=== PATIENT | female | born 1970 | race Caucasian/White ===

== ENCOUNTER 2024-10-27 14:57 | Emergency (ER) | payer OTHER, SELFPAY ==
[2024-10-27] VITALS (7 sets, daily range): BP systolic 114–153; BP diastolic 64–76; PULSE 56–71; TEMP 37.3; O2SAT 95–97; BMI 35.7
--- NOTE | 2024-10-27 15:24 | ED_ITS ---
HPI HPI - Extremity Injury (Lower) General Chief Complaint: Extremity Injury, Lower Stated Complaint: HIP PAIN Time Seen by Provider: 10/27/24 14:59 Source: patient Mode of arrival: walk-in Limitations: no limitations History of Present Illness HPI Narrative: Patient is a 54-year-old female presents to the ER with concerns of severe left hip pain patient states she had a fall around John time but did not have pain with the immediate fall she has had progressively worsening symptoms of pain into her left groin and left patient have progressed over the past month. She reports being to [facility] twice, her family doctor and a orthopedic clinic she is currently in physical therapy but states she keeps having worsening progressing pain. She denies any history of IV drug abuse she does smoke occasionally she has a medicine basket at the bedside which contains a prednisone taper, oxycodone, muscle relaxant, diclofenac and patient states that none of it is helping. Patient appears uncomfortable and tearful with movement she denies any abdominal pain, nausea or vomiting. Reports she had a CAT scans done at [facility] and we are awaiting those records for eval. Patient notes she has been getting hot and cold sweats as well. She can feel a clicking sensation in her hip but when the pain hits it is severe. She denies symptoms radiating down her legs she is using a walker to try to offload the leg, numbness or tingling in her bowel or bladder area. Injury: Left: hip Place: Reports home Severity: severe Relieving factors: Reports nothing Exacerbating factors: Reports weight bearing and movement Context: Reports fall Associated symptoms: Denies tingling Related Data Allergies Allergy/AdvReac Type Severity Reaction Status Date / Time No Known Drug Allergies Allergy Verified 10/27/24 15:08 Opioid HPI Opioid Management Most Recent Pain and Opioid Data: Last Pain Scale 9 10/27/24 15:59 10/27/24 Last MAR Pain Assessment 10/27/24 15:59 Review of Systems ROS Constitutional Reports: fever (subjective) and night sweats Eyes Denies: change in vision Ears, nose, mouth, and throat Denies: throat pain or neck pain Cardiovascular Denies: chest pain or palpitations Respiratory Denies: shortness of breath or cough Gastrointestinal Reports: abdominal pain (left groin pain); Denies: vomiting Genitourinary Denies: painful urination or urinary frequency Musculoskeletal Reports: extremity pain (left hip region); Denies: back pain Integumentary/Breast Denies: rash or itching Neurological Denies: headache Psychiatric Denies: anxiety PFSH PFSH Social History Little interest or pleasure in doing things: not at all Feeling down, depressed, or hopeless: not at all Exam Narrative Exam Narrative: Vital Signs reviewed and nurse's notes reviewed. The patient is not hypoxic. General: Alert, patient uncomfortable, tearful apprehensive and bracing with movement. Guarding left leg Skin: warm, intact, no pallor noted, no rash Head: Normocephalic, atraumatic Eye: Normal conjunctiva, EOMI Respiratory: No acute distress Abdomen: Normal bowel sounds, soft, tenderness in the left lower and left upper quadrant on initial palpation repeated palpation abdomen does not appear as tender or sore. nontender Hernia mid abdomen, no masses detected. No rebound, guarding, or rigidity noted. No midline pulsatile mass. Back: inspection of the back shows no obvious deformity, no swelling, no ecchymosis, contusion, abrasion, swelling, erythema, fluctuance or induration. No step offs or crepitus noted. No CVA tenderness noted bilaterally. Tenderness noted to . Straight leg raise on left is negative . Straight leg raise on right is negative Musculoskeletal: No deformity noted to bilateral lower extremities. no cyanosis or mottling noted. normal pulses at DP and PT 2+ bilaterally and symmetrically. Normal 5/5 strength at ankles with dorsiflexion and plantar flexion. Patient is able to ambulate with walker but painful. left hip with painless log roll. neg FADIR and neg FABERs.. Mild pain on end rom with External rotation, but not same pain pt feels in her groin. Normal sensation noted to the bilateral lower extremities. Pt notes occ burning into anterior thigh/ groin. Neurological: alert and oriented x4, normal sensory and motor observed. DTR 2+ at patellar and achilles bilaterally. 2 beat clonus on left Psychiatric: Cooperative Constitutional Vital Signs, click to edit/add: Last Vital Signs Temp 99.2 F 10/27/24 15:04 Pulse 71 10/27/24 15:04 Resp 18 10/27/24 15:04 BP 153/76 H 10/27/24 15:04 Pulse Ox 97 10/27/24 15:04 O2 Del Method Room Air 10/27/24 15:04 Course Vital Signs Vital signs: Vital Signs Temperature 99.2 F 10/27/24 15:04 Pulse Rate 71 10/27/24 15:04 Respiratory Rate 18 10/27/24 15:04 Blood Pressure 153/76 H 10/27/24 15:04 Pulse Oximetry 97 10/27/24 15:04 Oxygen Delivery Method Room Air 10/27/24 15:04 Temperature 99.2 F 10/27/24 15:04 Pulse Rate 71 10/27/24 15:04 Respiratory Rate 18 10/27/24 15:04 Blood Pressure 153/76 H 10/27/24 15:04 Pulse Oximetry 97 10/27/24 15:04 Oxygen Delivery Method Room Air 10/27/24 15:04 MDM - Extremity Injury (Lower) MDM Narrative Medical decision making narrative: Patient denies any illicit drug use or epidural injections she presents with severe left hip pain however on manipulation of the left hip the pain is not easily reproduced concern for lumbar radiculopathy or abdominal pathology patient with temp of 99.2 and she reports feeling hot and cold at times she has multiple prescriptions at the bedside appropriate for hip bursitis or lumbar radiculopathy symptoms but she reports no relief and has been in physical therapy and presents to our ER for further evaluation as symptoms have progressed and not improved with conservative measures. I had a lengthy discussion with the patient at bedside patient has continued pain but notes symptoms overall are improved. We discussed her laboratory studies. Patient reports being seen twice at [facility], ER and seeing a orthopedist at [facility] and has been to physical therapy once despite worsening symptoms patient states multiple times I am not taking these medications. We discussed the prescriptions of muscle relaxant prednisone likely being appropriate for her complaint and it would likely be beneficial.... patient later clarifies that she has not taken oxycodone because she cares for her grandchild . despite multiple request to [facility] for her previous studies and images, they report they are unable to fax at this time and are unable to send her medical record to us to help coordinate her care. Patient is able to ambulate with a walker here and occult fracture is less likely as she reports multiple xrays and CT's in [place]. I am more concerned with her abdominal tenderness and the potential for referred symptoms along the psoas. She reports her previous imaging was not with any contrast and I advised the risks and benefits of additional CT imaging. I drove all the way here from [place] so I want you to look into this. Patient verbally consenting to CT study. Patient verbally aware that her pain may not be coming from her hip as the laboratory technical specialist offered chair transport but patient elected to walk with her walker from room to the CT scanner and was able to carry on a conversation. Patient declined the need for any additional pain medications, I just need to find out what is going on. . Pt will have weight bearing hip xray and CT of Pelvis. Limited review left hip x-ray with pelvis shows a minimally displaced superior and inferior pelvic ramus fracture, Left hip joint appears unremarkable. Her pelvis fracture was discussed we recommend she continue with her walker limit weightbearing on the left leg as symptoms tolerate and take prescribed pain medication which she has at bedside for symptomatic relief. Stool softner also recommended. She is encouraged to follow-up with her ortho. She is aware that I do not have access to her records from [facility] to compare prior images where she reports having a CT scan. Aware of hematoma on the right kidney as she has had a fluid collection here in the past on previous scans. Patient has had a history of kidney stones in the past treated through [facility] The patient is to followup with primary care physician/ ortho in next 2-3 days or to return to the emergency department should any of the signs or symptoms worsen or new symptoms develop. Patient had questions answered. The patient agrees with the following Diagnosis and Treatment plan and the patient will be discharged home. Differential Diagnosis Differential diagnosis: Likely other (Left hip pain, AVN, hip snapping syndrome, lumbar radiculopathy, diverticulitis, aneurysm) Medical Records Medical records narrative: requested from [facility]- unable to send with FAXES down at 500[employer] ECG Data Attestation: I personally reviewed and interpreted this ECG as follows: Interpretation: EKG interpretation: Emergency Department physician interpretation, normal sinus rhythm 64 , no ectopy, no ST segment elevation, normal axis. Smoking Cessation Patient Acknowledges Need for Cessation: Yes Discharge Plan Discharge Chief Complaint: Extremity Injury, Lower Clinical Impression: Fracture of inferior pubic ramus Qualifiers: Encounter type: initial encounter Fracture type: closed Laterality: left Qualified Code(s): S32.592A - Other specified fracture of left pubis, initial encounter for closed fracture Fracture of superior pubic ramus Qualifiers: Encounter type: initial encounter Fracture type: closed Laterality: left Qualified Code(s): S32.512A - Fracture of superior rim of left pubis, initial encounter for closed fracture Patient Disposition: Home, Self-Care Time of Disposition Decision: 19:36 Condition: Good Mode of Transportation: Private Vehicle Print Language: Guatemalan Instructions: Pelvic Fracture (ED) Additional Instructions: Contact [facility] in [place] to discuss follow-up, recommend stopping physical therapy pending his evaluation. Continue with walker recommend no hard sitting and to take prescribed pain medication oxycodone or just Tylenol as needed. May stop prednisone. May stop muscle relaxants unless needed for sleep Referrals: Henri Herrera PA [Physician] - As soon as possible
--- NOTE | 2024-10-27 15:27 | ECG_ITS ---
The [facility] Test Date: 2024-10-27 Pat Name: SHARRI DIETZ Department: Room: - Gender: Female [employer]: : 1970 Requested By: [id number] Order Number: [id number] Reading MD: CHRISTEN REGAN Measurements Intervals [place] Rate: 64 P: 62 [place]: 142 QRS: 73 QRSD: 106 T: 44 QT: 410 QTc: 419 Interpretive Statements 1100 Sinus rhythm [address] depression 9150 abnormal ECG No previous ECG available for comparison Electronically Signed On 10-28-2024 7:39:23 EST by CHRISTEN REGAN
[2024-10-27 15:46] LABS: Basophils Percent Auto 0.7 % (0.2-2.0); Eosinophils Absolute Auto 0.3 10^3/uL (0.0-0.7); Eosinophils Percent Auto 4.8 % (0.9-7.0); Hemoglobin 10.4 g/dL (12.0-16.0); Immature Granulocytes Abs Auto 0.01 10^3/uL (0.00-0.03); Immature Granulocytes Pct Auto 0.2 % (0.0-0.5); Lymphocytes Absolute Auto 1.5 10^3/uL (1.2-3.8); Lymphocytes Percent Auto 27.5 % (20.5-60.0); Mean Corpuscular HGB Conc 31.5 g/dL (29.9-35.2); Mean Corpuscular Hemoglobin 27.4 pg (26.7-34.0); Mean Corpuscular Volume 86.8 fL (81.0-99.0); Mean Platelet Volume 10.2 fL (9.5-13.5); Monocytes Absolute Auto 0.4 10^3/uL (0.3-0.8); Monocytes Percent Auto 7.5 % (1.7-12.0); Neutrophils Absolute Auto 3.3 10^3/uL (1.4-6.5); Neutrophils Percent Auto 59.3 % (43.0-75.0); Platelet Count 237 10^3/uL (150-450); Red Cell Distribution Width 15.2 % (11.0-15.0); White Blood Count 5.6 10^3/uL (4.0-11.0)
[2024-10-27 15:53] LABS: Erythrocyte Sedimentation Rate 26 mm/hr (<=30)
[2024-10-27] MEDS: KETOROLAC TROMETHAMINE 30 MG/ML VIAL IVP (15:58)
[2024-10-27] MEDS: MORPHINE SULFATE 2 MG/ML SYRINGE IV (15:59)
[2024-10-27] MEDS: DIAZEPAM 10 MG/2 ML SYRINGE 2.5 MG IV (15:59)
[2024-10-27 16:03] LABS: Lactate/Lactic Acid 0.6 mmol/L (0.4-2.0)
[2024-10-27 16:04] LABS: C Reactive Protein <0.50 mg/dL (<=0.50); Troponin I High Sensitivity 5.9 pg/mL (4.0-51.3)
[2024-10-27 17:10] LABS: Bilirubin Urine NEGATIVE (NEGATIVE); Blood Urine NEGATIVE (NEGATIVE); Clarity Urine CLEAR (CLEAR); Color Urine YELLOW (YELLOW); Glucose Urine UA NEGATIVE (NEGATIVE); Ketones Urine NEGATIVE (NEGATIVE); Leukocyte Esterase Urine NEGATIVE (NEGATIVE); Nitrite Urine NEGATIVE (NEGATIVE); Protein Urine NEGATIVE (NEG/TRACE); Specific Gravity Urine >=1.030 (1.005-1.025); Urobilinogen Urine 0.2 EU/dL (0.2-1.0)
--- NOTE | 2024-10-27 17:11 | CT_ITS ---
[address] [address] Patient Name: SHARRI DIETZ MRN: [id number] date: 1970 Sex: F Assigned Patient Location: ER Current Patient Location: Accession/Order Number: [id number] Exam Date: 10/27/2024 17:45 Report Date: 10/27/2024 19:35 At the request of: DANETTE GALEAS Procedure: CT abdomen pelvis w con EXAMINATION: CT abdomen pelvis w con HISTORY: left lower quadrant abdominal pain/ left hip pain COMPARISON: No relevant comparison available. TECHNIQUE: Axial, Coronal, and Sagittal images were obtained without and/or with IV contrast as indicated by examination type. Dose reduction techniques were achieved by using automated exposure control and/or adjustment of mA and/or kV according to patient size and/or use of iterative reconstruction technique. FINDINGS: LUNG BASES: No visible pulmonary or pleural disease. LIVER: No enlargement, atrophy, suspicious density, or significant focal lesion. BILIARY: No dilatation or calcification. PANCREAS: No lesion, fluid collection, or abnormal duct dilatation. SPLEEN: No enlargement or focal lesion. ADRENALS: No mass or enlargement. KIDNEYS: Lateral right kidney subcapsular fluid collection favoring a hematoma. Multiple small calcifications within the sevilla suggesting this is chronic. Numerous nonobstructing calcifications within the superior pole calyces. Normal renal pelvis and ureter. BOWEL/MESENTERY: Diverticulosis of sigmoid colon without acute inflammatory changes. No visible mass, obstruction, or bowel wall thickening. AORTA/VASCULAR: Mild-moderate atherosclerotic disease. No aneurysm or dissection. RETROPERITONEUM: No mass or adenopathy. LYMPH NODES: No adenopathy. URINARY BLADDER: No visible focal wall thickening, lesion, or calculus. PELVIC ORGANS: Calcifications within uterus favoring leiomyomas.. Pelvic organs appropriate for patient age. ABDOMINAL WALL: Fat filled supraumbilical hernia 9.2 cm in diameter with wide neck; no strangulation. BONES: Nondisplaced fracture involving the lateral aspect of the left superior pubic ramus and the medial aspect of the left inferior pubic ramus. Subcutaneous fracture through posterior left iliac wing extending into the sacroiliac joint with fracture line still visible and sclerosis within the marrow cavity suggesting some component of healing. Heterogeneous sclerotic appearance of the right side of the sacrum suspected to represent prior fracture and some healing. OTHER: Negative. CT/CT abdomen pelvis w con IMPRESSION: 1. Nondisplaced fractures of the left superior and inferior pubic rami suspected to be acute. 2. Subacute fracture of the left iliac wing; nondisplaced. 3. Subacute to early chronic nondisplaced fracture suspected involving right side of sacrum. 4. right kidney subcapsular hematoma which is age indeterminant, but suspected to be more chronic since there are some small calcifications within the sevilla. 5. Large 9.62 cm fat filled supraumbilical ventral hernia; no strangulation.. Electronically authenticated by: REINALDO ALVAREZ Date: 10/27/2024 19:35
[2024-10-27 17:19] LABS: Bacteria Urine NONE SEEN #/HPF (NONE SEEN); Cast Seen? NONE SEEN #/LPF (NONE SEEN); Crystals Seen? None Seen #/HPF (None Seen); Mucus Urine NONE SEEN (NONE SEEN); RBC Urine 0-2 #/HPF (0-2); Squamous Epithelial Cell Urine FEW #/LPF (NONE/RARE); Urine Culture Indicated NO; WBC Urine NONE SEEN #/HPF (NONE SEEN)
--- NOTE | 2024-10-27 17:35 | XR_ITS ---
The [address] [address] Patient Name: SHARRI DIETZ MRN: [id number] date: 1970 Sex: F Assigned Patient Location: ER Current Patient Location: ER Accession/Order Number: [id number] Exam Date: 10/27/2024 17:45 Report Date: 10/27/2024 19:23 At the request of: DANETTE GALEAS Procedure: XR hip LT 2V w/ pelvis PROCEDURE: XR hip LT 2V w/ pelvis HISTORY: pain left hip COMPARISON: None. FINDINGS: BONES:Nonstress fractures of the left superior and inferior pubic rami. Mild narrowing of the hip joint spaces bilaterally without significant periarticular osteophytes. Degenerative disc disease and scoliosis of the visible lumbar spine. SOFT TISSUES:No visible soft tissue swelling. EFFUSION:None visible. OTHER: Negative. XR/XR hip LT 2V w/ pelvis IMPRESSION: 1. Acute nondisplaced left superior and inferior pubic rami fractures. Electronically authenticated by: REINALDO ALVAREZ Date: 10/27/2024 19:23
== END 2024-10-27 19:51 | disposition home or self-care (01) ==
PROVIDERS: Personal Emergency Response Attendant; Emergency Provider Emergency Medicine
DX: S32.592A Other specified fracture of left pubis, initial encounter for closed fracture (principal); S32.512A Fracture of superior rim of left pubis, initial encounter for closed fracture; W19.XXXA Unspecified fall, initial encounter; Z87.442 Personal history of urinary calculi
CPT/HCPCS: 36415; 73502; 74177; 81001; 83605; 83690; 84484; 85025; 85652; 86140; 87040; 93005; 96374; 96375; 99285; J1885; J2270; J3360; Q9967

== ENCOUNTER 2025-06-19 11:58 | Emergency (ER) | payer OTHER, SELFPAY ==
--- OUTSIDE RECORDS SUMMARY | 2024-08-01 10:00 | XMS_ITS ---
Author Organization [facility] Address [address] [place] [address] Care Team Providers Care Public Speaking Professor Name Role Phone Janie Sow Primary Care Provider [phone] Edwige Rick [phone] REASON FOR VISIT NEW PATIENT EXAM Encounters Encounter Location Date Provider Diagnosis [place] [address] [address] 08/01/2024 Edwige Rick Plan Of Treatment No Information Progress Notes * VERO DIETZADOB:1970 (54 yo F)Acc No.[id number]:08/01/2024 Patient: SHARRI HAND Provider: Vanessa Rick DDS :1970 A ge:53 Y S ex:Female Date:08/01/2024 Address:[address] [id number] Pcp:Janie Sow Subjective: * Chief Complaints: * 1 . NEW PATIENT EXAM. * Medical History: Objective: * Vitals: Assessment: Plan: * Treatment: * Images: * Electronic signature of Rasheeda Rick DDS on 06/19/2025 at 12:40 PM EDT Sign off status: Pending * Provider: Vanessa Rick DDS Date: 10/01/2023 Generated for Printi ng/Faxing/eTransmitting on: 0 06/19/2025 12:40 PM EDT
[2025-06-19 12:04] VITALS: BP 148/74; PULSE 68; TEMP 36.8; O2SAT 96; BMI 33.4
--- NOTE | 2025-06-19 12:16 | XR_ITS ---
The [address] [address] Patient Name: SHARRI DIETZ MRN: [id number] date: 1970 Sex: F Assigned Patient Location: ER Current Patient [facility]: [facility] Accession/Order Number: [id number] Exam Date: 06/19/2025 12:28 Report Date: 06/19/2025 12:51 At the request of: FILOMENA HERNANDEZ MD Procedure: XR pelvis 1-2V XR pelvis 1-2V 06/19/2025 12:34 PM SIGNS AND SYMPTOMS: ^Pain, pelvic fracture 8 months ago PROTOCOL: Frontal radiograph of the pelvis COMPARISON: 10/27/2024 FINDINGS: Healing displaced fractures of the left superior and inferior pubic rami are slightly more displacement the prior study. The superior ramus fracture is displaced caudally by 1.3 cm on the current study. There is periosteal new bone formation consistent with healing response. Sclerotic changes are noted in the sacroiliac joints, left greater than right with fractures along with a transversely oriented healing fracture of the left iliac wing. There is a levoconvex curvature of the lumbar spine with degenerative changes. XR/XR pelvis 1-2V IMPRESSION: Healing displaced fractures of the left superior and inferior pubic rami are slightly more displacement the prior study. The superior ramus fracture is displaced caudally by 1.3 cm on the current study. There is periosteal new bone formation consistent with healing response. Sclerotic changes are noted in the sacroiliac joints, left greater than right with fractures along with a transversely oriented healing fracture of the left iliac wing. Impression dictated by: Mika Urbina M.D. 06/19/2025 12:51 PM Dictation Location: [place] [address] Electronically authenticated by: [id number] Y Date: 06/19/2025 12:51
--- NOTE | 2025-06-19 12:20 | ED_ITS ---
HPI HPI - General Adult General Chief complaint: Headache Stated complaint: PELVIC AND HIP PAIN HEADACHE Time Seen by Provider: 06/19/25 12:13 Source: patient Mode of arrival: walk-in Limitations: no limitations History of Present Illness HPI narrative: 54-year-old female presented to the emergency department for pelvic pain. She broke her pelvis about 8 months ago when she fell and she continues to have pain. She is worried that it is not healing. She also complains of headache. No recent trauma or fever or localized weakness. She has been able to ambulate. Related Data Home Medications ?Medication ?Instructions ?Recorded ?Confirmed acetaminophen 325 mg tablet mg 06/19/25 calcium carbonate mg 06/19/25 escitalopram oxalate 10 mg tablet mg 06/19/25 meclizine 25 mg chewable tablet mg 06/19/25 pantoprazole 20 mg tablet,delayed mg PO 06/19/25 release Previous Rx's ?Medication ?Instructions ?Recorded acetaminophen 300 mg-codeine 30 mg 1 tab PO Q6H PRN pa in 5 days #20 06/19/25 tablet tabs Allergies Allergy/AdvReac Type Severity Reaction Status Date / Time No Known Drug Allergies Allergy Verified 06/19/25 12:06 Opioid HPI Opioid Management Most Recent Opioid Data: Last Pain Scale 9 10/27/24, 15:59 Last ED Pain Assessment Today, 12:05 Review of Systems ROS Narrative A ten point review of systems is negative except as noted above. PFSH PFSH Social History Little interest or pleasure in doing things: not at all Feeling down, depressed, or hopeless: not at all Exam Narrative Exam Narrative: Nurses note and vital signs reviewed and patient is not hypoxic. General:The patient appears in no apparent distress.Patient is sitting on the edge of the cart. Skin:Warm, dry, no pallor noted.There is no rash noted. Head:Normocephalic, atraumatic Eye: Normal conjunctiva, no drainage Ears, Nose, Mouth, and Throat: oral mucosa is moist. Nares patent. Cardiovascular:Regular Rate and Rhythm Respiratory:Patient is in no distress, no accessory muscle use, lungs are clear to auscultation, no wheezing, rales or rhonchi Back:non-tender GI: Soft and nontender Musculoskeletal: Hips have full range of motion. She is able to ambulate Neurological:A&O, normal speech Psychiatric:Cooperative Constitutional Vital Signs, click to edit/add: Last Vital Signs Temp 98.3 F 06/19/25 12:04 Pulse 68 06/19/25 12:04 Resp 14 06/19/25 12:04 BP 148/74 H 06/19/25 12:04 Pulse Ox 96 06/19/25 12:04 O2 Del Method Room Air 06/19/25 12:04 Course Vital Signs Vital signs: Vital Signs Temperature 98.3 F 06/19/25 12:04 Pulse Rate 68 06/19/25 12:04 Respiratory Rate 14 06/19/25 12:04 Blood Pressure 148/74 H 06/19/25 12:04 Pulse Oximetry 96 06/19/25 12:04 Oxygen Delivery Method Room Air 06/19/25 12:04 Temperature 98.3 F 06/19/25 12:04 Pulse Rate 68 06/19/25 12:04 Respiratory Rate 14 06/19/25 12:04 Blood Pressure 148/74 H 06/19/25 12:04 Pulse Oximetry 96 06/19/25 12:04 Oxygen Delivery Method Room Air 06/19/25 12:04 Medical Decision Making MDM Narrative Medical decision making narrative: X-ray and pelvis CT scans were performed and findings were discussed thoroughly with the patient. She has an orthopedist in [place] with whom she will be following and she was provided a disc with her images on it. She was provided prescription for Tylenol 3. Treatment diagnosis and follow-up were discussed with the patient. Differential Diagnosis Differential Diagnosis: Muscle strain, fracture Imaging Data Pelvis x-ray: Radiologist's impression: ITS Impressions Pelvis X-Ray 06/19/25 12:16 IMPRESSION: Healing displaced fractures of the left superior and inferior pubic rami are slightly more displacement the prior study. The superior ramus fracture is displaced caudally by 1.3 cm on the current study. There is periosteal new bone formation consistent with healing response. Sclerotic changes are noted in the sacroiliac joints, left greater than right with fractures along with a transversely oriented healing fracture of the left iliac wing. Impression dictated by: Mika Urbina M.D. 06/19/2025 12:51 PM Dictation Location: [place] [address] Electronically authenticated by: [id number] Y Date: 06/19/2025 12:[address] 06/19/25 12:57 IMPRESSION: Sclerotic changes are noted along both sides of the sacroiliac joints, greatest in the right sacral ala and within the left iliac bone consistent with healing fractures. There are nonunited fractures with healing response involving the left superior and inferior pubic rami with similar displacement when compared to the previous radiographs. Impression dictated by: Mika Urbina M.D. 06/19/2025 1:21 PM Dictation Location: [place] [address] Electronically authenticated by: [id number] Y Date: 06/19/2025 13:21 Discharge Plan Discharge Chief Complaint: Headache Clinical Impression: Fracture of inferior pubic ramus Qualifiers: Encounter type: initial encounter Fracture type: closed Laterality: left Qualified Code(s): S32.592A - Other specified fracture of left pubis, initial encounter for closed fracture Fracture of superior pubic ramus Qualifiers: Encounter type: initial encounter Fracture type: closed Laterality: left Qualified Code(s): S32.512A - Fracture of superior rim of left pubis, initial encounter for closed fracture Patient Disposition: Home, Self-Care Time of Disposition Decision: 13:41 Condition: Good Mode of Transportation: Private Vehicle Prescriptions / Home Meds: New acetaminophen-codeine 300-30 mg tablet 1 tab PO Q6H PRN (Reason: pain) 5 Days Qty: 20 0RF No Action acetaminophen 325 mg tablet pantoprazole 20 mg tablet,delayed release (DR/EC) PO calcium carbonate 600 mg calcium (1,500 mg) tablet meclizine 25 mg tablet,chewable escitalopram oxalate 10 mg tablet Print Language: British Instructions: Pelvic Fracture (ED) Additional Instructions: Follow-up with your new orthopedist in [place]. Referrals: Physician,Non-Staff, MD [Physician] - 1 week
--- OUTSIDE RECORDS SUMMARY | 2025-06-19 12:41 | XMS_ITS | Clinical Summary ---
Author Organization [facility] Address [address] [place] [address] Phone Care Team Providers Care Belt Maker Name Role Phone Unavailable Primary Care Provider Unavailabl e Social History Tobacco Use Types Packs/Day Years Used Date Smoking Tobacco: Never Assessed Comments Unknown Sex and Gender Information Value Date Recorded Sex Assigned at Not on file Legal Sex Female 4:46 PM EST Gender Identity Not on file Sexual Orientation Not on file Plan of Treatment Not on file
--- OUTSIDE RECORDS SUMMARY | 2025-06-19 12:41 | XMS_ITS | Clinical Summary ---
Author Organization [facility] Address [address] [place] [address] Care Team Providers Care Intermediate Frame Tender Name Role Phone Unavailable Primary Care Provider Unavailabl e Allergies No known active allergies Medications meloxicam (Mobic) 7.5 MG tablet Take 7.5 mg by mouth Daily Active ferrous sulfate 325 (65 Fe) MG EC tablet 08/30/2024 Active cyanocobalamin (Vitamin B-12) 1000 MCG tablet Take 1,000 mcg by mouth Daily 09/07/2024 Active cholecalciferol (Vitamin D-3) 1.25 MG (83636 UT) capsule Take 1,250 mcg by mouth 08/30/2024 Active Oyster Shell Calcium 500 MG tablet Take 2 tablets by mouth in the morning and 2 tablets before bedtime. 09/17/2024 Active predniSONE (Deltasone) 10 MG tabletIndication s:Low back pain, unspecified back pain laterality, unspecified chronicity, unspecified whether sciatica present Take 5 tabs p.o. daily x3 days Take 4 tabs p.o. daily x3 days Take 3 tabs p.o. daily x3 days Take 2 tabs p.o. daily x3 days Take 1 tab p.o. daily x3 days 45 tablet 10/10/2024 Active Active Problems No known active problems Encounters Date Type Department Care Team Description 04/04/2025 Telephone [facility] [address] [place] [address] Leodan Pittman DO pubic rami fx from Last 3 Months Social History Tobacco Use Types Packs/Day Years Used Date Smoking Tobacco: Unknown Smokeless Tobacco: Never Tobacco Cessation:Counseling Given: Not Answered Alcohol Use Standard Drinks/Week Comments Never 0 (1 standard drink = 0.6 oz pur e alcohol) Comments Unknown Sex and Gender Information Value Date Recorded Sex Assigned at Not on file Legal Sex Female 10:13 PM EDT Gender Identity Not on file Sexual Orientation Not on file Last Filed Vital Signs Vital Sign Reading Time Taken Comments Blood Pressure 134/79 06/18/2022 12:00 PM EDT Pulse - - Temperature - - Respiratory Rate - - Oxygen Saturation - - Inhaled Oxygen Concentration - - Weight 99.2 kg (218 lb 11.1 oz) 025 10:36 AM EST Height 170 cm (5' 6.93 ) 10/10/2024 10: 36 AM EST Body Mass Index 34.33 10/10/2024 10:36 AM EST Plan of Treatment Health Maintenance Due Date Last Done Comments CT Colonography 1970 Colonoscopy 1970 Colorectal Cancer Screening 1970 FIT-DNA 1970 FIT 1970 FOBT 1970 Sigmoidoscopy 1970 Mammogram 2010 Influenza Vaccine (#1) 2025 Pap Smear 11/03/2025 11/03/2022, 11/03/2022, 09/26 Cervical Cancer Screening 11/03/2027 HPV/Cotest 11/03/2027 11/03/2022 Insurance [employer]
--- OUTSIDE RECORDS SUMMARY | 2025-06-19 12:41 | XMS_ITS | Patient Health Record ---
Author Organization [facility] Address [address] [place] [address] Care Team Providers Care Mixer Machine Feeder Name Role Phone Janie Sow Primary Care Provider Edwige Rick Unavailable [phone] Reason For Referral No Information Plan Of Treatment No Information Insurance Providers Payer Name Payer Address Payer Phone Subscriber Number Group Number Insured Name Patient Relationship to Insured Coverage Start Date Coverage End Date [facility] [address] [place] [address] [id number] SHARRI DIETZ Self - patient is the insured 2 3
--- OUTSIDE RECORDS SUMMARY | 2025-06-19 12:41 | XMS_ITS | Clinical Summary ---
Author Organization [facility] Address [address] [place] [address] Care Team Providers Care Sane Rn Name Role Phone Asa Michael MD Unavailable [phone] Yari Barrientos MD Unavailable [phone] Elyse Siddiqi Research Nurse Unavailable U [facility] Davion Bearden MD Primary Care Provider [phone] Allergies No known active allergies Medications * This document contains information received from the source organization and may not represent a complete record from that organization. ranitidine (ZANTAC) 150 mg tablet Take 150 mg by mouth twice daily. Active multivitamin tablet Take 1 tablet by mouth once daily. Active oxybutynin ER (DITROPAN XL) 10 mg 24 hr tablet Take 10 mg by mouth once daily. Active ondansetron (ZOFRAN, HYDROCHLORIDE,) 8 mg tablet Take 1 tablet by mouth every 8 hours as needed for Nausea/Vomiting. 30 tablet 2 7 Active loperamide (IMODIUM) 2 mg cap(s) Take 1 capsule by mouth four times daily as needed. 30 capsule 1 7 Active Additional Information Patient not taking.Reason: Other, Reported on 12/02/2022 diphenoxylate-a tropine (LOMOTIL) 2.5-0.025 mg per tablet Take 2 tablets by mouth every 6 hours as needed for Diarrhea. 50 tablet 7 Active Additional Information Patient not taking.Reason: Other, Reported on 12/02/2022 potassium chloride (K-TAB) 10 mEq tablet Take 1 tablet by mouth once daily. 30 tablet [address] (PROTONIX) 40 mg tablet Take 1 tablet by mouth once daily. 30 tablet 7 Active ferrous sulfate 325 mg (65 mg iron) EC tablet Take 1 tablet by mouth once daily. 30 tablet 7 Active Loperamide HCl (ANTI-DIARRHEA) 2 mg tab Take 1 tablet by mouth as needed. 60 tablet 7 Active Additional Information Patient not taking.Reason: Other, Reported on 12/02/2022 phenazopyridine (PYRIDIUM, GERIDIUM) 100 mg tablet Take 1 tablet by mouth three times daily as needed. 30 tablet 7 Active oxyCODONE-aceta minophen (PERCOCET) 5-325 mg tablet Take 1 tablet by mouth every 6 hours as needed for Pain. 15 tablet 7 Active Additional Information Patient not taking.Reason: Other, Reported on 12/02/2022 amitriptyline (ELAVIL) 50 mg tablet Take 50 mg by mouth daily at bedtime. Active prochlorperazin e (COMPAZINE) 10 mg tablet TAKE 1 TABLET BY MOUTH EVERY 6 HOURS NEEDED 30 tablet 8 Active escitalopram oxalate (LEXAPRO) 10 mg tablet Take 1 tablet by mouth once daily. 1 8 Active meclizine (ANTIVERT) 25 mg tab take 1 tablet by mouth three times a day if needed for dizziness 3 Active Active Problems Problem Noted Date Diagnosed Date Diarrhea 01/10/2017 Overview (01/10/2017): secondary to chemotherapy Asthma with chronic obstructive pulmonary diseas e (COPD) 01/10/2017 Cancer of overlapping sites of cervix uteri 10/28 Gastroesophageal reflux disease without esophagi tis 11/02/2016 Acute posthemorrhagic anemia 11/02/2016 Family History Medical History Relation Comments Coronary Artery Disease Father Breast Cancer Maternal Aunt dx mid 50's, now (2016) 62 COPD Mother Breast Cancer Paternal Aunt dx 60's now () 70's Relation Status Comments Father Alive Maternal Aunt Alive Mother Paternal Aunt Alive Social History Tobacco Use Types Packs/Day Years Used Date Smoking Tobacco: Some Days Cigarettes 0.5 35 Smokeless Tobacco: Never Tobacco Cessation:Ready to Q uit: Not Asked; Counseling Given: Not Answered Comments:currently occasional 1-2 cigs, not daily Alcohol Use Standard Drinks/Week Comments Yes 0 (1 standard drink = 0.6 oz pur e alcohol) [facility] Area Deprivation Index Answer Date Jairon rded National Score (1-100), lower number is lower ri sk 82 01/18/2024 State Score (1-10), lower number is lower risk 7 01/18/2024 Data from: https://www.neighborhoodatlas.medicine.[facility]/. Last address used for calculation [address] 01/18/2024 Comments No Sex and Gender Information Value Date Recorded Sex Assigned at Not on file Legal Sex Female 9:47 AM EST Gender Identity Not on file Sexual Orientation Not on file Last Filed Vital Signs Vital Sign Reading Time Taken Comments Blood Pressure 131/55 12/02/2022 11:32 AM EST Pulse 62 12/02/2022 11:32 AM EST Temperature 37.3 C (99.1 F) 12/02/2022 11:32 AM EST Respiratory Rate 16 11/03/2022 10:01 AM EST Oxygen Saturation 96% 11/03/2022 10:01 AM EST Inhaled Oxygen Concentration - - Weight 89.4 kg (197 lb) 12/02/2022 11:32 AM EST Height 170 cm (5' 6.93 ) 01/10/2017 10:01 AM EDT Body Mass Index 30.92 01/10/2017 10:01 AM EDT Plan of Treatment Upcoming Encounters Date Type Department Care Team (Late st Contact Info) Description 06/19/2025 3:00 PM EDT Visit (SP) Office Gynecology Oncology [address] [place] [address] [place] [address] Sandra Kingsley APRN.DISPENSING LEAD [address] [place] [address] follow up Health Maintenance Due Date Last Done Comments Annual PCP Team Chronic Dise ase Visit 1988 Anxiety Screening 1988 Depression Screening 1988 HIV Screening 1988 Hepatitis C Screening 1988 Hepatitis B Vaccine (1 of 3 - 19+ 3-dose series) 1989 Pneumococcal Vaccine: 50+ (1 of 2 - PCV) [address] Colonography 2015 Cologuard (FIT-DNA) 2015 Colonoscopy 2015 Colorectal Cancer Screening 2015 Fecal Occult Blood 2015 Lipid Screening 2015 Sigmoidoscopy 2015 Shingrix Vaccine (1 of 2) 2020 Cervical Cancer Screening 11/03/20232022, 11/03/2022, 08/17/2019, Additional history exists DTaP,Tdap,Td Vaccine (2 - Td or Tdap) 04/23/2024 04/23/2014 Influenza Vaccine (#1) 2025 Diabetes Screening 11/01/2027 11/01/2024, 0 01/08/2018, 12/01/2016, Additional history exists Procedures Procedure Name Priority Date/Time Associated Diagnosis Comments PAP FLUID CERVICAL SCREENING Routine 11/03/2022 11:14 AM EST History of cervical cancer Encounter for follow-up surveillance of cervical cancer COMPREHENSIVE METABOLIC PANEL Routine 12/01/2016 3:15 PM EST Malignant neoplasm of overlapping sites of cervix (HCC) from Last 3 Months or Most Recently Relevant to Health Maintenance Results * PAP FLUID CERVICAL SCREENING (11/03/2022 11:14 AM EST) Case Report Gynecologic Cytology Report Case: [id number] Authorizing Provider: Janet Viera MD Collected: 11/03/2022 11:14 AM Ordering Location: Gynecology Oncology Received: 11/03/2022 11:54 AM First Screen: MANDA De, ASCP Rescreen: MANDA Saba ASCNakul Specimen: Pap, Stenotypist, Screening, CERVICAL SCREENING FLUID 11/09/2022 11:33 AM EST [facility] FINAL DIAGNOSIS A - CERVICAL SCREENING FLUID Satisfactory for interpretation, Limited cellularity Negative for Intraepithelial lesion or malignancy. Atrophic specimen 11/09/2022 11:33 AM EST [facility] at 1133 EST Clinical History HIST MALIGNANCY - DESCRIBE cervical cancer 11/09/2022 11:33 AM EST [facility] HPV Requested? Yes, automatic HPV patients over 30 11/09/2022 11:33 AM EST [facility] LMP Postmenopausal 11/09/2022 11:33 AM EST [facility] Pap Disclaimer The Pap Smear is a screening test for cervical cancer. False negative results occur with all screening tests, emphasizing the need for rescreening at recommended intervals, and clinical correlation. 11/09/2022 11:33 AM EST [facility] PAP Stenotypist Comment This specimen has been analyzed by the ThinPrep Imaging System, an automated imaging and review system, which assists the laboratory in evaluating cells on ThinPrep Pap tests. Following automated imaging, selected otero from every slide are reviewed by a continuity tester. 11/09/2022 11:33 AM EST [facility] Cytology Interpretation Negative for Intraepithelial lesion or malignancy. 11/09/2022 11:33 AM EST [facility] at 1133 EST Other Interpretation(s ) Atrophic specimen 11/09/2022 11:33 AM EST [facility] Performing Lab Technical component, continuity tester screening performed at [facility], [address] [place] [address] CLIA# [id number] Diagnostic interpretation performed at [facility], [address] [place] [address] CLIA# [id number] Audograph Operator: Roe Hughes M.D. 11/09/2022 11:33 AM EST [facility] Sterile Fluid/Body Fluid THINPREP CYTOLOGY TECHNIQUE / Unknown Non Blood / Unknown 11/03/2022 11:14 AM EST 11/03/2022 11:54 AM EST us Janet Viera MD CYTOLOGY Final R esult [facility] [address] [place] [address] [place] [address], [place] * (ABNORMAL) COMP METABOLIC PANEL (12/01/2016 3:15 PM EST) Pathologist [facility] Protein, Total 6.9 6.3 - 8.0 g/dL 12/02/2016 3:07 AM [facility] Albumin 4.1 3.9 - 4.9 g/dL 12/02/2016 3:07 AM [facility] Calcium 9.4 8.5 - 10.2 mg/dL 12/02/2016 3:07 AM [facility] Bilirubin, Total 0.2 0.2 - 1.3 mg/dL 12/02/2016 3:07 AM [facility] Alkaline Phosphatase 67 32 - 117 U/L 12/02/2016 3:07 AM [facility] AST 17 13 - 35 U/L 12/02/2016 3:07 AM [facility] Glucose 105(H) 74 - 99 mg/dL 12/02/2016 3:07 AM [facility] Comment: The [place] Diabetes Association (ADA) provides guidance for cutoff values for fasting glucose and random glucose. The ADA defines fasting as no caloric intake for at least 8 hours. Fasting plasma glucose results between 100 to 125 mg/dL indicate increased risk for diabetes (prediabetes). Fasting plasma glucose results greater than or equal to 126 mg/dL meet the criteria for diagnosis of diabetes. In the absence of unequivocal hyperglycemia, results should be confirmed by repeat testing. In a patient with classic symptoms of hyperglycemia or hyperglycemic crisis, random plasma glucose results greater than or equal to 200 mg/dL meet the criteria for diagnosis of diabetes. Reference: Standards of Medical Care in Diabetes 2016, [place] Diabetes Association. Diabetes Care. 2016.39(Suppl 1). BUN 12 7 - 21 mg/dL 12/02/2016 3:07 AM [facility] Creatinine 0.57(L) 0.58 - 0.96 mg/dL 12/02/2016 3:07 AM [facility] Sodium 141 136 - 144 mmol/L 12/02/2016 3:07 AM [facility] Potassium 4.4 3.7 - 5.1 mmol/L 12/02/2016 3:07 AM [facility] Chloride 102 97 - 105 mmol/L 12/02/2016 3:07 AM [facility] CO2 25 22 - 30 mmol/L 12/02/2016 3:07 AM EST [facility] Anion Gap 14 9 - 18 mmol/L 12/02/2016 3:07 AM [facility] ALT 14 7 - 38 U/L 12/02/2016 3:07 AM [facility] eGFR- >60 12/02/2016 3:07 AM [facility] eGFR-All Other Races >60 . 12/02/2016 3:07 AM [facility] Comment: eGFR (Estimated GFR) Units of measure: mL/min/1.73 meters squared eGFR is derived from the reexpressed MDRD Study equation using the following parameters: serum creatinine, age, gender and race. The creatinine assay has been calibrated to be traceable to IDMS. An eGFR <60 mL/min/1.73m2 for >3 months is consistent with chronic kidney disease. Refer to KDOQI guidelines for clinical interpretation. In patients with unstable renal function, e.g. those with acute kidney injury, the eGFR may not accurately reflect actual GFR. Blood specimen (specimen) BLOOD SPECIMEN / Unknown 12/01/2016 3:15 PM EST 12/01/2016 3:28 PM EST [facility] LABOR[facility] Final Result Performing Organization Address City/State/[facility] Co de Phone Number [facility] [address] [place] [address] from Last 3 Months or Most Recently Relevant to Health Maintenance Insurance [facility] MEDICAID Advance Directives Documents on File Type Date Recorded Patient Tracer Bullet Section Supervisor Expl anation Advance Directive(s) 01/10/2017 11:40 AM Care Teams Sane Rn Relationship Specialty Start Date End Date Davion Bearden MD [address] [place] [address] PCP - General Family Medicine 04/19/18 [place] [address] [place], [place] [id number] Physician Radiation Oncology 11/08/16 Yari Barrientos MD [address] [place], [place] [id number] Physician Radiation Oncology 11/24/16 Elyse Siddiqi, Research Nurse [address], [address] [place] [address] Specialty Pottery Striper Radiation Oncology 03/10/17
--- OUTSIDE RECORDS SUMMARY | 2025-06-19 12:41 | XMS_ITS | Clinical Summary ---
Author Organization [facility] Address [address] [place] [address] Care Team Providers Care Forest Patrolman Name Role Phone Unavailable Primary Care Provider Unavailabl e Encounters Date Type Department Care Team Description 06/13/2025 Transcribe Orders [facility] Neurology [address] [place] [address] System, Provider Not In DDD (degenerative disc disease), lumbosacral (Primary Dx); Left-sided low back pain with sciatica; Scoliosis, unspecified scoliosis type, unspecified spinal region; Recurrent headache; Pelvis fracture (HCC) from Last 3 Months Social History Tobacco Use Types Packs/Day Years Used Date Smoking Tobacco: Never Assessed Comments Unknown Sex and Gender Information Value Date Recorded Sex Assigned at Not on file Legal Sex Female 8:52 AM EDT Gender Identity Not on file Sexual Orientation Not on file Plan of Treatment Not on file Insurance [employer]
--- OUTSIDE RECORDS SUMMARY | 2025-06-19 12:41 | XMS_ITS ---
Author Organization [facility] Address [address] [place] [address] Care Team Providers Care Paper Cap Machine Operator Name Role Phone Asa Michael MD Unavailable [phone] Yari Barrientos MD Unavailable [phone] Elyse Siddiqi Research Nurse Unavailable [facility] Davion Bearden MD Primary Care Provider [phone] Active Problems * This document contains information received from the source organization and may not represent a complete record from that organization. Problem Noted Date Diagnosed Date Diarrhea 01/10/2017 Overview (01/10/2017): secondary to chemotherapy Asthma with chronic obstructive pulmonary diseas e (COPD) 01/10/2017 Cancer of overlapping sites of cervix uteri 10/28 Gastroesophageal reflux disease without esophagi tis 11/02/2016 Acute posthemorrhagic anemia 11/02/2016 Current Treatment and Therapy Plans No current plan information found. Past Treatment and Therapy Plans DINING ROOM MANAGER/ONC Plan Name Start Date Discontinue Date Treatment Medications Discontinue Reason Plan Provider Cycles CISPLATIN 40 D1,8,15,22, 29,36 - ONCE 12/07/19 17 02/27/2018 CISplatin iv piggyback or iv infusionfosaprepitant (EMEND)fosaprepitant iv piggyback in NaCl 0.9% (EMEND) Other Akbar, Michele P 1 of 1 cycle started CISPLATIN 40 D1,8,15,22, 29,36 - ONCE 12/08/19 17 12/06/2016 CISplatin iv piggyback or iv infusion Other Akbar, Michele P Treatment not started NON-CHEMO 1 Plan Name Start Date Discontinue Date Treatment Medications Discontinue Reason Plan Provider Cycles NS 1000ML IV DURING VISIT 12/08/2016 02/27/2018 No medications scheduled. Michele Virk 2 of 2 cycles started
--- OUTSIDE RECORDS SUMMARY | 2025-06-19 12:41 | XMS_ITS | Encounter Summary ---
Author Organization [facility] Address [facility] [place] [address] Care Team Providers Care Teacher Kindergarten Name Role Phone Asa Michael MD Unavailable [phone] Yari Barrientos MD Unavailable [phone] Elyse Siddiqi Research Nurse Unavailable U Davion Carter MD Primary Care Provider [phone] Source Comments In the event this information is protected by the Federal Confidentiality of Alcohol and Drug AbusePatient Records regulations: The Federal rules restrict any use of the information to criminally investigate or prosecute any alcohol or drug abuse patient.[facility] Encounter Details Date Type Department Care Team (Late st Contact Info) Description 11/09/2022 Patient Msg Gynecology Oncology [address] [place] [address] Janet Viera MD [address] [place] [address] Pap results Social History Tobacco Use Types Packs/Day Years Used Date Smoking Tobacco: Some Days Cigarettes 0.5 35 Smokeless Tobacco: Never Comments:currently occasiona l 1-2 cigs, not daily Alcohol Use Standard Drinks/Week Comments Yes 0 (1 standard drink = 0.6 oz pur e alcohol) [facility] Area Deprivation Index Answer Date Jairon rded National Score (1-100), lower number is lower ri sk 87 10/08/2022 State Score (1-10), lower number is lower risk N ot on file 10/08/2022 Data from: https://www.neighborhoodatlas.[facility]/. Last address used for calculation [address] 10/08/2022 Comments No Sex and Gender Information Value Date Recorded Sex Assigned at Not on file Legal Sex Female 9:47 AM EST Gender Identity Not on file Sexual Orientation Not on file documented as of this encounter Functional Status * Are you deaf or do you have serious difficulty hearing? Answer Date of Assessment Author No 11/04/2016 7:04 PM Akila Cunningham RN * Are you blind or do you have serious difficulty seeing, even when wearing glasses? Answer Date of Assessment Author No 11/04/2016 7:04 PM Akila Cunningham RN * Do you have serious difficulty walking or climbing stairs? Answer Date of Assessment Author No 11/04/2016 7:04 PM Akila Cunningham RN * Do you have difficulty dressing or bathing? Answer Date of Assessment Author No 11/04/2016 7:04 PM Akila Cunningham RN * Because of a physical, mental, or emotional condition, do you have difficulty doing errands alone such as visiting a doctor's office or shopping? Answer Date of Assessment Author No 11/04/2016 7:04 PM Akila Cunningham RN documented as of this encounter Mental Status * Because of a physical, mental, or emotional condition, do you have serious difficulty concentrating, remembering, or making decisions? Answer Entry Date Author No 11/04/2016 7:04 PM Akila Cunningham RN documented in this encounter Plan of Treatment Upcoming Encounters Date Type Department Care Team (Late st Contact Info) Description 06/19/2025 3:00 PM EDT Visit (SP) Office Gynecology Oncology [address] [place] [address] [place] [address] Sandra Kingsley APRN.PRIVATE CHEF [address] [place] [address] follow up documented as of this encounter Visit Diagnoses Not on filedocumented in this encounter Care Teams Teacher Kindergarten Relationship Specialty Start Date End Date Davion Bearden MD [address] [place] [address] PCP - General Family Medicine 04/19/18 [place] [address] [place], [place] [id number] Physician Radiation Oncology 11/08/16 Yari Barrientos MD [address] [place], [place] [id number] Physician Radiation Oncology 11/24/16 Elyse Siddiqi, Research Nurse [address] [place] [address] Specialty Solar Installation Helper Radiation Oncology 03/10/17 documented as of this encounter
--- OUTSIDE RECORDS SUMMARY | 2025-06-19 12:41 | XMS_ITS | Encounter Summary ---
Author Organization [facility] Address [address] [place] [address] Care Team Providers Care Rn Care Manager Name Role Phone Unavailable Primary Care Provider Unavailabl e Reason for Referral * Evaluate and Treat (Routine) - Authorized Specialty Diagnoses / Procedures Referred By Contac t Referred To Contact Neurosurgery Diagnoses DDD (degenerative disc disease), lumbosacral Left-sided low back pain with sciatica Scoliosis, unspecified scoliosis type, unspecified spinal region Recurrent headache Pelvis fracture (HCC) System, Provider Not In [facility] Scheduling [place] Referral ID Status Reason Start Date Expiration Date V isits Requested Visits Authorized [id number] Authorized 06/13/2025 06/13/2026 1 1 Encounter Details Date Type Department Care Team (Late st Contact Info) Description 06/13/2025 Transcribe Orders [facility] [address] [place] [address] System, Provider Not In DDD (degenerative disc disease), lumbosacral (Primary Dx); Left-sided low back pain with sciatica; Scoliosis, unspecified scoliosis type, unspecified spinal region; Recurrent headache; Pelvis fracture (HCC) Social History Tobacco Use Types Packs/Day Years Used Date Smoking Tobacco: Never Assessed Comments Unknown Sex and Gender Information Value Date Recorded Sex Assigned at Not on file Legal Sex Female 8:52 AM EDT Gender Identity Not on file Sexual Orientation Not on file documented as of this encounter Plan of Treatment Scheduled Referrals Name Type Priority Associated Diagnoses Orde r Schedule Ambulatory referral to Neurosurgery Outpatient Referral Routine DDD (degenerative disc disease), lumbosacral Left-sided low back pain with sciatica Scoliosis, unspecified scoliosis type, unspecified spinal region Recurrent headache Pelvis fracture (HCC) Ordered: 06/13/2025 documented as of this encounter Visit Diagnoses Diagnosis DDD (degenerative disc disease), lumbosacral- Primary Degeneration of lumbar or lumbosacral intervertebral disc Left-sided low back pain with sciatica Scoliosis, unspecified scoliosis type, unspecified spinal region Recurrent headache Pelvis fracture (HCC) Unspecified closed fracture of pelvis documented in this encounter
--- OUTSIDE RECORDS SUMMARY | 2025-06-19 12:49 | XMS_ITS | CCD ---
Author Organization [facility] Care Team Providers Care Upper [place] Name Role Phone CIPRIANO BARRAGAN Unavailable Unavailable MADELIN MONTALVO Unavailable Unavailable Brooke GLEASON Primary Care Physician Misty ROTHMAN Unavailable Heaven Hair Unavailable Unavailable Julee Castro Primary Care Physician Rangel Reyez Primary Care Physician Unavail able Asa Michael MD Unavailable [phone] Yari Barrientos MD Unavailable Elyse Siddiqi RN Unavailable Unavailable Osvaldo Bearden MD Primary Care Provider [phone] OSVALDO BEARDEN Primary Care Unavailable CATE VALDEZ Referring Unavailable DENIS VIERA Attending Unavailab Rangel Nam Primary Care Physician Unavail able Elyse Siddiqi RN Unavailable Unavailable Brigitte Garcia Primary Care Physician Todd Fleming Attending Unavailable Todd Fleming Attending Unavailable Todd Fleming Attending Unavailable DO Micah Greer Attending Unavailable Brigitte Garcia Attending Unavailable DO Micah Greer Attending Unavailable Ralph Platt Attending Unavailable Haim Astrrossana Gates Attending Unavailable Brigitte Garcia Attending Unavailable Iban Haji Attending Unavailable Stefano Marino Attending Unavailable Iban Haji Attending Unavailable Dann Whitmore Attending Unavailable Stefano Marino Attending Unavailable Stefano Marino Attending Unavailable Todd Fleming Attending Unavailable Jose, Brigitte L Attending Unavailable Jose, Brigitte L Admitting Unavailable Iban Haji Attending Unavailable Stefano Marino Attending Unavailable DO Ralph Platt Attending Unavailable Jose, Brigitte L Attending Unavailable Jose, Brigitte L Attending Unavailable Jose, Brigitte L Attending Unavailable Todd Fleming Attending Unavailable Bernadette, Todd Attending Unavailable Bernadette, Todd Attending Unavailable DO Micah Greer A Attending Unavailable DoDO Micah moya A Attending Unavailable Jose, Brigitte L Attending Unavailable Jose, Brigitte L Admitting Unavailable Jose, Brigitte L Admitting Unavailable Jose, Brigitte L Attending Unavailable Jose, Brigitte L Admitting Unavailable Jose, Brigitte L Attending Unavailable Unavailable [facility], Brigitte L Primary Care Physician [phone] Ralph Platt Attending Unavailable Hajdari, Astrit H Attending Unavailable Hajdari, Astrit H Attending Unavailable Jose, Brigitte L Attending Unavailable Jose, Brigitte L Attending Unavailable Jose, Brigitte L Attending Unavailable Jose, Brigitte L Referring Unavailable Elyse Siddiqi RN Unavailable Unavailable Osvaldo Bearden MD Primary Care Provider [phone] Hajdari, Astrit H Attending Unavailable Hajdari, Astrit H Attending Unavailable Jose, Brigitte L Referring Unavailable Jose, Brigitte L Attending Unavailable Jose, Brigitte L Admitting Unavailable Stefano Marino Attending Unavailable Leon Marti Primary Care Physician Elayne Adler Primary Care Physician CHAPO BAUMAN Attending Unavailable KIZZY HERRERA Referring Unavailable KIZZY HERRERA Attending Unavailable JOSE, BRIGITTE Referring Unavailable Elayne Adler Attending Unavailable Elayne Adler Attending Unavailable Elayne Adler Attending Unavailable Elayne Adler Attending Unavailable Iban Haji Attending Unavailable Stefano Marino Attending Unavailable Haim, Astrit H Attending Unavailable Haim, Astrit H Attending Unavailable Todd Fleming Attending Unavailable Elayne Adler Attending Unavailable DO Micah Greer Attending Unavailable Iban Haji Attending Unavailable Micah Greer Attending Unavailable Elayne Adler Attending Unavailable Haim, Astrit H Attending Unavailable Micah Greer Attending Unavailable Mahesh Polo Attending Unavailable Todd Fleming Attending Unavailable Mateusz Rodriguez Attending Unavailable Harenetta, Astrit H Attending Unavailable NONE, XXXX Primary Care Physician Unavailab le Unavailable Primary Care Provider UnavailLeon Doherty Attending Unavailable Leon Haro Attending Unavailable Leon Haro Admitting Unavailable Haim, Astrit H Attending Unavailable Elayne Adler Attending Unavailable Leon Haro Attending Unavailable Haim, Astrit H Attending Unavailable Elayne Adler Attending Unavailable Sg Kaminski Attending Unavailab le Sg Kaminski Admitting Unavailab le NO FAMILY, PHYSICIAN Primary Care Unavailable Leon Haro Attending Unavailable Leon Haro Admitting Unavailable Medications Current Medications Medication Drug Class(es) Dates Sig (Normalized) Sig (Original) acetaminophen 325 mg disintegrating oral tablet (7 sources) Start: 05-25-2025 take 1 tablet by mouth every four hours as needed for pain acetaminophen 325 mg oral tablet, disintegrating 325 mg = 1 tab(s), Oral, q4hr, PRN for pain, # 50 tab(s), Refills(s) 0, Pharmacy: [email or web address] #[id number], 167, cm, 05/25/25 15:56:00 EDT, Height/Length Dosing, 96, kg, 05/25/25 15:56:00 EDT, Weight Dosing Start Date: 05/25/25 Status: Ordered Quantity: 50.0 Unit: tab(s) Repeat number: 1 Start: 05-05-2024 take 2 tablets by mo uth every four hours as needed for pain acetaminophen 325 mg Tab 650 mg = 2 tab(s), Oral, q4hr, PRN Pain/Fever, # 30 tab(s), Refills(s) 0, Pharmacy: [facility] #[id number], 170.2, cm, 05/05/24 15:35:00 EDT, Height/Length Dosing, 96.1, kg, 05/05/24 15:35:00 EDT, Weight Dosing Start Date: 05/05/24 Status: Ordered acetaminophen 325 mg / butalbital 50 mg / caffeine 40 mg oral tablet (11 sources) Barbiturate, Central Nervous System Stimulant, Methylxanthine Start: 05-07-2025 take 1 tablet by mouth every four hours for headache APAP/butalbital/caffeine 325 mg-50 mg-40 mg Tab 1 tab(s), Oral, q4hr for headache, 15 tab(s), Refill(s) 0, [email or web address] #[id number], 167.6, cm, 05/07/25 12:10:00 EDT, Height/Length Dosing, 96.5, kg, 05/07/25 12:10:00 EDT, Weight Dosing Start Date: 05/07/25 Status: Ordered Quantity: 15.0 Unit: tab(s) Repeat number: 1 Start: 02-18-2025 take 2 tablets by mo uth every six hours for headache APAP/butalbital/caffeine 325 mg-50 mg-40 mg Tab 2 tab(s), Oral, q6hr for headache, 20 tab(s), Refill(s) 0 Start Date: 02/18/25 Status: Ordered Quantity: 20.0 Unit: tab(s) Repeat number: 1 acetaminophen 325 mg / oxyCODONE hydrochloride 5 mg oral tablet (20 sources) Opioid Agonist Start: 10-14-2024 Percocet 5 mg- 325 mg oral tablet 1 tab(s), Oral, q6hr as needed for pain, 12 tab(s), Refill(s) 0, [email or web address] #[id number], 170, cm, 10/14/24 12:06:00 EST, Height/Length Dosing, 99.2, kg, 10/14/24 12:06:00 EST, Weight Dosing Start Date: 10/14/24 Status: Ordered Quantity: 12.0 Unit: tab(s) Repeat number: 1 Indications: Strain of adductor muscle, fascia and tendon of left thigh, initial encounter; Start: 12-12-2023 End: 12-15-2023 acetaminophen-oxycodone 325 mg-5 mg Tab 1 tab(s), Oral, q4hr for pain for 3 day(s), 12 tab(s), Refill(s) 0, [facility] #[id number], 170, cm, 12/12/23 12:49:00 EDT, Height/Length Dosing, 92, kg, 12/12/23 12:49:00 EDT, Weight Dosing Start Date: 12/12/23 Stop Date: 12/15/23 Status: Ordered Start: 11-21-2021 Percocet 325 m g-5 mg Tab 1 tab(s), Oral, q4hr as needed for pain, 15 tab(s), Refill(s) 0, Take one tab by mouth every four hours as needed for pain Start Date: 11/21/21 Status: Ordered Start: 11-21-2021 Percocet 325 m g-5 mg Tab 1 tab(s), Oral, q4hr as needed for pain, 15 tab(s), Refill(s) 0, Take one tab by mouth every four hours as needed for pain Start Date: 11/21/21 Status: Ordered Start: 01-28-2017 End: 08-28-2024 Percocet 5 mg-325 mg oral ta blet 1 tab(s), Oral, q6hr for 3 day(s), 12 tab(s), Refill(s) 0, [email or web address] #[id number], 170, cm, 08/24/24 23:22:00 EST, Height/Length Dosing, 101, kg, 08/24/24 23:22:00 EST, Weight Dosing Start Date: 08/25/24 Stop Date: 08/28/24 Status: Ordered Comment on above: Take 1 tablet by queenie th every 6 hours as needed for Pain. albuterol CFC free 90 mcg/inh Inh Aer w/Adapt 8 gm (Ventolin) (4 sources) Start: 06-02-2022 take 1 puff(s) by inhalation every six hours for wheezing albuterol CFC free 90 mcg/inh Inh Aer w/Adapt 8 gm (Ventolin) 1 puff(s), Inhalation, q6hr for wheezing, 8.5 gm, Refill(s) 0, [facility] #[id number], 168, cm, 06/02/22 9:45:00 EDT, Height/Length Dosing, 93, kg, 09/07/22 9:45:00 EDT, Weight Dosing Start Date: 06/02/22 Status: Ordered albuterol HFA 90 mcg/inh MDI (20 sources) Start: 08-15-2024 take 2 puff(s) by inhalation every four hours for wheezing albuterol HFA 90 mcg/inh MDI 2 puff(s), Inhalation, q4hr for wheezing, 18 gm, Refill(s) 3, [email or web address] #[id number], 170, cm, 08/15/24 13:38:00 EST, Height/Length Dosing, 98.9, kg, 08/15/24 13:38:00 EST, Weight Dosing Start Date: 08/15/24 Status: Ordered Quantity: 18.0 Unit: g Repeat number: 4 Indications: Nicotine dependence, unspecified, uncomplicated; Start: 08-15-2024 take 2 puff(s) by in halation every four hours for wheezing albuterol HFA 90 mcg/inh MDI 2 puff(s), Inhalation, q4hr for wheezing, 18 gm, Refill(s) 3, [email or web address] #[id number], 170, cm, 08/15/24 13:38:00 EST, Height/Length Dosing, 98.9, kg, 08/15/24 13:38:00 EST, Weight Dosing Start Date: 08/15/24 Status: Ordered Quantity: 18.0 Unit: g Repeat number: 4 Indication: Nicotine dependence, unspecified, uncomplicated Start: 08-15-2024 take 2 puff(s) by in halation every four hours for wheezing albuterol HFA 90 mcg/inh MDI 2 puff(s), Inhalation, q4hr for wheezing, 18 gm, Refill(s) 3, [email or web address] #[id number], 170, cm, 08/15/24 13:38:00 EST, Height/Length Dosing, 98.9, kg, 08/15/24 13:38:00 EST, Weight Dosing Start Date: 08/15/24 Status: Ordered Start: 12-08-2023 take 2 puff(s) by in halation every four hours for wheezing albuterol HFA 90 mcg/inh MDI 2 puff(s), Inhalation, q4hr for wheezing, 18 gm, Refill(s) 0, [facility] #[id number], 170, cm, 12/08/23 13:13:00 EDT, Height/Length Dosing, 92.3, kg, 12/08/23 13:13:00 EDT, Weight Dosing Start Date: 12/08/23 Status: Ordered Start: 10-10-2021 End: 10-10-2021 take 2 puff(s) by inhalation every four hours for wheezing albuterol HFA 90 mcg/inh MDI 2 puff(s), Inhalation, q4hr for wheezing, 18 gm, Refill(s) 0, [facility] #[id number], 170, cm, 10/10/21 15:05:00 EST, Height/Length Dosing, 88.5, kg, 10/10/21 15:05:00 EST, Weight Dosing Start Date: 10/10/21 Stop Date: 10/10/21 Status: Ordered amitriptyline hydrochloride 50 mg oral tablet (7 sources) Tricyclic Antidepressant take 1 tablet by mouth once daily at bedtime amitriptyline (ELAVIL) 50 mg tablet Take 50 mg by mouth daily at bedtime. Active Comment on above: Take 50 mg by mouth daily at bedtime. amoxicillin 500 mg oral capsule (2 sources) Penicillin-class Antibacterial Start: take 1 capsule by mouth every twelve hours amoxicillin 500 mg Cap 500 mg = 1 cap(s), Oral, q12hr, # 20 cap(s), Refills(s) 0, Pharmacy: [facility] #[id number], 168, cm, 11/23/22 21:09:00 EST, Height/Length Dosing, 87.4, kg, 11/23/22 21:09:00 EST, Weight Dosing Start Date: 11/23/22 Status: Ordered amoxicillin 875 mg / clavulanate 125 mg oral tablet (1 source) Penicillin-class Antibacterial Start: End: Augmentin 875 mg-125 mg Tab 1 tab(s), Oral, BID for 10 day(s), 20 tab(s), Refill(s) 0, [facility] #[id number], 170, cm, 11/26/23 17:28:00 EST, Height/Length Dosing, 91.8, kg, 11/26/23 17:28:00 EST, Weight Dosing Start Date: 11/26/23 Stop Date: 12/06/23 Status: Ordered atropine sulfate 0.025 mg / diphenoxylate hydrochloride 2.5 mg oral tablet (7 sources) Anticholinergic, Cholinergic Muscarinic Antagonist, Antidiarrheal Start: 017 take 2 tablets by mouth every six hours as needed diphenoxylate-atropi ne (LOMOTIL) 2.5-0.025 mg per tablet Take 2 tablets by mouth every 6 hours as needed for Diarrhea. 50 tablet 12/24/2016 Active Comment on above: Take 2 tablets by [facility] every 6 hours as needed for Diarrhea. brompheniramine maleate 0.4 mg/ml / dextromethorphan hydrobromide 2 mg/ml / pseudoephedrine hydrochloride 6 mg/ml oral solution (7 sources) alpha-Adrenergic Agonist, Uncompetitive M-cevoij-R-aspartate Receptor Antagonist, Sigma-1 Agonist Start: 024 take 5 mL by mouth four times daily Bromfed DM oral syrup 5 mL, Oral, QID for cold symptoms, 200 mL, Refill(s) 0, [facility] #[id number], 170, cm, 11/26/23 17:28:00 EST, Height/Length Dosing, 91.8, kg, 11/26/23 17:28:00 EST, Weight Dosing Start Date: 11/26/23 Status: Ordered Start: 11-14-2023 End: 11-16-2023 Bromfed DM oral syrup 10 mL, Oral, q4hr for cold symptoms for 2 day(s), 80 mL, Refill(s) 0, MAX 40 mL/day, [facility] #[id number], 170, cm, 11/14/23 12:31:00 EST, Height/Length Dosing, 91.8, kg, 11/14/23 12:31:00 EST, Weight Dosing Start Date: 11/14/23 Stop Date: 11/16/23 Status: Ordered Start: 12-19-2020 take 5 mL by mouth f our times daily Bromfed DM oral syrup 5 mL, Oral, QID for cold symptoms, 200 mL, Refill(s) 0 Start Date: 12/19/20 Status: Ordered calcium carbonate 1500 mg oral tablet (20 sources) Start: 06-11-2025 take 1 tablet by mouth twice daily calcium (as carbonate) 600 mg oral tablet 600 mg = 1 tab(s), Oral, BID, # 60 tab(s), Refills(s) 0, Pharmacy: [facility] #[id number], 167, cm, 06/03/25 17:09:00 EDT, Height/Length Dosing, 97.3, kg, 06/03/25 17:09:00 EDT, Weight Dosing Start Date: 06/11/25 Status: Ordered Quantity: 60.0 Unit: tab(s) Repeat number: 1 Start: 06-03-2025 take 5 tablets by [facility] twice daily calcium 500 mg tablets 2,500 mg = 2 tab(s), Oral, BID, # 360 tab(s), Refills(s) 3, Pharmacy: [facility] #[id number], 167, cm, 06/03/25 17:09:00 EDT, Height/Length Dosing, 97.3, kg, 06/03/25 17:09:00 EDT, Weight Dosing Start Date: 06/03/25 Status: Ordered Quantity: 360.0 Unit: tab(s) Repeat number: 4 Start: 09-17-2024 take 2 tablets by ma ut in the morning Oyster Shell Calcium 500 MG tablet Take 2 tablets by mouth in the morning and 2 tablets before bedtime. 09/17/2024 Active Start: 09-07-2024 take 5 tablets by [facility] twice daily calcium 500 mg tablets 2,500 mg = 2 tab(s), Oral, BID, # 360 tab(s), Refills(s) 3, Pharmacy: [facility] #[id number], 170, cm, 09/07/24 11:19:00 EST, Height/Length Dosing, 99.2, kg, 09/07/24 11:19:00 EST, Weight Dosing Start Date: 09/07/24 Status: Ordered Quantity: 360.0 Unit: tab(s) Repeat number: 4 cefdinir 300 mg oral capsule (2 sources) Cephalosporin Antibacterial Start: 06-03-2025 take 1 capsule by mouth every twelve hours cefdinir 300 mg Cap = 1 cap(s), Oral, q12hr, Refills(s) 0 Start Date: 06/03/25 Status: Ordered Repeat number: 1 cephalexin 500 mg oral capsule (6 sources) Cephalosporin Antibacterial Start: 08-25-2024 End: 08-30-2024 take 1 capsule by mouth three times daily Keflex 500 mg Cap 500 mg = 1 cap(s), Oral, TID, X 5 day(s), # 15 cap(s), Refills(s) 0, Pharmacy: [facility] #[id number], 170, cm, 08/24/24 23:22:00 EST, Height/Length Dosing, 101, kg, 08/24/24 23:22:00 EST, Weight Dosing Start Date: 08/25/24 Stop Date: 08/30/24 Status: Ordered Start: 03-04-2024 End: 03-11-2024 take 1 capsule by mouth every twelve hours Keflex 500 mg Cap 500 mg = 1 cap(s), Oral, q12hr, X 7 day(s), # 14 cap(s), Refills(s) 0, Pharmacy: [facility] #[id number], 170, cm, 03/04/24 12:01:00 EDT, Height/Length Dosing, 92, kg, 03/04/24 12:01:00 EDT, Weight Dosing Start Date: 03/04/24 Stop Date: 03/11/24 Status: Ordered Start: 12-23-2023 End: 12-28-2023 take 1 capsule by mouth four times daily Keflex 500 mg Cap 500 mg = 1 cap(s), Oral, QID, X 5 day(s), # 20 cap(s), Refills(s) 0, Pharmacy: [facility] #[id number], 170, cm, 12/23/23 11:37:00 EDT, Height/Length Dosing, 92, kg, 12/23/23 11:37:00 EDT, Weight Dosing Start Date: 12/23/23 Stop Date: 12/28/23 Status: Ordered Start: 12-12-2023 End: 12-19-2023 take 1 capsule by mouth every six hours Keflex 500 mg Cap 500 mg = 1 cap(s), Oral, q6hr, X 7 day(s), # 28 cap(s), Refills(s) 0, Pharmacy: [facility] #[id number], 170, cm, 12/12/23 12:49:00 EDT, Height/Length Dosing, 92, kg, 12/12/23 12:49:00 EDT, Weight Dosing Start Date: 12/12/23 Stop Date: 12/19/23 Status: Ordered cholecalciferol 1.25 mg oral capsule (20 sources) Vitamin D Start: 08-30-2024 cholecalcifero l 50,000 intl units oral capsule 1,250 mcg = 1 cap(s), Oral, q7day, # 12 cap(s), Refills(s) 1, Pharmacy: [facility] #[id number], 170, cm, 08/24/24 23:22:00 EST, Height/Length Dosing, 101, kg, 08/24/24 23:22:00 EST, Weight Dosing Start Date: 08/30/24 Status: Ordered Quantity: 12.0 Unit: cap(s) Repeat number: 2 Indications: Vitamin D deficiency, unspecified; Start: 08-30-2024 cholecalcifero l (Vitamin D-3) 1.25 MG (14638 UT) capsule Take 1,250 mcg by mouth 08/30/2024 Active ciclopirox 80 mg/ml topical solution (20 sources) Start: 08-15-2024 Ciclodan 8% topical solution 1 anand, Topical, Daily, 6.6 mL, Refill(s) 3, Apply to great toe after shower , file nail, daily to affected area, [facility] #[id number], 170, cm, 08/15/24 13:38:00 EST, Height/Length Dosing, 98.9, kg, 08/15/24 13:38:00 EST, Weight Dosing Start Date: 08/15/24 Status: Ordered Quantity: 6.6 Unit: mL Repeat number: 4 Indications: Tinea unguium; cyclobenzaprine hydrochloride 10 mg oral tablet (14 sources) Muscle Relaxant Start: 10-14-2024 take 1 tablet by mouth three times daily as needed for muscle spasms cyclobenzaprine 10 mg Tab 10 mg = 1 tab(s), Oral, TID, PRN for spasm, # 20 tab(s), Refills(s) 0, Pharmacy: [facility] #[id number], 170, cm, 10/14/24 12:06:00 EST, Height/Length Dosing, 99.2, kg, 10/14/24 12:06:00 EST, Weight Dosing Start Date: 10/14/24 Status: Ordered Quantity: 20.0 Unit: tab(s) Repeat number: 1 dextromethorphan hydrobromide 3 mg/ml / promethazine hydrochloride 1.25 mg/ml oral solution (2 sources) Phenothiazine, Uncompetitive C-olahbm-K-aspartate Receptor Antagonist, Sigma-1 Agonist Start: 12-04-2024 End: 12-09-2024 take 5 mL by mouth every six hours for cough dextromethorphan-pr omethazine 15 mg-6.25 mg/5 mL Oral Syrup 5 mL 5 mL, Oral, q6hr for cough for 5 day(s), 200 mL, Refill(s) 0, [facility] #[id number], 170, cm, 12/04/24 17:58:00 EDT, Height/Length Dosing, 100.6, kg, 12/04/24 17:58:00 EDT, Weight Dosing Start Date: 12/04/24 Stop Date: 12/09/24 Status: Ordered diclofenac sodium 0.01 mg/mg topical gel (13 sources) Nonsteroidal Anti-inflammatory Drug Start: 10-24-2024 Voltaren Gel 1% Gel 1 anand, Topical, QID for pain, 100 gram, Refill(s) 0, [facility] #[id number], 170, cm, 10/24/24 13:29:00 EST, Height/Length Dosing, 100.6, kg, 10/24/24 13:29:00 EST, Weight Dosing Start Date: 10/24/24 Status: Ordered Quantity: 100.0 Unit: g Repeat number: 1 dicyclomine hydrochloride 10 mg oral capsule (5 sources) Anticholinergic Start: 05-01-2025 take 1 capsule by mouth four times daily Bentyl 10 mg Cap = 1 cap(s), Oral, QID, Refills(s) 0 Start Date: 05/01/25 Status: Ordered Repeat number: 1 Start: 04-01-2025 End: 04-08-2025 take 1 capsule by mouth four times daily Bentyl 10 mg Cap 10 mg = 1 cap(s), Oral, QID, X 7 day(s), # 28 cap(s), Refills(s) 0, Pharmacy: [facility] #[id number], 170.2, cm, 04/01/25 18:15:00 EDT, Height/Length Dosing, 96, kg, 04/01/25 18:15:00 EDT, Weight Dosing Start Date: 04/01/25 Stop Date: 04/08/25 Status: Ordered Quantity: 28.0 Unit: cap(s) Repeat number: 1 doxycycline hyclate 100 mg oral capsule (1 source) Tetracycline-class Drug Start: 12-06-2024 End: 12-11-2024 take 1 capsule by mouth twice daily doxycycline hyclate 100 mg Cap 100 mg = 1 cap(s), Oral, BID, X 5 day(s), # 10 cap(s), Refills(s) 0, Pharmacy: [facility] #[id number], 170, cm, 12/06/24 10:33:00 EDT, Height/Length Dosing, 100.6, kg, 12/06/24 10:33:00 EDT, Weight Dosing Start Date: 12/06/24 Stop Date: 12/11/24 Status: Ordered escitalopram 10 mg oral tablet (20 sources) Serotonin Reuptake Inhibitor Start: 06-03-2025 take 1 tablet by mouth once daily escitalopram 10 mg Tab 10 mg = 1 tab(s), Oral, Daily, # 30 tab(s), Refills(s) 1, Pharmacy: [facility] #[id number], 167, cm, 06/03/25 17:09:00 EDT, Height/Length Dosing, 97.3, kg, 06/03/25 17:09:00 EDT, Weight Dosing Start Date: 06/03/25 Status: Ordered Quantity: 30.0 Unit: tab(s) Repeat number: 2 Indications: Generalized anxiety disorder; Start: 08-03-2018 take 1 tablet by queenie th once daily escitalopram 10 mg Tab 10 mg = 1 tab(s), Oral, Daily, # 90 tab(s), Refills(s) 3, Pharmacy: [facility] #[id number], 170, cm, 08/15/24 13:38:00 EST, Height/Length Dosing, 98.9, kg, 08/15/24 13:38:00 EST, Weight Dosing Start Date: 08/15/24 Status: Ordered Quantity: 90.0 Unit: tab(s) Repeat number: 4 Indications: Generalized anxiety disorder; Comment on above: Take 1 tablet by queenie once daily. ferrous sulfate 325 mg delayed release oral tablet (20 sources) Start: 08-30-2024 ferrous sulfate 325 (65 Fe) MG EC tablet 08/30/2024 Active Start: 08-15-2024 take 1 tablet by queenie once daily ferrous sulfate 325 mg Tab 325 mg = 1 tab(s), Oral, Daily, # 90 tab(s), Refills(s) 3, Pharmacy: [facility] #[id number], 170, cm, 08/15/24 13:38:00 EST, Height/Length Dosing, 98.9, kg, 08/15/24 13:38:00 EST, Weight Dosing Start Date: 08/15/24 Status: Ordered Quantity: 90.0 Unit: tab(s) Repeat number: 4 Indications: Anemia, unspecified; Start: 12-08-2023 take 1 tablet by [facility] once daily ferrous sulfate 325 mg Tab 325 mg = 1 tab(s), Oral, Daily, # 90 tab(s), Refills(s) 1, Pharmacy: [facility] #[id number], 170, cm, 12/08/23 13:13:00 EDT, Height/Length Dosing, 92.3, kg, 12/08/23 13:13:00 EDT, Weight Dosing Start Date: 12/08/23 Status: Ordered Start: 01-06-2023 take 1 tablet by [facility] once daily ferrous sulfate 325 mg Tab 325 mg = 1 tab(s), Oral, Daily, Refills(s) 0 Start Date: 01/06/23 Status: Ordered Start: 10-12-2022 End: 11-11-2022 take 1 tablet by mouth once daily ferrous sulfate 325 mg oral enteric coated tablet 325 mg = 1 tab(s), Oral, Daily, X 30 day(s), # 30 tab(s), Refills(s) 0, Pharmacy: [facility] #[id number], 168, cm, 10/12/22 15:42:00 EST, Height/Length Dosing, 93, kg, 10/12/22 15:42:00 EST, Weight Dosing Start Date: 10/12/22 Stop Date: 11/11/22 Status: Ordered Start: 11-17-2020 take 1 tablet by queenie th once daily ferrous sulfate 325 mg Tab 325 mg = 1 tab(s), Oral, Daily, # 90 tab(s), Refills(s) 1, [facility]: [facility], 168, cm, 10/24/20 16:25:00 EST, Height/Length Dosing, 91.7, kg, 10/24/20 16:25:00 EST, Weight Dosing Start Date: 11/17/20 Status: Ordered Start: 01-04-2017 take 1 tablet by queenie th once daily ferrous sulfate 325 mg (65 mg iron) EC tablet Take 1 tablet by mouth once daily. 30 tablet 01/04/2017 Active Comment on above: Take 1 tablet by queenie th once daily. hyoscyamine sulfate 0.125 mg oral tablet (5 sources) Start: 1 take 1 tablet by mouth four times daily hyoscyamine 0.125 mg oral Tab 0.125 mg = 1 tab(s), Oral, QID, Refills(s) 0 Start Date: 10/21/20 Status: Ordered ibuprofen 600 mg oral tablet (20 sources) Nonsteroidal Anti-inflammatory Drug Start: 5 take 1 tablet by mouth every eight hours ibuprofen 600 mg Tab 600 mg = 1 tab(s), Oral, q8hr, # 30 tab(s), Refills(s) 0, Pharmacy: [facility] #[id number], 167, cm, 05/25/25 15:56:00 EDT, Height/Length Dosing, 96, kg, 05/25/25 15:56:00 EDT, Weight Dosing Start Date: 05/25/25 Status: Ordered Quantity: 30.0 Unit: tab(s) Repeat number: 1 Start: 05-05-2024 End: 10-31-2024 take 1 tablet by mouth every eight hours ibuprofen 600 mg Tab 600 mg = 1 tab(s), Oral, q8hr, # 30 tab(s), Refills(s) 0, Pharmacy: [facility] #[id number], 167, cm, 05/25/25 15:56:00 EDT, Height/Length Dosing, 96, kg, 05/25/25 15:56:00 EDT, Weight Dosing Start Date: 05/25/25 Status: Ordered Quantity: 30.0 Unit: tab(s) Repeat number: 1 ketorolac tromethamine 10 mg oral tablet (5 sources) Nonsteroidal Anti-inflammatory Drug, Cyclooxygenase Inhibitor Start: 03-20-2023 take 1 tablet by mouth every six hours as needed for pain ketorolac 10 mg Tab 10 mg = 1 tab(s), Oral, q6hr, PRN for pain, # 10 tab(s), Refills(s) 0, Pharmacy: [facility] #[id number], 168, cm, 03/20/23 10:44:00 EDT, Height/Length Dosing, 92, kg, 03/20/23 10:44:00 EDT, Weight Dosing Start Date: 03/20/23 Status: Ordered lidocaine 0.05 mg/mg medicated patch (20 sources) Antiarrhythmic, Amide Local Anesthetic Start: 06-08-2024 lidocaine Top 5% film Patch 1 patch(es), Topical, Daily, 7 patch(es), Refill(s) 0, apply 12 hours on and 12 hours off daily[id number], 167.6, cm, 06/08/24 19:40:00 EDT, Height/Length Dosing, 98, kg, 06/08/24 19:40:00 EDT, Weight Dosing Start Date: 06/08/24 Status: Ordered Quantity: 7.0 Unit: patch(es) Repeat number: 1 loperamide hydrochloride 2 mg oral tablet (14 sources) Opioid Agonist Start: 01-11-2017 Loperamide HCl (ANTI-DIARRHEA) 2 mg tab Take 1 tablet by mouth as needed. 60 tablet 01/11/2017 Active Start: 12-20-2016 take 1 capsule by mo [facility] every six hours as needed loperamide (IMODIUM) 2 mg cap(s) Take 1 capsule by mouth four times daily as needed. 30 capsule 1 12/20/2016 Active Comment on above: Take 1 capsule by mo [facility] four times daily as needed. [facility] loratadine 10 mg oral tablet (5 sources) Start: take 1 tablet by mouth once daily loratadine 10 mg Tab 10 mg = 1 tab(s), Oral, Daily, # 90 tab(s), Refills(s) 3, Pharmacy: [id number], 170, cm, 12/19/20 10:06:00 EDT, Height/Length Dosing, 92, kg, 12/19/20 10:06:00 EDT, Weight Dosing Start Date: 01/19/21 Status: Ordered meclizine hydrochloride 25 mg chewable tablet (20 sources) Antiemetic Start: take 1 tablet by mouth three times daily as needed for dizziness meclizine 25 mg oral tablet, chewable 25 mg = 1 tab(s), Chewed, TID, PRN for dizziness, # 30 tab(s), Refills(s) 1, Pharmacy: [facility] #[id number], 167, cm, 06/13/25 10:14:00 EDT, Height/Length Dosing, 94.2, kg, 06/13/25 10:17:00 EDT, Weight Dosing Start Date: 06/13/25 Status: Ordered Quantity: 30.0 Unit: tab(s) Repeat number: 2 Indications: Dizziness and giddiness; Start: 09-18-2022 End: 10-22-2022 take 1 tablet by mouth three times daily as needed for dizziness meclizine 25 mg Tab 25 mg = 1 tab(s), Oral, TID, PRN for dizziness, # 15 tab(s), Refills(s) 0, Pharmacy: [facility] #[id number], 170, cm, 12/08/23 13:13:00 EDT, Height/Length Dosing, 92.3, kg, 12/08/23 13:13:00 EDT, Weight Dosing Start Date: 12/08/23 Status: Ordered Comment on above: take 1 tablet by queenie three times a day if needed for dizziness meloxicam 7.5 mg oral tablet (10 sources) Nonsteroidal Anti-inflammatory Drug Start: 08-15-20 take 1 tablet by mouth once daily Mobic 7.5 mg Tab 7.5 mg = 1 tab(s), Oral, Daily, # 90 tab(s), Refills(s) 0, Pharmacy: [facility] #[id number], 170, cm, 08/15/24 13:38:00 EST, Height/Length Dosing, 98.9, kg, 08/15/24 13:38:00 EST, Weight Dosing Start Date: 08/15/24 Status: Ordered methocarbamol 500 mg oral tablet (1 source) Muscle Relaxant Start: 03-12-20 End: 03-15-20 take 1 tablet by mouth three times daily Robaxin 500 mg Tab 500 mg = 1 tab(s), Oral, TID, X 3 day(s), # 9 tab(s), Refills(s) 0, [id number], 167.6, cm, 03/11/24 23:41:00 EDT, Height/Length Dosing, 95.6, kg, 03/11/24 23:37:00 EDT, Weight Dosing Start Date: 03/12/24 Stop Date: 03/15/24 Status: Ordered multivitamin tablet (7 sources) take 1 tablet by mouth once daily multivitamin tablet Take 1 tablet by mouth once daily. Active take 1 tablet by mouth once monique y multivitamin tablet Take 1 tablet by mouth once daily. 0 Active Comment on above: Take 1 tablet by queenie once daily. mupirocin 20 mg/ml topical cream (4 sources) RNA Synthetase Inhibitor Antibacterial Start: 04-15-2025 mupirocin Top 2% Crm 1 anand, Topical, TID, 30 gram, Refill(s) 0, [facility] #[id number], 170.2, cm, 04/15/25 1:09:00 EDT, Height/Length Dosing, 96.5, kg, 04/15/25 1:09:00 EDT, Weight Dosing Start Date: 04/15/25 Status: Ordered Quantity: 30.0 Unit: g Repeat number: 1 naproxen 500 mg oral tablet (20 sources) Nonsteroidal Anti-inflammatory Drug Start: 10-14-2024 take 1 tablet by mouth twice daily Naprosyn 500 mg Tab 500 mg = 1 tab(s), Oral, BID, # 20 tab(s), Refills(s) 0, Pharmacy: [facility] #[id number], 170, cm, 10/14/24 12:06:00 EST, Height/Length Dosing, 99.2, kg, 10/14/24 12:06:00 EST, Weight Dosing Start Date: 10/14/24 Status: Ordered Quantity: 20.0 Unit: tab(s) Repeat number: 1 Start: 12-08-2023 take 1 tablet by queenie th twice daily naproxen 500 mg Tab 500 mg = 1 tab(s), Oral, BID, Take one tab by mouth two times a day, # 14 tab(s), Refills(s) 0, Pharmacy: [facility] #[id number], 170, cm, 03/04/24 12:01:00 EDT, Height/Length Dosing, 92, kg, 03/04/24 12:01:00 EDT, Weight Dosing Start Date: 03/04/24 Status: Ordered Start: 03-22-2023 End: 10-09-2023 take 1 tablet by mouth twice daily as needed for pain Naprosyn 500 mg Tab 500 mg = 1 tab(s), Oral, BID, PRN for pain, # 20 tab(s), Refills(s) 0, Pharmacy: [facility] #[id number], 168, cm, 03/22/23 21:56:00 EDT, Height/Length Dosing, 92.4, kg, 03/22/23 21:56:00 EDT, Weight Dosing Start Date: 03/22/23 Status: Ordered Nebulizer machine with apparatus (7 sources) Start: 12-19-2020 Nebulizer mach ine with apparatus Nebulizer machine with apparatus, Print Requisition, Supply Start Date: 12/19/20 Status: Ordered ondansetron 4 mg disintegrating oral tablet (20 sources) Serotonin-3 Receptor Antagonist Start: 04-01-2025 take 1 tablet by mouth every six hours as needed for nausea ondansetron 4 mg Dis Tab 4 mg = 1 tab(s), Oral, q6hr, PRN Nausea/Vomiting, # 12 tab(s), Refills(s) 0, Pharmacy: [facility] #[id number], 170.2, cm, 04/01/25 18:15:00 EDT, Height/Length Dosing, 96, kg, 04/01/25 18:15:00 EDT, Weight Dosing Start Date: 04/01/25 Status: Ordered Quantity: 12.0 Unit: tab(s) Repeat number: 1 Start: 03-04-2024 take 1 tablet by queenie th every six hours as needed for nausea Zofran 4 mg Tab 4 mg = 1 tab(s), Oral, q6hr, PRN Nausea, Take one tab by mouth every six hours as needed for nausea, # 10 tab(s), Refills(s) 0, Pharmacy: [facility] #[id number], 170, cm, 03/04/24 12:01:00 EDT, Height/Length Dosing, 92, kg, 03/04/24 12:01:00 EDT, Weight Dosing Start Date: 03/04/24 Status: Ordered Start: 12-13-2016 take 1 tablet by queenie th every eight hours as needed ondansetron (ZOFRAN, HYDROCHLORIDE,) 8 mg tablet Take 1 tablet by mouth every 8 hours as needed for Nausea/Vomiting. 30 tablet 2 12/13/2016 Active Comment on above: Take 1 tablet by queenie th every 8 hours as needed for Nausea/Vomiting. One A Day Women's Complete oral tablet (20 sources) Start: 12-08-2023 One A Day Women's Complete oral tablet 1 tab(s), Oral, Daily, 90 tab(s), Refill(s) 0, [facility] #[id number], 170, cm, 12/08/23 13:13:00 EDT, Height/Length Dosing, 92.3, kg, 12/08/23 13:13:00 EDT, Weight Dosing Start Date: 12/08/23 Status: Ordered Quantity: 90.0 Unit: tab(s) Repeat number: 1 Indications: Encounter for general adult medical examination without abnormal findings; Start: 12-08-2023 One A Day Wome n's Complete oral tablet 1 tab(s), Oral, Daily, 90 tab(s), Refill(s) 0, [facility] #[id number], 170, cm, 12/08/23 13:13:00 EDT, Height/Length Dosing, 92.3, kg, 12/08/23 13:13:00 EDT, Weight Dosing Start Date: 12/08/23 Status: Ordered Quantity: 90.0 Unit: tab(s) Repeat number: 1 Indication: Encounter for general adult medical examination without abnormal findings Start: 12-08-2023 One A Day Wome n's Complete oral tablet 1 tab(s), Oral, Daily, 90 tab(s), Refill(s) 0, [facility] #[id number], 170, cm, 12/08/23 13:13:00 EDT, Height/Length Dosing, 92.3, kg, 12/08/23 13:13:00 EDT, Weight Dosing Start Date: 12/08/23 Status: Ordered 24 hr oxybutynin chloride 5 mg extended release oral tablet (20 sources) Cholinergic Muscarinic Antagonist Start: 01-04-2024 take 1 tablet by mouth once daily oxybutynin 5 mg ER Tab 5 mg = 1 tab(s), Oral, Daily, # 30 tab(s), Refills(s) 0, Pharmacy: [facility] #[id number], 170, cm, 01/04/24 10:11:00 EDT, Height/Length Dosing, 90.6, kg, 01/04/24 10:11:00 EDT, Weight Dosing Start Date: 01/04/24 Status: Ordered Start: 12-25-2023 take 1 tablet by queenie th once daily oxybutynin 5 mg ER Tab 5 mg = 1 tab(s), Oral, Daily, # 30 tab(s), Refills(s) 0, Pharmacy: [facility] #[id number], 170, cm, 12/25/23 19:10:00 EDT, Height/Length Dosing, 92, kg, 12/25/23 19:10:00 EDT, Weight Dosing Start Date: 12/25/23 Status: Ordered take 1 tablet by queenie th once daily oxybutynin ER (DITROPAN XL) 10 mg 24 hr tablet Take 10 mg by mouth once daily. Active Comment on above: Take 10 mg by mouth once daily. pantoprazole 20 mg delayed release oral tablet (20 sources) Proton Pump Inhibitor Start: take 1 tablet by mouth once daily Pantoprazole [address] Tab 20 mg = 1 tab(s), Oral, Daily, # 90 tab(s), Refills(s) 4, Pharmacy: [facility] #[id number], 167, cm, 06/03/25 17:09:00 EDT, Height/Length Dosing, 97.3, kg, 06/03/25 17:09:00 EDT, Weight Dosing Start Date: 06/03/25 Status: Ordered Quantity: 90.0 Unit: tab(s) Repeat number: 5 Indications: Gastro-esophageal reflux disease without esophagitis; Start: 08-15-2024 take 1 tablet by queenie th once daily Pantoprazole [address] Tab 20 mg = 1 tab(s), Oral, Daily, # 90 tab(s), Refills(s) 4, Pharmacy: [facility] #[id number], 170, cm, 08/15/24 13:38:00 EST, Height/Length Dosing, 98.9, kg, 08/15/24 13:38:00 EST, Weight Dosing Start Date: 08/15/24 Status: Ordered Quantity: 90.0 Unit: tab(s) Repeat number: 5 Indications: Gastro-esophageal reflux disease without esophagitis; Start: 12-08-2023 take 1 tablet by queenie once daily Pantoprazole [address] Tab 20 mg = 1 tab(s), Oral, Daily, # 90 tab(s), Refills(s) 4, Pharmacy: [facility] #[id number], 170, cm, 12/08/23 13:13:00 EDT, Height/Length Dosing, 92.3, kg, 12/08/23 13:13:00 EDT, Weight Dosing Start Date: 12/08/23 Status: Ordered Start: 10-15-2022 take 1 tablet by queenie once daily Pantoprazole [address] Tab 20 mg = 1 tab(s), Oral, Daily, # 90 tab(s), Refills(s) 4, Pharmacy: [facility] #[id number], 168, cm, 10/15/22 11:22:00 EST, Height/Length Dosing, 87.4, kg, 10/15/22 11:22:00 EST, Weight Dosing Start Date: 10/15/22 Status: Ordered Start: 01-04-2017 take 1 tablet by queenie once daily pantoprazole DR (PROTONIX) 40 mg tablet Take 1 tablet by mouth once daily. 30 tablet 01/04/2017 Active Comment on above: Take 1 tablet by queenie once daily. phenazopyridine hydrochloride 100 mg oral tablet (7 sources) Start: take 1 tablet by mouth every eight hours as needed phenazopyridine (PYRIDIUM, GERIDIUM) 100 mg tablet Take 1 tablet by mouth three times daily as needed. 30 tablet 01/18/2017 Active Comment on above: Take 1 tablet by [facility] three times daily as needed. polyethylene glycol 3350 48327 mg powder for oral solution (6 sources) Osmotic Laxative Start: polyethylene glycol 3350 Oral Pwdr for Recon 17 gram, Oral, Daily, dissolve in water before taking, # 255 gram, Refills(s) 0 Start Date: 04/09/24 Status: Ordered polymyxin b 19160 unt/ml / trimethoprim 1 mg/ml ophthalmic solution (1 source) Dihydrofolate Reductase Inhibitor Antibacterial, Polymyxin-class Antibacterial Start: End: Polytrim 10 mL Soln-Opth 1 drop(s), OPTH, q3hr for 7 day(s), 10 mL, Refill(s) 0, [facility] #[id number], 170, cm, 11/26/23 17:28:00 EST, Height/Length Dosing, 91.8, kg, 11/26/23 17:28:00 EST, Weight Dosing Start Date: 11/26/23 Stop Date: 12/03/23 Status: Ordered predniSONE 50 mg oral tablet (20 sources) Start: take 1 tablet by mouth once daily predniSONE 50 mg Tab = 1 tab(s), Oral, Daily, Refills(s) 0 Start Date: 06/03/25 Status: Ordered Repeat number: 1 Start: 12-06-2024 End: 12-11-2024 take 1 tablet by mouth once daily predniSONE 50 mg Tab 50 mg = 1 tab(s), Oral, Daily, X 5 day(s), # 5 tab(s), Refills(s) 0, Pharmacy: [facility] #[id number], 170, cm, 12/06/24 10:33:00 EDT, Height/Length Dosing, 100.6, kg, 12/06/24 10:33:00 EDT, Weight Dosing Start Date: 12/06/24 Stop Date: 12/11/24 Status: Ordered Start: 10-10-2024 take 5 tablets by mo [facility] once daily, then take 4 tablets by mouth once daily, then take 3 tablets by mouth once daily, then take 2 tablets by mouth once daily, then take 1 tablet by mouth once daily predniSONE (Deltasone) 10 MG tablet Indications: Low back pain, unspecified back pain laterality, unspecified chronicity, unspecified whether sciatica present Take 5 tabs p.o. daily x3 days Take 4 tabs p.o. daily x3 days Take 3 tabs p.o. daily x3 days Take 2 tabs p.o. daily x3 days Take 1 tab p.o. daily x3 days 45 tablet 10/10/2024 Active Start: 08-15-2024 predniSONE 10 mg Tab = 1 -, Oral, As Directed, Take 3 tabs by mouth daily x5 days, then 2 tabs daily x5 days, then 1 tab daily x5 days., # 30 tab(s), Refills(s) 0, Pharmacy: [facility] #[id number], 170, cm, 08/15/24 13:38:00 EST, Height/Length Dosing, 98.9, kg, 08/15/24 13:38:00 EST, Weight Dosing Start Date: 08/15/24 Status: Ordered Quantity: 30.0 Unit: tab(s) Repeat number: 1 Start: 06-08-2024 take 1 tablet by queenie once daily predniSONE 10 mg Tab 10 mg = 1 tab(s), Oral, As Directed, Take 3 tabs by mouth daily x3 days, then 2 tabs daily x3 days, then 1 tab daily x3 days., # 18 tab(s), Refills(s) 0, Pharmacy: [facility] #[id number], 167.6, cm, 06/08/24 19:40:00 EDT, Height/Length Dosing, 98, kg, 06/08/24 19:40:00 EDT, Weight Dosing Start Date: 06/08/24 Status: Ordered Start: 06-15-2022 End: 06-24-2022 take 3 tablets by mouth once daily, then take 2 tablets by mouth once daily, then take 1 tablet by mouth once daily predniSONE 20 mg Tab See Instructions, Take 3 tabs by mouth daily x 3 days, then take 2 tabs by mouth daily x 3 days, then take 1 tab by mouth daily x 3 days., # 18 tab(s), Refills(s) 0, Pharmacy: [facility] #[id number], 170, cm, 06/15/22 12:13:00 EDT, Height/Length D... Start Date: 06/15/22 Stop Date: 06/24/22 Status: Ordered prochlorperazine 10 mg oral tablet (7 sources) Phenothiazine Start: 06-19-2018 take 1 tablet by mouth every six hours as needed prochlorperazine (COMPAZINE) 10 mg tablet TAKE 1 TABLET BY MOUTH EVERY 6 HOURS NEEDED 30 tablet 06/19/2018 Active Comment on above: TAKE 1 TABLET BY QUEENIE TH EVERY 6 HOURS NEEDED promethazine hydrochloride 25 mg oral tablet (13 sources) Phenothiazine Start: 04-01-2025 take 1 tablet by mouth every six hours as needed for nausea promethazine 25 mg Tab 25 mg = 1 tab(s), Oral, q6hr, PRN as needed for nausea/vomiting, # 10 tab(s), Refills(s) 0, Pharmacy: [facility] #[id number], 170.2, cm, 04/01/25 18:15:00 EDT, Height/Length Dosing, 96, kg, 04/01/25 18:15:00 EDT, Weight Dosing Start Date: 04/01/25 Status: Ordered Quantity: 10.0 Unit: tab(s) Repeat number: 1 Start: 06-03-2024 take 1 tablet by queenie th every six hours as needed for nausea promethazine 25 mg Tab 25 mg = 1 tab(s), Oral, q6hr, PRN as needed for nausea/vomiting, # 12 tab(s), Refills(s) 0, Pharmacy: [facility] #[id number], 170, cm, 06/03/24 12:11:00 EDT, Height/Length Dosing, 98.3, kg, 06/03/24 12:11:00 EDT, Weight Dosing Start Date: 06/03/24 Status: Ordered Start: 10-13-2021 take 5 mL by mouth e very six hours for cough Promethazine DM oral syrup 5 mL, Oral, q6hr for cough, 120 mL, Refill(s) 0, [facility] #[id number], 168, cm, 10/13/21 10:51:00 EST, Height/Length Dosing, 88, kg, 10/13/21 10:51:00 EST, Weight Dosing Start Date: 10/13/21 Status: Ordered psyllium 3400 mg powder for oral suspension (12 sources) Start: 01-04-2024 Metamucil Unflavored Smooth Texture Sugar Free 3.4 g/5.4 g oral powder 3.4 gram, Oral, Daily, daily- stop 2-3 days if diarrhea occurs, # 450 gram, Refills(s) 1, Pharmacy: [facility] #[id number], 170, cm, 01/04/24 10:11:00 EDT, Height/Length Dosing, 90.6, kg, 01/04/24 10:11:00 EDT, Weight Dosing Start Date: 01/04/24 Status: Ordered raNITIdine 150 mg oral tablet (7 sources) Histamine-2 Receptor Antagonist take 1 tablet by mouth twice daily ranitidine (ZANTAC) 150 mg tablet Take 150 mg by mouth twice daily. Active Comment on above: Take 150 mg by mouth twice daily. sulfamethoxazole 800 mg / trimethoprim 160 mg oral tablet (13 sources) Dihydrofolate Reductase Inhibitor Antibacterial, Sulfonamide Antimicrobial Start: 03-12-2024 Bactrim D.S. 800 mg-160 mg Tab 1 tab(s), Oral, BID, 20 tab(s), Refill(s) 0, [facility] #[id number], 167.6, cm, 03/11/24 23:41:00 EDT, Height/Length Dosing, 95.6, kg, 03/11/24 23:37:00 EDT, Weight Dosing Start Date: 03/12/24 Status: Ordered Start: 04-21-2021 Bactrim D.S. 8 00 mg-160 mg Tab 1 tab(s), Oral, BID, 20 tab(s), Refill(s) 0 Start Date: 04/21/21 Status: Ordered tamsulosin hydrochloride 0.4 mg oral capsule (20 sources) alpha-Adrenergic Sasha Start: 08-25-2024 take 1 capsule by mouth once daily Flomax 0.4 mg Cap 0.4 mg = 1 cap(s), Oral, Daily, # 10 cap(s), Refills(s) 0, Pharmacy: [facility] #[id number], 170, cm, 08/24/24 23:22:00 EST, Height/Length Dosing, 101, kg, 08/24/24 23:22:00 EST, Weight Dosing Start Date: 08/25/24 Status: Ordered Quantity: 10.0 Unit: cap(s) Repeat number: 1 Start: 01-04-2024 take 1 capsule by [facility] daily tamsulosin 0.4 mg Cap 0.4 mg = 1 cap(s), Oral, Daily, # 10 cap(s), Refills(s) 0, Pharmacy: [facility] #[id number], 170, cm, 03/09/24 13:27:00 EDT, Height/Length Dosing, 98.3, kg, 03/09/24 13:27:00 EDT, Weight Dosing Start Date: 03/09/24 Status: Ordered Start: 12-23-2023 take 1 capsule by [facility] once daily Flomax 0.4 mg Cap 0.4 mg = 1 cap(s), Oral, Daily, # 10 cap(s), Refills(s) 0, Pharmacy: [facility] #[id number], 170, cm, 12/23/23 11:37:00 EDT, Height/Length Dosing, 92, kg, 12/23/23 11:37:00 EDT, Weight Dosing Start Date: 12/23/23 Status: Ordered traMADol hydrochloride 50 mg oral tablet (1 source) Opioid Agonist Start: 12-25-2023 End: 12-28-2023 take 1 tablet by mouth every six hours as needed for pain traMADOL 50 mg Tab 50 mg = 1 tab(s), Oral, q6hr, PRN for pain, X 3 day(s), # 12 tab(s), Refills(s) 0, Pharmacy: [facility] #[id number], 170, cm, 12/25/23 19:10:00 EDT, Height/Length Dosing, 92, kg, 12/25/23 19:10:00 EDT, Weight Dosing Start Date: 12/25/23 Stop Date: 12/28/23 Status: Ordered vitamin b12 1 mg oral tablet (6 sources) Vitamin B12 Start: 09-07-2024 take 1 tablet by mouth once daily cyanocobalamin (Vitamin B-12) 1000 MCG tablet Take 1,000 mcg by mouth Daily 09/07/2024 Active Vitamin B12 1000 mcg Tab (19 sources) Start: 09-07-2024 take 1 tablet by mouth once daily Vitamin B12 1000 mcg Tab 1,000 mcg = 1 tab(s), Oral, Daily, # 90 tab(s), Refills(s) 0, [id number], 170, cm, 09/07/24 11:19:00 EST, Height/Length Dosing, 99.2, kg, 09/07/24 11:19:00 EST, Weight Dosing Start Date: 09/07/24 Status: Ordered Quantity: 90.0 Unit: tab(s) Repeat number: 1 Indications: Deficiency of other specified B group vitamins; Start: 09-07-2024 take 1 tablet by queenie th once daily Vitamin B12 1000 mcg Tab 1,000 mcg = 1 tab(s), Oral, Daily, # 90 tab(s), Refills(s) 0, [id number], 170, cm, 09/07/24 11:19:00 EST, Height/Length Dosing, 99.2, kg, 09/07/24 11:19:00 EST, Weight Dosing Start Date: 09/07/24 Status: Ordered Quantity: 90.0 Unit: tab(s) Repeat number: 1 Indication: Deficiency of other specified B group vitamins Start: 09-07-2024 take 1 tablet by qeuenie th once daily Vitamin B12 1000 mcg Tab 1,000 mcg = 1 tab(s), Oral, Daily, # 90 tab(s), Refills(s) 0, [facility][id number], 170, cm, 09/07/24 11:19:00 EST, Height/Length Dosing, 99.2, kg, 09/07/24 11:19:00 EST, Weight Dosing Start Date: 09/07/24 Status: Ordered Zofran ODT 4 mg Tab-Dis (20 sources) Start: 08-25-2024 take 1 tablet by mouth every six hours Zofran ODT 4 mg Tab-Dis 4 mg = 1 tab(s), Oral, q6hr, # 12 tab(s), Refills(s) 0, [id number], 170, cm, 08/24/24 23:22:00 EST, Height/Length Dosing, 101, kg, 08/24/24 23:22:00 EST, Weight Dosing Start Date: 08/25/24 Status: Ordered Quantity: 12.0 Unit: tab(s) Repeat number: 1 Start: 08-25-2024 take 1 tablet by queenie th every six hours Zofran ODT 4 mg Tab-Dis 4 mg = 1 tab(s), Oral, q6hr, # 12 tab(s), Refills(s) 0, Pharmacy: [facility] #[id number], 170, cm, 08/24/24 23:22:00 EST, Height/Length Dosing, 101, kg, 08/24/24 23:22:00 EST, Weight Dosing Start Date: 08/25/24 Status: Ordered Start: 01-04-2024 take 1 tablet by queenie th every eight hours as needed for nausea Zofran ODT 4 mg Tab-Dis 4 mg = 1 tab(s), Oral, q8hr, PRN Nausea/Vomiting, # 12 tab(s), Refills(s) 0, Pharmacy: [facility] #[id number], 170, cm, 01/04/24 10:11:00 EDT, Height/Length Dosing, 90.6, kg, 01/04/24 10:11:00 EDT, Weight Dosing Start Date: 01/04/24 Status: Ordered Start: 12-25-2023 take 1 tablet by queenie th every eight hours as needed for nausea Zofran ODT 4 mg Tab-Dis 4 mg = 1 tab(s), Oral, q8hr, PRN Nausea/Vomiting, # 12 tab(s), Refills(s) 0, Pharmacy: [facility] #[id number], 170, cm, 12/25/23 19:10:00 EDT, Height/Length Dosing, 92, kg, 12/25/23 19:10:00 EDT, Weight Dosing Start Date: 12/25/23 Status: Ordered Start: 12-12-2023 take 1 tablet by queenie th every eight hours as needed for nausea Zofran ODT 4 mg Tab-Dis 4 mg = 1 tab(s), Oral, q8hr, PRN Nausea/Vomiting, # 12 tab(s), Refills(s) 0, Pharmacy: [facility] #[id number], 170, cm, 12/12/23 12:49:00 EDT, Height/Length Dosing, 92, kg, 12/12/23 12:49:00 EDT, Weight Dosing Start Date: 12/12/23 Status: Ordered Start: 11-21-2021 take 1 tablet by queenie th every eight hours Zofran ODT 4 mg Tab-Dis 4 mg = 1 tab(s), Oral, q8hr, # 10 tab(s), Refills(s) 0, Pharmacy: [facility] #37, 168, cm, 11/20/21 16:13:00 EST, Height/Length Dosing, 88, kg, 11/20/21 16:13:00 EST, Weight Dosing Start Date: 11/21/21 Status: Ordered Completed/Discontinued Medications Medication Drug Class(es) Dates Sig (Normalized) Sig (Original) One A Day Women's Complete (9 sources) Start: 10-12-2022 One A Day Women's Complete Oral, Daily, Refill(s) 0 Start Date: 10/12/22 Status: Ordered potassium chloride 10 meq extended release oral capsule (14 sources) Start: 01-19-2021 take 1 capsule by mouth once daily potassium chloride 10 mEq Cap-ER 10 mEq = 1 cap(s), Oral, Daily, # 90 cap(s), Refills(s) 3, [facility], 170, cm, 12/19/20 10:06:00 EDT, Height/Length Dosing, 92, kg, 12/19/20 10:06:00 EDT, Weight Dosing Start Date: 01/19/21 Status: Ordered Start: 01-04-2017 take 1 tablet by queenie th once daily potassium chloride (K-TAB) 10 mEq tablet Take 1 tablet by mouth once daily. 30 tablet 01/04/2017 Active Comment on above: Take 1 tablet by queenie th once daily. Problems Active Problems Problem Classification Problem Date Documented Da te Episodic/Chronic Abdominal hernia (20 sources) Hernia of abdominal cavity; Translations: [Hiatal hernia] Onset: 5 04-18-2015 Episodic Abdominal pain (20 sources) Abdominal pain; Translations: [Flank pain] Onset: 4 10-21-2020 Episodic Administrative/social admission (3 sources) Patient encounter status; Translations: [Persons encountering health services in other specified circumstances] Onset: 4 Episodic Anxiety disorders (20 sources) Generalized anxiety disorder; Translations: [Generalized anxiety disorder] Onset: 5 01-04-2024 Chronic Asthma (20 sources) Asthma; Translations: [Asthma-chronic obstructive pulmonary disease overlap syndrome] Onset: 7 01-19-2021 Chronic Bacterial infection; unspecified site (2 sources) Infection due to Escherichia coli; Translations: [Unspecified Escherichia coli [E. coli] as the cause of diseases classified elsewhere] Onset: 4 Episodic Calculus of urinary tract (20 sources) History of calculus of kidney; Translations: [Kidney stone] Onset: 4 03-07-2020 Episodic Cancer of cervix (20 sources) Malignant tumor of cervix; Translations: [Overlapping malignant neoplasm of uterine cervix] Onset: 7 12-19-2020 Chronic Cancer of cervix (20 sources) History of malignant neoplasm of cervix; Translations: [Personal history of malignant neoplasm of cervix uteri] 10-21-2020 Episodic Chronic obstructive pulmonary disease and bronchiectasis (5 sources) Asthma-chronic obstructive pulmonary disease overlap syndrome; Translations: [Chronic obstructive pulmonary disease, unspecified] Onset: 7 01-10-2017 Chronic Chronic obstructive pulmonary disease and bronchiectasis (20 sources) Bronchitis 12-18-2019 Episodic Conditions associated with dizziness or vertigo (20 sources) Dizziness and giddiness; Translations: [Dizziness and giddiness] Onset: 3 Episodic Deficiency and other anemia (20 sources) Anemia; Translations: [Anemia, unspecified] Onset: 4 01-19-2021 Episodic Deficiency and other anemia (20 sources) Anemia due to unknown mechanism 12-07-2013 Episodic Deficiency and other anemia (20 sources) Iron deficiency anemia; Translations: [Iron deficiency anemia, unspecified] Onset: 5 08-30-2024 Episodic Diabetes mellitus without complication (20 sources) Prediabetes; Translations: [Prediabetes] Onset: 4 09-07-2024 Episodic Disorders of lipid metabolism (20 sources) Hyperlipidemia; Translations: [Hyperlipidemia, unspecified] Onset: 4 08-30-2024 Chronic E Codes: Natural/environment (1 source) Exposure to other specified factors, subsequent encounter; Translations: [Exposure to potentially harmful entity (event)] Episodic Esophageal disorders (20 sources) Gastroesophageal reflux disease; Translations: [Gastroesophageal reflux disease without esophagitis] Onset: 7 11-17-2015 Chronic Fever of unknown origin (1 source) Fever; Translations: [Fever, unspecified] Onset: 5 Episodic Genitourinary symptoms and ill-defined conditions (20 sources) Increased frequency of urination; Translations: [Nocturia] Onset: 4 03-07-2020 Episodic Headache; including migraine (20 sources) Migraine; Translations: [Migraine, unspecified, not intractable, without status migrainosus] Onset: 4 03-14-2014 Chronic Headache; including migraine (20 sources) Headache; Translations: [Headache, unspecified] Onset: 4 Episodic Heart valve disorders (20 sources) Irregular heart rate 03-28-2018 Episodic Immunizations and screening for infectious disease (18 sources) Infectious disease carrier; Translations: [Exposure to communicable disease] Onset: 8 01-16-2018 Episodic Comment on above: ESBL E coli in urine and cervical swab 01/12/18 Inflammation; infection of eye (except that caused by tuberculosis or sexually transmitteddisease) (1 source) Conjunctivitis; Translations: [Unspecified conjunctivitis] Onset: 4 Episodic Malaise and fatigue (20 sources) Fatigue; Translations: [Other fatigue] Onset: 4 Episodic Mood disorders (20 sources) Major depressive disorder; Translations: [Major depressive disorder, single episode, unspecified] Onset: 2 Chronic Mycoses (20 sources) Onychomycosis due to dermatophyte ; Translations: [Tinea unguium] Onset: 4 Episodic Nausea and vomiting (20 sources) Nausea; Translations: [Nausea] Onset: 4 10-15-2022 Episodic Noninfectious gastroenteritis (2 sources) Noninfectious enteritis; Translations: [Noninfective gastroenteritis and colitis, unspecified] Onset: 5 Episodic Nonspecific chest pain (1 source) Chest pain; Translations: [Chest pain, unspecified] Onset: 4 Episodic Nutritional deficiencies (20 sources) Vitamin D deficiency; Translations: [Vitamin D deficiency, unspecified] Onset: 4 08-30-2024 Chronic Nutritional deficiencies (20 sources) Cobalamin deficiency; Translations: [Vitamin B deficiency] Onset: 4 09-07-2024 Episodic Osteoarthritis (20 sources) Osteoarthritis of hip; Translations: [Unilateral primary osteoarthritis, left hip] Onset: 4 Chronic Other acquired deformities (20 sources) Scoliosis deformity of spine; Translations: [Scoliosis, unspecified] Onset: 4 09-07-2024 Chronic Other connective tissue disease (1 source) Pain in right lower limb; Translations: [Pain in right leg] Onset: 5 Episodic Other connective tissue disease (1 source) Pain in left lower limb; Translations: [Pain in left leg] Onset: 5 Episodic Other diseases of bladder and urethra (20 sources) Urethral stricture 03-07-2020 Episodic Other diseases of kidney and ureters (20 sources) Hydronephrosis due to ureteral obstruction 03-07-2020 Episodic Other fractures (3 sources) Multiple fractures of lumbar spine and/or pelvis; Translations: [Fracture of unspecified parts of lumbosacral spine and pelvis, initial encounter for closed fracture] Onset: 5 Episodic Other fractures (3 sources) Fracture of pelvis; Translations: [Fracture of unspecified parts of lumbosacral spine and pelvis, initial encounter for closed fracture] 06-13-2025 Episodic Other gastrointestinal disorders (8 sources) Diarrhea; Translations: [Diarrhea, unspecified] Onset: 7 01-10-2017 Episodic Other gastrointestinal disorders (2 sources) Constipation, unspecified; Translations: [Constipation, unspecified] Onset: 4 Episodic Other gastrointestinal disorders (20 sources) Constipation 01-04-2024 Episodic Other lower respiratory disease (1 source) Cough; Translations: [Cough, unspecified] Onset: 5 Episodic Other nervous system disorders (1 source) Chronic pain; Translations: [Other chronic pain] Chronic Other nervous system disorders (20 sources) Paresthesia; Translations: [Paresthesia of skin] Onset: 4 Episodic Other non-traumatic joint disorders (1 source) Pain in unspecified knee; Translations: [Pain of joint of knee] Onset: 3 Episodic Other nutritional; endocrine; and metabolic disorders (20 sources) Body mass index 30+ - obesity 12-18-2019 Chronic Other nutritional; endocrine; and metabolic disorders (20 sources) Obesity; Translations: [Other obesity] Onset: 4 12-18-2019 Chronic Other nutritional; endocrine; and metabolic disorders (8 sources) Obese class I; Translations: [Body mass index (BMI) 32.0-32.9, adult] Onset: 3 Chronic Other nutritional; endocrine; and metabolic disorders (19 sources) Hypocalcemia 09-07-2024 Chronic Other nutritional; endocrine; and metabolic disorders (1 source) Hypocalcemia; Translations: [Hypocalcemia] Onset: 4 Chronic Other screening for suspected conditions (not mental disorders or infectious disease) (3 sources) Abnormal cytology findings; Translations: [Other abnormal cytological findings on specimens from cervix uteri] Onset: 4 Episodic Other skin disorders (20 sources) Discoloration of skin 10-21-2020 Episodic Other upper respiratory disease (20 sources) Allergic rhinitis 10-13-2022 Chronic Other upper respiratory infections (1 source) Chronic sinusitis; Translations: [Chronic sinusitis, unspecified] Onset: 4 Chronic Other upper respiratory infections (3 sources) Acute upper respiratory infection; Translations: [Acute upper respiratory infection, unspecified] Onset: 2 Episodic Otitis media and related conditions (1 source) Otitis media; Translations: [Otitis media, unspecified, left ear] Onset: 4 Episodic Pancreatic disorders (not diabetes) (1 source) Acute pancreatitis; Translations: [Acute pancreatitis without necrosis or infection, unspecified] Onset: 4 Episodic Pneumonia (except that caused by tuberculosis or sexually transmitted disease) (1 source) Pneumonia; Translations: [Pneumonia, unspecified organism] Onset: 5 Episodic Residual codes; unclassified (20 sources) Menopause present 03-28-2018 Episodic Residual codes; unclassified (1 source) Localized edema; Translations: [Localized edema] Onset: 5 Episodic Screening and history of mental health and substance abuse codes (20 sources) Ex-smoker 03-07-2020 Episodic Sexually transmitted infections (not HIV or hepatitis) (1 source) Human papillomavirus deoxyribonucleic acid test positive, high risk on cervical specimen; Translations: [Cervical high risk human papillomavirus (HPV) DNA test positive] Episodic Skin and subcutaneous tissue infections (20 sources) Onychia of toe 12-08-2023 Episodic Spondylosis; intervertebral disc disorders; other back problems (20 sources) Degeneration of lumbar intervertebral disc; Translations: [Degeneration of lumbosacral intervertebral disc] Onset: 4 06-17-2024 Chronic Spondylosis; intervertebral disc disorders; other back problems (20 sources) Sciatica; Translations: [Sciatica, unspecified side] Onset: 4 Episodic Sprains and strains (3 sources) Injury of adductor muscle and tendon of thigh; Translations: [Strain of adductor muscle, fascia and tendon of left thigh, initial encounter] Onset: 5 Episodic Substance-related disorders (20 sources) Smoker; Translations: [Nicotine dependence, cigarettes, in remission] Onset: 4 03-07-2020 Chronic Comment on above: Added secondary to d ocumentation in Social History. Superficial injury; contusion (2 sources) Contusion of knee; Translations: [Contusion of unspecified knee, initial encounter] Onset: 3 Episodic Unclassified (20 sources) Exposure to 2019 novel coronavirus; Translations: [Contact with and (suspected) exposure to COVID19] Onset: 2 09-17-2020 Unclassified (20 sources) Finding of abdomen 10-21-2020 Unclassified (20 sources) Patient encounter status 10-21-2020 Unclassified (1 source) First encounter by subject 06-13-2025 Urinary tract infections (20 sources) Acute cystitis with hematuria; Translations: [Acute pyelonephritis] Onset: 8 Episodic Viral infection (1 source) Viral disease; Translations: [Other viral agents as the cause of diseases classified elsewhere] Onset: 4 Episodic Past or Other Problems Problem Classification Problem Date Documented Date Episodic/Chronic Acute posthemorrhagic anemia (7 sources) Acute posthemorrhagic anemia; Translations: [Acute posthemorrhagic anemia] Onset: 11-02-2016 11-02-2016 Episodic Unclassified (20 sources) Radiation (physical force) 12-19-2020 Unclassified (1 source) Transportation insecurity; Translations: [Transportation insecurity] Onset: 06-13-2025 Results Test Name Value Interpretation Reference Range Facility Ambulatory Visit Summaryon 0 06-13-2025 Ambulatory Visit Summary Ambulatory Visit Summary JANA CABALLERO :1970 Visit Date:06/13/2025 Ambulatory Visit Instructions Your Diagnosis Adult wellness visit Encounter to establish care with new provider LALO (generalized anxiety disorder) HLD (hyperlipidemia) Gastroesophageal reflux disease Iron deficiency anemia Malignant tumor of cervix Mild recurrent major depression Prediabetes Pelvis fracture Hiatal hernia DDD (degenerative disc disease), lumbosacral Left-sided low back pain with sciatica Scoliosis Recurrent headache Vertigo Smoker Transportation insecurity BMI 33.0-33.9,adult Obesity Your Care Team Attending Physician - Leon Marti Primary Care Physician - Leon Marti This Is Your Medications List APAP/butalbital/caffeine (APAP/butalbital/caffeine 325 mg-50 mg-40 mg Tab) APAP/butalbital/caffeine (APAP/butalbital/caffeine 325 mg-50 mg-40 mg Tab) acetaminophen (acetaminophen 325 mg oral tablet, disintegrating) albuterol (albuterol HFA 90 mcg/inh MDI) calcium carbonate (calcium 500 mg tablets) cholecalciferol (cholecalciferol 50,000 intl units oral capsule) ciclopirox topical (Ciclodan 8% topical solution) cyanocobalamin (Vitamin B12 1000 mcg Tab) diclofenac topical (Voltaren Gel 1% Gel) escitalopram (escitalopram 10 mg Tab) ferrous sulfate (ferrous sulfate 325 mg Tab) ibuprofen (ibuprofen 600 mg Tab) lidocaine topical (lidocaine Top 5% film Patch) meclizine (meclizine 25 mg oral tablet, chewable) multivitamin with minerals (One A Day Women's Complete oral tablet) mupirocin topical (mupirocin Top 2% Crm) naproxen (Naprosyn 500 mg Tab) pantoprazole (Pantoprazole [address] Tab) predniSONE (predniSONE 10 mg Tab) tamsulosin (Flomax 0.4 mg Cap) Procedures Performed Cystoscopy (03/07/2020), :LEEP, exam under anesthesia (10/06/2016), hernia repair (11/25/2015), incisional hernia repair (05/13/2015), (2003), Tubal ligation (2003), Cancer cervix screening - up-to-date, lymph nodes removed from abdomen, T&A, urethra dialation. Discharge Vitals Heart Rate (Peripheral) 66 Blood Pressure 142/88 Height 167 cm Height 66 in Weight 94.2 kg Weight 207.675 lb BMI 33.78 What to do next Scheduled Follow-Up Appointments 2025 9:40 AM EST With: Leon Marti Where: [facility] [address] [place] [address]- You Need to Schedule the Following Appointments Follow Up with Leon Marti, [facility], MED When: In 4 months Comments: follow up Where: [address], [address] [facility] [address] [place] [phone] You Need to Complete the Following CBC w/ Auto Diff, Blood, Routine collect, 06/13/25, Order for future visit, Lab Collect, Adult wellness visit Iron deficiency anemia, Print Label By Order Location Comprehensive Metabolic Panel, Blood, Routine collect, 06/13/25, Order for future visit, Lab Collect, Adult wellness visit, Print Label By Order Location HgbA1c, Blood, Routine collect, 06/13/25, Order for future visit, Lab Collect, Adult wellness visit Prediabetes, Print Label By Order Location Lipid Panel, Blood, Routine collect, 06/13/25, Order for future visit, Lab Collect, Adult wellness visit HLD (hyperlipidemia), Print Label By Order Location Someone Will Contact You Regarding These Appointments [facility], Orthopaedics, 06/13/25 10:37:00 EDT, Pelvis [place] [facility], Neurosurgery, 06/13/25 10:47:00 EDT, DDD (degenerative disc disease), lumbosacral Left-sided low back pain with sciatica Scoliosis Recurrent headache Pelvis fracture Medications What How Much When Why Instructions Changed meclizine (meclizine 25 mg oral tablet, chewable) 1 Tablets Chewed 3 times a day as needed for for dizziness Vertigo Pickup at [email or web address] #[id number] Unchanged acetaminophen (acetaminophen 325 mg oral tablet, disintegrating) 1 Tablets By Mouth Every 4 hours as needed for for pain Unchanged albuterol (albuterol HFA 90 mcg/ inh MDI) 2 Puffs Inhalation Every 4 hours as needed for for wheezing Smoking Unchanged APAP/ butalbital/ caffeine (APAP/ butalbital/ caffeine 325 mg-50 mg-40 mg Tab) 1 Tablets By Mouth Every 4 hours as needed for for headache Unchanged APAP/ butalbital/ caffeine (APAP/ butalbital/ caffeine 325 mg-50 mg-40 mg Tab) 2 Tablets By Mouth Every 6 hours as needed for for headache Unchanged calcium carbonate (calcium 500 mg tablets) 2 Tablets By Mouth 2 times a day Unchanged cholecalciferol (cholecalciferol 50,000 intl units oral capsule) 1 Capsules By Mouth Every 7 days Vitamin D deficiency Unchanged ciclopirox topical (Ciclodan 8% topical solution) 1 Application Topical Every day Onychomycosis Apply to great toe after shower , file nail, daily to affected area Unchanged cyanocobalamin (Vitamin B12 1000 mcg Tab) 1 Tablets By Queenie (more content not included)... Normal [facility] CBC w/ Auto Diffon 5 Basophil Absolute 0.1 E9/L Normal 0.0-0.2 [facility] Comment on above: Performed By: #### 2 [id number] #### [facility] [address] [place] [address] Basophils/100 WBC (Bld) 1.4 % Normal 0.0-2.0 [facility] Comment on above: Performed By: #### 2 [id number] #### [facility] [address] [place] [address] Eos Absolute 0.3 E9/L Normal 0.0-0.5 [facility] Comment on above: Performed By: #### 2 [id number] #### [facility] [address] [place] [address] Eosinophils/100 WBC (Bld) 8.2 % High 0.0-8.0 [facility] Comment on above: Performed By: #### 2 [id number] #### [facility] [address] [place] [address] Erythrocyte distribution width (RBC) [Ratio] 15.2 % High 10.9-14.2 [facility] Comment on above: Performed By: #### 2 [id number] #### [facility] [address] [place] [address] Hematocrit (Bld) [Volume fraction] 34.1 % Normal 34.0-46.0 [facility] Comment on above: Performed By: #### 2 [id number] #### [facility] [address] [place] [address] Hemoglobin (Bld) [Mass/Vol] 11.4 g/dL Low 12.0-16.0 [facility] Comment on above: Performed By: #### 2 [id number] #### [facility] [address] [place] [address] Lymph Absolute 1.4 E9/L Normal 1.0-4.0 [facility] Comment on above: Performed By: #### 2 [id number] #### [facility] [address] [place] [address] Lymphocytes/100 WBC (Bld) 35.1 % Normal 14.0-50.0 [facility] Comment on above: Performed By: #### 2 [id number] #### [facility] [address] [place] [address] MCH (RBC) [Entitic mass] 27.2 pg Normal 27.0-34.0 [facility] Comment on above: Performed By: #### 2 [id number] #### [facility] [address] [place] [address] MCHC (RBC) [Mass/Vol] 33.5 g/dL Normal 31.4-36.0 [facility] Comment on above: Performed By: #### 2 [id number] #### [facility] [address] [place] [address] MCV (RBC) [Entitic vol] 81.4 fL Normal 80.0-100.0 [facility] Comment on above: Performed By: #### 2 [id number] #### [facility] [address] [place] [address] [place] Absolute 0.3 E9/L Normal 0.2-1.0 [facility] Comment on above: Performed By: #### 2 [id number] #### [facility] [address] [place] [address] Monocytes/100 WBC (Bld) 6.4 % Normal 4.0-14.0 [facility] Comment on above: Performed By: #### 2 [id number] #### [facility] [address] [place] [address] Neutro Absolute 2.0 E9/L Normal 2.0-7.5 [facility] Comment on above: Performed By: #### 2 [id number] #### [facility] [address] [place] [address] Neutro Auto 48.9 % Normal 36.0-75.0 [facility] Comment on above: Performed By: #### 2 [id number] #### [facility] [address] [place] [address] Platelet 219.0 E9/L Normal 150.0-500.0 [facility] Comment on above: Performed By: #### 2 [id number] #### [facility] [address] [place] [address] Platelet mean volume (Bld) [Entitic vol] 9.1 fL Normal 6.4-10.8 [facility] Comment on above: Performed By: #### 2 [id number] #### [facility] [address] [place] [address] RBC 4.2 E12/L Low 4.3-5.9 [facility] Comment on above: Performed By: #### 2 [id number] #### [facility] [address] [place] [address] WBC 4.1 E9/L Normal 4.0-11.0 [facility] Comment on above: Performed By: #### 2 [id number] #### [facility] [address] [place] [address] CMPon 06-13-2025 Albumin [Mass/Vol] 4.1 g/dL Normal 3.3-5.0 [facility] Comment on above: Performed By: #### 2 [id number] #### [facility] [address] [place] [address] Albumin/Globulin [Mass ratio] 1.6 {ratio} Normal 1.1-2.2 [facility] Comment on above: Performed By: #### 2 [id number] #### [facility] [address] [place] [address] Alk Phos 82 Int._Unit/L Normal 21-98 [facility] Comment on above: Performed By: #### 2 [id number] #### [facility] [address] [place] [address] ALT 15 Int._Unit/L Normal 6-46 [facility] Comment on above: Performed By: #### 2 [id number] #### [facility] [address] [place] [address] Anion gap [Moles/Vol] 11 mmol/L Normal 6-16 [facility] Comment on above: Performed By: #### 2 [id number] #### [facility] [address] [place] [address] AST 15 Int._Unit/L Normal 5-43 [facility] Comment on above: Performed By: #### 2 [id number] #### [facility] [address] [place] [address] Bili Total 0.4 mg/dL Normal 0.0-1.1 [facility] Comment on above: Performed By: #### 2 [id number] #### [facility] [address] [place] [address] BUN/Creat Ratio 23 No Units High 10-20 [facility] Comment on above: Performed By: #### 2 [id number] #### [facility] [address] [place] [address] Calcium [Mass/Vol] 9.1 mg/dL Normal 8.9-11.1 [facility] Comment on above: Performed By: #### 2 [id number] #### [facility] [address] [place] [address] Chloride [Moles/Vol] 106 mmol/L Normal 101-111 [facility] Comment on above: Performed By: #### 2 [id number] #### [facility] [address] [place] [address] CO2 [Moles/Vol] 27 mmol/L Normal 21-31 [facility] Comment on above: Performed By: #### 2 [id number] #### [facility] [address] [place] [address] Creatinine [Mass/Vol] 0.7 mg/dL Normal 0.5-1.3 [facility] Comment on above: Performed By: #### 2 [id number] #### [facility] [address] [place] [address] Globulin (S) [Mass/Vol] 2.5 g/dL Normal 1.4-4.0 [facility] Comment on above: Performed By: #### 2 [id number] #### [facility] [address] [place] [address] Glucose [Mass/Vol] 96 mg/dL Normal 55-199 [facility] Comment on above: Performed By: #### 2 [id number] #### [facility] [address] [place] [address] Potassium [Moles/Vol] 3.7 mmol/L Normal 3.5-5.3 [facility] Comment on above: Performed By: #### 2 [id number] #### [facility] [address] [place] [address] Protein [Mass/Vol] 6.6 g/dL Normal 6.0-7.8 [facility] Comment on above: Performed By: #### 2 [id number] #### [facility] [address] [place] [address] Sodium [Moles/Vol] 140 mmol/L Normal 135-145 [facility] Comment on above: Performed By: #### 2 [id number] #### [facility] [address] [place] [address] Urea nitrogen [Mass/Vol] 16 mg/dL Normal 5-21 [facility] Comment on above: Performed By: #### 2 [id number] #### [facility] [address] [place] [address] Family Medicine Office/Clini c Noteon 06-13-2025 Family Medicine Office/Clinic Note Family Medicine Office/Clinic Note Chief Complaint Est. care HPI Staff Establish Care: History: Any previous diagnosis: History of seeing any specialist(s): When was your last doctor visit: Last provider: Any recent labs: 03/2025 Health Maintenance UTD: Colonoscopy: Mammogram: 09/2024 Pelvic/pap: LALO: 6 and follows with a counselor PHQ9: 0 Acute: Current issues/complaints: needs referral to bone Dr. Dr. Gilberto Powell History of Present Illness Jana is a 54 year old female presenting to establish care. She needs referral to bone doctor in [place]. She states has a broken pelvis and has not healed. She has multiple issues with her spine and hypocalcemia. She notes has history of hiatal hernia with previous surgeries. She would like to get back to General surgery for further evaluation. She has an upcoming appointment with [facility] oncology to follow-up from her cervical cancer. She denies any recent issues overall except for her chronic lower back pain. She states she has not seen any neurosurgeon for this in the past. She states she previously had issues with getting a ride to appointments and ended up no showing multiple appointments and that she was black listed from an organization but she cannot remember which organization it was. She denies any loss of bowel or bladder control. She states that she does have chronic headaches and would like to investigate this further. She is worried as her dad had a spinal cord lesion. She denies any chest pain, but occasionally has a skipped heartbeat. Social hx: diet: drinks a lot of coffee. 2 meals per day, with snacks. does not follow specific plan. she avoids sugar. occupation: does not work due to spinal issues. exercise: walks and stays active alcohol use: none illicit drug use: none smoking status: 1 cigarette very rarely x 44 years Health Maintenance: Routine labs: due will order Pap (21-64yo): Cervical cancer - 2015 -[facility] colonoscopy/cologuard (45-75yo): she had colonoscopy at [facility] 2014. Mammogram (qyr 40-54, q2yrs 55-85): -2023 normal repeat in 1 year. Wellness: due will complete today. Specialists: Dentist: does not go CLINICAL FIELD SPECIALIST: Has not followed up in a few years and has appointment with [facility] in [place]. Psych/counseling: [facility] services - for counseling. PCP prescribe lexapro 10 mg daily. Review of Systems PHQ Score Initial Depression Screen Score: 2 SCORE Physical Exam Vitals & Measurements HR: 66(Peripheral) BP: 142/88 SpO2: 97% HT: 167 cm HT: 66 in WT: 94.2 kg WT: 207.675 lb BMI: 33.78 General: Well developed, well nourished, in no acute distress Head: Normocephalic/atraumatic Eyes: Pupils equal, round, and reactive to light. Conjunctivae and sclerae normal, and extraocular movements intact Ears: No deformity or lesion of external ear. Canals and TM appear normal bilaterally. TM???s intact, not inflamed, with normal light reflex. Hearing grossly normal to conversational speech Nose: No deformity, discharge, inflammation, or lesions Mouth: Mucous membranes moist. Normal oropharynx, and posterior pharynx without lesions or exudates. Tongue normal Neck: Neck supple. No masses or palpable cervical nodes. Trachea midline. Thyroid without nodules, masses, tenderness, or enlargement Chest: No chest wall deformity, no chest wall tenderness Lungs: Normal respiratory effort and clear to auscultation Cardio: Regular rate and rhythm, normal S1 and S2, no murmur, no rub Abdomen: Soft, non-distended, non-tender, no M/M/T/G/S Musculoskeletal: No deformity or scoliosis noted. Normal range of motion. Joints normal. No erythema, edema, effusion, or ecchymosis Extremity: No clubbing, cyanosis, edema, or deformity, with normal ROM in both upper and lower bilateral extremities Neurologic: Grossly normal Skin: No rashes, ulcerations, or suspicious lesions Lymph Nodes: No cervical adenopathy, nodes normal Mental Status: Alert and oriented x3. Normal mood and affect Assessment/Plan 1. Adult wellness visit (Z00.00: Encounter for general adult medical examination without abnormal findings) - Discussed recommended screenings and testing for age and lifestyle risks: - Screening for hypertension with blood pressure checks - Screening for depression with PHQ tools - Vaccination recommendations reviewed - Screening for diabetes, vitamin deficiencies, thyroid disorders -Ordered labs today (CMP, CBC, A1c, lipids) - Discuss Resources and Guidelines including proper diet and exercise. - Those with DM and obesity recommendations regarding labs including hgA1c, microalbumin, foot exams, eye exams, nutrition, weight, reviewed - Avoid tobacco and nicotine products and if indicated education provided smoking cessation - Referrals made regarding health maintenance recommendations for Colon Cancer screenings with colonoscopy vs Cologuard, bone density screening with DEXA scans,Breast cancer screening with mammograms, (more content not included)... Normal [facility] Comment on above: Result Comment: Elec tronically Signed By: Tahir BUNN, Leon Jones\.br\Date and Time Signed: 06/13/25 11:23 EDT Grp A Strp PCRon 06-13-2025 Group A Strep Negative Normal Negative [facility] Comment on above: Order Comment: Order Added on by Discern Rule. Result Comment: Test ing performed using DNA amplification. Performed By: #### 1 [id number] #### [facility] [address] [place] [address] Grp A Strp Intrl Ctrl Pass Normal [facility] Comment on above: Order Comment: Order Added on by Discern Rule. Performed By: #### 1 [id number] #### [facility] [address] [place] [address] [id number] 06-13-2025 HbA1c (Bld) [Mass fraction] 5.8 % Normal <=5.9 [facility] Comment on above: Performed By: #### 7 [id number] #### [facility] [address] [place] [address] Lipid Panelon 06-13-2025 Cholesterol [Mass/Vol] 208 mg/dL High 120-200 [facility] Comment on above: Performed By: #### 2 [id number] #### [facility] [address] [place] [address] Cholesterol in HDL [Mass/Vol] 63 mg/dL Invalid Interpretation Code [facility] Comment on above: Result Comment: '>= 60 LOW RISK' '<= 40 HIGH RISK' Performed By: #### 2 [id number] #### [facility] [address] [place] [address] Cholesterol in LDL [Mass/Vol] 134 mg/dL High <=129 [facility] Comment on above: Performed By: #### 2 [id number] #### [facility] [address] [place] [address] Cholesterol in VLDL [Mass/Vol] 19 mg/dL Normal 7-40 [facility] Comment on above: Performed By: #### 2 [id number] #### [facility] [address] [place] [address] Triglyceride [Mass/Vol] 94 mg/dL Normal <=149 [facility] Comment on above: Performed By: #### 2 [id number] #### [facility] [address] [place] [address] eGFRon 06-13-2025 eGFR 102 mL/min/1.73 m2 Normal >=59 [facility] Comment on above: Performed By: #### 1 [id number] #### [facility] [address] [place] [address] ED Clinical Summaryon 2024 ED Clinical Summary ED Clinical Summary [address] [address] ED Clinical Summary Person Information Name: JANA CABALLERO [facility] Age: 54 Years : 1970 Sex: Female Language: Syrian PCP: NONE, XXXX Marital Status: Phone: [phone] Visit Id: Visit Reason: Headache; Medical problem - minor; Body aches; BODY ACHES AND CHILLS, HEADACHE Speciality: Acuity: 4 Enc Type: Emergency Med Service: Emergency Arrival: 06/12/2025 17:52:09 Discharge: 06/12/2025 19:25:26 LOS: 000 01:33 Checkin: 06/12/2025 17:52:09 Checkout: 06/12/2025 19:25:26 Dispo Type: Home (Routine DC) EVENTS: Event Name Event Status Request Date/Time Start Date/Time Complete Date/Time Arrive Complete 06/12/2025 17:52:09 06/12/2025 17:52:09 06/12/2025 17:52:09 Document Home Meds Request 06/12/2025 17:52:09 Triage Complete 06/12/2025 17:52:09 06/12/2025 17:57:19 06/12/2025 17:57:19 Bed Assign Complete 06/12/2025 17:53:46 06/12/2025 17:53:46 06/12/2025 17:53:46 Dr Exam Complete 06/12/2025 17:53:46 06/12/2025 17:55:17 06/12/2025 17:55:17 RN Exam Complete 06/12/2025 17:53:46 06/12/2025 18:15:16 06/12/2025 18:15:16 Registration Complete 06/12/2025 17:55:17 06/12/2025 17:58:05 06/12/2025 17:58:05 Reg Complete Request 06/12/2025 17:58:05 Reg Bed Request Complete 06/12/2025 17:58:05 06/12/2025 17:58:05 06/12/2025 17:58:05 Meds Admin Complete 06/12/2025 18:07:23 06/12/2025 18:24:56 Pending Labs Complete 06/12/2025 18:07:23 06/12/2025 18:57:28 Lab Complete 06/12/2025 18:07:23 06/12/2025 18:57:28 Swab Complete 06/12/2025 18:07:23 06/12/2025 18:57:28 Pending Labs Complete 06/12/2025 18:10:51 06/12/2025 18:57:37 Pending Labs Inlab 06/12/2025 18:57:37 06/12/2025 18:57:37 Discharge Complete 06/12/2025 19:19:22 06/12/2025 19:25:32 06/12/2025 19:25:32 Transfer Complete 06/12/2025 19:25:32 06/12/2025 19:25:32 06/12/2025 19:25:32 [address] [place] [id number] PHYS DOC NOTES: MEDICAL INFORMATION: Prescriptions Given: Medications to Continue with No Changes Other Medications acetaminophen (acetaminophen 325 mg oral tablet, disintegrating) 1 Tablets By Mouth every 4 hours as needed for pain. Refills: 0. acetaminophen-oxycodone (Percocet 5 mg-325 mg oral tablet) 1 Tablets By Mouth every 6 hours as needed as needed for pain. Refills: 0. albuterol (albuterol HFA 90 mcg/inh MDI) 2 Puffs Inhalation every 4 hours as needed for wheezing. Refills: 3. APAP/butalbital/caffeine (APAP/butalbital/caffeine 325 mg-50 mg-40 mg Tab) 1 Tablets By Mouth every 4 hours as needed for headache. Refills: 0. APAP/butalbital/caffeine (APAP/butalbital/caffeine 325 mg-50 mg-40 mg Tab) 2 Tablets By Mouth every 6 hours as needed for headache. Refills: 0. calcium carbonate (calcium (as carbonate) 600 mg oral tablet) 1 Tablets By Mouth 2 times a day. Refills: 0. calcium carbonate (calcium 500 mg tablets) 2 Tablets By Mouth 2 times a day. Refills: 3. cefdinir (cefdinir 300 mg Cap) 1 Capsules By Mouth every 12 hours. cholecalciferol (cholecalciferol 50,000 intl units oral capsule) 1 Capsules By Mouth every 7 days. Refills: 1. ciclopirox topical (Ciclodan 8% topical solution) 1 Application Topical every day. Apply to great toe after shower , file nail, daily to affected area. Refills: 3. cyanocobalamin (Vitamin B12 1000 mcg Tab) 1 Tablets By Mouth every day. Refills: 0. cyclobenzaprine (cyclobenzaprine 10 mg Tab) 1 Tablets By Mouth 3 times a day as needed for spasm. Refills: 0. diclofenac topical (Voltaren Gel 1% Gel) 1 Application Topical 4 times a day as needed for pain. Refills: 0. dicyclomine (Bentyl 10 mg Cap) 1 Capsules By Mouth 4 times a day. escitalopram (escitalopram 10 mg Tab) 1 Tablets By Mouth every day. Refills: 1. ferrous sulfate (ferrous sulfate 325 mg Tab) 1 Tablets By Mouth every day. Refills: 3. ibuprofen (ibuprofen 600 mg Tab) 1 Tablets By Mouth every 8 hours. Refills: 0. ibuprofen (ibuprofen 600 mg Tab) 1 Tablets By Mouth every 8 hours as needed Pain/Fever. Refills: 0. lidocaine topical (lidocaine Top 5% film Patch) 1 Patches Topical every day. apply 12 hours on and 12 hours off daily. Refills: 0. multivitamin with minerals (One A Day Women's Complete oral tablet) 1 Tablets By Mouth every day. Refills: 0. mupirocin topical (mupirocin Top 2% Crm) 1 Application Topical 3 times a day. Refills: 0. naproxen (Naprosyn 500 mg Tab) 1 Tablets By Mouth 2 times a day. Refills: 0. ondansetron (ondansetron 4 mg Dis Tab) 1 Tablets By Mouth every 6 hours as needed Nausea/Vomiting. Refills: 0. ondansetron (Zofran ODT 4 mg Tab-Dis) 1 Tablets By Mouth every 6 hours. Refills: 0. pantoprazole (Pantoprazole [address] Tab) 1 Tablets By Mouth every day. Refills: 4. predniSONE (predniSONE 10 mg Tab) 1 Dose Separtor By Mouth As Directed. Take 3 tabs by mouth daily x5 days, then 2 tabs daily x5 days, then 1 tab daily x5 days.. Refills: 0. predniSONE (predniSONE 50 mg Tab) 1 (more content not included)... Normal [facility] ED Note-Physicianon 06-12-20 ED Note-Physician ED Note-Physician Basic Information Time Seen: Dann Whitmore M.D. 06/12/2025 17:55 Chief Complaint pt states she thinks she has a virus, rpeorts ANDUJAR and body aches. states been around sick people. History of Present Illness The patient is a 54-year-old female who presented to the emergency room with flulike symptoms. The patient states since yesterday she has been having headache. She denies any vision change. The patient denies any fever. She reports chills and sweating. The patient denies any cough. She reports generalized body ache. The patient states she had diarrhea yesterday. She denies any black or bloody stool. The patient denies any nausea, denies any vomiting. She denies any sore throat. She states her throat is dry. The patient denies any chest pain, denies any shortness of breath. The patient denies any other associated symptoms. Review of Systems Additional ROS info: Except as noted in the above Review of Systems and in the History of Present Illness all other systems have been reviewed and are negative or noncontributory. Physical Exam Vitals & Measurements T: 36.2 ???C(Tympanic) HR: 65(Peripheral) RR: 20 BP: 124/66 SpO2: 95% HT: 167 cm WT: 97 kg BMI: 34.78 General: alert, no acute distress Skin: warm, dry Head: no trauma, normocephalic Neck: Trachea midline, mild tenderness anterior neck, supple Eye: normal conjunctiva, sclera clear, PERRL, EOMI, vision unchanged ENMT: Oral mucosa moist, no pharyngeal erythema or exudate Cardiovascular: regular rate and rhythm Respiratory: Lungs CTA, respirations non labored, breath sounds equal Extremities: no deformity, no trauma Neurological: Alert and oriented, speech normal, no focal neuro deficits Psychiatric: cooperative, affect appropriate for age Medical Decision Making MEDICAL DECISION MAKING Number and Complexity of Problems Differential Diagnosis: [] [facility] Data External documents reviewed: [] My EKG interpretation: [] My CT interpretation: [] My X-ray interpretation: [] My Ultrasound interpretation: [] Decision rules/scores evaluated: [] Discussed with: [] Treatment and Disposition ED Course: The patient presented with flulike symptoms. She does not appear to be toxic. The patient is afebrile. Vital signs are stable. COVID, influenza and strep are negative. The patient was given ibuprofen in the emergency room. Will discharge patient home with symptomatic treatment and follow-up with primary care. She is instructed to return to the emergency room if her symptoms get worse, fever, shortness of breath or any new symptoms. Shared decision making: [] Code status: [] Assessment/Plan 1. Flu-like symptoms (R68.89: Other general symptoms and signs) Orders: ibuprofen, 600 mg = 1 tab(s), Tab, Oral, Once, Stop date 06/12/25 18:06:00 EDT, STAT, Start date 06/12/25 18:06:00 EDT, 06/12/25 18:06:00 EDT Group A Strep by PCR Influenza A&B Ag Rapid COVID Antigen ([facility]) Rapid Strep w/rfx Medications Administered Given ibuprofen 600 mg Tab, 600 mg, Oral Disposition Plan Patient Discharge Condition Stable Discharge Disposition Discharge home Discharge Prescription List Prescriptions No active prescription medications Follow-up With When Contact Information Keith Troy In 3 days 06/15/[address] [place], [place] [id number] [facility] (1) Additional Instructions: Return to the emergency room if your symptoms get worse, fever, shortness of breath or any new symptoms. Patient Education Viral Illness, Adult Problem List/Past Medical History Ongoing Abdominal fullness Abdominal pain Acute constipation Allergic rhinitis Anemia B12 deficiency BMI 34.0-34.9,adult Bronchitis DDD (degenerative disc disease), lumbar DDD (degenerative disc disease), lumbosacral Discoloration of skin of toe Dizziness E-coli UTI Exposure to COVID-19 virus Fatigue Flank pain Former smoker Frequency of urination LALO (generalized anxiety disorder) Gastroesophageal reflux disease Hematuria Hiatal hernia History of cervical cancer History of kidney stones HLD (hyperlipidemia) Hydronephrosis with urinary obstruction due to ureteral calculus Hypocalcemia Iron deficiency anemia kidney stones Left-sided low back pain with sciatica Malignant tumor of cervix Mild recurrent major depression Nausea in adult Nicotine dependence, cigarettes, in remission Nocturia Obesity Onychia, toe Onychomycosis Osteoarthritis of left hip Other urethral stricture, female Paresthesia Prediabetes Recurrent headache Renal calculus, right Sciatic pain Scoliosis Screening for colon cancer Screening for lipid disorders Smoker Vertigo Vitamin D deficiency Wellness examination Historical Anemia due to unknown mechanism Cervical cancer Chemotherapy Hernia Low back pain migraines Radiation Procedure/ (more content not included)... Normal [facility] Comment on above: Result Comment: Elec tronically Signed By: Haim Alanis, Dann Gates\.br\Date and Time Signed: 06/12/25 19:21 EDT ED Patient Summaryon 025 ED Patient Summary ED Patient Summary [address] [address] Patient Discharge Instructions Person Information Name: JANA CABALLERO Age: 54 Years Arrival Date: 06/12/2025 17:52:09 Discharge Diagnosis: 1:Flu-like symptoms Primary Care Physician: NONE, XXXX Provider Information Primary Provider: Dann Whitmore M.D. Advanced Asset Management Analyst:None The exam and treatment you received in the Emergency Department were for an urgent problem and are not intended as complete care. It is important that you follow up with a doctor, nurse practitioner, or physician???s accounting administrative assistant for ongoing care. If your symptoms become worse or you do not improve as expected and you are unable to reach your usual health care provider, you should return to the Emergency Department. We are available 24 hours a day. JANA CABALLERO has been given the following list of patient education materials, prescriptions and follow-up instructions: Follow-up Instructions: With: Address: When: Keith Troy [address] [place] [address], [place] [address] Business (1) In 3 days 06/15/2025 Comments: Return to the emergency room if your symptoms get worse, fever, shortness of breath or any new symptoms. In the event that this physician does not participate in your insurance network, please consult with your insurance company to find a nearby participating provider. Patient Education Materials: Viral Illness, Adult A MESSAGE TO ALL PATIENTS REGARDING OPIOIDS PRESCRIPTION OPIOIDS: WHAT YOU NEED TO KNOW Prescription opioids can be used to help relieve qbtyqfov-qg-rvowdy pain and are often prescribed following a surgery or injury, or for certain health conditions. These medications can be an important part of the treatment but also come with serious risks. It is important to work with your healthcare provider to make sure you are getting the safest, most effective care. WHAT ARE THE RISKS AND SIDE EFFECTS OF OPIOID USE? Prescription opioids carry serious risks of addiction and overdose, especially with prolonged use. An opioid overdose, often marked by slowed breathing, can cause sudden . The use of prescription opioids can have a number of side effects as well, even when taken as directed: ??? Tolerance???meaning you might need to take more of the medication for the same pain relief ??? Physical dependence???meaning you have symptoms of withdrawal when a medication is stopped ??? Increased sensitivity to pain ??? Constipation ??? Nausea, vomiting, and dry mouth ??? Sleepiness and dizziness ??? Confusion ??? Depression ??? Low levels of testosterone that can result in lower sex drive, energy, and strength ??? Itching and sweating RISKS ARE GREATER WITH: ??? History of drug misuse, substance use disorder, or overdose ??? Mental health conditions (such as depression or anxiety) ??? Sleep apnea ??? Older age (65 years and older) ??? Avoid alcohol while taking prescription opioids. Also, unless specifically advised by your health care provider, medications to avoid include: ??? Benzodiazepines (such as Xanax or Valium) ??? Muscle relaxants (such as Soma or Flexeril) ??? Hypnotics (such as Ambien or Lunesta) ??? Other prescription opioids KNOW YOUR OPTIONS Talk to your health care provider about ways to manage your pain that don???t involve prescription opioids. Some of these options may actually work better and have fewer risks and side effects. Options may include: ??? Pain relievers such as acetaminophen, ibuprofen, and naproxen ??? Some medication that are also used for depression or seizures ??? Physical therapy and exercise ??? Cognitive behavioral therapy, a psychological, goal-directed approach, in which patients learn how to modify physical, behavioral, and emotional triggers of pain and stress. IF YOU ARE PRESCRIBED OPIOIDS FOR PAIN: ??? Never take opioids in greater amounts or more often than prescribed. ??? Follow up with your primary health care provider. o Work together to create a plan on how to manage your pain. o Talk about ways to help manage your pain that don???t involve prescription opioids. o Talk about any and all concerns and side effects. ??? Help prevent misuse and abuse o Never sell or share prescription opioids. o Never use another person???s prescription opioids. ??? Store prescription opioids in a secure place and out of reach of others (this may include visitors, children, friends, and family). ??? Safely dispose of unused prescription opioids: Find your community drug take-back program or your pharmacy mail-back program, or flush them down the toilet, following guidance from the Food and Drug Administration (www.fda.gov/Drugs/Resource sForYou). ??? Visit www.cdc.gov/drugoverdose to learn about the risks of opioids abuse and (more content not included)... Normal [facility] Influenza A&B Agon Influenzae A Ag Negative Normal Negative [facility] Comment on above: Performed By: #### 1 [id number] #### [facility] [address] [place] [address] Influenzae B Ag Negative Normal Negative [facility] Comment on above: Result Comment: Test sensitivity and specificity vary for age group, specimen type, antigen types, and prevalence of disease. Test results must be evaluated in conjunction with other clinical data available to the physician. Individuals who received nasally administered Influenza A vaccine may have positive test results up to 3 days after vaccination. Performed By: #### 1 [id number] #### [facility] [address] [place] [address] Rapid COVID Antigen ([facility])on 06-12-2025 Rapid COV Int NEG Ctl Pass Normal [facility] Comment on above: Performed By: #### 2 [id number] #### [facility] [address] [place] [address] Rapid COV Int POS Ctl Pass Normal [facility] Comment on above: Performed By: #### 2 [id number] #### [facility] [address] [place] [address] SARS-CoV-2 (COVID-19) RNA AJ+probe Ql (Unsp spec) Not detected Normal Not Detected [facility] Comment on above: Result Comment: The [employer]??? System for Rapid Detection of SARS-CoV-2 is a chromatographic digital immunoassay intended for the direct and qualitative detection of SARS-CoV-2 nucleocapsid antigens in nasal swabs from individuals who are suspected of COVID-19 by their healthcare provider within the first five days of the onset of symptoms. Negative results should be treated as presumptive, do not rule out SARS-CoV-2 infection and should not be used as the sole basis for treatment or patient management decisions, including infection control decisions. Negative results should be considered in the context of a patient???s recent exposures, history and the presence of clinical signs and symptoms consistent with COVID-19, and confirmed with a molecular assay, if necessary, for patient management. For in vitro diagnostic use. In the [place], only for use under an Emergency Use Authorization. In the [place], this test has not been FDA cleared or approved; this test has been authorized by FDA under an EUA for use by authorized laboratories; use by laboratories certified under the CLIA, 42 U.S.C. ???263a, that meet requirements to perform moderate, high, or waived complexity tests and at the Point of Care (POC), i.e., in patient care settings operating under a CLIA Certificate of Waiver, Certificate of Compliance, or Certificate of Accreditation. This test has been authorized only for the detection of proteins from SARS-CoV-2, not for any other viruses or pathogens; and, in the [facility], this test is only authorized for the duration of the declaration that circumstances exist justifying the authorization of emergency use of in vitro diagnostics for detection and/or diagnosis of the virus that causes COVID-19 under Section 564(b)(1) of the Act, 21 U.S.C. ??? 360bbb-3(b)(1), unless the authorization is terminated or revoked sooner. Performed By: #### 2 [id number] #### [facility] [address] [place] [address] Rapid Strep w/rfxon 06-12-20 25 S. pyogenes Ag IA Ql (Unsp spec) Negative Normal Negative [facility] Comment on above: Performed By: #### 2 [id number] #### [facility] [facility] [address] [place] [address] Ambulatory Visit Summaryon 0 06-03-2025 Ambulatory Visit Summary Ambulatory Visit Summary JANA CABALLERO :1970 Visit Date:06/03/2025 Ambulatory Visit Instructions Your Diagnosis BMI 34.0-34.9,adult Obesity LALO (generalized anxiety disorder), Generalized anxiety disorder Your Care Team Attending Physician - Elayne Sanchez Primary Care Physician - NONE, XXXX This Is Your Medications List calcium carbonate (calcium 500 mg tablets) escitalopram (escitalopram 10 mg Tab) pantoprazole (Pantoprazole [address] Tab) Contact prescribing physician if questions or concerns APAP/butalbital/caffeine (APAP/butalbital/caffeine 325 mg-50 mg-40 mg Tab) APAP/butalbital/caffeine (APAP/butalbital/caffeine 325 mg-50 mg-40 mg Tab) acetaminophen (acetaminophen 325 mg oral tablet, disintegrating) acetaminophen-oxycodone (Percocet 5 mg-325 mg oral tablet) albuterol (albuterol HFA 90 mcg/inh MDI) cefdinir (cefdinir 300 mg Cap) cholecalciferol (cholecalciferol 50,000 intl units oral capsule) ciclopirox topical (Ciclodan 8% topical solution) cyanocobalamin (Vitamin B12 1000 mcg Tab) cyclobenzaprine (cyclobenzaprine 10 mg Tab) diclofenac topical (Voltaren Gel 1% Gel) dicyclomine (Bentyl 10 mg Cap) ferrous sulfate (ferrous sulfate 325 mg Tab) ibuprofen (ibuprofen 600 mg Tab) ibuprofen (ibuprofen 600 mg Tab) lidocaine topical (lidocaine Top 5% film Patch) multivitamin with minerals (One A Day Women's Complete oral tablet) mupirocin topical (mupirocin Top 2% Crm) naproxen (Naprosyn 500 mg Tab) ondansetron (Zofran ODT 4 mg Tab-Dis) ondansetron (ondansetron 4 mg Dis Tab) predniSONE (predniSONE 10 mg Tab) predniSONE (predniSONE 50 mg Tab) promethazine (promethazine 25 mg Tab) tamsulosin (Flomax 0.4 mg Cap) Procedures Performed Cystoscopy (03/07/2020), :LEEP, exam under anesthesia (10/06/2016), hernia repair (11/25/2015), incisional hernia repair (05/13/2015), (2004), Tubal ligation (2003), Cancer cervix screening - up-to-date, lymph nodes removed from abdomen, T&A, urethra dialation. Discharge Vitals Heart Rate (Peripheral) 77 Respiratory Rate 18 Blood Pressure 128/84 Height 167.0 cm Height 66 in Weight 97.3 kg Weight 214.51 lb BMI 34.89 What to do next Scheduled Follow-Up Appointments Tuesday 10:20 AM EDT With: Elayne Sanchez Where: [facility] [address] [facility], [place] [address]- Medications What How Much When Why Instructions Unchanged calcium carbonate (calcium 500 mg tablets) 2 Tablets By Mouth 2 times a day Pickup at [facility] #[id number] Unchanged escitalopram (escitalopram 10 mg Tab) 1 Tablets By Mouth Every day Generalized anxiety disorder [id number] Unchanged pantoprazole (Pantoprazole [address] Tab) 1 Tablets By Mouth Every day Chronic GERD [id number] Unchanged acetaminophen (acetaminophen 325 mg oral tablet, disintegrating) 1 Tablets By Mouth Every 4 hours as needed for for pain Contact prescribing physician if questions or concerns Unchanged acetaminophen-oxycodone (Percocet 5 mg-325 mg oral tablet) 1 Tablets By Mouth Every 6 hours as needed for as needed for pain Strain of left groin Contact prescribing physician if questions or concerns Unchanged albuterol (albuterol HFA 90 mcg/ inh MDI) 2 Puffs Inhalation Every 4 hours as needed for for wheezing Smoking Contact prescribing physician if questions or concerns Unchanged APAP/ butalbital/ caffeine (APAP/ butalbital/ caffeine 325 mg-50 mg-40 mg Tab) 1 Tablets By Mouth Every 4 hours as needed for for headache Contact prescribing physician if questions or concerns Unchanged APAP/ butalbital/ caffeine (APAP/ butalbital/ caffeine 325 mg-50 mg-40 mg Tab) 2 Tablets By Mouth Every 6 hours as needed for for headache Contact prescribing physician if questions or concerns Unchanged cefdinir (cefdinir 300 mg Cap) 1 Capsules By Mouth Every 12 hours Contact prescribing physician if questions or concerns Unchanged cholecalciferol (cholecalciferol 50,000 intl units oral capsule) 1 Capsules By Mouth Every 7 days Vitamin D deficiency Contact prescribing physician if questions or concerns Unchanged ciclopirox topical (Ciclodan 8% topical solution) 1 Application Topical Every day Onychomycosis Apply to great toe after shower , file nail, daily to affected area Contact prescribing physician if questions or concerns Unchanged cyanocobalamin (Vitamin B12 1000 mcg Tab) 1 Tablets By Mouth Every day B12 deficiency Contact prescribing physician if questions or concerns Unchanged cyclobenzaprine (cyclobenzaprine 10 mg Tab) 1 Tablets By Mouth 3 times a day as needed for for spasm Contact prescribing physician if questions or concerns Unchanged diclofenac topical (Voltaren Gel 1% Gel) 1 Application Topical 4 times a day as needed for for pain Contact prescribing physician if questions or concerns Unchanged dicyclomine (more content not included)... Normal [facility] Ambulatory Visit Summary Ambulatory Visit Summary JANA CABALLERO :1970 Visit Date:06/03/2025 Ambulatory Visit Instructions Your Diagnosis BMI 34.0-34.9,adult Obesity LALO (generalized anxiety disorder), Generalized anxiety disorder Your Care Team Attending Physician - Elayne Sanchez Primary Care Physician - NONE, XXXX This Is Your Medications List calcium carbonate (calcium 500 mg tablets) escitalopram (escitalopram 10 mg Tab) pantoprazole (Pantoprazole [address] Tab) Contact prescribing physician if questions or concerns APAP/butalbital/caffeine (APAP/butalbital/caffeine 325 mg-50 mg-40 mg Tab) APAP/butalbital/caffeine (APAP/butalbital/caffeine 325 mg-50 mg-40 mg Tab) acetaminophen (acetaminophen 325 mg oral tablet, disintegrating) acetaminophen-oxycodone (Percocet 5 mg-325 mg oral tablet) albuterol (albuterol HFA 90 mcg/inh MDI) cefdinir (cefdinir 300 mg Cap) cholecalciferol (cholecalciferol 50,000 intl units oral capsule) ciclopirox topical (Ciclodan 8% topical solution) cyanocobalamin (Vitamin B12 1000 mcg Tab) cyclobenzaprine (cyclobenzaprine 10 mg Tab) diclofenac topical (Voltaren Gel 1% Gel) dicyclomine (Bentyl 10 mg Cap) ferrous sulfate (ferrous sulfate 325 mg Tab) ibuprofen (ibuprofen 600 mg Tab) ibuprofen (ibuprofen 600 mg Tab) lidocaine topical (lidocaine Top 5% film Patch) multivitamin with minerals (One A Day Women's Complete oral tablet) mupirocin topical (mupirocin Top 2% Crm) naproxen (Naprosyn 500 mg Tab) ondansetron (Zofran ODT 4 mg Tab-Dis) ondansetron (ondansetron 4 mg Dis Tab) predniSONE (predniSONE 10 mg Tab) predniSONE (predniSONE 50 mg Tab) promethazine (promethazine 25 mg Tab) tamsulosin (Flomax 0.4 mg Cap) Procedures Performed Cystoscopy (03/07/2020), :LEEP, exam under anesthesia (10/06/2016), hernia repair (11/25/2015), incisional hernia repair (05/13/2015), (2003), Tubal ligation (2003), Cancer cervix screening - up-to-date, lymph nodes removed from abdomen, T&A, urethra dialation. Discharge Vitals Heart Rate (Peripheral) 77 Respiratory Rate 18 Blood Pressure 128/84 Height 167.0 cm Height 66 in Weight 97.3 kg Weight 214.51 lb BMI 34.89 What to do next Scheduled Follow-Up Appointments Tuesday 10:20 AM EDT With: Elayne Sanchez Where: [facility] [address] [facility], [place] [address]- Medications What How Much When Why Instructions Unchanged calcium carbonate (calcium 500 mg tablets) 2 Tablets By Mouth 2 times a day Pickup at [facility] #[id number] Unchanged escitalopram (escitalopram 10 mg Tab) 1 Tablets By Mouth Every day Generalized anxiety disorder Pickup at [facility] #[id number] Unchanged pantoprazole (Pantoprazole [address] Tab) 1 Tablets By Mouth Every day Chronic GERD Pickup at [facility] #[id number] Unchanged acetaminophen (acetaminophen 325 mg oral tablet, disintegrating) 1 Tablets By Mouth Every 4 hours as needed for for pain Contact prescribing physician if questions or concerns Unchanged acetaminophen-oxycodone (Percocet 5 mg-325 mg oral tablet) 1 Tablets By Mouth Every 6 hours as needed for as needed for pain Strain of left groin Contact prescribing physician if questions or concerns Unchanged albuterol (albuterol HFA 90 mcg/ inh MDI) 2 Puffs Inhalation Every 4 hours as needed for for wheezing Smoking Contact prescribing physician if questions or concerns Unchanged APAP/ butalbital/ caffeine (APAP/ butalbital/ caffeine 325 mg-50 mg-40 mg Tab) 1 Tablets By Mouth Every 4 hours as needed for for headache Contact prescribing physician if questions or concerns Unchanged APAP/ butalbital/ caffeine (APAP/ butalbital/ caffeine 325 mg-50 mg-40 mg Tab) 2 Tablets By Mouth Every 6 hours as needed for for headache Contact prescribing physician if questions or concerns Unchanged cefdinir (cefdinir 300 mg Cap) 1 Capsules By Mouth Every 12 hours Contact prescribing physician if questions or concerns Unchanged cholecalciferol (cholecalciferol 50,000 intl units oral capsule) 1 Capsules By Mouth Every 7 days Vitamin D deficiency Contact prescribing physician if questions or concerns Unchanged ciclopirox topical (Ciclodan 8% topical solution) 1 Application Topical Every day Onychomycosis Apply to great toe after shower , file nail, daily to affected area Contact prescribing physician if questions or concerns Unchanged cyanocobalamin (Vitamin B12 1000 mcg Tab) 1 Tablets By Mouth Every day B12 deficiency Contact prescribing physician if questions or concerns Unchanged cyclobenzaprine (cyclobenzaprine 10 mg Tab) 1 Tablets By Mouth 3 times a day as needed for for spasm Contact prescribing physician if questions or concerns Unchanged diclofenac topical (Voltaren Gel 1% Gel) 1 Application Topical 4 times a day as needed for for pain Contact prescribing physician if questions or concerns Unchanged dicyclomine (more content not included)... Normal [facility] Family Medicine Office/Clini c Noteon 06-03-2025 Family Medicine Office/Clinic Note Family Medicine Office/Clinic Note Chief Complaint ER Follow Up./ Home medications. HPI Staff Patient here today for ER follow up. [place]en [place] [facility] Concerns since discharge: Home Medications. Medical Decision Making 54-year-old female reports to the emerged department with concerns of body aches, fatigue, and just feeling unwell. Reports nausea. Concern for possible COVID. Also reports Possible UTI. Exam patient here is completely benign. No acute findings on exam. She is afebrile. No acute distress. Due to concerns, we did do a COVID swab, chest x-ray as well as a urinalysis to the patient. COVID and chest x-ray were negative. She does have a what appears to be a UTI. Her symptoms been normal so we, I did treat with cefdinir as this will cover any possible respiratory infection as well as the urine. Patient was understanding. Discussed return precautions. Follow-up with your primary care provider in 3 to 5 days. If symptoms worsen, do not improve, or new symptoms arise please report back to emergency department for further evaluation. The patient was understanding and agreeable to plan moving forward. History of Present Illness I have reviewed and discussed the HPI (staff) with the patient today. Information was verified and is correct. Additional information provided if needed. Pt reports to the office today for ER follow up visit. She was seen in ER 05/25 with complaints of body aches, fatigue, and concern for possible COVID. COVID swab and chest xray negative. UA was positive. She was ultimately treated for UTI with cefdinir and discharged home. She reports that since then she has passed a kidney stone and all urinary symptoms have resolved--no further urinary concerns at this time. Today she reports that her respiratory symptoms and headaches have resolved and she is feeling much better. She does report that she feels her frequent ER visits are due to not having her necessary medications at home. She needs several medications refilled today. She does wish to restart her lexapro as she has been without it for many months and feels that her anxiety has been a bit worse. Denies SI/HI. Was on lexapro 10mg/day. Tolerated this well. Denies worsening depression. Review of Systems PHQ Score Initial Depression Screen Score: 0 SCORE ROS negative unless otherwise stated in HPI. Physical Exam Vitals & Measurements HR: 77(Peripheral) RR: 18 BP: 128/84 SpO2: 97% HT: 167.0 cm HT: 66 in WT: 214.51 lb WT: 97.3 kg BMI: 34.89 PHYSICAL EXAM General: Well developed, well nourished, no apparent distress Head:Normocephalic, atraumatic Eyes:EOMI, sclera clear Nose:No deformity, discharge, inflammation or lesions Mouth:Mucosa moist. Normal oropharynx and posterior pharynx without lesions or exudate. Tongue normal. Neck:No bruit, symmetric Lungs:Lungs clear to auscultation Cardio:Regular rate and rhythm with no murmur Pulses:Pulses present in all four extremities Abdomen:Normal bowel sounds, non tender, no masses : not evaluated Musculoskeletal:Normal ROM of extremities, self ambulating Neuro:grossly normal Skin:No abnormal skin lesions Lymph Nodes: No cervical lymphadenopathy Mental Status: Alert and cooperative with appropriate mood and affect Assessment/Plan 1. UTI (urinary tract infection) (N39.0: Urinary tract infection, site not specified) Acute, resolved. Pt completed course of antibiotics and declines any further urinary symptoms. States she thinks she passed a kidney stone last week. Pt is aware of red flags/when to report to ER for emergency medical evaluation. 2. History of kidney stones (Z87.442: Personal history of urinary calculi) Chronic, intermittent. States she think she passed a stone last week. No longer experiencing pain or urinary symptoms. Pt is aware of red flags/when to report to ER for emergency medical evaluation. Follow up as needed. 3. Acute URI (J06.9: Acute upper respiratory infection, unspecified) Acute, resolved. Pt is aware of red flags/when to report to ER for emergency medical evaluation. 4. LALO (generalized anxiety disorder) (F41.1: Generalized anxiety disorder) LALO score: 10 Restart lexapro 10mg/day Discussed red flags/when to seek emergency care and mental health support hotlines. Pt verbalized understanding of resources and when to seek emergency care and denies SI/HI at this time. Pt declines therapy at this time. F/U 1 months and PRN. Ordered: escitalopram, 10 mg = 1 tab(s), Oral, Daily, # 30 tab(s), Refills(s) 1, Pharmacy: [facility] #[id number], 167, cm, 06/03/25 17:09:00 EDT, Height/Length Dosing, 97.3, kg, 06/03/25 17:09:00 EDT, Weight Dosing 5. BMI 34.0-34.9,adult (Z68.34: Body mass index [BMI] 34.0-34.9, adult) The standard range for ages 18 and older is >=18.5 and < 25 kg/m2. Your BMI today was above this range, this falls in the overweight to obese category and there are medical benefits to weight loss. We can offer counselling, referral, and/or medical s (more content not included)... Normal [facility] Comment on above: Result Comment: Elec tronically Signed By: Vitor MEJIA, Elayne Durham.br\Date and Time Signed: 06/03/25 20:06 EDT C Urineon 05-27-2025 Bacteria identified Cx Nom (U) Microbiology PROCEDURE: Urine Culture [R1] SOURCE: U CleanCatch BODY SITE: COLLECTED DATE/TIME: 05/25/2025 17:00 EDT RECEIVED DATE/TIME: 05/25/2025 17:21 EDT START DATE/TIME: 05/25/2025 17:21 EDT FREE TEXT SOURCE: Gustavo BRIONES, Wes Jones. Gustavo BRIONES, Wes Jones. FINAL REPORTS Final Report [] Verified Date/Time: 05/27/2025 07:33 EDT >100,000 cfu/ml Escherichia coli SUSCEPTIBILITY RESULTS LEGEND: S=Susceptible, N/R=Not Reported, Blank=Data not available, or drug not advisable or tested, I=Intermediate, ESBL=Extended spectrum beta-lactamase, R=Resistant, TFG=Thymidine-dependent strain, LAZ=Beta-lactamase positive, MOSES=mcg/m;(mg/L), S*=Predicted susceptible interp, R*=Predicted resistant interp EC Antibiotic MOSES Dilutn MOSES Interp Ampicillin <=8 S Ampicillin/ <=8/4 S Sulbactam Cefazolin <=2 S Cefepime <=2 S Ceftazidime/ <=8 S Avibactam Ceftriaxone <=1 S Cefuroxime <=4 S Ciprofloxacin <=0.25 S Ertapenem <=0.5 S Gentamicin <=2 S Levofloxacin <=0.5 S Meropenem <=1 S Nitrofurantoin <=32 S Piperacillin/ <=8 S Tazobactam Tetracycline <=4 S Tobramycin <=2 S Trimethoprim/ <=2/38 S Sulfa Performing Locations R1: This test was performed at: [facility], [address] [place] [address], [id number] [phone] , Normal [facility] Comment on above: Performed By: #### [id number] #### [facility] [address] [place] [id number] XR Chest 2 Viewson XR Chest 2 Views Exam Date/Time: 05/25/2025 17:28 EDT Reason for Exam: Cough Report IMPRESSION: NO RADIOGRAPHIC EVIDENCE OF ACTIVE DISEASE IN THE CHEST. CLINICAL INFORMATION: Cough COMPARISON: 12/06/2024 FINDINGS: Two views of the chest were obtained. Heart and mediastinum appear normal. The lungs appear clear. Visualized bony thorax and remainder of the chest appears unremarkable. Ordering Provider: Wes Chen FINAL REPORT Dictated: 05/26/2025 8:10 am Nahum Monson MD Signed (Electronic Signature): 05/26/2025 8:10 am Signed by: Nahum Monson MD Transcribed by: JG Technologist: MINOR Normal [facility] ED Clinical Summaryon 2024 ED Clinical Summary ED Clinical Summary [address] [address] ED Clinical Summary Person Information Name: JANA CABALLERO [place] Age: 54 Years : 1970 Sex: Female Language: Syrian PCP: Elayne Sanchez Marital Status: Phone: [phone] Visit Id: Visit Reason: Medical problem - minor; Malaise; Body aches; HEADACHE, BACK PAIN, NAUSEA Speciality: Acuity: 4 Enc Type: Emergency Med Service: Emergency Arrival: 05/25/2025 15:51:41 Discharge: 05/25/2025 18:02:46 LOS: 000 02:11 Checkin: 05/25/2025 15:51:41 Checkout: 05/25/2025 18:02:46 Dispo Type: Home (Routine DC) EVENTS: Event Name Event Status Request Date/Time Start Date/Time Complete Date/Time Arrive Complete 05/25/2025 15:51:41 05/25/2025 15:51:41 05/25/2025 15:51:41 Document Home Meds Request 05/25/2025 15:51:41 Triage Complete 05/25/2025 15:51:41 05/25/2025 15:56:47 05/25/2025 15:56:47 Dr Exam Complete 05/25/2025 15:53:04 05/25/2025 15:53:04 05/25/2025 15:53:04 Registration Complete 05/25/2025 15:53:04 05/25/2025 15:53:24 05/25/2025 16:14:19 Bed Assign Complete 05/25/2025 15:53:24 05/25/2025 15:53:24 05/25/2025 15:53:24 RN Exam Complete 05/25/2025 15:53:24 05/25/2025 16:16:17 05/25/2025 16:16:17 Dr Exam Complete 05/25/2025 15:54:17 05/25/2025 15:54:17 05/25/2025 15:54:17 Reg Complete Request 05/25/2025 16:14:19 Reg Bed Request Complete 05/25/2025 16:14:19 05/25/2025 16:14:19 05/25/2025 16:14:19 Pending Labs Complete 05/25/2025 16:19:03 05/25/2025 16:50:30 Lab Complete 05/25/2025 16:19:03 05/25/2025 16:50:31 X-Ray Complete 05/25/2025 16:19:03 05/25/2025 16:29:42 05/25/2025 17:28:50 Pending Labs Complete 05/25/2025 16:44:17 05/25/2025 17:13:11 Pending Labs Inlab 05/25/2025 17:13:12 05/25/2025 17:13:12 Lab Inlab 05/25/2025 17:13:12 05/25/2025 17:13:12 Wet Read Request 05/25/2025 17:28:50 Meds Admin Complete 05/25/2025 17:37:47 05/25/2025 18:00:53 Discharge Complete 05/25/2025 17:39:25 05/25/2025 18:02:55 05/25/2025 18:02:55 Transfer Complete 05/25/2025 18:02:55 05/25/2025 18:02:55 05/25/2025 18:02:55 ADDRESS: [place] [facility] [phone] PHYS DOC NOTES: MEDICAL INFORMATION: Prescriptions Given: New Medications [id number], [address] [place] [phone], [phone] acetaminophen (acetaminophen 325 mg oral tablet, disintegrating) 1 Tablets By Mouth every 4 hours as needed for pain. Refills: 0. cefdinir (cefdinir 300 mg Cap) 1 Capsules By Mouth every 12 hours for 7 Days. Refills: 0. Medications to Continue Taking That Have Changed [facility] [employer] [facility] #[id number], [address] [place] [phone], [phone] START: ibuprofen (ibuprofen 600 mg Tab) 1 Tablets By Mouth every 8 hours. Refills: 0. START: predniSONE (predniSONE 50 mg Tab) 1 Tablets By Mouth every day for 5 Days. Refills: 0. Other Medications START: ibuprofen (ibuprofen 600 mg Tab) 1 Tablets By Mouth every 8 hours as needed Pain/Fever. Refills: 0. START: predniSONE (predniSONE 10 mg Tab) 1 Dose Separtor By Mouth As Directed. Take 3 tabs by mouth daily x5 days, then 2 tabs daily x5 days, then 1 tab daily x5 days.. Refills: 0. Medications to Continue with No Changes Other Medications acetaminophen-oxycodone (Percocet 5 mg-325 mg oral tablet) 1 Tablets By Mouth every 6 hours as needed as needed for pain. Refills: 0. albuterol (albuterol HFA 90 mcg/inh MDI) 2 Puffs Inhalation every 4 hours as needed for wheezing. Refills: 3. APAP/butalbital/caffeine (APAP/butalbital/caffeine 325 mg-50 mg-40 mg Tab) 1 Tablets By Mouth every 4 hours as needed for headache. Refills: 0. APAP/butalbital/caffeine (APAP/butalbital/caffeine 325 mg-50 mg-40 mg Tab) 2 Tablets By Mouth every 6 hours as needed for headache. Refills: 0. calcium carbonate (calcium 500 mg tablets) 2 Tablets By Mouth 2 times a day. Refills: 3. cholecalciferol (cholecalciferol 50,000 intl units oral capsule) 1 Capsules By Mouth every 7 days. Refills: 1. ciclopirox topical (Ciclodan 8% topical solution) 1 Application Topical every day. Apply to great toe after shower , file nail, daily to affected area. Refills: 3. cyanocobalamin (Vitamin B12 1000 mcg Tab) 1 Tablets By Mouth every day. Refills: 0. cyclobenzaprine (cyclobenzaprine 10 mg Tab) 1 Tablets By Mouth 3 times a day as needed for spasm. Refills: 0. diclofenac topical (Voltaren Gel 1% Gel) 1 Application Topical 4 times a day as needed for pain. Refills: 0. dicyclomine (Bentyl 10 mg Cap) 1 Capsules By Mouth 4 times a day. escitalopram (escitalopram 10 mg Tab) 1 Tablets By Mouth every day. Refills: 3. ferrous sulfate (ferrous sulfate 325 mg Tab) 1 Tablets By Mouth every day. Refills: 3. lidocaine topical (lidocaine Top 5% film Patch) 1 Patches Topical every day. apply 12 hours on and 12 hours off daily. Refills: 0. multivitamin with minerals (One A Day Women's Complete oral tablet) 1 Tablets By Mouth every day. Refills: 0. mupirocin (more content not included)... Normal [facility] ED Note-Physicianon 05-25-20 ED Note-Physician ED Note-Physician Basic Information Time Seen: Gustavo BRIONES, Wes James 05/25/2025 15:53 Chief Complaint pt reports body aches, faitgue, and nausea that started yesterday into today. states has concerns for covid. History of Present Illness A 54-year-old female reports emergency department with concerns of body aches, fatigue and nausea. Reports started yesterday into today. Reports that she has been sick for about a week though believes that she may have had COVID. She would like a COVID test. She denies any fevers, does report some chills. Concern for possible UTI as well. Mild cough. Just feels unwell. Has not take any medications yet for this. Denies any sick contacts. Denies any allergies. Review of Systems No other aggravating or relieving factors no other associated symptoms no other prior treatments or complaints. Family: Reviewed and noncontributory Social: lives at home Review of systems negative unless otherwise specified in the HPI. Physical Exam Vitals & Measurements T: 36.5 ???C(Tympanic) HR: 72(Peripheral) RR: 20 BP: 166/78 SpO2: 97% HT: 167 cm WT: 96 kg BMI: 34.42 General: The patient appears well and in no apparent distress. Patient is resting comfortably in chair. Afebrile Skin: Warm, dry, no pallor noted. Head: Normocephalic, atraumatic Neck: No JVD Eye: PERRLA, EOMI ENT: Moist mucus membranes Cardiovascular: Regular rate. normal peripheral perfusion. Radial pulses +2 bilaterally Respiratory: No respiratory distress. no accessory muscle use. no obvious audible wheezing. Lung sounds clear Chest Wall: no deformity Musculoskeletal: normal ROM, no deformity, no swelling. GI: No obvious distention. Abdomen soft. No rebound tenderness or guarding noted Neurological: A&O. moves all extremities equal strength and symmetry Psychiatric: Cooperative and appropriate Medical Decision Making 54-year-old female reports to the emerged department with concerns of body aches, fatigue, and just feeling unwell. Reports nausea. Concern for possible COVID. Also reports Possible UTI. Exam patient here is completely benign. No acute findings on exam. She is afebrile. No acute distress. Due to concerns, we did do a COVID swab, chest x-ray as well as a urinalysis to the patient. COVID and chest x-ray were negative. She does have a what appears to be a UTI. Her symptoms been normal so we, I did treat with cefdinir as this will cover any possible respiratory infection as well as the urine. Patient was understanding. Discussed return precautions. Follow-up with your primary care provider in 3 to 5 days. If symptoms worsen, do not improve, or new symptoms arise please report back to emergency department for further evaluation. The patient was understanding and agreeable to plan moving forward. Assessment/Plan Protracted URI (J06.9: Acute upper respiratory infection, unspecified) UTI (urinary tract infection) (N39.0: Urinary tract infection, site not specified) Orders: acetaminophen, 325 mg = 1 tab(s), Oral, q4hr, PRN for pain, # 50 tab(s), Refills(s) 0, Pharmacy: [facility] #[id number], 167, cm, 05/25/25 15:56:00 EDT, Height/Length Dosing, 96, kg, 05/25/25 15:56:00 EDT, Weight Dosing acetaminophen, 975 mg = 3 tab(s), Tab, Oral, Once, Stop date 05/25/25 17:37:00 EDT, STAT, Start date 05/25/25 17:37:00 EDT, 05/25/25 17:37:00 EDT cefdinir, 300 mg = 1 cap(s), Cap, Oral, Once, Stop date 05/25/25 17:37:00 EDT, STAT, Start date 05/25/25 17:37:00 EDT, 05/25/25 17:37:00 EDT cefdinir, 300 mg = 1 cap(s), Oral, q12hr, X 7 day(s), # 14 cap(s), Refills(s) 0, Pharmacy: [email or web address] #[id number], 167, cm, 05/25/25 15:56:00 EDT, Height/Length Dosing, 96, kg, 05/25/25 15:56:00 EDT, Weight Dosing ibuprofen, 600 mg = 1 tab(s), Oral, q8hr, # 30 tab(s), Refills(s) 0, Pharmacy: [email or web address] #[id number], 167, cm, 05/25/25 15:56:00 EDT, Height/Length Dosing, 96, kg, 08/30/25 15:56:00 EDT, Weight Dosing predniSONE, 60 mg = 3 tab(s), Tab, Oral, Once, Stop date 05/25/25 17:37:00 EDT, STAT, Start date 05/25/25 17:37:00 EDT, 05/25/25 17:37:00 EDT predniSONE, 50 mg = 1 tab(s), Oral, Daily, X 5 day(s), # 5 tab(s), Refills(s) 0, Pharmacy: [facility] #[id number], 167, cm, 05/25/25 15:56:00 EDT, Height/Length Dosing, 96, kg, 05/25/25 15:56:00 EDT, Weight Dosing Rapid COVID Ant[place]A with Cult Rflx Urine Culture XR Chest 2 Views Medications Administered Given acetaminophen 325 mg Tab, 975 mg, Oral cefdinir 300 mg Cap, 300 mg, Oral predniSONE 20 mg Tab, 60 mg, Oral Disposition Plan Patient Discharge Condition stable Discharge Disposition to home Discharge Prescription List Prescriptions acetaminophen 325 mg oral tablet, disintegrating, 325 mg= 1 tab(s), Oral, q4hr, PRN cefdinir 300 mg Cap, 300 mg= 1 cap(s), Oral, q12hr ibuprofen 600 mg Tab, 600 mg= 1 tab(s), Oral, q8hr predniSONE 50 mg Tab, 50 mg= 1 tab(s), Oral, Daily Follow-up With When Contact Information Elayne Adler In 3 days 05/28/2025 EDT 24 Hy (more content not included)... Normal [facility] Comment on above: Result Comment: Elec tronically Signed By: Wes Chen PA-C\.br\Date and Time Signed: 05/25/25 18:16 EDT\.br\Electronically Co-Signed By: Dann Whitmore M.D.\.br\Date and Time Co-Signed: 05/25/25 18:38 EDT ED Patient Summaryon 025 ED Patient Summary ED Patient Summary [place] [id number] Patient Discharge Instructions Person Information Name: JANA CABALLERO Age: 54 Years Arrival Date: 05/25/2025 15:51:41 Discharge Diagnosis: Protracted URI; UTI (urinary tract infection) Primary Care Physician: Elayne Sanchez Provider Information Primary Provider: Dann Whitmore M.D. Advanced Asset Management Analyst:Wes Chen PA-C The exam and treatment you received in the Emergency Department were for an urgent problem and are not intended as complete care. It is important that you follow up with a doctor, nurse practitioner, or physician???s accounting administrative assistant for ongoing care. If your symptoms become worse or you do not improve as expected and you are unable to reach your usual health care provider, you should return to the Emergency Department. We are available 24 hours a day. JANA CABALLERO has been given the following list of patient education materials, prescriptions and follow-up instructions: Follow-up Instructions: With: Address: When: Elayne Adler [address] [place] [address] [phone] Business (1) In 3 days 05/28/2025 Comments: Call Dr for diagnosis based follow up In the event that this physician does not participate in your insurance network, please consult with your insurance company to find a nearby participating provider. Patient Education Materials: Upper Respiratory Infection, Adult, Behl-vx-Hycv; Urinary Tract Infection, Adult, Zgii-rs-Rqjd A MESSAGE TO ALL PATIENTS REGARDING OPIOIDS PRESCRIPTION OPIOIDS: WHAT YOU NEED TO KNOW Prescription opioids can be used to help relieve uiarqcxs-fn-srsdxr pain and are often prescribed following a surgery or injury, or for certain health conditions. These medications can be an important part of the treatment but also come with serious risks. It is important to work with your healthcare provider to make sure you are getting the safest, most effective care. WHAT ARE THE RISKS AND SIDE EFFECTS OF OPIOID USE? Prescription opioids carry serious risks of addiction and overdose, especially with prolonged use. An opioid overdose, often marked by slowed breathing, can cause sudden . The use of prescription opioids can have a number of side effects as well, even when taken as directed: ??? Tolerance???meaning you might need to take more of the medication for the same pain relief ??? Physical dependence???meaning you have symptoms of withdrawal when a medication is stopped ??? Increased sensitivity to pain ??? Constipation ??? Nausea, vomiting, and dry mouth ??? Sleepiness and dizziness ??? Confusion ??? Depression ??? Low levels of testosterone that can result in lower sex drive, energy, and strength ??? Itching and sweating RISKS ARE GREATER WITH: ??? History of drug misuse, substance use disorder, or overdose ??? Mental health conditions (such as depression or anxiety) ??? Sleep apnea ??? Older age (65 years and older) ??? Avoid alcohol while taking prescription opioids. Also, unless specifically advised by your health care provider, medications to avoid include: ??? Benzodiazepines (such as Xanax or Valium) ??? Muscle relaxants (such as Soma or Flexeril) ??? Hypnotics (such as Ambien or Lunesta) ??? Other prescription opioids KNOW YOUR OPTIONS Talk to your health care provider about ways to manage your pain that don???t involve prescription opioids. Some of these options may actually work better and have fewer risks and side effects. Options may include: ??? Pain relievers such as acetaminophen, ibuprofen, and naproxen ??? Some medication that are also used for depression or seizures ??? Physical therapy and exercise ??? Cognitive behavioral therapy, a psychological, goal-directed approach, in which patients learn how to modify physical, behavioral, and emotional triggers of pain and stress. IF YOU ARE PRESCRIBED OPIOIDS FOR PAIN: ??? Never take opioids in greater amounts or more often than prescribed. ??? Follow up with your primary health care provider. o Work together to create a plan on how to manage your pain. o Talk about ways to help manage your pain that don???t involve prescription opioids. o Talk about any and all concerns and side effects. ??? Help prevent misuse and abuse o Never sell or share prescription opioids. o Never use another person???s prescription opioids. ??? Store prescription opioids in a secure place and out of reach of others (this may include visitors, children, friends, and family). ??? Safely dispose of unused prescription opioids: Find your community drug take-back program or your pharmacy mail-back program, or flush them down the toilet, following guidance from the Food and Drug Administration (www.fda.gov/Drugs/Resource sForYou). ??? Visit www.cdc.gov/drugoverdos (more content not included)... Normal [facility] Rapid COVID Antigen ([facility])on 05-25-2025 Rapid COV Int NEG Ctl Pass Normal [facility] Comment on above: Performed By: #### 2 [id number] #### [facility] [address] [place] [address] Rapid COV Int POS Ctl Pass Normal [facility] Comment on above: Performed By: #### 2 [id number] #### [facility] [address] [place] [address] SARS-CoV-2 (COVID-19) RNA AJ+probe Ql (Unsp spec) Not detected Normal Not Detected [facility] Comment on above: Result Comment: The InboxFever??? System for Rapid Detection of SARS-CoV-2 is a chromatographic digital immunoassay intended for the direct and qualitative detection of SARS-CoV-2 nucleocapsid antigens in nasal swabs from individuals who are suspected of COVID-19 by their healthcare provider within the first five days of the onset of symptoms. Negative results should be treated as presumptive, do not rule out SARS-CoV-2 infection and should not be used as the sole basis for treatment or patient management decisions, including infection control decisions. Negative results should be considered in the context of a patient???s recent exposures, history and the presence of clinical signs and symptoms consistent with COVID-19, and confirmed with a molecular assay, if necessary, for patient management. For in vitro diagnostic use. In the [place], only for use under an Emergency Use Authorization. In the [place], this test has not been FDA cleared or approved; this test has been authorized by FDA under an EUA for use by authorized laboratories; use by laboratories certified under the CLIA, 42 U.S.C. ???263a, that meet requirements to perform moderate, high, or waived complexity tests and at the Point of Care (POC), i.e., in patient care settings operating under a CLIA Certificate of Waiver, Certificate of Compliance, or Certificate of Accreditation. This test has been authorized only for the detection of proteins from SARS-CoV-2, not for any other viruses or pathogens; and, in the [place], this test is only authorized for the duration of the declaration that circumstances exist justifying the authorization of emergency use of in vitro diagnostics for detection and/or diagnosis of the virus that causes COVID-19 under Section 564(b)(1) of the Act, 21 U.S.C. ??? 360bbb-3(b)(1), unless the authorization is terminated or revoked sooner. Performed By: #### 2 [id number] #### [facility] [address] [place] [address] UA with Cult Rflxon 05-25-20 25 Color (U) Yellow Normal Yellow [facility] Comment on above: Result Comment: Micr oscopic readings are only performed on those samples that meet specific criteria set forth by [facility]. Performed By: #### 4 [id number] #### [facility] [address] [place] [address] Glucose (U) [Mass/Vol] Negative Normal Negative [facility] Comment on above: Performed By: #### 4 [id number] #### [facility] [address] [place] [address] Ketones Ql (U) Negative Normal Negative [facility] Comment on above: Performed By: #### 4 [id number] #### [facility] [address] [place] [address] UA Blood 3+ mg/dL Abnormal Negative [facility] Comment on above: Performed By: #### 4 [id number] #### [facility] [address] [place] [address] UA Bacteria Trace Normal Trace [facility] Comment on above: Performed By: #### 4 [id number] #### [facility] [address] [place] [address] UA Clarity Turbid Abnormal Clear [facility] Comment on above: Performed By: #### 4 [id number] #### [facility] [address] [place] [address] UA Leuk Est 250 Conrad/uL Abnormal Negative [facility] Comment on above: Performed By: #### 4 [id number] #### [facility] [address] [place] [address] UA Mucous Trace Normal Negative [facility] Comment on above: Performed By: #### 4 [id number] #### [facility] [address] [place] [address] UA Nitrite Negative Normal Negative [facility] Comment on above: Performed By: #### 4 [id number] #### [facility] [address] [place] [address] UA pH 6.0 Invalid Interpretation Code 5.0-9.0 [facility] Comment on above: Performed By: #### 4 [id number] #### [facility] [address] [place] [address] UA Protein Trace Abnormal Negative [facility] Comment on above: Performed By: #### 4 [id number] #### [facility] [address] [place] [address] UA RBC >75 Abnormal 0-3 [facility] Comment on above: Performed By: #### 4 [id number] #### [facility] [address] [place] [address] UA Spec Grav 1.019 Invalid Interpretation Code 1.005-1.030 [facility] Comment on above: Performed By: #### 4 [id number] #### [facility] [address] [place] [address] UA Urobilinogen Negative Normal Negative [facility] Comment on above: Performed By: #### 4 [id number] #### [facility] [address] [place] [address] UA WBC 31-75 Abnormal 0-5 [facility] Comment on above: Performed By: #### 4 [id number] #### [facility] [address] [place] [address] Urobilinogen (U) [Mass/Vol] Negative Normal Negative [facility] Comment on above: Performed By: #### 4 [id number] #### [facility] [address] [place] [address] UA Spec Desc Clean Catch Normal [facility] Comment on above: Performed By: #### 4 [id number] #### [facility] [address] [place] [address] ED Note-Physicianon 05-10-20 ED Note-Physician ED Note-Physician Basic Information Time Seen: Suyapa BRIONESBhupendra 05/07/2025 12:13 Chief Complaint Pt. presents to the ed with c/o ANDUJAR , Nause and vomiting that started two days ago. History of Present Illness 54-year-old female comes to the ED for evaluation of headache. She has a history of migraines. She states over the last 2 days she has had a headache similar to previous. Denies any new or unusual symptoms. No fevers. Headache not sudden onset. Does not describe the worst headache of her life. Complains of a left-sided headache with some nausea and vomiting. No treatments prior to arrival today. She has had no trauma. She is awake and alert. Review of Systems A 10 point review of systems is negative except as noted above. Medical and Surgical History: Reviewed and noted Social history: Lives at home Tobacco: Denies Physical Exam Vitals & Measurements T: 36.9 ???C(Oral) HR: 84(Peripheral) RR: 18 BP: 125/77 SpO2: 97% HT: 167.64 cm WT: 96.5 kg BMI: 34.34 Nurses notes and vital signs reviewed and patient is not hypoxic. General: The patient appears well and in no significant distress Patient is resting comfortably on the exam bed. Skin: Warm, dry, no pallor noted. Head: Atraumatic. No temporal tenderness. Neck: No JVD. Full range of motion with no evidence of meningismus. Eye: Normal conjunctiva. Pupils measure 4 mm bilaterally. Equal and briskly reactive. Extraocular motions are intact. No nystagmus. No evidence of papilledema. Ears, Nose, Mouth, and Throat: Moist mucous members. Cardiovascular: Strong distal pulses. Chest wall: Respiratory: Respirations are nonlabored. Back: Normal range of motion. Musculoskeletal: Normal ROM with no gross deformity. Gastrointestinal: Urological: Neurological: Awake and alert. No focal deficits. Follows commands. GCS 15. Psychiatric: Cooperative. Medical Decision Making Patient presents with acute on chronic migraine. Reports today symptoms similar to previous. She is awake and alert. No focal deficit. No evidence of meningismus. No history of trauma. She is medicated here with improvement. She is discharged home with PCP follow-up. Patient was encouraged to return to the ED if symptoms worsen or change. Assessment/Plan Headache (R51.9: Headache, unspecified) Orders: acetaminophen-oxycodone, 1 tab(s), Tab, Oral, Once, Stop date 05/07/25 12:47:00 EDT, STAT, Start date 05/07/25 12:47:00 EDT APAP/butalbital/caffeine, 1 tab(s), Oral, q4hr for headache, 15 tab(s), Refill(s) 0, [facility] #[id number], 167.6, cm, 05/07/25 12:10:00 EDT, Height/Length Dosing, 96.5, kg, 05/07/25 12:10:00 EDT, Weight Dosing diphenhydrAMINE, 25 mg = 0.5 mL, Injection, IntraMuscular, Once, Stop date 05/07/25 12:47:00 EDT, STAT, Start date 05/07/25 12:47:00 EDT, 05/07/25 12:47:00 EDT ketorolac, 60 mg = 2 mL, Injection, IntraMuscular, Once, Stop date 05/07/25 12:47:00 EDT, STAT, Start date 05/07/25 12:47:00 EDT, 05/07/25 12:47:00 EDT metoclopramide, 10 mg = 2 mL, Injection, IntraMuscular, Once, Stop date 05/07/25 12:47:00 EDT, STAT, Start date 05/07/25 12:47:00 EDT, 05/07/25 12:47:00 EDT Medications Administered Given diphenhydrAMINE 50 mg/mL Inj, 25 mg, IntraMuscular ketorolac 60 mg/2 mL Injection, 60 mg, IntraMuscular metoclopramide 5 mg/mL Inj, 10 mg, IntraMuscular Percocet 5 mg-325 mg oral tablet, 1 tab(s), Oral Disposition Plan Patient Discharge Condition Disposition: Discharged home Condition: Improved and stable Counseled: Patient and/or family were counseled to workup, results, treatment plan and follow-up recommendations Discharge Prescription List Prescriptions APAP/butalbital/caffeine 325 mg-50 mg-40 mg Tab, 1 tab(s), Oral, q4hr, PRN Follow-up With When Contact Information Elayne Adler In 3 days 05/10/2025 EDT [address] [place] [address] [phone] Business (1) Additional Instructions: Patient Education Chronic Migraine Headache Attestation I performed a substantive part of the MDM during the patient???s E/M visit. I personally made or approved the documented management plan and acknowledge its risk of complications. (Independent Interpretation) My (EKG/X-Ray/US/CT) interpretation as above. (Discussion) Management/test interpretation discussed with APC. This report was transcribed using voice recognition software. Every effort was made to ensure accuracy, however, inadvertently computerized director of retail analytics mistakes may be present. Appropriate healthcare PPE was used in evaluating this patient. Problem List/Past Medical History Ongoing Abdominal fullness Abdominal pain Acute constipation Allergic rhinitis Anemia B12 deficiency BMI 34.0-34.9,adult Bronchitis DDD (degenerative disc disease), lumbar DDD (degenerative disc disease), lumbosacral Discoloration of skin of toe Dizziness E-coli UTI Exposure to COVID-19 virus Fatigue Flank pain Former smoker Frequency of urination LALO (generalized (more content not included)... Normal [facility] Comment on above: Result Comment: Elec tronically Signed By: Bhupendra Dale PA-C\.br\Date and Time Signed: 05/07/25 14:11 EDT\.br\Electronically Co-Signed By: Todd Fleming DO\.br\Date and Time Co-Signed: 05/10/25 07:38 EDT ED Clinical Summaryon 2024 ED Clinical Summary ED Clinical Summary [address] [address] ED Clinical Summary Person Information Name: JANA CABALLERO [place] Age: 54 Years : 1970 Sex: Female Language: Syrian PCP: Elayne Sanchez Marital Status: Phone: [phone] MRN: Visit Id: Visit Reason: Vomiting; Nausea; Headache; ANDUJAR, n/v x's 2 days Speciality: Acuity: 3 Enc Type: Emergency Med Service: Emergency Arrival: 05/07/2025 11:57:54 Discharge: 05/07/2025 13:50:52 LOS: 000 01:53 Checkin: 05/07/2025 11:57:54 Checkout: 05/07/2025 13:50:52 Dispo Type: Home (Routine DC) EVENTS: Event Name Event Status Request Date/Time Start Date/Time Complete Date/Time Arrive Complete 05/07/2025 11:57:54 05/07/2025 11:57:54 05/07/2025 11:57:54 Document Home Meds Request 05/07/2025 11:57:54 Triage Complete 05/07/2025 11:57:54 05/07/2025 12:10:34 05/07/2025 12:10:34 Bed Assign Complete 05/07/2025 12:11:03 05/07/2025 12:11:03 05/07/2025 12:11:03 Dr Exam Complete 05/07/2025 12:11:03 05/07/2025 12:13:17 05/07/2025 12:13:17 RN Exam Complete 05/07/2025 12:11:03 05/07/2025 13:05:30 05/07/2025 13:05:30 Registration Complete 05/07/2025 12:13:17 05/07/2025 12:28:17 05/07/2025 12:28:17 Dr Exam Complete 05/07/2025 12:14:26 05/07/2025 12:14:26 05/07/2025 12:14:26 Reg Complete Request 05/07/2025 12:28:17 Reg Bed Request Complete 05/07/2025 12:28:17 05/07/2025 12:28:17 05/07/2025 12:28:17 Meds Admin Complete 05/07/2025 12:48:05 05/07/2025 12:58:52 Discharge Complete 05/07/2025 13:42:44 05/07/2025 13:50:57 05/07/2025 13:50:57 Transfer Complete 05/07/2025 13:50:57 05/07/2025 13:50:57 05/07/2025 13:50:57 ADDRESS: [address] [facility] [phone] PHYS DOC NOTES: MEDICAL INFORMATION: Prescriptions Given: Medications to Continue Taking That Have Changed [id number], [address] [place], [place] [id number], [phone] START: APAP/butalbital/caffeine (APAP/butalbital/caffeine 325 mg-50 mg-40 mg Tab) 1 Tablets By Mouth every 4 hours as needed for headache. Refills: 0. Other Medications START: APAP/butalbital/caffeine (APAP/butalbital/caffeine 325 mg-50 mg-40 mg Tab) 2 Tablets By Mouth every 6 hours as needed for headache. Refills: 0. Medications to Continue with No Changes Other Medications acetaminophen-oxycodone (Percocet 5 mg-325 mg oral tablet) 1 Tablets By Mouth every 6 hours as needed as needed for pain. Refills: 0. albuterol (albuterol HFA 90 mcg/inh MDI) 2 Puffs Inhalation every 4 hours as needed for wheezing. Refills: 3. calcium carbonate (calcium 500 mg tablets) 2 Tablets By Mouth 2 times a day. Refills: 3. cholecalciferol (cholecalciferol 50,000 intl units oral capsule) 1 Capsules By Mouth every 7 days. Refills: 1. ciclopirox topical (Ciclodan 8% topical solution) 1 Application Topical every day. Apply to great toe after shower , file nail, daily to affected area. Refills: 3. cyanocobalamin (Vitamin B12 1000 mcg Tab) 1 Tablets By Mouth every day. Refills: 0. cyclobenzaprine (cyclobenzaprine 10 mg Tab) 1 Tablets By Mouth 3 times a day as needed for spasm. Refills: 0. diclofenac topical (Voltaren Gel 1% Gel) 1 Application Topical 4 times a day as needed for pain. Refills: 0. dicyclomine (Bentyl 10 mg Cap) 1 Capsules By Mouth 4 times a day. escitalopram (escitalopram 10 mg Tab) 1 Tablets By Mouth every day. Refills: 3. ferrous sulfate (ferrous sulfate 325 mg Tab) 1 Tablets By Mouth every day. Refills: 3. ibuprofen (ibuprofen 600 mg Tab) 1 Tablets By Mouth every 8 hours as needed Pain/Fever. Refills: 0. lidocaine topical (lidocaine Top 5% film Patch) 1 Patches Topical every day. apply 12 hours on and 12 hours off daily. Refills: 0. multivitamin with minerals (One A Day Women's Complete oral tablet) 1 Tablets By Mouth every day. Refills: 0. mupirocin topical (mupirocin Top 2% Crm) 1 Application Topical 3 times a day. Refills: 0. naproxen (Naprosyn 500 mg Tab) 1 Tablets By Mouth 2 times a day. Refills: 0. ondansetron (ondansetron 4 mg Dis Tab) 1 Tablets By Mouth every 6 hours as needed Nausea/Vomiting. Refills: 0. ondansetron (Zofran ODT 4 mg Tab-Dis) 1 Tablets By Mouth every 6 hours. Refills: 0. pantoprazole (Pantoprazole [address] Tab) 1 Tablets By Mouth every day. Refills: 4. predniSONE (predniSONE 10 mg Tab) 1 Dose Separtor By Mouth As Directed. Take 3 tabs by mouth daily x5 days, then 2 tabs daily x5 days, then 1 tab daily x5 days.. Refills: 0. promethazine (promethazine 25 mg Tab) 1 Tablets By Mouth every 6 hours as needed as needed for nausea/vomiting. Refills: 0. tamsulosin (Flomax 0.4 mg Cap) 1 Capsules By Mouth every day. Refills: 0. PATIENT EDUCATION INFORMATION: Instructions: Chronic Migraine Headache Follow up: With: Address: When: Elayne Adler [address] [place] [address] [facility] [place], [place] [id number] [phone] Business (1) In 3 days 05/10/2025 DIAGNOSIS: Headache Normal [facility] ED Patient Summaryon 025 ED Patient Summary ED Patient Summary [address] [address] Patient Discharge Instructions Person Information Name: JANA CABALLERO Age: 54 Years Arrival Date: 05/07/2025 11:57:54 Discharge Diagnosis: Headache Primary Care Physician: Elayne Sanchez Provider Information Primary Provider: Todd Fleming DO Advanced Asset Management Analyst:Bhupendra Dale PA-C The exam and treatment you received in the Emergency Department were for an urgent problem and are not intended as complete care. It is important that you follow up with a doctor, nurse practitioner, or physician???s accounting administrative assistant for ongoing care. If your symptoms become worse or you do not improve as expected and you are unable to reach your usual health care provider, you should return to the Emergency Department. We are available 24 hours a day. JANA CABALLERO has been given the following list of patient education materials, prescriptions and follow-up instructions: Follow-up Instructions: With: Address: When: Siddhartha Marin [place], [place] [id number] [phone] Business (1) In 3 days 05/10/2025 In the event that this physician does not participate in your insurance network, please consult with your insurance company to find a nearby participating provider. Patient Education Materials: Chronic Migraine Headache A MESSAGE TO ALL PATIENTS REGARDING OPIOIDS PRESCRIPTION OPIOIDS: WHAT YOU NEED TO KNOW Prescription opioids can be used to help relieve bnxmucmc-jm-osnpof pain and are often prescribed following a surgery or injury, or for certain health conditions. These medications can be an important part of the treatment but also come with serious risks. It is important to work with your healthcare provider to make sure you are getting the safest, most effective care. WHAT ARE THE RISKS AND SIDE EFFECTS OF OPIOID USE? Prescription opioids carry serious risks of addiction and overdose, especially with prolonged use. An opioid overdose, often marked by slowed breathing, can cause sudden . The use of prescription opioids can have a number of side effects as well, even when taken as directed: ??? Tolerance???meaning you might need to take more of the medication for the same pain relief ??? Physical dependence???meaning you have symptoms of withdrawal when a medication is stopped ??? Increased sensitivity to pain ??? Constipation ??? Nausea, vomiting, and dry mouth ??? Sleepiness and dizziness ??? Confusion ??? Depression ??? Low levels of testosterone that can result in lower sex drive, energy, and strength ??? Itching and sweating RISKS ARE GREATER WITH: ??? History of drug misuse, substance use disorder, or overdose ??? Mental health conditions (such as depression or anxiety) ??? Sleep apnea ??? Older age (65 years and older) ??? Avoid alcohol while taking prescription opioids. Also, unless specifically advised by your health care provider, medications to avoid include: ??? Benzodiazepines (such as Xanax or Valium) ??? Muscle relaxants (such as Soma or Flexeril) ??? Hypnotics (such as Ambien or Lunesta) ??? Other prescription opioids KNOW YOUR OPTIONS Talk to your health care provider about ways to manage your pain that don???t involve prescription opioids. Some of these options may actually work better and have fewer risks and side effects. Options may include: ??? Pain relievers such as acetaminophen, ibuprofen, and naproxen ??? Some medication that are also used for depression or seizures ??? Physical therapy and exercise ??? Cognitive behavioral therapy, a psychological, goal-directed approach, in which patients learn how to modify physical, behavioral, and emotional triggers of pain and stress. IF YOU ARE PRESCRIBED OPIOIDS FOR PAIN: ??? Never take opioids in greater amounts or more often than prescribed. ??? Follow up with your primary health care provider. o Work together to create a plan on how to manage your pain. o Talk about ways to help manage your pain that don???t involve prescription opioids. o Talk about any and all concerns and side effects. ??? Help prevent misuse and abuse o Never sell or share prescription opioids. o Never use another person???s prescription opioids. ??? Store prescription opioids in a secure place and out of reach of others (this may include visitors, children, friends, and family). ??? Safely dispose of unused prescription opioids: Find your community drug take-back program or your pharmacy mail-back program, or flush them down the toilet, following guidance from the Food and Drug Administration (www.fda.gov/Drugs/Resource sForYou). ??? Visit www.cdc.gov/drugoverdose to learn about the risks of opioids abuse and overdose. ??? If you believe you may be struggling with addiction, tell your health neonatal critical care nurse and (more content not included)... Normal [facility] ED Clinical Summaryon 2024 ED Clinical Summary ED Clinical Summary [address] [address] ED Clinical Summary Person Information Name: JANA CABALLERO/[place]_Luis Alfredo Age: 54 Years : 1970 Sex: Female Language: Syrian PCP: Elayne Sanchez Marital Status: Phone: [phone] Visit Id: Visit Reason: Flank pain; Abscess - simple; Hip pain-swelling; PELVIC PAIN Speciality: Acuity: 3 Enc Type: Emergency Med Service: Emergency Arrival: 04/15/2025 01:03:02 Discharge: 04/15/2025 02:11:01 LOS: 000 01:08 Checkin: 04/15/2025 01:03:02 Checkout: 04/15/2025 02:11:01 Dispo Type: Home (Routine DC) EVENTS: Event Name Event Status Request Date/Time Start Date/Time Complete Date/Time Arrive Complete 04/15/2025 01:03:02 04/15/2025 01:03:02 04/15/2025 01:03:02 Document Home Meds Request 04/15/2025 01:03:02 Triage Complete 04/15/2025 01:03:02 04/15/2025 01:09:39 04/15/2025 01:09:39 Registration Complete 04/15/2025 01:06:25 04/15/2025 01:06:25 04/15/2025 01:06:25 Reg Complete Request 04/15/2025 01:06:25 Reg Bed Request Complete 04/15/2025 01:06:25 04/15/2025 01:06:25 04/15/2025 01:06:25 Bed Assign Complete 04/15/2025 01:12:35 04/15/2025 01:12:35 04/15/2025 01:12:35 Dr Exam Complete 04/15/2025 01:12:35 04/15/2025 01:27:39 04/15/2025 01:27:39 RN Exam Complete 04/15/2025 01:12:35 04/15/2025 01:20:34 04/15/2025 01:20:34 Registration Request 04/15/2025 01:27:39 Meds Admin Complete 04/15/2025 01:39:44 04/15/2025 01:56:22 Meds Admin Complete 04/15/2025 01:43:41 04/15/2025 01:56:22 Discharge Complete 04/15/2025 01:58:40 04/15/2025 02:11:08 04/15/2025 02:11:08 Transfer Complete 04/15/2025 02:11:08 04/15/2025 02:11:08 04/15/2025 02:11:08 ADDRESS: [address] [facility] [phone] PHYS DOC NOTES: MEDICAL INFORMATION: Prescriptions Given: New Medications [id number], [address] [place] [phone], [phone] mupirocin topical (mupirocin Top 2% Crm) 1 Application Topical 3 times a day. Refills: 0. oxycodone (oxyCODONE 5 mg Tab) 1 Tablets By Mouth every 6 hours for 3 Days. Refills: 0. Medications to Continue with No Changes Other Medications acetaminophen-oxycodone (Percocet 5 mg-325 mg oral tablet) 1 Tablets By Mouth every 6 hours as needed as needed for pain. Refills: 0. albuterol (albuterol HFA 90 mcg/inh MDI) 2 Puffs Inhalation every 4 hours as needed for wheezing. Refills: 3. APAP/butalbital/caffeine (APAP/butalbital/caffeine 325 mg-50 mg-40 mg Tab) 2 Tablets By Mouth every 6 hours as needed for headache. Refills: 0. calcium carbonate (calcium 500 mg tablets) 2 Tablets By Mouth 2 times a day. Refills: 3. cholecalciferol (cholecalciferol 50,000 intl units oral capsule) 1 Capsules By Mouth every 7 days. Refills: 1. ciclopirox topical (Ciclodan 8% topical solution) 1 Application Topical every day. Apply to great toe after shower , file nail, daily to affected area. Refills: 3. cyanocobalamin (Vitamin B12 1000 mcg Tab) 1 Tablets By Mouth every day. Refills: 0. cyclobenzaprine (cyclobenzaprine 10 mg Tab) 1 Tablets By Mouth 3 times a day as needed for spasm. Refills: 0. diclofenac topical (Voltaren Gel 1% Gel) 1 Application Topical 4 times a day as needed for pain. Refills: 0. escitalopram (escitalopram 10 mg Tab) 1 Tablets By Mouth every day. Refills: 3. ferrous sulfate (ferrous sulfate 325 mg Tab) 1 Tablets By Mouth every day. Refills: 3. ibuprofen (ibuprofen 600 mg Tab) 1 Tablets By Mouth every 8 hours as needed Pain/Fever. Refills: 0. lidocaine topical (lidocaine Top 5% film Patch) 1 Patches Topical every day. apply 12 hours on and 12 hours off daily. Refills: 0. multivitamin with minerals (One A Day Women's Complete oral tablet) 1 Tablets By Mouth every day. Refills: 0. naproxen (Naprosyn 500 mg Tab) 1 Tablets By Mouth 2 times a day. Refills: 0. ondansetron (ondansetron 4 mg Dis Tab) 1 Tablets By Mouth every 6 hours as needed Nausea/Vomiting. Refills: 0. ondansetron (Zofran ODT 4 mg Tab-Dis) 1 Tablets By Mouth every 6 hours. Refills: 0. pantoprazole (Pantoprazole [address] Tab) 1 Tablets By Mouth every day. Refills: 4. predniSONE (predniSONE 10 mg Tab) 1 Dose Separtor By Mouth As Directed. Take 3 tabs by mouth daily x5 days, then 2 tabs daily x5 days, then 1 tab daily x5 days.. Refills: 0. promethazine (promethazine 25 mg Tab) 1 Tablets By Mouth every 6 hours as needed as needed for nausea/vomiting. Refills: 0. tamsulosin (Flomax 0.4 mg Cap) 1 Capsules By Mouth every day. Refills: 0. PATIENT EDUCATION INFORMATION: Instructions: Chronic Pain, Adult Follow up: With: Address: When: Elayne Vitor In 3 days DIAGNOSIS: 1:Shingles; 2:Chronic hip pain; Other chronic pain Normal [facility] ED Note-Physicianon 04-15-20 ED Note-Physician ED Note-Physician Basic Information Time Seen: Mahesh Polo DO 04/15/2025 01:27 Chief Complaint complains of left hip/flank pain states taking otc meds without relief. also has sore to abd. History of Present Illness Patient is a 54-year-old female presenting for evaluation of left-sided hip pain groin pain and sciatica pain. Patient has had chronic left pelvic fracture, she fell back in the winter recently had CT imaging beginning of March that showed her chronic fractures there she has had pain here ever since. She is taking Motrin and Tylenol for this. She denies any recent trauma or falls. Denies any loss of bowel sensation urinary retention or fecal incontinence. Sometimes the pain does shoot down the back of her leg. She does admit to history of sciatica. Also concerned about lesion on her abdomen. She describes some vesicles there about a week ago and now she has a ulcerative lesion there which has scabbed over. He says she saw a doctor and was told that she had a viral infection. She did not take any medication for this. Review of Systems Constitutional: no fever, no chills, no sweats, no weakness HEENT: no sore throat, ear pain, sinus congestion Respiratory: no SOB, no cough, no orthopnea, no wheezing Cardiovascular: no chest pain, no palpitations, no edema Abdomen: no pain, distension, no n/v or diarrhea Extremities: no swelling. Additional ROS info: Except as noted above in the above review of systems and in the history of present illness all other systems have been reviewed and are negative or noncontributory Physical Exam Vitals & Measurements T: 36.8 ???C(Oral) HR: 71(Peripheral) RR: 16 BP: 124/63 SpO2: 96% HT: 170.2 cm WT: 96.5 kg BMI: 33.31 Constitutional: No acute distress, nontoxic, non ill appearing Heart: Regular rate and rhythm without murmurs, gallops or rubs Lungs: clear to auscultation bilaterally without wheezes, rales or rhonchi Abdomen: soft, nontender, nondistended abdomen Extremities: warm and dry bilaterally without pitting edema. Patient has reproducible pain with hip flexion and internal/external rotation. No bone deformities over the left lower extremity on palpation. No limb length discrepancy. Skin: There is a dime sized scabbed over ulcerative lesion left upper quadrant patient's abdomen. Minimal surrounding erythema. No fluctuance. No crepitance. Neurological: awake, alert answers questions appropriately Medical Decision Making Patient given IM shot of Toradol and oxycodone for pain. Patient had CAT scan abdomen pelvis done on the seventh which showed chronic left superior and inferior pubic rami fractures chronic sacral and iliac body fractures. This is a source of her pain. The patient is recovering from shingles. She can apply mupirocin ointment to the area, area has crusted at this point, no need for antivirals. Reviewed the PDMP, no recent narcotic prescriptions were filled. Scribed short course of oxycodone for for severe pain. She can take Motrin Tylenol as needed for mild to moderate pain. Assessment/Plan 1. Shingles (B02.9: Zoster without complications) 2. Chronic hip pain (M25.559: Pain in unspecified hip) Other chronic pain (G89.29: Other chronic pain) Orders: ketorolac, 15 mg = 1 mL, Injection, IntraMuscular, Once, Stop date 04/15/25 1:42:00 EDT, STAT, Start date 04/15/25 1:42:00 EDT, 04/15/25 1:42:00 EDT oxycodone, 5 mg = 1 tab(s), Tab, Oral, Once, Stop date 04/15/25 1:39:00 EDT, STAT, Start date 04/15/25 1:39:00 EDT, 04/15/25 1:39:00 EDT Disposition Plan Discharge Prescription List Prescriptions No active prescription medications Follow-up No qualifying data available Problem List/Past Medical History Ongoing Abdominal fullness Abdominal pain Acute constipation Allergic rhinitis Anemia B12 deficiency BMI 34.0-34.9,adult Bronchitis DDD (degenerative disc disease), lumbar DDD (degenerative disc disease), lumbosacral Discoloration of skin of toe Dizziness E-coli UTI Exposure to COVID-19 virus Fatigue Flank pain Former smoker Frequency of urination LALO (generalized anxiety disorder) Gastroesophageal reflux disease Hematuria Hiatal hernia History of cervical cancer History of kidney stones HLD (hyperlipidemia) Hydronephrosis with urinary obstruction due to ureteral calculus Hypocalcemia Iron deficiency anemia kidney stones Left-sided low back pain with sciatica Malignant tumor of cervix Mild recurrent major depression Nausea in adult Nicotine dependence, cigarettes, in remission Nocturia Obesity Onychia, toe Onychomycosis Osteoarthritis of left hip Other urethral stricture, female Paresthesia Prediabetes Recurrent headache Renal calculus, right Sciatic pain Scoliosis Screening for colon cancer Screening for lipid disorders Smoker Vertigo Vitamin D deficiency Wellness examination Historical Anemia due to unknown mechanism Cervical cancer Chemotherapy Herni (more content not included)... Normal [facility] Comment on above: Result Comment: Elec tronically Signed By: Mahesh Polo DO\.br\Date and Time Signed: 04/15/25 01:56 EDT ED Patient Summaryon 025 ED Patient Summary ED Patient Summary [place] [id number] Patient Discharge Instructions Person Information Name: JANA CABALLERO Age: 54 Years Arrival Date: 04/15/2025 01:03:02 Discharge Diagnosis: 1:Shingles; 2:Chronic hip pain; Other chronic pain Primary Care Physician: Elayne Sanchez Provider Information Primary Provider: Mahesh Polo DO Advanced Asset Management Analyst:None The exam and treatment you received in the Emergency Department were for an urgent problem and are not intended as complete care. It is important that you follow up with a doctor, nurse practitioner, or physician???s accounting administrative assistant for ongoing care. If your symptoms become worse or you do not improve as expected and you are unable to reach your usual health care provider, you should return to the Emergency Department. We are available 24 hours a day. JANA CABALLERO has been given the following list of patient education materials, prescriptions and follow-up instructions: Follow-up Instructions: With: Address: When: Elayne Adler In 3 days In the event that this physician does not participate in your insurance network, please consult with your insurance company to find a nearby participating provider. Patient Education Materials: Chronic Pain, Adult A MESSAGE TO ALL PATIENTS REGARDING OPIOIDS PRESCRIPTION OPIOIDS: WHAT YOU NEED TO KNOW Prescription opioids can be used to help relieve rjqlocwf-vk-wtjafh pain and are often prescribed following a surgery or injury, or for certain health conditions. These medications can be an important part of the treatment but also come with serious risks. It is important to work with your healthcare provider to make sure you are getting the safest, most effective care. WHAT ARE THE RISKS AND SIDE EFFECTS OF OPIOID USE? Prescription opioids carry serious risks of addiction and overdose, especially with prolonged use. An opioid overdose, often marked by slowed breathing, can cause sudden . The use of prescription opioids can have a number of side effects as well, even when taken as directed: ??? Tolerance???meaning you might need to take more of the medication for the same pain relief ??? Physical dependence???meaning you have symptoms of withdrawal when a medication is stopped ??? Increased sensitivity to pain ??? Constipation ??? Nausea, vomiting, and dry mouth ??? Sleepiness and dizziness ??? Confusion ??? Depression ??? Low levels of testosterone that can result in lower sex drive, energy, and strength ??? Itching and sweating RISKS ARE GREATER WITH: ??? History of drug misuse, substance use disorder, or overdose ??? Mental health conditions (such as depression or anxiety) ??? Sleep apnea ??? Older age (65 years and older) ??? Avoid alcohol while taking prescription opioids. Also, unless specifically advised by your health care provider, medications to avoid include: ??? Benzodiazepines (such as Xanax or Valium) ??? Muscle relaxants (such as Soma or Flexeril) ??? Hypnotics (such as Ambien or Lunesta) ??? Other prescription opioids KNOW YOUR OPTIONS Talk to your health care provider about ways to manage your pain that don???t involve prescription opioids. Some of these options may actually work better and have fewer risks and side effects. Options may include: ??? Pain relievers such as acetaminophen, ibuprofen, and naproxen ??? Some medication that are also used for depression or seizures ??? Physical therapy and exercise ??? Cognitive behavioral therapy, a psychological, goal-directed approach, in which patients learn how to modify physical, behavioral, and emotional triggers of pain and stress. IF YOU ARE PRESCRIBED OPIOIDS FOR PAIN: ??? Never take opioids in greater amounts or more often than prescribed. ??? Follow up with your primary health care provider. o Work together to create a plan on how to manage your pain. o Talk about ways to help manage your pain that don???t involve prescription opioids. o Talk about any and all concerns and side effects. ??? Help prevent misuse and abuse o Never sell or share prescription opioids. o Never use another person???s prescription opioids. ??? Store prescription opioids in a secure place and out of reach of others (this may include visitors, children, friends, and family). ??? Safely dispose of unused prescription opioids: Find your community drug take-back program or your pharmacy mail-back program, or flush them down the toilet, following guidance from the Food and Drug Administration (www.fda.gov/Drugs/Resource sForYou). ??? Visit www.cdc.gov/drugoverdose to learn about the risks of opioids abuse and overdose. ??? If you believe you may be struggling with addiction, tell your health neonatal critical care nurse and ask for guidance or call [facility] [employer] [facility] at (more content not included)... Normal [facility] Family Medicine Office/Clini c Noteon 04-03-2025 Family Medicine Office/Clinic Note Family Medicine Office/Clinic Note Chief Complaint ER Follow Up HPI Staff Patient here today for ER follow up. Seen on: 04/01 Referral to [facility] and Leodan Pittman given to patient. Medical Decision Making Patient is a 54-year-old female presents today for evaluation of her left upper quadrant abdominal pain with nausea and diarrhea. Started develop diarrhea yesterday and then the abdominal pain with nausea and vomiting started today. On exam patient is afebrile and nontoxic-appearing. SpO2 95% on room air. She is not tachycardic or hypotensive. Moderate left upper quadrant abdominal tenderness extending towards the left lower quadrant. CTA to bilateral lung tejada. RRR. Patient is given initial dose of Bentyl and Zofran and workup was obtained. Labs are WNL including WBC. UA negative for UTI. EKG demonstrates sinus bradycardia with sinus arrhythmia. Troponin WNL. CT of the abdomen and pelvis interpreted by stat radiology demonstrates mild wall thickening of the left colon which may represent underdistention versus colitis. No bowel obstruction. Chronic fractures of left superior and inferior pubic rami with some new mild diastases and comminution of fracture fragments. Chronic fracture of the right sacral poncho. Chronic fracture of left ilium extending to the sacroiliac joint. Ventral abdominal and umbilical hernias containing fat. Small left inguinal hernia containing fat. Similar appearing chronic right renal subcapsular hematoma measuring 4.8 cm. Collection results and some compression and deformity of right kidney. Nonobstructive right renal stones. Diverticulosis. Hepatomegaly. Patient signs symptoms are likely secondary to colitis seen on CT. She did improve with Bentyl and Zofran initially but then had some repeat crampy abdominal pain with nausea and vomiting and was therefore given a dose of metoclopramide and Toradol. She will be discharged home with close follow-up with GI and I provided her with Dr. Rodriguez for this given findings of colitis. Given the chronic pelvic fractures I will provide her with Dr. Pittman orthopedics to follow-up with. We discussed if she has new or worsening symptoms she should promptly return to the ED for evaluation. Return to ED precautions were reviewed with the patient at length. History of Present Illness I have reviewed and discussed the HPI (staff) with the patient today. Information was verified and is correct. Additional information provided if needed. Pt reports to office today for ER follow up visit. She was seen in [facility] [place]/01 for LUQ pain, nausea and diarrhea. See ER note above. She was referred to GI and Ortho for further evaluation. He CT abd pelvis did show mild wall thickening of the colon, diverticulosis, along with a chronic fx of the L ilium. Pt reports that she had a fall last year and has been dealing with L hip and back pain ever since then. Her GI symptoms were ultimately relieved by metoclopramide and toradol. She was discharged home with bentyl, zofran, and promethazine. Today she reports feeling somewhat better however she is still experiencing some L sided abd pain and L hip pain. She denies any further n/v/d. No fevers/chills, chest pain, shortness of breath, heart palpitations, headaches, dizziness, syncope, or black/tarry stools. Review of Systems PHQ Score Initial Depression Screen Score: 0 SCORE ROS negative unless otherwise stated in HPI. Physical Exam Vitals & Measurements HR: 67(Peripheral) RR: 18 BP: 136/86 SpO2: 96% HT: 170.2 cm HT: 67 in WT: 97.8 kg WT: 215.612 lb BMI: 33.76 PHYSICAL EXAM General: Well developed, well nourished, no apparent distress Head:Normocephalic, atraumatic Eyes:EOMI, sclera clear Nose:No deformity, discharge, inflammation or lesions Mouth:Mucosa moist. Normal oropharynx and posterior pharynx without lesions or exudate. Tongue normal. Neck:No bruit, symmetric Lungs:Lungs clear to auscultation Cardio:Regular rate and rhythm with no murmur Pulses:Pulses present in all four extremities Abdomen:Normal bowel sounds, non tender, no masses : not evaluated Musculoskeletal:Normal ROM of extremities, self ambulating Neuro:grossly normal Mental Status: Alert and cooperative with appropriate mood and affect Assessment/Plan 1. Abdominal pain (R10.9: Unspecified abdominal pain) Acute, improving. Follow up with GI for further evaluation- Dr Rodriguez. Pt is aware of red flags/when to report to ER for emergency medical evaluation. Stay well hydrated and eat small, frequent meals as tolerated. Follow up if symptoms persist or worsen. 2. Colitis (K52.9: Noninfective gastroenteritis and colitis, unspecified) Stable, pt to follow up with GI for further evaluation. Pt is aware of red flags/when to report to ER for emergency medical evaluation. Follow up as needed. 3. Pelvic fracture (S32.9XXA: Fracture of unspecified parts of lumbosacral spine and pelvis, initial encounter for closed fracture) Acute, referral to ortho for further evaluation- Dr Pittman. Pt is aw (more content not included)... Normal [facility] Comment on above: Result Comment: Elec tronically Signed By: Elayne Sanchez\.br\Date and Time Signed: 04/03/25 09:21 EDT Ambulatory Visit Summaryon 0 04-02-2025 Ambulatory Visit Summary Ambulatory Visit Summary JANA CABALLERO :1970 Visit Date:04/02/2025 Ambulatory Visit Instructions Your Care Team Attending Physician - Elayne Sanchez Primary Care Physician - Elayne Sanchez This Is Your Medications List Contact prescribing physician if questions or concerns APAP/butalbital/caffeine (APAP/butalbital/caffeine 325 mg-50 mg-40 mg Tab) acetaminophen-oxycodone (Percocet 5 mg-325 mg oral tablet) albuterol (albuterol HFA 90 mcg/inh MDI) calcium carbonate (calcium 500 mg tablets) cholecalciferol (cholecalciferol 50,000 intl units oral capsule) ciclopirox topical (Ciclodan 8% topical solution) cyanocobalamin (Vitamin B12 1000 mcg Tab) cyclobenzaprine (cyclobenzaprine 10 mg Tab) diclofenac topical (Voltaren Gel 1% Gel) dicyclomine (Bentyl 10 mg Cap) escitalopram (escitalopram 10 mg Tab) ferrous sulfate (ferrous sulfate 325 mg Tab) ibuprofen (ibuprofen 600 mg Tab) lidocaine topical (lidocaine Top 5% film Patch) multivitamin with minerals (One A Day Women's Complete oral tablet) naproxen (Naprosyn 500 mg Tab) ondansetron (Zofran ODT 4 mg Tab-Dis) ondansetron (ondansetron 4 mg Dis Tab) pantoprazole (Pantoprazole [address] Tab) predniSONE (predniSONE 10 mg Tab) promethazine (promethazine 25 mg Tab) tamsulosin (Flomax 0.4 mg Cap) Procedures Performed Cystoscopy (03/07/2020), :LEEP, exam under anesthesia (10/06/2016), hernia repair (11/25/2015), incisional hernia repair (05/13/2015), (2003), Tubal ligation (2003), Cancer cervix screening - up-to-date, lymph nodes removed from abdomen, T&A, urethra dialation. Discharge Vitals Heart Rate (Peripheral) 96 Respiratory Rate 18 Blood Pressure 136/86 Height 170.2 cm Height 67 in Weight 97.8 kg Weight 215.612 lb BMI 33.76 Medications What How Much When Why Instructions Unchanged acetaminophen-oxycodone (Percocet 5 mg-325 mg oral tablet) 1 Tablets By Mouth Every 6 hours as needed for as needed for pain Strain of left groin Contact prescribing physician if questions or concerns Unchanged albuterol (albuterol HFA 90 mcg/ inh MDI) 2 Puffs Inhalation Every 4 hours as needed for for wheezing Smoking Contact prescribing physician if questions or concerns Unchanged APAP/ butalbital/ caffeine (APAP/ butalbital/ caffeine 325 mg-50 mg-40 mg Tab) 2 Tablets By Mouth Every 6 hours as needed for for headache Contact prescribing physician if questions or concerns Unchanged calcium carbonate (calcium 500 mg tablets) 2 Tablets By Mouth 2 times a day Contact prescribing physician if questions or concerns Unchanged cholecalciferol (cholecalciferol 50,000 intl units oral capsule) 1 Capsules By Mouth Every 7 days Vitamin D deficiency Contact prescribing physician if questions or concerns Unchanged ciclopirox topical (Ciclodan 8% topical solution) 1 Application Topical Every day Onychomycosis Apply to great toe after shower , file nail, daily to affected area Contact prescribing physician if questions or concerns Unchanged cyanocobalamin (Vitamin B12 1000 mcg Tab) 1 Tablets By Mouth Every day B12 deficiency Contact prescribing physician if questions or concerns Unchanged cyclobenzaprine (cyclobenzaprine 10 mg Tab) 1 Tablets By Mouth 3 times a day as needed for for spasm Contact prescribing physician if questions or concerns Unchanged diclofenac topical (Voltaren Gel 1% Gel) 1 Application Topical 4 times a day as needed for for pain Contact prescribing physician if questions or concerns Unchanged dicyclomine (Bentyl 10 mg Cap) 1 Capsules By Mouth 4 times a day Duration: 7 Days Contact prescribing physician if questions or concerns Unchanged escitalopram (escitalopram 10 mg Tab) 1 Tablets By Mouth Every day Generalized anxiety disorder Contact prescribing physician if questions or concerns Unchanged ferrous sulfate (ferrous sulfate 325 mg Tab) 1 Tablets By Mouth Every day Anemia Contact prescribing physician if questions or concerns Unchanged ibuprofen (ibuprofen 600 mg Tab) 1 Tablets By Mouth Every 8 hours as needed for Pain/Fever Contact prescribing physician if questions or concerns Unchanged lidocaine topical (lidocaine Top 5% film Patch) 1 Patches Topical Every day apply 12 hours on and 12 hours off daily Contact prescribing physician if questions or concerns Unchanged multivitamin with minerals (One A Day Women's Complete oral tablet) 1 Tablets By Mouth Every day Wellness examination Contact prescribing physician if questions or concerns Unchanged naproxen (Naprosyn 500 mg Tab) 1 Tablets By Mouth 2 times a day Contact prescribing physician if questions or concerns Unchanged ondansetron (ondansetron 4 mg Dis Tab) 1 Tablets By Mouth Every 6 hours as needed for Nausea/Vomiting Contact prescribing physician if questions or concerns Unchanged ondansetron (Zofran ODT 4 mg Tab-Dis) 1 Tablets By Mouth Every 6 hours Contact prescribing physician if questions or concerns Unchanged p (more content not included)... Normal [facility] CT Abdomen/Pelvis w/ Contras ton 04-02-2025 CT Abdomen/Pelvis w/ Contrast Exam Date/Time: 04/01/2025 20:24 EDT Reason for Exam: Pain Report IMPRESSION: NO ACUTE INTRA-ABDOMINAL PROCESS IDENTIFIED. CHRONIC INCOMPLETELY UNITED LEFT PUBIC RAMUS FRACTURES. NO OTHER SIGNIFICANT CHANGES FROM 10/14/2024 IDENTIFIED. EXAM: CT Abdomen/Pelvis w/ Contrast DATE: 04/01/2025 8:07 PM CLINICAL HISTORY: Pain. Technologist Comments: left-sided abdomen pain that started in lower ribs and down to pelvis and nausea since this morning. Diarrhea yesterday. Hx of hiatal hernia, tubal COMPARISON: 10/14/2024. TECHNIQUE: Spiral imaging was obtained of the abdomen and pelvis after the uneventful infusion of intravenous contrast. All CT scans at this facility use dose modulation, iterative reconstruction, and/or weight based dosing when appropriate to reduce radiation dose to as low as reasonably achievable. Unless otherwise stated, incidental findings identified in this report do not require routine follow-up imaging. FINDINGS: Liver: Mildly enlarged with developmental elongation of the right lobe. No suspicious mass or lesion. Biliary: The gallbladder is unremarkable. No abnormal biliary ductal dilatation. Pancreas: No suspicious mass, organized fluid collection, surrounding inflammation, or abnormal pancreatic ductal dilatation. Spleen: Unremarkable. Adrenals: Unremarkable. Kidneys: Chronic small partially calcified right subcapsular hematoma moderately deforming the mid right kidney and several small obstructing predominantly upper pole right renal calculi. No hydronephrosis, significant urinary tract calculi, or suspicious mass. GI tract: Mild wall thickening versus under distention of the splenic flexure and descending colon. Mild to moderate predominantly sigmoid diverticulosis. No abnormal bowel dilatation, surrounding inflammatory changes, or other findings of concern identified.. The appendix is not confidently identified, without findings to suggest acute appendicitis. Lymph nodes: No pathologically enlarged lymph nodes. Vasculature: No aneurysm or dissection. Mild calcified plaquing. Report Mesentery/peritoneum/retrop eritoneum: No ascites, organized fluid collection, inflammatory changes, or suspicious mass. Pelvis: The urinary bladder is unremarkable. Previous hysterectomy. 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 Chronic sacral and left iliac body fractures with sclerosis, unchanged. Approximately 5 to 6 mm fat-containing ventral hernia superior to the umbilicus, unchanged. Lower thorax: Noncontributory. GFR (mL/min/1/73m2) age Contrast: Isovue 300 Contrast amount in ml's: 100.00 Ordering Provider: Johnny Cole FINAL REPORT Dictated: 04/02/2025 11:23 am Jean Claude Traylor MD Signed (Electronic Signature): 04/02/2025 11:23 am Signed by: Jean Claude Traylor MD Transcribed by: JG Technologist: MICHA Hood [facility] ED Note-Physicianon 04-02-20 ED Note-Physician ED Note-Physician Basic Information Time Seen: Johnny Cole PA-C 04/01/2025 19:35 Chief Complaint LUQ pain and nausea since this morning. Diarrhea yesterday. Hx of hiatal hernia. History of Present Illness Patient is a 54-year-old female presents today for evaluation of her left upper quadrant abdominal pain with nausea and diarrhea. Patient states that she started to develop diarrhea yesterday. She started to have nausea and vomiting today with moderate to severe left upper quadrant abdominal pain. Denies any inciting injury or event. She does note that she has a history of kidney stones but this feels slightly different. She has a history of hiatal hernia and she is unsure if this is the exact cause of her symptoms. Denies any chest pain or shortness of breath. Review of Systems No other aggravating or relieving factors no other associated symptoms no other prior treatments or complaints. Family: Reviewed and noncontributory Social: lives at home Review of systems negative unless otherwise specified in the HPI. Physical Exam Vitals & Measurements T: 37 ???C(Oral) HR: 74(Peripheral) RR: 20 BP: 152/78 SpO2: 95% HT: 170.2 cm WT: 96 kg BMI: 33.14 General: The patient appears well and in no apparent distress. Patient is resting comfortably on cart. Skin: Warm, dry, no pallor noted. Head: Normocephalic, atraumatic Neck: No JVD Eye: PERRLA, EOMI ENT: Moist mucus membranes Cardiovascular: Regular rate and rhythm. Normal peripheral perfusion Respiratory: CTA bilaterally. No respiratory distress no accessory muscle use no obvious audible wheezing Chest Wall: no deformity Musculoskeletal: normal ROM, no deformity, no swelling GI: Soft no obvious distention. No rebound or rigidity. No guarding. Moderate left upper quadrant abdominal tenderness extending towards the left lower quadrant. Neurological: A&O moves all extremities equal strength and symmetry Psychiatric: Cooperative and appropriate Medical Decision Making Patient is a 54-year-old female presents today for evaluation of her left upper quadrant abdominal pain with nausea and diarrhea. Started develop diarrhea yesterday and then the abdominal pain with nausea and vomiting started today. On exam patient is afebrile and nontoxic-appearing. SpO2 95% on room air. She is not tachycardic or hypotensive. Moderate left upper quadrant abdominal tenderness extending towards the left lower quadrant. CTA to bilateral lung tejada. RRR. Patient is given initial dose of Bentyl and Zofran and workup was obtained. Labs are WNL including WBC. UA negative for UTI. EKG demonstrates sinus bradycardia with sinus arrhythmia. Troponin WNL. CT of the abdomen and pelvis interpreted by stat radiology demonstrates mild wall thickening of the left colon which may represent underdistention versus colitis. No bowel obstruction. Chronic fractures of left superior and inferior pubic rami with some new mild diastases and comminution of fracture fragments. Chronic fracture of the right sacral poncho. Chronic fracture of left ilium extending to the sacroiliac joint. Ventral abdominal and umbilical hernias containing fat. Small left inguinal hernia containing fat. Similar appearing chronic right renal subcapsular hematoma measuring 4.8 cm. Collection results and some compression and deformity of right kidney. Nonobstructive right renal stones. Diverticulosis. Hepatomegaly. Patient signs symptoms are likely secondary to colitis seen on CT. She did improve with Bentyl and Zofran initially but then had some repeat crampy abdominal pain with nausea and vomiting and was therefore given a dose of metoclopramide and Toradol. She will be discharged home with close follow-up with GI and I provided her with Dr. Rodriguez for this given findings of colitis. Given the chronic pelvic fractures I will provide her with Dr. Pittman orthopedics to follow-up with. We discussed if she has new or worsening symptoms she should promptly return to the ED for evaluation. Return to ED precautions were reviewed with the patient at length. Assessment/Plan Colitis (K52.9: Noninfective gastroenteritis and colitis, unspecified) Diarrhea (R19.7: Diarrhea, unspecified) Nausea & vomiting (R11.2: Nausea with vomiting, unspecified) Pelvic fracture (S32.9XXA: Fracture of unspecified parts of lumbosacral spine and pelvis, initial encounter for closed fracture) Orders: dicyclomine, 20 mg = 2 mL, Injection, IntraMuscular, Once, Stop date 04/01/25 19:48:00 EDT, STAT, Start date 04/01/25 19:48:00 EDT, 04/01/25 19:48:00 EDT dicyclomine, 10 mg = 1 cap(s), Oral, QID, X 7 day(s), # 28 cap(s), Refills(s) 0, Pharmacy: [id number], 170.2, cm, 04/01/25 18:15:00 EDT, Height/Length Dosing, 96, kg, 04/01/25 18:15:00 EDT, Weight Dosing ketorolac, 30 mg = 1 mL, Injection, IV Push, Once, Stop date 04/01/25 22:55:00 EDT, STAT, Start date 04/01/25 22:55:00 EDT, 04/01/25 22:55:00 EDT metoclopramide, 10 mg = 2 mL, Injection, IV Push, Once, Stop date 04/01/25 (more content not included)... Normal [facility] Comment on above: Result Comment: Elec tronically Signed By: Johnny Cole PA-C\.br\Date and Time Signed: 04/01/25 23:03 EDT\.br\Electronically Co-Signed By: Micah Greer DO\.br\Date and Time Co-Signed: 04/02/25 01:56 EDT BMPon 04-01-2025 Anion gap [Moles/Vol] 12 mmol/L Normal 6-16 [facility] Comment on above: Performed By: #### 2 [id number] #### [facility] [address] [place] [address] BUN/Creat Ratio 14 No Units Normal 10-20 [facility] Comment on above: Performed By: #### 2 [id number] #### [facility] [address] [place] [address] Calcium [Mass/Vol] 9.4 mg/dL Normal 8.9-11.1 [facility] Comment on above: Performed By: #### 2 [id number] #### [facility] [address] [place] [address] Chloride [Moles/Vol] 106 mmol/L Normal 101-111 [facility] Comment on above: Performed By: #### 2 [id number] #### [facility] [address] [place] [address] CO2 [Moles/Vol] 26 mmol/L Normal 21-31 [facility] Comment on above: Performed By: #### 2 [id number] #### [facility] [address] [place] [address] Creatinine [Mass/Vol] 0.7 mg/dL Normal 0.5-1.3 [facility] Comment on above: Performed By: #### 2 [id number] #### [facility] [address] [place] [address] Glucose [Mass/Vol] 100 mg/dL Normal 55-199 [facility] Comment on above: Performed By: #### 2 [id number] #### [facility] [address] [place] [address] Potassium [Moles/Vol] 3.6 mmol/L Normal 3.5-5.3 [facility] Comment on above: Performed By: #### 2 [id number] #### [facility] [address] [place] [address] Sodium [Moles/Vol] 140 mmol/L Normal 135-145 [facility] Comment on above: Performed By: #### 2 [id number] #### [facility] [address] [place] [address] Urea nitrogen [Mass/Vol] 10 mg/dL Normal 5-21 [facility] Comment on above: Performed By: #### 2 [id number] #### [facility] [address] [place] [address] CBC w/ Auto Diffon 5 Basophil Absolute 0.1 E9/L Normal 0.0-0.2 [facility] Comment on above: Performed By: #### 2 [id number] #### [facility] [address] [place] [address] Basophils/100 WBC (Bld) 1.9 % Normal 0.0-2.0 [facility] Comment on above: Performed By: #### 2 [id number] #### [facility] [address] [place] [address] Eos Absolute 0.3 E9/L Normal 0.0-0.5 [facility] Comment on above: Performed By: #### 2 [id number] #### [facility] [address] [place] [address] Eosinophils/100 WBC (Bld) 6.7 % Normal 0.0-8.0 [facility] Comment on above: Performed By: #### 2 [id number] #### [facility] [address] [place] [address] Erythrocyte distribution width (RBC) [Ratio] 15.0 % High 10.9-14.2 [facility] Comment on above: Performed By: #### 2 [id number] #### [facility] [address] [place] [address] Hematocrit (Bld) [Volume fraction] 35.5 % Normal 34.0-46.0 [facility] Comment on above: Performed By: #### 2 [id number] #### [facility] [address] [place] [address] Hemoglobin (Bld) [Mass/Vol] 12.1 g/dL Normal 12.0-16.0 [facility] Comment on above: Performed By: #### 2 [id number] #### [facility] [address] [place] [address] Lymph Absolute 1.5 E9/L Normal 1.0-4.0 [facility] Comment on above: Performed By: #### 2 [id number] #### [facility] [address] [place] [address] Lymphocytes/100 WBC (Bld) 35.2 % Normal 14.0-50.0 [facility] Comment on above: Performed By: #### 2 [id number] #### [facility] [address] [place] [address] MCH (RBC) [Entitic mass] 28.3 pg Normal 27.0-34.0 [facility] Comment on above: Performed By: #### 2 [id number] #### [facility] [address] [place] [address] MCHC (RBC) [Mass/Vol] 34.0 g/dL Normal 31.4-36.0 [facility] Comment on above: Performed By: #### 2 [id number] #### [facility] [address] [place] [address] MCV (RBC) [Entitic vol] 83.2 fL Normal 80.0-100.0 [facility] Comment on above: Performed By: #### 2 [id number] #### [facility] [address] [place] [address] [place] Absolute 0.3 E9/L Normal 0.2-1.0 [facility] Comment on above: Performed By: #### 2 [id number] #### [facility] [address] [place] [address] Monocytes/100 WBC (Bld) 5.9 % Normal 4.0-14.0 [facility] Comment on above: Performed By: #### 2 [id number] #### [facility] [address] [place] [address] Neutro Absolute 2.2 E9/L Normal 2.0-7.5 [facility] Comment on above: Performed By: #### 2 [id number] #### [facility] [address] [place] [address] Neutro Auto 50.3 % Normal 36.0-75.0 [facility] Comment on above: Performed By: #### 2 [id number] #### [facility] [address] [place] [address] Platelet 210.0 E9/L Normal 150.0-500.0 [facility] Comment on above: Performed By: #### 2 [id number] #### [facility] [address] [place] [address] Platelet mean volume (Bld) [Entitic vol] 8.4 fL Normal 6.4-10.8 [facility] Comment on above: Performed By: #### 2 [id number] #### [facility] [address] [place] [address] RBC 4.3 E12/L Normal 4.3-5.9 [facility] Comment on above: Performed By: #### 2 [id number] #### [facility] [address] [place] [address] WBC 4.3 E9/L Normal 4.0-11.0 [facility] Comment on above: Performed By: #### 2 [id number] #### [facility] [address] [place] [address] CHEMISTRYOrdered By: SYSTEM SYSTEM on 04-01-2025 Albumin [Mass/Vol] 4.3 g/dL Normal 3.3 - 5.0 gm/dL Rem[facility] Chem Albumin/Globulin [Mass ratio] 1.7 {ratio} Normal 1.1 - 2.2 [facility] ALP [Catalytic activity/Vol] 76 [iU]/d Normal 21 - 98 Int._Unit/L [facility] ALT No additional P-5'-P [Catalytic activity/Vol] 19 [iU]/d Normal 6 - 46 Int._Unit/L [facility] Anion gap [Moles/Vol] 12 mmol/L Normal 6 - 16 mEq/L [facility] AST [Catalytic activity/Vol] 17 [iU]/d Normal 5 - 43 Int._Unit/L [facility] Bilirubin [Mass/Vol] 0.3 mg/dL Normal 0.0 - 1 .1 mg/dL [facility] Bilirubin.direct [Mass/Vol] 0.0 mg/dL Normal 0.0 - 0.4 mg/dL [facility] Bilirubin.indirect [Mass or moles/Vol] 0.3 mg/dL Normal 0.1 - 0.9 mg/dL [facility] Calcium [Mass/Vol] 9.4 mg/dL Normal 8.9 - 11. 1 mg/dL [facility] Chloride [Moles/Vol] 106 mmol/L Normal 101 - 1 11 mmol/L [facility] CO2 [Moles/Vol] 26 mmol/L Normal 21 - 31 mmol/L [facility] Creatinine [Mass/Vol] 0.7 mg/dL Normal 0.5 - 1.3 mg/dL [facility] GFR/1.73 sq M.predicted MDRD (S/P/Bld) [Vol rate/Area] 102 mL/min/1.73 m2 Normal >=59mL/min/ 1.73 m2 [facility] Globulin (S) [Mass/Vol] 2.5 g/dL Normal 1.4 - 4.0 gm/dL [facility] Glucose [Mass/Vol] 100 mg/dL Normal 55 - 199 mg/dL [facility] Lipase [Catalytic activity/Vol] 47 U/L Normal 13 - 58 unit/L [facility] Potassium [Moles/Vol] 3.6 mmol/L Normal 3.5 - 5.3 mmol/L [facility] Protein [Mass/Vol] 6.8 g/dL Normal 6.0 - 7.8 gm/dL [facility] Sodium [Moles/Vol] 140 mmol/L Normal 135 - 145 mmol/L [facility] Troponin HS 4.30 pg/mL Low 10.10 - 27.10 pg/mL [facility] Comment on above: Interpretive Data: T he 95% CI (Confidence Interval) PPV (Positive Predictive Value) for myocardial infarction in females is 38 pg/mL, in males 51 pg/mL. The results should be used in conjunction with clinical conditions of myocardial infarction. (Access High Sensitivity Troponin I Instructions For Use, Cely Parisa, April 2018) Urea nitrogen [Mass/Vol] 10 mg/dL Normal 5 - 21 mg/dL [facility] Urea nitrogen/Creatinine [Mass ratio] 14 mg/mg Normal 10 - 20 [facility] ED Clinical Summaryon 2024 ED Clinical Summary ED Clinical Summary [place] [id number] ED Clinical Summary Person Information Name: JANA CABALLERO/[facility] Age: 54 Years : 1970 Sex: Female Language: Syrian PCP: Elayne Sanchez Marital Status: Phone: [phone] MRN: Visit Id: Visit Reason: Abdominal pain; Diarrhea; ABD PAIN, RIB/ TRUNK PAIN, HERNIA Speciality: Acuity: 3 Enc Type: Emergency Med Service: Emergency Arrival: 04/01/2025 18:09:11 Discharge: 04/01/2025 23:21:45 LOS: 000 05:12 Checkin: 04/01/2025 18:09:11 Checkout: 04/01/2025 23:21:45 Dispo Type: Home (Routine DC) EVENTS: Event Name Event Status Request Date/Time Start Date/Time Complete Date/Time Arrive Complete 04/01/2025 18:09:11 04/01/2025 18:09:11 04/01/2025 18:09:11 Document Home Meds Request 04/01/2025 18:09:11 Triage Complete 04/01/2025 18:09:11 04/01/2025 18:15:47 04/01/2025 18:15:47 Registration Complete 04/01/2025 18:13:24 04/01/2025 18:13:24 04/01/2025 18:13:24 Reg Complete Request 04/01/2025 18:13:24 Reg Bed Request Complete 04/01/2025 18:13:24 04/01/2025 18:13:24 04/01/2025 18:13:24 Pending Labs Complete 04/01/2025 18:20:44 04/01/2025 19:53:21 04/01/2025 20:22:33 Lab Complete 04/01/2025 18:20:44 04/01/2025 20:22:33 Bed Assign Complete 04/01/2025 19:34:44 04/01/2025 19:34:44 04/01/2025 19:34:44 Dr Exam Complete 04/01/2025 19:34:44 04/01/2025 19:35:31 04/01/2025 19:35:31 RN Exam Complete 04/01/2025 19:34:44 04/01/2025 19:43:14 04/01/2025 19:43:14 Registration Complete 04/01/2025 19:35:31 04/01/2025 21:12:59 04/01/2025 21:12:59 Dr Exam Complete 04/01/2025 19:37:06 04/01/2025 19:37:06 04/01/2025 19:37:06 CT Complete 04/01/2025 19:48:01 04/01/2025 20:07:09 04/01/2025 20:24:12 Meds Admin Complete 04/01/2025 19:48:37 04/01/2025 19:59:42 Pending Labs Cancel 04/01/2025 19:49:56 04/01/2025 20:05:52 EKG Complete 04/01/2025 19:49:56 04/01/2025 20:38:06 Pending Labs Complete 04/01/2025 19:52:41 04/01/2025 19:52:41 04/01/2025 20:22:33 Lab Complete 04/01/2025 19:52:41 04/01/2025 19:52:41 04/01/2025 20:22:33 Pending Labs Complete 04/01/2025 20:06:32 04/01/2025 20:06:32 04/01/2025 20:28:43 Pending Labs Complete 04/01/2025 22:04:37 04/01/2025 22:04:37 04/01/2025 22:04:38 Meds Admin Complete 04/01/2025 22:56:30 04/01/2025 23:12:38 Discharge Complete 04/01/2025 22:59:43 04/01/2025 23:21:52 04/01/2025 23:21:52 Transfer Complete 04/01/2025 23:21:52 04/01/2025 23:21:52 04/01/2025 23:21:52 ADDRESS: [address] [facility] [id number] PHYS DOC NOTES: MEDICAL INFORMATION: Prescriptions Given: New Medications [id number], [address] [place], [place] [id number], [phone] dicyclomine (Bentyl 10 mg Cap) 1 Capsules By Mouth 4 times a day for 7 Days. Refills: 0. promethazine (promethazine 25 mg Tab) 1 Tablets By Mouth every 6 hours as needed as needed for nausea/vomiting. Refills: 0. Medications to Continue Taking That [id number], [address] [place], [place] [id number], [phone] START: ondansetron (ondansetron 4 mg Dis Tab) 1 Tablets By Mouth every 6 hours as needed Nausea/Vomiting. Refills: 0. Other Medications START: ondansetron (Zofran ODT 4 mg Tab-Dis) 1 Tablets By Mouth every 6 hours. Refills: 0. Medications to Continue with No Changes Other Medications acetaminophen-oxycodone (Percocet 5 mg-325 mg oral tablet) 1 Tablets By Mouth every 6 hours as needed as needed for pain. Refills: 0. albuterol (albuterol HFA 90 mcg/inh MDI) 2 Puffs Inhalation every 4 hours as needed for wheezing. Refills: 3. APAP/butalbital/caffeine (APAP/butalbital/caffeine 325 mg-50 mg-40 mg Tab) 2 Tablets By Mouth every 6 hours as needed for headache. Refills: 0. calcium carbonate (calcium 500 mg tablets) 2 Tablets By Mouth 2 times a day. Refills: 3. cholecalciferol (cholecalciferol 50,000 intl units oral capsule) 1 Capsules By Mouth every 7 days. Refills: 1. ciclopirox topical (Ciclodan 8% topical solution) 1 Application Topical every day. Apply to great toe after shower , file nail, daily to affected area. Refills: 3. cyanocobalamin (Vitamin B12 1000 mcg Tab) 1 Tablets By Mouth every day. Refills: 0. cyclobenzaprine (cyclobenzaprine 10 mg Tab) 1 Tablets By Mouth 3 times a day as needed for spasm. Refills: 0. diclofenac topical (Voltaren Gel 1% Gel) 1 Application Topical 4 times a day as needed for pain. Refills: 0. escitalopram (escitalopram 10 mg Tab) 1 Tablets By Mouth every day. Refills: 3. ferrous sulfate (ferrous sulfate 325 mg Tab) 1 Tablets By Mouth every day. Refills: 3. ibuprofen (ibuprofen 600 mg Tab) 1 Tablets By Mouth every 8 hours as needed Pain/Fever. Refills: 0. lidocaine topical (lidocaine Top 5% film Patch) 1 Patches Topical every day. apply 12 hours on and 12 hours off daily. Refills: 0. multivitamin with minerals (One A Day Women's Complete oral tablet) 1 Tablets By Mouth every day. Refills: 0. naproxen (Naprosyn 500 mg Tab) 1 Tablets By Mouth 2 times a day. Refills: 0. pantoprazole (Caballero (more content not included)... Normal [facility] ED Patient Summaryon 025 ED Patient Summary ED Patient Summary [address] [address] Patient Discharge Instructions Person Information Name: JANA CABALLERO Age: 54 Years Arrival Date: 04/01/2025 18:09:11 Discharge Diagnosis: Colitis; Diarrhea; Nausea & vomiting; Pelvic fracture Primary Care Physician: Elayne Sanchez Provider Information Primary Provider: Micah Greer DO Advanced Asset Management Analyst:Johnny Cole PA-C The exam and treatment you received in the Emergency Department were for an urgent problem and are not intended as complete care. It is important that you follow up with a doctor, nurse practitioner, or physician???s accounting administrative assistant for ongoing care. If your symptoms become worse or you do not improve as expected and you are unable to reach your usual health care provider, you should return to the Emergency Department. We are available 24 hours a day. JANA CABALLERO has been given the following list of patient education materials, prescriptions and follow-up instructions: Follow-up Instructions: With: Address: When: Mateusz Rodriguez [address] [facility], [address] [place] [phone] Independent IP (1) In 3 days 04/04/2025 Comments: Please call gastroenterology office for close outpatient follow-up. Take medication as prescribed. Continue to hydrate. Return to ED if symptoms worsen or new symptoms arise. With: Address: When: Leodan Pittman [address] [place] [address] Independent IP (1) In 3 days 04/04/2025 Comments: Please call orthopedic office for close outpatient follow-up regarding chronic pelvic fractures seen on CT scan. With: Address: When: Elayne Adler In 3 days In the event that this physician does not participate in your insurance network, please consult with your insurance company to find a nearby participating provider. Patient Education Materials: Simple Pelvic Fracture, Adult; Diarrhea, Adult; Colitis A MESSAGE TO ALL PATIENTS REGARDING OPIOIDS PRESCRIPTION OPIOIDS: WHAT YOU NEED TO KNOW Prescription opioids can be used to help relieve [id number]-pgufht pain and are often prescribed following a surgery or injury, or for certain health conditions. These medications can be an important part of the treatment but also come with serious risks. It is important to work with your healthcare provider to make sure you are getting the safest, most effective care. WHAT ARE THE RISKS AND SIDE EFFECTS OF OPIOID USE? Prescription opioids carry serious risks of addiction and overdose, especially with prolonged use. An opioid overdose, often marked by slowed breathing, can cause sudden . The use of prescription opioids can have a number of side effects as well, even when taken as directed: ??? Tolerance???meaning you might need to take more of the medication for the same pain relief ??? Physical dependence???meaning you have symptoms of withdrawal when a medication is stopped ??? Increased sensitivity to pain ??? Constipation ??? Nausea, vomiting, and dry mouth ??? Sleepiness and dizziness ??? Confusion ??? Depression ??? Low levels of testosterone that can result in lower sex drive, energy, and strength ??? Itching and sweating RISKS ARE GREATER WITH: ??? History of drug misuse, substance use disorder, or overdose ??? Mental health conditions (such as depression or anxiety) ??? Sleep apnea ??? Older age (65 years and older) ??? Avoid alcohol while taking prescription opioids. Also, unless specifically advised by your health care provider, medications to avoid include: ??? Benzodiazepines (such as Xanax or Valium) ??? Muscle relaxants (such as Soma or Flexeril) ??? Hypnotics (such as Ambien or Lunesta) ??? Other prescription opioids KNOW YOUR OPTIONS Talk to your health care provider about ways to manage your pain that don???t involve prescription opioids. Some of these options may actually work better and have fewer risks and side effects. Options may include: ??? Pain relievers such as acetaminophen, ibuprofen, and naproxen ??? Some medication that are also used for depression or seizures ??? Physical therapy and exercise ??? Cognitive behavioral therapy, a psychological, goal-directed approach, in which patients learn how to modify physical, behavioral, and emotional triggers of pain and stress. IF YOU ARE PRESCRIBED OPIOIDS FOR PAIN: ??? Never take opioids in greater amounts or more often than prescribed. ??? Follow up with your primary health care provider. o Work together to create a plan on how to manage your pain. o Talk about ways to help manage your pain that don???t involve prescription opioids. o Talk about any and all concerns and side effects. ??? Help prevent misuse and abuse o Never sell or share prescription opioids. o Never use another person???s prescription opioids. ??? Store prescri (more content not included)... Normal [facility] Extra Blueon 04-01-2025 Tube Collected Plasma Yes Invalid Interpretation Code [facility] Comment on above: Performed By: #### 1 [id number] #### [facility] [address] [place] [address] HEMATOLOGYOrdered By: SYSTEM SYSTEM on 04-01-2025 Basophils/100 WBC (Bld) 1.9 % Normal 0.0 - 2.0 % Remisol Heme Basophils/Leukocytes Auto (Bld) [Pure # fraction] 0.1 E9/L Normal 0.0 - 0.2 E9/L Remisol Heme Eosinophils (Bld) [#/Vol] 0.3 E9/L Normal 0.0 - 0.5 E9/L Remisol Heme Eosinophils/100 WBC (Bld) 6.7 % Normal 0.0 - 8.0 % Remisol Heme Erythrocyte distribution width (RBC) [Ratio] 15.0 % High 10.9 - 14.2 % Remisol Heme Hematocrit (Bld) [Volume fraction] 35.5 % Normal 34.0 - 46.0 % Remisol Heme Hemoglobin (Bld) [Mass/Vol] 12.1 g/dL Normal 12.0 - 16.0 gm/dL Remisol Heme Lymphocytes (Bld) [#/Vol] 1.5 E9/L Normal 1.0 - 4.0 E9/L Remisol Heme Lymphocytes/100 WBC (Bld) 35.2 % Normal 14.0 - 50.0 % Remisol Heme MCH (RBC) [Entitic mass] 28.3 pg Normal 27.0 - 34.0 pg Remisol Heme MCHC (RBC) [Mass/Vol] 34.0 g/dL Normal 31.4 - 36.0 gm/dL Remisol Heme MCV (RBC) [Entitic vol] 83.2 fL Normal 80.0 - 100.0 fL Remisol Heme Monocytes (Bld) [#/Vol] 0.3 E9/L Normal 0.2 - 1.0 E9/L Remisol Heme Monocytes/100 WBC (Bld) 5.9 % Normal 4.0 - 14.0 % Remisol Heme Neutrophils (Bld) [#/Vol] 2.2 E9/L Normal 2.0 - 7.5 E9/L Remisol Heme Neutrophils/100 WBC (Bld) 50.3 % Normal 36.0 - 75.0 % Remisol Heme Platelet mean volume (Bld) [Entitic vol] 8.4 fL Normal 6.4 - 10.8 fL Remisol Heme Platelets (Bld) [#/Vol] 210.0 E9/L Normal 150.0 - 500.0 E9/L Remisol Heme RBC (Bld) [#/Vol] 4.3 E12/L Normal 4.3 - 5.9 E12/L Remisol Heme WBC corrected for nucl RBC Auto (Bld) [#/Vol] 4.3 E9/L Normal 4.0 - 11.0 E9/L Remisol Heme Hep Func Panelon 04-01-2025 Albumin [Mass/Vol] 4.3 g/dL Normal 3.3-5.0 [facility] Comment on above: Performed By: #### 2 [id number] #### [facility] [address] [place] [address] Albumin/Globulin [Mass ratio] 1.7 {ratio} Normal 1.1-2.2 [facility] Comment on above: Performed By: #### 2 [id number] #### [facility] [address] [place] [address] Alk Phos 76 Int._Unit/L Normal 21-98 [facility] Comment on above: Performed By: #### 2 [id number] #### [facility] [address] [place] [address] ALT 19 Int._Unit/L Normal 6-46 [facility] Comment on above: Performed By: #### 2 [id number] #### [facility] [address] [place] [address] AST 17 Int._Unit/L Normal 5-43 [facility] Comment on above: Performed By: #### 2 [id number] #### [facility] [address] [place] [address] Bili Direct 0.0 mg/dL Normal 0.0-0.4 [facility] Comment on above: Performed By: #### 2 [id number] #### [facility] [address] [place] [address] Bili Indirect 0.3 mg/dL Normal 0.1-0.9 [facility] Comment on above: Performed By: #### 2 [id number] #### [facility] [address] [place] [address] Bili Total 0.3 mg/dL Normal 0.0-1.1 [facility] Comment on above: Performed By: #### 2 [id number] #### [facility] [address] [place] [address] Globulin (S) [Mass/Vol] 2.5 g/dL Normal 1.4-4.0 [facility] Comment on above: Performed By: #### 2 [id number] #### [facility] [address] [place] [address] Protein [Mass/Vol] 6.8 g/dL Normal 6.0-7.8 [facility] Comment on above: Performed By: #### 2 [id number] #### [facility] [address] [place] [address] Lipase Levelon 04-01-2025 Lipase Lvl 47 unit/L Normal 13-58 [facility] Comment on above: Performed By: #### 2 [id number] #### [facility] [address] [place] [address] Troponin 0 Hr.on 04-01-2025 Troponin HS 4.30 pg/mL Low 10.10-27.10 [facility] Comment on above: Result Comment: The 95% CI (Confidence Interval) PPV (Positive Predictive Value) for myocardial infarction in females is 38 pg/mL, in males 51 pg/mL. The results should be used in conjunction with clinical conditions of myocardial infarction. (Access High Sensitivity Troponin I Instructions For Use, [place]ely [place], April 2018) Performed By: #### 1 [id number] #### [facility] [address] [place] [address] UA with Cult Rflxon 04-01-20 25 Color (U) Light-Yellow Normal Yellow [facility] Comment on above: Result Comment: Micr oscopic readings are only performed on those samples that meet specific criteria set forth by [facility]. Performed By: #### 4 [id number] #### [facility] [address] [place] [address] Glucose (U) [Mass/Vol] Negative Normal Negative [facility] Comment on above: Performed By: #### 4 [id number] #### [facility] [address] [place] [address] Ketones Ql (U) Negative Normal Negative [facility] Comment on above: Performed By: #### 4 [id number] #### [facility] [address] [place] [address] UA Blood Negative Normal Negative [facility] Comment on above: Performed By: #### 4 [id number] #### [facility] [address] [place] [address] UA Clarity Clear Normal Clear [facility] Comment on above: Performed By: #### 4 [id number] #### [facility] [address] [place] [address] UA Leuk Est Negative Normal Negative [facility] Comment on above: Performed By: #### 4 [id number] #### [facility] [address] [place] [address] UA Nitrite Negative Normal Negative [facility] Comment on above: Performed By: #### 4 [id number] #### [facility] [address] [place] [address] UA pH 6.0 Invalid Interpretation Code 5.0-9.0 [facility] Comment on above: Performed By: #### 4 [id number] #### [facility] [address] [place] [address] UA Protein Negative Normal Negative [facility] Comment on above: Performed By: #### 4 [id number] #### [facility] [address] [place] [address] UA Spec Grav 1.014 Invalid Interpretation Code 1.005-1.030 [facility] Comment on above: Performed By: #### 4 [id number] #### [facility] [address] [place] [address] UA Urobilinogen Negative Normal Negative [facility] Comment on above: Performed By: #### 4 [id number] #### [facility] [address] [place] [address] Urobilinogen (U) [Mass/Vol] Negative Normal Negative [facility] Comment on above: Performed By: #### 4 [id number] #### [facility] [address] [place] [address] UA Spec Desc Clean Catch Normal [facility] Comment on above: Performed By: #### 4 [id number] #### [facility] [address] [place] [address] URINALYSISOrdered By: SYSTEM SYSTEM on 04-01-2025 Bilirubin Ql (U) Negative Normal Negativemg/ dL [facility] [place] Auto SS Clarity (U) Clear (04/01/25 7:51 PM) Normal Clear [facility] UA Auto SS Color (U) Light-Yellow 1 (04/01/25 7:51 PM) Normal Yellow [facility] UA Auto SS Comment on above: Interpretive Data: M icroscopic readings are only performed on those samples that meet specific criteria set forth by [facility]. Glucose Ql (U) Negative Normal Negativemg/ dL [facility] UA Auto SS Hemoglobin Auto test strip (U) [Mass/Vol] Negative Normal Negativemg/ dL [facility] UA Auto SS Ketones Auto test strip Ql (U) Negative Normal Negativemg/ dL [facility] UA Auto SS Leukocyte esterase Auto test strip Ql (U) Negative Normal NegativeLeu /uL [facility] UA Auto SS Nitrite Auto test strip Ql (U) Negative Normal Negativemg/ dL [facility] UA Auto SS pH (U) 6.0 *NA* (04/01/25 7:51 PM) Invalid Interpretation Code 5.0 - 9.0 [facility] UA Auto SS Protein Ql (U) Negative Normal Negativemg/ dL [facility] UA Auto SS Specific gravity (U) [Rel density] 1.014 *NA* (04/01/25 7:51 PM) Invalid Interpretation Code 1.005 - 1.030 [facility] UA Auto SS Urobilinogen (U) [Mass/Vol] Negative Normal Negativemg/ dL [facility] UA Auto SS URINALYSISOrdered By: Jeniffer Del Real on 04-01-2025 UA Spec Desc Clean Catch (04/01/25 7:51 PM) Normal [facility] UA Auto SS eGFRon 04-01-2025 eGFR 102 mL/min/1.73 m2 Normal >=59 [facility] Comment on above: Performed By: #### 1 [id number] #### [facility] [address] [place] [address] BMPon 02-18-2025 Anion gap [Moles/Vol] 10 mmol/L Normal 6-16 [facility] Comment on above: Performed By: #### 2 [id number] #### [facility] [address] [place] [address] Calcium [Mass/Vol] 8.7 mg/dL Low 8.9-11.1 [facility] Comment on above: Performed By: #### 2 [id number] #### [facility] [address] [place] [address] Chloride [Moles/Vol] 107 mmol/L Normal 101-111 [facility] Comment on above: Performed By: #### 2 [id number] #### [facility] [address] [place] [address] CO2 [Moles/Vol] 25 mmol/L Normal 21-31 [facility] Comment on above: Performed By: #### 2 [id number] #### [facility] [address] [place] [address] Creatinine [Mass/Vol] 0.5 mg/dL Normal 0.5-1.3 [facility] Comment on above: Performed By: #### 2 [id number] #### [facility] [address] [place] [address] Glucose [Mass/Vol] 104 mg/dL Normal 55-199 [facility] Comment on above: Performed By: #### 2 [id number] #### [facility] [address] [place] [address] Potassium [Moles/Vol] 3.9 mmol/L Normal 3.5-5.3 [facility] Comment on above: Performed By: #### 2 [id number] #### [facility] [address] [place] [address] Sodium [Moles/Vol] 138 mmol/L Normal 135-145 [facility] Comment on above: Performed By: #### 2 [id number] #### [facility] [address] [place] [address] Urea nitrogen [Mass/Vol] 17 mg/dL Normal 5-21 [facility] Comment on above: Performed By: #### 2 [id number] #### [facility] [address] [place] [address] Urea nitrogen/Creatinine [Mass ratio] 34 No Units High 10-20 [facility] Comment on above: Performed By: #### 2 [id number] #### [facility] [address] [place] [address] BNPon 02-18-2025 Natriuretic peptide B (Bld) [Mass/Vol] 29 pg/mL Normal 5-80 [facility] Comment on above: Performed By: #### 1 [id number] #### [facility] [address] [place] [address] CBC w/ Auto Diffon 5 Basophils/100 WBC (Bld) 3.7 % High 0.0-2.0 [facility] Comment on above: Performed By: #### 2 [id number] #### [facility] [address] [place] [address] Basophils/Leukocytes Auto (Bld) [Pure # fraction] 0.2 E9/L Normal 0.0-0.2 [facility] Comment on above: Performed By: #### 2 [id number] #### [facility] [address] [place] [address] Eosinophils (Bld) [#/Vol] 0.4 E9/L Normal 0.0-0.5 [facility] Comment on above: Performed By: #### 2 [id number] #### [facility] [address] [place] [address] Eosinophils/100 WBC (Bld) 8.2 % High 0.0-8.0 [facility] Comment on above: Performed By: #### 2 [id number] #### [facility] [address] [place] [address] Erythrocyte distribution width (RBC) [Ratio] 15.2 % High 10.9-14.2 [facility] Comment on above: Performed By: #### 2 [id number] #### [facility] [address] [place] [address] Hematocrit (Bld) [Volume fraction] 33.3 % Low 34.0-46.0 [facility] Comment on above: Performed By: #### 2 [id number] #### [facility] [address] [place] [address] Hemoglobin (Bld) [Mass/Vol] 11.3 g/dL Low 12.0-16.0 [facility] Comment on above: Performed By: #### 2 [id number] #### [facility] [address] [place] [address] Lymphocytes (Bld) [#/Vol] 1.8 E9/L Normal 1.0-4.0 [facility] Comment on above: Performed By: #### 2 [id number] #### [facility] [address] [place] [address] Lymphocytes/100 WBC (Bld) 34.5 % Normal 14.0-50.0 [facility] Comment on above: Performed By: #### 2 [id number] #### [facility] [address] [place] [address] MCH (RBC) [Entitic mass] 28.2 pg Normal 27.0-34.0 [facility] Comment on above: Performed By: #### 2 [id number] #### [facility] [address] [place] [address] MCHC (RBC) [Mass/Vol] 34.0 g/dL Normal 31.4-36.0 [facility] Comment on above: Performed By: #### 2 [id number] #### [facility] [address] [place] [address] MCV (RBC) [Entitic vol] 83.1 fL Normal 80.0-100.0 [facility] Comment on above: Performed By: #### 2 [id number] #### [facility] [address] [place] [address] Monocytes (Bld) [#/Vol] 0.4 E9/L Normal 0.2-1.0 [facility] Comment on above: Performed By: #### [id number] #### [facility] [address] [place] [address] Neutrophils (Bld) [#/Vol] 2.4 E9/L Normal 2.0-7.5 [facility] Comment on above: Performed By: #### [id number] #### [facility] [address] [place] [address] Neutrophils/100 WBC (Bld) 46.6 % Normal 36.0-75.0 [facility] Comment on above: Performed By: #### [id number] #### [facility] [address] [place] [address] Platelet 210.0 E9/L Normal 150.0-500.0 [facility] Comment on above: Performed By: #### [id number] #### [facility] [address] [place] [address] Platelet mean volume (Bld) [Entitic vol] 8.3 fL Normal 6.4-10.8 [facility] Comment on above: Performed By: #### [id number] #### [facility] [address] [place] [address] RBC (Bld) [#/Vol] 4.0 E12/L Low 4.3-5.9 [facility] Comment on above: Performed By: #### 2 [id number] #### [facility] [address] [place] [address] WBC corrected for nucl RBC Auto (Bld) [#/Vol] 5.1 E9/L Normal 4.0-11.0 [facility] Comment on above: Performed By: #### [id number] #### [facility] [address] [place] [address] CHEMISTRYOrdered By: SYSTEM SYSTEM on 02-18-2025 Anion gap [Moles/Vol] 10 mmol/L Normal 6 - 16 mEq/L Remisol Chem Calcium [Mass/Vol] 8.7 mg/dL Low 8.9 - 11. 1 mg/dL Remisol Chem Chloride [Moles/Vol] 107 mmol/L Normal 101 - 1 11 mmol/L Remisol Chem CO2 [Moles/Vol] 25 mmol/L Normal 21 - 31 mmol/L Remisol Chem Creatinine [Mass/Vol] 0.5 mg/dL Normal 0.5 - 1.3 mg/dL Remisol Chem eGFR 111 mL/min/1.73 m2 Normal >=59mL/mi n/ 1.73 m2 Remisol Chem Glucose [Mass/Vol] 104 mg/dL Normal 55 - 199 mg/dL Remisol Chem Potassium [Moles/Vol] 3.9 mmol/L Normal 3.5 - 5.3 mmol/L Remisol Chem Sodium [Moles/Vol] 138 mmol/L Normal 135 - 145 mmol/L Remisol Chem Troponin HS 6.40 pg/mL Low 10.10 - 27.10 pg/mL Remisol Chem Comment on above: Interpretive Data: T he 95% CI (Confidence Interval) PPV (Positive Predictive Value) for myocardial infarction in females is 38 pg/mL, in males 51 pg/mL. The results should be used in conjunction with clinical conditions of myocardial infarction. (Access High Sensitivity Troponin I Instructions For Use, Cely [place], April 2018) Urea nitrogen [Mass/Vol] 17 mg/dL Normal 5 - 21 mg/dL Remisol Chem Urea nitrogen/Creatinine [Mass ratio] 34 mg/mg High 10 - 20 Remisol Chem CHEMISTRYOrdered By: Padilla López on 02-18-2025 Natriuretic peptide B (Bld) [Mass/Vol] 29 pg/mL Normal 5 - 80 pg/mL [facility] HemeIrvingSS COAGULATIONOrdered By: Willi López on 02-18-2025 aPTT Coag (PPP) [Time] 30.2 s Normal 25.1 - 36.5 second(s) [facility] Comment on above: Interpretive Data: P arameter 15 days - 4 weeks 1 - 5 months 6 - 11 months 1 - 5 years 6 - 10 years 11 - 17 years PTT Mean: 35.4 (27.6-45.6) Mean: 33.5 (24.8-40.7) Mean: 32.4 (25.1-40.7) Mean: 31.6 (24.0-39.2) Mean: 31.6 (26.9-38.7) Mean: 31.0 (24.6-38.4) Pediatric Reference ranges were obtained from a study by Antoni Smart et al. prepared from 1437 samples obtained at 7 different centers using the same coagulation reagent and instrumentation as [facility]. Currently there are no coagulation studies available worldwide for children to 14 days, and no normal ranges. Heparin therapeutic range (represented by Anti-Factor Xa activity of 0.2 - 0.4 U/mL) corresponds to PTT of 56.6 - 109.0 sec. INR Coag (PPP) [Relative time] 1.04 {INR} Invalid Interpretation Code [facility] Comment on above: Interpretive Data: I NR results are specifically intended to assess patients stabilized on long-term Anticoagulation therapy suggested INR s Less Intensive Anticoagulation 2.0 3.0 Conventional Range 3.0 4.5 PT Coag (PPP) [Time] 11.7 s Normal 9.4 - 1 2.5 second(s) [facility] Comment on above: Interpretive Data: 1 5 days - 4 weeks 1 - 5 months 6 -11 months 1 5 years 6 10 years 11 -17 years Mean: 11.2 (9.5 12.6) Mean: 11.0 (9.7 12.8) Mean: 11.0 (9.8 13.0) Mean: 11.3 (9.9 13.4) Mean: 11.7 (10.0 14.6) Mean: 11.8 (10.0 - 14.1) Pediatric Reference ranges were obtained from a study by rivas Rosas al. prepared from 1437 samples obtained at 7 different centers using the same coagulation reagent and instrumentation as [facility]. Currently there are no coagulation studies available worldwide for children to 14 days, and no normal ranges. CT Head or Brain w/o Contras ton 02-18-2025 CT Head or Brain w/o Contrast Exam Date/Time: 02/18/2025 03:00 EDT Reason for Exam: Headache Report Impression: No acute intracranial process. CT Brain. Contrast medium: without contrast.. History: Headache beginning this morning. History of migraines and vertigo. Technical factors: CT imaging of the brain was obtained and formatted as 5 mm contiguous axial images. 2.5 mm contiguous axial images were obtained through the osseous structures. Sagittal and coronal reconstruction obtained during postprocessing. Comparison: 09/18/2022. Findings: Extra-axial spaces: Normal. Intracranial hemorrhage: None. Ventricular system: Without anomaly. Basal Cisterns: Normal. Cerebral Parenchyma: Without anomaly. Midline Shift: None. Cerebellum: Normal. Paranasal sinuses and mastoid air cells: Normal. Visualized Orbits: Normal. All CT scans at this facility use dose modulation, iterative reconstruction, and/or weight based dosing when appropriate to reduce radiation dose to as low as reasonably achievable. Technical Comments: Report Ordering Provider: Delia Nguyen FINAL REPORT Dictated: 02/18/2025 9:48 am Nahum Monson MD Signed (Electronic Signature): 02/18/2025 9:48 am Signed by: Nahum Monson MD Transcribed by: JG Technologist: ALEX Bertrand [facility] ED Clinical Summaryon 2024 ED Clinical Summary ED Clinical Summary [address] [address] ED Clinical Summary Person Information Name: JANA CABALLERO/NewJacey Age: 54 Years : 1970 Sex: Female Language: Syrian PCP: Elayne Sanchez Marital Status: Phone: [phone] Visit Id: Visit Reason: Nausea; Headache; HEADACHE Speciality: Acuity: 3 Enc Type: Emergency Med Service: Emergency Arrival: 02/17/2025 22:52:27 Discharge: 02/18/2025 06:26:57 LOS: 000 07:34 Checkin: 02/17/2025 22:52:27 Checkout: 02/18/2025 06:26:57 Dispo Type: Home (Routine DC) EVENTS: Event Name Event Status Request Date/Time Start Date/Time Complete Date/Time Arrive Complete 02/17/2025 22:52:27 02/17/2025 22:52:27 02/17/2025 22:52:27 Document Home Meds Request 02/17/2025 22:52:27 Triage Complete 02/17/2025 22:52:27 02/17/2025 22:56:34 02/17/2025 22:56:34 Bed Assign Complete 02/17/2025 22:53:03 02/17/2025 22:53:03 02/17/2025 22:53:03 Dr Exam Complete 02/17/2025 22:53:03 02/18/2025 01:06:13 02/18/2025 01:06:13 RN Exam Complete 02/17/2025 22:53:03 02/17/2025 23:02:49 02/17/2025 23:02:49 Registration Complete 02/18/2025 00:29:17 02/18/2025 00:29:17 02/18/2025 00:29:17 Reg Complete Request 02/18/2025 00:29:17 Reg Bed Request Complete 02/18/2025 00:29:17 02/18/2025 00:29:17 02/18/2025 00:29:17 Registration Request 02/18/2025 01:06:13 Meds Admin Request 02/18/2025 01:10:28 CT Complete 02/18/2025 01:29:04 02/18/2025 02:54:48 02/18/2025 03:00:08 Pending Labs Complete 02/18/2025 01:29:04 02/18/2025 03:59:24 Lab Complete 02/18/2025 01:29:04 02/18/2025 03:43:05 Patient Care Request 02/18/2025 01:29:04 RT Request 02/18/2025 01:29:04 Pending Labs Complete 02/18/2025 02:47:33 02/18/2025 02:47:33 02/18/2025 03:10:46 Lab Complete 02/18/2025 02:47:33 02/18/2025 02:47:33 02/18/2025 03:10:46 Pending Labs Complete 02/18/2025 04:11:17 02/18/2025 04:11:17 02/18/2025 04:11:17 Meds Admin Complete 02/18/2025 06:04:09 02/18/2025 06:17:19 Discharge Complete 02/18/2025 06:07:30 02/18/2025 06:27:07 02/18/2025 06:27:07 Transfer Complete 02/18/2025 06:27:07 02/18/2025 06:27:07 02/18/2025 06:27:07 [facility] [phone] [facility] DOC NOTES: MEDICAL INFORMATION: Prescriptions Given: New Medications Printed Prescriptions APAP/butalbital/caffeine (APAP/butalbital/caffeine 325 mg-50 mg-40 mg Tab) 2 Tablets By Mouth every 6 hours as needed for headache. Refills: 0. Medications to Continue with No Changes Other Medications acetaminophen-oxycodone (Percocet 5 mg-325 mg oral tablet) 1 Tablets By Mouth every 6 hours as needed as needed for pain. Refills: 0. albuterol (albuterol HFA 90 mcg/inh MDI) 2 Puffs Inhalation every 4 hours as needed for wheezing. Refills: 3. calcium carbonate (calcium 500 mg tablets) 2 Tablets By Mouth 2 times a day. Refills: 3. cholecalciferol (cholecalciferol 50,000 intl units oral capsule) 1 Capsules By Mouth every 7 days. Refills: 1. ciclopirox topical (Ciclodan 8% topical solution) 1 Application Topical every day. Apply to great toe after shower , file nail, daily to affected area. Refills: 3. cyanocobalamin (Vitamin B12 1000 mcg Tab) 1 Tablets By Mouth every day. Refills: 0. cyclobenzaprine (cyclobenzaprine 10 mg Tab) 1 Tablets By Mouth 3 times a day as needed for spasm. Refills: 0. diclofenac topical (Voltaren Gel 1% Gel) 1 Application Topical 4 times a day as needed for pain. Refills: 0. escitalopram (escitalopram 10 mg Tab) 1 Tablets By Mouth every day. Refills: 3. ferrous sulfate (ferrous sulfate 325 mg Tab) 1 Tablets By Mouth every day. Refills: 3. ibuprofen (ibuprofen 600 mg Tab) 1 Tablets By Mouth every 8 hours as needed Pain/Fever. Refills: 0. lidocaine topical (lidocaine Top 5% film Patch) 1 Patches Topical every day. apply 12 hours on and 12 hours off daily. Refills: 0. multivitamin with minerals (One A Day Women's Complete oral tablet) 1 Tablets By Mouth every day. Refills: 0. naproxen (Naprosyn 500 mg Tab) 1 Tablets By Mouth 2 times a day. Refills: 0. ondansetron (Zofran ODT 4 mg Tab-Dis) 1 Tablets By Mouth every 6 hours. Refills: 0. pantoprazole (Pantoprazole [address] Tab) 1 Tablets By Mouth every day. Refills: 4. predniSONE (predniSONE 10 mg Tab) 1 Dose Separtor By Mouth As Directed. Take 3 tabs by mouth daily x5 days, then 2 tabs daily x5 days, then 1 tab daily x5 days.. Refills: 0. tamsulosin (Flomax 0.4 mg Cap) 1 Capsules By Mouth every day. Refills: 0. PATIENT EDUCATION INFORMATION: Instructions: Tension Headache, Adult, Ficr-[id number] Follow up: With: Address: When: Elayne Adler Within 1 to 2 days, only if needed DIAGNOSIS: Headache Normal [facility] ED Note-Nursingon 02-18-2025 ED Note-Nursing ED Note-Nursing This RN in to medicate patient as ordered. Patient is unhappy with medications ordered. She is unhappy that we have not drawn any labs or imaging. She states she has to walk home and cannot take benadryl. Patient also mentions multiple times that she has been waiting for two hours and she came in by ambulance. PA returned to the bedside to speak with patient about what has been ordered and patient refused to answer if she wanted further workup. Patient is complaining of leg swelling which is not appreciated by this RN or treating PA. Patient is asking to see another doctor, she was advised that the other physician is very busy but we would try. Normal [facility] ED Note-Physicianon 02-19-20 ED Note-Physician ED Note-Physician Basic Information Time Seen: Wendy BRIONES, Delia Baires 02/18/2025 01:06 Chief Complaint Headache started this morning, home motrin not helping. +nausea History of Present Illness Patient is a 54-year-old female who presents to the ED via EMS with a headache that began this morning. Patient states she has a history of headaches and notes this feels similar to that. She describes it as being located in the left ocular region. Patient did take Motrin this morning with no relief in symptoms. Patient states she believes she had Tylenol earlier this evening around 1600. Patient states headaches in the past have been secondary to sinus infections, however she is not having congestion at this time. She does note nausea but denies any vomiting. Patient adds that she developed right lower extremity swelling today as well. Patient denies any new changes in vision. Review of Systems A 10 point review of systems is negative except as noted above. Medical and Surgical History: Reviewed and noted Social history: Lives at home Family History: Reviewed. Tobacco: Use Physical Exam Vitals & Measurements T: 36.5 ???C(Oral) HR: 78(Monitored) RR: 16 BP: 127/78 SpO2: 94% HT: 170.18 cm WT: 102 kg BMI: 35.22 General: The patient appears well and in no apparent distress. Patient is resting comfortably on cart. Skin: Warm, dry, no pallor noted. Head: Normocephalic, atraumatic Neck: No JVD Eye: PERRLA, EOMI ENT: Moist mucus membranes Cardiovascular: Regular rate normal peripheral perfusion Respiratory: No respiratory distress no accessory muscle use no obvious audible wheezing Musculoskeletal: normal ROM, no deformity, no unilateral lower extremity edema, erythema, or increased warmth GI: Soft no obvious distention. No rebound or rigidity. No guarding. No tenderness. 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 Patient is hemodynamically stable and afebrile. Patient notes she has a history of headaches and originally stated that today's headache feels consistent with prior. I discussed that I did not feel imaging was warranted today and patient was agreeable. Toradol, Benadryl, Reglan were ordered. Prior to administration, patient became upset stated that she felt imaging and lab work was warranted. I again went back into the room and discussed this with patient. Patient notes subjective right lower extremity swelling, however on exam there is no unilateral lower extremity edema, erythema, or increased warmth appreciated. There are no focal neurological deficits. Lab work and imaging is thus obtained. Patient care has been handed off to my supervising physician and disposition is awaiting complete workup. CT brain was within normal limits. Patient laboratory studies were unremarkable. I discussed the treatment of the headache with the patient. She refuses the IV medication. She would prefer oral medication. Previous chart suggest that Fioricet has been effective. Patient be sent home with 2 Fioricet from here and a prescription for Fioricet at home. Assessment/Plan Headache (R51.9: Headache, unspecified) Orders: APAP/butalbital/caffeine, 2 tab(s), Oral, q6hr for headache, 20 tab(s), Refill(s) 0 APAP/butalbital/caffeine, 2 tab(s), Tab, Oral, Once, Stop date 02/18/25 6:02:00 EDT, STAT, Start date 02/18/25 6:02:00 EDT Medications Administered Given ketorolac 30 mg/mL Inj 1 mL, 30 mg, IV Push Disposition Plan Patient Discharge Condition Stable Discharge Disposition Home Discharge Prescription List Prescriptions APAP/butalbital/caffeine 325 mg-50 mg-40 mg Tab, 2 tab(s), Oral, q6hr, PRN Follow-up With When Contact Information Elayne Adler Within 1 to 2 days, only if needed Additional Instructions: Patient Education Tension Headache, Adult, Bawq-ak-Ydqw Attestation Patient seen and evaluated by the physician accounting administrative assistant. Attending physician was present in the emergency department and supervised care. This visit was performed by both the physician and an APC. I performed all aspects of the MDM as documented. This report was transcribed using voice recognition software. Every effort was made to ensure accuracy, however, inadvertently computerized director of retail analytics mistakes may be present. I performed a substantive part of the MDM during the patient???s E/M visit. I personally made or approved the documented management plan and acknowledge its risk of complications. (Independent Interpretation) My (EKG/X-Ray/US/CT as applicable) interpretation as above. (Discussion) Management/test interpretation discussed with APC. Problem List/Past Medical History Ongoing Abdominal fullness Abdominal pain Acute constipation Allergic (more content not included)... Normal [facility] Comment on above: Result Comment: Elec tronically Signed By: Delia Nguyen PA-C\.br\Date and Time Signed: 02/18/25 01:33 EDT\.br\Electronically Co-Signed By: Iban Haji MD\.br\Date and Time Co-Signed: 02/18/25 06:09 EDT ED Patient Summaryon 025 ED Patient Summary ED Patient Summary [place] [address] Patient Discharge Instructions Person Information Name: JANA CABALLERO Age: 54 Years Arrival Date: 02/17/2025 22:52:27 Discharge Diagnosis: Headache Primary Care Physician: Elayne Sanchez Provider Information Primary Provider: Iban Haji MD Advanced Asset Management Analyst:Delia Nguyen PA-C The exam and treatment you received in the Emergency Department were for an urgent problem and are not intended as complete care. It is important that you follow up with a doctor, nurse practitioner, or physician???s accounting administrative assistant for ongoing care. If your symptoms become worse or you do not improve as expected and you are unable to reach your usual health care provider, you should return to the Emergency Department. We are available 24 hours a day. JANA CABALLERO has been given the following list of patient education materials, prescriptions and follow-up instructions: Follow-up Instructions: With: Address: When: Elayne Gomezcross Within 1 to 2 days, only if needed In the event that this physician does not participate in your insurance network, please consult with your insurance company to find a nearby participating provider. Patient Education Materials: Tension Headache, Adult, Cchx-uv-Ezlo A MESSAGE TO ALL PATIENTS REGARDING OPIOIDS PRESCRIPTION OPIOIDS: WHAT YOU NEED TO KNOW Prescription opioids can be used to help relieve kilshheg-kv-mpkmij pain and are often prescribed following a surgery or injury, or for certain health conditions. These medications can be an important part of the treatment but also come with serious risks. It is important to work with your healthcare provider to make sure you are getting the safest, most effective care. WHAT ARE THE RISKS AND SIDE EFFECTS OF OPIOID USE? Prescription opioids carry serious risks of addiction and overdose, especially with prolonged use. An opioid overdose, often marked by slowed breathing, can cause sudden . The use of prescription opioids can have a number of side effects as well, even when taken as directed: ??? Tolerance???meaning you might need to take more of the medication for the same pain relief ??? Physical dependence???meaning you have symptoms of withdrawal when a medication is stopped ??? Increased sensitivity to pain ??? Constipation ??? Nausea, vomiting, and dry mouth ??? Sleepiness and dizziness ??? Confusion ??? Depression ??? Low levels of testosterone that can result in lower sex drive, energy, and strength ??? Itching and sweating RISKS ARE GREATER WITH: ??? History of drug misuse, substance use disorder, or overdose ??? Mental health conditions (such as depression or anxiety) ??? Sleep apnea ??? Older age (65 years and older) ??? Avoid alcohol while taking prescription opioids. Also, unless specifically advised by your health care provider, medications to avoid include: ??? Benzodiazepines (such as Xanax or Valium) ??? Muscle relaxants (such as Soma or Flexeril) ??? Hypnotics (such as Ambien or Lunesta) ??? Other prescription opioids KNOW YOUR OPTIONS Talk to your health care provider about ways to manage your pain that don???t involve prescription opioids. Some of these options may actually work better and have fewer risks and side effects. Options may include: ??? Pain relievers such as acetaminophen, ibuprofen, and naproxen ??? Some medication that are also used for depression or seizures ??? Physical therapy and exercise ??? Cognitive behavioral therapy, a psychological, goal-directed approach, in which patients learn how to modify physical, behavioral, and emotional triggers of pain and stress. IF YOU ARE PRESCRIBED OPIOIDS FOR PAIN: ??? Never take opioids in greater amounts or more often than prescribed. ??? Follow up with your primary health care provider. o Work together to create a plan on how to manage your pain. o Talk about ways to help manage your pain that don???t involve prescription opioids. o Talk about any and all concerns and side effects. ??? Help prevent misuse and abuse o Never sell or share prescription opioids. o Never use another person???s prescription opioids. ??? Store prescription opioids in a secure place and out of reach of others (this may include visitors, children, friends, and family). ??? Safely dispose of unused prescription opioids: Find your community drug take-back program or your pharmacy mail-back program, or flush them down the toilet, following guidance from the Food and Drug Administration (www.fda.gov/Drugs/Resource sForYou). ??? Visit www.cdc.gov/drugoverdose to learn about the risks of opioids abuse and overdose. ??? If you believe you may be struggling with addiction, tell your health neonatal critical care nurse and ask for guidance or call [facility] National He (more content not included)... Normal [facility] HEMATOLOGYOrdered By: SYSTEM SYSTEM on 02-18-2025 Basophils/100 WBC (Bld) 3.7 % High 0.0 - 2.0 % Remisol Heme Basophils/Leukocytes Auto (Bld) [Pure # fraction] 0.2 E9/L Normal 0.0 - 0.2 E9/L Remisol Heme Eosinophils (Bld) [#/Vol] 0.4 E9/L Normal 0.0 - 0.5 E9/L Remisol Heme Eosinophils/100 WBC (Bld) 8.2 % High 0.0 - 8.0 % Remisol Heme Erythrocyte distribution width (RBC) [Ratio] 15.2 % High 10.9 - 14.2 % Remisol Heme Hematocrit (Bld) [Volume fraction] 33.3 % Low 34.0 - 46.0 % Remisol Heme Hemoglobin (Bld) [Mass/Vol] 11.3 g/dL Low 12.0 - 16.0 gm/dL Remisol Heme Lymphocytes (Bld) [#/Vol] 1.8 E9/L Normal 1.0 - 4.0 E9/L Remisol Heme Lymphocytes/100 WBC (Bld) 34.5 % Normal 14.0 - 50.0 % Remisol Heme MCH (RBC) [Entitic mass] 28.2 pg Normal 27.0 - 34.0 pg Remisol Heme MCHC (RBC) [Mass/Vol] 34.0 g/dL Normal 31.4 - 36.0 gm/dL Remisol Heme MCV (RBC) [Entitic vol] 83.1 fL Normal 80.0 - 100.0 fL Remisol Heme Monocytes (Bld) [#/Vol] 0.4 E9/L Normal 0.2 - 1.0 E9/L Remisol Heme Monocytes/100 WBC (Bld) 7.0 % Normal 4.0 - 14.0 % Remisol Heme Neutrophils (Bld) [#/Vol] 2.4 E9/L Normal 2.0 - 7.5 E9/L Remisol Heme Neutrophils/100 WBC (Bld) 46.6 % Normal 36.0 - 75.0 % Remisol Heme Platelet 210.0 E9/L Normal 150.0 - 500.0 E9/L Remisol Heme Platelet mean volume (Bld) [Entitic vol] 8.3 fL Normal 6.4 - 10.8 fL Remisol Heme RBC (Bld) [#/Vol] 4.0 E12/L Low 4.3 - 5.9 E12/L Remisol Heme WBC corrected for nucl RBC Auto (Bld) [#/Vol] 5.1 E9/L Normal 4.0 - 11.0 E9/L Remisol Heme PT & PTTon 02-18-2025 aPTT Coag (PPP) [Time] 30.2 second(s) Normal 25.1-36.5 [facility] Comment on above: Result Comment: Para meter 15 days - 4 weeks 1 - 5 months 6 - 11 months 1 - 5 years 6 - 10 years 11 - 17 years PTT Mean: 35.4 (27.6-45.6) Mean: 33.5 (24.8-40.7) Mean: 32.4 (25.1-40.7) Mean: 31.6 (24.0-39.2) Mean: 31.6 (26.9-38.7) Mean: 31.0 (24.6-38.4) Pediatric Reference ranges were obtained from a study by Antoni Smart et al. prepared from 1437 samples obtained at 7 different centers using the same coagulation reagent and instrumentation as [facility]. Currently there are no coagulation studies available worldwide for children to 14 days, and no normal ranges. Heparin therapeutic range (represented by Anti-Factor Xa activity of 0.2 - 0.4 U/mL) corresponds to PTT of 56.6 - 109.0 sec. Performed By: #### 1 [id number] #### [facility] [facility] [address] [place] [address] INR Coag (PPP) [Relative time] 1.04 {INR} Invalid Interpretation Code [facility] Comment on above: Result Comment: INR results are specifically intended to assess patients stabilized on long-term Anticoagulation therapy suggested INR???s ???Less Intensive Anticoagulation??? 2.0 ??? 3.0 Conventional Range 3.0 ??? 4.5 Performed By: #### 1 [id number] #### [facility] [address] [place] [address] PT Coag (PPP) [Time] 11.7 second(s) Normal 9.4-12.5 [facility] Comment on above: Result Comment: 15 d ays - 4 weeks 1 - 5 months 6 -11 months 1 ??? 5 years 6 ??? 10 years 11 -17 years Mean: 11.2 (9.5 ??? 12.6) Mean: 11.0 (9.7 ??? 12.8) Mean: 11.0 (9.8 ??? 13.0) Mean: 11.3 (9.9 ??? 13.4) Mean: 11.7 (10.0 ??? 14.6) Mean: 11.8 (10.0 - 14.1) Pediatric Reference ranges were obtained from a study by Antoni Smart et al. prepared from 1437 samples obtained at 7 different centers using the same coagulation reagent and instrumentation as [facility]. Currently there are no coagulation studies available worldwide for children to 14 days, and no normal ranges. Performed By: #### 1 [id number] #### [facility] [address] [place] [address] Troponin 0 Hr.on 02-18-2025 Troponin HS 6.40 pg/mL Low 10.10-27.10 [facility] Comment on above: Result Comment: The 95% CI (Confidence Interval) PPV (Positive Predictive Value) for myocardial infarction in females is 38 pg/mL, in males 51 pg/mL. The results should be used in conjunction with clinical conditions of myocardial infarction. (Access High Sensitivity Troponin I Instructions For Use, Cely Taggo, April 2018) Performed By: #### 1 [id number] #### [facility] [address] [place] [address] eGFRon 02-18-2025 eGFR 111 mL/min/1.73 m2 Normal >=59 [facility] Comment on above: Performed By: #### 1 [id number] #### [facility] [address] [place] [address] ED Clinical Summaryon 2024 ED Clinical Summary ED Clinical Summary [address] [address] ED Clinical Summary Person Information Name: JANA CABALLERO [facility] Age: 54 Years : 1970 Sex: Female Language: Syrian PCP: Brigitte Carpenter Marital Status: Phone: [phone] Visit Id: Visit Reason: Cough; Sinus Pain/Congestion; Headache; HEADACHES Speciality: Acuity: 4 Enc Type: Emergency Med Service: Emergency Arrival: 12/15/2024 19:50:26 Discharge: 12/15/2024 20:31:13 LOS: 000 00:41 Checkin: 12/15/2024 19:50:26 Checkout: 12/15/2024 20:31:13 Dispo Type: Home (Routine DC) EVENTS: Event Name Event Status Request Date/Time Start Date/Time Complete Date/Time Arrive Complete 12/15/2024 19:50:26 12/15/2024 19:50:26 12/15/2024 19:50:26 Document Home Meds Request 12/15/2024 19:50:26 Triage Complete 12/15/2024 19:50:26 12/15/2024 19:56:31 12/15/2024 19:56:31 Registration Complete 12/15/2024 19:54:03 12/15/2024 19:54:03 12/15/2024 19:54:03 Reg Complete Request 12/15/2024 19:54:03 Reg Bed Request Complete 12/15/2024 19:54:04 12/15/2024 19:54:04 12/15/2024 19:54:04 Dr Exam Complete 12/15/2024 19:56:46 12/15/2024 19:56:46 12/15/2024 19:56:46 Registration Start 12/15/2024 19:56:46 12/15/2024 19:56:59 Bed Assign Complete 12/15/2024 19:56:59 12/15/2024 19:56:59 12/15/2024 19:56:59 RN Exam Complete 12/15/2024 19:56:59 12/15/2024 20:30:41 12/15/2024 20:30:41 Dr Exam Complete 12/15/2024 19:59:05 12/15/2024 19:59:05 12/15/2024 19:59:05 Meds Admin Complete 12/15/2024 20:14:56 12/15/2024 20:28:40 Discharge Complete 12/15/2024 20:17:08 12/15/2024 20:31:17 12/15/2024 20:31:17 Transfer Complete 12/15/2024 20:31:17 12/15/2024 20:31:17 12/15/2024 20:31:17 ADDRESS: [address] [facility] [id number] PHYS DOC NOTES: MEDICAL INFORMATION: Prescriptions Given: New Medications [id number], [address] [place], [place] [id number], [phone] amoxicillin-clavulanate (Augmentin 875 mg-125 mg Tab) 1 Tablets By Mouth every 12 hours for 10 Days. Refills: 0. APAP/butalbital/caffeine (APAP/butalbital/caffeine 325 mg-50 mg-40 mg oral capsule) 1 Capsules By Mouth every 4 hours as needed for pain for 3 Days. Refills: 0. Medications to Continue with No Changes Other Medications acetaminophen-oxycodone (Percocet 5 mg-325 mg oral tablet) 1 Tablets By Mouth every 6 hours as needed as needed for pain. Refills: 0. albuterol (albuterol HFA 90 mcg/inh MDI) 2 Puffs Inhalation every 4 hours as needed for wheezing. Refills: 3. calcium carbonate (calcium 500 mg tablets) 2 Tablets By Mouth 2 times a day. Refills: 3. cholecalciferol (cholecalciferol 50,000 intl units oral capsule) 1 Capsules By Mouth every 7 days. Refills: 1. ciclopirox topical (Ciclodan 8% topical solution) 1 Application Topical every day. Apply to great toe after shower , file nail, daily to affected area. Refills: 3. cyanocobalamin (Vitamin B12 1000 mcg Tab) 1 Tablets By Mouth every day. Refills: 0. cyclobenzaprine (cyclobenzaprine 10 mg Tab) 1 Tablets By Mouth 3 times a day as needed for spasm. Refills: 0. diclofenac topical (Voltaren Gel 1% Gel) 1 Application Topical 4 times a day as needed for pain. Refills: 0. escitalopram (escitalopram 10 mg Tab) 1 Tablets By Mouth every day. Refills: 3. ferrous sulfate (ferrous sulfate 325 mg Tab) 1 Tablets By Mouth every day. Refills: 3. ibuprofen (ibuprofen 600 mg Tab) 1 Tablets By Mouth every 8 hours as needed Pain/Fever. Refills: 0. lidocaine topical (lidocaine Top 5% film Patch) 1 Patches Topical every day. apply 12 hours on and 12 hours off daily. Refills: 0. multivitamin with minerals (One A Day Women's Complete oral tablet) 1 Tablets By Mouth every day. Refills: 0. naproxen (Naprosyn 500 mg Tab) 1 Tablets By Mouth 2 times a day. Refills: 0. ondansetron (Zofran ODT 4 mg Tab-Dis) 1 Tablets By Mouth every 6 hours. Refills: 0. pantoprazole (Pantoprazole [address] Tab) 1 Tablets By Mouth every day. Refills: 4. predniSONE (predniSONE 10 mg Tab) 1 Dose Separtor By Mouth As Directed. Take 3 tabs by mouth daily x5 days, then 2 tabs daily x5 days, then 1 tab daily x5 days.. Refills: 0. tamsulosin (Flomax 0.4 mg Cap) 1 Capsules By Mouth every day. Refills: 0. PATIENT EDUCATION INFORMATION: Instructions: Otitis Media, Adult, [id number] Follow up: With: Address: When: Brigitte Garcia [facility] [address], [facility] A, [facility] [employer] [address] [place] [address] Independent IP ([employer] In 3 days 12/18/2024 Comments: Call Dr for diagnosis based follow up DIAGNOSIS: Headache; Left otitis media Normal [facility] ED Note-Physicianon 12-16-19 ED Note-Physician ED Note-Physician Basic Information Time Seen: Gustavo BRIONES, Wes Jones. 12/15/2024 19:56 Chief Complaint Pt. presents to ED for headache, cough and congestion. Pt. treated for pneumonia 2 weeks ago. History of Present Illness A 54-year-old female reports to the ED with concerns of headache, cough and congestion. Reports that she was treated 2 weeks ago for pneumonia. Reports taking her last dose of antibiotic today. States that she believes it was doxycycline. She reports that she is now having left-sided ear pain, as well as headache. Denies any vision changes. Reports feels unwell. Denies any known sick contacts. Denies any known allergies to any medications. Review of Systems no other aggravating or relieving factors no other associated symptoms no other prior treatments or complaints. Family: Reviewed and noncontributory Social: lives at home Review of systems negative unless otherwise specified in the HPI. Physical Exam Vitals & Measurements T: 36.4 ???C(Oral) HR: 76(Peripheral) RR: 20 BP: 142/75 SpO2: 98% HT: 170 cm WT: 100 kg BMI: 34.6 General: The patient appears well and in no apparent distress. Patient is resting comfortably on bed. afebrile Skin: Warm, dry, no pallor noted. Head: Normocephalic, atraumatic Neck: No JVD Eye: PERRLA, EOMI ENT: Moist mucus membranes. Pharynx pink moist no erythema or exudates. Left side TM is erythematous and bulging. Right side TM clear. Cardiovascular: Regular rate. normal peripheral perfusion. Radial pulses +2 bilaterally Respiratory: No respiratory distress. no accessory muscle use. no obvious audible wheezing. Lung sounds clear auscultation Chest Wall: no deformity Musculoskeletal: normal ROM, no deformity, no swelling GI: No obvious distention Neurological: A&Ox4. moves all extremities equal strength and symmetry. no focal deficits Psychiatric: Cooperative and appropriate Medical Decision Making MEDICAL DECISION MAKING Number and Complexity of Problems Differential Diagnosis: [] [facility] Data External documents reviewed: [] My EKG interpretation: [] My CT interpretation: [] My X-ray interpretation: [] My Ultrasound interpretation: [] Decision rules/scores evaluated: [] Discussed with: [] Treatment and Disposition ED Course: A 54-year-old female reports emergency department with concern of headache as well as left-sided ear pain. Reports has felt unwell for the last couple of days. She states that she did finish up her antibiotic for pneumonia. Examined patient does reveal that she is afebrile no acute distress. Positive for left-sided otitis media on exam. Discussed with patient. Patient was given APAP/butalbital/caffeine here in the emergency department, as well as Augmentin for antibiotic coverage. She was understanding. Discussed return precautions. Follow-up with your primary care provider in 3 to 5 days. If symptoms worsen, do not improve, or new symptoms arise please report back to emergency department for further evaluation. The patient was understanding and agreeable to plan moving forward. Shared decision making: [] Code status: [] Assessment/Plan Headache (R51.9: Headache, unspecified) Left otitis media (H66.92: Otitis media, unspecified, left ear) Orders: amoxicillin-clavulanate, 1 tab(s), Oral, q12hr for 10 day(s), 20 tab(s), Refill(s) 0, [id number], 170, cm, 12/15/24 19:56:00 EDT, Height/Length Dosing, 100, kg, 12/15/24 19:56:00 EDT, Weight Dosing amoxicillin-clavulanate, 1 tab(s), Tab, Oral, Once, Stop date 12/15/24 20:14:00 EDT, STAT, Start date 12/15/24 20:14:00 EDT APAP/butalbital/caffeine, 1 cap(s), Oral, q4hr for pain for 3 day(s), 12 cap(s), Refill(s) 0, [facility] #[id number], 170, cm, 12/15/24 19:56:00 EDT, Height/Length Dosing, 100, kg, 12/15/24 19:56:00 EDT, Weight Dosing APAP/butalbital/caffeine, 1 tab(s), Tab, Oral, Once, Stop date 12/15/24 20:14:00 EDT, STAT, Start date 12/15/24 20:14:00 EDT Medications Administered Given APAP/butalbital/caffeine 325 mg-50 mg-40 mg Tab, 1 tab(s), Oral Augmentin 875 mg-125 mg Tab, 1 tab(s), Oral Disposition Plan Patient Discharge Condition stable Discharge Disposition to home Discharge Prescription List Prescriptions APAP/butalbital/caffeine 325 mg-50 mg-40 mg oral capsule, 1 cap(s), Oral, q4hr, PRN Augmentin 875 mg-125 mg Tab, 1 tab(s), Oral, q12hr Follow-up With When Contact Information Brigitte Garcia In 3 days 12/18/2024 EDT [address], [facility] A [address] [address] Business (1) Additional Instructions: Call Dr for diagnosis based follow up Patient Education Otitis Media, Adult, Jgyv-zu-Kipy Attestation Patient seen and evaluated by the physician accounting administrative assistant. Attending physician was present in the emergency department and supervised care. This visit was performed by both the physician and an APC. I performed all aspects of the MDM as documented. This report was transcr (more content not included)... Normal [facility] Comment on above: Result Comment: Elec tronically Signed By: Wes Chen PA-C\.br\Date and Time Signed: 12/15/24 20:32 EDT\.br\Electronically Co-Signed By: Dann Whitmore M.D.\.br\Date and Time Co-Signed: 12/15/24 20:48 EDT ED Patient Summaryon 025 ED Patient Summary ED Patient Summary [address] [address] Patient Discharge Instructions Person Information Name: JANA CABALLERO Age: 54 Years Arrival Date: 12/15/2024 19:50:26 Discharge Diagnosis: Headache; Left otitis media Primary Care Physician: Brigitte Carpenter Provider Information Primary Provider: Dann Whitmore M.D. Advanced Asset Management Analyst:Wes Chen PA-C The exam and treatment you received in the Emergency Department were for an urgent problem and are not intended as complete care. It is important that you follow up with a doctor, nurse practitioner, or physician???s accounting administrative assistant for ongoing care. If your symptoms become worse or you do not improve as expected and you are unable to reach your usual health care provider, you should return to the Emergency Department. We are available 24 hours a day. JANA CABALLERO has been given the following list of patient education materials, prescriptions and follow-up instructions: Follow-up Instructions: With: Address: When: Brigitte Garcia [address] [place] [address] A, [place] [phone] Business (1) In 3 days 12/18/2024 Comments: Call Dr for diagnosis based follow up In the event that this physician does not participate in your insurance network, please consult with your insurance company to find a nearby participating provider. Patient Education Materials: Otitis Media, Adult, Bqcc-zs-Wbtp A MESSAGE TO ALL PATIENTS REGARDING OPIOIDS PRESCRIPTION OPIOIDS: WHAT YOU NEED TO KNOW Prescription opioids can be used to help relieve xdsicass-vw-kwrgue pain and are often prescribed following a surgery or injury, or for certain health conditions. These medications can be an important part of the treatment but also come with serious risks. It is important to work with your healthcare provider to make sure you are getting the safest, most effective care. WHAT ARE THE RISKS AND SIDE EFFECTS OF OPIOID USE? Prescription opioids carry serious risks of addiction and overdose, especially with prolonged use. An opioid overdose, often marked by slowed breathing, can cause sudden . The use of prescription opioids can have a number of side effects as well, even when taken as directed: ??? Tolerance???meaning you might need to take more of the medication for the same pain relief ??? Physical dependence???meaning you have symptoms of withdrawal when a medication is stopped ??? Increased sensitivity to pain ??? Constipation ??? Nausea, vomiting, and dry mouth ??? Sleepiness and dizziness ??? Confusion ??? Depression ??? Low levels of testosterone that can result in lower sex drive, energy, and strength ??? Itching and sweating RISKS ARE GREATER WITH: ??? History of drug misuse, substance use disorder, or overdose ??? Mental health conditions (such as depression or anxiety) ??? Sleep apnea ??? Older age (65 years and older) ??? Avoid alcohol while taking prescription opioids. Also, unless specifically advised by your health care provider, medications to avoid include: ??? Benzodiazepines (such as Xanax or Valium) ??? Muscle relaxants (such as Soma or Flexeril) ??? Hypnotics (such as Ambien or Lunesta) ??? Other prescription opioids KNOW YOUR OPTIONS Talk to your health care provider about ways to manage your pain that don???t involve prescription opioids. Some of these options may actually work better and have fewer risks and side effects. Options may include: ??? Pain relievers such as acetaminophen, ibuprofen, and naproxen ??? Some medication that are also used for depression or seizures ??? Physical therapy and exercise ??? Cognitive behavioral therapy, a psychological, goal-directed approach, in which patients learn how to modify physical, behavioral, and emotional triggers of pain and stress. IF YOU ARE PRESCRIBED OPIOIDS FOR PAIN: ??? Never take opioids in greater amounts or more often than prescribed. ??? Follow up with your primary health care provider. o Work together to create a plan on how to manage your pain. o Talk about ways to help manage your pain that don???t involve prescription opioids. o Talk about any and all concerns and side effects. ??? Help prevent misuse and abuse o Never sell or share prescription opioids. o Never use another person???s prescription opioids. ??? Store prescription opioids in a secure place and out of reach of others (this may include visitors, children, friends, and family). ??? Safely dispose of unused prescription opioids: Find your community drug take-back program or your pharmacy mail-back program, or flush them down the toilet, following guidance from the Food and Drug Administration (www.fda.gov/Drugs/Resource sForYou). ??? Visit www.cdc.gov/drugoverdose to learn about the risks of opioids abuse and overdose (more content not included)... Normal [facility] ED Note-Physicianon 12-08-19 ED Note-Physician ED Note-Physician Basic Information Time Seen: Bhupendra Dale PA-C 12/04/2024 17:57 Chief Complaint pt reports cough/fatigue/conesgtion with acid reflux that started yesterday into today. states has a burning in her throat. History of Present Illness 54-year-old female comes to the ED for evaluation of flulike symptoms. Symptoms started yesterday with cough congestion and nausea. She has had some low-grade fevers. No chest pain or shortness of breath. No prior treatments. Review of Systems A 10 point review of systems is negative except as noted above. Medical and Surgical History: Reviewed and noted Social history: Lives at home Tobacco: Denies Physical Exam Vitals & Measurements T: 38.1 ???C(Oral) HR: 98(Peripheral) RR: 18 BP: 161/83 SpO2: 98% HT: 170 cm WT: 100.6 kg BMI: 34.81 Nurses notes and vital signs reviewed and patient is not hypoxic. General: Well-appearing, does not appear ill Skin: Warm, dry. Head: Atraumatic. Neck: No JVD. Eye: Normal conjunctiva. Ears, Nose, Mouth, and Throat: Sinus congestion, no difficulty with speaking or swallowing Cardiovascular: Not tachycardic Chest wall: Respiratory: Respirations are nonlabored. Back: Normal range of motion. Musculoskeletal: Normal ROM with no gross deformity. Gastrointestinal: Soft and nontender Urological: Neurological: Awake and alert. No focal deficits. Follows commands. Psychiatric: Cooperative. Medical Decision Making Patient presents with cough congestion and nausea. She is overall well-appearing and nontoxic. No acute chest pain or shortness of breath. Chest x-ray of no acute infiltrates. She is treated symptomatically with Phenergan DM and discharged home PCP follow-up. Patient was encouraged to return to the ED if symptoms worsen or change. Assessment/Plan Cough (R05.9: Cough, unspecified) Fever (R50.9: Fever, unspecified) Nausea (R11.0: Nausea) Orders: acetaminophen, 975 mg = 3 tab(s), Tab, Oral, Once, Stop date 12/04/24 19:03:00 EDT, STAT, Start date 12/04/24 19:03:00 EDT, 12/04/24 19:03:00 EDT dextromethorphan-promethazi ne, 5 mL, Oral, q6hr for cough for 5 day(s), 200 mL, Refill(s) 0, [facility] #[id number], 170, cm, 12/04/24 17:58:00 EDT, Height/Length Dosing, 100.6, kg, 12/04/24 17:58:00 EDT, Weight Dosing promethazine, 25 mg = 1 tab(s), Tab, Oral, Once, Stop date 12/04/24 18:00:00 EDT, STAT, Start date 12/04/24 18:00:00 EDT, 12/04/24 18:00:00 EDT XR Chest Single View Medications Administered Given promethazine 25 mg Tab, 25 mg, Oral Disposition Plan Patient Discharge Condition Disposition: Discharged home Condition: Improved and stable Counseled: Patient and/or family were counseled to workup, results, treatment plan and follow-up recommendations Discharge Prescription List Prescriptions dextromethorphan-promethazi ne 15 mg-6.25 mg/5 mL Oral Syrup 5 mL, 5 mL, Oral, q6hr, PRN Follow-up With When Contact Information Leon Haro In 3 days 12/07/2024 EDT [address] [facility], [address] [phone] Business (1) Additional Instructions: Patient Education Viral Illness, Adult Attestation I performed a substantive part of the MDM during the patient???s E/M visit. I personally made or approved the documented management plan and acknowledge its risk of complications. (Independent Interpretation) My (EKG/X-Ray/US/CT) interpretation as above. (Discussion) Management/test interpretation discussed with APC. This report was transcribed using voice recognition software. Every effort was made to ensure accuracy, however, inadvertently computerized director of retail analytics mistakes may be present. Appropriate healthcare PPE was used in evaluating this patient. Problem List/Past Medical History Ongoing Abdominal fullness Abdominal pain Acute constipation Allergic rhinitis Anemia B12 deficiency BMI 34.0-34.9,adult Bronchitis DDD (degenerative disc disease), lumbar DDD (degenerative disc disease), lumbosacral Discoloration of skin of toe Dizziness E-coli UTI Exposure to COVID-19 virus Fatigue Flank pain Former smoker Frequency of urination LALO (generalized anxiety disorder) Gastroesophageal reflux disease Hematuria Hiatal hernia History of cervical cancer History of kidney stones HLD (hyperlipidemia) Hydronephrosis with urinary obstruction due to ureteral calculus Hypocalcemia Iron deficiency anemia kidney stones Left-sided low back pain with sciatica Malignant tumor of cervix Mild recurrent major depression Nausea in adult Nicotine dependence, cigarettes, in remission Nocturia Obesity Onychia, toe Onychomycosis Osteoarthritis of left hip Other urethral stricture, female Paresthesia Prediabetes Recurrent headache Renal calculus, right Sciatic pain Scoliosis Screening for colon cancer Screening for lipid disorders Smoker Vertigo Vitamin D deficiency Wellness examination Historical Anemia due to (more content not included)... Normal [facility] Comment on above: Result Comment: Elec tronically Signed By: Bhupendra Dale PA-C\.br\Date and Time Signed: 12/04/24 19:07 EDT\.br\Electronically Co-Signed By: Todd Fleming DO\.br\Date and Time Co-Signed: 12/07/24 07:18 EDT ED Clinical Summaryon 2024 ED Clinical Summary ED Clinical Summary [address] [address] ED Clinical Summary Person Information Name: JANA CABALLERO/[place] Alfredo Age: 54 Years : 1970 Sex: Female Language: Syrian PCP: Brigitte Carpenter Marital Status: Phone: [phone] Visit Id: Visit Reason: Sinus Pain/Congestion; Cough; COUGH-CONGESTION Speciality: Acuity: 4 Enc Type: Emergency Med Service: Emergency Arrival: 12/06/2024 10:28:42 Discharge: 12/06/2024 11:47:03 LOS: 000 01:19 Checkin: 12/06/2024 10:28:42 Checkout: 12/06/2024 11:47:03 Dispo Type: Home (Routine DC) EVENTS: Event Name Event Status Request Date/Time Start Date/Time Complete Date/Time Arrive Complete 12/06/2024 10:28:42 12/06/2024 10:28:42 12/06/2024 10:28:42 Document Home Meds Request 12/06/2024 10:28:42 Triage Complete 12/06/2024 10:28:42 12/06/2024 10:33:37 12/06/2024 10:33:37 Bed Assign Complete 12/06/2024 10:31:00 12/06/2024 10:31:00 12/06/2024 10:31:00 Dr Exam Complete 12/06/2024 10:31:00 12/06/2024 10:34:00 12/06/2024 10:34:00 RN Exam Complete 12/06/2024 10:31:00 12/06/2024 10:35:17 12/06/2024 10:35:17 Registration Complete 12/06/2024 10:32:36 12/06/2024 10:32:36 12/06/2024 10:32:36 Reg Complete Request 12/06/2024 10:32:36 Reg Bed Request Complete 12/06/2024 10:32:36 12/06/2024 10:32:36 12/06/2024 10:32:36 Registration Request 12/06/2024 10:34:00 X-Ray Complete 12/06/2024 10:47:13 12/06/2024 10:49:12 12/06/2024 11:00:13 Dr Exam Complete 12/06/2024 10:50:13 12/06/2024 10:50:13 12/06/2024 10:50:13 Wet Read Request 12/06/2024 11:00:13 Discharge Complete 12/06/2024 11:41:49 12/06/2024 11:47:24 12/06/2024 11:47:24 Transfer Complete 12/06/2024 11:47:24 12/06/2024 11:47:24 12/06/2024 11:47:24 ADDRESS: [address] [facility] [phone] PHYS DOC NOTES: MEDICAL INFORMATION: Prescriptions Given: New Medications [facility] #[id number], [address] [place] [phone], [phone] doxycycline (doxycycline hyclate 100 mg Cap) 1 Capsules By Mouth 2 times a day for 5 Days. Refills: 0. Medications to Continue Taking That Have Changed [facility] [employer] [id number], [address] [place], [place] [id number], [phone] START: predniSONE (predniSONE 50 mg Tab) 1 Tablets By Mouth every day for 5 Days. Refills: 0. Other Medications START: predniSONE (predniSONE 10 mg Tab) 1 Dose Separtor By Mouth As Directed. Take 3 tabs by mouth daily x5 days, then 2 tabs daily x5 days, then 1 tab daily x5 days.. Refills: 0. Medications to Continue with No Changes Other Medications acetaminophen-oxycodone (Percocet 5 mg-325 mg oral tablet) 1 Tablets By Mouth every 6 hours as needed as needed for pain. Refills: 0. albuterol (albuterol HFA 90 mcg/inh MDI) 2 Puffs Inhalation every 4 hours as needed for wheezing. Refills: 3. calcium carbonate (calcium 500 mg tablets) 2 Tablets By Mouth 2 times a day. Refills: 3. cholecalciferol (cholecalciferol 50,000 intl units oral capsule) 1 Capsules By Mouth every 7 days. Refills: 1. ciclopirox topical (Ciclodan 8% topical solution) 1 Application Topical every day. Apply to great toe after shower , file nail, daily to affected area. Refills: 3. cyanocobalamin (Vitamin B12 1000 mcg Tab) 1 Tablets By Mouth every day. Refills: 0. cyclobenzaprine (cyclobenzaprine 10 mg Tab) 1 Tablets By Mouth 3 times a day as needed for spasm. Refills: 0. dextromethorphan-promethazi ne (dextromethorphan-promethaz ine 15 mg-6.25 mg/5 mL Oral Syrup 5 mL) 5 Milliliter By Mouth every 6 hours as needed for cough for 5 Days. Refills: 0. diclofenac topical (Voltaren Gel 1% Gel) 1 Application Topical 4 times a day as needed for pain. Refills: 0. escitalopram (escitalopram 10 mg Tab) 1 Tablets By Mouth every day. Refills: 3. ferrous sulfate (ferrous sulfate 325 mg Tab) 1 Tablets By Mouth every day. Refills: 3. ibuprofen (ibuprofen 600 mg Tab) 1 Tablets By Mouth every 8 hours as needed Pain/Fever. Refills: 0. lidocaine topical (lidocaine Top 5% film Patch) 1 Patches Topical every day. apply 12 hours on and 12 hours off daily. Refills: 0. multivitamin with minerals (One A Day Women's Complete oral tablet) 1 Tablets By Mouth every day. Refills: 0. naproxen (Naprosyn 500 mg Tab) 1 Tablets By Mouth 2 times a day. Refills: 0. ondansetron (Zofran ODT 4 mg Tab-Dis) 1 Tablets By Mouth every 6 hours. Refills: 0. pantoprazole (Pantoprazole [address] Tab) 1 Tablets By Mouth every day. Refills: 4. tamsulosin (Flomax 0.4 mg Cap) 1 Capsules By Mouth every day. Refills: 0. PATIENT EDUCATION INFORMATION: Instructions: Community-Acquired Pneumonia, Adult, Sddk-hk-Peit Follow up: With: Address: When: Brigitte Polo, [address], [employer] [address] [place] [id number] Independent IP ([employer] In 3 days 12/09/2024 Comments: Call to schedule a follow-up appointment with your primary care provider. Take the antibiotic and prednisone as prescribed. Return to (more content not included)... Normal [facility] ED Note-Physicianon 12-07-19 ED Note-Physician ED Note-Physician Basic Information Time Seen: Delia Nguyen PA-C 12/06/2024 10:34 Chief Complaint pt states seen two days ago for this. cough and congestion, not better. states restrepo her lungs when coughing. History of Present Illness Patient is a 54-year-old female with a history of smoking who presents to the ED with worsening cough and congestion. Patient states she was seen in the ED 2 days ago and was diagnosed with an upper respiratory infection and prescribed cough medicine. Patient states she has been taking this, however she does feel she is experiencing a worsening cough. Patient states the cough feels tight and feels anterior chest burning when coughing. She denies any chest pain otherwise or shortness of breath. She denies any known fevers. Review of Systems A 10 point review of systems is negative except as noted above. Medical and Surgical History: Reviewed and noted Social history: Lives at home Family History: Reviewed. Tobacco: Former Physical Exam Vitals & Measurements T: 37 ???C(Oral) HR: 82(Peripheral) RR: 16 BP: 138/76 SpO2: 97% HT: 170 cm WT: 100.6 kg BMI: 34.81 General: The patient appears well and in no apparent distress. Patient is resting comfortably on cart. Skin: Warm, dry, no pallor noted. Head: Normocephalic, atraumatic Neck: No JVD Eye: PERRLA, EOMI ENT: Moist mucus membranes Cardiovascular: Regular rate normal peripheral perfusion Respiratory: Lungs clear to auscultation bilaterally, no respiratory distress no accessory muscle use no obvious audible wheezing Chest Wall: no deformity Musculoskeletal: normal ROM, no deformity, no lower extremity swelling Neurological: A&O moves all extremities equal strength and symmetry Psychiatric: Cooperative and appropriate Medical Decision Making Patient is a 54-year-old female with a history of smoking who presents to the ED with worsening cough and congestion. Patient is hemodynamically stable and afebrile. No ACS symptoms. Chest x-ray is concerning for pneumonia. Patient was updated on the results. She is prescribed prednisone and doxycycline. She will follow-up with her primary care provider. She was advised to return to the ED with any worsening symptoms. Patient is agreeable with the plan and all questions were answered. Assessment/Plan CAP (community acquired pneumonia) (J18.9: Pneumonia, unspecified organism) Orders: doxycycline, 100 mg = 1 cap(s), Oral, BID, X 5 day(s), # 10 cap(s), Refills(s) 0, Pharmacy: [email or web address] #[id number], 170, cm, 12/06/24 10:33:00 EDT, Height/Length Dosing, 100.6, kg, 12/06/24 10:33:00 EDT, Weight Dosing predniSONE, 50 mg = 1 tab(s), Oral, Daily, X 5 day(s), # 5 tab(s), Refills(s) 0, Pharmacy: [email or web address] #[id number], 170, cm, 12/06/24 10:33:00 EDT, Height/Length Dosing, 100.6, kg, 12/06/24 10:33:00 EDT, Weight Dosing XR Chest 2 Views Disposition Plan Patient Discharge Condition stable Discharge Disposition home Discharge Prescription List Prescriptions doxycycline hyclate 100 mg Cap, 100 mg= 1 cap(s), Oral, BID predniSONE 50 mg Tab, 50 mg= 1 tab(s), Oral, Daily Follow-up With When Contact Information Brigitte Garcia In 3 days 12/09/2024 EDT [address], [facility] [place] [phone] Business (1) Additional Instructions: Call to schedule a follow-up appointment with your primary care provider. Take the antibiotic and prednisone as prescribed. Return to the ED with any new or worsening symptoms. Patient Education Community-Acquired Pneumonia, Adult, Bbhr-qq-Zewl Attestation Patient seen and evaluated by the physician accounting administrative assistant. Attending physician was present in the emergency department and supervised care. This visit was performed by both the physician and an APC. I performed all aspects of the MDM as documented. This report was transcribed using voice recognition software. Every effort was made to ensure accuracy, however, inadvertently computerized director of retail analytics mistakes may be present. I performed a substantive part of the MDM during the patient???s E/M visit. I personally made or approved the documented management plan and acknowledge its risk of complications. (Independent Interpretation) My (EKG/X-Ray/US/CT as applicable) interpretation as above. (Discussion) Management/test interpretation discussed with APC. Problem List/Past Medical History Ongoing Abdominal fullness Abdominal pain Acute constipation Allergic rhinitis Anemia B12 deficiency BMI 34.0-34.9,adult Bronchitis DDD (degenerative disc disease), lumbar DDD (degenerative disc disease), lumbosacral Discoloration of skin of toe Dizziness E-coli UTI Exposure to COVID-19 virus Fatigue Flank pain Former smoker Frequency of urination LALO (generalized anxiety disorder) Gastroesophageal reflux disease Hematuria Hiatal hernia History of cervical cancer History of kidney stones HLD (hyperlipidemia) Hydronephrosis with urinary obstruc (more content not included)... Normal [facility] Comment on above: Result Comment: Elec tronically Signed By: Delia Nguyen PA-C\.br\Date and Time Signed: 12/06/24 11:44 EDT\.br\Electronically Co-Signed By: Dann Whitmore M.D.\.br\Date and Time Co-Signed: 12/06/24 13:22 EDT ED Patient Summaryon 025 ED Patient Summary ED Patient Summary [place] [id number] Patient Discharge Instructions Person Information Name: JANA CABALLERO Age: 54 Years Arrival Date: 12/06/2024 10:28:42 Discharge Diagnosis: CAP (community acquired pneumonia) Primary Care Physician: Brigitte Carpenter Provider Information Primary Provider: Dann Whitmore M.D. [employer] Analyst:Delia Nguyen PA-C The exam and treatment you received in the Emergency Department were for an urgent problem and are not intended as complete care. It is important that you follow up with a doctor, nurse practitioner, or physician???s accounting administrative assistant for ongoing care. If your symptoms become worse or you do not improve as expected and you are unable to reach your usual health care provider, you should return to the Emergency Department. We are available 24 hours a day. JANA CABALLERO has been given the following list of patient education materials, prescriptions and follow-up instructions: Follow-up Instructions: With: Address: When: Brigitte Jose [address], [address], [address] [phone] Business (1) In 3 days 12/09/2024 Comments: Call to schedule a follow-up appointment with your primary care provider. Take the antibiotic and prednisone as prescribed. Return to the ED with any new or worsening symptoms. In the event that this physician does not participate in your insurance network, please consult with your insurance company to find a nearby participating provider. Patient Education Materials: Community-Acquired Pneumonia, Adult, Cxeo-ji-Ccva A MESSAGE TO ALL PATIENTS REGARDING OPIOIDS PRESCRIPTION OPIOIDS: WHAT YOU NEED TO KNOW Prescription opioids can be used to help relieve uowxrhqs-ov-eiakkw pain and are often prescribed following a surgery or injury, or for certain health conditions. These medications can be an important part of the treatment but also come with serious risks. It is important to work with your healthcare provider to make sure you are getting the safest, most effective care. WHAT ARE THE RISKS AND SIDE EFFECTS OF OPIOID USE? Prescription opioids carry serious risks of addiction and overdose, especially with prolonged use. An opioid overdose, often marked by slowed breathing, can cause sudden . The use of prescription opioids can have a number of side effects as well, even when taken as directed: ??? Tolerance???meaning you might need to take more of the medication for the same pain relief ??? Physical dependence???meaning you have symptoms of withdrawal when a medication is stopped ??? Increased sensitivity to pain ??? Constipation ??? Nausea, vomiting, and dry mouth ??? Sleepiness and dizziness ??? Confusion ??? Depression ??? Low levels of testosterone that can result in lower sex drive, energy, and strength ??? Itching and sweating RISKS ARE GREATER WITH: ??? History of drug misuse, substance use disorder, or overdose ??? Mental health conditions (such as depression or anxiety) ??? Sleep apnea ??? Older age (65 years and older) ??? Avoid alcohol while taking prescription opioids. Also, unless specifically advised by your health care provider, medications to avoid include: ??? Benzodiazepines (such as Xanax or Valium) ??? Muscle relaxants (such as Soma or Flexeril) ??? Hypnotics (such as Ambien or Lunesta) ??? Other prescription opioids KNOW YOUR OPTIONS Talk to your health care provider about ways to manage your pain that don???t involve prescription opioids. Some of these options may actually work better and have fewer risks and side effects. Options may include: ??? Pain relievers such as acetaminophen, ibuprofen, and naproxen ??? Some medication that are also used for depression or seizures ??? Physical therapy and exercise ??? Cognitive behavioral therapy, a psychological, goal-directed approach, in which patients learn how to modify physical, behavioral, and emotional triggers of pain and stress. IF YOU ARE PRESCRIBED OPIOIDS FOR PAIN: ??? Never take opioids in greater amounts or more often than prescribed. ??? Follow up with your primary health care provider. o Work together to create a plan on how to manage your pain. o Talk about ways to help manage your pain that don???t involve prescription opioids. o Talk about any and all concerns and side effects. ??? Help prevent misuse and abuse o Never sell or share prescription opioids. o Never use another person???s prescription opioids. ??? Store prescription opioids in a secure place and out of reach of others (this may include visitors, children, friends, and family). ??? Safely dispose of unused prescription opioids: Find your community drug take-back program or your pharmacy mail-back program, or flush them down the toilet, following guidance from (more content not included)... Normal [facility] XR Chest 2 Viewson XR Chest 2 Views Exam Date/Time: 12/06/2024 11:00 EDT Reason for Exam: Cough Report IMPRESSION: MILD LINGULAR INFILTRATE, PROBABLY ATELECTASIS AND/OR BRONCHOPNEUMONIA. EXAM: XR Chest 2 Views DATE: 12/06/2024 10:49 AM CLINICAL HISTORY: Cough. COMPARISON: Portable chest 12/04/2024 and two-view chest 03/07/2020. TECHNIQUE: Upright PA and lateral radiographs of the chest were obtained. FINDINGS: A small bandlike opacity of the lingula the left upper lobe has apparently developed since 12/04/2024. The heart remains moderately enlarged. There is no other significant pulmonary infiltrate, pleural effusion, vascular congestion, pneumothorax, or displaced fractures identified. Ordering Provider: Delia Nguyen FINAL REPORT Dictated: 12/06/2024 11:15 am Jean Claude Traylor MD Signed (Electronic Signature): 12/06/2024 11:15 am Signed by: Jean Claude Traylor MD Transcribed by: JG Technologist: FABIANA Bertrand [facility] XR Chest Single Viewon 12-05 XR Chest Single View Exam Date/Time: 12/04/2024 18:42 EDT Reason for Exam: Cough Report IMPRESSION: NO EVIDENCE OF ACTIVE CHEST DISEASE. CLINICAL HISTORY: Cough. COMPARISON: 03/12/2024. COMMENT: AP portable. The heart is upper limits of normal in size. The mediastinum is unremarkable. The lungs appear clear. No infiltration nor pleural effusion is evident. No significant change is noted when compared to the prior exam. Ordering Provider: Bhupendra Dale FINAL REPORT Dictated: 12/05/2024 8:10 am Sam Michael M.D. Signed (Electronic Signature): 12/05/2024 8:10 am Signed by: Sam Michael M.D. Transcribed by: JG Technologist: ARIE Bertrand [facility] ED Clinical Summaryon 2024 ED Clinical Summary ED Clinical Summary [place] [id number] ED Clinical Summary Person Information Name: JANA CABALLERO [facility] Age: 54 Years : 1970 Sex: Female Language: Syrian PCP: Leon Marti Marital Status: Phone: [phone] Visit Id: Visit Reason: Respiratory problem; Sinus Pain/Congestion; Cough; Fatigue; CHEST PAIN, FEVER, ACHES AND CHILLS, WEAKNESS OR FATIGUE Speciality: Acuity: 3 Enc Type: Emergency Med Service: Emergency Arrival: 12/04/2024 17:50:17 Discharge: 12/04/2024 21:20:00 LOS: 000 03:30 Checkin: 12/04/2024 17:50:17 Checkout: 12/04/2024 21:20:00 Dispo Type: Home (Routine DC) EVENTS: Event Name Event Status Request Date/Time Start Date/Time Complete Date/Time Arrive Complete 12/04/2024 17:50:17 12/04/2024 17:50:17 12/04/2024 17:50:17 Document Home Meds Request 12/04/2024 17:50:17 Triage Complete 12/04/2024 17:50:17 12/04/2024 17:58:50 12/04/2024 17:58:50 Bed Assign Complete 12/04/2024 17:54:40 12/04/2024 17:54:40 12/04/2024 17:54:40 Dr Exam Complete 12/04/2024 17:54:40 12/04/2024 17:57:41 12/04/2024 17:57:41 RN Exam Complete 12/04/2024 17:54:40 12/04/2024 18:22:44 12/04/2024 18:22:44 Registration Complete 12/04/2024 17:55:19 12/04/2024 17:55:19 12/04/2024 17:55:19 Reg Complete Request 12/04/2024 17:55:19 Reg Bed Request Complete 12/04/2024 17:55:19 12/04/2024 17:55:19 12/04/2024 17:55:19 EKG Complete 12/04/2024 17:57:09 12/04/2024 18:01:28 Registration Request 12/04/2024 17:57:41 Dr Exam Complete 12/04/2024 18:00:07 12/04/2024 18:00:07 12/04/2024 18:00:07 X-Ray Complete 12/04/2024 18:01:20 12/04/2024 18:13:24 12/04/2024 18:42:01 Meds Admin Complete 12/04/2024 18:01:20 12/04/2024 18:13:27 Wet Read Request 12/04/2024 18:42:01 Meds Admin Complete 12/04/2024 19:03:45 12/04/2024 19:18:39 Discharge Complete 12/04/2024 19:04:08 12/04/2024 21:29:22 12/04/2024 21:29:22 Meds Admin Complete 12/04/2024 20:30:40 12/04/2024 20:58:26 Transfer Complete 12/04/2024 21:29:22 12/04/2024 21:29:22 12/04/2024 21:29:22 ADDRESS: [address] [facility] [id number] PHYS DOC NOTES: MEDICAL INFORMATION: Prescriptions Given: New Medications [facility] #[id number], [address] [place], [place] [id number], [phone] dextromethorphan-promethazi ne (dextromethorphan-promethaz ine 15 mg-6.25 mg/5 mL Oral Syrup 5 mL) 5 Milliliter By Mouth every 6 hours as needed for cough for 5 Days. Refills: 0. Medications to Continue with No Changes Other Medications acetaminophen-oxycodone (Percocet 5 mg-325 mg oral tablet) 1 Tablets By Mouth every 6 hours as needed as needed for pain. Refills: 0. albuterol (albuterol HFA 90 mcg/inh MDI) 2 Puffs Inhalation every 4 hours as needed for wheezing. Refills: 3. calcium carbonate (calcium 500 mg tablets) 2 Tablets By Mouth 2 times a day. Refills: 3. cholecalciferol (cholecalciferol 50,000 intl units oral capsule) 1 Capsules By Mouth every 7 days. Refills: 1. ciclopirox topical (Ciclodan 8% topical solution) 1 Application Topical every day. Apply to great toe after shower , file nail, daily to affected area. Refills: 3. cyanocobalamin (Vitamin B12 1000 mcg Tab) 1 Tablets By Mouth every day. Refills: 0. cyclobenzaprine (cyclobenzaprine 10 mg Tab) 1 Tablets By Mouth 3 times a day as needed for spasm. Refills: 0. diclofenac topical (Voltaren Gel 1% Gel) 1 Application Topical 4 times a day as needed for pain. Refills: 0. escitalopram (escitalopram 10 mg Tab) 1 Tablets By Mouth every day. Refills: 3. ferrous sulfate (ferrous sulfate 325 mg Tab) 1 Tablets By Mouth every day. Refills: 3. ibuprofen (ibuprofen 600 mg Tab) 1 Tablets By Mouth every 8 hours as needed Pain/Fever. Refills: 0. lidocaine topical (lidocaine Top 5% film Patch) 1 Patches Topical every day. apply 12 hours on and 12 hours off daily. Refills: 0. multivitamin with minerals (One A Day Women's Complete oral tablet) 1 Tablets By Mouth every day. Refills: 0. naproxen (Naprosyn 500 mg Tab) 1 Tablets By Mouth 2 times a day. Refills: 0. ondansetron (Zofran ODT 4 mg Tab-Dis) 1 Tablets By Mouth every 6 hours. Refills: 0. pantoprazole (Pantoprazole [address] Tab) 1 Tablets By Mouth every day. Refills: 4. predniSONE (predniSONE 10 mg Tab) 1 Dose Separtor By Mouth As Directed. Take 3 tabs by mouth daily x5 days, then 2 tabs daily x5 days, then 1 tab daily x5 days.. Refills: 0. tamsulosin (Flomax 0.4 mg Cap) 1 Capsules By Mouth every day. Refills: 0. PATIENT EDUCATION INFORMATION: Instructions: Viral Illness, Adult Follow up: With: Address: When: Leon Haro [address] [place] [address] [place] [phone] Business (1) In 3 days 12/07/2024 DIAGNOSIS: Cough; Fever; Nausea Normal [facility] ED Patient Summaryon 025 ED Patient Summary ED Patient Summary [place] [id number] Patient Discharge Instructions Person Information Name: JANA CABALLERO Age: 54 Years Arrival Date: 12/04/2024 17:50:17 Discharge Diagnosis: Cough; Fever; Nausea Primary Care Physician: Leon Marti Provider Information Primary Provider: Todd Fleming DO Advanced Asset Management Analyst:Bhupendra Dale PA-C The exam and treatment you received in the Emergency Department were for an urgent problem and are not intended as complete care. It is important that you follow up with a doctor, nurse practitioner, or physician???s accounting administrative assistant for ongoing care. If your symptoms become worse or you do not improve as expected and you are unable to reach your usual health care provider, you should return to the Emergency Department. We are available 24 hours a day. JANA CABALLERO has been given the following list of patient education materials, prescriptions and follow-up instructions: Follow-up Instructions: With: Address: When: Leon Haro [address], [address], [address] [phone] Business (1) In 3 days 12/07/2024 In the event that this physician does not participate in your insurance network, please consult with your insurance company to find a nearby participating provider. Patient Education Materials: Viral Illness, Adult A MESSAGE TO ALL PATIENTS REGARDING OPIOIDS PRESCRIPTION OPIOIDS: WHAT YOU NEED TO KNOW Prescription opioids can be used to help relieve jnwclmvw-im-fsclnm pain and are often prescribed following a surgery or injury, or for certain health conditions. These medications can be an important part of the treatment but also come with serious risks. It is important to work with your healthcare provider to make sure you are getting the safest, most effective care. WHAT ARE THE RISKS AND SIDE EFFECTS OF OPIOID USE? Prescription opioids carry serious risks of addiction and overdose, especially with prolonged use. An opioid overdose, often marked by slowed breathing, can cause sudden . The use of prescription opioids can have a number of side effects as well, even when taken as directed: ??? Tolerance???meaning you might need to take more of the medication for the same pain relief ??? Physical dependence???meaning you have symptoms of withdrawal when a medication is stopped ??? Increased sensitivity to pain ??? Constipation ??? Nausea, vomiting, and dry mouth ??? Sleepiness and dizziness ??? Confusion ??? Depression ??? Low levels of testosterone that can result in lower sex drive, energy, and strength ??? Itching and sweating RISKS ARE GREATER WITH: ??? History of drug misuse, substance use disorder, or overdose ??? Mental health conditions (such as depression or anxiety) ??? Sleep apnea ??? Older age (65 years and older) ??? Avoid alcohol while taking prescription opioids. Also, unless specifically advised by your health care provider, medications to avoid include: ??? Benzodiazepines (such as Xanax or Valium) ??? Muscle relaxants (such as Soma or Flexeril) ??? Hypnotics (such as Ambien or Lunesta) ??? Other prescription opioids KNOW YOUR OPTIONS Talk to your health care provider about ways to manage your pain that don???t involve prescription opioids. Some of these options may actually work better and have fewer risks and side effects. Options may include: ??? Pain relievers such as acetaminophen, ibuprofen, and naproxen ??? Some medication that are also used for depression or seizures ??? Physical therapy and exercise ??? Cognitive behavioral therapy, a psychological, goal-directed approach, in which patients learn how to modify physical, behavioral, and emotional triggers of pain and stress. IF YOU ARE PRESCRIBED OPIOIDS FOR PAIN: ??? Never take opioids in greater amounts or more often than prescribed. ??? Follow up with your primary health care provider. o Work together to create a plan on how to manage your pain. o Talk about ways to help manage your pain that don???t involve prescription opioids. o Talk about any and all concerns and side effects. ??? Help prevent misuse and abuse o Never sell or share prescription opioids. o Never use another person???s prescription opioids. ??? Store prescription opioids in a secure place and out of reach of others (this may include visitors, children, friends, and family). ??? Safely dispose of unused prescription opioids: Find your community drug take-back program or your pharmacy mail-back program, or flush them down the toilet, following guidance from the Food and Drug Administration (www.fda.gov/Drugs/Resource sForYou). ??? Visit www.cdc.gov/drugoverdose to learn about the risks of opioids abuse and overdose. ??? If you believe you may be struggling with addiction, tell your health care p (more content not included)... Normal [facility] BMPon 11-01-2024 Anion gap [Moles/Vol] 13 mmol/L Normal 6-16 [facility] Comment on above: Performed By: #### 2 [id number] #### [facility] [address] [place] [address] Calcium [Mass/Vol] 9.3 mg/dL Normal 8.9-11.1 [facility] Comment on above: Performed By: #### 2 [id number] #### [facility] [address] [place] [address] Chloride [Moles/Vol] 107 mmol/L Normal 101-111 [facility] Comment on above: Performed By: #### 2 [id number] #### [facility] [address] [place] [address] CO2 [Moles/Vol] 25 mmol/L Normal 21-31 [facility] Comment on above: Performed By: #### 2 [id number] #### [facility] [address] [place] [address] Creatinine [Mass/Vol] 0.5 mg/dL Normal 0.5-1.3 [facility] Comment on above: Performed By: #### 2 [id number] #### [facility] [address] [place] [address] Glucose [Mass/Vol] 120 mg/dL Normal 55-199 [facility] Comment on above: Performed By: #### 2 [id number] #### [facility] [address] [place] [address] Potassium [Moles/Vol] 3.8 mmol/L Normal 3.5-5.3 [facility] Comment on above: Performed By: #### 2 [id number] #### [facility] [address] [place] [address] Sodium [Moles/Vol] 141 mmol/L Normal 135-145 [facility] Comment on above: Performed By: #### 2 [id number] #### [facility] [address] [place] [address] Urea nitrogen [Mass/Vol] 17 mg/dL Normal 5-21 [facility] Comment on above: Performed By: #### 2 [id number] #### [facility] [address] [place] [address] Urea nitrogen/Creatinine [Mass ratio] 34 No Units High 10-20 [facility] Comment on above: Performed By: #### 2 [id number] #### [facility] [address] [place] [address] BNPon 11-01-2024 Int Ctr BNP Pass Normal [facility] Comment on above: Performed By: #### 1 [id number] #### [facility] [address] [place] [address] Natriuretic peptide B (Bld) [Mass/Vol] 83 pg/mL High 5-80 [facility] Comment on above: Performed By: #### 1 [id number] #### [facility] [address] [place] [address] CBC w/ Auto Diffon 5 Basophils/100 WBC (Bld) 0.9 % Normal 0.0-2.0 [facility] Comment on above: Performed By: #### 2 [id number] #### [facility] [address] [place] [address] Basophils/Leukocytes Auto (Bld) [Pure # fraction] 0.0 E9/L Normal 0.0-0.2 [facility] Comment on above: Performed By: #### 2 [id number] #### [facility] [address] [place] [address] Eosinophils (Bld) [#/Vol] 0.1 E9/L Normal 0.0-0.5 [facility] Comment on above: Performed By: #### 2 [id number] #### [facility] [address] [place] [address] Eosinophils/100 WBC (Bld) 2.8 % Normal 0.0-8.0 [facility] Comment on above: Performed By: #### 2 [id number] #### [facility] [address] [place] [address] Erythrocyte distribution width (RBC) [Ratio] 15.7 % High 10.9-14.2 [facility] Comment on above: Performed By: #### 2 [id number] #### [facility] [address] [place] [address] Hematocrit (Bld) [Volume fraction] 33.3 % Low 34.0-46.0 [facility] Comment on above: Performed By: #### 2 [id number] #### [facility] [address] [place] [address] Hemoglobin (Bld) [Mass/Vol] 11.2 g/dL Low 12.0-16.0 [facility] Comment on above: Performed By: #### 2 [id number] #### [facility] [address] [place] [address] Lymphocytes (Bld) [#/Vol] 1.1 E9/L Normal 1.0-4.0 [facility] Comment on above: Performed By: #### 2 [id number] #### [facility] [address] [place] [address] Lymphocytes/100 WBC (Bld) 25.8 % Normal 14.0-50.0 [facility] Comment on above: Performed By: #### 2 [id number] #### [facility] [address] [place] [address] MCH (RBC) [Entitic mass] 28.3 pg Normal 27.0-34.0 [facility] Comment on above: Performed By: #### 2 [id number] #### [facility] [address] [place] [address] MCHC (RBC) [Mass/Vol] 33.6 g/dL Normal 31.4-36.0 [facility] Comment on above: Performed By: #### 2 [id number] #### [facility] [address] [place] [address] MCV (RBC) [Entitic vol] 84.2 fL Normal 80.0-100.0 [facility] Comment on above: Performed By: #### 2 [id number] #### [facility] [address] [place] [address] Monocytes (Bld) [#/Vol] 0.2 E9/L Normal 0.2-1.0 [facility] Comment on above: Performed By: #### 2 [id number] #### [facility] [address] [place] [address] Neutrophils (Bld) [#/Vol] 2.7 E9/L Normal 2.0-7.5 [facility] Comment on above: Performed By: #### 2 [id number] #### [facility] [address] [place] [address] Neutrophils/100 WBC (Bld) 64.8 % Normal 36.0-75.0 [facility] Comment on above: Performed By: #### 2 [id number] #### [facility] [address] [place] [address] Platelet mean volume (Bld) [Entitic vol] 8.5 fL Normal 6.4-10.8 [facility] Comment on above: Performed By: #### 2 [id number] #### [facility] [address] [place] [address] Platelets (Bld) [#/Vol] 218.0 E9/L Normal 150.0-500.0 [facility] Comment on above: Performed By: #### 2 [id number] #### [facility] [address] [place] [address] RBC (Bld) [#/Vol] 4.0 E12/L Low 4.3-5.9 [facility] Comment on above: Performed By: #### 2 [id number] #### [facility] [address] [place] [address] WBC corrected for nucl RBC Auto (Bld) [#/Vol] 4.1 E9/L Normal 4.0-11.0 [facility] Comment on above: Performed By: #### 2 [id number] #### [facility] [address] [place] [address] CHEMISTRYOrdered By: SYSTEM SYSTEM on 11-01-2024 Troponin HS 4.90 pg/mL Low 10.10 - 27.10 pg/mL [facility] Comment on above: Interpretive Data: T he 95% CI (Confidence Interval) PPV (Positive Predictive Value) for myocardial infarction in females is 38 pg/mL, in males 51 pg/mL. The results should be used in conjunction with clinical conditions of myocardial infarction. (Access High Sensitivity Troponin I Instructions For Use, Cely [place], April 2018) Anion gap [Moles/Vol] 13 mmol/L Normal 6 - 16 mEq/L [facility] Calcium [Mass/Vol] 9.3 mg/dL Normal 8.9 - 11. 1 mg/dL [facility] Chloride [Moles/Vol] 107 mmol/L Normal 101 - 1 11 mmol/L [facility] CO2 [Moles/Vol] 25 mmol/L Normal 21 - 31 mmol/L [facility] Creatinine [Mass/Vol] 0.5 mg/dL Normal 0.5 - 1.3 mg/dL [facility] eGFR 111 mL/min/1.73 m2 Normal >=59mL/mi n/ 1.73 m2 [facility] Glucose [Mass/Vol] 120 mg/dL Normal 55 - 199 mg/dL [facility] Potassium [Moles/Vol] 3.8 mmol/L Normal 3.5 - 5.3 mmol/L [facility] Sodium [Moles/Vol] 141 mmol/L Normal 135 - 145 mmol/L [facility] Troponin HS 4.60 pg/mL Low 10.10 - 27.10 pg/mL [facility] Comment on above: Interpretive Data: T he 95% CI (Confidence Interval) PPV (Positive Predictive Value) for myocardial infarction in females is 38 pg/mL, in males 51 pg/mL. The results should be used in conjunction with clinical conditions of myocardial infarction. (Access High Sensitivity Troponin I Instructions For Use, Cely [place], April 2018) Urea nitrogen [Mass/Vol] 17 mg/dL Normal 5 - 21 mg/dL [facility] Urea nitrogen/Creatinine [Mass ratio] 34 mg/mg High 10 - 20 [facility] CHEMISTRYOrdered By: Taya chadwick on 11-01-2024 Natriuretic peptide B (Bld) [Mass/Vol] 83 pg/mL High 5 - 80 pg/mL [facility] COAGULATIONOrdered By: Taya Crowell on 11-01-2024 aPTT Coag (PPP) [Time] 34.1 s Normal 25.1 - 36.5 second(s) [facility] Comment on above: Interpretive Data: Nakul win 15 days - 4 weeks 1 - 5 months 6 - 11 months 1 - 5 years 6 - 10 years 11 - 17 years PTT Mean: 35.4 (27.6-45.6) Mean: 33.5 (24.8-40.7) Mean: 32.4 (25.1-40.7) Mean: 31.6 (24.0-39.2) Mean: 31.6 (26.9-38.7) Mean: 31.0 (24.6-38.4) Pediatric Reference ranges were obtained from a study by rivas Rosas al. prepared from 1437 samples obtained at 7 different centers using the same coagulation reagent and instrumentation as [facility]. Currently there are no coagulation studies available worldwide for children to 14 days, and no normal ranges. Heparin therapeutic range (represented by Anti-Factor Xa activity of 0.2 - 0.4 U/mL) corresponds to PTT of 56.6 - 109.0 sec. INR Coag (PPP) [Relative time] 1.02 {INR} Invalid Interpretation Code [facility] Comment on above: Interpretive Data: I NR results are specifically intended to assess patients stabilized on long-term Anticoagulation therapy suggested INR s Less Intensive Anticoagulation 2.0 3.0 Conventional Range 3.0 4.5 PT Coag (PPP) [Time] 11.4 s Normal 9.4 - 1 2.5 second(s) [facility] Comment on above: Interpretive Data: 1 5 days - 4 weeks 1 - 5 months 6 -11 months 1-5 years 6-10 years 11 -17 years Mean: 11.2 (9.5-12.6) Mean: 11.0 (9.7-12.8) Mean: 11.0 (9.8-13.0) Mean: 11.3 (9.9-13.4) Mean: 11.7 (10.0-14.6) Mean: 11.8 (10.0 - 14.1) Pediatric Reference ranges were obtained from a study by rivas Rosas al. prepared from 1437 samples obtained at 7 different centers using the same coagulation reagent and instrumentation as [facility]. Currently there are no coagulation studies available worldwide for children to 14 days, and no normal ranges. ED Clinical Summaryon 2024 ED Clinical Summary ED Clinical Summary [place] [id number] ED Clinical Summary Person Information Name: JANA CABALLERO [facility] Age: 54 Years : 1970 Sex: Female Language: Syrian PCP: Brigitte Carpenter Marital Status: Phone: [phone] Visit Id: Visit Reason: Leg pain-swelling; Headache; HEADACHE Speciality: Acuity: 3 Enc Type: Emergency Med Service: Emergency Arrival: 11/01/2024 09:59:10 Discharge: 11/01/2024 15:30:56 LOS: 000 05:31 Checkin: 11/01/2024 09:59:10 Checkout: 11/01/2024 15:30:56 Dispo Type: Home (Routine DC) EVENTS: Event Name Event Status Request Date/Time Start Date/Time Complete Date/Time Arrive Complete 11/01/2024 09:59:10 11/01/2024 09:59:10 11/01/2024 09:59:10 Document Home Meds Request 11/01/2024 09:59:10 Triage Complete 11/01/2024 09:59:10 11/01/2024 10:08:08 11/01/2024 10:08:08 Pending Labs Complete 11/01/2024 10:09:24 11/01/2024 12:44:11 Lab Complete 11/01/2024 10:09:24 11/01/2024 11:35:08 Pending Labs Complete 11/01/2024 11:01:24 11/01/2024 11:01:24 11/01/2024 11:01:24 Pending Labs Complete 11/01/2024 11:01:44 11/01/2024 11:01:44 11/01/2024 11:35:08 Lab Complete 11/01/2024 11:01:44 11/01/2024 11:01:44 11/01/2024 11:35:08 Registration Complete 11/01/2024 11:33:06 11/01/2024 11:33:06 11/01/2024 11:33:06 Reg Complete Request 11/01/2024 11:33:06 Reg Bed Request Complete 11/01/2024 11:33:06 11/01/2024 11:33:06 11/01/2024 11:33:06 Bed Assign Complete 11/01/2024 13:13:29 11/01/2024 13:13:29 11/01/2024 13:13:29 Dr Exam Complete 11/01/2024 13:13:29 11/01/2024 13:14:23 11/01/2024 13:14:23 RN Exam Request 11/01/2024 13:13:29 Registration Request 11/01/2024 13:14:23 Dr Exam Complete 11/01/2024 13:15:56 11/01/2024 13:15:56 11/01/2024 13:15:56 X-Ray Complete 11/01/2024 13:28:48 11/01/2024 13:36:10 11/01/2024 13:51:58 Meds Admin Complete 11/01/2024 13:28:48 11/01/2024 13:34:56 Pending Labs Cancel 11/01/2024 13:29:27 11/01/2024 13:41:09 Lab Cancel 11/01/2024 13:29:27 11/01/2024 13:41:09 Pending Labs Complete 11/01/2024 13:41:56 11/01/2024 13:41:56 11/01/2024 14:40:52 Lab Complete 11/01/2024 13:41:56 11/01/2024 13:41:56 11/01/2024 14:40:52 Wet Read Request 11/01/2024 13:51:58 Discharge Complete 11/01/2024 15:25:15 11/01/2024 15:31:08 11/01/2024 15:31:08 Transfer Complete 11/01/2024 15:31:08 11/01/2024 15:31:08 11/01/2024 15:31:08 ADDRESS: [address] [place] [address] [facility] [phone] PHYS DOC NOTES: MEDICAL INFORMATION: Prescriptions Given: Medications to Continue with No Changes Other Medications acetaminophen-oxycodone (Percocet 5 mg-325 mg oral tablet) 1 Tablets By Mouth every 6 hours as needed as needed for pain. Refills: 0. albuterol (albuterol HFA 90 mcg/inh MDI) 2 Puffs Inhalation every 4 hours as needed for wheezing. Refills: 3. calcium carbonate (calcium 500 mg tablets) 2 Tablets By Mouth 2 times a day. Refills: 3. cholecalciferol (cholecalciferol 50,000 intl units oral capsule) 1 Capsules By Mouth every 7 days. Refills: 1. ciclopirox topical (Ciclodan 8% topical solution) 1 Application Topical every day. Apply to great toe after shower , file nail, daily to affected area. Refills: 3. cyanocobalamin (Vitamin B12 1000 mcg Tab) 1 Tablets By Mouth every day. Refills: 0. cyclobenzaprine (cyclobenzaprine 10 mg Tab) 1 Tablets By Mouth 3 times a day as needed for spasm. Refills: 0. diclofenac topical (Voltaren Gel 1% Gel) 1 Application Topical 4 times a day as needed for pain. Refills: 0. escitalopram (escitalopram 10 mg Tab) 1 Tablets By Mouth every day. Refills: 3. ferrous sulfate (ferrous sulfate 325 mg Tab) 1 Tablets By Mouth every day. Refills: 3. ibuprofen (ibuprofen 600 mg Tab) 1 Tablets By Mouth every 8 hours as needed Pain/Fever. Refills: 0. lidocaine topical (lidocaine Top 5% film Patch) 1 Patches Topical every day. apply 12 hours on and 12 hours off daily. Refills: 0. multivitamin with minerals (One A Day Women's Complete oral tablet) 1 Tablets By Mouth every day. Refills: 0. naproxen (Naprosyn 500 mg Tab) 1 Tablets By Mouth 2 times a day. Refills: 0. ondansetron (Zofran ODT 4 mg Tab-Dis) 1 Tablets By Mouth every 6 hours. Refills: 0. pantoprazole (Pantoprazole [address] Tab) 1 Tablets By Mouth every day. Refills: 4. predniSONE (predniSONE 10 mg Tab) 1 Dose Separtor By Mouth As Directed. Take 3 tabs by mouth daily x5 days, then 2 tabs daily x5 days, then 1 tab daily x5 days.. Refills: 0. tamsulosin (Flomax 0.4 mg Cap) 1 Capsules By Mouth every day. Refills: 0. PATIENT EDUCATION INFORMATION: Instructions: Acute Pain, Adult Follow up: With: Address: When: [place] [id number] [facility] ([employer] In 3 days 11/04/2024 Comments: Call to schedule a follow-up appointment with her primary care provider at [facility]. Elevate your feet and use decompressions as discussed. Continue to monitor your blood pressure. Return to the ED with any new or worsening symptoms. With: Addre (more content not included)... Normal [facility] ED Note-Physicianon 11-01-19 25 ED Note-Physician ED Note-Physician Basic Information Time Seen: Wendy BRIONES, Delia Baires 11/01/2024 13:14 Chief Complaint pt reports she has b/l leg pain/swelling and ANDUJAR. states started over the past few days. History of Present Illness Patient is a 54-year-old female with a history of generalized anxiety disorder, depression, kidney stones, hyperlipidemia, migraines, and smoking who presents to the ED with bilateral lower extremity pain/swelling that has been ongoing for the past 2 to 3 weeks. Patient states she had a mechanical fall approximately 3 to 4 weeks ago and has had imaging that was negative. Patient states the ED here has previously missed a hip fracture in the past that was caught by [facility], therefore patient wants repeat imaging today. She also notes she has had a generalized headache and nausea that is consistent with prior migraines. Denies a sudden onset and states she has used meloxicam and ibuprofen with no relief in symptoms. Patient denies any head trauma, changes in vision, confusion, changes in speech, chest pain, or shortness of breath. Patient denies a history of CHF. Review of Systems A 10 point review of systems is negative except as noted above. Medical and Surgical History: Reviewed and noted Social history: Lives at home Family History: Reviewed. Tobacco: Former Physical Exam Vitals & Measurements T: 36.7 ???C(Oral) HR: 70(Peripheral) RR: 18 BP: 157/91 SpO2: 98% HT: 170 cm WT: 100.6 kg BMI: 34.81 General: The patient appears well and in no apparent distress. Patient is resting comfortably on cart. Skin: Warm, dry, no pallor noted. Head: Normocephalic, atraumatic Neck: No JVD Eye: PERRLA, EOMI, visual tejada intact bilaterally ENT: Moist mucus membranes Cardiovascular: Regular rate normal peripheral perfusion Respiratory: No respiratory distress no accessory muscle use no obvious audible wheezing Musculoskeletal: normal ROM, no deformity, 1+ nonpitting lower extremity edema bilaterally, no erythema or increased warmth, plantarflexion and dorsiflexion of the ankles are intact bilaterally, flexion and extension of the knees are intact bilaterally, no focal bony tenderness to the lower extremities, neurovascularly intact GI: Soft no obvious distention. No rebound or rigidity. No guarding. No tenderness. Neurological: A&O moves all extremities equal strength and symmetry, no focal neurological deficits Psychiatric: Cooperative and appropriate Medical Decision Making Patient is a 54-year-old female with a history of generalized anxiety disorder, depression, kidney stones, hyperlipidemia, migraines, and smoking who presents to the ED with bilateral lower extremity pain/swelling that has been ongoing for the past 2 to 3 weeks. Patient is hemodynamically stable and afebrile. There are no focal neurological deficits. Patient complains of a headache consistent with prior migraines, therefore I do not feel imaging is warranted at this time. There is no focal bony tenderness to the lower extremities bilaterally, however patient is requesting imaging. She is given morphine and Zofran. Lab work is reviewed and baseline. 2 negative troponins. BNP is only 89. Tibia/fibula x-rays are negative for any acute osseous abnormalities bilaterally. Patient was updated on results. On reevaluation patient noted significant prominent symptoms. Blood pressure is slightly elevated today, likely secondary to pain. Patient was educated on continuing to monitor her blood pressure at home. She was also educated on elevation of her legs and compression stockings. Patient states she is unable to afford compression stockings at this time, therefore she is being discharged with Nate wraps. She will follow-up with primary care provider and her orthopedic provider. She was advised to return the ED the any new worsening symptoms. Patient is agreeable with the plans and all questions were answered. Assessment/Plan Bilateral lower extremity edema (R60.0: Localized edema) Bilateral lower extremity pain (M79.604: Pain in right leg) Generalized headache (R51.9: Headache, unspecified) Pain in left leg (M79.605: Pain in left leg) Orders: morphine, 4 mg = 1 mL, Injection, IntraMuscular, Once, Stop date 11/01/24 13:28:00 EST, STAT, Start date 11/01/24 13:28:00 EST, 11/01/24 13:28:00 EST ondansetron, 4 mg = 1 tab(s), Tab-Dis, Oral, Once, Stop date 11/01/24 13:28:00 EST, STAT, Start date 11/01/24 13:28:00 EST, 11/01/24 13:28:00 EST XR Tib/Fib Left 2 View XR Tib/Fib Right 2 View Medications Administered Given morphine 4 mg/mL Inj, 4 mg, IntraMuscular Zofran ODT 4 mg Tab-Dis, 4 mg, Oral Disposition Plan Patient Discharge Condition stable/improved Discharge Disposition home Discharge Prescription List Prescriptions No active prescription medications Follow-up With When Contact Information [employer] In 3 days 11/04/[address] [place] [address]- Business (1) Additional Instructions: Call t (more content not included)... Normal [facility] Comment on above: Result Comment: Elec tronically Signed By: Delia Nguyne PA-C\.br\Date and Time Signed: 11/01/24 15:30 EST\.br\Electronically Co-Signed By: Stefano Marino DO\.br\Date and Time Co-Signed: 11/01/24 15:54 EST ED Patient Summaryon 025 ED Patient Summary ED Patient Summary [address] [address] Patient Discharge Instructions Person Information Name: JANA CABALLERO Age: 54 Years Arrival Date: 11/01/2024 09:59:10 Discharge Diagnosis: Bilateral lower extremity pain; Bilateral lower extremity edema; Generalized headache; Pain in left leg Primary Care Physician: Brigitte Carpenter Provider Information Primary Provider: Stefano Marino DO [employer] Analyst:Delia Nguyen PA-C The exam and treatment you received in the Emergency Department were for an urgent problem and are not intended as complete care. It is important that you follow up with a doctor, nurse practitioner, or physician???s accounting administrative assistant for ongoing care. If your symptoms become worse or you do not improve as expected and you are unable to reach your usual health care provider, you should return to the Emergency Department. We are available 24 hours a day. JANA CABALLERO has been given the following list of patient education materials, prescriptions and follow-up instructions: Follow-up Instructions: With: Address: When: [employer] [address] [place] [address] Business (1) In 3 days 11/04/2024 Comments: Call to schedule a follow-up appointment with her primary care provider at [facility]. Elevate your feet and use decompressions as discussed. Continue to monitor your blood pressure. Return to the ED with any new or worsening symptoms. With: Address: When: Brigitte Garcia [address], [address], [employer] [address] [place] [address] Business (1) In 3 days In the event that this physician does not participate in your insurance network, please consult with your insurance company to find a nearby participating provider. Patient Education Materials: Acute Pain, Adult A MESSAGE TO ALL PATIENTS REGARDING OPIOIDS PRESCRIPTION OPIOIDS: WHAT YOU NEED TO KNOW Prescription opioids can be used to help relieve [id number] pain and are often prescribed following a surgery or injury, or for certain health conditions. These medications can be an important part of the treatment but also come with serious risks. It is important to work with your healthcare provider to make sure you are getting the safest, most effective care. WHAT ARE THE RISKS AND SIDE EFFECTS OF OPIOID USE? Prescription opioids carry serious risks of addiction and overdose, especially with prolonged use. An opioid overdose, often marked by slowed breathing, can cause sudden . The use of prescription opioids can have a number of side effects as well, even when taken as directed: ??? Tolerance???meaning you might need to take more of the medication for the same pain relief ??? Physical dependence???meaning you have symptoms of withdrawal when a medication is stopped ??? Increased sensitivity to pain ??? Constipation ??? Nausea, vomiting, and dry mouth ??? Sleepiness and dizziness ??? Confusion ??? Depression ??? Low levels of testosterone that can result in lower sex drive, energy, and strength ??? Itching and sweating RISKS ARE GREATER WITH: ??? History of drug misuse, substance use disorder, or overdose ??? Mental health conditions (such as depression or anxiety) ??? Sleep apnea ??? Older age (65 years and older) ??? Avoid alcohol while taking prescription opioids. Also, unless specifically advised by your health care provider, medications to avoid include: ??? Benzodiazepines (such as Xanax or Valium) ??? Muscle relaxants (such as Soma or Flexeril) ??? Hypnotics (such as Ambien or Lunesta) ??? Other prescription opioids KNOW YOUR OPTIONS Talk to your health care provider about ways to manage your pain that don???t involve prescription opioids. Some of these options may actually work better and have fewer risks and side effects. Options may include: ??? Pain relievers such as acetaminophen, ibuprofen, and naproxen ??? Some medication that are also used for depression or seizures ??? Physical therapy and exercise ??? Cognitive behavioral therapy, a psychological, goal-directed approach, in which patients learn how to modify physical, behavioral, and emotional triggers of pain and stress. IF YOU ARE PRESCRIBED OPIOIDS FOR PAIN: ??? Never take opioids in greater amounts or more often than prescribed. ??? Follow up with your primary health care provider. o Work together to create a plan on how to manage your pain. o Talk about ways to help manage your pain that don???t involve prescription opioids. o Talk about any and all concerns and side effects. ??? Help prevent misuse and abuse o Never sell or share prescription opioids. o Never use another person???s prescription opioids. ??? Store prescription opioids in a secure place and out of reach of others (this may include (more content not included)... Normal [facility] HEMATOLOGYOrdered By: SYSTEM SYSTEM on 11-01-2024 Basophils/100 WBC (Bld) 0.9 % Normal 0.0 - 2.0 % Remisol Heme Basophils/Leukocytes Auto (Bld) [Pure # fraction] 0.0 E9/L Normal 0.0 - 0.2 E9/L Remisol Heme Eosinophils (Bld) [#/Vol] 0.1 E9/L Normal 0.0 - 0.5 E9/L Remisol Heme Eosinophils/100 WBC (Bld) 2.8 % Normal 0.0 - 8.0 % Remisol Heme Erythrocyte distribution width (RBC) [Ratio] 15.7 % High 10.9 - 14.2 % Remisol Heme Hematocrit (Bld) [Volume fraction] 33.3 % Low 34.0 - 46.0 % Remisol Heme Hemoglobin (Bld) [Mass/Vol] 11.2 g/dL Low 12.0 - 16.0 gm/dL Remisol Heme Lymphocytes (Bld) [#/Vol] 1.1 E9/L Normal 1.0 - 4.0 E9/L Remisol Heme Lymphocytes/100 WBC (Bld) 25.8 % Normal 14.0 - 50.0 % Remisol Heme MCH (RBC) [Entitic mass] 28.3 pg Normal 27.0 - 34.0 pg Remisol Heme MCHC (RBC) [Mass/Vol] 33.6 g/dL Normal 31.4 - 36.0 gm/dL Remisol Heme MCV (RBC) [Entitic vol] 84.2 fL Normal 80.0 - 100.0 fL Remisol Heme Monocytes (Bld) [#/Vol] 0.2 E9/L Normal 0.2 - 1.0 E9/L Remisol Heme Monocytes/100 WBC (Bld) 5.7 % Normal 4.0 - 14.0 % Remisol Heme Neutrophils (Bld) [#/Vol] 2.7 E9/L Normal 2.0 - 7.5 E9/L Remisol Heme Neutrophils/100 WBC (Bld) 64.8 % Normal 36.0 - 75.0 % Remisol Heme Platelet mean volume (Bld) [Entitic vol] 8.5 fL Normal 6.4 - 10.8 fL Remisol Heme Platelets (Bld) [#/Vol] 218.0 E9/L Normal 150.0 - 500.0 E9/L Remisol Heme RBC (Bld) [#/Vol] 4.0 E12/L Low 4.3 - 5.9 E12/L Remisol Heme WBC corrected for nucl RBC Auto (Bld) [#/Vol] 4.1 E9/L Normal 4.0 - 11.0 E9/L Remisol Heme PT & PTTon 11-01-2024 aPTT Coag (PPP) [Time] 34.1 second(s) Normal 25.1-36.5 [facility] Comment on above: Order Comment: pt wa lked down to cafeteria will check back.[id number] 11/01/2024 10:14:44 EST Result Comment: Para meter 15 days - 4 weeks 1 - 5 months 6 - 11 months 1 - 5 years 6 - 10 years 11 - 17 years PTT Mean: 35.4 (27.6-45.6) Mean: 33.5 (24.8-40.7) Mean: 32.4 (25.1-40.7) Mean: 31.6 (24.0-39.2) Mean: 31.6 (26.9-38.7) Mean: 31.0 (24.6-38.4) Pediatric Reference ranges were obtained from a study by Antoni Smart et al. prepared from 1437 samples obtained at 7 different centers using the same coagulation reagent and instrumentation as [facility]. Currently there are no coagulation studies available worldwide for children to 14 days, and no normal ranges. Heparin therapeutic range (represented by Anti-Factor Xa activity of 0.2 - 0.4 U/mL) corresponds to PTT of 56.6 - 109.0 sec. Performed By: #### 1 [id number] #### [facility] [address] [place] [address] INR Coag (PPP) [Relative time] 1.02 {INR} Invalid Interpretation Code [facility] Comment on above: Order Comment: pt wa lked down to cafeteria will check back.[id number] 11/01/2024 10:14:44 EST Result Comment: INR results are specifically intended to assess patients stabilized on long-term Anticoagulation therapy suggested INR???s ???Less Intensive Anticoagulation??? 2.0 ??? 3.0 Conventional Range 3.0 ??? 4.5 Performed By: #### 1 [id number] #### [facility] [address] [place] [address] PT Coag (PPP) [Time] 11.4 second(s) Normal 9.4-12.5 [facility] Comment on above: Order Comment: pt wa lked down to cafeteria will check back.[id number] 11/01/2024 10:14:44 EST Result Comment: 15 d ays - 4 weeks 1 - 5 months 6 -11 months 1-5 years 6-10 years 11 -17 years Mean: 11.2 (9.5-12.6) Mean: 11.0 (9.7-12.8) Mean: 11.0 (9.8-13.0) Mean: 11.3 (9.9-13.4) Mean: 11.7 (10.0-14.6) Mean: 11.8 (10.0 - 14.1) Pediatric Reference ranges were obtained from a study by Antoni Smart et al. prepared from 1437 samples obtained at 7 different centers using the same coagulation reagent and instrumentation as [facility]. Currently there are no coagulation studies available worldwide for children to 14 days, and no normal ranges. Performed By: #### 1 [id number] #### [facility] [address] [place] [address] Pre-Arrival Noteon Pre-Arrival Note Pre-Arrival Note Pre-Arrival Summary Name: , kristianems Current Date: 11/01/2024 10:00:15 EST Gender: Female Date of : Age: 54 Pre-Arrival Type: EMS ETA: 11/01/2024 10:23:00 EST Primary Care Physician: Presenting Problem: headache Pre-Arrival User: Jeniffer Del Real RN Referring Source: Location: [place] Completion Date/Time: 11/01/2024 09:53:00 [facility] Emergency Department Pre-Hospital Report Form Vital Signs: Pre-Hospital Report: Treatment in Route: Response to Treatment: Misc. Issues: Normal [facility] Troponin 0 Hr.on 11-01-2024 Troponin HS 4.60 pg/mL Low 10.10-27.10 [facility] Comment on above: Result Comment: The 95% CI (Confidence Interval) PPV (Positive Predictive Value) for myocardial infarction in females is 38 pg/mL, in males 51 pg/mL. The results should be used in conjunction with clinical conditions of myocardial infarction. (Access High Sensitivity Troponin I Instructions For Use, Cely Parisa, April 2018) Performed By: #### 1 [id number] #### [facility] [address] [place] [address] Troponin 1 Hr.on 11-01-2024 Troponin HS 4.90 pg/mL Low 10.10-27.10 [facility] Comment on above: Order Comment: 1150 Result Comment: The 95% CI (Confidence Interval) PPV (Positive Predictive Value) for myocardial infarction in females is 38 pg/mL, in males 51 pg/mL. The results should be used in conjunction with clinical conditions of myocardial infarction. (Access High Sensitivity Troponin I Instructions For Use, [employer], April 2018) Performed By: #### 1 [id number] #### [facility] [address] [place] [address] XR Tib/Fib Left 2 Viewon XR Tib/Fib Left 2 View Exam Date/Time: 11/01/2024 13:51 EST Reason for Exam: Pain, Traumatic Report IMPRESSION: NEGATIVE LEFT TIBIA AND FIBULA. CLINICAL INFORMATION: Pain, Traumatic COMPARISON: None. FINDINGS: The left tibia and fibula appear normal without evidence of fracture or dislocation. Soft tissue edema noted. Ordering Provider: Delia Nguyen FINAL REPORT Dictated: 11/01/2024 2:14 pm Rangel Rico DO Signed (Electronic Signature): 11/01/2024 2:14 pm Signed by: Rangel Rico DO Transcribed by: JG Technologist: FE Bertrand [facility] XR Tib/Fib Right 2 Viewon XR Tib/Fib Right 2 View Exam Date/Time: 11/01/2024 13:51 EST Reason for Exam: Pain, Traumatic Report IMPRESSION: NEGATIVE RIGHT TIBIA AND FIBULA. CLINICAL INFORMATION: Pain, Traumatic COMPARISON: None. FINDINGS: The right tibia and fibula appear normal without evidence of fracture or dislocation. Soft tissue edema is identified. Ordering Provider: Delia Nguyen FINAL REPORT Dictated: 11/01/2024 2:20 pm Rangel Rico DO Signed (Electronic Signature): 11/01/2024 2:20 pm Signed by: Rangel Rico DO Transcribed by: DP Technologist: FE Normal [facility] eGFRon 11-01-2024 eGFR 111 mL/min/1.73 m2 Normal >=59 [facility] Comment on above: Performed By: #### 1 [id number] #### [facility] [address] [place] [address] ED Clinical Summaryon 2024 ED Clinical Summary ED Clinical Summary [address] [address] ED Clinical Summary Person Information Name: JANA CABALLERO [place] Age: 53 Years : 1970 Sex: Female Language: Syrian PCP: Brigitte Carpenter Marital Status: Phone: [phone] Visit Id: Visit Reason: Leg pain-swelling; LEFT LEG PAIN Speciality: Acuity: 3 Enc Type: Emergency Med Service: Emergency Arrival: 10/24/2024 13:19:33 Discharge: 10/24/2024 16:23:16 LOS: 000 03:04 Checkin: 10/24/2024 13:19:33 Checkout: 10/24/2024 16:23:16 Dispo Type: Home (Routine DC) EVENTS: Event Name Event Status Request Date/Time Start Date/Time Complete Date/Time Arrive Complete 10/24/2024 13:19:33 10/24/2024 13:19:33 10/24/2024 13:19:33 Document Home Meds Request 10/24/2024 13:19:33 Triage Complete 10/24/2024 13:19:33 10/24/2024 13:29:24 10/24/2024 13:29:24 Registration Complete 10/24/2024 13:29:29 10/24/2024 13:29:29 10/24/2024 13:29:29 Reg Complete Request 10/24/2024 13:29:29 Reg Bed Request Complete 10/24/2024 13:29:29 10/24/2024 13:29:29 10/24/2024 13:29:29 Bed Assign Complete 10/24/2024 15:09:01 10/24/2024 15:09:01 10/24/2024 15:09:01 Dr Exam Complete 10/24/2024 15:09:01 10/24/2024 15:15:29 10/24/2024 15:15:29 RN Exam Complete 10/24/2024 15:09:01 10/24/2024 15:36:17 10/24/2024 15:36:17 Registration Request 10/24/2024 15:15:29 Dr Exam Complete 10/24/2024 15:28:56 10/24/2024 15:28:56 10/24/2024 15:28:56 Discharge Complete 10/24/2024 16:13:22 10/24/2024 16:23:27 10/24/2024 16:23:27 Transfer Complete 10/24/2024 16:23:27 10/24/2024 16:23:27 10/24/2024 16:23:27 ADDR[address]: [address] [facility] [phone] PHYS DOC NOTES: MEDICAL INFORMATION: Prescriptions Given: New Medications [facility] #[id number] [phone], [phone] diclofenac topical (Voltaren Gel 1% Gel) 1 Application Topical 4 times a day as needed for pain. Refills: 0. Medications to Continue Taking That Have Changed [facility] [employer] [facility] #[id number] [id number], [phone] START: ibuprofen (ibuprofen 600 mg Tab) 1 Tablets By Mouth every 8 hours for 7 Days. Refills: 0. Other Medications START: ibuprofen (ibuprofen 600 mg Tab) 1 Tablets By Mouth every 8 hours as needed Pain/Fever. Refills: 0. Medications to Continue with No Changes Other Medications acetaminophen-oxycodone (Percocet 5 mg-325 mg oral tablet) 1 Tablets By Mouth every 6 hours as needed as needed for pain. Refills: 0. albuterol (albuterol HFA 90 mcg/inh MDI) 2 Puffs Inhalation every 4 hours as needed for wheezing. Refills: 3. calcium carbonate (calcium 500 mg tablets) 2 Tablets By Mouth 2 times a day. Refills: 3. cholecalciferol (cholecalciferol 50,000 intl units oral capsule) 1 Capsules By Mouth every 7 days. Refills: 1. ciclopirox topical (Ciclodan 8% topical solution) 1 Application Topical every day. Apply to great toe after shower , file nail, daily to affected area. Refills: 3. cyanocobalamin (Vitamin B12 1000 mcg Tab) 1 Tablets By Mouth every day. Refills: 0. cyclobenzaprine (cyclobenzaprine 10 mg Tab) 1 Tablets By Mouth 3 times a day as needed for spasm. Refills: 0. escitalopram (escitalopram 10 mg Tab) 1 Tablets By Mouth every day. Refills: 3. ferrous sulfate (ferrous sulfate 325 mg Tab) 1 Tablets By Mouth every day. Refills: 3. lidocaine topical (lidocaine Top 5% film Patch) 1 Patches Topical every day. apply 12 hours on and 12 hours off daily. Refills: 0. multivitamin with minerals (One A Day Women's Complete oral tablet) 1 Tablets By Mouth every day. Refills: 0. naproxen (Naprosyn 500 mg Tab) 1 Tablets By Mouth 2 times a day. Refills: 0. ondansetron (Zofran ODT 4 mg Tab-Dis) 1 Tablets By Mouth every 6 hours. Refills: 0. pantoprazole (Pantoprazole [address] Tab) 1 Tablets By Mouth every day. Refills: 4. predniSONE (predniSONE 10 mg Tab) 1 Dose Separtor By Mouth As Directed. Take 3 tabs by mouth daily x5 days, then 2 tabs daily x5 days, then 1 tab daily x5 days.. Refills: 0. tamsulosin (Flomax 0.4 mg Cap) 1 Capsules By Mouth every day. Refills: 0. PATIENT EDUCATION INFORMATION: Instructions: Muscle Strain Follow up: With: Address: When: Kizzy Herrera [address], [facility] [employer] [address], [place] [phone] Business (1) In 3 days 10/27/2024 Comments: Call Dr for diagnosis based follow up With: Address: When: Brigitte Garcia [address], [address], [facility] [employer] [address] [place] [address] Business (1) In 3 days DIAGNOSIS: Strain of left groin Normal [facility] ED Note-Physicianon 10-24-19 25 ED Note-Physician ED Note-Physician Basic Information Time Seen: Gustavo BRIONES, Wes James 10/24/2024 15:15 Chief Complaint pt presents to he ER d/t L leg pain. pt concerned for something being torn. pt in therapy for back and hip. per pt she has been taking medications and leg is not better History of Present Illness 53-year-old female reports Emergency Department with complaints of left upper leg pain. Reports that something that she thinks that she tore in her groin/thigh region. Reports that she does see physical therapy but is not helping. Has been taking medications not getting any better. She reports has had multiple images on this previously. Denies any new injury. Reports worse with walking. Review of Systems no other aggravating or relieving factors no other associated symptoms no other prior treatments or complaints. Family: Reviewed and noncontributory Social: lives at home Review of systems negative unless otherwise specified in the HPI. Physical Exam Vitals & Measurements T: 36.7 ???C(Oral) HR: 75(Peripheral) RR: 20 BP: 125/72 SpO2: 97% HT: 170 cm WT: 100.6 kg BMI: 34.81 General: The patient appears well and in no apparent distress. Patient is resting in chair.. Skin: Warm, dry, no pallor noted. Head: Normocephalic, atraumatic Neck: No JVD Eye: PERRLA, EOMI ENT: Moist mucus membranes Cardiovascular: Regular rate. normal peripheral perfusion. Pedal pulses +2 bilaterally Respiratory: No respiratory distress. no accessory muscle use. no obvious audible wheezing Chest Wall: no deformity Musculoskeletal: normal ROM, no deformity, no swelling. Patient does have mild tenderness on palpation of the medial left anterior groin region, and extends into the thigh. No obvious swelling seen. No ecchymosis. GI: No obvious distention Neurological: A&O. moves all extremities equal strength and symmetry Psychiatric: Cooperative and appropriate Medical Decision Making MEDICAL DECISION MAKING Number and Complexity of Problems Differential Diagnosis: [] [facility] Data External documents reviewed: [] My EKG interpretation: [] My CT interpretation: [] My X-ray interpretation: [] My Ultrasound interpretation: [] Decision rules/scores evaluated: [] Discussed with: [] Treatment and Disposition ED Course: A 53-year-old female reports for recurrent left upper groin pain. She states that she has been seen multiple times for this before. I was able to review and did have a CT previously, that showed no acute fracture. She is concerned that she may have torn or pulled something. I discussed that if this is the case, she will need to follow-up with orthopedics. She was understanding of this. I did write a prescription for ibuprofen to use, as well as Voltaren gel. Discussed not use at the same time. She was understanding. She discussed that she will follow-up with orthopedics with Kizzy Herrera. Discussed return precautions. Follow-up with your primary care provider in 3 to 5 days. If symptoms worsen, do not improve, or new symptoms arise please report back to emergency department for further evaluation. The patient was understanding and agreeable to plan moving forward. Shared decision making: [] Code status: [] Assessment/Plan Strain of left groin (S76.212A: Strain of adductor muscle, fascia and tendon of left thigh, initial encounter) Orders: diclofenac topical, 1 anand, Topical, QID for pain, 100 gram, Refill(s) 0, [email or web address] #[id number], 170, cm, 10/24/24 13:29:00 EST, Height/Length Dosing, 100.6, kg, 10/24/24 13:29:00 EST, Weight Dosing ibuprofen, 600 mg = 1 tab(s), Oral, q8hr, X 7 day(s), # 30 tab(s), Refills(s) 0, Pharmacy: [email or web address] #[id number], 170, cm, 10/24/24 13:29:00 EST, Height/Length Dosing, 100.6, kg, 10/24/24 13:29:00 EST, Weight Dosing Disposition Plan Patient Discharge Condition stable Discharge Disposition to home Discharge Prescription List Prescriptions ibuprofen 600 mg Tab, 600 mg= 1 tab(s), Oral, q8hr Voltaren Gel 1% Gel, 1 anand, Topical, QID, PRN Follow-up With When Contact Information Kizzy Herrera In 3 days 10/27/2024 EST [address] [place] [address]- [phone] Business (1) Additional Instructions: Call Dr for diagnosis based follow up Brigitte Garcia In [address] [facility] [address] [place] [address]- Business (1) Additional Instructions: Patient Education Muscle Strain Attestation Patient seen and evaluated by the physician accounting administrative assistant. Attending physician was present in the emergency department and supervised care. This visit was performed by both the physician and an APC. I performed all aspects of the MDM as documented. This report was transcribed using voice recognition software. Every effort was made to ensure accuracy, however, inadvertently computerized director of retail analytics mistakes may be present. Appropriate healthcare PPE was used in evaluating this patient. The patient was (more content not included)... Normal [facility] Comment on above: Result Comment: Elec tronically Signed By: Wes Chen PA-C\.br\Date and Time Signed: 10/24/24 19:12 EST\.br\Electronically Co-Signed By: Dann Whitmore M.D.\.br\Date and Time Co-Signed: 10/24/24 19:29 EST ED Patient Summaryon 025 ED Patient Summary ED Patient Summary [address] [address] Patient Discharge Instructions Person Information Name: JANA CABALLERO Age: 53 Years Arrival Date: 10/24/2024 13:19:33 Discharge Diagnosis: Strain of left groin Primary Care Physician: Brigitte Carpenter Provider Information Primary Provider: Dann Whitmore M.D. [employer] Analyst:Wes Chen PA-C The exam and treatment you received in the Emergency Department were for an urgent problem and are not intended as complete care. It is important that you follow up with a doctor, nurse practitioner, or physician???s accounting administrative assistant for ongoing care. If your symptoms become worse or you do not improve as expected and you are unable to reach your usual health care provider, you should return to the Emergency Department. We are available 24 hours a day. JANA CABALLERO has been given the following list of patient education materials, prescriptions and follow-up instructions: Follow-up Instructions: With: Address: When: Kizzy Herrera [address], [facility] [employer] [address], [place] [phone] Business (1) In 3 days 10/27/2024 Comments: Call Dr for diagnosis based follow up With: Address: When: Brigitte Garcia [address], [facility] [address] [place] [address] Business (1) In 3 days In the event that this physician does not participate in your insurance network, please consult with your insurance company to find a nearby participating provider. Patient Education Materials: Muscle Strain A MESSAGE TO ALL PATIENTS REGARDING OPIOIDS PRESCRIPTION OPIOIDS: WHAT YOU NEED TO KNOW Prescription opioids can be used to help relieve nrsepbit-qf-wbfcal pain and are often prescribed following a surgery or injury, or for certain health conditions. These medications can be an important part of the treatment but also come with serious risks. It is important to work with your healthcare provider to make sure you are getting the safest, most effective care. WHAT ARE THE RISKS AND SIDE EFFECTS OF OPIOID USE? Prescription opioids carry serious risks of addiction and overdose, especially with prolonged use. An opioid overdose, often marked by slowed breathing, can cause sudden . The use of prescription opioids can have a number of side effects as well, even when taken as directed: ??? Tolerance???meaning you might need to take more of the medication for the same pain relief ??? Physical dependence???meaning you have symptoms of withdrawal when a medication is stopped ??? Increased sensitivity to pain ??? Constipation ??? Nausea, vomiting, and dry mouth ??? Sleepiness and dizziness ??? Confusion ??? Depression ??? Low levels of testosterone that can result in lower sex drive, energy, and strength ??? Itching and sweating RISKS ARE GREATER WITH: ??? History of drug misuse, substance use disorder, or overdose ??? Mental health conditions (such as depression or anxiety) ??? Sleep apnea ??? Older age (65 years and older) ??? Avoid alcohol while taking prescription opioids. Also, unless specifically advised by your health care provider, medications to avoid include: ??? Benzodiazepines (such as Xanax or Valium) ??? Muscle relaxants (such as Soma or Flexeril) ??? Hypnotics (such as Ambien or Lunesta) ??? Other prescription opioids KNOW YOUR OPTIONS Talk to your health care provider about ways to manage your pain that don???t involve prescription opioids. Some of these options may actually work better and have fewer risks and side effects. Options may include: ??? Pain relievers such as acetaminophen, ibuprofen, and naproxen ??? Some medication that are also used for depression or seizures ??? Physical therapy and exercise ??? Cognitive behavioral therapy, a psychological, goal-directed approach, in which patients learn how to modify physical, behavioral, and emotional triggers of pain and stress. IF YOU ARE PRESCRIBED OPIOIDS FOR PAIN: ??? Never take opioids in greater amounts or more often than prescribed. ??? Follow up with your primary health care provider. o Work together to create a plan on how to manage your pain. o Talk about ways to help manage your pain that don???t involve prescription opioids. o Talk about any and all concerns and side effects. ??? Help prevent misuse and abuse o Never sell or share prescription opioids. o Never use another person???s prescription opioids. ??? Store prescription opioids in a secure place and out of reach of others (this may include visitors, children, friends, and family). ??? Safely dispose of unused prescription opioids: Find your community drug take-back program or your pharmacy mail-back program, or flush them down the toilet, following guidance from the Food and Drug Administration (www.fda.gov/Drugs (more content not included)... [facility] Jony 10-23-2024 DEBBIE Telephone (GYNML) JANA CABALLERO ([id number]) 1970 F Date Time Provider Department 10/23/24 RUBIA DRIVER GYNML During your visit today, we recorded the following information about you: Ruiba Driver, CARLO 10/23/2024 2:08 PM Signed Patient left vm that she needed to talk to Dr. Viera or a nurse and that it was very important. Called patient back but only received vm but vm box was not set up so unable to leave message Will try calling again Allergies As of Date: 10/23/2024 (No Known Allergies) Date Reviewed: 12/02/2022 Reviewed by: Mellissa Allison MA - Fully Assessed Reason for Visit: Patient Question [1477] Prescriptions as of 10/23/2024 - meclizine (ANTIVERT) 25 mg tab take 1 tablet by mouth three times a day if needed for dizziness - escitalopram oxalate (LEXAPRO) 10 mg tablet Take 1 tablet by mouth once daily. - prochlorperazine (COMPAZINE) 10 mg tablet TAKE 1 TABLET BY MOUTH EVERY 6 HOURS NEEDED - amitriptyline (ELAVIL) 50 mg tablet Take 50 mg by mouth daily at bedtime. - oxyCODONE-acetaminophen (PERCOCET) 5-325 mg tablet Take 1 tablet by mouth every 6 hours as needed for Pain. - phenazopyridine (PYRIDIUM, GERIDIUM) 100 mg tablet Take 1 tablet by mouth three times daily as needed. - Loperamide HCl (ANTI-DIARRHEA) 2 mg tab Take 1 tablet by mouth as needed. - potassium chloride (K-TAB) 10 mEq tablet Take 1 tablet by mouth once daily. - pantoprazole DR (PROTONIX) 40 mg tablet Take 1 tablet by mouth once daily. - ferrous sulfate 325 mg (65 mg iron) EC tablet Take 1 tablet by mouth once daily. - diphenoxylate-atropine (LOMOTIL) 2.5-0.025 mg per tablet Take 2 tablets by mouth every 6 hours as needed for Diarrhea. - loperamide (IMODIUM) 2 mg cap(s) Take 1 capsule by mouth four times daily as needed. - ondansetron (ZOFRAN, HYDROCHLORIDE,) 8 mg tablet Take 1 tablet by mouth every 8 hours as needed for Nausea/Vomiting. - multivitamin tablet Take 1 tablet by mouth once daily. - oxybutynin ER (DITROPAN XL) 10 mg 24 hr tablet Take 10 mg by mouth once daily. - ranitidine (ZANTAC) 150 mg tablet Take 150 mg by mouth twice daily. Problem List As Of Date 10/23/2024 Noted Resolved Gastroesophageal reflux disease without esophag*11/02/2016 Acute posthemorrhagic anemia [D62] 11/02/2016 Cancer of overlapping sites of cervix uteri (HC*11/16/2016 Diarrhea [R19.7] 01/10/2017 Asthma with chronic obstructive pulmonary disea*01/10/2017 Encounter Status:Closed by RUBIA DRIVER on 10/23/[address] [facility] [address] Abdomen/Pelvis w/o Contra storachel 10-14-2024 CT Abdomen/Pelvis w/o Contrast Exam Date/Time: 10/14/2024 12:48 EST Reason for Exam: Trauma Report IMPRESSION: NO ACUTE FRACTURE IDENTIFIED. HEPATOMEGALY, UNCHANGED. RIGHT RENAL SUBCAPSULAR FLUID COLLECTION, WITH PARTIALLY CALCIFIED WALL, UNCHANGED. MULTIPLE NONOBSTRUCTING RIGHT RENAL CALCULI. SIGMOID DIVERTICULOSIS. UTERINE LEIOMYOMA. OTHER FINDINGS DISCUSSED. CT ABDOMEN PELVIS WITHOUT INTRAVENOUS CONTRAST MEDIUM. HISTORY: TRAUMA. . FELL WEEKS AGO. LEFT GROIN AND THIGH PAIN. HISTORY CERVICAL CARCINOMA. TECHNICAL FACTORS: CT imaging of the abdomen and pelvis were obtained and formatted as 5 mm contiguous axial images from the domes of the diaphragm to the symphysis pubis. Sagittal and coronal reconstructions were also obtained. Oral contrast medium: None. Intravenous contrast medium: None. Comparison: CT abdomen pelvis, 2023. Findings: Lower chest: Cardiac size normal. No pericardial effusion. No coronary artery calcification. Lung bases clear. Liver: Enlarged and unchanged with craniocaudal dimension 22.5 cm. Normal in, shape, and attenuation. Bile Ducts: Normal in caliber. Gallbladder: No stones or wall thickening. Pancreas: Normal without masses, cysts, ductal dilatation or calcification. Spleen: Normal in size without masses or calcifications. No splenules. Kidneys: Normal in size. Right kidney again shows partially calcified, subcapsular fluid collection lateral mid to lower pole, unchanged in size. Multiple punctate calcifications upper pole right kidney again identified, largest measuring approximately 6 mm. No left pelvocaliectasis. Left kidney shows no calculi, Report pelvocaliectasis, cystic/solid lesions. Adrenals: Normal. Small bowel: Normal in caliber. Appendix: Normal. Colon: Normal in caliber. Diverticular change, sigmoid colon. Peritoneum: No ascites, free air, or fluid collections. Vessels: Aorta normal in course and caliber. Lymph nodes: Retroperitoneal: No enlarged retroperitoneal lymph nodes. Mesenteric: No enlarged mesenteric lymph nodes. Pelvic: No enlarged pelvic lymph nodes. Ureters: Normal in course and caliber. No calcifications. Bladder: No wall thickening. Reproductive organs: 8 x 2 mm calcification uterine fundus. Abdominal Wall: 9 mm fat-containing periumbilical anterior abdominal wall defect. 2.9 cm fat-containing supraumbilical midline anterior abdominal wall defect. Both findings unchanged. Mild postsurgical versus inflammatory change, left paramedian anterior pelvic wall, stable. No diastasis of rectus musculature. No edema or masses. Bones: No bone lesions. Axial dose, L4-L5 and L5-S1. Disc space narrowing L4-L5. Remote mild anterior compression, L3, stable. No post operative changes. All CT scans at this facility use dose modulation, iterative reconstruction, and/or weight based dosing when appropriate to reduce radiation dose to as low as reasonably achievable. Ordering Provider: Dann Whitmore FINAL REPORT Dictated: 10/14/2024 1:13 pm Nahum Monson MD Signed (Electronic Signature): 10/14/2024 1:13 pm Signed by: Nahum Monson MD Transcribed by: JG Technologist: PAM Technical Comments Rectal Contrast Given? No Oral contrast amount in ml's: 0 Normal [facility] ED Clinical Summaryon 2024 ED Clinical Summary ED Clinical Summary [place] [id number] ED Clinical Summary Person Information Name: JANA CABALLERO [facility] Age: 53 Years : 1970 Sex: Female Language: Syrian PCP: Brigitte Carpenter Marital Status: Phone: [phone] Visit Id: Visit Reason: Fall; Leg injury - Minor; PAIN IN INNER THIGH Speciality: Acuity: 4 Enc Type: Emergency Med Service: Emergency Arrival: 10/14/2024 12:01:35 Discharge: 10/14/2024 14:06:38 LOS: 000 02:05 Checkin: 10/14/2024 12:01:35 Checkout: 10/14/2024 14:06:38 Dispo Type: Home (Routine DC) EVENTS: Event Name Event Status Request Date/Time Start Date/Time Complete Date/Time Arrive Complete 10/14/2024 12:01:35 10/14/2024 12:01:35 10/14/2024 12:01:35 Document Home Meds Request 10/14/2024 12:01:35 Triage Complete 10/14/2024 12:01:35 10/14/2024 12:06:12 10/14/2024 12:06:12 Bed Assign Complete 10/14/2024 12:03:38 10/14/2024 12:03:38 10/14/2024 12:03:38 Dr Exam Complete 10/14/2024 12:03:38 10/14/2024 12:13:39 10/14/2024 12:13:39 RN Exam Complete 10/14/2024 12:03:38 10/14/2024 12:07:00 10/14/2024 12:07:00 Registration Complete 10/14/2024 12:13:39 10/14/2024 12:24:38 10/14/2024 12:24:38 CT Complete 10/14/2024 12:22:13 10/14/2024 12:34:56 10/14/2024 12:48:03 Reg Complete Request 10/14/2024 12:24:38 Reg Bed Request Complete 10/14/2024 12:24:38 10/14/2024 12:24:38 10/14/2024 12:24:38 Meds Admin Complete 10/14/2024 13:56:04 10/14/2024 14:04:07 Discharge Complete 10/14/2024 13:59:03 10/14/2024 14:06:54 10/14/2024 14:06:54 Transfer Complete 10/14/2024 14:06:54 10/14/2024 14:06:54 10/14/2024 14:06:54 ADDRESS: [address] [facility] [id number] [facility] DOC NOTES: MEDICAL INFORMATION: Prescriptions Given: New Medications [facility] #[id number], [address] [place], [place] [id number], [phone] acetaminophen-oxycodone (Percocet 5 mg-325 mg oral tablet) 1 Tablets By Mouth every 6 hours as needed as needed for pain. Refills: 0. cyclobenzaprine (cyclobenzaprine 10 mg Tab) 1 Tablets By Mouth 3 times a day as needed for spasm. Refills: 0. naproxen (Naprosyn 500 mg Tab) 1 Tablets By Mouth 2 times a day. Refills: 0. Medications to Continue with No Changes Other Medications albuterol (albuterol HFA 90 mcg/inh MDI) 2 Puffs Inhalation every 4 hours as needed for wheezing. Refills: 3. calcium carbonate (calcium 500 mg tablets) 2 Tablets By Mouth 2 times a day. Refills: 3. cholecalciferol (cholecalciferol 50,000 intl units oral capsule) 1 Capsules By Mouth every 7 days. Refills: 1. ciclopirox topical (Ciclodan 8% topical solution) 1 Application Topical every day. Apply to great toe after shower , file nail, daily to affected area. Refills: 3. cyanocobalamin (Vitamin B12 1000 mcg Tab) 1 Tablets By Mouth every day. Refills: 0. escitalopram (escitalopram 10 mg Tab) 1 Tablets By Mouth every day. Refills: 3. ferrous sulfate (ferrous sulfate 325 mg Tab) 1 Tablets By Mouth every day. Refills: 3. ibuprofen (ibuprofen 600 mg Tab) 1 Tablets By Mouth every 8 hours as needed Pain/Fever. Refills: 0. lidocaine topical (lidocaine Top 5% film Patch) 1 Patches Topical every day. apply 12 hours on and 12 hours off daily. Refills: 0. multivitamin with minerals (One A Day Women's Complete oral tablet) 1 Tablets By Mouth every day. Refills: 0. ondansetron (Zofran ODT 4 mg Tab-Dis) 1 Tablets By Mouth every 6 hours. Refills: 0. pantoprazole (Pantoprazole [address] Tab) 1 Tablets By Mouth every day. Refills: 4. predniSONE (predniSONE 10 mg Tab) 1 Dose Separtor By Mouth As Directed. Take 3 tabs by mouth daily x5 days, then 2 tabs daily x5 days, then 1 tab daily x5 days.. Refills: 0. tamsulosin (Flomax 0.4 mg Cap) 1 Capsules By Mouth every day. Refills: 0. PATIENT EDUCATION INFORMATION: Instructions: Muscle Strain Follow up: With: Address: When: Brigitte Garcia [address], [address], [address] [address] Business (1) In 3 days 10/17/2024 Comments: Return to the emergency room if your pain gets worse or any new symptoms. DIAGNOSIS: 1:Strain of left groin Normal [facility] ED Note-Physicianon 10-14-19 ED Note-Physician ED Note-Physician Basic Information Time Seen: Dann Whitmore M.D. 10/14/2024 12:13 Chief Complaint pt reports she fell a weeks ago, states L thinner thigh pain. thinks she injured her pelvis. pt using walker. History of Present Illness The patient is a 53-year-old female who presented to the emergency room with left groin pain. The patient stated the pain has been present for past 2 weeks. The patient states 2 weeks ago she slipped on ice and she fell landed on her butt. The patient states if she rests the pain is more comfortable. The patient states the pain is worse when she is trying to ambulate or get up from a sitting position. The patient denies any abdominal pain. She denies any bowel or bladder incontinence. Denies any saddle paresthesia. The patient denies any other associated symptoms or any other injuries. Review of Systems Additional ROS info: Except as noted in the above Review of Systems and in the History of Present Illness all other systems have been reviewed and are negative or noncontributory. Physical Exam Vitals & Measurements T: 36.5 ???C(Oral) HR: 80(Peripheral) RR: 17 BP: 173/77 SpO2: 98% HT: 170 cm WT: 99.2 kg BMI: 34.33 General: alert, no acute distress Skin: warm, dry Head: no trauma, normocephalic Neck: Trachea midline Eye: normal conjunctiva, sclera clear Cardiovascular: regular rate and rhythm Respiratory: Lungs CTA, respirations non labored, breath sounds equal Gastrointestinal: soft, non distended, mild tenderness over the suprapubic bone, no guarding Back: No tenderness, Normal ROM Extremities: no deformity, no trauma Neurological: Alert and oriented, motor strength equal & normal bilaterally, sensation equal & normal bilaterally, speech normal, no focal neuro deficits Psychiatric: cooperative, affect appropriate for age Medical Decision Making MEDICAL DECISION MAKING Number and Complexity of Problems Differential Diagnosis: [] [facility] Data External documents reviewed: [] My EKG interpretation: [] My CT interpretation: [] My X-ray interpretation: [] My Ultrasound interpretation: [] Decision rules/scores evaluated: [] Discussed with: [] Treatment and Disposition ED Course: The patient presented with left groin pain after fall [address] of the pelvis without contrast shows no fracture no dislocation. More likely she strained the muscles in the groin. The patient was given Percocet. Will discharge patient home with prescription for Percocet, Naprosyn and Flexeril. She will follow-up with primary care. She is instructed to return to the emergency room if her pain gets worse or any new symptoms. Shared decision making: [] Code status: [] Assessment/Plan 1. Strain of left groin (S76.212A: Strain of adductor muscle, fascia and tendon of left thigh, initial encounter) Ordered: acetaminophen-oxycodone, 1 tab(s), Oral, q6hr as needed for pain, 12 tab(s), Refill(s) 0, [email or web address] #[id number], 170, cm, 10/14/24 12:06:00 EST, Height/Length Dosing, 99.2, kg, 10/14/24 12:06:00 EST, Weight Dosing Orders: acetaminophen-oxycodone, 1 tab(s), Tab, Oral, Once, Stop date 10/14/24 13:55:00 EST, STAT, Start date 10/14/24 13:55:00 EST cyclobenzaprine, 10 mg = 1 tab(s), Oral, TID, PRN for spasm, # 20 tab(s), Refills(s) 0, Pharmacy: [email or web address] #[id number], 170, cm, 10/14/24 12:06:00 EST, Height/Length Dosing, 99.2, kg, 10/14/24 12:06:00 EST, Weight Dosing naproxen, 500 mg = 1 tab(s), Oral, BID, # 20 tab(s), Refills(s) 0, Pharmacy: [facility] #[id number], 170, cm, 10/14/24 12:06:00 EST, Height/Length Dosing, 99.2, kg, 10/14/24 12:06:00 EST, Weight Dosing CT Abdomen/Pelvis w/o Contrast Disposition Plan Patient Discharge Condition Stable Discharge Disposition Discharge home Discharge Prescription List Prescriptions cyclobenzaprine 10 mg Tab, 10 mg= 1 tab(s), Oral, TID, PRN Naprosyn 500 mg Tab, 500 mg= 1 tab(s), Oral, BID Percocet 5 mg-325 mg oral tablet, 1 tab(s), Oral, q6hr, PRN Follow-up With When Contact Information Brigitte Garcia In 3 days 10/17/[address] [place] [address] A [place] [phone] Business (1) Additional Instructions: Return to the emergency room if your pain gets worse or any new symptoms. Patient Education Muscle Strain Problem List/Past Medical History Ongoing Abdominal fullness Abdominal pain Acute constipation Allergic rhinitis Anemia B12 deficiency BMI 34.0-34.9,adult Bronchitis DDD (degenerative disc disease), lumbar DDD (degenerative disc disease), lumbosacral Discoloration of skin of toe Dizziness E-coli UTI Exposure to COVID-19 virus Fatigue Flank pain Former smoker Frequency of urination LALO (generalized anxiety disorder) Gastroesophageal reflux disease Hematuria Hiatal hernia History of cervical cancer History of kidney stones HLD (hyperlipidemia) Hydronephrosis with urinary obstruction due (more content not included)... Normal [facility] Comment on above: Result Comment: Elec tronically Signed By: Dann Whitmore M.D.\.br\Date and Time Signed: 10/14/24 18:41 EST ED Patient Summaryon 025 ED Patient Summary ED Patient Summary [address] [address] Patient Discharge Instructions Person Information Name: JANA CABALLERO Age: 53 Years Arrival Date: 10/14/2024 12:01:35 Discharge Diagnosis: 1:Strain of left groin Primary Care Physician: Brigitte Carpenter Provider Information Primary Provider: Dann Whitmore M.D. Advanced Asset Management Analyst:None The exam and treatment you received in the Emergency Department were for an urgent problem and are not intended as complete care. It is important that you follow up with a doctor, nurse practitioner, or physician???s accounting administrative assistant for ongoing care. If your symptoms become worse or you do not improve as expected and you are unable to reach your usual health care provider, you should return to the Emergency Department. We are available 24 hours a day. JANA CABALLERO has been given the following list of patient education materials, prescriptions and follow-up instructions: Follow-up Instructions: With: Address: When: Brigitte Garcia [address] [place] [address], [address], [place] [phone] [facility] () In 3 days 10/17/2024 Comments: Return to the emergency room if your pain gets worse or any new symptoms. In the event that this physician does not participate in your insurance network, please consult with your insurance company to find a nearby participating provider. Patient Education Materials: Muscle Strain A MESSAGE TO ALL PATIENTS REGARDING OPIOIDS PRESCRIPTION OPIOIDS: WHAT YOU NEED TO KNOW Prescription opioids can be used to help relieve [id number] pain and are often prescribed following a surgery or injury, or for certain health conditions. These medications can be an important part of the treatment but also come with serious risks. It is important to work with your healthcare provider to make sure you are getting the safest, most effective care. WHAT ARE THE RISKS AND SIDE EFFECTS OF OPIOID USE? Prescription opioids carry serious risks of addiction and overdose, especially with prolonged use. An opioid overdose, often marked by slowed breathing, can cause sudden . The use of prescription opioids can have a number of side effects as well, even when taken as directed: ??? Tolerance???meaning you might need to take more of the medication for the same pain relief ??? Physical dependence???meaning you have symptoms of withdrawal when a medication is stopped ??? Increased sensitivity to pain ??? Constipation ??? Nausea, vomiting, and dry mouth ??? Sleepiness and dizziness ??? Confusion ??? Depression ??? Low levels of testosterone that can result in lower sex drive, energy, and strength ??? Itching and sweating RISKS ARE GREATER WITH: ??? History of drug misuse, substance use disorder, or overdose ??? Mental health conditions (such as depression or anxiety) ??? Sleep apnea ??? Older age (65 years and older) ??? Avoid alcohol while taking prescription opioids. Also, unless specifically advised by your health care provider, medications to avoid include: ??? Benzodiazepines (such as Xanax or Valium) ??? Muscle relaxants (such as Soma or Flexeril) ??? Hypnotics (such as Ambien or Lunesta) ??? Other prescription opioids KNOW YOUR OPTIONS Talk to your health care provider about ways to manage your pain that don???t involve prescription opioids. Some of these options may actually work better and have fewer risks and side effects. Options may include: ??? Pain relievers such as acetaminophen, ibuprofen, and naproxen ??? Some medication that are also used for depression or seizures ??? Physical therapy and exercise ??? Cognitive behavioral therapy, a psychological, goal-directed approach, in which patients learn how to modify physical, behavioral, and emotional triggers of pain and stress. IF YOU ARE PRESCRIBED OPIOIDS FOR PAIN: ??? Never take opioids in greater amounts or more often than prescribed. ??? Follow up with your primary health care provider. o Work together to create a plan on how to manage your pain. o Talk about ways to help manage your pain that don???t involve prescription opioids. o Talk about any and all concerns and side effects. ??? Help prevent misuse and abuse o Never sell or share prescription opioids. o Never use another person???s prescription opioids. ??? Store prescription opioids in a secure place and out of reach of others (this may include visitors, children, friends, and family). ??? Safely dispose of unused prescription opioids: Find your community drug take-back program or your pharmacy mail-back program, or flush them down the toilet, following guidance from the Food and Drug Administration (www.fda.gov/Drugs/Resource sForYou). ??? Visit www.cdc.gov/drugoverdose to learn about the risks of opioids abuse and overdose. ??? (more content not included)... Normal [facility] Mamm Screen w/CAD if perf and 3D Bilon 09-27-2024 MA Mamm Screen w/CAD if perf and 3D Tye Exam Date/Time: 09/25/2024 08:56 EST Reason for Exam: Z12.31;Screening Report IMPRESSION: BIRADS 1 NEGATIVE, NORMAL INTERVAL FOLLOW-UP.12 MONTH RECALL. CLINICAL HISTORY: Screening, Z12.31. COMPARISON: 09/01/2017. COMMENT: Routine views and tomosynthesis views of both breasts were obtained. There are scattered areas of fibroglandular density. No dominant breast mass nor neoplastic calcifications are identified in either breast. There has been decrease in density of the breasts compared to the previous exam, consistent with involutional change. The examination was reviewed with Computer Aided Detection. Breast Density: No Mammography is very important to your health. The current [employer] and National Comprehensive Cancer Network guidelines recommends annual mammography beginning at age 40. This facility utilizes a reminder system to ensure all patients receive reminder notifications at the appropriate time based on the recommendations of this exam. Board Certified Radiologists. Accredited by the ACR and FDA. Ordering Provider: Brigitte Garcia FINAL REPORT Dictated: 09/27/2024 12:56 pm Sam Michael M.D. Signed (Electronic Signature): 09/27/2024 12:56 pm Signed by: Sam Michael M.D. Transcribed by: JG Technologist: LIZZY Assessment: BI-RADS Category 1-Negative Recommendation: Normal interval follow-up Normal [facility] Ambulatory Visit Summaryon 1 11-08-2023 Ambulatory Visit Summary Ambulatory Visit Summary JANA CABALLERO :1970 Visit Date:09/07/2024 Ambulatory Visit Instructions Your Diagnosis Hypocalcemia Vitamin D deficiency B12 deficiency Prediabetes HLD (hyperlipidemia) Osteoarthritis of left hip Scoliosis DDD (degenerative disc disease), lumbosacral BMI 34.0-34.9,adult Your Care Team Attending Physician - Brigitte Carpenter Primary Care Physician - Brigitte Carpenter This Is Your Medications List calcium carbonate (calcium 500 mg tablets) Contact prescribing physician if questions or concerns albuterol (albuterol HFA 90 mcg/inh MDI) cholecalciferol (cholecalciferol 50,000 intl units oral capsule) ciclopirox topical (Ciclodan 8% topical solution) escitalopram (escitalopram 10 mg Tab) ferrous sulfate (ferrous sulfate 325 mg Tab) ibuprofen (ibuprofen 600 mg Tab) lidocaine topical (lidocaine Top 5% film Patch) multivitamin with minerals (One A Day Women's Complete oral tablet) ondansetron (Zofran ODT 4 mg Tab-Dis) pantoprazole (Pantoprazole [address] Tab) predniSONE (predniSONE 10 mg Tab) tamsulosin (Flomax 0.4 mg Cap) [Image Removed: STOP]Stop taking these medications ferrous sulfate (ferrous sulfate 325 mg oral enteric coated tablet) meloxicam (Mobic 7.5 mg Tab) Procedures Performed Cystoscopy (03/07/2020), :LEEP, exam under anesthesia (10/06/2016), hernia repair (11/25/2015), incisional hernia repair (05/13/2015), (2003), Tubal ligation (2003), Cancer cervix screening - up-to-date, lymph nodes removed from abdomen, T&A, urethra dialation. Discharge Vitals Temperature (Temporal Artery) 36.2 ???C Heart Rate (Peripheral) 68 Respiratory Rate 18 Blood Pressure 134/74 Height 170 cm Height 67 in Weight 99.2 kg Weight 218.698 lb BMI 34.33 What to do next Scheduled Follow-Up Appointments Tuesday 8:30 AM EST Where: [facility] Someone Will Contact You Regarding These Appointments [facility] Referral, Orthopaedics, 09/07/24 12:20:00 EST, Osteoarthritis of left hip Scoliosis DDD (degenerative disc disease), lumbosacral Medications What How Much When Why Instructions New calcium carbonate (calcium 500 mg tablets) 2 Tablets By Mouth 2 times a day Refills: 3 Pickup at [email or web address] #[id number] Unchanged albuterol (albuterol HFA 90 mcg/ inh MDI) 2 Puffs Inhalation Every 4 hours as needed for for wheezing Smoking Contact prescribing physician if questions or concerns Unchanged cholecalciferol (cholecalciferol 50,000 intl units oral capsule) 1 Capsules By Mouth Every 7 days Vitamin D deficiency Contact prescribing physician if questions or concerns Unchanged ciclopirox topical (Ciclodan 8% topical solution) 1 Application Topical Every day Onychomycosis Apply to great toe after shower , file nail, daily to affected area Contact prescribing physician if questions or concerns Unchanged escitalopram (escitalopram 10 mg Tab) 1 Tablets By Mouth Every day Generalized anxiety disorder Contact prescribing physician if questions or concerns Unchanged ferrous sulfate (ferrous sulfate 325 mg Tab) 1 Tablets By Mouth Every day Anemia Contact prescribing physician if questions or concerns Unchanged ibuprofen (ibuprofen 600 mg Tab) 1 Tablets By Mouth Every 8 hours as needed for Pain/Fever Contact prescribing physician if questions or concerns Unchanged lidocaine topical (lidocaine Top 5% film Patch) 1 Patches Topical Every day apply 12 hours on and 12 hours off daily Contact prescribing physician if questions or concerns Unchanged multivitamin with minerals (One A Day Women's Complete oral tablet) 1 Tablets By Mouth Every day Wellness examination Contact prescribing physician if questions or concerns Unchanged ondansetron (Zofran ODT 4 mg Tab-Dis) 1 Tablets By Mouth Every 6 hours Contact prescribing physician if questions or concerns Unchanged pantoprazole (Pantoprazole [address] Tab) 1 Tablets By Mouth Every day Chronic GERD Contact prescribing physician if questions or concerns Unchanged predniSONE (predniSONE 10 mg Tab) 1 Dose Separtor By Mouth As Directed Take 3 tabs by mouth daily x5 days, then 2 tabs daily x5 days, then 1 tab daily x5 days. Contact prescribing physician if questions or concerns Unchanged tamsulosin (Flomax 0.4 mg Cap) 1 Capsules By Mouth Every day Contact prescribing physician if questions or concerns Pharmacy Information [facility] #[id number]: [address] [place], [place] [id number] [phone] What How Much When Why Comments Stop Taking ferrous sulfate (ferrous sulfate 325 mg oral enteric coated tablet) 1 Tablets By Mouth Every day Iron deficiency anemia may take with food to minimize abdominal discomfort - best with vitamin C - avoid milk, may take everyother day if constipation develops Stop Taking meloxicam (Mobic 7.5 mg Tab) 1 Tablets By Mouth Every day Osteoarthritis of left hip Left-sided low back pain with sciat (more content not included)... Normal [facility] Family Medicine Office/Clini c Noteon 09-07-2024 Family Medicine Office/Clinic Note Family Medicine Office/Clinic Note Chief Complaint patient in for recheck medication and labs HPI Staff Patient is here for 4 month medication review and to discuss recent test results Questions/concerns: Refills: History of Present Illness Patient here to follow-up on her new diagnosis of prediabetes. Her A1c was 6.0. Patient has never had this diagnosis before. Obesity: patient does struggle with her weight her BMI is currently 34 and she weighs about 218 pounds. A weight loss goal for her would be to get below 190 which would put her out of the obesity range and into the overweight range. She states she felt good at younger age at about 140 to 150 pounds. Arthritis and hip pain X-rays confirm some mild scoliosis degenerative disc disease in the lumbar region and she has been complaining of left hip pain. X-rays do show mild degenerative hip arthritis. Patient has not seen an orthopedics specialist in the past She recently started meloxicam 7.5 mg and prednisone. She does not report much improvement she still struggles with some chronic low back pain and hip pain and reports occasional clicking and grinding of the joint Patient denies any incontinence of bowel or bladder no saddle paresthesia and no weakness of the lower extremities Lab work shows mild hypocalcemia. Patient does not report any muscle twitching or facial cramping Patient has not taken any supplements in the past for this Vitamin D deficiency noted Patient was previously started on vitamin D 50,000 units once weekly B12 level slightly low and iron level slightly low She reports mild chronic fatigue- Patient recently started taking daily iron 325 mg.-She still needs to schedule colonoscopy Patient will get a new prescription for B12 supplement 1000 mcg daily Patient asks if she should file for disability due to the above complaints. I told her know she should keep working as long as she can Review of Systems PHQ Score Initial Depression Screen Score: 0 SCORE Physical Exam Vitals & Measurements T: 36.2 ???C(Temporal Artery) HR: 68(Peripheral) RR: 18 BP: 134/74 HT: 67 in HT: 170 cm WT: 99.2 kg WT: 218.698 lb BMI: 34.33 General: alert, no acute distress, _well appearing, _pleasant, older female here with her grandson Jeffery in room 6 today ambulating without difficulty ENMT: oral mucosa moist, no pharyngeal erythema or exudate, patient is edentulous, moist mucous membranes noted Cardiovascular: regular rate and rhythm, normal peripheral perfusion, noedema Respiratory: no distress, Lungs CTA, respirations non labored Extremities: no deformity, no trauma Spine, no cervical or thoracic spine tenderness, mild lumbar spine tenderness with slight curvature noted with the left hip slightly higher riding, positive straight leg test is less than previous exam, negative straight leg test on the right Neurological: oriented x 4, LOC appropriate for age, CN II-XII intact, motor strength equal & normal bilaterally, sensation equal & normal bilaterally, speech normal, slightly anxious Integumentary: intact, warm & dry, no rashes, no open sores X-rays from August 30 Reason For Exam let hip pain;Hip pain POWERSCRIBE REPORT IMPRESSION: MILD TO MODERATE DEGENERATIVE CHANGE LEFT HIP. CLINICAL HISTORY: Hip pain, let hip pain COMPARISON: NONE. FINDINGS: Mild to moderate joint space narrowing left hip. No fracture, dislocation, or bone lesion. Ordering Provider: Brigitte Garcia Reason For Exam left sided sciatica;Arthritis POWERSCRIBE REPORT IMPRESSION: Moderate degenerative change, scoliosis, lumbar spine. CLINICAL INFORMATION: Arthritis, left sided sciatica COMPARISON: NONE. COMMENT: 9 views. Mild scoliosis, convexity to left apex L4. Diffuse disc space thinning L4-L5 and L5-S1 with posterior disc space narrowing L3-L4. No fracture, dislocation, bone lesion. Assessment/Plan 1. Hypocalcemia (E83.51: Hypocalcemia) Will treat with 1000 twice daily calcium supplement new prescription sent to the pharmacy. Encouraged continued dietary adequate calcium consumption Educated patient that they this may lead to early osteoporosis Will recheck a complete metabolic panel in 3 to 6 months Ordered: [facility] Referral 2. Vitamin D deficiency (E55.9: Vitamin D deficiency, unspecified) Patient was placed on vitamin D supplement after the last visit Counseled pt that Vit D levels are checked routinely if diagnosed with osteoporosis, fatigue, depression, unexplained wt loss or anemia. If lab is < 30 will treat with 50,000 units/wk x 3mo of cholecalciferol (Vitamin D3) and repeat D25H labs after treatment. If WNL, will continue cholecalciferol 1,000 units/day thereafter. Also counseled pt that Vit D can be increased by safe exposure to sunlight for at least 15 min/day. Follow-up with recheck in 3 to 6 months Ordered: Vitamin D 25 Hydroxy 3. B12 deficiency (E53.8: Deficiency of other speci (more content not included)... Normal [facility] Comment on above: Result Comment: Elec tronically Signed By: Brigitte Carpenter\.br\Date and Time Signed: 09/07/24 12:45 EST XR Hip 2-3 Views Left + Pelv heath 09-03-2024 XR Hip 2-3 Views Left + Pelvis Exam Date/Time: 08/30/2024 12:56 EST Reason for Exam: let hip pain;Hip pain Report IMPRESSION: MILD TO MODERATE DEGENERATIVE CHANGE LEFT HIP. CLINICAL HISTORY: Hip pain, let hip pain COMPARISON: NONE. FINDINGS: Mild to moderate joint space narrowing left hip. No fracture, dislocation, or bone lesion. Ordering Provider: Brigitte Garcia FINAL REPORT Dictated: 09/03/2024 11:28 am Nahum Monson MD Signed (Electronic Signature): 09/03/2024 11:28 am Signed by: Nahum Monson MD Transcribed by: JG Technologist: MINOR Technical Comments Radiation Dose: Ka,r in mGy = na DAP = na Normal [facility] XR Spine Lumbar Complete Inc luding Bendion 09-03-2024 XR Spine Lumbar Complete Including Bendi Exam Date/Time: 08/30/2024 12:58 EST Reason for Exam: left sided sciatica;Arthritis Report IMPRESSION: Moderate degenerative change, scoliosis, lumbar spine. CLINICAL INFORMATION: Arthritis, left sided sciatica COMPARISON: NONE. COMMENT: 9 views. Mild scoliosis, convexity to left apex L4. Diffuse disc space thinning L4-L5 and L5-S1 with posterior disc space narrowing L3-L4. No fracture, dislocation, bone lesion. Ordering Provider: Brigitte Garcia FINAL REPORT Dictated: 09/03/2024 11:31 am Nahum Monson MD Signed (Electronic Signature): 09/03/2024 11:31 am Signed by: Nahmu Monson MD Transcribed by: JG Technologist: MINOR Technical Comments Radiation Dose: Ka,r in mGy = na DAP = na Normal [facility] Lab Miscellaneous-LCon 08-31 Lab Miscellaneous COMMENT Invalid Interpretation Code [facility] Comment on above: Result Comment: Test Ordered: [id number] Hemoglobin A1c Hemoglobin A1c 6.0 [H ] % Reference Range: 4.8-5.6 Prediabetes: 5.7 - 6.4 Diabetes: >6.4 Glycemic control for adults with diabetes: <7.0 Performed at: [facility] [address] [place], [place] [id number] PhD Martin Rivas Performed By: #### 1 [id number] #### [facility] [address] [place] [address] CHEMISTRYOrdered By: SYSTEM SYSTEM on 08-29-2024 25-hydroxyvitamin D3 [Mass/Vol] 10.2 ng/mL Low 30.0 - 100.0 ng/mL Remisol Chem Albumin [Mass/Vol] 3.9 g/dL Normal 3.3 - 5.0 gm/dL Rem[facility] Chem Albumin/Globulin [Mass ratio] 1.5 {ratio} Normal 1.1 - 2.2 [facility] ALP [Catalytic activity/Vol] 76 [iU]/d Normal 21 - 98 Int._Unit/L [facility] Chem ALT No additional P-5'-P [Catalytic activity/Vol] 9 [iU]/d Normal 6 - 46 Int._Unit/L [facility] Anion gap [Moles/Vol] 11 mmol/L Normal 6 - 16 mEq/L [facility] AST [Catalytic activity/Vol] 9 [iU]/d Normal 5 - 43 Int._Unit/L [facility] Bilirubin [Mass/Vol] 0.3 mg/dL Normal 0.0 - 1 .1 mg/dL [facility] Calcium [Mass/Vol] 8.8 mg/dL Low 8.9 - 11. 1 mg/dL [facility] Chloride [Moles/Vol] 106 mmol/L Normal 101 - 1 11 mmol/L [facility] Cholesterol [Mass/Vol] 212 mg/dL High 120 - 200 mg/dL [facility] Cholesterol in HDL [Mass/Vol] 58 mg/dL Invalid Interpretation Code [facility] Comment on above: Result Comment: '>= 60 LOW RISK' '<= 40 HIGH RISK' Cholesterol in LDL [Mass/Vol] 133 mg/dL High <=129mg/dL [facility] Cholesterol in VLDL [Mass/Vol] 37 mg/dL Normal 7 - 40 mg/dL [facility] CO2 [Moles/Vol] 30 mmol/L Normal 21 - 31 mmol/L [facility] Cobalamin (Vitamin B12) [Mass/Vol] 160 pg/mL Normal 50 - 1500 pg/mL [facility] Creatinine [Mass/Vol] 0.7 mg/dL Normal 0.5 - 1.3 mg/dL [facility] eGFR 103 mL/min/1.73 m2 Normal >=59mL/mi n/ 1.73 m2 [facility] Ferritin [Mass/Vol] 16 ng/mL Normal 11 - 307 ng/mL [facility] Globulin (S) [Mass/Vol] 2.6 g/dL Normal 1.4 - 4.0 gm/dL [facility] Glucose [Mass/Vol] 99 mg/dL Normal 55 - 199 mg/dL [facility] Iron [Mass/Vol] 43 ug/dL Normal 35 - 153 mcg/dL [facility] Iron binding capacity [Mass/Vol] 354 ug/dL Normal 250 - 400 mcg/dL [facility] Lipase [Catalytic activity/Vol] 45 U/L Normal 13 - 58 unit/L [facility] Potassium [Moles/Vol] 4.0 mmol/L Normal 3.5 - 5.3 mmol/L [facility] Protein [Mass/Vol] 6.5 g/dL Normal 6.0 - 7.8 gm/dL [facility] Sodium [Moles/Vol] 143 mmol/L Normal 135 - 145 mmol/L [facility] Transferrin [Mass/Vol] 253 mg/dL Normal 200 - 370 mg/dL [facility] Triglyceride [Mass/Vol] 187 mg/dL High <=149mg/dL [facility] TSH Qn 1.07 m[IU]/L Normal 0.34 - 5.60 mcIU/mL [facility] Urea nitrogen [Mass/Vol] 13 mg/dL Normal 5 - 21 mg/dL [facility] Urea nitrogen/Creatinine [Mass ratio] 19 mg/mg Normal 10 - 20 Rem[facility] Chem Albumin DL <= 20 mg/L (U) [Mass/Vol] 9.1 mg/dL High 0.0 - 1.9 mg/dL [facility] Chem Protein/Creatinine (U) [Ratio] 18.70 mg/gm Cr Normal 0.00 - 200.00 mg/gm Cr Remisol Chem U Creatinine 166.0 mg/dL Invalid Interpretation Code Rem[facility] Chem Ur Total Protein 31.1 mg/dL Invalid Interpretation Code Rem[facility] Chem HEMATOLOGYOrdered By: SYSTEM SYSTEM on 08-29-2024 Reticulocytes/100 RBC (Bld) 1.0 % Normal 0.5 - 2.2 % Rem[facility] Heme Lab Miscellaneous-LCon 08-29 Test Code 887175 Invalid Interpretation Code [facility] Comment on above: Performed By: #### 1 [id number] #### [facility] [address] [place] [address] Test Name Hgb A1c Invalid Interpretation Code [facility] Comment on above: Performed By: #### 1 [id number] #### [facility] [address] [place] [address] Reference Laboratory Testing Ordered By: Radha Menjivar on 08-29-2024 Test Code [id number] 1 Invalid Interpretation Code [facility] Test Name Hgb A1c Invalid Interpretation Code [facility] URINALYSISOrdered By: SYSTEM SYSTEM on 08-29-2024 Bilirubin Ql (U) Negative Normal Negativemg/ dL [facility] UA Auto SS Clarity (U) Clear (08/29/24 1:15 PM) Normal Clear [facility] UA Auto SS Color (U) Yellow 1 (08/29/24 1:15 PM) Normal Yellow [facility] UA Auto SS Comment on above: Interpretive Data: M icroscopic readings are only performed on those samples that meet specific criteria set forth by [facility]. Epithelial cells.squamous Auto (Urine sed) [#/Area] 0-2 graded/HPF Invalid Interpretation Code [facility] UA Auto SS Glucose Ql (U) Negative Normal Negativemg/ dL [facility] UA Auto SS Hemoglobin Auto test strip (U) [Mass/Vol] Trace mg/dL Invalid Interpretation Code Negativemg/ dL [facility] UA Auto SS Ketones Auto test strip Ql (U) Negative Normal Negativemg/ dL [facility] UA Auto SS Leukocyte esterase Auto test strip Ql (U) Negative Normal NegativeLeu /uL FT UA Auto SS Mucus Auto Ql (U) Trace graded/LPF Normal Negati vegra ded/LPF [facility] UA Auto SS Nitrite Auto test strip Ql (U) Negative Normal Negativemg/ dL [facility] UA Auto SS pH (U) 5.5 *NA* (08/29/24 1:15 PM) Invalid Interpretation Code 5.0 - 9.0 [facility] UA Auto SS Protein Ql (U) Trace mg/dL Invalid Interpretation Code Negativemg/ dL [facility] UA Auto SS RBC Ql (U) 0-3 graded/HPF Normal 0-3graded/H PF [facility] UA Auto SS Specific gravity (U) [Rel density] 1.025 *NA* (08/29/24 1:15 PM) Invalid Interpretation Code 1.005 - 1.030 [facility] UA Auto SS Urobilinogen (U) [Mass/Vol] Negative Normal Negativemg/ dL [facility] UA Auto SS WBC Auto (Urine sed) [#/Area] 0-5 graded/HPF Normal 0-5graded/H PF [facility] UA Auto SS URINALYSISOrdered By: Capric e Reza on 08-29-2024 UA Spec Desc Clean Catch (08/29/24 1:15 PM) Normal [facility] UA Auto SS Urinalysison 08-29-2024 Bilirubin Ql (U) Negative Normal Negative [facility] Comment on above: Performed By: #### 1 [id number] #### [facility] [address] [place] [address] Clarity (U) Clear Normal Clear [facility] Comment on above: Performed By: #### 1 [id number] #### [facility] [address] [place] [address] Color (U) Yellow Normal Yellow [facility] Comment on above: Result Comment: Micr oscopic readings are only performed on those samples that meet specific criteria set forth by [facility]. Performed By: #### 1 [id number] #### [facility] [address] [place] [address] Epithelial cells.squamous Auto (Urine sed) [#/Area] 0-2 Invalid Interpretation Code [facility] Comment on above: Performed By: #### 1 [id number] #### [facility] [address] [place] [address] Glucose Ql (U) Negative Normal Negative [facility] Comment on above: Performed By: #### 1 [id number] #### [facility] [address] [place] [address] Hemoglobin Auto test strip (U) [Mass/Vol] Trace Abnormal Negative [facility] Comment on above: Performed By: #### 1 [id number] #### [facility] [address] [place] [address] Ketones Auto test strip Ql (U) Negative Normal Negative [facility] Comment on above: Performed By: #### 1 [id number] #### [facility] [address] [place] [address] Leukocyte esterase Auto test strip Ql (U) Negative Normal Negative [facility] Comment on above: Performed By: #### 1 [id number] #### [facility] [address] [place] [address] Mucus Auto Ql (U) Trace Normal Negative [facility] Comment on above: Performed By: #### 1 [id number] #### [facility] [address] [place] [address] Nitrite Auto test strip Ql (U) Negative Normal Negative [facility] Comment on above: Performed By: #### 1 [id number] #### [facility] [address] [place] [address] pH (U) 5.5 [pH] Invalid Interpretation Code 5.0-9.0 [facility] Comment on above: Performed By: #### 1 [id number] #### [facility] [address] [place] [address] Protein Ql (U) Trace Abnormal Negative [facility] Comment on above: Performed By: #### 1 [id number] #### [facility] [address] [place] [address] RBC Ql (U) 0-3 Normal 0-3 [facility] Comment on above: Performed By: #### 1 [id number] #### [facility] [address] [place] [address] Specific gravity (U) [Rel density] 1.025 Invalid Interpretation Code 1.005-1.030 [facility] Comment on above: Performed By: #### 1 [id number] #### [facility] [address] [place] [address] Urobilinogen (U) [Mass/Vol] Negative Normal Negative [facility] Comment on above: Performed By: #### 1 [id number] #### [facility] [address] [place] [address] WBC Auto (Urine sed) [#/Area] 0-5 Normal 0-5 [facility] Comment on above: Performed By: #### 1 [id number] #### [facility] [address] [place] [address] Type of Urine collection method Clean Catch Normal [facility] Comment on above: Performed By: #### 1 [id number] #### [facility] [address] [place] [address] C Urineon 08-27-2024 Bacteria identified Cx Nom (U) Microbiology PROCEDURE: Urine Culture [R1] SOURCE: U CleanCatch BODY SITE: COLLECTED DATE/TIME: 08/24/2024 23:37 EST RECEIVED DATE/TIME: 08/25/2024 01:23 EST START DATE/TIME: 08/25/2024 01:23 EST FREE TEXT SOURCE: Micah Greer DO, DO, Kaylinn A FINAL REPORTS Final Report [] Verified Date/Time: 08/27/2024 07:13 EST <10,000 cfu/ml Mixed skin contaminants Performing Locations R1: This test was performed at: [facility], [address] [place] [address], [address] , , Normal [facility] Comment on above: Performed By: #### 2 [id number] #### [facility] [address] [place] [address] BMPon 08-25-2024 Anion gap [Moles/Vol] 11 mmol/L Normal 6-16 [facility] Comment on above: Performed By: #### 2 [id number] #### [facility] [address] [address] Calcium [Mass/Vol] 8.8 mg/dL Low 8.9-11.1 [facility] Comment on above: Performed By: #### 2 [id number] #### [facility] [address] [place] [address] Chloride [Moles/Vol] 107 mmol/L Normal 101-111 [facility] Comment on above: Performed By: #### 2 [id number] #### [facility] [address] [place] [address] CO2 [Moles/Vol] 24 mmol/L Normal 21-31 [facility] Comment on above: Performed By: #### 2 [id number] #### [facility] [address] [place] [address] Creatinine [Mass/Vol] 0.9 mg/dL Normal 0.5-1.3 [facility] Comment on above: Performed By: #### 2 [id number] #### [facility] [address] [place] [address] Glucose [Mass/Vol] 107 mg/dL Normal 55-199 [facility] Comment on above: Performed By: #### 2 [id number] #### [facility] [address] [place] [address] Potassium [Moles/Vol] 3.4 mmol/L Low 3.5-5.3 [facility] Comment on above: Performed By: #### 2 [id number] #### [facility] [address] [place] [address] Sodium [Moles/Vol] 139 mmol/L Normal 135-145 [facility] Comment on above: Performed By: #### 2 [id number] #### [facility] [address] [place] [address] Urea nitrogen [Mass/Vol] 19 mg/dL Normal 5-21 [facility] Comment on above: Performed By: #### 2 [id number] #### [facility] [address] [place] [address] Urea nitrogen/Creatinine [Mass ratio] 21 No Units High 10-20 [facility] Comment on above: Performed By: #### 2 [id number] #### [facility] [address] [place] [address] CBC w/ Auto Diffon 4 Basophils/100 WBC (Bld) 1.1 % Normal 0.0-2.0 [facility] Comment on above: Performed By: #### 2 [id number] #### [facility] [address] [place] [address] Basophils/Leukocytes Auto (Bld) [Pure # fraction] 0.1 E9/L Normal 0.0-0.2 [facility] Comment on above: Performed By: #### 2 [id number] #### [facility] [address] [place] [address] Eosinophils (Bld) [#/Vol] 0.2 E9/L Normal 0.0-0.5 [facility] Comment on above: Performed By: #### 2 [id number] #### [facility] [address] [place] [address] Eosinophils/100 WBC (Bld) 2.8 % Normal 0.0-8.0 [facility] Comment on above: Performed By: #### 2 [id number] #### [facility] [address] [place] [address] Erythrocyte distribution width (RBC) [Ratio] 17.4 % High 10.9-14.2 [facility] Comment on above: Performed By: #### 2 [id number] #### [facility] [address] [place] [address] Hematocrit (Bld) [Volume fraction] 33.6 % Low 34.0-46.0 [facility] Comment on above: Performed By: #### 2 [id number] #### [facility] [address] [place] [address] Hemoglobin (Bld) [Mass/Vol] 11.3 g/dL Low 12.0-16.0 [facility] Comment on above: Performed By: #### 2 [id number] #### [facility] [address] [place] [address] Lymphocytes (Bld) [#/Vol] 1.6 E9/L Normal 1.0-4.0 [facility] Comment on above: Performed By: #### 2 [id number] #### [facility] [address] [place] [address] Lymphocytes/100 WBC (Bld) 23.5 % Normal 14.0-50.0 [facility] Comment on above: Performed By: #### 2 [id number] #### [facility] [address] [place] [address] MCH (RBC) [Entitic mass] 27.6 pg Normal 27.0-34.0 [facility] Comment on above: Performed By: #### 2 [id number] #### [facility] [address] [place] [address] MCHC (RBC) [Mass/Vol] 33.7 g/dL Normal 31.4-36.0 [facility] [facility] Comment on above: Performed By: #### 2 [id number] #### [facility] [address] [place] [address] MCV (RBC) [Entitic vol] 81.8 fL Normal 80.0-100.0 [facility] Comment on above: Performed By: #### 2 [id number] #### [facility] [address] [place] [address] Monocytes (Bld) [#/Vol] 0.5 E9/L Normal 0.2-1.0 [facility] Comment on above: Performed By: #### 2 [id number] #### [facility] [address] [place] [address] Neutrophils (Bld) [#/Vol] 4.5 E9/L Normal 2.0-7.5 [facility] Comment on above: Performed By: #### 2 [id number] #### [facility] [address] [place] [address] Neutrophils/100 WBC (Bld) 65.3 % Normal 36.0-75.0 [facility] Comment on above: Performed By: #### 2 [id number] #### [facility] [address] [place] [address] Platelet 267.0 E9/L Normal 150.0-500.0 [facility] Comment on above: Performed By: #### 2 [id number] #### [facility] [address] [place] [address] Platelet mean volume (Bld) [Entitic vol] 8.3 fL Normal 6.4-10.8 [facility] Comment on above: Performed By: #### 2 [id number] #### [facility] [address] [place] [address] RBC (Bld) [#/Vol] 4.1 E12/L Low 4.3-5.9 [facility] Comment on above: Performed By: #### 2 [id number] #### [facility] [address] [place] [address] WBC corrected for nucl RBC Auto (Bld) [#/Vol] 6.9 E9/L Normal 4.0-11.0 [facility] Comment on above: Performed By: #### 2 [id number] #### [facility] [address] [place] [address] [address] Abdomen/Pelvis w/o Contra storachel 08-25-2024 CT Abdomen/Pelvis w/o Contrast Exam Date/Time: 08/24/2024 23:58 EST Reason for Exam: Flank pain hx kidney stone;Pain Report IMPRESSION: MODERATE RIGHT HYDRONEPHROSIS AND HYDROURETER, SMALL RIGHT UPJ CALCULUS PROBABLE ADJACENT MILD DEBRIS AND/OR BLOOD PRODUCTS. MILD INFLAMMATION AROUND AN ESSENTIALLY DECOMPRESSED URINARY BLADDER. INFECTION SHOULD BE EXCLUDED CLINICALLY. NUMEROUS SMALL RENAL CALCULI OR OTHER CHRONIC FINDINGS, NECESSARILY CHANGED. CLINICAL HISTORY: Pain, Flank pain hx kidney stone. COMPARISON: 06/03/2024. TECHNIQUE: Spiral unenhanced images were obtained of the abdomen and pelvis without contrast. All CT scans at this facility use dose modulation, iterative reconstruction, and/or weight based dosing when appropriate to reduce radiation dose to as low as reasonably achievable. Unless otherwise stated, incidental findings identified in this report do not require routine follow-up imaging. FINDINGS: Liver: No enlargement, significant fatty infiltration, or suspicious lesion identified without contrast. Biliary: The gallbladder is unremarkable. No abnormal biliary ductal dilatation. Pancreas: No mass, organized fluid collection, or abnormal pancreatic ductal dilatation. Spleen: Unremarkable. Adrenals: Unremarkable. Kidneys: Moderate right hydronephrosis and hydroureter, with an approximately 2 to 3 mm calculus and mild soft tissue density near the dependent right UPJ. Mild ill-defined right perinephric edema. No other ureteral calculi. Numerous predominantly right upper pole renal calculi and a chronic low density marginally calcified subcapsular collection appear otherwise unchanged. No significant left renal calculi or suspicious mass. GI tract: No abnormal dilation or wall thickening. Lymph nodes: No pathologically enlarged lymph nodes. Vasculature: No aneurysm. Mesentery/peritoneum/retrop eritoneum: No ascites, organized fluid collection, inflammatory changes, or suspicious mass. Pelvis: Mild inflammation around an essentially decompressed urinary bladder. No bladder calculi or other significant changes from 06/03/2024 identified. Bones/soft tissue: No acute osseous findings identified. Chronic mild L3 compression fracture, degenerative and postradiation changes. Report Lower thorax: Noncontributory. Ordering Provider: Micah Greer FINAL REPORT Dictated: 08/25/2024 1:20 pm Jean Claude Traylor MD Signed (Electronic Signature): 08/25/2024 1:20 pm Signed by: Jean Claude Traylor MD Transcribed by: JG Technologist: CHAYA Technical Comments Rectal Contrast Given? No Oral contrast amount in ml's: 0 Normal [facility] ED Clinical Summaryon 2023 ED Clinical Summary ED Clinical Summary [address] [address] ED Clinical Summary Person Information Name: JANA CABALLERO [facility] Age: 53 Years : 1970 Sex: Female Language: Syrian PCP: Brigitte Carpenter Marital Status: Phone: [phone] MRN: Visit Id: Visit Reason: Hematuria; Flank pain; Nausea; KIDNEY STONES Speciality: Acuity: 3 Enc Type: Emergency Med Service: Emergency Arrival: 08/24/2024 23:18:15 Discharge: 08/25/2024 01:59:28 LOS: 000 02:41 Checkin: 08/24/2024 23:18:15 Checkout: 08/25/2024 01:59:28 Dispo Type: Home (Routine DC) EVENTS: Event Name Event Status Request Date/Time Start Date/Time Complete Date/Time Arrive Complete 08/24/2024 23:18:15 08/24/2024 23:18:15 08/24/2024 23:18:15 Document Home Meds Request 08/24/2024 23:18:15 Triage Complete 08/24/2024 23:18:15 08/24/2024 23:22:55 08/24/2024 23:22:55 Dr Exam Complete 08/24/2024 23:19:25 08/24/2024 23:19:25 08/24/2024 23:19:25 Registration Complete 08/24/2024 23:19:25 08/24/2024 23:20:56 08/24/2024 23:20:56 Reg Complete Request 08/24/2024 23:20:56 Reg Bed Request Complete 08/24/2024 23:20:56 08/24/2024 23:20:56 08/24/2024 23:20:56 Bed Assign Complete 08/24/2024 23:22:12 08/24/2024 23:22:12 08/24/2024 23:22:12 RN Exam Complete 08/24/2024 23:22:12 08/24/2024 23:35:04 08/24/2024 23:35:04 Pending Labs Complete 08/24/2024 23:26:55 08/24/2024 23:45:10 08/25/2024 00:21:17 Lab Complete 08/24/2024 23:26:55 08/25/2024 00:21:17 CT Complete 08/24/2024 23:26:55 08/24/2024 23:27:32 08/24/2024 23:58:12 Pending Labs Complete 08/24/2024 23:49:45 08/24/2024 23:49:45 08/24/2024 23:49:45 Pending Labs Complete 08/24/2024 23:59:03 08/24/2024 23:59:03 08/25/2024 00:21:17 Lab Complete 08/24/2024 23:59:03 08/24/2024 23:59:03 08/25/2024 00:21:17 Pending Labs Inlab 08/25/2024 00:03:01 08/25/2024 00:03:01 Lab Inlab 08/25/2024 00:03:01 08/25/2024 00:03:01 Meds Admin Complete 08/25/2024 01:15:11 08/25/2024 01:58:06 Discharge Complete 08/25/2024 01:17:11 08/25/2024 01:59:33 08/25/2024 01:59:33 Meds Admin Complete 08/25/2024 01:25:04 08/25/2024 01:58:06 Transfer Complete 08/25/2024 01:59:33 08/25/2024 01:59:33 08/25/2024 01:59:33 ADDRESS: [facility] [phone] PHYS DOC NOTES: MEDICAL INFORMATION: Prescriptions Given: New Medications [id number], [address] [place] [phone], [phone] acetaminophen-oxycodone (Percocet 5 mg-325 mg oral tablet) 1 Tablets By Mouth every 6 hours for 3 Days. Refills: 0. cephalexin (Keflex 500 mg Cap) 1 Capsules By Mouth 3 times a day for 5 Days. Refills: 0. ondansetron (Zofran ODT 4 mg Tab-Dis) 1 Tablets By Mouth every 6 hours. Refills: 0. tamsulosin (Flomax 0.4 mg Cap) 1 Capsules By Mouth every day. Refills: 0. Medications to Continue with No Changes Other Medications albuterol (albuterol HFA 90 mcg/inh MDI) 2 Puffs Inhalation every 4 hours as needed for wheezing. Refills: 3. ciclopirox topical (Ciclodan 8% topical solution) 1 Application Topical every day. Apply to great toe after shower , file nail, daily to affected area. Refills: 3. escitalopram (escitalopram 10 mg Tab) 1 Tablets By Mouth every day. Refills: 3. ferrous sulfate (ferrous sulfate 325 mg Tab) 1 Tablets By Mouth every day. Refills: 3. ibuprofen (ibuprofen 600 mg Tab) 1 Tablets By Mouth every 8 hours as needed Pain/Fever. Refills: 0. lidocaine topical (lidocaine Top 5% film Patch) 1 Patches Topical every day. apply 12 hours on and 12 hours off daily. Refills: 0. meloxicam (Mobic 7.5 mg Tab) 1 Tablets By Mouth every day. Refills: 0. multivitamin with minerals (One A Day Women's Complete oral tablet) 1 Tablets By Mouth every day. Refills: 0. pantoprazole (Pantoprazole [address] Tab) 1 Tablets By Mouth every day. Refills: 4. predniSONE (predniSONE 10 mg Tab) 1 Dose Separtor By Mouth As Directed. Take 3 tabs by mouth daily x5 days, then 2 tabs daily x5 days, then 1 tab daily x5 days.. Refills: 0. PATIENT EDUCATION INFORMATION: Instructions: Kidney Stones, Xuav-[id number]-[id number] Follow up: With: Address: When: Beatriz Davies In 3 days 08/28/2024 Comments: Take the Flomax once daily until you have completed the course. You can use the pain medication, nausea medication as prescribed as needed for pain and nausea. Please follow-up with your primary care doctor for further evaluation and management. Please return to the ED for any new or worsening symptoms. With: Address: When: Brigitte Garcia [address] [place] [address] A, [place] [phone] [facility] ([employer] In 3 days 08/28/2024 DIAGNOSIS: Colic, ureteral Normal [facility] ED Note-Physicianon 08-25-20 ED Note-Physician ED Note-Physician Basic Information Time Seen: Micah Greer DO 08/24/2024 23:19 Chief Complaint Pt to ED via [facility] for c/o R flank pain and hematuria. Pt hx of kidney stones; states she has passed a couple over the last day.15 mg Toradol and 4mg of Zofran in route. Pain reduced from an 8/10 to a 4/10. Follows with Jose. History of Present Illness Patient is a 53-year-old female with past medical history of recurrent kidney stones, hypertension presenting to the ED for evaluation of right-sided flank pain. Patient states the pain started 2 days ago has progressively worsened. Patient states she has been having associated nausea. Patient states she has passed several kidney stones. Denies any fevers, chills, chest pain or shortness of breath. Received Toradol and Zofran by EMS with improvement of her symptoms. Review of Systems A 10 point review of systems is negative except as noted above. Medical and Surgical History: Reviewed and noted Social history: Lives at home Tobacco: Denies Physical Exam Vitals & Measurements T: 36.9 ???C(Oral) HR: 76(Peripheral) RR: 18 BP: 124/78 SpO2: 99% HT: 170 cm WT: 101.0 kg BMI: 34.95 General: Well developed, non toxic appearing, no acute distress HEENT: Head atraumatic, Mucosa moist, hearing grossly normal Neck: No JVD, tracheal deviation Cardiac: Regular rate, rhythm, no murmurs, or gallops, 2+ radial pulses Respiratory: Lungs clear to auscultation B/L, normal respiratory effort Abdomen: Soft non tender, no rebound or guarding, no peritoneal signs, right CVA tenderness Extremities: No edema noted in the LE B/L, no tenderness to palpation Neurologic: Alert and oriented, speech clear Skin: No rashes or lesions Psych: Appropriate mood and behavior Medical Decision Making MEDICAL DECISION MAKING Number and Complexity of Problems Differential Diagnosis: [] [facility] Data External documents reviewed: [] My EKG interpretation: [] My CT interpretation: [] My X-ray interpretation: [] My Ultrasound interpretation: [] Decision rules/scores evaluated: [] Discussed with: [] Treatment and Disposition ED Course: Patient is a 53-year-old female presenting to the ED for evaluation of right flank pain. Patient is nontoxic and on arrival, no acute distress. Does have right CVA tenderness on examination. Received Toradol by EMS with improvement of her symptoms. Due to her complaints laboratory evaluation is obtained, CT on pelvis is ordered. Patient's laboratory evaluation is unremarkable there is trace bacteria within her urine, CT ab pelvis shows a 2 to 3 mm stone on the right near the right UPJ with the possible adjacent stones. There is a unchanged subcapsular fluid collection with peripheral calcification. Discussed findings with patient her pain remains controlled. She is discharged home with pain medication, Flomax, Zofran. She is started on antibiotics due to the urine results. She is given referral to urology for further evaluation management. She is to return to the ED for any new or worsening symptoms. Shared decision making: [] Code status: [] Assessment/Plan Colic, ureteral (N23: Unspecified renal colic) Ordered: acetaminophen-oxycodone, 1 tab(s), Oral, q6hr for 3 day(s), 12 tab(s), Refill(s) 0, [email or web address] #[id number], 170, cm, 08/24/24 23:22:00 EST, Height/Length Dosing, 101, kg, 08/24/24 23:22:00 EST, Weight Dosing Orders: ondansetron, 4 mg = 1 tab(s), Oral, q6hr, # 12 tab(s), Refills(s) 0, Pharmacy: [email or web address] #[id number], 170, cm, 08/24/24 23:22:00 EST, Height/Length Dosing, 101, kg, 08/24/24 23:22:00 EST, Weight Dosing ondansetron, 4 mg = 1 tab(s), Tab-Dis, Oral, Once, Stop date 08/25/24 1:14:00 EST, STAT, Start date 08/25/24 1:14:00 EST, 08/25/24 1:14:00 EST oxycodone, 1 EA, Tab, Oral, Once, Stop date 08/25/24 1:14:00 EST, STAT, Start date 08/25/24 1:14:00 EST tamsulosin, 0.4 mg = 1 cap(s), Oral, Daily, # 10 cap(s), Refills(s) 0, Pharmacy: [email or web address] #[id number], 170, cm, 08/24/24 23:22:00 EST, Height/Length Dosing, 101, kg, 08/24/24 23:22:00 EST, Weight Dosing Basic Metabolic Panel CBC w/ Auto Diff CT Abdomen/Pelvis w/o Contrast eGFR Extra Blue Tube Extra SST Tube UA with Cult Rflx Urine Culture Disposition Plan Discharge Prescription List Prescriptions Flomax 0.4 mg Cap, 0.4 mg= 1 cap(s), Oral, Daily Keflex 500 mg Cap, 500 mg= 1 cap(s), Oral, TID Percocet 5 mg-325 mg oral tablet, 1 tab(s), Oral, q6hr Zofran ODT 4 mg Tab-Dis, 4 mg= 1 tab(s), Oral, q6hr Follow-up With When Contact Information Beatriz Davies In 3 days 08/28/2024 EST Additional Instructions: Take the Flomax once daily until you have completed the course. You can use the pain medication, nausea medication as prescribed as needed for pain and nausea. Please follow-up with your primary care doctor for further evaluation and management. Please return to the ED for any new or worsening symptoms. Brigitte Garcia In 3 days (more content not included)... Normal [facility] Comment on above: Result Comment: Elec tronically Signed By: Micah Greer DO\.br\Date and Time Signed: 08/25/24 01:26 EST ED Patient Summaryon 024 ED Patient Summary ED Patient Summary [place] [address] Patient Discharge Instructions Person Information Name: JANA CABALLERO Age: 53 Years Arrival Date: 08/24/2024 23:18:15 Discharge Diagnosis: Colic, ureteral Primary Care Physician: Brigitte Carpenter Provider Information Primary Provider: Micah Greer DO Advanced Asset Management Analyst:None The exam and treatment you received in the Emergency Department were for an urgent problem and are not intended as complete care. It is important that you follow up with a doctor, nurse practitioner, or physician???s accounting administrative assistant for ongoing care. If your symptoms become worse or you do not improve as expected and you are unable to reach your usual health care provider, you should return to the Emergency Department. We are available 24 hours a day. JANA CABALLERO has been given the following list of patient education materials, prescriptions and follow-up instructions: Follow-up Instructions: With: Address: When: Beatriz Davies In 3 days 08/28/2024 Comments: Take the Flomax once daily until you have completed the course. You can use the pain medication, nausea medication as prescribed as needed for pain and nausea. Please follow-up with your primary care doctor for further evaluation and management. Please return to the ED for any new or worsening symptoms. With: Address: When: Brigitte Garcia [address], [address], [place] [phone] Business (1) In 3 days 08/28/2024 In the event that this physician does not participate in your insurance network, please consult with your insurance company to find a nearby participating provider. Patient Education Materials: Kidney Stones, Zbqv-sa-Qgbq A MESSAGE TO ALL PATIENTS REGARDING OPIOIDS PRESCRIPTION OPIOIDS: WHAT YOU NEED TO KNOW Prescription opioids can be used to help relieve vsxasefw-pc-xouyef pain and are often prescribed following a surgery or injury, or for certain health conditions. These medications can be an important part of the treatment but also come with serious risks. It is important to work with your healthcare provider to make sure you are getting the safest, most effective care. WHAT ARE THE RISKS AND SIDE EFFECTS OF OPIOID USE? Prescription opioids carry serious risks of addiction and overdose, especially with prolonged use. An opioid overdose, often marked by slowed breathing, can cause sudden . The use of prescription opioids can have a number of side effects as well, even when taken as directed: ??? Tolerance???meaning you might need to take more of the medication for the same pain relief ??? Physical dependence???meaning you have symptoms of withdrawal when a medication is stopped ??? Increased sensitivity to pain ??? Constipation ??? Nausea, vomiting, and dry mouth ??? Sleepiness and dizziness ??? Confusion ??? Depression ??? Low levels of testosterone that can result in lower sex drive, energy, and strength ??? Itching and sweating RISKS ARE GREATER WITH: ??? History of drug misuse, substance use disorder, or overdose ??? Mental health conditions (such as depression or anxiety) ??? Sleep apnea ??? Older age (65 years and older) ??? Avoid alcohol while taking prescription opioids. Also, unless specifically advised by your health care provider, medications to avoid include: ??? Benzodiazepines (such as Xanax or Valium) ??? Muscle relaxants (such as Soma or Flexeril) ??? Hypnotics (such as Ambien or Lunesta) ??? Other prescription opioids KNOW YOUR OPTIONS Talk to your health care provider about ways to manage your pain that don???t involve prescription opioids. Some of these options may actually work better and have fewer risks and side effects. Options may include: ??? Pain relievers such as acetaminophen, ibuprofen, and naproxen ??? Some medication that are also used for depression or seizures ??? Physical therapy and exercise ??? Cognitive behavioral therapy, a psychological, goal-directed approach, in which patients learn how to modify physical, behavioral, and emotional triggers of pain and stress. IF YOU ARE PRESCRIBED OPIOIDS FOR PAIN: ??? Never take opioids in greater amounts or more often than prescribed. ??? Follow up with your primary health care provider. o Work together to create a plan on how to manage your pain. o Talk about ways to help manage your pain that don???t involve prescription opioids. o Talk about any and all concerns and side effects. ??? Help prevent misuse and abuse o Never sell or share prescription opioids. o Never use another person???s prescription opioids. ??? Store prescription opioids in a secure place and out of reach of others (this may include visitors, children, friends, and family). ??? Safely dispose of unused prescription opioids: Find your (more content not included)... Normal [facility] UA with Cult Rflxon 08-25-20 24 Bacteria Auto Ql (U) 1+ /HPF Abnormal Trace Fish er [facility] Comment on above: Performed By: #### 4 [id number] #### [facility] [address] [place] [address] Bilirubin Ql (U) Negative Normal Negative [facility] Comment on above: Performed By: #### 4 [id number] #### [facility] [address] [place] [address] Clarity (U) Ex.Turbid Abnormal Clear [facility] Comment on above: Performed By: #### 4 [id number] #### [facility] [address] [place] [address] Color (U) [facility] Abnormal Yellow [facility] Comment on above: Result Comment: Micr oscopic readings are only performed on those samples that meet specific criteria set forth by [facility]. Performed By: #### 4 [id number] #### [facility] [address] [place] [address] Epithelial cells.squamous Auto (Urine sed) [#/Area] 0-2 Invalid Interpretation Code [facility] Comment on above: Performed By: #### 4 [id number] #### [facility] [address] [place] [address] Glucose Ql (U) Negative Normal Negative [facility] Comment on above: Performed By: #### 4 [id number] #### [facility] [address] [place] [address] Hemoglobin Auto test strip (U) [Mass/Vol] 3+ mg/dL Abnormal Negative [facility] Comment on above: Performed By: #### 4 [id number] #### [facility] [address] [place] [address] Ketones Auto test strip Ql (U) Negative Normal Negative [facility] Comment on above: Performed By: #### 4 [id number] #### [facility] [address] [place] [address] Leukocyte esterase Auto test strip Ql (U) 25 Conrad/uL Normal Negative [facility] Comment on above: Performed By: #### 4 [id number] #### [facility] [address] [place] [address] Mucus Auto Ql (U) Trace Normal Negative [facility] Comment on above: Performed By: #### 4 [id number] #### [facility] [address] [place] [address] Nitrite Auto test strip Ql (U) Negative Normal Negative [facility] Comment on above: Performed By: #### 4 [id number] #### [facility] [address] [place] [address] pH (U) 5.5 [pH] Invalid Interpretation Code 5.0-9.0 [facility] Comment on above: Performed By: #### 4 [id number] #### [facility] [address] [place] [address] Protein Ql (U) 1+ mg/dL Abnormal Negative [facility] Comment on above: Performed By: #### 4 [id number] #### [facility] [address] [place] [address] RBC Ql (U) >75 Abnormal 0-3 [facility] Comment on above: Performed By: #### 4 [id number] #### [facility] [address] [place] [address] Specific gravity (U) [Rel density] 1.036 Invalid Interpretation Code 1.005-1.030 [facility] Comment on above: Performed By: #### 4 [id number] #### [facility] [address] [place] [address] Urobilinogen (U) [Mass/Vol] Negative Normal Negative [facility] Comment on above: Performed By: #### 4 [id number] #### [facility] [address] [place] [address] WBC Auto (Urine sed) [#/Area] 26-30 Abnormal 0-5 [facility] Comment on above: Performed By: #### 4 [id number] #### [facility] [address] [place] [address] eGFRon 08-25-2024 eGFR 76 mL/min/1.73 m2 Normal >=59 [facility] Comment on above: Performed By: #### 1 [id number] #### [facility] [address] [place] [address] CHEMISTRYOrdered By: SYSTEM SYSTEM on 08-24-2024 Anion gap [Moles/Vol] 11 mmol/L Normal 6 - 16 mEq/L Remisol Chem Calcium [Mass/Vol] 8.8 mg/dL Low 8.9 - 11. 1 mg/dL Remisol Chem Chloride [Moles/Vol] 107 mmol/L Normal 101 - 1 11 mmol/L Remisol Chem CO2 [Moles/Vol] 24 mmol/L Normal 21 - 31 mmol/L Remisol Chem Creatinine [Mass/Vol] 0.9 mg/dL Normal 0.5 - 1.3 mg/dL Remisol Chem eGFR 76 mL/min/1.73 m2 Normal >=59mL/min / 1.73 m2 Remisol Chem Glucose [Mass/Vol] 107 mg/dL Normal 55 - 199 mg/dL Remisol Chem Potassium [Moles/Vol] 3.4 mmol/L Low 3.5 - 5.3 mmol/L Remisol Chem Sodium [Moles/Vol] 139 mmol/L Normal 135 - 145 mmol/L Remisol Chem Urea nitrogen [Mass/Vol] 19 mg/dL Normal 5 - 21 mg/dL Remisol Chem Urea nitrogen/Creatinine [Mass ratio] 21 mg/mg High 10 - 20 Remisol Chem Extra Blueon 08-24-2024 Tube Collected Plasma Yes Invalid Interpretation Code [facility] Comment on above: Performed By: #### [id number] #### [facility] [address] [place] [address] HEMATOLOGYOrdered By: SYSTEM SYSTEM on 08-24-2024 Basophils/100 WBC (Bld) 1.1 % Normal 0.0 - 2.0 % Remisol Heme Basophils/Leukocytes Auto (Bld) [Pure # fraction] 0.1 E9/L Normal 0.0 - 0.2 E9/L Remisol Heme Eosinophils (Bld) [#/Vol] 0.2 E9/L Normal 0.0 - 0.5 E9/L Remisol Heme Eosinophils/100 WBC (Bld) 2.8 % Normal 0.0 - 8.0 % Remisol Heme Erythrocyte distribution width (RBC) [Ratio] 17.4 % High 10.9 - 14.2 % Remisol Heme Hematocrit (Bld) [Volume fraction] 33.6 % Low 34.0 - 46.0 % Remisol Heme Hemoglobin (Bld) [Mass/Vol] 11.3 g/dL Low 12.0 - 16.0 gm/dL Remisol Heme Lymphocytes (Bld) [#/Vol] 1.6 E9/L Normal 1.0 - 4.0 E9/L Remisol Heme Lymphocytes/100 WBC (Bld) 23.5 % Normal 14.0 - 50.0 % Remisol Heme MCH (RBC) [Entitic mass] 27.6 pg Normal 27.0 - 34.0 pg Remisol Heme MCHC (RBC) [Mass/Vol] 33.7 g/dL Normal 31.4 - 36.0 gm/dL Remisol Heme MCV (RBC) [Entitic vol] 81.8 fL Normal 80.0 - 100.0 fL Remisol Heme Monocytes (Bld) [#/Vol] 0.5 E9/L Normal 0.2 - 1.0 E9/L Remisol Heme Monocytes/100 WBC (Bld) 7.3 % Normal 4.0 - 14.0 % Remisol Heme Neutrophils (Bld) [#/Vol] 4.5 E9/L Normal 2.0 - 7.5 E9/L Remisol Heme Neutrophils/100 WBC (Bld) 65.3 % Normal 36.0 - 75.0 % Remisol Heme Platelet 267.0 E9/L Normal 150.0 - 500.0 E9/L Remisol Heme Platelet mean volume (Bld) [Entitic vol] 8.3 fL Normal 6.4 - 10.8 fL Remisol Heme RBC (Bld) [#/Vol] 4.1 E12/L Low 4.3 - 5.9 E12/L Remisol Heme WBC corrected for nucl RBC Auto (Bld) [#/Vol] 6.9 E9/L Normal 4.0 - 11.0 E9/L Remisol Heme Pre-Arrival Noteon Pre-Arrival Note Pre-Arrival Note Pre-Arrival Summary Name: , ncems Current Date: 08/24/2024 23:22:19 EST Gender: Female Date of : Age: 53 Pre-Arrival Type: EMS ETA: 08/24/2024 23:37:00 EST Primary Care Physician: Presenting Problem: flank pain Pre-Arrival User: Brodie Luciano RN Referring Source: Location: [place] Completion Date/Time: 08/24/2024 23:07:00 [facility] Emergency Department Pre-Hospital Report Form Vital Signs: 177/99, 86 nsr, 20, 99% RA Pre-Hospital Report: flank pain radiating around per EMS. Treatment in Route: 20G L AC Response to Treatment: Misc. Issues: Normal [facility] UA with Cult Rflxon 08-24-20 Type of Urine collection method Clean Catch Normal [facility] Comment on above: Performed By: #### [id number] #### [facility] [address] [place] [address] URINALYSISOrdered By: SYSTEM SYSTEM on 08-24-2024 Bacteria Auto Ql (U) 1+ /HPF Invalid Interpretation Code Trace/HPF [facility] UA Auto SS Bilirubin Ql (U) Negative Normal Negativemg/ dL [facility] UA Auto SS Clarity (U) Ex.Turbid *ABN* (08/24/24 11:37 PM) Invalid Interpretation Code Clear [facility] UA Auto SS Color (U) [facility] 1 *ABN* (08/24/24 11:37 PM) Invalid Interpretation Code Yellow [facility] UA Auto SS Comment on above: Interpretive Data: M icroscopic readings are only performed on those samples that meet specific criteria set forth by [facility]. Epithelial cells.squamous Auto (Urine sed) [#/Area] 0-2 graded/HPF Invalid Interpretation Code [facility] UA Auto SS Glucose Ql (U) Negative Normal Negativemg/ dL [facility] UA Auto SS Hemoglobin Auto test strip (U) [Mass/Vol] 3+ mg/dL Invalid Interpretation Code Negativemg/ dL [facility] UA Auto SS Ketones Auto test strip Ql (U) Negative Normal Negativemg/ dL [facility] UA Auto SS Leukocyte esterase Auto test strip Ql (U) 25 Conrad/uL Conrad/uL Normal NegativeLeu /uL [facility] UA Auto SS Mucus Auto Ql (U) Trace graded/LPF Normal Negati vegra ded/LPF [facility] UA Auto SS Nitrite Auto test strip Ql (U) Negative Normal Negativemg/ dL [facility] UA Auto SS pH (U) 5.5 *NA* (08/24/24 11:37 PM) Invalid Interpretation Code 5.0 - 9.0 [facility] UA Auto SS Protein Ql (U) 1+ mg/dL Invalid Interpretation Code Negativemg/ dL [facility] UA Auto SS RBC Ql (U) >75 graded/HPF Invalid Interpretation Code 0-3graded/H PF [facility] UA Auto SS Specific gravity (U) [Rel density] 1.036 *NA* (08/24/24 11:37 PM) Invalid Interpretation Code 1.005 - 1.030 [facility] UA Auto SS Urobilinogen (U) [Mass/Vol] Negative Normal Negativemg/ dL [facility] UA Auto SS WBC Auto (Urine sed) [#/Area] 26-30 graded/HPF Invalid Interpretation Code 0-5graded/H PF [facility] UA Auto SS URINALYSISOrdered By: Madelaine Greer on 08-24-2024 UA Spec Desc Clean Catch (08/24/24 11:37 PM) Normal [facility] UA Auto SS Work Phone: Ambulatory Visit Summaryon 1 10-15-2023 Ambulatory Visit Summary Ambulatory Visit Summary JANA CABALLERO :1970 Visit Date:08/15/2024 Ambulatory Visit Instructions Your Diagnosis BMI 34.0-34.9,adult Other obesity due to excess calories Anemia Osteoarthritis of left hip Left-sided low back pain with sciatica Chronic GERD Generalized anxiety disorder Onychomycosis Smoking Your Care Team Attending Physician - Brigitte Carpenter Primary Care Physician - Brigitte Carpenter This Is Your Medications List albuterol (albuterol HFA 90 mcg/inh MDI) ciclopirox topical (Ciclodan 8% topical solution) escitalopram (escitalopram 10 mg Tab) ferrous sulfate (ferrous sulfate 325 mg Tab) meloxicam (Mobic 7.5 mg Tab) pantoprazole (Pantoprazole [address] Tab) predniSONE (predniSONE 10 mg Tab) Contact prescribing physician if questions or concerns ibuprofen (ibuprofen 600 mg Tab) lidocaine topical (lidocaine Top 5% film Patch) multivitamin with minerals (One A Day Women's Complete oral tablet) Procedures Performed Cystoscopy (03/07/2020), :LEEP, exam under anesthesia (10/06/2016), hernia repair (11/25/2015), incisional hernia repair (05/13/2015), (2003), Tubal ligation (2003), Cancer cervix screening - up-to-date, lymph nodes removed from abdomen, T&A, urethra dialation. Discharge Vitals Temperature (Oral) 36.7 ???C Heart Rate (Peripheral) 73 Respiratory Rate 16 Blood Pressure 130/76 Height 170 cm Height 67 in Weight 98.9 kg Weight 218.037 lb BMI 34.22 What to do next You Need to Complete the Following Comprehensive Metabolic Panel, Blood, Routine collect, 08/15/24, Order for future visit, Lab Collect, Pancreatitis, Print Label By Order Location Lipase Level, Blood, Routine collect, 08/15/24, Order for future visit, Lab Collect, Pancreatitis, Print Label By Order Location XR Hip 2-3 Views Left + Pelvis, 08/15/24, Routine, Order for future visit, Transport Mode: Wheelchair, Reason: Hip pain, No, Osteoarthritis of left hip Left-sided low back pain with sciatica, pp_set_radiology_subspecial ty, [place] - [place] XR Spine Lumbar Complete Including Bending, 08/15/24, Routine, Order for future visit, Transport Mode: Wheelchair, Reason: Arthritis, No, Osteoarthritis of left hip Left-sided low back pain with sciatica, pp_set_radiology_subspecial ty, [place] Medications What How Much When Why Instructions New ciclopirox topical (Ciclodan 8% topical solution) 1 Application Topical Every day Onychomycosis Refills: 3 Apply to great toe after shower , file nail, daily to affected area Pickup at [email or web address] #[id number] New meloxicam (Mobic 7.5 mg Tab) 1 Tablets By Mouth Every day Osteoarthritis of left hip Left-sided low back pain with sciatica Pickup at [email or web address] #[id number] New predniSONE (predniSONE 10 mg Tab) 1 Dose Separtor By Mouth As Directed Take 3 tabs by mouth daily x5 days, then 2 tabs daily x5 days, then 1 tab daily x5 days. Pickup at [email or web address] #[id number] Unchanged albuterol (albuterol HFA 90 mcg/ inh MDI) 2 Puffs Inhalation Every 4 hours as needed for for wheezing Smoking Pickup at [facility] #[id number] Unchanged escitalopram (escitalopram 10 mg Tab) 1 Tablets By Mouth Every day Generalized anxiety disorder Pickup at [facility] #[id number] Unchanged ferrous sulfate (ferrous sulfate 325 mg Tab) 1 Tablets By Mouth Every day Anemia Pickup at [facility] #[id number] Unchanged pantoprazole (Pantoprazole [address] Tab) 1 Tablets By Mouth Every day Chronic GERD Pickup at [facility][id number] Unchanged ibuprofen (ibuprofen 600 mg Tab) 1 Tablets By Mouth Every 8 hours as needed for Pain/Fever Contact prescribing physician if questions or concerns Unchanged lidocaine topical (lidocaine Top 5% film Patch) 1 Patches Topical Every day apply 12 hours on and 12 hours off daily Contact prescribing physician if questions or concerns Unchanged multivitamin with minerals (One A Day Women's Complete oral tablet) 1 Tablets By Mouth Every day Wellness examination Contact prescribing physician if questions or concerns Pharmacy Information [facility] #[id number]: [address] [place], [place] [id number] [phone] Allergies No Known Allergies Problems Ongoing - Any problem that you are currently receiving treatment for. Abdominal fullness Abdominal pain Acute constipation Allergic rhinitis Anemia Bronchitis DDD (degenerative disc disease), lumbar Discoloration of skin of toe Dizziness E-coli UTI Exposure to COVID-19 virus Fatigue Flank pain Former smoker Frequency of urination LALO (generalized anxiety disorder) Gastroesophageal reflux disease Hematuria Hiatal hernia History of cervical cancer History of kidney stones Hydronephrosis with urinary obstruction due to ureteral calculus kidney stones Left-sided low back pain with sciatica Low back pain Malignant tumor of cervix Mild recurrent major depression (more content not included)... Normal [facility] Family Medicine Office/Clini c Noteon 08-15-2024 Family Medicine Office/Clinic Note Family Medicine Office/Clinic Note Chief Complaint Patient here for left hip pain. Also wants to be tested for DM. Left hip pain and concerns regarding anemia and potential diabetes. HPI Staff Patient here to discuss left hip pain, states her feet constantly hurt and they burn, states this has gone on for years. Also wants to get blood work done, she has concerns about diabetes. History of Present Illness No qualifying data available. The patient is a 53-year-old female presenting with concerns regarding osteoarthritis of the left hip and anemia. She reports that the hip pain began around September, with progressive worsening. She describes the pain as being particularly severe upon waking and transitioning from sitting to standing, with occasional radiation to the front of the groin. Past investigations include imaging revealing arthritis in the right hip around September, although current symptoms predominantly involve the left hip. The patient has seen physical therapy as beneficial but hasn't continued beyond two sessions. The patient reported a history of elevated pancreas numbers and frequent visits to the emergency room for conditions including sciatica and kidney stones. Reports of generalized anxiety disorder and onychomycosis were also discussed. Family history reveals a strong tendency for diabetes, and patient records indicate mild to moderate iron deficiency anemia. She is unaware of any diabetic condition but notes elevated lipase levels previously. The patient correlates potential weight changes to lifestyle choices, such as coffee intake and late-night snacking. Review of Systems PHQ Score Initial Depression Screen Score: 0 SCORE - Musculoskeletal: Reports left hip pain particularly with movement and sitting for prolonged periods. - Neurological: Denies headaches unless under stress or inadequate sleep. - Integumentary: Reports thickened and yellow discoloration of toenails, particularly large ones. - Gastrointestinal: Denies current abdominal pain, but reports past heartburn. - General: Notes recent weight gain. Physical Exam Vitals & Measurements T: 36.7 ???C(Oral) HR: 73(Peripheral) RR: 16 BP: 130/76 SpO2: 98% HT: 67 in HT: 170 cm WT: 98.9 kg WT: 218.037 lb BMI: 34.22 General: alert, no acute distress, well appearing, pleasant, obese older female Ear, nose, mouth, throat: oral mucosa moist, no pharyngeal erythema or exudate, edentulous Cardiovascular: regular rate and rhythm, normal peripheral perfusion, no edema Respiratory: no distress, Lungs CTA, respirations non labored Extremities: no deformity, no trauma Abdomen: Normal bowel sounds. Non-tender. Non-distended. No rebound or guarding. Neurological: oriented x 4, LOC appropriate for age, CN II-XII intact, speech normal Integumentary: intact, warm & dry, no rashes, no open sores great toes with thickened discoloration-and yellowing of the first and second toenails bilaterally Psychiatric: cooperative, affect appropriate for age, normal judgement, normal psychiatric thoughts Spine: No cervical thoracic or lumbar spine tenderness was noted, tenderness over the left SI joint and gluteal musculature, tenderness to the left anterior groin with elevation, decreased range of motion of hip left extension and external rotation, negative straight leg test today Assessment/Plan 1. BMI 34.0-34.9,adult (Z68.34: Body mass index [BMI] 34.0-34.9, adult) The standard range for ages 18 and older is >=18.5 and < 25 kg/m2. Your BMI today was above this range, this falls in the overweight to obese category and there are medical benefits to weight loss. We can offer counselling, referral, and/or medical support in addressing this problem. Your BMI and weight management will be followed at subsequent visits. 2. Other obesity due to excess calories (E66.09: Other obesity due to excess calories) - Encourage dietary adjustments, particularly reducing sugar-rich coffee, and engage in the proposed physical therapy to aid weight management. 3. Anemia (D64.9: Anemia, unspecified) - Current anemia is mild to moderate, with iron deficiency being a possible cause. Blood panels including iron, B12, and ferritin are ordered to investigate further. Chronic, continue ferrous sulfate 325 daily, refill provided for patient today Ordered: ferrous sulfate, 325 mg = 1 tab(s), Oral, Daily, # 90 tab(s), Refills(s) 3, Pharmacy: [facility] #[id number], 170, cm, 08/15/24 13:38:00 EST, Height/Length Dosing, 98.9, kg, 08/15/24 13:38:00 EST, Weight Dosing 4. Osteoarthritis of left hip (M16.12: Unilateral primary osteoarthritis, left hip) - Suspected osteoarthritis of the left hip. Recommend meloxicam 7.5 mg daily to control inflammation. X-ray of the left hip ordered to ascertain changes or progression in joint space. Referral to physical therapy emphasizing aquatic therapy is recommended. Follow-up in a month, may need orthopedic evaluation Ordered: meloxicam, 7.5 mg = 1 (more content not included)... Normal [facility] Comment on above: Result Comment: Elec tronically Signed By: Brigitte Carpenter\.br\Date and Time Signed: 08/15/24 14:39 EST Nonvisit Note - PTon 024 Nonvisit Note - PT Nonvisit Note - PT Pt did not arrive for her appointment on 07/30/24 at 10:15am, called pt but she did not answer and her voicemail box was not set up, therefore unable to leave a message to remind her of the next scheduled appointment. Estrella Galvin, INFORMATION TECHNOLOGY INTERN 07/30/24 Normal [facility] Nonvisit Note - PTon Nonvisit Note - PT Nonvisit Note - PT Called to inform pt of no show, however, pt does not have mailbox set up. Will turn in red d/c slip due to attendance if she no shows for her next appointment. Normal [facility] Nonvisit Note - PTon Nonvisit Note - PT Nonvisit Note - PT She didn't show for her appointment today. KK Called and spoke with patient: She stated she tried to call earlier to reschedule. Confirmed her next appointment for 07-26-24 at 1100. Normal [facility] ED Clinical Summaryon 2023 ED Clinical Summary ED Clinical Summary [place] [id number] ED Clinical Summary Person Information Name: JANA CABALLERO [facility] Age: 53 Years : 1970 Sex: Female Language: Syrian PCP: Brigitte Carpenter Marital Status: Phone: [phone] Visit Id: Visit Reason: Headache; Nausea; Flank pain; FLANK PAIN-HEADACHE Speciality: Acuity: 3 Enc Type: Emergency Med Service: Emergency Arrival: 07/12/2024 10:45:23 Discharge: 07/12/2024 11:04:00 LOS: 000 00:19 Checkin: 07/12/2024 10:45:23 Checkout: 07/12/2024 11:04:00 Dispo Type: Left Without Being Seen EVENTS: Event Name Event Status Request Date/Time Start Date/Time Complete Date/Time Arrive Complete 07/12/2024 10:45:23 07/12/2024 10:45:23 07/12/2024 10:45:23 Document Home Meds Request 07/12/2024 10:45:23 Triage Complete 07/12/2024 10:45:23 07/12/2024 10:58:05 07/12/2024 10:58:05 Registration Complete 07/12/2024 10:50:36 07/12/2024 10:50:36 07/12/2024 10:50:36 Reg Complete Request 07/12/2024 10:50:36 Reg Bed Request Complete 07/12/2024 10:50:36 07/12/2024 10:50:36 07/12/2024 10:50:36 Pending Labs Request 07/12/2024 10:59:14 Lab Request 07/12/2024 10:59:14 Discharge Complete 07/12/2024 11:10:13 07/12/2024 11:10:13 07/12/2024 11:10:13 Transfer Complete 07/12/2024 11:10:13 07/12/2024 11:10:13 07/12/2024 11:10:13 AD[address]: [address] [facility] [id number] PHYS DOC NOTES: MEDICAL INFORMATION: Prescriptions Given: Medications to Continue with No Changes Other Medications acetaminophen (acetaminophen 325 mg Tab) 2 Tablets By Mouth every 4 hours as needed Pain/Fever. Refills: 0. albuterol (albuterol HFA 90 mcg/inh MDI) 2 Puffs Inhalation every 4 hours as needed for wheezing. Refills: 0. escitalopram (escitalopram 10 mg Tab) 1 Tablets By Mouth every day. Refills: 0. ferrous sulfate (ferrous sulfate 325 mg Tab) 1 Tablets By Mouth every day. Refills: 1. ibuprofen (ibuprofen 600 mg Tab) 1 Tablets By Mouth every 8 hours as needed Pain/Fever. Refills: 0. lidocaine topical (lidocaine Top 5% film Patch) 1 Patches Topical every day. apply 12 hours on and 12 hours off daily. Refills: 0. meclizine (meclizine 25 mg Tab) 1 Tablets By Mouth 3 times a day as needed for dizziness. Refills: 0. multivitamin with minerals (One A Day Women's Complete oral tablet) 1 Tablets By Mouth every day. Refills: 0. naproxen (Naprosyn 500 mg Tab) 1 Tablets By Mouth 2 times a day as needed for pain. Refills: 0. naproxen (Naprosyn 500 mg Tab) 1 Tablets By Mouth 2 times a day as needed for pain. Refills: 0. naproxen (naproxen 500 mg Tab) 1 Tablets By Mouth 2 times a day. Take one tab by mouth two times a day. Refills: 0. ondansetron (Zofran 4 mg Tab) 1 Tablets By Mouth every 6 hours as needed Nausea. Take one tab by mouth every six hours as needed for nausea. Refills: 0. ondansetron (Zofran ODT 4 mg Tab-Dis) 1 Tablets By Mouth every 8 hours as needed Nausea/Vomiting. Refills: 0. oxybutynin (oxybutynin 5 mg ER Tab) 1 Tablets By Mouth every day. Refills: 0. pantoprazole (Pantoprazole [address] Tab) 1 Tablets By Mouth every day. Refills: 4. polyethylene glycol 3350 (polyethylene glycol 3350 Oral Pwdr for Recon) 17 Gram By Mouth every day. dissolve in water before taking. Refills: 0. predniSONE (predniSONE 10 mg Tab) 1 Tablets By Mouth As Directed. Take 3 tabs by mouth daily x3 days, then 2 tabs daily x3 days, then 1 tab daily x3 days.. Refills: 0. promethazine (promethazine 25 mg Tab) 1 Tablets By Mouth every 6 hours as needed as needed for nausea/vomiting. Refills: 0. psyllium (Metamucil Unflavored Smooth Texture Sugar Free 3.4 g/5.4 g oral powder) 3.4 Gram By Mouth every day. daily- stop 2-3 days if diarrhea occurs. Refills: 1. sulfamethoxazole-trimethopr im (Bactrim D.S. 800 mg-160 mg Tab) 1 Tablets By Mouth 2 times a day. Refills: 0. tamsulosin (Flomax 0.4 mg Cap) 1 Capsules By Mouth every day. Refills: 0. tamsulosin (tamsulosin 0.4 mg Cap) 1 Capsules By Mouth every day. Refills: 0. PATIENT EDUCATION INFORMATION: Instructions: Follow up: DIAGNOSIS: Normal [facility] ED Patient Education Noteon 07-12-2024 ED Patient Education Note ED Patient Education Note Normal [facility] ED Patient Summaryon 024 ED Patient Summary ED Patient Summary [place] [id number] Patient Discharge Instructions Person Information Name: JANA CABALLERO Age: 53 Years Arrival Date: 07/12/2024 10:45:23 Discharge Diagnosis: Primary Care Physician: Brigitte Carpenter Provider Information Primary Provider: Advanced Asset Management Analyst:None The exam and treatment you received in the Emergency Department were for an urgent problem and are not intended as complete care. It is important that you follow up with a doctor, nurse practitioner, or physician?s accounting administrative assistant for ongoing care. If your symptoms become worse or you do not improve as expected and you are unable to reach your usual health care provider, you should return to the Emergency Department. We are available 24 hours a day. JANA CABALLERO has been given the following list of patient education materials, prescriptions and follow-up instructions: Follow-up Instructions: In the event that this physician does not participate in your insurance network, please consult with your insurance company to find a nearby participating provider. Patient Education Materials: A MESSAGE TO ALL PATIENTS REGARDING OPIOIDS PRESCRIPTION OPIOIDS: WHAT YOU NEED TO KNOW Prescription opioids can be used to help relieve [id number] pain and are often prescribed following a surgery or injury, or for certain health conditions. These medications can be an important part of the treatment but also come with serious risks. It is important to work with your healthcare provider to make sure you are getting the safest, most effective care. WHAT ARE THE RISKS AND SIDE EFFECTS OF OPIOID USE? Prescription opioids carry serious risks of addiction and overdose, especially with prolonged use. An opioid overdose, often marked by slowed breathing, can cause sudden . The use of prescription opioids can have a number of side effects as well, even when taken as directed: ? Tolerance?meaning you might need to take more of the medication for the same pain relief ? Physical dependence?meaning you have symptoms of withdrawal when a medication is stopped ? Increased sensitivity to pain ? Constipation ? Nausea, vomiting, and dry mouth ? Sleepiness and dizziness ? Confusion ? Depression ? Low levels of testosterone that can result in lower sex drive, energy, and strength ? Itching and sweating RISKS ARE GREATER WITH: ? History of drug misuse, substance use disorder, or overdose ? Mental health conditions (such as depression or anxiety) ? Sleep apnea ? Older age (65 years and older) ? Avoid alcohol while taking prescription opioids. Also, unless specifically advised by your health care provider, medications to avoid include: ? Benzodiazepines (such as Xanax or Valium) ? Muscle relaxants (such as Soma or Flexeril) ? Hypnotics (such as Ambien or Lunesta) ? Other prescription opioids KNOW YOUR OPTIONS Talk to your health care provider about ways to manage your pain that don?t involve prescription opioids. Some of these options may actually work better and have fewer risks and side effects. Options may include: ? Pain relievers such as acetaminophen, ibuprofen, and naproxen ? Some medication that are also used for depression or seizures ? Physical therapy and exercise ? Cognitive behavioral therapy, a psychological, goal-directed approach, in which patients learn how to modify physical, behavioral, and emotional triggers of pain and stress. IF YOU ARE PRESCRIBED OPIOIDS FOR PAIN: ? Never take opioids in greater amounts or more often than prescribed. ? Follow up with your primary health care provider. o Work together to create a plan on how to manage your pain. o Talk about ways to help manage your pain that don?t involve prescription opioids. o Talk about any and all concerns and side effects. ? Help prevent misuse and abuse o Never sell or share prescription opioids. o Never use another person?s prescription opioids. ? Store prescription opioids in a secure place and out of reach of others (this may include visitors, children, friends, and family). ? Safely dispose of unused prescription opioids: Find your community drug take-back program or your pharmacy mail-back program, or flush them down the toilet, following guidance from the Food and Drug Administration (www.fda.gov/Drugs/Resource sForYou). ? Visit www.cdc.gov/drugoverdose to learn about the risks of opioids abuse and overdose. ? If you believe you may be struggling with addiction, tell your health neonatal critical care nurse and ask for guidance or call SAMHSA?S National Helpline at 1-411-569-HELP. v Source: US Department of Health and Human Services/Center for Disease Control & Prevention [facility] Medications Given: Medication Dose Route No medications found. Me (more content not included)... Normal [facility] Provider Letteron 06-19-2024 Provider Letter Provider Letter June 19, [address] [place] [address] [place] [address] : 1970 Dear Jana, We have been trying to reach you with no success. It is important that you return our call upon receiving this letter. Also, at the time of your call, please provide us with your current information. Thank you for your prompt attention to this matter. Sincerely, [facility] [address] [place] [address], [place] [address] [facility] ED Note-Physicianon 06-09-20 ED Note-Physician ED Note-Physician Basic Information Time Seen: Wendy BRIONES, Delia Baires 06/08/2024 19:41 Chief Complaint Sciatica (L) sided buttock with radiation to hip for past 3 days. Described as pulling. History of Present Illness Patient is a 53-year-old female with a history of smoking, GERD, cervical cancer, paresthesia who presents to the ED with left lower back pain radiating into her left lower extremity that began 3 days ago. Patient describes the pain as radiating down the posterior aspect of her left leg. Patient notes that she has a history of lower extremity paresthesia following radiation from cervical cancer. She denies any new numbness or tingling, saddle anesthesia, changes in urination, or loss of bowel control. Review of Systems A 10 point review of systems is negative except as noted above. Medical and Surgical History: Reviewed and noted Social history: Lives at home Family History: Reviewed. Tobacco: Current use Physical Exam Vitals & Measurements T: 36.6 ?C(Oral) HR: 67(Peripheral) RR: 16 BP: 116/73 SpO2: 99% HT: 167.6 cm WT: 98.0 kg BMI: 34.89 General: The patient appears well and in no apparent distress. Patient is resting comfortably on cart. Skin: Warm, dry, no pallor noted. Head: Normocephalic, atraumatic Neck: No JVD Eye: PERRLA, EOMI ENT: Moist mucus membranes Cardiovascular: Regular rate normal peripheral perfusion Respiratory: No respiratory distress no accessory muscle use no obvious audible wheezing Chest Wall: no deformity Musculoskeletal: normal ROM, no deformity, no swelling, no focal or paraspinal tenderness to palpation, 5/5 strength of the upper and lower extremities bilaterally, neurovascularly intact Neurological: A&O moves all extremities equal strength and symmetry Psychiatric: Cooperative and appropriate Medical Decision Making Patient is a 53-year-old female with a history of smoking, GERD, cervical cancer, paresthesia who presents to the ED with left lower back pain radiating into her left lower extremity that began 3 days ago. Patient is hemodynamically stable and afebrile. Physical exam is unremarkable without tenderness to palpation of the back. Patient is being given Toradol and Kenalog while in the ED. Patient was able to ambulate. She is being given a prescription for prednisone taper along with lidocaine patch. Patient was educated on the potential adverse effect of hyperglycemia with the prednisone. She will follow-up with Dr. Mendez if symptoms do not improve in the next 2 to 3 days. She was advised to return to ED with any new or worsening symptoms. Patient is agreeable with the plan and all questions were answered. Assessment/Plan Acute low back pain with left-sided sciatica (M54.42: Lumbago with sciatica, left side) Orders: ketorolac, 30 mg = 1 mL, Injection, IntraMuscular, Once, Stop date 06/08/24 19:59:00 EDT, STAT, Start date 06/08/24 19:59:00 EDT, 06/08/24 19:59:00 EDT lidocaine topical, 1 patch(es), Topical, Daily, 7 patch(es), Refill(s) 0, apply 12 hours on and 12 hours off daily, [email or web address] #[id number], 167.6, cm, 06/08/24 19:40:00 EDT, Height/Length Dosing, 98, kg, 06/08/24 19:40:00 EDT, Weight Dosing predniSONE, 10 mg = 1 tab(s), Oral, As Directed, Take 3 tabs by mouth daily x3 days, then 2 tabs daily x3 days, then 1 tab daily x3 days., # 18 tab(s), Refills(s) 0, Pharmacy: [email or web address] #[id number], 167.6, cm, 06/08/24 19:40:00 EDT, Height/Length Dosing, 98... triamcinolone, 40 mg = 1 mL, Susp-Inj, IntraMuscular, Once, Stop date 06/08/24 19:59:00 EDT, STAT, Start date 06/08/24 19:59:00 EDT, 06/08/24 19:59:00 EDT Medications Administered Given Kenalog 40 mg Injection, 40 mg, IntraMuscular ketorolac 30 mg/mL Inj 1 mL, 30 mg, IntraMuscular Disposition Plan Patient Discharge Condition stable Discharge Disposition home Discharge Prescription List Prescriptions lidocaine Top 5% film Patch, 1 patch(es), Topical, Daily predniSONE 10 mg Tab, 10 mg= 1 tab(s), Oral, As Directed Follow-up With When Contact Information Mahendra Vanessa In 3 days 06/11/2024 EDT [address] [facility], [address] [place] [address]- [phone] Business (1) Additional Instructions: Call to schedule a follow-up appointment with Dr. Rendon if symptoms do not improve in the next 2 to 3 days. Take the prednisone as prescribed. Monitor your blood sugar, if you notice an increase in your sugar from the prednisone stop taking the prednisone. Use lidocaine patches as needed. Return to the ED with any worsening symptoms Brigitte Garcia In 3 days [address] [facility] [address] [place] [phone] Business (1) Additional Instructions: Patient Education Back Exercises, Pobb-im-Zgsz Attestation Patient seen and evaluated by the physician accounting administrative assistant. Attending physician was present in the emergency department and supervised care. This visit was performed by both the physician and an APC. I performed all aspects of the MDM as documented. This report wa (more content not included)... Normal [facility] Comment on above: Result Comment: Elec tronically Signed By: Delia Nguyen PA-C\.br\Date and Time Signed: 06/09/24 00:44 EDT\.br\Electronically Co-Signed By: Ralph Platt DO\.br\Date and Time Co-Signed: 06/09/24 02:15 EDT ED Clinical Summaryon 2023 ED Clinical Summary ED Clinical Summary [address] [address] ED Clinical Summary Person Information Name: JANA CABALLERO [place] Age: 53 Years : 1970 Sex: Female Language: Syrian PCP: Brigitte Carpenter Marital Status: Phone: [phone] Visit Id: Visit Reason: Hip pain-swelling; Buttock [id number]; LT HIP ,LEG PAIN Speciality: Acuity: 4 Enc Type: Emergency Med Service: Emergency Arrival: 06/08/2024 19:31:38 Discharge: 06/08/2024 20:17:09 LOS: 000 00:46 Checkin: 06/08/2024 19:31:38 Checkout: 06/08/2024 20:17:09 Dispo Type: Home (Routine DC) EVENTS: Event Name Event Status Request Date/Time Start Date/Time Complete Date/Time Arrive Complete 06/08/2024 19:31:38 06/08/2024 19:31:38 06/08/2024 19:31:38 Document Home Meds Request 06/08/2024 19:31:38 Triage Complete 06/08/2024 19:31:38 06/08/2024 19:39:59 06/08/2024 19:39:59 Registration Complete 06/08/2024 19:35:26 06/08/2024 19:35:26 06/08/2024 19:35:26 Reg Complete Request 06/08/2024 19:35:26 Reg Bed Request Complete 06/08/2024 19:35:26 06/08/2024 19:35:26 06/08/2024 19:35:26 Bed Assign Complete 06/08/2024 19:40:44 06/08/2024 19:40:44 06/08/2024 19:40:44 Dr Exam Complete 06/08/2024 19:40:44 06/08/2024 19:41:40 06/08/2024 19:41:40 RN Exam Request 06/08/2024 19:40:44 Registration Request 06/08/2024 19:41:40 Dr Exam Complete 06/08/2024 19:42:00 06/08/2024 19:42:00 06/08/2024 19:42:00 Meds Admin Complete 06/08/2024 19:59:25 06/08/2024 20:11:06 Discharge Complete 06/08/2024 20:01:22 06/08/2024 20:17:15 06/08/2024 20:17:15 Transfer Complete 06/08/2024 20:17:15 06/08/2024 20:17:15 06/08/2024 20:17:15 ADDRESS: [address] [facility] [phone] PHYS DOC NOTES: MEDICAL INFORMATION: Prescriptions Given: New Medications [facility] #[id number], [address] [place], [place] [id number], [phone] lidocaine topical (lidocaine Top 5% film Patch) 1 Patches Topical every day. apply 12 hours on and 12 hours off daily. Refills: 0. predniSONE (predniSONE 10 mg Tab) 1 Tablets By Mouth As Directed. Take 3 tabs by mouth daily x3 days, then 2 tabs daily x3 days, then 1 tab daily x3 days.. Refills: 0. Medications to Continue with No Changes Other Medications acetaminophen (acetaminophen 325 mg Tab) 2 Tablets By Mouth every 4 hours as needed Pain/Fever. Refills: 0. albuterol (albuterol HFA 90 mcg/inh MDI) 2 Puffs Inhalation every 4 hours as needed for wheezing. Refills: 0. escitalopram (escitalopram 10 mg Tab) 1 Tablets By Mouth every day. Refills: 0. ferrous sulfate (ferrous sulfate 325 mg Tab) 1 Tablets By Mouth every day. Refills: 1. ibuprofen (ibuprofen 600 mg Tab) 1 Tablets By Mouth every 8 hours as needed Pain/Fever. Refills: 0. meclizine (meclizine 25 mg Tab) 1 Tablets By Mouth 3 times a day as needed for dizziness. Refills: 0. multivitamin with minerals (One A Day Women's Complete oral tablet) 1 Tablets By Mouth every day. Refills: 0. naproxen (Naprosyn 500 mg Tab) 1 Tablets By Mouth 2 times a day as needed for pain. Refills: 0. naproxen (Naprosyn 500 mg Tab) 1 Tablets By Mouth 2 times a day as needed for pain. Refills: 0. naproxen (naproxen 500 mg Tab) 1 Tablets By Mouth 2 times a day. Take one tab by mouth two times a day. Refills: 0. ondansetron (Zofran 4 mg Tab) 1 Tablets By Mouth every 6 hours as needed Nausea. Take one tab by mouth every six hours as needed for nausea. Refills: 0. ondansetron (Zofran ODT 4 mg Tab-Dis) 1 Tablets By Mouth every 8 hours as needed Nausea/Vomiting. Refills: 0. oxybutynin (oxybutynin 5 mg ER Tab) 1 Tablets By Mouth every day. Refills: 0. pantoprazole (Pantoprazole [address] Tab) 1 Tablets By Mouth every day. Refills: 4. polyethylene glycol 3350 (polyethylene glycol 3350 Oral Pwdr for Recon) 17 Gram By Mouth every day. dissolve in water before taking. Refills: 0. promethazine (promethazine 25 mg Tab) 1 Tablets By Mouth every 6 hours as needed as needed for nausea/vomiting. Refills: 0. psyllium (Metamucil Unflavored Smooth Texture Sugar Free 3.4 g/5.4 g oral powder) 3.4 Gram By Mouth every day. daily- stop 2-3 days if diarrhea occurs. Refills: 1. sulfamethoxazole-trimethopr im (Bactrim D.S. 800 mg-160 mg Tab) 1 Tablets By Mouth 2 times a day. Refills: 0. tamsulosin (Flomax 0.4 mg Cap) 1 Capsules By Mouth every day. Refills: 0. tamsulosin (tamsulosin 0.4 mg Cap) 1 Capsules By Mouth every day. Refills: 0. PATIENT EDUCATION INFORMATION: Instructions: Back Exercises, [id number] Follow up: With: Address: When: Mahendra Mendez [address] [facility], [address] [place] [phone] Independent IP (1[employer] In 3 days 06/11/2024 Comments: Call to schedule a follow-up appointment with Review if symptoms do not improve in the next 2 to 3 days. Take the prednisone as prescribed. Monitor your blood sugar, if you notice an increase in your sugar from the prednisone stop taking the prednisone. Use (more content not included)... Normal [facility] ED Patient Summaryon 024 ED Patient Summary ED Patient Summary [address] [address] Patient Discharge Instructions Person Information Name: JANA CABALLERO Age: 53 Years Arrival Date: 06/08/2024 19:31:38 Discharge Diagnosis: Acute low back pain with left-sided sciatica Primary Care Physician: Brigitte Carpenter Provider Information Primary Provider: Ralph Platt DO Advanced Asset Management Analyst:Delia Nguyen PA-C The exam and treatment you received in the Emergency Department were for an urgent problem and are not intended as complete care. It is important that you follow up with a doctor, nurse practitioner, or physician?s accounting administrative assistant for ongoing care. If your symptoms become worse or you do not improve as expected and you are unable to reach your usual health care provider, you should return to the Emergency Department. We are available 24 hours a day. JANA CABALLERO has been given the following list of patient education materials, prescriptions and follow-up instructions: Follow-up Instructions: With: Address: When: Mahendra Mendez [address] [facility], [address] [place] [phone] Independent IP (1) In 3 days 06/11/2024 Comments: Call to schedule a follow-up appointment with Dr. Rendon if symptoms do not improve in the next 2 to 3 days. Take the prednisone as prescribed. Monitor your blood sugar, if you notice an increase in your sugar from the prednisone stop taking the prednisone. Use lidocaine patches as needed. Return to the ED with any worsening symptoms With: Address: When: Brigitte Garcia [address] [facility], [address], [address] [address] Business (1) In 3 days In the event that this physician does not participate in your insurance network, please consult with your insurance company to find a nearby participating provider. Patient Education Materials: Back Exercises, Tixe-ek-Ikwg A MESSAGE TO ALL PATIENTS REGARDING OPIOIDS PRESCRIPTION OPIOIDS: WHAT YOU NEED TO KNOW Prescription opioids can be used to help relieve jygkdrwm-uj-zemnhc pain and are often prescribed following a surgery or injury, or for certain health conditions. These medications can be an important part of the treatment but also come with serious risks. It is important to work with your healthcare provider to make sure you are getting the safest, most effective care. WHAT ARE THE RISKS AND SIDE EFFECTS OF OPIOID USE? Prescription opioids carry serious risks of addiction and overdose, especially with prolonged use. An opioid overdose, often marked by slowed breathing, can cause sudden . The use of prescription opioids can have a number of side effects as well, even when taken as directed: ? Tolerance?meaning you might need to take more of the medication for the same pain relief ? Physical dependence?meaning you have symptoms of withdrawal when a medication is stopped ? Increased sensitivity to pain ? Constipation ? Nausea, vomiting, and dry mouth ? Sleepiness and dizziness ? Confusion ? Depression ? Low levels of testosterone that can result in lower sex drive, energy, and strength ? Itching and sweating RISKS ARE GREATER WITH: ? History of drug misuse, substance use disorder, or overdose ? Mental health conditions (such as depression or anxiety) ? Sleep apnea ? Older age (65 years and older) ? Avoid alcohol while taking prescription opioids. Also, unless specifically advised by your health care provider, medications to avoid include: ? Benzodiazepines (such as Xanax or Valium) ? Muscle relaxants (such as Soma or Flexeril) ? Hypnotics (such as Ambien or Lunesta) ? Other prescription opioids KNOW YOUR OPTIONS Talk to your health care provider about ways to manage your pain that don?t involve prescription opioids. Some of these options may actually work better and have fewer risks and side effects. Options may include: ? Pain relievers such as acetaminophen, ibuprofen, and naproxen ? Some medication that are also used for depression or seizures ? Physical therapy and exercise ? Cognitive behavioral therapy, a psychological, goal-directed approach, in which patients learn how to modify physical, behavioral, and emotional triggers of pain and stress. IF YOU ARE PRESCRIBED OPIOIDS FOR PAIN: ? Never take opioids in greater amounts or more often than prescribed. ? Follow up with your primary health care provider. o Work together to create a plan on how to manage your pain. o Talk about ways to help manage your pain that don?t involve prescription opioids. o Talk about any and all concerns and side effects. ? Help prevent misuse and abuse o Never sell or share prescription opioids. o Never use another person?s prescription opioids. ? Store prescription opioids in a secure place and out of reach of others (this may include visitors, children, (more content not included)... Normal [facility] CT Abdomen/Pelvis w/ Contras ton 06-04-2024 CT Abdomen/Pelvis w/ Contrast Exam Date/Time: 06/03/2024 15:10 EDT Reason for Exam: Nausea with vomiting Report IMPRESSION: NO ACUTE ABDOMINOPELVIC PROCESS. RIGHT RENAL SUBCAPSULAR HEMATOMA DOES NOT APPEAR SIGNIFICANTLY CHANGED. NONOBSTRUCTING RIGHT RENAL CALCULI. EXAM: CT Abdomen/Pelvis w/ Contrast History: Nausea. Vomiting. Technique: Multiple contiguous axial images were obtained of the abdomen and pelvis from the level of the lung bases through the ischial tuberosities with contrast. Multiplanar reformats were obtained. Delayed images were obtained. Unless otherwise stated, incidental findings identified in this report do not require routine follow-up imaging. Comparison: CT abdomen pelvis 03/09/2024 Findings: Bilateral lung base atelectasis. The liver, gallbladder, spleen, stomach, pancreas, and adrenal glands are within normal limits. The kidneys enhance uniformly. Chronic right-sided subcapsular hematoma does not appear significantly changed. Multiple tiny nonobstructing right renal calculi again identified. No left-sided renal calculi. No hydronephrosis. Urinary bladder is well distended. Abdominal aorta is nonaneurysmal. No retroperitoneal or abdominal/pelvic lymphadenopathy. No small bowel obstruction. Atherosclerotic calcifications abdominal aorta. No overt colonic mass or pericolonic inflammation. Appendix is within normal limits. No free fluid or free air. Fat-containing ventral abdominal wall hernia superior to the umbilicus measures approximately 4 cm in AP dimension by 8 cm in transverse dimension by 7 cm in craniocaudal dimension with a neck measuring approximately 4.2 cm in diameter. Tiny fat-containing periumbilical hernia. No acute osseous abnormality. Degenerative changes of the spine. Report All CT scans at this facility use dose modulation, iterative reconstruction, and/or weight based dosing when appropriate to reduce radiation dose to as low as reasonably achievable. Ordering Provider: Kaitlynn Davis FINAL REPORT Dictated: 06/04/2024 8:48 am Rangel Rico DO Signed (Electronic Signature): 06/04/2024 8:48 am Signed by: Rangel Rico DO Transcribed by: JG Technologist: CHAS Technical Comments GFR (mL/min/1/73m2) 103 Contrast: Isovue 300 Contrast amount in ml's: 100 Rectal Contrast Given? No Oral contrast amount in ml's: 0 Normal [facility] BMPon 06-03-2024 Anion gap [Moles/Vol] 9 mmol/L Normal 6-16 [facility] Comment on above: Performed By: #### 2 [id number] #### [facility] [address] [place] [address] Calcium [Mass/Vol] 9.2 mg/dL Normal 8.9-11.1 [facility] Comment on above: Performed By: #### 2 [id number] #### [facility] [address] [place] [address] Chloride [Moles/Vol] 106 mmol/L Normal 101-111 [facility] Comment on above: Performed By: #### 2 [id number] #### [facility] [address] [place] [address] CO2 [Moles/Vol] 29 mmol/L Normal 21-31 [facility] Comment on above: Performed By: #### 2 [id number] #### [facility] [address] [place] [address] Creatinine [Mass/Vol] 0.7 mg/dL Normal 0.5-1.3 [facility] Comment on above: Performed By: #### 2 [id number] #### [facility] [address] [place] [address] Glucose [Mass/Vol] 92 mg/dL Normal 55-199 [facility] Comment on above: Performed By: #### 2 [id number] #### [facility] [address] [place] [address] Potassium [Moles/Vol] 4.3 mmol/L Normal 3.5-5.3 [facility] Comment on above: Performed By: #### 2 [id number] #### [facility] [address] [place] [address] Sodium [Moles/Vol] 140 mmol/L Normal 135-145 [facility] Comment on above: Performed By: #### 2 [id number] #### [facility] [address] [place] [address] Urea nitrogen [Mass/Vol] 15 mg/dL Normal 5-21 [facility] Comment on above: Performed By: #### 2 [id number] #### [facility] [address] [place] [address] Urea nitrogen/Creatinine [Mass ratio] 21 No Units High 10-20 [facility] Comment on above: Performed By: #### 2 [id number] #### [facility] [address] [place] [address] BNPon 06-03-2024 Natriuretic peptide B (Bld) [Mass/Vol] 49 pg/mL Normal 5-80 [facility] Comment on above: Performed By: #### 1 [id number] #### [facility] [address] [place] [address] CBC w/ Auto Diffon 4 Basophils/100 WBC (Bld) 1.6 % Normal 0.0-2.0 [facility] Comment on above: Performed By: #### 2 [id number] #### [facility] [address] [place] [address] Basophils/Leukocytes Auto (Bld) [Pure # fraction] 0.1 E9/L Normal 0.0-0.2 [facility] Comment on above: Performed By: #### 2 [id number] #### [facility] [address] [place] [address] Eosinophils (Bld) [#/Vol] 0.4 E9/L Normal 0.0-0.5 [facility] Comment on above: Performed By: #### 2 [id number] #### [facility] [address] [place] [address] Eosinophils/100 WBC (Bld) 7.9 % Normal 0.0-8.0 [facility] Comment on above: Performed By: #### 2 [id number] #### [facility] [address] [place] [address] Erythrocyte distribution width (RBC) [Ratio] 15.9 % High 10.9-14.2 [facility] Comment on above: Performed By: #### 2 [id number] #### [facility] [address] [place] [address] Hematocrit (Bld) [Volume fraction] 33.0 % Low 34.0-46.0 [facility] Comment on above: Performed By: #### 2 [id number] #### [facility] [address] [place] [address] Hemoglobin (Bld) [Mass/Vol] 11.3 g/dL Low 12.0-16.0 [facility] Comment on above: Performed By: #### 2 [id number] #### [facility] [address] [place] [address] Lymphocytes (Bld) [#/Vol] 1.3 E9/L Normal 1.0-4.0 [facility] Comment on above: Performed By: #### 2 [id number] #### [facility] [address] [place] [address] Lymphocytes/100 WBC (Bld) 28.7 % Normal 14.0-50.0 [facility] Comment on above: Performed By: #### 2 [id number] #### [facility] [address] [place] [address] MCH (RBC) [Entitic mass] 27.4 pg Normal 27.0-34.0 [facility] Comment on above: Performed By: #### 2 [id number] #### [facility] [address] [place] [address] MCHC (RBC) [Mass/Vol] 34.2 g/dL Normal 31.4-36.0 [facility] Comment on above: Performed By: #### 2 [id number] #### [facility] [address] [place] [address] MCV (RBC) [Entitic vol] 80.0 fL Normal 80.0-100.0 [facility] Comment on above: Performed By: #### 2 [id number] #### [facility] [address] [place] [address] Monocytes (Bld) [#/Vol] 0.4 E9/L Normal 0.2-1.0 [facility] Comment on above: Performed By: #### 2 [id number] #### [facility] [address] [place] [address] Neutrophils (Bld) [#/Vol] 2.5 E9/L Normal 2.0-7.5 [facility] Comment on above: Performed By: #### 2 [id number] #### [facility] [address] [place] [address] Neutrophils/100 WBC (Bld) 53.8 % Normal 36.0-75.0 [facility] Comment on above: Performed By: #### 2 [id number] #### [facility] [address] [place] [address] Platelet 217.0 E9/L Normal 150.0-500.0 [facility] Comment on above: Performed By: #### 2 [id number] #### [facility] [address] [place] [address] Platelet mean volume (Bld) [Entitic vol] 8.3 fL Normal 6.4-10.8 [facility] Comment on above: Performed By: #### 2 [id number] #### [facility] [address] [place] [address] RBC (Bld) [#/Vol] 4.1 E12/L Low 4.3-5.9 [facility] Comment on above: Performed By: #### 2 [id number] #### [facility] [address] [place] [address] WBC corrected for nucl RBC Auto (Bld) [#/Vol] 4.7 E9/L Normal 4.0-11.0 [facility] Comment on above: Performed By: #### 2 [id number] #### [facility] [address] [place] [address] CHEMISTRYOrdered By: SYSTEM SYSTEM on 06-03-2024 Albumin [Mass/Vol] 3.9 g/dL Normal 3.3 - 5.0 gm/dL Remisol Chem Albumin/Globulin [Mass ratio] 1.4 {ratio} Normal 1.1 - 2.2 Remisol Chem ALP [Catalytic activity/Vol] 77 [iU]/d Normal 21 - 98 Int._Unit/L Remisol Chem ALT No additional P-5'-P [Catalytic activity/Vol] 13 [iU]/d Normal 6 - 46 Int._Unit/L Remisol Chem Anion gap [Moles/Vol] 9 mmol/L Normal 6 - 16 mEq/L Remisol Chem AST [Catalytic activity/Vol] 15 [iU]/d Normal 5 - 43 Int._Unit/L Remisol Chem Bilirubin [Mass/Vol] 0.3 mg/dL Normal 0.0 - 1 .1 mg/dL Remisol Chem Bilirubin.direct [Mass/Vol] 0.0 mg/dL Normal 0.0 - 0.4 mg/dL Remisol Chem Bilirubin.indirect [Mass or moles/Vol] 0.3 mg/dL Normal 0.1 - 0.9 mg/dL Remisol Chem Calcium [Mass/Vol] 9.2 mg/dL Normal 8.9 - 11. 1 mg/dL Remisol Chem Chloride [Moles/Vol] 106 mmol/L Normal 101 - 1 11 mmol/L Remisol Chem CO2 [Moles/Vol] 29 mmol/L Normal 21 - 31 mmol/L Remisol Chem Creatinine [Mass/Vol] 0.7 mg/dL Normal 0.5 - 1.3 mg/dL Remisol Chem eGFR 103 mL/min/1.73 m2 Normal >=59mL/mi n/ 1.73 m2 Remisol Chem Globulin (S) [Mass/Vol] 2.8 g/dL Normal 1.4 - 4.0 gm/dL Remisol Chem Glucose [Mass/Vol] 92 mg/dL Normal 55 - 199 mg/dL Remisol Chem Lactic Acid Lvl 0.5 mmol/L Normal 0.5 - 2.2 mmol/L Remisol Chem Lipase [Catalytic activity/Vol] 119 U/L High 13 - 58 unit/L Remisol Chem Magnesium [Mass/Vol] 2.0 mg/dL Normal 1.3 - 2 .4 mg/dL Remisol Chem Potassium [Moles/Vol] 4.3 mmol/L Normal 3.5 - 5.3 mmol/L Remisol Chem Protein [Mass/Vol] 6.7 g/dL Normal 6.0 - 7.8 gm/dL Remisol Chem Sodium [Moles/Vol] 140 mmol/L Normal 135 - 145 mmol/L Remisol Chem Troponin HS 4.10 pg/mL Low 10.10 - 27.10 pg/mL Remisol Chem Comment on above: Interpretive Data: T he 95% CI (Confidence Interval) PPV (Positive Predictive Value) for myocardial infarction in females is 38 pg/mL, in males 51 pg/mL. The results should be used in conjunction with clinical conditions of myocardial infarction. (Access High Sensitivity Troponin I Instructions For Use, Cely Parisa, April 2018) Urea nitrogen [Mass/Vol] 15 mg/dL Normal 5 - 21 mg/dL Remisol Chem Urea nitrogen/Creatinine [Mass ratio] 21 mg/mg High 10 - 20 Remisol Chem CHEMISTRYOrdered By: Radha Menjivar on 06-03-2024 Natriuretic peptide B (Bld) [Mass/Vol] 49 pg/mL Normal 5 - 80 pg/mL [facility] COAGULATIONOrdered By: Cade Menjivar on 06-03-2024 aPTT Coag (PPP) [Time] 35.4 s Normal 25.1 - 36.5 second(s) [facility] Comment on above: Interpretive Data: P arameter 15 days - 4 weeks 1 - 5 months 6 - 11 months 1 - 5 years 6 - 10 years 11 - 17 years PTT Mean: 35.4 (27.6-45.6) Mean: 33.5 (24.8-40.7) Mean: 32.4 (25.1-40.7) Mean: 31.6 (24.0-39.2) Mean: 31.6 (26.9-38.7) Mean: 31.0 (24.6-38.4) Pediatric Reference ranges were obtained from a study by Antoni Smart et al. prepared from 1437 samples obtained at 7 different centers using the same coagulation reagent and instrumentation as [facility]. Currently there are no coagulation studies available worldwide for children to 14 days, and no normal ranges. Heparin therapeutic range (represented by Anti-Factor Xa activity of 0.2 - 0.4 U/mL) corresponds to PTT of 56.6 - 109.0 sec. INR Coag (PPP) [Relative time] 1.04 {INR} Invalid Interpretation Code [facility] Comment on above: Interpretive Data: I NR results are specifically intended to assess patients stabilized on long-term Anticoagulation therapy suggested INR s Less Intensive Anticoagulation 2.0 3.0 Conventional Range 3.0 4.5 PT Coag (PPP) [Time] 11.7 s Normal 9.4 - 1 2.5 second(s) [facility] Comment on above: Interpretive Data: 1 5 days - 4 weeks 1 - 5 months 6 -11 months 1-5 years 6-10 years 11 -17 years Mean: 11.2 (9.5-12.6) Mean: 11.0 (9.7-12.8) Mean: 11.0 (9.8-13.0) Mean: 11.3 (9.9-13.4) Mean: 11.7 (10.0-14.6) Mean: 11.8 (10.0 - 14.1) Pediatric Reference ranges were obtained from a study by rivas Rosas al. prepared from 1437 samples obtained at 7 different centers using the same coagulation reagent and instrumentation as [facility]. Currently there are no coagulation studies available worldwide for children to 14 days, and no normal ranges. ED Clinical Summaryon 2023 ED Clinical Summary ED Clinical Summary [place] [address] ED Clinical Summary Person Information Name: JNAA CABALLERO [facility] Age: 53 Years : 1970 Sex: Female Language: Syrian PCP: Brigitte Carpenter Marital Status: Phone: [phone] Visit Id: Visit Reason: Headache; Diarrhea; Nausea; FEET SWELLING, KNEE SWELLING, NAUSEA, HEADACHE Speciality: Acuity: 3 Enc Type: Emergency Med Service: Emergency Arrival: 06/03/2024 12:04:12 Discharge: 06/03/2024 19:21:31 LOS: 000 07:17 Checkin: 06/03/2024 12:04:12 Checkout: 06/03/2024 19:21:31 Dispo Type: Home (Routine DC) EVENTS: Event Name Event Status Request Date/Time Start Date/Time Complete Date/Time Arrive Complete 06/03/2024 12:04:12 06/03/2024 12:04:12 06/03/2024 12:04:12 Document Home Meds Request 06/03/2024 12:04:12 Triage Complete 06/03/2024 12:04:12 06/03/2024 12:11:52 06/03/2024 12:11:52 Registration Complete 06/03/2024 12:07:09 06/03/2024 12:07:09 06/03/2024 12:07:09 Reg Complete Request 06/03/2024 12:07:09 Reg Bed Request Complete 06/03/2024 12:07:09 06/03/2024 12:07:09 06/03/2024 12:07:09 Bed Assign Complete 06/03/2024 12:11:59 06/03/2024 12:11:59 06/03/2024 12:11:59 Dr Exam Complete 06/03/2024 12:11:59 06/03/2024 12:19:20 06/03/2024 12:19:20 RN Exam Complete 06/03/2024 12:11:59 06/03/2024 12:39:48 06/03/2024 12:39:48 Registration Request 06/03/2024 12:19:20 Dr Exam Complete 06/03/2024 12:20:08 06/03/2024 12:20:08 06/03/2024 12:20:08 NPO Request 06/03/2024 12:39:50 Pending Labs Complete 06/03/2024 12:39:50 06/03/2024 12:58:44 06/03/2024 13:48:01 Lab Complete 06/03/2024 12:39:50 06/03/2024 13:48:01 Meds Admin Complete 06/03/2024 12:39:50 06/03/2024 12:54:09 Patient Care Complete 06/03/2024 12:39:50 06/03/2024 13:00:11 Pending Labs Complete 06/03/2024 12:58:14 06/03/2024 12:58:14 06/03/2024 13:33:00 Lab Complete 06/03/2024 12:58:14 06/03/2024 12:58:14 06/03/2024 13:33:00 Meds Admin Request 06/03/2024 13:04:31 Pending Labs Request 06/03/2024 13:05:01 Pending Labs Complete 06/03/2024 13:24:05 06/03/2024 13:24:05 06/03/2024 13:24:05 Pending Labs Complete 06/03/2024 13:30:53 06/03/2024 14:11:14 Lab Complete 06/03/2024 13:30:53 06/03/2024 14:11:14 CT Complete 06/03/2024 14:38:47 06/03/2024 14:40:38 06/03/2024 15:10:15 Meds Admin Complete 06/03/2024 16:28:32 06/03/2024 16:40:17 Dr Exam Complete 06/03/2024 19:05:47 06/03/2024 19:05:47 06/03/2024 19:05:47 Meds Admin Complete 06/03/2024 19:13:21 06/03/2024 19:17:36 Discharge Complete 06/03/2024 19:18:12 06/03/2024 19:21:40 06/03/2024 19:21:40 Transfer Complete 06/03/2024 19:21:40 06/03/2024 19:21:40 06/03/2024 19:21:40 AD[address]: [address] [facility] [id number] PHYS DOC NOTES: MEDICAL INFORMATION: Prescriptions Given: New Medications [id number], [address] [place], [place] [id number], [phone] promethazine (promethazine 25 mg Tab) 1 Tablets By Mouth every 6 hours as needed as needed for nausea/vomiting. Refills: 0. Medications to Continue with No Changes Other Medications acetaminophen (acetaminophen 325 mg Tab) 2 Tablets By Mouth every 4 hours as needed Pain/Fever. Refills: 0. albuterol (albuterol HFA 90 mcg/inh MDI) 2 Puffs Inhalation every 4 hours as needed for wheezing. Refills: 0. escitalopram (escitalopram 10 mg Tab) 1 Tablets By Mouth every day. Refills: 0. ferrous sulfate (ferrous sulfate 325 mg Tab) 1 Tablets By Mouth every day. Refills: 1. ibuprofen (ibuprofen 600 mg Tab) 1 Tablets By Mouth every 8 hours as needed Pain/Fever. Refills: 0. meclizine (meclizine 25 mg Tab) 1 Tablets By Mouth 3 times a day as needed for dizziness. Refills: 0. multivitamin with minerals (One A Day Women's Complete oral tablet) 1 Tablets By Mouth every day. Refills: 0. naproxen (Naprosyn 500 mg Tab) 1 Tablets By Mouth 2 times a day as needed for pain. Refills: 0. naproxen (Naprosyn 500 mg Tab) 1 Tablets By Mouth 2 times a day as needed for pain. Refills: 0. naproxen (naproxen 500 mg Tab) 1 Tablets By Mouth 2 times a day. Take one tab by mouth two times a day. Refills: 0. ondansetron (Zofran 4 mg Tab) 1 Tablets By Mouth every 6 hours as needed Nausea. Take one tab by mouth every six hours as needed for nausea. Refills: 0. ondansetron (Zofran ODT 4 mg Tab-Dis) 1 Tablets By Mouth every 8 hours as needed Nausea/Vomiting. Refills: 0. oxybutynin (oxybutynin 5 mg ER Tab) 1 Tablets By Mouth every day. Refills: 0. pantoprazole (Pantoprazole [address] Tab) 1 Tablets By Mouth every day. Refills: 4. polyethylene glycol 3350 (polyethylene glycol 3350 Oral Pwdr for Recon) 17 Gram By Mouth every day. dissolve in water before taking. Refills: 0. psyllium (Metamucil Unflavored Smooth Texture Sugar Free 3.4 g/5.4 g oral powder) 3.4 Gram By Mouth every day. daily- stop 2-3 days if diarrhea occurs. Refills: 1. sulfamethoxazole-trimethopr im (Bactrim D.S. 800 mg-160 mg Tab) 1 Tablets By Mouth 2 times a day. Refills: 0. tamsulosin (Flomax 0.4 mg Cap) 1 Capsules By Mouth every day. (more content not included)... Normal [facility] ED Note-Physicianon 06-03-20 ED Note-Physician ED Note-Physician Basic Information Time Seen: Haim Alanis Dann Gates 06/03/2024 12:19 Chief Complaint c/o nausea, diarrhea, headache bilateral feet pain and swelling and left knee pain swelling that started last night. took ibuprofen and tylenol around 1115 with no relief. denies any known injury. History of Present Illness This patient presents emergency department chief complaint of nausea, diarrhea, bilateral feet pain. The patient also feels like her feet are swollen. She also feels like her left knee is swollen. The patient denies any fevers chills or sweats. She denies any chest pain or shortness of breath. She denies any constipation, melena, hematochezia. She denies any urinary burning frequency or urgency. Review of Systems Constitutional: Denies weight loss, fevers, chills, sweats, malaise Eyes: Denies visual changes, eye pain, double vision, scotomas, floaters ENT: Denies runny nose, epistaxis, sinus pain, ear pain, ringing in ears, tooth ache, sore throat, pain with swallowing Cardiovascular: Denies chest pain, shortness of breath, orthopnea, edema, palpitations, loss of consciousness, claudication. + Bilateral foot pain and swelling, left knee pain and swelling Respiratory: Denies cough, sputum production, wheezing, hemoptysis, shortness of breath, dyspnea on exertion Gastrointestinal: Denies abdominal pain, unintentional weight loss, difficulty swallowing, indigestion, bloating, cramping, loss of appetite, vomiting, constipation, hematochezia, melena. + Nausea, diarrhea Genitourinary: Denies any incontinence of urine, dysuria, hematuria, nocturia, polyuria, hesitancy, frequency, urgency, burning Musculoskeletal: Denies joint pain, morning stiffness, joint swelling, decreased range of motion, crepitus Integumentary: Denies any pruritus, rashes, lesions, wounds, petechiae Neurologic: Denies any changes in sight, smell, hearing, taste, seizures, paresthesia, numbness, weakness, balance disturbance. + Headache Psychiatric denies any depression, change in sleep patterns, anxiety, difficulty concentrating, paranoia, anhedonia, lack of energy, madelin Hematologic/lymphatic: Denies any purpura, petechiae, excessive bleeding, bruising Physical Exam Vitals & Measurements T: 36.8 ?C(Oral) HR: 71(Monitored) RR: 22 BP: 132/81 SpO2: 98% HT: 170 cm WT: 98.3 kg BMI: 34.01 Vital signs and nursing notes reviewed. General: Awake, alert, NAD. HEENT: Head is normocephalic, atraumatic. PERRL. EOMI. Sclerae are anicteric. External ears are normal. TMs are intact bilaterally. Canals are clear bilaterally. Nares are patent bilaterally. Oral mucosa is pink and moist. No lesions noted. Tongue protrudes in midline. Uvula rises with phonation. Neck is supple, no no palpable adenopathy. No JVD. Trachea is midline. Thorax: Symmetrical rise and fall Lungs: Clear to auscultation throughout all [place], no wheezes, no crackles Heart: Regular rate and rhythm. No murmur, gallop, or rub Abdomen: No tenderness on palpation. Bowel sounds are present active and normal. No organomegaly. No palpable masses. No CVA tenderness. Extremities: Motor sensory pulses intact x4 extremities. Trace lower extremity edema. Skin: No lesions, rashes, ulcerations. No bruising or petechiae. Color appropriate, warm and dry Neuro: No oriented x3, no focal neuro deficits Psych: Mood and affect are normal Medical Decision Making MEDICAL DECISION MAKING Number and Complexity of Problems Differential Diagnosis: Acute lower urinary tract infection, viral illness, gastroenteritis, viral enteritis, dehydration, electrolyte abnormality MDM Data External documents reviewed: Not applicable My EKG interpretation: Noted in chart if applicable My CT interpretation: Noted in chart if applicable My X-ray interpretation: Noted in chart if applicable My Ultrasound interpretation: Not applicable Decision rules/scores evaluated: Noted in chart if applicable Discussed with: Treatment and Disposition ED Course: Patient was interviewed and examined. The appropriate ER workup was initiated. Saline lock was established. Patient is given 1 L normal saline wide open IV fluid hydration. Patient is given promethazine 25 mg IV piggyback for nausea. With blood count 4.7, hemoglobin 11.3, hematocrit 33.0, platelet 217. Pro time 11.7, PTT 35.4, INR 1.04. Sodium 140, potassium 4.3, chloride 106, CO2 29, BUN of 15, creatinine 0.7, glucose 92, calcium 9.2. Remainder CMP unremarkable. Lipase elevated at 119. Lactic acid normal at 0.5. Magnesium normal at 2.0. 0-hour troponin normal at 4.10. BN peptide normal at 49. UA remarkable for trace protein, trace blood, 2 mg/dL urobilinogen. Rapid COVID negative. Results of CT scan of the abdomen pelvis are still pending. The patient continued to complain about headache and is given dose of cyclobenzaprine. I will endorse this case out to the attending ED physician, Dr Whitmore for final diagnosis and disposition. Shared decision making: Code status: No (more content not included)... Normal [facility] Comment on above: Result Comment: Elec tronically Signed By: Kaitlynn Davis PA-C\.br\Date and Time Signed: 06/03/24 16:50 EDT\.br\Electronically Co-Signed By: Haim Alanis, Dann Gates\.br\Date and Time Co-Signed: 06/03/24 19:23 EDT ED Patient Summaryon 024 ED Patient Summary ED Patient Summary [place] [address] Patient Discharge Instructions Person Information Name: JANA CABALLERO Age: 53 Years Arrival Date: 06/03/2024 12:04:12 Discharge Diagnosis: 1:Cephalgia; 2:Nausea Primary Care Physician: Brigitte Carpenter Provider Information Primary Provider: Dann Whitmore M.D. Advanced Asset Management Analyst:None The exam and treatment you received in the Emergency Department were for an urgent problem and are not intended as complete care. It is important that you follow up with a doctor, nurse practitioner, or physician?s accounting administrative assistant for ongoing care. If your symptoms become worse or you do not improve as expected and you are unable to reach your usual health care provider, you should return to the Emergency Department. We are available 24 hours a day. JANA CABALLERO has been given the following list of patient education materials, prescriptions and follow-up instructions: Follow-up Instructions: With: Address: When: Brigitte Jose [address], [address], [place] [id number] Business (1) In 3 days 06/06/2024 Comments: Return to the emergency room if your symptoms get worse or any new symptoms. In the event that this physician does not participate in your insurance network, please consult with your insurance company to find a nearby participating provider. Patient Education Materials: Nausea, Adult; General Headache Without Cause A MESSAGE TO ALL PATIENTS REGARDING OPIOIDS PRESCRIPTION OPIOIDS: WHAT YOU NEED TO KNOW Prescription opioids can be used to help relieve xbtpsdys-hn-iuznou pain and are often prescribed following a surgery or injury, or for certain health conditions. These medications can be an important part of the treatment but also come with serious risks. It is important to work with your healthcare provider to make sure you are getting the safest, most effective care. WHAT ARE THE RISKS AND SIDE EFFECTS OF OPIOID USE? Prescription opioids carry serious risks of addiction and overdose, especially with prolonged use. An opioid overdose, often marked by slowed breathing, can cause sudden . The use of prescription opioids can have a number of side effects as well, even when taken as directed: ? Tolerance?meaning you might need to take more of the medication for the same pain relief ? Physical dependence?meaning you have symptoms of withdrawal when a medication is stopped ? Increased sensitivity to pain ? Constipation ? Nausea, vomiting, and dry mouth ? Sleepiness and dizziness ? Confusion ? Depression ? Low levels of testosterone that can result in lower sex drive, energy, and strength ? Itching and sweating RISKS ARE GREATER WITH: ? History of drug misuse, substance use disorder, or overdose ? Mental health conditions (such as depression or anxiety) ? Sleep apnea ? Older age (65 years and older) ? Avoid alcohol while taking prescription opioids. Also, unless specifically advised by your health care provider, medications to avoid include: ? Benzodiazepines (such as Xanax or Valium) ? Muscle relaxants (such as Soma or Flexeril) ? Hypnotics (such as Ambien or Lunesta) ? Other prescription opioids KNOW YOUR OPTIONS Talk to your health care provider about ways to manage your pain that don?t involve prescription opioids. Some of these options may actually work better and have fewer risks and side effects. Options may include: ? Pain relievers such as acetaminophen, ibuprofen, and naproxen ? Some medication that are also used for depression or seizures ? Physical therapy and exercise ? Cognitive behavioral therapy, a psychological, goal-directed approach, in which patients learn how to modify physical, behavioral, and emotional triggers of pain and stress. IF YOU ARE PRESCRIBED OPIOIDS FOR PAIN: ? Never take opioids in greater amounts or more often than prescribed. ? Follow up with your primary health care provider. o Work together to create a plan on how to manage your pain. o Talk about ways to help manage your pain that don?t involve prescription opioids. o Talk about any and all concerns and side effects. ? Help prevent misuse and abuse o Never sell or share prescription opioids. o Never use another person?s prescription opioids. ? Store prescription opioids in a secure place and out of reach of others (this may include visitors, children, friends, and family). ? Safely dispose of unused prescription opioids: Find your community drug take-back program or your pharmacy mail-back program, or flush them down the toilet, following guidance from the Food and Drug Administration (www.fda.gov/Drugs/Resource sForYou). ? Visit www.cdc.gov/drugoverdose to learn about the risks of opioids abuse and overdose. ? If you believe you may be struggling w (more content not included)... Normal [facility] HEMATOLOGYOrdered By: SYSTEM SYSTEM on 06-03-2024 Basophils/100 WBC (Bld) 1.6 % Normal 0.0 - 2.0 % Remisol Heme Basophils/Leukocytes Auto (Bld) [Pure # fraction] 0.1 E9/L Normal 0.0 - 0.2 E9/L Remisol Heme Eosinophils (Bld) [#/Vol] 0.4 E9/L Normal 0.0 - 0.5 E9/L Remisol Heme Eosinophils/100 WBC (Bld) 7.9 % Normal 0.0 - 8.0 % Remisol Heme Erythrocyte distribution width (RBC) [Ratio] 15.9 % High 10.9 - 14.2 % Remisol Heme Hematocrit (Bld) [Volume fraction] 33.0 % Low 34.0 - 46.0 % Remisol Heme Hemoglobin (Bld) [Mass/Vol] 11.3 g/dL Low 12.0 - 16.0 gm/dL Remisol Heme Lymphocytes (Bld) [#/Vol] 1.3 E9/L Normal 1.0 - 4.0 E9/L Remisol Heme Lymphocytes/100 WBC (Bld) 28.7 % Normal 14.0 - 50.0 % Remisol Heme MCH (RBC) [Entitic mass] 27.4 pg Normal 27.0 - 34.0 pg Remisol Heme MCHC (RBC) [Mass/Vol] 34.2 g/dL Normal 31.4 - 36.0 gm/dL Remisol Heme MCV (RBC) [Entitic vol] 80.0 fL Normal 80.0 - 100.0 fL Remisol Heme Monocytes (Bld) [#/Vol] 0.4 E9/L Normal 0.2 - 1.0 E9/L Remisol Heme Monocytes/100 WBC (Bld) 8.0 % Normal 4.0 - 14.0 % Remisol Heme Neutrophils (Bld) [#/Vol] 2.5 E9/L Normal 2.0 - 7.5 E9/L Remisol Heme Neutrophils/100 WBC (Bld) 53.8 % Normal 36.0 - 75.0 % Remisol Heme Platelet 217.0 E9/L Normal 150.0 - 500.0 E9/L Remisol Heme Platelet mean volume (Bld) [Entitic vol] 8.3 fL Normal 6.4 - 10.8 fL Remisol Heme RBC (Bld) [#/Vol] 4.1 E12/L Low 4.3 - 5.9 E12/L Remisol Heme WBC corrected for nucl RBC Auto (Bld) [#/Vol] 4.7 E9/L Normal 4.0 - 11.0 E9/L Remisol Heme Hep Func Panelon 06-03-2024 Albumin [Mass/Vol] 3.9 g/dL Normal 3.3-5.0 [facility] Comment on above: Performed By: #### 2 [id number] #### [facility] [address] [place] [address] Albumin/Globulin (S) [Mass conc ratio] 1.4 Normal 1.1-2.2 [facility] Comment on above: Performed By: #### 2 [id number] #### [facility] [address] [place] [address] ALP [Catalytic activity/Vol] 77 Int._Unit/L Normal 21-98 [facility] Comment on above: Performed By: #### 2 [id number] #### [facility] [address] [place] [address] ALT No additional P-5'-P [Catalytic activity/Vol] 13 Int._Unit/L Normal 6-46 [facility] Comment on above: Performed By: #### 2 [id number] #### [facility] [address] [place] [address] AST [Catalytic activity/Vol] 15 Int._Unit/L Normal 5-43 [facility] Comment on above: Performed By: #### 2 [id number] #### [facility] [address] [place] [address] Bilirubin [Mass/Vol] 0.3 mg/dL Normal 0.0-1.1 [facility] Comment on above: Performed By: #### 2 [id number] #### [facility] [address] [place] [address] Bilirubin.direct [Mass/Vol] 0.0 mg/dL Normal 0.0-0.4 [facility] Comment on above: Performed By: #### 2 [id number] #### [facility] [address] [place] [address] Bilirubin.indirect [Mass or moles/Vol] 0.3 mg/dL Normal 0.1-0.9 [facility] Comment on above: Performed By: #### 2 [id number] #### [facility] [address] [place] [address] Globulin (S) [Mass/Vol] 2.8 g/dL Normal 1.4-4.0 [facility] Comment on above: Performed By: #### 2 [id number] #### [facility] [address] [place] [address] Protein [Mass/Vol] 6.7 g/dL Normal 6.0-7.8 [facility] Comment on above: Performed By: #### 2 [id number] #### [facility] [address] [place] [address] Lactic Acidon 06-03-2024 Lactic Acid Lvl 0.5 mmol/L Normal 0.5-2.2 [facility] Comment on above: Performed By: #### 2 [id number] #### [facility] [address] [place] [address] Lipase Levelon 06-03-2024 Lipase [Catalytic activity/Vol] 119 U/L High 13-58 [facility] Comment on above: Performed By: #### 2 [id number] #### [facility] [address] [place] [address] MICRO OTHER TESTSOrdered By: Radha Menjivar on 06-03-2024 Rapid COV Int NEG Ctl Pass (06/03/24 1:33 PM) Normal [facility] Man Sero Rapid COV Int POS Ctl Pass (06/03/24 1:33 PM) Normal [facility] Sero SARS-CoV+SARS-CoV-2 (COVID-19) Ag IA.rapid Ql (Resp) Not Detected 6 (06/03/24 1:33 PM) Normal Not Detected [facility]ero Comment on above: Interpretive Data: Oniel christy [employer] Veritor System for Rapid Detection of SARS-CoV-2 is a chromatographic digital immunoassay intended for the direct and qualitative detection of SARS-CoV-2 nucleocapsid antigens in nasal swabs from individuals who are suspected of COVID-19 by their healthcare provider within the first five days of the onset of symptoms. Negative results should be treated as presumptive, do not rule out SARS-CoV-2 infection and should not be used as the sole basis for treatment or patient management decisions, including infection control decisions. Negative results should be considered in the context of a patient s recent exposures, history and the presence of clinical signs and symptoms consistent with COVID-19, and confirmed with a molecular assay, if necessary, for patient management. For in vitro diagnostic use. In the [place], only for use under an Emergency Use Authorization. In the [place], this test has not been FDA cleared or approved; this test has been authorized by FDA under an EUA for use by authorized laboratories; use by laboratories certified under the CLIA, 42 U.S.C. 263a, that meet requirements to perform moderate, high, or waived complexity tests and at the Point of Care (POC), i.e., in patient care settings operating under a CLIA Certificate of Waiver, Certificate of Compliance, or Certificate of Accreditation. This test has been authorized only for the detection of proteins from SARS-CoV-2, not for any other viruses or pathogens; and, in the [place], this test is only authorized for the duration of the declaration that circumstances exist justifying the authorization of emergency use of in vitro diagnostics for detection and/or diagnosis of the virus that causes COVID-19 under Section 564(b)(1) of the Act, 21 U.S.C. 360bbb-3(b)(1), unless the authorization is terminated or revoked sooner. Magnesiumon 06-03-2024 Magnesium [Mass/Vol] 2.0 mg/dL Normal 1.3-2.4 [facility] Comment on above: Performed By: #### 2 [id number] #### [facility] [address] [place] [address] PT & PTTon 06-03-2024 aPTT Coag (PPP) [Time] 35.4 second(s) Normal 25.1-36.5 [facility] Comment on above: Result Comment: Para meter 15 days - 4 weeks 1 - 5 months 6 - 11 months 1 - 5 years 6 - 10 years 11 - 17 years PTT Mean: 35.4 (27.6-45.6) Mean: 33.5 (24.8-40.7) Mean: 32.4 (25.1-40.7) Mean: 31.6 (24.0-39.2) Mean: 31.6 (26.9-38.7) Mean: 31.0 (24.6-38.4) Pediatric Reference ranges were obtained from a study by Antoni Smart et al. prepared from 1437 samples obtained at 7 different centers using the same coagulation reagent and instrumentation as [facility]. Currently there are no coagulation studies available worldwide for children to 14 days, and no normal ranges. Heparin therapeutic range (represented by Anti-Factor Xa activity of 0.2 - 0.4 U/mL) corresponds to PTT of 56.6 - 109.0 sec. Performed By: #### 1 [id number] #### [facility] [address] [place] [address] INR Coag (PPP) [Relative time] 1.04 {INR} Invalid Interpretation Code [facility] Comment on above: Result Comment: INR results are specifically intended to assess patients stabilized on long-term Anticoagulation therapy suggested INR?s ?Less Intensive Anticoagulation? 2.0 ? 3.0 Conventional Range 3.0 ? 4.5 Performed By: #### 1 [id number] #### [facility] [address] [place] [address] PT Coag (PPP) [Time] 11.7 second(s) Normal 9.4-12.5 [facility] Comment on above: Result Comment: 15 d ays - 4 weeks 1 - 5 months 6 -11 months 1- 5 years 6-10 years 11 -17 years Mean: 11.2 (9.5-12.6) Mean: 11.0 (9.7-12.8) Mean: 11.0 (9.8-13.0) Mean: 11.3 (9.9-13.4) Mean: 11.7 (10.0-14.6) Mean: 11.8 (10.0 - 14.1) Pediatric Reference ranges were obtained from a study by Antoni Smart et al. prepared from 1437 samples obtained at 7 different centers using the same coagulation reagent and instrumentation as [facility]. Currently there are no coagulation studies available worldwide for children to 14 days, and no normal ranges. Performed By: #### 1 [id number] #### [facility] [address] [place] [address] Rapid COVID Antigen ([facility])on 06-03-2024 Rapid COV Int NEG Ctl Pass Normal [facility] Comment on above: Performed By: #### 2 [id number] ####[facility] [address] [place] [address] Rapid COV Int POS Ctl Pass Normal [facility] Comment on above: Performed By: #### 2 [id number] ####[facility] [address] [place] [address] SARS-CoV+SARS-CoV-2 (COVID-19) Ag IA.rapid Ql (Resp) Not detected Normal Not Detected [facility] Comment on above: Result Comment: The [employer]? System for Rapid Detection of SARS-CoV-2 is a chromatographic digital immunoassay intended for the direct and qualitative detection of SARS-CoV-2 nucleocapsid antigens in nasal swabs from individuals who are suspected of COVID-19 by their healthcare provider within the first five days of the onset of symptoms. Negative results should be treated as presumptive, do not rule out SARS-CoV-2 infection and should not be used as the sole basis for treatment or patient management decisions, including infection control decisions. Negative results should be considered in the context of a patient?s recent exposures, history and the presence of clinical signs and symptoms consistent with COVID-19, and confirmed with a molecular assay, if necessary, for patient management. For in vitro diagnostic use. In the [place], only for use under an Emergency Use Authorization. In the [place], this test has not been FDA cleared or approved; this test has been authorized by FDA under an EUA for use by authorized laboratories; use by laboratories certified under the CLIA, 42 U.S.C. ?263a, that meet requirements to perform moderate, high, or waived complexity tests and at the Point of Care (POC), i.e., in patient care settings operating under a CLIA Certificate of Waiver, Certificate of Compliance, or Certificate of Accreditation. This test has been authorized only for the detection of proteins from SARS-CoV-2, not for any other viruses or pathogens; and, in the [facility], this test is only authorized for the duration of the declaration that circumstances exist justifying the authorization of emergency use of in vitro diagnostics for detection and/or diagnosis of the virus that causes COVID-19 under Section 564(b)(1) of the Act, 21 U.S.C. ? 360bbb-3(b)(1), unless the authorization is terminated or revoked sooner. Performed By: #### 2 [id number] ####[facility] [address] [place] [address] Troponin 0 Hr.on 06-03-2024 Troponin HS 4.10 pg/mL Low 10.10-27.10 [facility] Comment on above: Result Comment: The 95% CI (Confidence Interval) PPV (Positive Predictive Value) for myocardial infarction in females is 38 pg/mL, in males 51 pg/mL. The results should be used in conjunction with clinical conditions of myocardial infarction. (Access High Sensitivity Troponin I Instructions For Use, Cely Parisa, April 2018) Performed By: #### 1 [id number] #### [facility] [address] [place] [address] UA with Cult Rflxon 06-03-20 24 Bilirubin Ql (U) Negative Normal Negative [facility] Comment on above: Performed By: #### 4 [id number] #### [facility] [address] [place] [address] Clarity (U) Clear Normal Clear [facility] Comment on above: Performed By: #### 4 [id number] #### [facility] [address] [place] [address] Color (U) Yellow Normal Yellow [facility] Comment on above: Result Comment: Micr oscopic readings are only performed on those samples that meet specific criteria set forth by [facility]. Performed By: #### 4 [id number] #### [facility] [address] [place] [address] Glucose Ql (U) Negative Normal Negative [facility] Comment on above: Performed By: #### 4 [id number] #### [facility] [address] [place] [address] Hemoglobin Auto test strip (U) [Mass/Vol] Trace Abnormal Negative [facility] Comment on above: Performed By: #### 4 [id number] #### [facility] [address] [place] [address] Ketones Auto test strip Ql (U) Negative Normal Negative [facility] Comment on above: Performed By: #### 4 [id number] #### [facility] [address] [place] [address] Leukocyte esterase Auto test strip Ql (U) Negative Normal Negative [facility] Comment on above: Performed By: #### 4 [id number] #### [facility] [address] [place] [address] Nitrite Auto test strip Ql (U) Negative Normal Negative [facility] Comment on above: Performed By: #### 4 [id number] #### [facility] [address] [place] [address] pH (U) 5.5 [pH] Invalid Interpretation Code 5.0-9.0 [facility] Comment on above: Performed By: #### 4 [id number] #### [facility] [address] [place] [address] Protein Ql (U) Trace Abnormal Negative [facility] Comment on above: Performed By: #### 4 [id number] #### [facility] [address] [place] [address] Specific gravity (U) [Rel density] 1.031 Invalid Interpretation Code 1.005-1.030 [facility] Comment on above: Performed By: #### 4 [id number] #### [facility] [address] [place] [address] Urobilinogen (U) [Mass/Vol] 2 mg/dL Abnormal Negative [facility] Comment on above: Performed By: #### 4 [id number] #### [facility] [address] [place] [address] Type of Urine collection method Clean Catch Normal [facility] Comment on above: Performed By: #### 4 [id number] #### [facility] [address] [place] [address] URINALYSISOrdered By: SYSTEM SYSTEM on 06-03-2024 Bilirubin Ql (U) Negative Normal Negativemg/ dL [facility] UA Auto SS Clarity (U) Clear (06/03/24 12:52 PM) Normal Clear [facility] UA Auto SS Color (U) Yellow 1 (06/03/24 12:52 PM) Normal Yellow [facility] UA Auto SS Comment on above: Interpretive Data: M icroscopic readings are only performed on those samples that meet specific criteria set forth by [facility]. Glucose Ql (U) Negative Normal Negativemg/ dL [facility] UA Auto SS Hemoglobin Auto test strip (U) [Mass/Vol] Trace mg/dL Invalid Interpretation Code Negativemg/ dL [facility] UA Auto SS Ketones Auto test strip Ql (U) Negative Normal Negativemg/ dL [facility] UA Auto SS Leukocyte esterase Auto test strip Ql (U) Negative Normal NegativeLeu /uL [facility] UA Auto SS Nitrite Auto test strip Ql (U) Negative Normal Negativemg/ dL [facility] UA Auto SS pH (U) 5.5 *NA* (06/03/24 12:52 PM) Invalid Interpretation Code 5.0 - 9.0 [facility] UA Auto SS Protein Ql (U) Trace mg/dL Invalid Interpretation Code Negativemg/ dL [facility] UA Auto SS Specific gravity (U) [Rel density] 1.031 *NA* (06/03/24 12:52 PM) Invalid Interpretation Code 1.005 - 1.030 [facility] UA Auto SS Urobilinogen (U) [Mass/Vol] 2 mg/dL Invalid Interpretation Code Negativemg/ dL [facility] UA Auto SS URINALYSISOrdered By: Hans Davis on 06-03-2024 UA Spec Desc Clean Catch (06/03/24 12:52 PM) Normal [facility] UA Auto SS Work Phone: eGFRon 06-03-2024 eGFR 103 mL/min/1.73 m2 Normal >=59 [facility] Comment on above: Order Comment: Order added by Discern Expert. Performed By: #### 1 [id number] #### [facility] [address] [place] [id number] ED Clinical Summaryon 2023 ED Clinical Summary ED Clinical Summary [address] [address] ED Clinical Summary Person Information Name: JANA CABALLERO [place] Age: 53 Years : 1970 Sex: Female Language: Syrian PCP: Brigitte Carpenter Marital Status: Phone: [phone] Visit Id: Visit Reason: Body aches; Headache; HEADACHE / WANTS CHECKED FOR COVID Speciality: Acuity: 4 Enc Type: Emergency Med Service: Emergency Arrival: 05/05/2024 15:29:35 Discharge: 05/05/2024 17:06:55 LOS: 000 01:37 Checkin: 05/05/2024 15:29:35 Checkout: 05/05/2024 17:06:55 Dispo Type: Home (Routine DC) EVENTS: Event Name Event Status Request Date/Time Start Date/Time Complete Date/Time Arrive Complete 05/05/2024 15:29:35 05/05/2024 15:29:35 05/05/2024 15:29:35 Document Home Meds Request 05/05/2024 15:29:35 Triage Complete 05/05/2024 15:29:35 05/05/2024 15:35:53 05/05/2024 15:35:53 Bed Assign Complete 05/05/2024 15:32:08 05/05/2024 15:32:08 05/05/2024 15:32:08 Dr Exam Complete 05/05/2024 15:32:08 05/05/2024 15:37:21 05/05/2024 15:37:21 RN Exam Complete 05/05/2024 15:32:08 05/05/2024 15:54:38 05/05/2024 15:54:38 Registration Complete 05/05/2024 15:32:10 05/05/2024 15:32:10 05/05/2024 15:32:10 Reg Complete Request 05/05/2024 15:32:10 Reg Bed Request Complete 05/05/2024 15:32:10 05/05/2024 15:32:10 05/05/2024 15:32:10 Registration Request 05/05/2024 15:37:21 Pending Labs Complete 05/05/2024 15:40:57 05/05/2024 16:36:30 Lab Complete 05/05/2024 15:40:57 05/05/2024 16:36:30 Dr Exam Complete 05/05/2024 15:41:06 05/05/2024 15:41:06 05/05/2024 15:41:06 Discharge Complete 05/05/2024 16:56:08 05/05/2024 17:06:59 05/05/2024 17:06:59 Meds Admin Complete 05/05/2024 17:00:37 05/05/2024 17:04:44 Transfer Complete 05/05/2024 17:06:59 05/05/2024 17:06:59 05/05/2024 17:06:59 ADDRESS: [address] [facility] [id number] PHYS DOC NOTES: Addendum by Stefano Marino DO on May 05, 2024 16:56:42 EDT MEDICAL INFORMATION: Prescriptions Given: New Medications [id number], [address] [place], [place] [id number], [phone] acetaminophen (acetaminophen 325 mg Tab) 2 Tablets By Mouth every 4 hours as needed Pain/Fever. Refills: 0. ibuprofen (ibuprofen 600 mg Tab) 1 Tablets By Mouth every 8 hours as needed Pain/Fever. Refills: 0. Medications to Continue with No Changes Other Medications albuterol (albuterol HFA 90 mcg/inh MDI) 2 Puffs Inhalation every 4 hours as needed for wheezing. Refills: 0. escitalopram (escitalopram 10 mg Tab) 1 Tablets By Mouth every day. Refills: 0. ferrous sulfate (ferrous sulfate 325 mg Tab) 1 Tablets By Mouth every day. Refills: 1. meclizine (meclizine 25 mg Tab) 1 Tablets By Mouth 3 times a day as needed for dizziness. Refills: 0. multivitamin with minerals (One A Day Women's Complete oral tablet) 1 Tablets By Mouth every day. Refills: 0. naproxen (Naprosyn 500 mg Tab) 1 Tablets By Mouth 2 times a day as needed for pain. Refills: 0. naproxen (Naprosyn 500 mg Tab) 1 Tablets By Mouth 2 times a day as needed for pain. Refills: 0. naproxen (naproxen 500 mg Tab) 1 Tablets By Mouth 2 times a day. Take one tab by mouth two times a day. Refills: 0. ondansetron (Zofran 4 mg Tab) 1 Tablets By Mouth every 6 hours as needed Nausea. Take one tab by mouth every six hours as needed for nausea. Refills: 0. ondansetron (Zofran ODT 4 mg Tab-Dis) 1 Tablets By Mouth every 8 hours as needed Nausea/Vomiting. Refills: 0. oxybutynin (oxybutynin 5 mg ER Tab) 1 Tablets By Mouth every day. Refills: 0. pantoprazole (Pantoprazole [address] Tab) 1 Tablets By Mouth every day. Refills: 4. polyethylene glycol 3350 (polyethylene glycol 3350 Oral Pwdr for Recon) 17 Gram By Mouth every day. dissolve in water before taking. Refills: 0. psyllium (Metamucil Unflavored Smooth Texture Sugar Free 3.4 g/5.4 g oral powder) 3.4 Gram By Mouth every day. daily- stop 2-3 days if diarrhea occurs. Refills: 1. sulfamethoxazole-trimethopr im (Bactrim D.S. 800 mg-160 mg Tab) 1 Tablets By Mouth 2 times a day. Refills: 0. tamsulosin (Flomax 0.4 mg Cap) 1 Capsules By Mouth every day. Refills: 0. tamsulosin (tamsulosin 0.4 mg Cap) 1 Capsules By Mouth every day. Refills: 0. PATIENT EDUCATION INFORMATION: Instructions: Upper Respiratory Infection, Adult Follow up: With: Address: When: Brigitte Garcia [address] [facility], [address], [place] [address] Business (1) In 3 days 05/08/2024 Comments: COVID test negative Call the office of your primary care doctor to arrange for follow-up within the above-stated timeframe. Follow-up with your primary care doctor about this ED visit. You should review your labs, imaging, and diagnoses from this ED visit with your primary care physician. There are occasionally non-emergent findings that require additional follow-up after your ED visit. If you were prescribed medications you should discuss possible side-effec (more content not included)... Normal [facility] ED Note-Physicianon 05-05-20 ED Note-Physician ED Note-Physician Basic Information Time Seen: Bhupendra Dale PA-C 05/05/2024 15:37 Chief Complaint headache and bodyaches. covid concern History of Present Illness 53-year-old female comes to the ED with concerns of COVID-19 infection. The patient had recent exposure. She presents with generalized malaise and myalgias. She had occasional cough. She has had some chills but no fevers. No chest pain or shortness of breath. No difficulty with speaking or swallowing. Review of Systems A 10 point review of systems is negative except as noted above. Medical and Surgical History: Reviewed and noted Social history: Lives at home Tobacco: Denies Physical Exam Vitals & Measurements T: 37.1 ?C(Oral) HR: 81(Peripheral) RR: 18 BP: 150/80 SpO2: 95% HT: 170.18 cm WT: 96.1 kg BMI: 33.18 Nurses notes and vital signs reviewed and patient is not hypoxic. General: Well-appearing, does not appear ill Skin: Warm, dry. Head: Atraumatic. Neck: No JVD. Eye: Normal conjunctiva. Ears, Nose, Mouth, and Throat: Sinus congestion, no difficulty with speaking or swallowing Cardiovascular: Not tachycardic Chest wall: Respiratory: Respirations are nonlabored. Back: Normal range of motion. Musculoskeletal: Normal ROM with no gross deformity. Gastrointestinal: Urological: Neurological: Awake and alert. No focal deficits. Follows commands. Psychiatric: Cooperative. Medical Decision Making Patient presents with concerns for COVID infection. Overall well-appearing, nontoxic, no chest pain or shortness of breath. Stable vital signs. Test is pending and the patient is signed out to the oncoming physician for follow-up and disposition. Assessment/Plan 1. Exposure to COVID-19 virus (Z20.828: Contact with and (suspected) exposure to other viral communicable diseases) Orders: Rapid COVID Antigen ([facility]) Disposition Plan Patient Discharge Condition Disposition: Discharged home Condition: Improved and stable Counseled: Patient and/or family were counseled to workup, results, treatment plan and follow-up recommendations Discharge Prescription List Prescriptions No active prescription medications Follow-up No qualifying data available Attestation I performed a substantive part of the MDM during the patient?s E/M visit. I personally made or approved the documented management plan and acknowledge its risk of complications. (Independent Interpretation) My (EKG/X-Ray/US/CT) interpretation as above. (Discussion) Management/test interpretation discussed with APC. This report was transcribed using voice recognition software. Every effort was made to ensure accuracy, however, inadvertently computerized director of retail analytics mistakes may be present. Appropriate healthcare PPE was used in evaluating this patient. Problem List/Past Medical History Ongoing Abdominal fullness Abdominal pain Acute constipation Allergic rhinitis Anemia Bronchitis Discoloration of skin of toe Dizziness E-coli UTI Exposure to COVID-19 virus Fatigue Flank pain Former smoker Frequency of urination LALO (generalized anxiety disorder) Gastroesophageal reflux disease Hematuria Hiatal hernia History of cervical cancer History of kidney stones Hydronephrosis with urinary obstruction due to ureteral calculus kidney stones Malignant tumor of cervix Mild recurrent major depression Nausea in adult Nicotine dependence, cigarettes, in remission Nocturia Onychia, toe Onychomycosis Other urethral stricture, female Paresthesia Recurrent headache Renal calculus, right Screening for colon cancer Screening for diabetes mellitus Screening for lipid disorders Smoker Vertigo Wellness examination Historical Anemia due to unknown mechanism Cervical cancer Chemotherapy Hernia migraines Radiation Procedure/Surgical History Cystoscopy (03/07/2020), :LEEP, exam under anesthesia (10/06/2016), hernia repair (11/25/2015), incisional hernia repair (05/13/2015), (2003), Tubal ligation (2003), Cancer cervix screening - up-to-date, lymph nodes removed from abdomen, T&A, urethra dialation. Medications Inpatient No active inpatient medications Home albuterol HFA 90 mcg/inh MDI, 2 puff(s), Inhalation, q4hr, PRN Bactrim D.S. 800 mg-160 mg Tab, 1 tab(s), Oral, BID escitalopram 10 mg Tab, 10 mg= 1 tab(s), Oral, Daily ferrous sulfate 325 mg Tab, 325 mg= 1 tab(s), Oral, Daily, 1 refills Flomax 0.4 mg Cap, 0.4 mg= 1 cap(s), Oral, Daily meclizine 25 mg Tab, 25 mg= 1 tab(s), Oral, TID, PRN Metamucil Unflavored Smooth Texture Sugar Free 3.4 g/5.4 g oral powder, 3.4 gm, Oral, Daily, 1 refills Naprosyn 500 mg Tab, 500 mg= 1 tab(s), Oral, BID, PRN Naprosyn 500 mg Tab, 500 mg= 1 tab(s), Oral, BID, PRN naproxen 500 mg Tab, 500 mg= 1 tab(s), Oral, BID One A Day Women's Complete oral tablet, 1 tab(s), Oral, Daily oxybutynin 5 mg ER Tab, 5 mg= 1 tab(s), Oral, Daily Pantoprazole [address] Tab, 20 mg= 1 (more content not included)... Normal [facility] Comment on above: Result Comment: Elec tronically Signed By: Stefano Marino DO\.br\Date and Time Signed: 05/05/24 16:57 EDT ED Patient Summaryon 024 ED Patient Summary ED Patient Summary [address] [address] Patient Discharge Instructions Person Information Name: JANA CABALLERO Age: 53 Years Arrival Date: 05/05/2024 15:29:35 Discharge Diagnosis: 1:Exposure to COVID-19 virus Primary Care Physician: Brigitte Carpenter Provider Information Primary Provider: Stefano Marino DO Advanced Asset Management Analyst:Bhupendra Dale PA-C The exam and treatment you received in the Emergency Department were for an urgent problem and are not intended as complete care. It is important that you follow up with a doctor, nurse practitioner, or physician?s accounting administrative assistant for ongoing care. If your symptoms become worse or you do not improve as expected and you are unable to reach your usual health care provider, you should return to the Emergency Department. We are available 24 hours a day. JANA CABALLERO has been given the following list of patient education materials, prescriptions and follow-up instructions: Follow-up Instructions: With: Address: When: Brigitte Garcia [address] [place] [address] [place] [phone] Business (1) In 3 days 05/08/2024 Comments: COVID test negative Call the office of your primary care doctor to arrange for follow-up within the above-stated timeframe. Follow-up with your primary care doctor about this ED visit. You should review your labs, imaging, and diagnoses from this ED visit with your primary care physician. There are occasionally non-emergent findings that require additional follow-up after your ED visit. If you were prescribed medications you should discuss possible side-effects and drug interactions with your pharmacist. Call 911 or go to the nearest Emergency Department if you develop any new or worsening symptoms. Seek immediate medical attention if you develop: worsening shortness of breath, difficulty breathing, chest pain, nausea, vomiting, weakness, numbness, tingling, excessive sweating, loss of motion in your arms or legs, or any new or worsening symptoms. In the event that this physician does not participate in your insurance network, please consult with your insurance company to find a nearby participating provider. Patient Education Materials: Upper Respiratory Infection, Adult A MESSAGE TO ALL PATIENTS REGARDING OPIOIDS PRESCRIPTION OPIOIDS: WHAT YOU NEED TO KNOW Prescription opioids can be used to help relieve yawefcnu-yr-ykewbl pain and are often prescribed following a surgery or injury, or for certain health conditions. These medications can be an important part of the treatment but also come with serious risks. It is important to work with your healthcare provider to make sure you are getting the safest, most effective care. WHAT ARE THE RISKS AND SIDE EFFECTS OF OPIOID USE? Prescription opioids carry serious risks of addiction and overdose, especially with prolonged use. An opioid overdose, often marked by slowed breathing, can cause sudden . The use of prescription opioids can have a number of side effects as well, even when taken as directed: ? Tolerance?meaning you might need to take more of the medication for the same pain relief ? Physical dependence?meaning you have symptoms of withdrawal when a medication is stopped ? Increased sensitivity to pain ? Constipation ? Nausea, vomiting, and dry mouth ? Sleepiness and dizziness ? Confusion ? Depression ? Low levels of testosterone that can result in lower sex drive, energy, and strength ? Itching and sweating RISKS ARE GREATER WITH: ? History of drug misuse, substance use disorder, or overdose ? Mental health conditions (such as depression or anxiety) ? Sleep apnea ? Older age (65 years and older) ? Avoid alcohol while taking prescription opioids. Also, unless specifically advised by your health care provider, medications to avoid include: ? Benzodiazepines (such as Xanax or Valium) ? Muscle relaxants (such as Soma or Flexeril) ? Hypnotics (such as Ambien or Lunesta) ? Other prescription opioids KNOW YOUR OPTIONS Talk to your health care provider about ways to manage your pain that don?t involve prescription opioids. Some of these options may actually work better and have fewer risks and side effects. Options may include: ? Pain relievers such as acetaminophen, ibuprofen, and naproxen ? Some medication that are also used for depression or seizures ? Physical therapy and exercise ? Cognitive behavioral therapy, a psychological, goal-directed approach, in which patients learn how to modify physical, behavioral, and emotional triggers of pain and stress. IF YOU ARE PRESCRIBED OPIOIDS FOR PAIN: ? Never take opioids in greater amounts or more often than prescribed. ? Follow up with your primary health care provider. o Work together to create a plan on how to manage your moreno (more content not included)... Normal [facility] MICRO OTHER TESTSOrdered By: Delia Schmitt on 05-05-2024 Rapid COV Int NEG Ctl Pass (05/05/24 3:55 PM) Normal [facility] Sero Rapid COV Int POS Ctl Pass (05/05/24 3:55 PM) Normal [facility] Sero SARS-CoV+SARS-CoV-2 (COVID-19) Ag IA.rapid Ql (Resp) Not Detected 1 (05/05/24 3:55 PM) Normal Not Detected [facility] Sero Comment on above: Interpretive Data: Oniel christy [employer]itor System for Rapid Detection of SARS-CoV-2 is a chromatographic digital immunoassay intended for the direct and qualitative detection of SARS-CoV-2 nucleocapsid antigens in nasal swabs from individuals who are suspected of COVID-19 by their healthcare provider within the first five days of the onset of symptoms. Negative results should be treated as presumptive, do not rule out SARS-CoV-2 infection and should not be used as the sole basis for treatment or patient management decisions, including infection control decisions. Negative results should be considered in the context of a patient s recent exposures, history and the presence of clinical signs and symptoms consistent with COVID-19, and confirmed with a molecular assay, if necessary, for patient management. For in vitro diagnostic use. In the [place], only for use under an Emergency Use Authorization. In the [place], this test has not been FDA cleared or approved; this test has been authorized by FDA under an EUA for use by authorized laboratories; use by laboratories certified under the CLIA, 42 U.S.C. 263a, that meet requirements to perform moderate, high, or waived complexity tests and at the Point of Care (POC), i.e., in patient care settings operating under a CLIA Certificate of Waiver, Certificate of Compliance, or Certificate of Accreditation. This test has been authorized only for the detection of proteins from SARS-CoV-2, not for any other viruses or pathogens; and, in the [place], this test is only authorized for the duration of the declaration that circumstances exist justifying the authorization of emergency use of in vitro diagnostics for detection and/or diagnosis of the virus that causes COVID-19 under Section 564(b)(1) of the Act, 21 U.S.C. 360bbb-3(b)(1), unless the authorization is terminated or revoked sooner. Rapid COVID Antigen ([facility])on 05-05-2024 Rapid COV Int NEG Ctl Pass Normal [facility] Comment on above: Performed By: #### 2 [id number] #### [facility] [address] [place] [address] Rapid COV Int POS Ctl Pass Normal [facility] Comment on above: Performed By: #### 2 [id number] #### [facility] [address] [place] [address] SARS-CoV+SARS-CoV-2 (COVID-19) Ag IA.rapid Ql (Resp) Not detected Normal Not Detected [facility] Comment on above: Result Comment: The [employer]itor? System for Rapid Detection of SARS-CoV-2 is a chromatographic digital immunoassay intended for the direct and qualitative detection of SARS-CoV-2 nucleocapsid antigens in nasal swabs from individuals who are suspected of COVID-19 by their healthcare provider within the first five days of the onset of symptoms. Negative results should be treated as presumptive, do not rule out SARS-CoV-2 infection and should not be used as the sole basis for treatment or patient management decisions, including infection control decisions. Negative results should be considered in the context of a patient?s recent exposures, history and the presence of clinical signs and symptoms consistent with COVID-19, and confirmed with a molecular assay, if necessary, for patient management. For in vitro diagnostic use. In the [place], only for use under an Emergency Use Authorization. In the [place], this test has not been FDA cleared or approved; this test has been authorized by FDA under an EUA for use by authorized laboratories; use by laboratories certified under the CLIA, 42 U.S.C. ?263a, that meet requirements to perform moderate, high, or waived complexity tests and at the Point of Care (POC), i.e., in patient care settings operating under a [place] Certificate of Waiver, Certificate of Compliance, or Certificate of Accreditation. This test has been authorized only for the detection of proteins from SARS-CoV-2, not for any other viruses or pathogens; and, in the [place], this test is only authorized for the duration of the declaration that circumstances exist justifying the authorization of emergency use of in vitro diagnostics for detection and/or diagnosis of the virus that causes COVID-19 under Section 564(b)(1) of the Act, 21 U.S.C. ? 360bbb-3(b)(1), unless the authorization is terminated or revoked sooner. Performed By: #### 2 [id number] #### [facility] [address] [place] [address] ED Note-Physicianon 04-10-20 ED Note-Physician ED Note-Physician Basic Information Time Seen: Bhupendra Dale PA-C 04/09/2024 15:33 Chief Complaint Pt states that she has swelling in her stomach thats been going on a while. Pt states that shes been having nause/vomiting. Pt states that last normal bowel movement was yesterday. Pt thinks she might be diabetic and feels like shes bottoming out. History of Present Illness 53-year-old female comes to the ED for evaluation of abdominal pain. She feels like her abdomen is bloated and she is been having some problems with bowel movements. She feels constipated. Did have a bowel movement yesterday. No nausea or vomiting. No chest pain or shortness of breath. No urinary difficulty or discomfort. She has had multiple previous abdominal surgeries. She describes waxing waning abdominal cramping for quite some time. No fever or chills. No prior treatments. She is worried about diabetes due to family history of this, however she has no personal history of diabetes. Review of Systems A 10 point review of systems is negative except as noted above. Medical and Surgical History: Reviewed and noted Social history: Lives at home Tobacco: Denies Physical Exam Vitals & Measurements T: 36.7 ?C(Oral) HR: 53(Monitored) RR: 16 BP: 131/78 SpO2: 94% HT: 170.18 cm WT: 96.1 kg BMI: 33.18 Nurses notes and vital signs reviewed and patient is not hypoxic. General: The patient appears well, resting comfortably. Skin: Warm, dry. Head: Atraumatic. Neck: No JVD. Eye: Normal conjunctiva. Ears, Nose, Mouth, and Throat: Moist mucous membranes. Cardiovascular: Strong distal pulses. Chest wall: Respiratory: Respirations are nonlabored. Back: Normal range of motion. Musculoskeletal: Normal ROM with no gross deformity. Gastrointestinal: Abdomen soft throughout. No guarding rebound or rigidity. No distention. Urological: Neurological: Awake and alert. No focal deficits. Follows commands. Psychiatric: Cooperative. Medical Decision Making Laboratory studies reviewed and noted. Her abdominal examination benign. Soft without reproducible tenderness. She has stable vital signs. She had multiple CTs of the abdomen recently. Obtain a KUB today with no acute findings. Results are discussed with the patient. While she does not appear constipated imaging, clinically she feels constipated and is started on MiraLAX. She is discharged home with PCP follow-up. Patient was encouraged to return to the ED if symptoms worsen or change. Assessment/Plan Abdominal pain (R10.9: Unspecified abdominal pain) Constipation (K59.00: Constipation, unspecified) Orders: ketorolac, 60 mg = 2 mL, Injection, IntraMuscular, Once, Stop date 04/09/24 16:35:00 EDT, STAT, Start date 04/09/24 16:35:00 EDT, 04/09/24 16:35:00 EDT polyethylene glycol 3350, 17 gram, Oral, Daily, dissolve in water before taking, # 255 gram, Refills(s) 0 Basic Metabolic Panel CBC w/ Auto Diff eGFR Extra Blue Tube Extra SST Tube Hepatic Function Panel Lipase Level UA with Cult Rflx XR Abdomen 1 View Medications Administered Given ketorolac 60 mg/2 mL Injection, 60 mg, IntraMuscular Disposition Plan Patient Discharge Condition Disposition: Discharged home Condition: Improved and stable Counseled: Patient and/or family were counseled to workup, results, treatment plan and follow-up recommendations Discharge Prescription List Prescriptions polyethylene glycol 3350 Oral Pwdr for Recon, 17 gm, Oral, Daily Follow-up With When Contact Information Brigitte Garcia In 3 days 04/12/2024 EDT [address], [facility] A [address] [address]- Business (1) Additional Instructions: Patient Education Constipation, Adult Abdominal Bloating Attestation I performed a substantive part of the MDM during the patient?s E/M visit. I personally made or approved the documented management plan and acknowledge its risk of complications. (Independent Interpretation) My (EKG/X-Ray/US/CT) interpretation as above. (Discussion) Management/test interpretation discussed with APC. This report was transcribed using voice recognition software. Every effort was made to ensure accuracy, however, inadvertently computerized director of retail analytics mistakes may be present. Appropriate healthcare PPE was used in evaluating this patient. Problem List/Past Medical History Ongoing Abdominal fullness Abdominal pain Acute constipation Allergic rhinitis Anemia Bronchitis Discoloration of skin of toe Dizziness E-coli UTI Exposure to COVID-19 virus Fatigue Flank pain Former smoker Frequency of urination LALO (generalized anxiety disorder) Gastroesophageal reflux disease Hematuria Hiatal hernia History of cervical cancer History of kidney stones Hydronephrosis with urinary obstruction due to ureteral calculus kidney stones Malignant tumor of cervix Mild recurrent major depression Nausea in adult Nicotine dependence, cigarettes, in remission Nocturia (more content not included)... Normal [facility] Comment on above: Result Comment: Elec tronically Signed By: Bhupendra Dale PA-C\.br\Date and Time Signed: 04/09/24 17:26 EDT\.br\Electronically Co-Signed By: Iban Haji MD\.br\Date and Time Co-Signed: 04/10/24 10:05 EDT BMPon 04-09-2024 Anion gap [Moles/Vol] 9 mmol/L Normal 6-16 [facility] Comment on above: Performed By: #### 2 [id number] #### [facility] [address] [place] [address] Calcium [Mass/Vol] 8.7 mg/dL Low 8.9-11.1 [facility] Comment on above: Performed By: #### 2 [id number] #### [facility] [address] [place] [address] Chloride [Moles/Vol] 107 mmol/L Normal 101-111 [facility] Comment on above: Performed By: #### 2 [id number] #### [facility] [address] [place] [address] CO2 [Moles/Vol] 27 mmol/L Normal 21-31 [facility] Comment on above: Performed By: #### 2 [id number] #### [facility] [address] [place] [address] Creatinine [Mass/Vol] 0.7 mg/dL Normal 0.5-1.3 [facility] Comment on above: Performed By: #### 2 [id number] #### [facility] [address] [place] [address] Glucose [Mass/Vol] 97 mg/dL Normal 55-199 [facility] Comment on above: Performed By: #### 2 [id number] #### [facility] [address] [place] [address] Potassium [Moles/Vol] 4.1 mmol/L Normal 3.5-5.3 [facility] Comment on above: Performed By: #### 2 [id number] #### [facility] [address] [place] [address] Sodium [Moles/Vol] 139 mmol/L Normal 135-145 [facility] Comment on above: Performed By: #### 2 [id number] #### [facility] [address] [place] [address] Urea nitrogen [Mass/Vol] 14 mg/dL Normal 5-21 [facility] Comment on above: Performed By: #### 2 [id number] #### [facility] [address] [place] [address] Urea nitrogen/Creatinine [Mass ratio] 20 No Units Normal 10-20 [facility] Comment on above: Performed By: #### 2 [id number] #### [facility] [address] [place] [address] CBC w/ Auto Diffon 4 Basophils/100 WBC (Bld) 2.1 % High 0.0-2.0 [facility] Comment on above: Performed By: #### 2 [id number] #### [facility] [address] [place] [address] Basophils/Leukocytes Auto (Bld) [Pure # fraction] 0.1 E9/L Normal 0.0-0.2 [facility] Comment on above: Performed By: #### 2 [id number] #### [facility] [address] [place] [address] Eosinophils (Bld) [#/Vol] 0.4 E9/L Normal 0.0-0.5 [facility] Comment on above: Performed By: #### 2 [id number] #### [facility] [address] [place] [address] Eosinophils/100 WBC (Bld) 10.6 % High 0.0-8.0 [facility] Comment on above: Result Comment: Rgeina pheral smear review performed. Performed By: #### 2 [id number] #### [facility] [address] [place] [address] Erythrocyte distribution width (RBC) [Ratio] 15.5 % High 10.9-14.2 [facility] Comment on above: Performed By: #### 2 [id number] #### [facility] [address] [place] [address] Hematocrit (Bld) [Volume fraction] 29.6 % Low 34.0-46.0 [facility] Comment on above: Performed By: #### 2 [id number] #### [facility] [address] [place] [address] Hemoglobin (Bld) [Mass/Vol] 10.0 g/dL Low 12.0-16.0 [facility] Comment on above: Performed By: #### 2 [id number] #### [facility] [address] [place] [address] Lymphocytes (Bld) [#/Vol] 1.4 E9/L Normal 1.0-4.0 [facility] Comment on above: Performed By: #### 2 [id number] #### [facility] [address] [place] [address] Lymphocytes/100 WBC (Bld) 33.6 % Normal 14.0-50.0 [facility] Comment on above: Performed By: #### 2 [id number] #### [facility] [address] [place] [address] MCH (RBC) [Entitic mass] 27.7 pg Normal 27.0-34.0 [facility] Comment on above: Performed By: #### 2 [id number] #### [facility] [address] [place] [address] MCHC (RBC) [Mass/Vol] 33.9 g/dL Normal 31.4-36.0 [facility] Comment on above: Performed By: #### 2 [id number] #### [facility] [address] [place] [address] MCV (RBC) [Entitic vol] 81.7 fL Normal 80.0-100.0 [facility] Comment on above: Performed By: #### 2 [id number] #### [facility] [address] [place] [address] Monocytes (Bld) [#/Vol] 0.4 E9/L Normal 0.2-1.0 [facility] Comment on above: Performed By: #### 2 [id number] #### [facility] [address] [place] [address] Neutrophils (Bld) [#/Vol] 1.8 E9/L Low 2.0-7.5 [facility] Comment on above: Performed By: #### 2 [id number] #### [facility] [address] [place] [address] Neutrophils/100 WBC (Bld) 44.4 % Normal 36.0-75.0 [facility] Comment on above: Performed By: #### 2 [id number] #### [facility] [address] [place] [address] Platelet 207.0 E9/L Normal 150.0-500.0 [facility] Comment on above: Performed By: #### 2 [id number] #### [facility] [address] [place] [address] Platelet mean volume (Bld) [Entitic vol] 7.9 fL Normal 6.4-10.8 [facility] Comment on above: Performed By: #### 2 [id number] #### [facility] [address] [place] [address] RBC (Bld) [#/Vol] 3.6 E12/L Low 4.3-5.9 [facility] Comment on above: Performed By: #### 2 [id number] #### [facility] [address] [place] [address] WBC corrected for nucl RBC Auto (Bld) [#/Vol] 4.1 E9/L Normal 4.0-11.0 [facility] Comment on above: Performed By: #### 2 [id number] #### [facility] [address] [place] [address] CHEMISTRYOrdered By: SYSTEM SYSTEM on 04-09-2024 Albumin [Mass/Vol] 3.6 g/dL Normal 3.3 - 5.0 gm/dL Remisol Chem Albumin/Globulin [Mass ratio] 1.5 {ratio} Normal 1.1 - 2.2 Remisol Chem ALP [Catalytic activity/Vol] 75 [iU]/d Normal 21 - 98 Int._Unit/L Remisol Chem ALT No additional P-5'-P [Catalytic activity/Vol] 17 [iU]/d Normal 6 - 46 Int._Unit/L Remisol Chem Anion gap [Moles/Vol] 9 mmol/L Normal 6 - 16 mEq/L Rem[facility] Chem AST [Catalytic activity/Vol] 15 [iU]/d Normal 5 - 43 Int._Unit/L [facility] Bilirubin [Mass/Vol] 0.3 mg/dL Normal 0.0 - 1 .1 mg/dL Rem[facility] Chem Bilirubin.direct [Mass/Vol] 0.1 mg/dL Normal 0.0 - 0.4 mg/dL Remisol Chem Bilirubin.indirect [Mass or moles/Vol] 0.2 mg/dL Normal 0.1 - 0.9 mg/dL [facility] Calcium [Mass/Vol] 8.7 mg/dL Low 8.9 - 11. 1 mg/dL [facility] Chloride [Moles/Vol] 107 mmol/L Normal 101 - 1 11 mmol/L [facility] CO2 [Moles/Vol] 27 mmol/L Normal 21 - 31 mmol/L [facility] Creatinine [Mass/Vol] 0.7 mg/dL Normal 0.5 - 1.3 mg/dL [facility] eGFR 103 mL/min/1.73 m2 Normal >=59mL/mi n/ 1.73 m2 [facility] Globulin (S) [Mass/Vol] 2.4 g/dL Normal 1.4 - 4.0 gm/dL [facility] Glucose [Mass/Vol] 97 mg/dL Normal 55 - 199 mg/dL [facility] Lipase [Catalytic activity/Vol] 48 U/L Normal 13 - 58 unit/L [facility] Potassium [Moles/Vol] 4.1 mmol/L Normal 3.5 - 5.3 mmol/L Rem[facility] Protein [Mass/Vol] 6.0 g/dL Normal 6.0 - 7.8 gm/dL [facility] Sodium [Moles/Vol] 139 mmol/L Normal 135 - 145 mmol/L [facility] Urea nitrogen [Mass/Vol] 14 mg/dL Normal 5 - 21 mg/dL [facility] Urea nitrogen/Creatinine [Mass ratio] 20 mg/mg Normal 10 - 20 [facility] CHEMISTRYOrdered By: Jack Richter on 04-09-2024 POC Device SN [id number] 1 Invalid Interpretation Code [facility] Subsection POC User ID [id number] 1 Invalid Interpretation Code [facility] Subsection POC Username SEE [email or web address] Invalid Interpretation Code [facility] Subsection Capillary Glucose POCOrdered By: Jack Finney on 04-09-2024 Glucose [Mass/Vol] 96 mg/dL Normal 55-99 [facility] OC Subsection Comment on above: Result Comment: Adela bailey RN/ Performed By: #### 2 [id number] #### [facility] [address] [place] [id number] ED Clinical Summaryon 2023 ED Clinical Summary ED Clinical Summary [address] [address] ED Clinical Summary Person Information Name: JANA CABALLERO [place] Age: 53 Years : 1970 Sex: Female Language: Syrian PCP: Brigitte Carpenter Marital Status: Phone: [phone] Visit Id: Visit Reason: Vomiting; Nausea; Abdominal pain; Headache; SEVERE HEADACHE AND STOMACH SWELLING Speciality: Acuity: 3 Enc Type: Emergency Med Service: Emergency Arrival: 04/09/2024 15:04:44 Discharge: 04/09/2024 17:32:37 LOS: 000 02:28 Checkin: 04/09/2024 15:04:44 Checkout: 04/09/2024 17:32:37 Dispo Type: Home (Routine DC) EVENTS: Event Name Event Status Request Date/Time Start Date/Time Complete Date/Time Arrive Complete 04/09/2024 15:04:44 04/09/2024 15:04:44 04/09/2024 15:04:44 Document Home Meds Request 04/09/2024 15:04:44 Triage Complete 04/09/2024 15:04:44 04/09/2024 15:17:37 04/09/2024 15:17:37 Bed Assign Complete 04/09/2024 15:11:32 04/09/2024 15:11:32 04/09/2024 15:11:32 Dr Exam Complete 04/09/2024 15:11:32 04/09/2024 15:33:58 04/09/2024 15:33:58 RN Exam Complete 04/09/2024 15:11:32 04/09/2024 15:31:42 04/09/2024 15:31:42 Pending Labs Complete 04/09/2024 15:25:11 04/09/2024 15:25:11 04/09/2024 15:25:11 Registration Complete 04/09/2024 15:33:58 04/09/2024 15:50:20 04/09/2024 15:50:20 X-Ray Complete 04/09/2024 15:42:17 04/09/2024 15:54:07 04/09/2024 16:07:54 Pending Labs Complete 04/09/2024 15:42:17 04/09/2024 16:51:58 Lab Complete 04/09/2024 15:42:17 04/09/2024 16:39:30 Reg Complete Request 04/09/2024 15:50:20 Reg Bed Request Complete 04/09/2024 15:50:20 04/09/2024 15:50:20 04/09/2024 15:50:20 Pending Labs Complete 04/09/2024 16:01:47 04/09/2024 16:01:47 04/09/2024 16:31:45 Lab Complete 04/09/2024 16:01:47 04/09/2024 16:01:47 04/09/2024 16:31:45 Pending Labs Complete 04/09/2024 16:02:22 04/09/2024 16:02:22 04/09/2024 16:02:23 Wet Read Request 04/09/2024 16:07:54 Meds Admin Complete 04/09/2024 16:36:06 04/09/2024 16:43:56 Dr Exam Complete 04/09/2024 17:22:45 04/09/2024 17:22:45 04/09/2024 17:22:45 Registration Request 04/09/2024 17:22:45 Discharge Complete 04/09/2024 17:23:15 04/09/2024 17:32:42 04/09/2024 17:32:42 Transfer Complete 04/09/2024 17:32:42 04/09/2024 17:32:42 04/09/2024 17:32:42 ADDRESS: [address] [place] [address] [id number] [facility] DOC NOTES: MEDICAL INFORMATION: Prescriptions Given: New Medications Printed Prescriptions polyethylene glycol 3350 (polyethylene glycol 3350 Oral Pwdr for Recon) 17 Gram By Mouth every day. dissolve in water before taking. Refills: 0. Medications to Continue with No Changes Other Medications albuterol (albuterol HFA 90 mcg/inh MDI) 2 Puffs Inhalation every 4 hours as needed for wheezing. Refills: 0. escitalopram (escitalopram 10 mg Tab) 1 Tablets By Mouth every day. Refills: 0. ferrous sulfate (ferrous sulfate 325 mg Tab) 1 Tablets By Mouth every day. Refills: 1. meclizine (meclizine 25 mg Tab) 1 Tablets By Mouth 3 times a day as needed for dizziness. Refills: 0. multivitamin with minerals (One A Day Women's Complete oral tablet) 1 Tablets By Mouth every day. Refills: 0. naproxen (Naprosyn 500 mg Tab) 1 Tablets By Mouth 2 times a day as needed for pain. Refills: 0. naproxen (Naprosyn 500 mg Tab) 1 Tablets By Mouth 2 times a day as needed for pain. Refills: 0. naproxen (naproxen 500 mg Tab) 1 Tablets By Mouth 2 times a day. Take one tab by mouth two times a day. Refills: 0. ondansetron (Zofran 4 mg Tab) 1 Tablets By Mouth every 6 hours as needed Nausea. Take one tab by mouth every six hours as needed for nausea. Refills: 0. ondansetron (Zofran ODT 4 mg Tab-Dis) 1 Tablets By Mouth every 8 hours as needed Nausea/Vomiting. Refills: 0. oxybutynin (oxybutynin 5 mg ER Tab) 1 Tablets By Mouth every day. Refills: 0. pantoprazole (Pantoprazole [address] Tab) 1 Tablets By Mouth every day. Refills: 4. psyllium (Metamucil Unflavored Smooth Texture Sugar Free 3.4 g/5.4 g oral powder) 3.4 Gram By Mouth every day. daily- stop 2-3 days if diarrhea occurs. Refills: 1. sulfamethoxazole-trimethopr im (Bactrim D.S. 800 mg-160 mg Tab) 1 Tablets By Mouth 2 times a day. Refills: 0. tamsulosin (Flomax 0.4 mg Cap) 1 Capsules By Mouth every day. Refills: 0. tamsulosin (tamsulosin 0.4 mg Cap) 1 Capsules By Mouth every day. Refills: 0. PATIENT EDUCATION INFORMATION: Instructions: Constipation, Adult; Abdominal Bloating Follow up: With: Address: When: Brigitte Polo, [address], [facility] [employer] [address] [place], [place] [id number] Independent IP ([employer] In 3 days 04/12/2024 DIAGNOSIS: Abdominal pain; Constipation Normal [facility] ED Clinical Summary ED Clinical Summary [address] [address] ED Clinical Summary Person Information Name: JANA CABALLERO/[place] Alfredo Age: 53 Years : 1970 Sex: Female Language: Syrian PCP: Brigitte Carpenter Marital Status: Phone: [phone] Visit Id: Visit Reason: Abdominal problem; Headache; HEADACHE, ABD SWELLING Speciality: Acuity: 3 Enc Type: Emergency Med Service: Emergency Arrival: 04/09/2024 12:42:46 Discharge: 04/09/2024 14:38:16 LOS: 000 01:56 Checkin: 04/09/2024 12:42:46 Checkout: 04/09/2024 14:38:16 Dispo Type: Left Without Being Seen EVENTS: Event Name Event Status Request Date/Time Start Date/Time Complete Date/Time Arrive Complete 04/09/2024 12:42:46 04/09/2024 12:42:46 04/09/2024 12:42:46 Document Home Meds Request 04/09/2024 12:42:46 Triage Complete 04/09/2024 12:42:46 04/09/2024 12:53:40 04/09/2024 12:53:40 Registration Complete 04/09/2024 12:45:46 04/09/2024 12:45:46 04/09/2024 12:45:46 Reg Complete Request 04/09/2024 12:45:46 Reg Bed Request Complete 04/09/2024 12:45:46 04/09/2024 12:45:46 04/09/2024 12:45:46 Discharge Complete 04/09/2024 14:38:27 04/09/2024 14:38:27 04/09/2024 14:38:27 Transfer Complete 04/09/2024 14:38:27 04/09/2024 14:38:27 04/09/2024 14:38:27 ADDRESS: [address] [place] [address] [id number] PHYS DOC NOTES: MEDICAL INFORMATION: Prescriptions Given: Medications to Continue with No Changes Other Medications albuterol (albuterol HFA 90 mcg/inh MDI) 2 Puffs Inhalation every 4 hours as needed for wheezing. Refills: 0. escitalopram (escitalopram 10 mg Tab) 1 Tablets By Mouth every day. Refills: 0. ferrous sulfate (ferrous sulfate 325 mg Tab) 1 Tablets By Mouth every day. Refills: 1. meclizine (meclizine 25 mg Tab) 1 Tablets By Mouth 3 times a day as needed for dizziness. Refills: 0. multivitamin with minerals (One A Day Women's Complete oral tablet) 1 Tablets By Mouth every day. Refills: 0. naproxen (Naprosyn 500 mg Tab) 1 Tablets By Mouth 2 times a day as needed for pain. Refills: 0. naproxen (Naprosyn 500 mg Tab) 1 Tablets By Mouth 2 times a day as needed for pain. Refills: 0. naproxen (naproxen 500 mg Tab) 1 Tablets By Mouth 2 times a day. Take one tab by mouth two times a day. Refills: 0. ondansetron (Zofran 4 mg Tab) 1 Tablets By Mouth every 6 hours as needed Nausea. Take one tab by mouth every six hours as needed for nausea. Refills: 0. ondansetron (Zofran ODT 4 mg Tab-Dis) 1 Tablets By Mouth every 8 hours as needed Nausea/Vomiting. Refills: 0. oxybutynin (oxybutynin 5 mg ER Tab) 1 Tablets By Mouth every day. Refills: 0. pantoprazole (Pantoprazole [address] Tab) 1 Tablets By Mouth every day. Refills: 4. psyllium (Metamucil Unflavored Smooth Texture Sugar Free 3.4 g/5.4 g oral powder) 3.4 Gram By Mouth every day. daily- stop 2-3 days if diarrhea occurs. Refills: 1. sulfamethoxazole-trimethopr im (Bactrim D.S. 800 mg-160 mg Tab) 1 Tablets By Mouth 2 times a day. Refills: 0. tamsulosin (Flomax 0.4 mg Cap) 1 Capsules By Mouth every day. Refills: 0. tamsulosin (tamsulosin 0.4 mg Cap) 1 Capsules By Mouth every day. Refills: 0. PATIENT EDUCATION INFORMATION: Instructions: Follow up: DIAGNOSIS: Normal [facility] ED Patient Education Noteon 07-15-2024 ED Patient Education Note ED Patient Education Note Normal [facility] ED Patient Summaryon 024 ED Patient Summary ED Patient Summary [address] [address] Patient Discharge Instructions Person Information Name: JANA CABALLERO Age: 53 Years Arrival Date: 04/09/2024 15:04:44 Discharge Diagnosis: Abdominal pain; Constipation Primary Care Physician: Brigitte Carpenter Provider Information Primary Provider: Iban Haji MD Advanced Asset Management Analyst:Bhupendra Dale PA-C The exam and treatment you received in the Emergency Department were for an urgent problem and are not intended as complete care. It is important that you follow up with a doctor, nurse practitioner, or physician?s accounting administrative assistant for ongoing care. If your symptoms become worse or you do not improve as expected and you are unable to reach your usual health care provider, you should return to the Emergency Department. We are available 24 hours a day. JANA CABALLERO has been given the following list of patient education materials, prescriptions and follow-up instructions: Follow-up Instructions: With: Address: When: Brigitte Garcia [address] [place] [address] A, [address] [address] Business (1) In 3 days 04/12/2024 In the event that this physician does not participate in your insurance network, please consult with your insurance company to find a nearby participating provider. Patient Education Materials: Constipation, Adult; Abdominal Bloating A MESSAGE TO ALL PATIENTS REGARDING OPIOIDS PRESCRIPTION OPIOIDS: WHAT YOU NEED TO KNOW Prescription opioids can be used to help relieve tlisfomr-ly-mzdtpn pain and are often prescribed following a surgery or injury, or for certain health conditions. These medications can be an important part of the treatment but also come with serious risks. It is important to work with your healthcare provider to make sure you are getting the safest, most effective care. WHAT ARE THE RISKS AND SIDE EFFECTS OF OPIOID USE? Prescription opioids carry serious risks of addiction and overdose, especially with prolonged use. An opioid overdose, often marked by slowed breathing, can cause sudden . The use of prescription opioids can have a number of side effects as well, even when taken as directed: ? Tolerance?meaning you might need to take more of the medication for the same pain relief ? Physical dependence?meaning you have symptoms of withdrawal when a medication is stopped ? Increased sensitivity to pain ? Constipation ? Nausea, vomiting, and dry mouth ? Sleepiness and dizziness ? Confusion ? Depression ? Low levels of testosterone that can result in lower sex drive, energy, and strength ? Itching and sweating RISKS ARE GREATER WITH: ? History of drug misuse, substance use disorder, or overdose ? Mental health conditions (such as depression or anxiety) ? Sleep apnea ? Older age (65 years and older) ? Avoid alcohol while taking prescription opioids. Also, unless specifically advised by your health care provider, medications to avoid include: ? Benzodiazepines (such as Xanax or Valium) ? Muscle relaxants (such as Soma or Flexeril) ? Hypnotics (such as Ambien or Lunesta) ? Other prescription opioids KNOW YOUR OPTIONS Talk to your health care provider about ways to manage your pain that don?t involve prescription opioids. Some of these options may actually work better and have fewer risks and side effects. Options may include: ? Pain relievers such as acetaminophen, ibuprofen, and naproxen ? Some medication that are also used for depression or seizures ? Physical therapy and exercise ? Cognitive behavioral therapy, a psychological, goal-directed approach, in which patients learn how to modify physical, behavioral, and emotional triggers of pain and stress. IF YOU ARE PRESCRIBED OPIOIDS FOR PAIN: ? Never take opioids in greater amounts or more often than prescribed. ? Follow up with your primary health care provider. o Work together to create a plan on how to manage your pain. o Talk about ways to help manage your pain that don?t involve prescription opioids. o Talk about any and all concerns and side effects. ? Help prevent misuse and abuse o Never sell or share prescription opioids. o Never use another person?s prescription opioids. ? Store prescription opioids in a secure place and out of reach of others (this may include visitors, children, friends, and family). ? Safely dispose of unused prescription opioids: Find your community drug take-back program or your pharmacy mail-back program, or flush them down the toilet, following guidance from the Food and Drug Administration (www.fda.gov/Drugs/Resource sForYou). ? Visit www.cdc.gov/drugoverdose to learn about the risks of opioids abuse and overdose. ? If you believe you may be struggling with addiction, tell your health neonatal critical care nurse and ask for guidance or call (more content not included)... Normal [facility] ED Patient Summary ED Patient Summary [place] [id number] Patient Discharge Instructions Person Information Name: JANA CABALLERO Age: 53 Years Arrival Date: 04/09/2024 12:42:46 Discharge Diagnosis: Primary Care Physician: Brigitte Carpenter Provider Information Primary Provider: Advanced Asset Management Analyst:None The exam and treatment you received in the Emergency Department were for an urgent problem and are not intended as complete care. It is important that you follow up with a doctor, nurse practitioner, or physician?s accounting administrative assistant for ongoing care. If your symptoms become worse or you do not improve as expected and you are unable to reach your usual health care provider, you should return to the Emergency Department. We are available 24 hours a day. JANA CABALLERO has been given the following list of patient education materials, prescriptions and follow-up instructions: Follow-up Instructions: In the event that this physician does not participate in your insurance network, please consult with your insurance company to find a nearby participating provider. Patient Education Materials: A MESSAGE TO ALL PATIENTS REGARDING OPIOIDS PRESCRIPTION OPIOIDS: WHAT YOU NEED TO KNOW Prescription opioids can be used to help relieve axdjyktz-nn-sswrjl pain and are often prescribed following a surgery or injury, or for certain health conditions. These medications can be an important part of the treatment but also come with serious risks. It is important to work with your healthcare provider to make sure you are getting the safest, most effective care. WHAT ARE THE RISKS AND SIDE EFFECTS OF OPIOID USE? Prescription opioids carry serious risks of addiction and overdose, especially with prolonged use. An opioid overdose, often marked by slowed breathing, can cause sudden . The use of prescription opioids can have a number of side effects as well, even when taken as directed: ? Tolerance?meaning you might need to take more of the medication for the same pain relief ? Physical dependence?meaning you have symptoms of withdrawal when a medication is stopped ? Increased sensitivity to pain ? Constipation ? Nausea, vomiting, and dry mouth ? Sleepiness and dizziness ? Confusion ? Depression ? Low levels of testosterone that can result in lower sex drive, energy, and strength ? Itching and sweating RISKS ARE GREATER WITH: ? History of drug misuse, substance use disorder, or overdose ? Mental health conditions (such as depression or anxiety) ? Sleep apnea ? Older age (65 years and older) ? Avoid alcohol while taking prescription opioids. Also, unless specifically advised by your health care provider, medications to avoid include: ? Benzodiazepines (such as Xanax or Valium) ? Muscle relaxants (such as Soma or Flexeril) ? Hypnotics (such as Ambien or Lunesta) ? Other prescription opioids KNOW YOUR OPTIONS Talk to your health care provider about ways to manage your pain that don?t involve prescription opioids. Some of these options may actually work better and have fewer risks and side effects. Options may include: ? Pain relievers such as acetaminophen, ibuprofen, and naproxen ? Some medication that are also used for depression or seizures ? Physical therapy and exercise ? Cognitive behavioral therapy, a psychological, goal-directed approach, in which patients learn how to modify physical, behavioral, and emotional triggers of pain and stress. IF YOU ARE PRESCRIBED OPIOIDS FOR PAIN: ? Never take opioids in greater amounts or more often than prescribed. ? Follow up with your primary health care provider. o Work together to create a plan on how to manage your pain. o Talk about ways to help manage your pain that don?t involve prescription opioids. o Talk about any and all concerns and side effects. ? Help prevent misuse and abuse o Never sell or share prescription opioids. o Never use another person?s prescription opioids. ? Store prescription opioids in a secure place and out of reach of others (this may include visitors, children, friends, and family). ? Safely dispose of unused prescription opioids: Find your community drug take-back program or your pharmacy mail-back program, or flush them down the toilet, following guidance from the Food and Drug Administration (www.fda.gov/Drugs/Resource sForYou). ? Visit www.cdc.gov/drugoverdose to learn about the risks of opioids abuse and overdose. ? If you believe you may be struggling with addiction, tell your health neonatal critical care nurse and ask for guidance or call SAMHSA?S National Helpline at 8-163-387-HELP. v Source: US Department of Health and Human Services/Center for Disease Control & Prevention [facility] Medications Given: Medication Dose Route No medications found. Med (more content not included)... Normal [facility] HEMATOLOGYOrdered By: SYSTEM SYSTEM on 04-09-2024 Basophils/100 WBC (Bld) 2.1 % High 0.0 - 2.0 % [facility] Heme Basophils/Leukocytes Auto (Bld) [Pure # fraction] 0.1 E9/L Normal 0.0 - 0.2 E9/L [facility] Eosinophils (Bld) [#/Vol] 0.4 E9/L Normal 0.0 - 0.5 E9/L [facility] Eosinophils/100 WBC (Bld) 10.6 % High 0.0 - 8.0 % [facility] Comment on above: Result Comment: Regina pheral smear review performed. Erythrocyte distribution width (RBC) [Ratio] 15.5 % High 10.9 - 14.2 % [facility] Hematocrit (Bld) [Volume fraction] 29.6 % Low 34.0 - 46.0 % [facility] Hemoglobin (Bld) [Mass/Vol] 10.0 g/dL Low 12.0 - 16.0 gm/dL [facility] Lymphocytes (Bld) [#/Vol] 1.4 E9/L Normal 1.0 - 4.0 E9/L [facility] Lymphocytes/100 WBC (Bld) 33.6 % Normal 14.0 - 50.0 % [facility]e MCH (RBC) [Entitic mass] 27.7 pg Normal 27.0 - 34.0 pg [facility] Heme MCHC (RBC) [Mass/Vol] 33.9 g/dL Normal 31.4 - 36.0 gm/dL [facility]e MCV (RBC) [Entitic vol] 81.7 fL Normal 80.0 - 100.0 fL [facility] Monocytes (Bld) [#/Vol] 0.4 E9/L Normal 0.2 - 1.0 E9/L [facility]e Monocytes/100 WBC (Bld) 9.3 % Normal 4.0 - 14.0 % [facility] Neutrophils (Bld) [#/Vol] 1.8 E9/L Low 2.0 - 7.5 E9/L [facility] Neutrophils/100 WBC (Bld) 44.4 % Normal 36.0 - 75.0 % [facility] Platelet 207.0 E9/L Normal 150.0 - 500.0 E9/L [facility] Platelet mean volume (Bld) [Entitic vol] 7.9 fL Normal 6.4 - 10.8 fL [facility] RBC (Bld) [#/Vol] 3.6 E12/L Low 4.3 - 5.9 E12/L [facility] WBC corrected for nucl RBC Auto (Bld) [#/Vol] 4.1 E9/L Normal 4.0 - 11.0 E9/L [facility] Hep Func Panelon 04-09-2024 Albumin [Mass/Vol] 3.6 g/dL Normal 3.3-5.0 [facility] Comment on above: Performed By: #### 2 [id number] #### [facility] [address] [place] [address] Albumin/Globulin (S) [Mass conc ratio] 1.5 Normal 1.1-2.2 [facility] Comment on above: Performed By: #### 2 [id number] #### [facility] [address] [place] [address] ALP [Catalytic activity/Vol] 75 Int._Unit/L Normal 21-98 [facility] Comment on above: Performed By: #### 2 [id number] #### [facility] [address] [place] [address] ALT No additional P-5'-P [Catalytic activity/Vol] 17 Int._Unit/L Normal 6-46 [facility] Comment on above: Performed By: #### 2 [id number] #### [facility] [address] [place] [address] AST [Catalytic activity/Vol] 15 Int._Unit/L Normal 5-43 [facility] Comment on above: Performed By: #### 2 [id number] #### [facility] [address] [place] [address] Bilirubin [Mass/Vol] 0.3 mg/dL Normal 0.0-1.1 [facility] Comment on above: Performed By: #### 2 [id number] #### [facility] [address] [place] [address] Bilirubin.direct [Mass/Vol] 0.1 mg/dL Normal 0.0-0.4 [facility] Comment on above: Performed By: #### 2 [id number] #### [facility] [address] [place] [address] Bilirubin.indirect [Mass or moles/Vol] 0.2 mg/dL Normal 0.1-0.9 [facility] Comment on above: Performed By: #### 2 [id number] #### [facility] [address] [place] [address] Globulin (S) [Mass/Vol] 2.4 g/dL Normal 1.4-4.0 [facility] Comment on above: Performed By: #### 2 [id number] #### [facility] [address] [place] [address] Protein [Mass/Vol] 6.0 g/dL Normal 6.0-7.8 [facility] Comment on above: Performed By: #### 2 [id number] #### [facility] [address] [place] [address] Lipase Levelon 04-09-2024 Lipase [Catalytic activity/Vol] 48 U/L Normal 13-58 [facility] Comment on above: Performed By: #### 2 [id number] #### [facility] [address] [place] [address] UA with Cult Rflxon 04-09-20 24 Bilirubin Ql (U) Negative Normal Negative [facility] Comment on above: Performed By: #### 4 [id number] #### [facility] [address] [place] [address] Clarity (U) Clear Normal Clear [facility] Comment on above: Performed By: #### 4 [id number] #### [facility] [address] [place] [address] Color (U) Light-Yellow Normal Yellow [facility] Comment on above: Result Comment: Micr oscopic readings are only performed on those samples that meet specific criteria set forth by [facility]. Performed By: #### 4 [id number] #### [facility] [address] [place] [address] Glucose Ql (U) Negative Normal Negative [facility] Comment on above: Performed By: #### 4 [id number] #### [facility] [address] [place] [address] Hemoglobin Auto test strip (U) [Mass/Vol] Negative Normal Negative [facility] Comment on above: Performed By: #### 4 [id number] #### [facility] [address] [place] [address] Ketones Auto test strip Ql (U) Negative Normal Negative [facility] Comment on above: Performed By: #### 4 [id number] #### [facility] [address] [place] [address] Leukocyte esterase Auto test strip Ql (U) Negative Normal Negative [facility] Comment on above: Performed By: #### 4 [id number] #### [facility] [address] [place] [address] Nitrite Auto test strip Ql (U) Negative Normal Negative [facility] Comment on above: Performed By: #### 4 [id number] #### [facility] [address] [place] [address] pH (U) 5.5 [pH] Invalid Interpretation Code 5.0-9.0 [facility] Comment on above: Performed By: #### 4 [id number] #### [facility] [address] [place] [address] Protein Ql (U) Negative Normal Negative [facility] Comment on above: Performed By: #### 4 [id number] #### [facility] [address] [place] [address] Specific gravity (U) [Rel density] 1.031 Invalid Interpretation Code 1.005-1.030 [facility] Comment on above: Performed By: #### 4 [id number] #### [facility] [address] [place] [address] Urobilinogen (U) [Mass/Vol] Negative Normal Negative [facility] Comment on above: Performed By: #### [id number] #### [facility] [address] [place] [address] Type of Urine collection method Clean Catch Normal [facility] Comment on above: Performed By: #### [id number] #### [facility] [address] [place] [address] URINALYSISOrdered By: [employer] on 04-09-2024 Bilirubin Ql (U) Negative Normal Negativemg/ dL [facility] Auto SS Clarity (U) Clear (04/09/24 4:40 PM) Normal Clear [facility] Auto SS Color (U) Light-Yellow 1 (04/09/24 4:40 PM) Normal Yellow [facility] Auto SS Comment on above: Interpretive Data: M icroscopic readings are only performed on those samples that meet specific criteria set forth by [facility]. Glucose Ql (U) Negative Normal Negativemg/ dL [facility] UA Auto SS Hemoglobin Auto test strip (U) [Mass/Vol] Negative Normal Negativemg/ dL [facility] UA Auto SS Ketones Auto test strip Ql (U) Negative Normal Negativemg/ dL [facility] UA Auto SS Leukocyte esterase Auto test strip Ql (U) Negative Normal NegativeLeu /uL [facility] UA Auto SS Nitrite Auto test strip Ql (U) Negative Normal Negativemg/ dL [facility] UA Auto SS pH (U) 5.5 *NA* (04/09/24 4:40 PM) Invalid Interpretation Code 5.0 - 9.0 [facility] UA Auto SS Protein Ql (U) Negative Normal Negativemg/ dL [facility] UA Auto SS Specific gravity (U) [Rel density] 1.031 *NA* (04/09/24 4:40 PM) Invalid Interpretation Code 1.005 - 1.030 [facility] UA Auto SS Urobilinogen (U) [Mass/Vol] Negative Normal Negativemg/ dL [facility] UA Auto SS URINALYSISOrdered By: Bhupendra Dale on 04-09-2024 UA Spec Desc Clean Catch (04/09/24 4:40 PM) Normal [facility] UA Auto SS Work Phone: XR Abdomen 1 Viewon 04-09-20 24 XR Abdomen 1 View Exam Date/Time: 04/09/2024 16:07 EDT Reason for Exam: Abdominal pain Report IMPRESSION: NO ACUTE INTRA-ABDOMINAL PROCESS IDENTIFIED, BY PLAIN RADIOGRAPHY. EXAM: XR Abdomen 1 View DATE: 04/09/2024 3:54 PM CLINICAL HISTORY: Abdominal pain. COMPARISON: CT abdomen and pelvis 03/09/2024. TECHNIQUE: Two supine radiographs of the abdomen and pelvis were obtained. FINDINGS: There is a nonobstructive bowel gas pattern. Mild gas and stool are noted in the colon and rectum. There is no evidence of significant constipation, pneumoperitoneum, or other significant changes identified. Small right upper pole renal calculi, right renal capsular calcifications, developmental elongation of the right hepatic lobe, mild S-shaped scoliosis and moderate and degenerative changes of the lumbar spine are again noted. The visualized lung bases are clear. Ordering Provider: Bhupendra Dale FINAL REPORT Dictated: 04/09/2024 4:29 pm Jean Claude Traylor MD Signed (Electronic Signature): 04/09/2024 4:29 pm Signed by: Jean Claude Traylor MD Transcribed by: JG Technologist: MICHA Technical Comments Radiation Dose: Ka,r in mGy = na DAP = na Normal [facility] eGFRon 04-09-2024 eGFR 103 mL/min/1.73 m2 Normal >=59 [facility] Comment on above: Order Comment: Order added by Discern Expert. Performed By: #### [id number] #### [facility] [address] [place] [id number] Discharge Instructionson Discharge Instructions [id number] Normal [facility] ED Clinical Summaryon 2023 ED Clinical Summary (Inserted Image. Tammy ble to display) [address] [address] ED Clinical Summary Person Information Name: JANA CABALLERO [facility] Age: 53 Years : 1970 Sex: Female Language: Syrian PCP: Brigitte Carpenter Marital Status: Phone: [phone] Visit Id: Visit Reason: Headache; Vomiting; Nausea; MIGRAINE,VOMTING Speciality: Acuity: 4 Enc Type: Emergency Med Service: Emergency Arrival: 03/19/2024 23:34:53 Discharge: 03/20/2024 01:28:53 LOS: 000 01:54 Checkin: 03/19/2024 23:34:53 Checkout: 03/20/2024 01:28:53 Dispo Type: Home (Routine DC) EVENTS: Event Name Event Status Request Date/Time Start Date/Time Complete Date/Time Arrive Complete 03/19/2024 23:34:53 03/19/2024 23:34:53 03/19/2024 23:34:53 Document Home Meds Request 03/19/2024 23:34:53 Triage Complete 03/19/2024 23:34:53 03/19/2024 23:41:38 03/19/2024 23:41:38 Registration Complete 03/19/2024 23:37:41 03/19/2024 23:37:41 03/19/2024 23:37:41 Reg Complete Request 03/19/2024 23:37:41 Reg Bed Request Complete 03/19/2024 23:37:42 03/19/2024 23:37:42 03/19/2024 23:37:42 Bed Assign Complete 03/19/2024 23:39:51 03/19/2024 23:39:51 03/19/2024 23:39:51 Dr Exam Complete 03/19/2024 23:39:51 03/19/2024 23:40:07 03/19/2024 23:40:07 RN Exam Complete 03/19/2024 23:39:51 03/20/2024 00:18:15 03/20/2024 00:18:15 Registration Request 03/19/2024 23:40:07 Meds Admin Complete 03/19/2024 23:46:21 03/20/2024 00:12:30 Discharge Complete 03/20/2024 01:01:51 03/20/2024 01:29:01 03/20/2024 01:29:01 Transfer Complete 03/20/2024 01:29:01 03/20/2024 01:29:01 03/20/2024 01:29:01 ADDRESS: [address] [place] [id number] PHYS DOC NOTES: MEDICAL INFORMATION: Prescriptions Given: Medications to Continue with No Changes Other Medications albuterol (albuterol HFA 90 mcg/inh MDI) 2 Puffs Inhalation every 4 hours as needed for wheezing. Refills: 0. escitalopram (escitalopram 10 mg Tab) 1 Tablets By Mouth every day. Refills: 0. ferrous sulfate (ferrous sulfate 325 mg Tab) 1 Tablets By Mouth every day. Refills: 1. meclizine (meclizine 25 mg Tab) 1 Tablets By Mouth 3 times a day as needed for dizziness. Refills: 0. multivitamin with minerals (One A Day Women's Complete oral tablet) 1 Tablets By Mouth every day. Refills: 0. naproxen (Naprosyn 500 mg Tab) 1 Tablets By Mouth 2 times a day as needed for pain. Refills: 0. naproxen (Naprosyn 500 mg Tab) 1 Tablets By Mouth 2 times a day as needed for pain. Refills: 0. naproxen (naproxen 500 mg Tab) 1 Tablets By Mouth 2 times a day. Take one tab by mouth two times a day. Refills: 0. ondansetron (Zofran 4 mg Tab) 1 Tablets By Mouth every 6 hours as needed Nausea. Take one tab by mouth every six hours as needed for nausea. Refills: 0. ondansetron (Zofran ODT 4 mg Tab-Dis) 1 Tablets By Mouth every 8 hours as needed Nausea/Vomiting. Refills: 0. oxybutynin (oxybutynin 5 mg ER Tab) 1 Tablets By Mouth every day. Refills: 0. pantoprazole (Pantoprazole [address] Tab) 1 Tablets By Mouth every day. Refills: 4. psyllium (Metamucil Unflavored Smooth Texture Sugar Free 3.4 g/5.4 g oral powder) 3.4 Gram By Mouth every day. daily- stop 2-3 days if diarrhea occurs. Refills: 1. sulfamethoxazole-trimethopr im (Bactrim D.S. 800 mg-160 mg Tab) 1 Tablets By Mouth 2 times a day. Refills: 0. tamsulosin (Flomax 0.4 mg Cap) 1 Capsules By Mouth every day. Refills: 0. tamsulosin (tamsulosin 0.4 mg Cap) 1 Capsules By Mouth every day. Refills: 0. PATIENT EDUCATION INFORMATION: Instructions: Migraine Headache Follow up: With: Address: When: Brigitte Davis [facility], [address], [place] [phone] Independent IP (1) In 3 days DIAGNOSIS: Migraine headache Normal [facility] ED Note-Physicianon 03-20-20 ED Note-Physician ED Note-Physician Basic Information Time Seen: Lc Ralph Sharon 03/19/2024 23:40 Chief Complaint frontal headache today. nausea and vomiting. light sensitivity History of Present Illness HPI: Patient is a 53-year-old female with past medical history of anxiety, kidney stones, vertigo, migraines who presents the ED for migraine headache. Patient states that since this afternoon she has slowly developed a frontal headache that she describes as similar to her previous migraines. She states that she has some slight light sensitivity with this as well as nausea and vomiting. She denies any fever or chills. She denies any vision changes, numbness, weakness. She has tried oral Tylenol at home with minimal relief. ROS: Pertinent review of systems conducted and is negative except as noted above. Physical exam: General: nontoxic appearing and in no distress HEENT: Mucous membranes moist Neuro: awake and alert. Cranial nerves II through XII are intact. Gross motor sensation to all 4 extremities intact. Neck: supple, trachea midline Card: Heart regular rate and rhythm no murmur Resp: Lungs clear to auscultation no wheeze or rhonchi Abd: Soft and nondistended. No tenderness to palpation with no rebound or guarding. Ext: No gross deformity or edema Physical Exam Vitals & Measurements T: 36.8 ?C(Oral) HR: 83(Peripheral) RR: 16 BP: 134/78 SpO2: 95% HT: 170 cm WT: 94.2 kg BMI: 32.6 Medical Decision Making MEDICAL DECISION MAKING Number and Complexity of Problems Differential Diagnosis: [] [facility] Data External documents reviewed: N/A My EKG interpretation: Noted in chart if applicable My CT interpretation: N/A My X-ray interpretation: Noted in chart if applicable My Ultrasound interpretation: N/A Decision rules/scores evaluated: N/A Discussed with: N/A Treatment and Disposition ED Course: Patient is well-appearing no distress. She is neurologically intact to my exam. Her symptoms are consistent with her previous migraines. Will give her IV fluids as well as Toradol Reglan and Benadryl for this. On reassessment after medications patient states her headache is significant proved and she is now just tired and ready to go home and get some sleep. We discussed the plan of following with her primary care physician. Discussed return precautions. Patient states understanding agreement this plan is discharged stable condition. Shared decision making: As above Code status: N/A Assessment/Plan Migraine headache (G43.909: Migraine, unspecified, not intractable, without status migrainosus) Orders: diphenhydrAMINE, 25 mg = 0.5 mL, Injection, IV Push, Once, Stop date 03/19/24 23:46:00 EDT, STAT, Start date 03/19/24 23:46:00 EDT, 03/19/24 23:46:00 EDT ketorolac, 15 mg = 1 mL, Injection, IV Push, Once, Stop date 03/19/24 23:45:00 EDT, STAT, Start date 03/19/24 23:45:00 EDT, 03/19/24 23:45:00 EDT metoclopramide, 10 mg = 2 mL, Injection, IV Push, Once, Stop date 03/19/24 23:46:00 EDT, STAT, Start date 03/19/24 23:46:00 EDT, 03/19/24 23:46:00 EDT Sodium Chloride 0.9% intravenous solution, 1,000 mL, Soln-IV, IV, Once, Stop date 03/19/24 23:46:00 EDT, STAT, Start date 03/19/24 23:46:00 EDT, Infuse over 61, minute(s) Medications Administered Given diphenhydrAMINE 50 mg/mL Inj, 25 mg, IV Push ketorolac 15 mg/mL Inj, 15 mg, IV Push metoclopramide 5 mg/mL Inj, 10 mg, IV Push NS 1000 ml Bolus, 1000 mL, IV Disposition Plan Discharge Prescription List Prescriptions No active prescription medications Follow-up With When Contact Information Brigitte Garcia In 3 days [address], [address] [facility] [place] [id number] [facility] (1) Additional Instructions: Patient Education Migraine Headache Problem List/Past Medical History Ongoing Abdominal fullness Abdominal pain Acute constipation Allergic rhinitis Anemia Bronchitis Discoloration of skin of toe Dizziness E-coli UTI Exposure to COVID-19 virus Fatigue Flank pain Former smoker Frequency of urination LALO (generalized anxiety disorder) Gastroesophageal reflux disease Hematuria Hiatal hernia History of cervical cancer History of kidney stones Hydronephrosis with urinary obstruction due to ureteral calculus kidney stones Malignant tumor of cervix Mild recurrent major depression Nausea in adult Nicotine dependence, cigarettes, in remission Nocturia Onychia, toe Onychomycosis Other urethral stricture, female Paresthesia Recurrent headache Renal calculus, right Screening for colon cancer Screening for diabetes mellitus Screening for lipid disorders Smoker Vertigo Wellness examination Historical Anemia due to unknown mechanism Cervical cancer Chemotherapy Hernia migraines Radiation Procedure/Surgical History Cystoscopy (03/07/2020), :LEEP, exam under anesthesia (10/06/2016), hernia repair (11/25/2015), incisional hernia repair (05/13/2015), (2003), Tubal ligati (more content not included)... Normal [facility] Comment on above: Result Comment: Elec tronically Signed By: Ralph Platt DO\.br\Date and Time Signed: 03/20/24 01:02 EDT ED Patient Education Noteon 03-20-2024 ED Patient Education Note Neurology Migraine Headache A migraine headache is an intense, throbbing pain on one side or both sides of the head. Migraine headaches may also cause other symptoms, such as nausea, vomiting, and sensitivity to light and noise. A migraine headache can last from 4 hours to 3 days. Talk with your doctor about what things may bring on (trigger) your migraine headaches. What are the causes? The exact cause of this condition is not known. However, a migraine may be caused when nerves in the brain become irritated and release chemicals that cause inflammation of blood vessels. This inflammation causes pain. This condition may be triggered or caused by: ? Drinking alcohol. ? Smoking. ? Taking medicines, such as: ? Medicine used to treat chest pain (nitroglycerin). ? control pills. ? Estrogen. ? Certain blood pressure medicines. ? Eating or drinking products that contain nitrates, glutamate, aspartame, or tyramine. Aged cheeses, chocolate, or caffeine may also be triggers. ? Doing physical activity. Other things that may trigger a migraine headache include: ? Menstruation. ? . ? Hunger. ? Stress. ? Lack of sleep or too much sleep. ? Weather changes. ? Fatigue. What increases the risk? The following factors may make you more likely to experience migraine headaches: ? Being a certain age. This condition is more common in people who are 25?55 years old. ? Being female. ? Having a family history of migraine headaches. ? Being . ? Having a mental health condition, such as depression or anxiety. ? Being obese. What are the signs or symptoms? The main symptom of this condition is pulsating or throbbing pain. This pain may: ? Happen in any area of the head, such as on one side or both sides. ? Interfere with daily activities. ? Get worse with physical activity. ? Get worse with exposure to bright lights or loud noises. Other symptoms may include: ? Nausea. ? Vomiting. ? Dizziness. ? General sensitivity to bright lights, loud noises, or smells. Before you get a migraine headache, you may get warning signs (an aura). An aura may include: ? Seeing flashing lights or having blind spots. ? Seeing bright spots, halos, or zigzag lines. ? Having tunnel vision or blurred vision. ? Having numbness or a tingling feeling. ? Having trouble talking. ? Having muscle weakness. Some people have symptoms after a migraine headache (postdromal phase), such as: ? Feeling tired. ? Difficulty concentrating. How is this diagnosed? A migraine headache can be diagnosed based on: ? Your symptoms. ? A physical exam. ? Tests, such as: ? CT scan or an MRI of the head. These imaging tests can help rule out other causes of headaches. ? Taking fluid from the spine (lumbar puncture) and analyzing it (cerebrospinal fluid analysis, or CSF analysis). How is this treated? This condition may be treated with medicines that: ? Relieve pain. ? Relieve nausea. ? Prevent migraine headaches. Treatment for this condition may also include: ? Acupuncture. ? Lifestyle changes like avoiding foods that trigger migraine headaches. ? Biofeedback. ? Cognitive behavioral therapy. Follow these instructions at home: Medicines ? Take eepu-fte-xpkwnif and prescription medicines only as told by your health care provider. ? Ask your health care provider if the medicine prescribed to you: ? Requires you to avoid driving or using heavy machinery. ? Can cause constipation. You may need to take these actions to prevent or treat constipation: ? Drink enough fluid to keep your urine pale yellow. ? Take auvm-kfy-oeyehzf or prescription medicines. ? Eat foods that are high in fiber, such as beans, whole grains, and fresh fruits and vegetables. ? Limit foods that are high in fat and processed sugars, such as fried or sweet foods. Lifestyle ? Do not drink alcohol. ? Do not use any products that contain nicotine or tobacco, such as cigarettes, e-cigarettes, and chewing tobacco. If you need help quitting, ask your health care provider. ? Get at least 8 hours of sleep every night. ? Find ways to manage stress, such as meditation, deep breathing, or yoga. General instructions ? Keep a journal to find out what may trigger your migraine headaches. For example, write down: ? What you eat and drink. ? How much sleep you get. ? Any change to your diet or medicines. ? If you have a migraine headache: ? Avoid things that make your symptoms worse, such as bright lights. ? It may help to lie down in a dark, quiet room. ? Do not drive or use heavy machinery. ? Ask your health care provider what activities are safe for you while you are experiencing symptoms. ? Keep all follow-up visits as told by your health care provider. This is important. Contact a health care provider if: ? You develop symptoms that are different or (more content not included)... Normal [facility] ED Patient Summaryon 024 ED Patient Summary (Inserted Image. Tammy ble to display) [address] [address] Patient Discharge Instructions Person Information Name: JANA CABALLERO Age: 53 Years Arrival Date: 03/19/2024 23:34:53 Discharge Diagnosis: Migraine headache Primary Care Physician: Brigitte Carpenter Provider Information Primary Provider: Ralph Platt DO Advanced Asset Management Analyst:None The exam and treatment you received in the Emergency Department were for an urgent problem and are not intended as complete care. It is important that you follow up with a doctor, nurse practitioner, or physician?s accounting administrative assistant for ongoing care. If your symptoms become worse or you do not improve as expected and you are unable to reach your usual health care provider, you should return to the Emergency Department. We are available 24 hours a day. JANA CABALLERO has been given the following list of patient education materials, prescriptions and follow-up instructions: Follow-up Instructions: With: Address: When: Brigitte Garcia [address], [address], [place] [phone] Business (1) In 3 days In the event that this physician does not participate in your insurance network, please consult with your insurance company to find a nearby participating provider. Patient Education Materials: Migraine Headache A MESSAGE TO ALL PATIENTS REGARDING OPIOIDS PRESCRIPTION OPIOIDS: WHAT YOU NEED TO KNOW Prescription opioids can be used to help relieve fznrevws-pm-fbwlyl pain and are often prescribed following a surgery or injury, or for certain health conditions. These medications can be an important part of the treatment but also come with serious risks. It is important to work with your healthcare provider to make sure you are getting the safest, most effective care. WHAT ARE THE RISKS AND SIDE EFFECTS OF OPIOID USE? Prescription opioids carry serious risks of addiction and overdose, especially with prolonged use. An opioid overdose, often marked by slowed breathing, can cause sudden . The use of prescription opioids can have a number of side effects as well, even when taken as directed: ? Tolerance?meaning you might need to take more of the medication for the same pain relief ? Physical dependence?meaning you have symptoms of withdrawal when a medication is stopped ? Increased sensitivity to pain ? Constipation ? Nausea, vomiting, and dry mouth ? Sleepiness and dizziness ? Confusion ? Depression ? Low levels of testosterone that can result in lower sex drive, energy, and strength ? Itching and sweating RISKS ARE GREATER WITH: ? History of drug misuse, substance use disorder, or overdose ? Mental health conditions (such as depression or anxiety) ? Sleep apnea ? Older age (65 years and older) ? Avoid alcohol while taking prescription opioids. Also, unless specifically advised by your health care provider, medications to avoid include: ? Benzodiazepines (such as Xanax or Valium) ? Muscle relaxants (such as Soma or Flexeril) ? Hypnotics (such as Ambien or Lunesta) ? Other prescription opioids KNOW YOUR OPTIONS Talk to your health care provider about ways to manage your pain that don?t involve prescription opioids. Some of these options may actually work better and have fewer risks and side effects. Options may include: ? Pain relievers such as acetaminophen, ibuprofen, and naproxen ? Some medication that are also used for depression or seizures ? Physical therapy and exercise ? Cognitive behavioral therapy, a psychological, goal-directed approach, in which patients learn how to modify physical, behavioral, and emotional triggers of pain and stress. IF YOU ARE PRESCRIBED OPIOIDS FOR PAIN: ? Never take opioids in greater amounts or more often than prescribed. ? Follow up with your primary health care provider. o Work together to create a plan on how to manage your pain. o Talk about ways to help manage your pain that don?t involve prescription opioids. o Talk about any and all concerns and side effects. ? Help prevent misuse and abuse o Never sell or share prescription opioids. o Never use another person?s prescription opioids. ? Store prescription opioids in a secure place and out of reach of others (this may include visitors, children, friends, and family). ? Safely dispose of unused prescription opioids: Find your community drug take-back program or your pharmacy mail-back program, or flush them down the toilet, following guidance from the Food and Drug Administration (www.fda.gov/Drugs/Resource sForYou). ? Visit www.cdc.gov/drugoverdose to learn about the risks of opioids abuse and overdose. ? If you believe you may be struggling with addiction, tell your health neonatal critical care nurse and ask for guidance or call SAMHSA?S National Helpline at 6-578-335-HELP. v Source: [place] Department (more content not included)... [facility] Consent for Treatmenton 02-25 Consent for Treatment [id number] [facility] Coding Summary.on 03-15-2024 Coding Summary. NAYMXhwb12GGc1fOp+PG hlYWQ+P I9YXZDsX37mdLEnqB6pD4SPITpU RnfdFVSQOLsRDwOyyaIoDI2whRL jZXJu IC8+QA1nAJBiGlkzlWTyt9Z9vHM 4A10kpk6bBDrczNC9EEDqHsWikl kxi7gyhDh7MGugRxpfRnSn YPWgoA73OBR2qU94Ek21kQJiqJO wx7jppHp5TaTaAMYqIUN5qPncQO ffc6JaDCBxX09ecSVcl4B0 SRKxjJiuoWImDxUaeSD6oG3gVLn srghev9eajdohFaw4wj85vXVtg1 O4eVC3V8FksvG7ANHphMLb VnlzdHNDoP2ankfyw7gcoflsXvB uDKMpGYn7LQp0LOWwfBcyXhRzGA 81GHG7OYDoggRvY3OeQJSp rCuyQeX0o4H4Io1DO9LMZskyQ0O NTUFSWTwvdGQ+RN58nn10E2VhNj hbZnr5ZLSlHIE1cUC6mP2e RZXiUEyyn1P7rTO8H2QetpQaxy9 jn3idMSWcSWwrG20jzZHfd0E0SW JrvKC4GEEvuHytCmXjyJ40 Oyc+QEBkmCvac6VfFfmzg7drx2g fuTy0OpjjGRXwmoCzbMdiJXU2k1 PsEy9oPZRajIV6vOG1vI7h ZkWxXnQ8TKgdQ159IbGsyWTjNqj vH87nY7KusWV+IELwUfk6EIGmjA eaBL3rZ6UbXTVlydfsaCZw jHztET7rJWKogfdwDBXtsD8zIQT aM3n3PzKkMkX1ANmzF4AvGZJqga kkOe62eZ0xKwSlTzU7XUoq M9IbpwK5XLPibNTdZWfxIYC4Z96 nr6Z1HIGiNFGcVUA9wWK8rC4ldM lnbjogbGVmdDsgdmVydGlj KZrxWVfhV691LYHbuEdhWkLwVTn uZyBEYXRlOiAgMDYvMjAvMjAyND wvdGQ+NEYmSDI6sYclZSMi uFJuXFxfUn0tjSckbNpcWO6vAZF zrijuAWJolK7kSSEqzYOicJhnTU 3vGQFvbjvwy137QkFzKMM1 KUQkbXBnY2ZyyW8hCyEtHAIeJTH nY0QxzQHkVAfnW259IPhcHlO0RX HpwbXlE9ElZGZpwStuYbU5 f4J7Wg4Kb9AutbkzU1QolXNtCkS wTkroWUy4O5OdXoihvCU+PC90YW FrOW98CGr0SPC0hHgpSInb WETbF5RzkR6lTbMhUVTnZMQwQvq +PHRhYmxlIHdpZHRoPScxMDAlJy ZfsSgxMC6dAq5wZGOeYNIs pWzgjSQuNoFom3qzYSWdVFllEX2 yhWlmC4LfvWV2ORIbl4s0Lu81Z9 0vE9WscSC+BRXolTH9cNC4 uQ1jGvNoVuC9DSlhM185TlRsmQN eJzyyz9gzv8xaoCx4OkH0PIMzyf EdkDzrFYC8q5XeLd09K16j IHdpZHRoPSIxNSUiIHZhbGlnbj0 vbS8oVf3+CSFwdIO6aES0nF5lBf UhPuP0WBwzI767NqXeyLDf Uqbys3jjj0bkkJc1JvMkVUKhtdC rgOtaIHW9n8WdEg87E8AeqCydx6 ZyOpz2qv33hKJeu1Q2xBI2 F0PfATRdaghcyXDxuQapRY8dROH yxuigNHIisA4hACIuN4l7YyIsCs B9HNbjE8VbteF9JEIhlOEg MBHluUQIeT7nfjwqj6icizawExV eLHOqZNy1DMd8PQUhvYjtFcCfZH H4YaO3KMO7cIKkvO1syGqf zwxcsF5oMia+BYQ9lWHjdYAQLH4 lOjwvdGQ+JHKlDCH2uVjtVLioJL WteV8kECFnG8n8BwNlPbP4 IByhA9RvwmH6CTPpyNVjJSHkeXZ HiG0giysle9ifjhkxZiXhJZLoAA t1IJs0OOVpjCfeIdPyHUH9 PfN6KMX5uSArbM9grMwnvnohsZ4 wOyc+MvvzzBvsJPG7QZd6E1QaWd h5LKVuaXrrAI8bnYUgXMri Nh8rcTbnsBcwWU0gEWWnbyypx65 9NtSku2ysVZXsyGVtFWvoKVR8N5 9pd1C0IIOwCVZyHJV7rGW4 fG9jxMhanvmpyYExyDmtmrJcqZw kTFjtRLrnR507UYKuqZztDpYaOH e2Y3RqJkg4RSZrzKmdXX0p pKEcVQulFm6plYdyeHzdTR4tVOG cxpthc935HfHxj5vmQQUxkODaXH aeHCD1D07ss1C7EIErEEMr ZDL8vBY1fI4awKvexmqmeSPlhYw obvHncZwgZIexFTgpA827THHuoG rgTbWhcPs6L3WiYkn9CYYv xIzjTQ6msHAnANyfPp7ccJmxhMo jLA0yYYMtryssg251BhPku3kxFK VgjGAdXJdaDMH8W76xm2C6 CSAcNGNvDPH6iQG9tI5hfNujmcm gbGVmdDsgdmVydGljYWwtYWxpZ2 46IHRvcDsnPlBhdGllbnQg VJfyIYc0J8BvRlehfEI+WV82WLS iGK43eLBzsRWty1omxPz4HoClWS IeTZG6uQsvKVset0FvZZMi B88jdMNjp5W1JTTjaNgqwQLwCnV iaZQ9bZ1bVXwwgkqwu9ahsxlcPy nzx2htnv89eX36R60gBXnv DVEdCLBeUNYuLYMdlRtfvl7fjR6 wIi8+JWIdbGW1eSI0oH2mORPgOj U6AIqwX258MiXqsUQtRjbm y8tlm9rfgFl0OfR9WCCojiDmdSy kUQR1n8RyNh31P65iCBjwHKAnXT ExLORtMVSegHjoma9niS9v Ii8+KNLnoCF7uZC7cF3rRbFtBiC 6MYdrK915XlKzpHAoVxmoM39tR0 JvdXA+CLXiEbi8JLJjeIft OD9yfZSgBQzaNp4yJJA6ByEbDvJ cKQnhB8RxDLUkopjofpuecKB3RF HjTZPftG56Mz4nhEdfTDLx wRERcM0ocvuja5ttfqcoGiLoVRB gDTg1LMy1ZBOxqCdlIdKsAJP9Gm P4SEQ1rYAfnG4exMxckixy xJ8cX2JhGHQlcvpdOg70kD0xVeN eBrP9DVfwWob+GT7QRPOODHmuLT RWJYNRCB18NH35cKTak4K7 pZT2M6GjKQXqhnjfuflbxXM9GBW dJHHkeW48mWQmLNzlBp3kq1A7j7 43WHRjAKUugL29Nz9voOdf EVJvcYZLeG1xswtql8octwtdGtO fBEOeDJw8OWl4WMVhdJrxXiEbOY W0QyP3LVE2dKBzyT1lcAjz xcgskZ5lElg+MPHhYjOwDMu3ZMy vdGQ+WNJrDRF7aOhkYYbkRLHitT 3dMZUxL9t6JhTvBkI7TLzy S5XxPBBamoqpCh01cZ1oWsIsNdC 1UFhiB7QwvgD9EMAllJZqMLdsKJ U3T63aw2J4WJEiBFWgUOG2 bTO1qA0vdPsvvrgqpMTklXnkykR ljWyiOFuxGZjdB733NXSjsUmtTe RsZIyaNWLdOR98HN23aGCb e4C6hCZ7O0UxXXVgxgqmgsbofUU 2ZCGjXECmeW54zDKhAPpfNm9cx6 W6r053MDFyDUGowY95Ky7n uCpeWJQyoFOOcV2sudnco6xdqqg aJyNlLOJdVVb9RGk8DJPbxFneZl QhAAA1JlD3YXB0uXXftI0l dUzfvvjiqZ0oRcu+RmVtYWxlPC9 7RK16pKLrc6X9mEM0M0NnSKXgrc yhrcsfgOT9YXSoBWBzcF41 bUAhEXvyIi1kl2G3t630KUPuHVW nnX84Rt4viDdfFQTjkXFNuK6six vzc2vaiwdgRlQhTLQgXQi6 ZGe7EUThcSnmHpOdWFC4XqF5CCU 9fWMaiI0gyHywxsqqqM3zHmz+RW 5hjksdiwZ0UD03CZ41I1Ik PjwvdGFibGU+PHRhYmxlIHdpZHR kDFiiACTzGnEpqXrrZL0jVu2pSL JgICXhtPtxkYArWbIuy6vo IRIkLFzdPW5dmGzzB5OmxJZ6PME sd7s4Wt14T31yR1HsqBQ+PGNvbC U6jSO8hD8vPbRdWsN2TOce I599TdIqnZIjSykzo7lty5pxtHg 4AvCfXORjpsKepSvnEFE3a1YnLr 10J73lPXguHWRnPYXqAQGx KQKatRpojr8yhW8oTw5+PGNvbCB 3uCF1pN5dPhXbFsE3OCtvE121Qr EnmNByTghjA60fX7SxhUD+ YQEuRju1GSJbrVacBC2ncVVuWOz hPr0lODB1CyBhSzPuNFziR5RzAT VwkmlbqiknvRF2NPWcWUBp eC04So6fxTfjGj8fPQQdUMF6ZXO vkDZrI4PetD9qVrPuBMAnEBNiN9 HttEKoQXmeC497ATnqRyE2 AGMhicXbV4BsRXRdnXtdXtI6v7G 8Ku3CuSgddEQkDP4wLnKlWEz8M7 QvYcq4CEVqdZyrGL3etKGj UYznIi5buXejkNqoGR5iYUUpece gr829QkUtv5cmEWUcjXIcTSdqKL P1V40pq8W2TXIwEXMxLFP9 cZY3zU6tpNgfzrankQMqoUztooL luVjmEDduIEfrR417WSTkzCzmAp MFXrk6J7EfQrc8WJLaqWrv EF9ttKKiSOlmSv8evZezxCrpBH8 fEHUsztaeh045ZnOmv9hkIZRdrJ DwLIfcVCN1Y90ri1Z1ICRn UHLmGDW1qIC4iL7etFrshzizzSL nwXjvauTcySphPEozQYhiD072NO RdcLzeDe7SEnk4A3BpAuv4 OENmxUcrZN4teRMhLKhgSd4xnIn kpWfbOE4zJDOxqymlx492GrRqt5 bgBMSiwURpGXprPFR1M15b c6H9SWGoGTPfMEG7pZE3bF6sjAb nbjogbGVmdDsgdmVydGljYWwtYW waM886EIOaoIwfXvFlzBJs OjwvdGQ+VJ52pc35I5YuRmnvLkd 8PAScZEZ1qPY5rI3vTJJnGMzvo6 P2rYB9I3SncmMous2yc1tv VHLoPDjwY27pl (more content not included)... Normal [facility] EMS Documentationon 03-15-20 EMS Documentation Please click on link to see report [id number] RKNuZsZRYwZtpUKXjaH97ncHNjd HNbMTczNyAwIFIgMTYyNSAwIFIg MiAwIFIgMTYyNiAwIFIgMTczOCA wKWOnI4Ivu8CFk5aqJP2iKOItEV L1RDFcHAA4WCTsTC0lM5DosFNmD CX3OlJbSLUmZMVlZSS7WbWaNYPp JUBxbBXPb2xoBU1jUKYtVDC5BNT lVAE1IUEbVE5kMUiiGR0jUYS1CE 9QYXJlbnQgMTUzNiAwIFIvUmVzb 4SmC4MrTBczV61dm7MRzZJqXYr3 E1TTPQCzBGJwSEHhIm3+A5AzcvI 1KG2JIGAtQWL6EPEaYERhBXAtIA S5RNJeVTUMRu1xVDTlZ2GenLoyD EUWI1LniLMyH8G4lOlXpSF8TEKs JwTjKZPtTy4PA5SfUPR6EFO2DaV hWGRLVe7jIe45ATByERDmU9IllU T4NFPsBE41eeL0P9Y2yFDkANBlT Q7IZCJmJ7K+PgplbmRvYmoKMiAw ZM3bgjd0JK4PFW7gdCbbPZs2CZY +LjS6kyMbuEokO8MzDOThLGNpTH EyhnfvVPE0LtA5CZZiOeQrQwxzG rD2ZLVlLPknQgNbAILilciwQHG9 UdIcPnH8DVM1Ep73SxIrKFMnJkT 7JVFcXwQMCRp3WcTgQOT2YtIrYd F3JVC8LP49BKOcSJCdLxC1NLZhI xKDIcS1Osy1ZaV1TnFeDiF1HHJ2 HM58KPPwGTHqZkC2XIHkZdJCUUV lGiYyAaU8TGBsOhF3CTThLhT3YO 4xJW27WkQnBLmyWyLuDFj6KB83J rhgKB63WLQaSXAuIfw1RTSzSeGN RDy9SyLoVXK5CIWwXnN0YFLkImP 5KX6kEE26FkPxXMqzEiN2Pg6qEH NeEuH3SvH5IETlKyX0GUCxBtYdN YuxpeNHBixhLFDyYOX8MMi2UC77 ZaofLE55LLInDFNvViz4DBCxGfJ GBxN3Apm0BeV8YPHmKfB9VFMjCf E9TH7vKH89SgMqKUooVnLxJPzuH k69QsLtLDGpLrA6WqJhQM11YBNq bwIOJjkoRFW1BVqvNzMlABSaJn7 fMRVnANGrJyZ5MJCjCiCUKHBcQd SsVrtpRaYmFfS6JVYfAZS4DbX8B VAaVNexAaTzSp17RlkqRiRkWrkd YyQrIjB1CVRvLBY1NpW8XDCpOGp kTkVsTXA6UAJrS20CDLHuXaK5BJ goZo3uAzkpPTVbPqr9IeKkQZSuU Bq3WJHrPjBOFIQfi6ZoMwZmAjD8 NSM1JjWyRtW3OJAvSM16ExVyEDX nDpY6AFPvZyYTDPPrAtK9FgR7Nx P9BYNtTchbPX2uDwP9ARZdVZqwK zFrRKA8AB83LROxJCLnNeY2SuDd OS54EWYxqiDBCireJCS4ZZuxXGA 7FQJnOeK7BQ3nIM5lKFvlmvNJLu v1WDZhCcS0TYWxMo87AlniEL20L AVxBSL1KyVcYIGoNRkfEfRzBJB5 SBNaS61MNVRtGeA7OIHnDu42XAF kJyEmQuz7SyJeRPZzDEc5DHMfVb CPKJUhs5DgVeAcLxD1QQC2UXhqF OqdQKL3GU12EGFfMAXyAcP1SNUj DiDKFH99TGodKOByfpleSzBnGbI bZBZdPl32VIHcYuQkUmr3GqVaRY QuQYf3MDSfKiZPFOCfa4OtWnE9S C37AXAhGXh0CbO5GkErTMWuDRz4 DD9lHeQ4WXCrYZcoZfNuOAZ1TA1 cXBlqLDVnBaD4JnSrQD88NUJctm YNTallQKU9DBhuTDPnGAWwWpV5S uLeUI91CSWlyeTMOscfCOI1Jalf UnH0BLBsSqK9TO47SZ53CzSiuzL KEzx8FSVhYaX1PUY4ZJ4iJJpeXG 52CRErTGR5ToV6HoFtQBdxEjNaA LG6WSSsE36WVCVtVcH5GEJ5Hy09 GUEuKAQlLoj1GcRdPVFxYMm2KBI jMwPSMVNtf1UeKnHpRuX7DQV7OE coNxEuNYYxXX71AgSgRELeWjC2X GGcLjJGBJG5Tpu7GtW7VJUsOig3 KJVgIY77QuFnWWMmSsC9WUZnJrC MPEK1Wvu1IrL1HQvjPXO7SQRqOO 89McSuYHJyTlM3ORHxSrODUQW7V fm8IuB9RRDwXta0FFPuNuK5GS39 IB25CHOqjgNEHru9LTEcYqCuXWY 4UY94BKlzVP80WATkWBP5CcF1Tx WlMAcmPhQiXGU3YMHwL06JXDYnB iZ3XBL5PQXbYTJrVZOcVD9cOfUo UHOgHqG4EJUcAWuuCdBfRWGswum 1NFYlNze0EQI0OR0fGDPkZGRaWq O5DlMhJS51EYYyedDNXvgtNJT3P OggWej1OPMzKu1vZEUaVOKkXnD7 UHXbXfISEXKzSNGhDlQwNGQ6AAD tWkpdEV8pFwL9TDFhWSdfSwEdFC K3QK17XMCaFU50NBMnFXG0NkDlP WIkLZoiAgAfUt25DyboVVz7Nya3 MKKgPuH2FCSkRzhwErF3XPZnWxB ZXT30OXrmWTLgxiynFY26SVPpJB b3KoGxSFQlDG67DaUcQSRcOwY4M JTmMVlhCyEqQNOisywlUN79DCZp WTn8TaJuWWBgCfz9YkVnSZ56ZMB lfmZKEzqwCVK8EGNqKvHyIKAaKz 7gMTDmKRVtFoF6QMCqFwXQXKIdK IBlMfR4BzI6PQMgGsunEJ6fJzT8 WPAzLApiHqEkWUP9DF07REUmLM7 4UPEaABFeTv1lLLKdCsTELWRtJo YnYuX1NEQqDlRySAQwHkE2EB7aK VWbZTJuNOnfNaFaMDG0NNWhG91V HDXvYcE6IFQ0NS26PRweEWFdUhk 8ZdSaTFYjCKi2ZHVxMoIOQBOqq5 PdJeMwDvE7NKR7BPZaPVM6DIOpY G91MqLrFZSwHzD3NNJdJkUBZEFi AZVlPvYjDDU3NWJbGucsAT3cYeV 7AENzPDsyXgNsYMkyRuI4NXX1JI EtAnjcBT2sYsU0MAAeHGcvUcCxI ETkIh5fLXycLK55USCeJSPlKqDp IHJlCmYKNTEyLjYyNyAxMzMuMTE 9KNGvMfL3AG12SZ68PfFkSUedQi XpIXM1YMXqS60JBMWjRwT8GHVqO h80BkXdKUZbIdt0DaOyBQSsTRa2 EGZaHfCEZDQlv7IzUdFpMlB5UHE tBdOsIyM1VDKbIJ95PwGjMAXcTh U7SLDfJiKONK70CXfrVHXoakplM L8gICIvXKRvYIiiQXcnOyU5LfGh PJ1gWgFrmtPMPdnbYOClD10GJOO eEsQtMBOgFUPvIhDpWPGaYik9AK AfMIvkFvArGGH5YHMrW81SJTOoD jVpTUVdSRNfOcYcUZMxAub8YNAw GSfxRlPvGBRvzci7Lg1jCAGjNbY pDaa8MIRoNbj4IT19LkV7RAPoME olPtCuKYH7XCMbY46WXNvgZnMzP Az1Fpo2WqA2WS38FcZzVG4iMhJw ceUOJxydVXQzD75VUTpuYVOlLNz 5Cjl4MvGgPd00AQQcHOlyXNo9OR OnTjHZUP70MWueISDqmkc7CF8gO sHgBuZxDoq6KXQ2VuK9GHObTO9h RpIofgDJZsirVCZbR06NGHE4Iqq dEuG1BU22CKBcZMBfPcMwZD08Fy P7BNHzFNrdCzMzIQA6MZSbR46QZ HW0AxhmJrO5EO39NJOuNQMqXrRb VN78WlW5AQPwDZqsDyMuFQSgyzr gTnEfLIG4ILx7Alk8XnZmLR12XR QfJIgpCAb3JBNaHjXNPU89OFaiT BRosptkIuMgCAQ4DYg8Teo6ShAn QR30UBJkAYtwEYm9FUAuQgEXMYR rl6KdIfT9EK67LqzmAoBhCsn4AZ D7CpW5IQBjVF4nOwDawmICVrokR qctBNXof0NaCbF7AA60GsgsHeSi Ult9ERY1WgV9KNWrAS6qHwLcyjI HXlmbQCYlQ24ACzHbMbD2MmN2XY 62EEGeJxNuHvbdRJ96DpG8LOLzE VyyMsCkQUW3KEZxT00INkOeKxF9 KrE8RL13BUBuNhYeOdjmTH99QcG 3NCByZQpmCjEgIHNjbgoyNDMuOT J8MIw1Gtt0TnGaSPWaMAo7UT78Z bX9AZZzVIkoVmYeICU8QPApY08V PfAwOkt4CQL4IJ38AGQeHRBbAbA 0PNLbHZ3bUeBptqCLBkuoCEDnE9 5ASyR4TxMgNnV8JL76IHAnDqDyX PAbCB82XvL0SLJfSZbfTqIlKBF3 WUAiE53ZByD2GrVhCuC9XL12DHO qTdEfLQUpOZ30KlY9QAPfOFlqJv LyTKFhxacbHkWkTKQ7LHr7Qof3D gM0RG5yIOWhWRdgAMe9ONLcKvGC QD42HSrxTJOtemvaWfYcHVZ1EFk 6Vfk6GkK2LU9jTYPvAJmsGZv9MB GvXeNNEXYfw1KuCvPcNP71BvoiL zLgSzl4SMTsWcJlJTNjPP2iIaDe atLAMcccSmweGZLez0UfGpEpWI0 7CqztVeGgWib7NGNmCtSvZBYmVW 2hYnGfwjQWEinvLKOeM79RJGS2P qx3PSF9JJ81KHTpEyRaYbabQV74 LmL7BJIxTBqcDsRbMUG5YOVyV14 CUUK8Xqj2BEV0SG99QQOmNtHmPs oqTV03BjM8ZBTwNDazOqTwYQIag oa2VwvqJmKiGkPsFxq5CTZoRcF6 OVOuQH8pWkFdwnTVRmfaKxolIWT su7SrCyO6Bo7vXRR3KL05MINdYn PeNzjoES71EvR3HTIfAVfpHxJmW BKavio7FOkiTXZhODh0Hep2ImV5 Tob0TZGhCD0tEyOkbmPDFhdgKbr bPZLwi0TuNuL4DD95NyVqJkStUn k8QAaqFAK3LH66MxT5DTUaLEqgO wOgJVXtyss6Sv5uJDInGeKeQTFv FzwaUQElFsPcWBRhJcKQWH19VQm lUMBbbtl0Xy5wPRDwLzZnSVKvLb izYETrVrHzVWHkHzHSTLXcd9SsB ha8XjKdChR7NqLcBu93VRHsKc88 MjEgcmUKZgowLjkxOCAgc2 (more content not included)... Normal [facility] C Urineon 03-14-2024 Bacteria identified Cx Nom (U) Microbiology PROCEDURE: Urine Culture [R1] SOURCE: U CleanCatch BODY SITE: COLLECTED DATE/TIME: 03/11/2024 23:47 EDT RECEIVED DATE/TIME: 03/12/2024 00:38 EDT START DATE/TIME: 03/12/2024 00:38 EDT FREE TEXT SOURCE: Micah Greer DO, DO, Kaylinn A FINAL REPORTS Final Report [] Verified Date/Time: 03/14/2024 10:09 EDT <10,000 cfu/ml Mixed skin contaminants Performing Locations R1: This test was performed at: [facility], [address] [place] [address], [facility] , , [facility] Comment on above: Performed By: #### [id number] ####[place] [address] Coding Summary.on 03-14-2024 Coding Summary. [id number]+PG hlYWQ+P Y5QBBDyP08uuQMfvO9cP1GGRSjB KtwgNXQHAXbDLwUoexTyOJ0ubNV jZXJu IC8+JT2fXVBnQnjlpCNsq9F0tGJ 9L43hpf4uCBhcxPH3FNSnInOmyx cao2sspSv8GSkoFhukWaUq EIJscT98PWH9tM82Yk88aEMrmJV te7hkvFe7QkReSWJiWMF7gVewSL ddl7HfPURsR36nsSUnh7X2 XWAspPsezDZoQvAwcUN3qE9eIBh hbjgrz4eyedurSqh6wm10pIJox5 C9gTY5P3ZcrwC7FCTjgTQs KsiksWSAfU5kcrnlr8lvdygdCdC fADPrCMb1YIv8JHVyiOcuVhAkOT 37FTO8DTEhpuQyE0YpIVTu jAorJmM4f0C5Cq2SZ2VJQqdwY7V NTUFSWTwvdGQ+TF65ei89Q9CgGa ifLge1EZPeNVH8hVI2tN2j QDQxSObyp8T4kFL5Y1JouoLlbg9 ot3qwHNNcLCwgT21liERct7P3UL UouXM8DHBiqSnhNjGfnZ20 Oyc+KYQzgPcll4EeQyasb8nql9r qwBs5LiypJUHgujFjlFfcTIC4j4 IyNz8fVEJzsKV8pDT0nM4n FtFoXuT4MQmdL252OtMeeHJoYch tO21qN3EvdYX+CXUhHhv9MHIbaG smJB4bT6OaFNDrjgigxMJl lYnoTY6nEGUngizsQGSeaX0yFAM zL4v6ToEzMpA4SDtoH2NcUPGzmj jtHh65uG4sGaHeKxU5RPdq T5PcwnC3JOFcsSBtSQgrMBW3C88 kh9H8FHEqAZMhQVU2eDW2yR1ynG lnbjogbGVmdDsgdmVydGlj PCktVPvgM418YNLoqXjrAmWrFNb uZyBEYXRlOiAgMDYvMTkvMjAyND wvdGQ+OSHcBXL3xWgnKJZn nSDuSJlcSk8lyQpucSwkZW3oOLZ ztchqUVDstL1oNMHtkZVbpCcqEG 0eNVKwsvwug197LnHhPOJ6 XQWlbTVmA5RpzT1gPlZeKMCvNCO aI8PmfLGtTDuxE184LRceWxC7OX EoxkRbD7ElRRTmyFmyWdF3 t7J6Vv6Vg4LjnnwrY0VqbTRwJoJ iEmrmRUq4A3FaXwkspMY+PC90YW VpTB70QTe5ESE3gInjWUhn NKUvB9MtvR2oCkIdGLLuMGJvTyu +PHRhYmxlIHdpZHRoPScxMDAlJy XmiCmjEO4fLt8xEWJpQRXe oJlznELcIpDtw7abWGWvDSwtRG7 wwLzwA5NgbSB7DQRue6y5Ij19L4 0wX7XgjQP+TXWslWB6fOV9 wT7cEmMiKuA4HIltV017HjAgvUX gXwxya5pcu2srjFk0BeU8YHPghn XdtLfvUIK5h2LjJh40J46o IHdpZHRoPSIxNSUiIHZhbGlnbj0 wlQ3fWo9+WPElvRK3jOP1rK4fYf NvItY2YQhnH391YaLvyBIm Sezwm1atr6oxjYz1XiKeVVCguiS udHyfUKK1o8GqDp67R5EteYvtm8 HpAbd9wo94kUEhv2I8bSA5 R7CsMWAdvmcmbIGrzYoqTS7zGGA vflebCBMzgM8iEOIgB8f6JbPpZa Y1XGsoI8EaotB4BLGyaNRa BQSqaUNXzO4gumoxx9mkyjruImJ nJOHgCBp4KXz3MXNipVscYqBnLA R7YjQ5ONW1zSFbpG8eeIxo wedxhK4kLpa+POS5mWDabWLJRN0 lOjwvdGQ+GMClJOQ8pZcaCJzlBR McuU6vMPOdW8x4SlGwGvX1 LRyhG4TyhkE7OHFaePRqQIOnfCR IdA7zyacjw2snyibeIjTvIKYgGG g9CRn2KBKngNxiEpUdWAA0 SdC0EUE3tSFimB8llIfipgokqO5 wOyc+VwdjiQvdHSB4AXs8L1JgWn b0OSDloHhzRU8gzCEbMZhk Bh6geVvfhAqrQU0mJYAlybnef60 3TfHiy9okNUCwxJCnSVlwMNQ0G3 9ma9D1DHCwVFLkIWX0jUD3 lQ8koEtcafrjgGEmeNgzkcKqiOs rPScnNXjmB859DDLmmRioJvQoUH l5E3PwHjq1EXBopZldHI9v wATnNRukAp0hqYaldYiyDG8eRRD raeigs704XmZdx9vxIVXbyHNwUN jsFIY0X29pa7F3BKYmXHPj AFM4vXB3eP3vcFjmitqhlXQzgCy ijlLbwTncKUkxSWrlE016SUXljX wvZbFkvJv7B1NbNlp2DUPy xPmwJN8zfZNcRQxcAs1kmSomkJv zJW9pMRCpyqbay185HaVry3ryKH LjsAAdUZezMCD4T82kb1F0 RSAxFAUxFLS2aQK7kI6ikQvjvhn gbGVmdDsgdmVydGljYWwtYWxpZ2 46IHRvcDsnPlBhdGllbnQg NIvzNNt8D0NwYztswEE+UD72BLP oNQ75cPJxxNPrh9jjoHv4FiQiIN LgZZN8gWtcVHdtb4ThLGPz F60drKIvw2U8HRUwxFxasHXuHdQ eyON3fL3pABwwteavh9jmuimuGn tkp6wkbk03aF79Z47rLVjt BKIvBOGmOGUpANMmdPcrnv8vvU3 wIi8+WQNrhIH8gZA5tI5yLIOwOy J8KVmpF299UtUzxGYkBlxm n6pjc6iftFl8WbT4QNVbuyZioWj cKGG2o1EgQc57S30kATrzLPQsMB AiKTBzGUMilJfyej1wiG0x Ii8+BUFgdJF0pAQ9xU8lUrJdPzD 8CHlmN628EhVzcLKsFvkgE51sE6 JvdXA+DQOmOtl2WPTowCqz BL9oxVVnTFnlUk8pHUJ2OdLbKsH rVSorG2OjSYLwpldyvysnkQA5ND AqVYVvbH20Yj3jkHfcKXIj aIEFiF6hyzmqz5qszhyvKpSkHPP bMUc3UAp9ANIlsLaiJeXyRYV3Aa G2KKN0cOOtyF9gkMxuvbwd yB5zO8XzKQFndwawTs94mO8cVnT qOcL7FOigQtr+WW0SINWWMIpgZG PFBPQWNO14DE32oLYwe2F1 wZA0A4LvWWKwnlytrprtwYQ8XUM xBWAjfV44cDHkVWmzRu5qs6R8x3 41DOJpTDSefA10Gs1swYup MWDauCYQlT5jahgns3livjmoNfF dNVHiQPs3PYj6SQVjmBviTiDjGX N3AcP4JVQ6mCOdgA8zlIqh ejbccW7fTvu+NSXoRfSsOSi0NMf vdGQ+CJRtQOD2fSpjUGdlIEGerA 8oATAqM3s9YdAcGiZ6YMzu R5VyOVNxsmukHc12lD5oEaDrVzF 4SUlgU9RbueI2JSTebCUbYAbgGB P8Y05hx6K2KHBiBBPoOQV1 mCS5aO6ptKtllqisfNMpuWdegkE yuPyeQWmyOIwsS463RBYzaNiyRv TyDIpyCSCoMX42YW42qHNm f9Z8tWA9O7UeTBWokdzpswxcoVT 7ZBAmQVKzuI46lFDaBXdjQy4dt9 D6x884ZEXkTOQrfM05Ay5f tAbhILWztRWNpM4perbkc3eiaob kDzZaWLBlIDl6CQk9OEAutWgrVc UiFAK0OmJ3MFK7bXTcbX2k cNwcpmwwtN8gSfp+RmVtYWxlPC9 0ZA04sWEnv3P7hSS1E2DhOUQziu qjlxtwjGW3FGBaTACyqV30 bLVgTTlvKo3jk5U2j873MMSpJID nfJ24Zr1lsGzwFYBxpSWCpA3lca blp7omfjyoXeVpWJFeRUg9 JLw9RNJxeDkhSmUwLJG9XkX6NSL 3dOEvuM6ugCwtyxxrfO7aFyx+RW 3vtcyrpnJ7QM04BB00X8Un PjwvdGFibGU+PHRhYmxlIHdpZHR jSDeyRYLiFxDddZccRA6yWn1sSZ ZfHIAjiKsyuZZgRzEce1am HSGeDNafBN2zzQtgT0OorPZ4KRW po0h9Iw19K61vN0TlzTL+PGNvbC M4gCP2bT8fRdNcUtW2NYwd N009GkBwiXFyXztsx7ohy9ufgFl 7XpYrQMCbybJcdIdiIWT6i6PcXl 16X76fSBoqUCOgJJIlWJYq HRZzqZlncs0ydO4aTd0+PGNvbCB 7xAU0iD2dJnNwGyD1JTlkE701Nz SnjPGjGsmxH69oN6UgmGT+ FHQwXhv2GLXibRqjEG7xiSTfBZq eWg2zEIF1ZcAsWxWwBUzcJ2HjQD EovqfdzgkzoZM6UNXvOHRs jF15Tb5xxFhkSc9vQREtARV2ZKD tsEKeD9BgjN0uDcFoDRQhPTAxM5 JevAQaHWipW514GFwlKdC6 SYYreqDtS3JmGKFxrWecMmQ5y6I 3Jt9HhGgnuCGxVK0lLxKlISb1J6 LkJdw4EOHacMzgNM4hkGBq MIgkHc1clVgxyXrgGG9oOAMreaz et434NbNqf6woUFAklEXtDWpvFK T0Y75ja5U6ELFrPZNiAPL2 lRI3qR2amWkcksjvxOOmvDflusK bwLnkLHgkYRaxI646TXCuoXagUv VJTij8O6DrUpp5ZLIgdKfr JL7frWZuSJheEf8crTgfpGalNS4 iSNDqwlvtc428TbIsx8xdORWpkC HyEWkcLVG4G55wk5C4ECZx VYAaVDG0tNV7bJ4mjIrlqmrxcLW qvYdxnyJycXwjRDcuASukV394MM HcfZzzEw9XZpi1S6DaIjs2 OLNhpUazOP3ycXNgDTblGj3clGd htHdcZF3mEHCxrmzuj511UmJur2 ejCUBxvCYcUAdwCEH4B64s m6E6NJMcHNXjPGV4cZI2eJ6kyPx nbjogbGVmdDsgdmVydGljYWwtYW lzD673APCwnXyhYkSixFAt OjwvdGQ+WT18oz93I7ZjYbyqYla 4NCKyUYB0aLD1iN4mMWUkUOiwj6 Y3yDY7Q0VxbkXvob6wx6fc KJAcHPndV74br (more content not included)... [facility] Discharge Instructionson Discharge Instructions [id number] [facility] BMPon 03-12-2024 Anion gap [Moles/Vol] 10 mmol/L Normal 6-16 [facility] Comment on above: Performed By: #### 2 [id number] #### [facility] [address] [place] [address] Calcium [Mass/Vol] 9.0 mg/dL Normal 8.9-11.1 [facility] Comment on above: Performed By: #### 2 [id number] #### [facility] [address] [place] [address] Chloride [Moles/Vol] 108 mmol/L Normal 101-111 [facility] Comment on above: Performed By: #### 2 [id number] #### [facility] [address] [place] [address] CO2 [Moles/Vol] 26 mmol/L Normal 21-31 [facility] Comment on above: Performed By: #### 2 [id number] #### [facility] [address] [place] [address] Creatinine [Mass/Vol] 0.7 mg/dL Normal 0.5-1.3 [facility] Comment on above: Performed By: #### 2 [id number] #### [facility] [address] [place] [address] Glucose [Mass/Vol] 112 mg/dL Normal 55-199 [facility] Comment on above: Performed By: #### 2 [id number] #### [facility] [address] [place] [address] Potassium [Moles/Vol] 3.6 mmol/L Normal 3.5-5.3 [facility] Comment on above: Performed By: #### 2 [id number] #### [facility] [address] [place] [address] Sodium [Moles/Vol] 140 mmol/L Normal 135-145 [facility] Comment on above: Performed By: #### 2 [id number] #### [facility] [address] [place] [address] Urea nitrogen [Mass/Vol] 20 mg/dL Normal 5-21 [facility] Comment on above: Performed By: #### 2 [id number] #### [facility] [address] [place] [address] Urea nitrogen/Creatinine [Mass ratio] 29 No Units High 10-20 [facility] Comment on above: Performed By: #### 2 [id number] #### [facility] [address] [place] [address] CBC w/ Auto Diffon 4 Basophils/100 WBC (Bld) 0.9 % Normal 0.0-2.0 [facility] Comment on above: Performed By: #### 2 [id number] #### [facility] [address] [place] [address] Basophils/Leukocytes Auto (Bld) [Pure # fraction] 0.0 E9/L Normal 0.0-0.2 [facility] Comment on above: Performed By: #### 2 [id number] #### [facility] [address] [place] [address] Eosinophils (Bld) [#/Vol] 0.2 E9/L Normal 0.0-0.5 [facility] Comment on above: Performed By: #### 2 [id number] #### [facility] [address] [place] [address] Eosinophils/100 WBC (Bld) 3.9 % Normal 0.0-8.0 [facility] Comment on above: Performed By: #### 2 [id number] #### [facility] [address] [place] [address] Erythrocyte distribution width (RBC) [Ratio] 15.5 % High 10.9-14.2 [facility] Comment on above: Performed By: #### 2 [id number] #### [facility] [address] [place] [address] Hematocrit (Bld) [Volume fraction] 26.9 % Low 34.0-46.0 [facility] Comment on above: Performed By: #### 2 [id number] #### [facility] [address] [place] [address] [place] [address] Hemoglobin (Bld) [Mass/Vol] 9.0 g/dL Low 12.0-16.0 [facility] Comment on above: Performed By: #### 2 [id number] #### [facility] [address] [place] [address] Lymphocytes (Bld) [#/Vol] 1.1 E9/L Normal 1.0-4.0 [facility] Comment on above: Performed By: #### 2 [id number] #### [facility] [address] [place] [address] Lymphocytes/100 WBC (Bld) 20.4 % Normal 14.0-50.0 [facility] Comment on above: Performed By: #### 2 [id number] #### [facility] [address] [place] [address] MCH (RBC) [Entitic mass] 27.7 pg Normal 27.0-34.0 [facility] Comment on above: Performed By: #### 2 [id number] #### [facility] [address] [place] [address] MCHC (RBC) [Mass/Vol] 33.4 g/dL Normal 31.4-36.0 [facility] Comment on above: Performed By: #### 2 [id number] #### [facility] [address] [place] [address] MCV (RBC) [Entitic vol] 82.9 fL Normal 80.0-100.0 [facility] Comment on above: Performed By: #### 2 [id number] #### [facility] [address] [place] [address] Monocytes (Bld) [#/Vol] 0.4 E9/L Normal 0.2-1.0 [facility] Comment on above: Performed By: #### 2 [id number] #### [facility] [address] [place] [address] Neutrophils (Bld) [#/Vol] 3.7 E9/L Normal 2.0-7.5 [facility] Comment on above: Performed By: #### 2 [id number] #### [facility] [address] [place] [address] Neutrophils/100 WBC (Bld) 67.0 % Normal 36.0-75.0 [facility] Comment on above: Performed By: #### 2 [id number] #### [facility] [address] [place] [address] Platelet mean volume (Bld) [Entitic vol] 8.4 fL Normal 6.4-10.8 [facility] Comment on above: Performed By: #### 2 [id number] #### [facility] [address] [place] [address] Platelets (Bld) [#/Vol] 192.0 E9/L Normal 150.0-500.0 [facility] Comment on above: Performed By: #### 2 [id number] #### [facility] [address] [place] [address] RBC (Bld) [#/Vol] 3.2 E12/L Low 4.3-5.9 [facility] Comment on above: Performed By: #### 2 [id number] #### [facility] [address] [place] [address] WBC corrected for nucl RBC Auto (Bld) [#/Vol] 5.6 E9/L Normal 4.0-11.0 [facility] Comment on above: Performed By: #### 2 [id number] #### [facility] [address] [place] [address] CHEMISTRYOrdered By: SYSTEM SYSTEM on 03-12-2024 Troponin HS 4.80 pg/mL Low 10.10 - 27.10 pg/mL [facility] Comment on above: Interpretive Data: T he 95% CI (Confidence Interval) PPV (Positive Predictive Value) for myocardial infarction in females is 38 pg/mL, in males 51 pg/mL. The results should be used in conjunction with clinical conditions of myocardial infarction. (Access High Sensitivity Troponin I Instructions For Use, Cely Parisa, April 2018) Anion gap [Moles/Vol] 10 mmol/L Normal 6 - 16 mEq/L [facility] Calcium [Mass/Vol] 9.0 mg/dL Normal 8.9 - 11. 1 mg/dL [facility] Chloride [Moles/Vol] 108 mmol/L Normal 101 - 1 11 mmol/L [facility] CO2 [Moles/Vol] 26 mmol/L Normal 21 - 31 mmol/L [facility] Creatinine [Mass/Vol] 0.7 mg/dL Normal 0.5 - 1.3 mg/dL [facility] eGFR 103 mL/min/1.73 m2 Normal >=59mL/mi n/ 1.73 m2 [facility] Glucose [Mass/Vol] 112 mg/dL Normal 55 - 199 mg/dL [facility] Potassium [Moles/Vol] 3.6 mmol/L Normal 3.5 - 5.3 mmol/L [facility] Sodium [Moles/Vol] 140 mmol/L Normal 135 - 145 mmol/L [facility] Troponin HS 4.10 pg/mL Low 10.10 - 27.10 pg/mL [facility] Comment on above: Interpretive Data: T he 95% CI (Confidence Interval) PPV (Positive Predictive Value) for myocardial infarction in females is 38 pg/mL, in males 51 pg/mL. The results should be used in conjunction with clinical conditions of myocardial infarction. (Access High Sensitivity Troponin I Instructions For Use, Cely Parisa, April 2018) Urea nitrogen [Mass/Vol] 20 mg/dL Normal 5 - 21 mg/dL [facility] Urea nitrogen/Creatinine [Mass ratio] 29 mg/mg High 10 - 20 [facility] COAGULATIONOrdered By: Darren Abernathy on 03-12-2024 aPTT Coag (PPP) [Time] 32.3 s Normal 25.1 - 36.5 second(s) [facility] Comment on above: Interpretive Data: Nakul win 15 days - 4 weeks 1 - 5 months 6 - 11 months 1 - 5 years 6 - 10 years 11 - 17 years PTT Mean: 35.4 (27.6-45.6) Mean: 33.5 (24.8-40.7) Mean: 32.4 (25.1-40.7) Mean: 31.6 (24.0-39.2) Mean: 31.6 (26.9-38.7) Mean: 31.0 (24.6-38.4) Pediatric Reference ranges were obtained from a study by rivas Rosas al. prepared from 1437 samples obtained at 7 different centers using the same coagulation reagent and instrumentation as [facility] Currently there are no coagulation studies available worldwide for children to 14 days, and no normal ranges. Heparin therapeutic range (represented by Anti-Factor Xa activity of 0.2 - 0.4 U/mL) corresponds to PTT of 56.6 - 109.0 sec. INR Coag (PPP) [Relative time] 1.07 {INR} Invalid Interpretation Code [facility] Comment on above: Interpretive Data: I NR results are specifically intended to assess patients stabilized on long-term Anticoagulation therapy suggested INR s Less Intensive Anticoagulation 2.0 3.0 Conventional Range 3.0 4.5 PT Coag (PPP) [Time] 12.0 s Normal 9.4 - 1 2.5 second(s) [facility] Comment on above: Interpretive Data: 1 5 days - 4 weeks 1 - 5 months 6 -11 months 1-5 years 6-10 years 11 -17 years Mean: 11.2 (9.5-12.6) Mean: 11.0 (9.7-12.8) Mean: 11.0 (9.8-13.0) Mean: 11.3 (9.9-13.4) Mean: 11.7 (10.0-14.6) Mean: 11.8 (10.0 - 14.1) Pediatric Reference ranges were obtained from a study by rivas Rosas al. prepared from 1437 samples obtained at 7 different centers using the same coagulation reagent and instrumentation as [facility] Currently there are no coagulation studies available worldwide for children to 14 days, and no normal ranges. Consent for Treatmenton 02-24 Consent for Treatment [id number] Normal [facility] Discharge Instructionson Discharge Instructions [id number] Normal [facility] ED Clinical Summaryon 2023 ED Clinical Summary (Inserted Image. Tammy ble to display) [place] [id number] ED Clinical Summary Person Information Name: JANA CABALLERO/New_Luis Alfredo Age: 53 Years : 1970 Sex: Female Language: Syrian PCP: Brigitte Carpenter Marital Status: Phone: [phone] Visit Id: Visit Reason: Dysuria; Shortness of breath; Chest pain; sob Speciality: Acuity: 3 Enc Type: Emergency Med Service: Emergency Arrival: 03/11/2024 23:33:45 Discharge: 03/12/2024 02:29:03 LOS: 000 02:56 Checkin: 03/11/2024 23:33:45 Checkout: 03/12/2024 02:29:03 Dispo Type: Home (Routine DC) EVENTS: Event Name Event Status Request Date/Time Start Date/Time Complete Date/Time Arrive Complete 03/11/2024 23:33:45 03/11/2024 23:33:45 03/11/2024 23:33:45 Document Home Meds Request 03/11/2024 23:33:45 Triage Complete 03/11/2024 23:33:45 03/11/2024 23:37:14 03/11/2024 23:37:14 Bed Assign Complete 03/11/2024 23:34:57 03/11/2024 23:34:57 03/11/2024 23:34:57 Dr Exam Complete 03/11/2024 23:34:57 03/11/2024 23:35:22 03/11/2024 23:35:22 RN Exam Complete 03/11/2024 23:34:57 03/11/2024 23:49:02 03/11/2024 23:49:02 Registration Complete 03/11/2024 23:35:22 03/12/2024 00:08:14 03/12/2024 00:08:14 EKG Complete 03/11/2024 23:37:33 03/11/2024 23:42:43 Pending Labs Complete 03/11/2024 23:40:49 03/12/2024 00:37:54 Reg Complete Request 03/12/2024 00:08:14 Reg Bed Request Complete 03/12/2024 00:08:14 03/12/2024 00:08:14 03/12/2024 00:08:14 Pending Labs Complete 03/12/2024 00:09:58 03/12/2024 02:08:34 Lab Complete 03/12/2024 00:09:58 03/12/2024 00:52:28 Patient Care Request 03/12/2024 00:09:58 RT Request 03/12/2024 00:09:58 X-Ray Complete 03/12/2024 00:09:58 03/12/2024 00:42:56 03/12/2024 01:19:04 Meds Admin Complete 03/12/2024 00:21:25 03/12/2024 00:31:51 Pending Labs Complete 03/12/2024 00:23:16 03/12/2024 00:23:16 03/12/2024 00:52:28 Lab Complete 03/12/2024 00:23:16 03/12/2024 00:23:16 03/12/2024 00:52:28 Meds Admin Complete 03/12/2024 00:26:49 03/12/2024 00:31:51 Pending Labs Inlab 03/12/2024 00:37:55 03/12/2024 00:37:55 Lab Inlab 03/12/2024 00:37:55 03/12/2024 00:37:55 Meds Admin Complete 03/12/2024 00:47:35 03/12/2024 01:01:27 Wet Read Request 03/12/2024 01:19:04 Discharge Complete 03/12/2024 02:18:48 03/12/2024 02:29:08 03/12/2024 02:29:08 Transfer Complete 03/12/2024 02:29:08 03/12/2024 02:29:08 03/12/2024 02:29:08 [address] [facility] [id number] PHYS DOC NOTES: MEDICAL INFORMATION: Prescriptions Given: New Medications [id number], [address] [place], [place] [id number], [phone] methocarbamol (Robaxin 500 mg Tab) 1 Tablets By Mouth 3 times a day for 3 Days. Refills: 0. sulfamethoxazole-trimethopr im (Bactrim D.S. 800 mg-160 mg Tab) 1 Tablets By Mouth 2 times a day. Refills: 0. Medications to Continue Taking That Have Changed [id number], [address] [place], [place] [id number], [phone] START: naproxen (Naprosyn 500 mg Tab) 1 Tablets By Mouth 2 times a day as needed for pain. Refills: 0. Other Medications START: naproxen (Naprosyn 500 mg Tab) 1 Tablets By Mouth 2 times a day as needed for pain. Refills: 0. START: naproxen (naproxen 500 mg Tab) 1 Tablets By Mouth 2 times a day. Take one tab by mouth two times a day. Refills: 0. Medications to Continue with No Changes Other Medications albuterol (albuterol HFA 90 mcg/inh MDI) 2 Puffs Inhalation every 4 hours as needed for wheezing. Refills: 0. escitalopram (escitalopram 10 mg Tab) 1 Tablets By Mouth every day. Refills: 0. ferrous sulfate (ferrous sulfate 325 mg Tab) 1 Tablets By Mouth every day. Refills: 1. meclizine (meclizine 25 mg Tab) 1 Tablets By Mouth 3 times a day as needed for dizziness. Refills: 0. multivitamin with minerals (One A Day Women's Complete oral tablet) 1 Tablets By Mouth every day. Refills: 0. ondansetron (Zofran 4 mg Tab) 1 Tablets By Mouth every 6 hours as needed Nausea. Take one tab by mouth every six hours as needed for nausea. Refills: 0. ondansetron (Zofran ODT 4 mg Tab-Dis) 1 Tablets By Mouth every 8 hours as needed Nausea/Vomiting. Refills: 0. oxybutynin (oxybutynin 5 mg ER Tab) 1 Tablets By Mouth every day. Refills: 0. pantoprazole (Pantoprazole [address] Tab) 1 Tablets By Mouth every day. Refills: 4. psyllium (Metamucil Unflavored Smooth Texture Sugar Free 3.4 g/5.4 g oral powder) 3.4 Gram By Mouth every day. daily- stop 2-3 days if diarrhea occurs. Refills: 1. tamsulosin (Flomax 0.4 mg Cap) 1 Capsules By Mouth every day. Refills: 0. tamsulosin (tamsulosin 0.4 mg Cap) 1 Capsules By Mouth every day. Refills: 0. PATIENT EDUCATION INFORMATION: Instructions: Urinary Tract Infection, Adult, Aoan-mk-Vnow; Nonspecific Chest Pain, Adult, Bael-ja-Vslc Follow up: With: Address: When: Brigitte Garcia [address], [address], [facility] [employer] [address] [place] [id number] Independent IP (1) In 3 days 03/15/2024 Comments: Use the Naprosyn, Robaxin as prescrib (more content not included)... Normal [facility] ED Note-Physicianon 03-12-20 ED Note-Physician Basic Information Time Seen: Wendy BRIONES, Delia Baires 03/09/2024 13:25 Chief Complaint Pt came here d/t R flank pain, nausea/vomiting and hematuria that had been ongoing for 4 days. Pt was Dx with UTI and Kidney stones 4 days ago and is on antibiotic, thinks she might be passing stones. Got 50mcg Fentanyl and 4mg Zofran from squad. History of Present Illness Patient is a 53-year-old female with a history of kidney stones and cervical cancer who presents via EMS with 1 week of worsening right flank pain and hematuria. Patient states she was in the ED on 03/04 with similar symptoms where she was diagnosed with a UTI and prescribed Keflex, naproxen, and Zofran. Patient notes during this time she received an abdominal x-ray and was told she did not have a kidney stone or she had one that was not large enough to be seen. Patient states since being in the ED she has continued to experience hematuria, dysuria, and constant right flank pain. Patient states yesterday she also experienced nausea and vomiting but denies hematemesis. Patient states she has not had any episodes of vomiting today. She states she has a history of kidney stones with her last episode being a couple of months ago's and notes this pain feels similar to it. Patient notes she had her last dose of naproxen at noon today with minimal relief in pain. Patient also complains of a mild headache. She denies any chest pain, shortness of breath, fever, vision changes, or changes in bowel movements. Patient notes she was supposed to have an appointment with her PCP today at 1400 for the symptoms. Patient denies having seen a beam warper for previous kidney stones. Review of Systems A 10 point review of systems is negative except as noted above. Medical and Surgical History: Reviewed and noted Social history: Lives at home Family History: Reviewed. Tobacco: Endorses Physical Exam Vitals & Measurements T: 36.8 ?C(Oral) HR: 75(Monitored) RR: 17 BP: 131/64 SpO2: 97% HT: 170 cm WT: 98.3 kg BMI: 34.01 General: The patient appears well and in no apparent distress. Patient is resting comfortably on cart. Skin: Warm, dry, no pallor noted. Head: Normocephalic, atraumatic Eye: PERRLA, EOMI ENT: Moist mucus membranes Cardiovascular: Regular rate normal peripheral perfusion Respiratory: No respiratory distress no accessory muscle use no obvious audible wheezing Musculoskeletal: normal ROM, no deformity, no swelling GI: Right upper quadrant and right flank tenderness to palpation, right CVA tenderness, soft no obvious distention. No rebound or rigidity. No guarding. Neurological: A&O moves all extremities equal strength and symmetry Psychiatric: Cooperative and appropriate Medical Decision Making Patient is a 53-year-old female with a history of kidney stones who presents with 1 week of worsening right flank pain and hematuria. Patient received fentanyl and Zofran and route via EMS. While in the ED she was given promethazine and Norflex for a headache. A chart review was done. Patient's abdominal x-ray on 03/04 showed no urolithiasis. Her urinalysis was positive for leukocyte esterase, WBC, RBC, and squamous epithelial. Lab work from today shows a BUN/creatinine ratio of 26, calcium of 8.8, and lipase of 118. Patient did not receive lab work while in the ED on 03/04 for comparison. however the BUN/creatinine ratio and calcium are comparable to lab work received on 12/11. This is likely due to dehydration from vomiting. Urinalysis from today was positive for blood, nitrates, urobilinogen, leukocyte esterase, RBC, squamous epithelial, WBC, and bacteria. Patient was advised to continue taking her Keflex. CT abdomen and pelvis shows a mildly increasing right hydronephrosis and increase in density within the dilated right ureter with compared to imaging from 12/11. These are possibly due to an infection, hemorrhage, and or renal calculi. Patient does not have an elevated WBC ruling out concerns for an infection. Based on the patient's history and physical exam I am prescribing her tamsulosin to take due to the possibility of having a renal calculi. She was advised to take Tylenol and ibuprofen as needed for pain management. She will follow-up with a urologist for the frequent kidney stones and with a beam warper for the pancreatitis if symptoms do not improve. She was advised to return to the ED with any worsening symptoms. Patient was agreeable to plan and all questions were answered. Assessment/Plan Acute cystitis with hematuria (N30.01: Acute cystitis with hematuria) Acute pancreatitis (K85.90: Acute pancreatitis without necrosis or infection, unspecified) Orders: acetaminophen, 975 mg = 3 tab(s), Tab, Oral, Once, Stop date 03/09/24 16:44:00 EDT, STAT, Start date 03/09/24 16:44:00 EDT, 03/09/24 16:44:00 EDT orphenadrine, 60 mg = 2 mL, Injection, IntraMuscular, Once, Stop date 03/09/24 14:20:00 EDT, STAT, Start date 03/09/24 14:20:00 EDT, 03/09/24 14:20:00 EDT promethazine 12.5 mg + Sodium Ch (more content not included)... Normal [facility] Comment on above: Result Comment: Elec tronically Signed By: Delia Nguyen PA-C\.br\Date and Time Signed: 03/09/24 23:56 EDT\.br\Electronically Co-Signed By: Todd Fleming DO\.rj\Date and Time Co-Signed: 03/12/24 07:10 EDT ED Note-Physician Basic Information Time Seen: Micah Greer DO 03/11/2024 23:35 Chief Complaint (L) sided rib and chest pain with SOB for past 30 minutes. States recent kidney stone. Onantibiotics. Denies respiratory history. Took Tums without relief. Walking improves symptoms. History of Present Illness Patient is a 53-year-old female with past medical history of generalized anxiety disorder, recurrent kidney stones presenting to the ED for evaluation of left-sided rib pain and chest pain. Patient states that symptoms started approximately 30 minutes prior to arrival, initially thought it was acid reflux but took Tums without any improvement in her symptoms. Patient notes improvement of the pain with walking. Patient has associated shortness of breath. Denies any fevers or chills. Review of Systems A 10 point review of systems is negative except as noted above. Medical and Surgical History: Reviewed and noted Social history: Lives at home Tobacco: Denies Physical Exam Vitals & Measurements T: 36.8 ?C(Oral) HR: 70(Monitored) RR: 18 BP: 125/68 SpO2: 97% HT: 167.6 cm WT: 95.6 kg BMI: 34.03 General: Well developed, non toxic appearing, no acute distress HEENT: Head atraumatic, Mucosa moist, hearing grossly normal Neck: No JVD, tracheal deviation Cardiac: Regular rate, rhythm, no murmurs, or gallops, 2+ radial pulses Respiratory: Lungs clear to auscultation B/L, normal respiratory effort tenderness to palpation of the left lateral ribs Abdomen: Soft non tender, no rebound or guarding, no peritoneal signs Extremities: No edema noted in the LE B/L, no tenderness to palpation Neurologic: Alert and oriented, speech clear Skin: No rashes or lesions Psych: Appropriate mood and behavior Medical Decision Making MEDICAL DECISION MAKING Number and Complexity of Problems Differential Diagnosis: [] [facility] Data External documents reviewed: [] My EKG interpretation: [] My CT interpretation: [] My X-ray interpretation: [] My Ultrasound interpretation: [] Decision rules/scores evaluated: Heart Score for Major Cardiac Event History: Example factors for history - pattern of chest pain, onset, duration, relation with exercise, stress or cold, localization, concominant symptoms. reaction to sublingual nitrates, [] Highly suspicious +2 [] Moderately suspicious +1 [x] Slightly suspicious 0 EKG: [] Significant ST-Depression +2 [] Non specific repolarization disturbance +1 [X] Normal 0 Age: [] >= 65 +2 [X] 45-65 + 1 [] <45 0 Risk Factors: (HLD, HTN, DM, Cigarette Smoking, Pos Family Hx, Obesity) [] >3 risk factors or hx of atheroslerotic disease + 2 [x] 1-2 risk factors + 1 [] No risk factors known 0 Troponin: [] >= 3X normal + 2 [] 1-3X normal + 1 [x] <= Normal 0 ---- [X] 0-3 Points 0.9 - 1.7% risk of major adverse cardiac event in 6 weeks [] 4-6 Points 12-16.6% risk of major adverse cardiac event in 6 weeks [] 7-10 Points 50-65% risk of major adverse cardiac event in 6 weeks ---- [] 0-3 Points with 2 sets of negative cardiac markers <1% risk of major adverse cardiac event in 30 days. ---- Discussed with: [] Treatment and Disposition ED Course: Patient is a 53-year-old female presenting to the ED for evaluation of left rib pain, left chest pain. Patient is nontoxic and on arrival, no acute distress. Does have tenderness palpation of the left ribs. EKG without any acute abnormalities. Cardiac workup is obtained, patient is given Toradol, Lidoderm in the ED for treatment of her symptoms. Patient's hemoglobin mildly low at 9 this does appear to be around patient's baseline, urinalysis consistent with urinary tract infection. Patient is currently on Keflex is given a dose of Rocephin in the ED. patient's repeat troponin is negative. I have low concern for ACS with this patient she has a heart score less than 3, pain is reproducible. Discussed findings with patient she is comfortable with discharge home. She is sleeping on reevaluation. Will change the patient to Bactrim as she has been on Keflex for approximately 1 week with continued urinary tract infection. Patient is discharged home with Kunal Miranda in addition to a prescription for Bactrim. She is follow-up with her primary care doctor next 2 to 3 days. She is to return to the ED for any new or worsening symptoms. Shared decision making: [] Code status: [] Assessment/Plan Acute UTI (urinary tract infection) (N39.0: Urinary tract infection, site not specified) Chest pain (R07.9: Chest pain, unspecified) Orders: ceftriaxone + Sodium Chloride 0.9% intravenous solution 50 mL, 1,000 mg = 1 EA, IV Piggyback, Once, Stop date 03/12/24 0:47:00 EDT, STAT, Start date 03/12/24 0:47:00 EDT, 100 mL/hr, Infuse over 30 minute(s), 03/12/24 0:47:00 EDT ketorolac, 30 (more content not included)... Normal [facility] Comment on above: Result Comment: Elec tronically Signed By: Micah Greer DO\.br\Date and Time Signed: 03/12/24 02:29 EDT ED Patient Education Noteon 03-12-2024 ED Patient Education Note Gastroenterology Nonspecific Chest Pain Chest pain can be caused by many different conditions. Some causes of chest pain can be life-threatening. These will require treatment right away. Serious causes of chest pain include: ? Heart attack. ? A tear in the body's main blood vessel. ? Redness and swelling (inflammation) around your heart. ? Blood clot in your lungs. Other causes of chest pain may not be so serious. These include: ? Heartburn. ? Anxiety or stress. ? Damage to bones or muscles in your chest. ? Lung infections. Chest pain can feel like: ? Pain or discomfort in your chest. ? Crushing, pressure, aching, or squeezing pain. ? Burning or tingling. ? Dull or sharp pain that is worse when you move, cough, or take a deep breath. ? Pain or discomfort that is also felt in your back, neck, jaw, shoulder, or arm, or pain that spreads to any of these areas. It is hard to know whether your pain is caused by something that is serious or something that is not so serious. So it is important to see your doctor right away if you have chest pain. Follow these instructions at home: Medicines ? Take iakh-qth-dkdgthr and prescription medicines only as told by your doctor. ? If you were prescribed an antibiotic medicine, take it as told by your doctor. Do not stop taking the antibiotic even if you start to feel better. Lifestyle ? Rest as told by your doctor. ? Do not use any products that contain nicotine or tobacco, such as cigarettes, e-cigarettes, and chewing tobacco. If you need help quitting, ask your doctor. ? Do not drink alcohol. ? Make lifestyle changes as told by your doctor. These may include: ? Getting regular exercise. Ask your doctor what activities are safe for you. ? Eating a heart-healthy diet. A diet and customer sales specialist (dietitian) can help you to learn healthy eating options. ? Staying at a healthy weight. ? Treating diabetes or high blood pressure, if needed. ? Lowering your stress. Activities such as yoga and relaxation techniques can help. General instructions ? Pay attention to any changes in your symptoms. Tell your doctor about them or any new symptoms. ? Avoid any activities that cause chest pain. ? Keep all follow-up visits as told by your doctor. This is important. You may need more testing if your chest pain does not go away. Contact a doctor if: ? Your chest pain does not go away. ? You feel depressed. ? You have a fever. Get help right away if: ? Your chest pain is worse. ? You have a cough that gets worse, or you cough up blood. ? You have very bad (severe) pain in your belly (abdomen). ? You pass out (faint). ? You have either of these for no clear reason: ? Sudden chest discomfort. ? Sudden discomfort in your arms, back, neck, or jaw. ? You have shortness of breath at any time. ? You suddenly start to sweat, or your skin gets clammy. ? You feel sick to your stomach (nauseous). ? You throw up (vomit). ? You suddenly feel lightheaded or dizzy. ? You feel very weak or tired. ? Your heart starts to beat fast, or it feels like it is skipping beats. These symptoms may be an emergency. Do not wait to see if the symptoms will go away. Get medical help right away. Call your local emergency services (911 in the [place] Do not drive yourself to the hospital. Summary ? Chest pain can be caused by many different conditions. The cause may be serious and need treatment right away. If you have chest pain, see your doctor right away. ? Follow your doctor's instructions for taking medicines and making lifestyle changes. ? Keep all follow-up visits as told by your doctor. This includes visits for any further testing if your chest pain does not go away. ? Be sure to know the signs that show that your condition has become worse. Get help right away if you have these symptoms. This information is not intended to replace advice given to you by your health care provider. Make sure you discuss any questions you have with your health care provider. Document Revised: 11/26/2021 Document Reviewed: 11/26/2021 [employer] Patient Education ? 2022 [employer] Obstetrics and Gynecology Urinary Tract Infection, Adult A urinary tract infection (UTI) is an infection of any part of the urinary tract. The urinary tract includes: ? The kidneys. ? The ureters. ? The bladder. ? The urethra. These organs make, store, and get rid of pee (urine) in the body. What are the causes? This infection is caused by germs (bacteria) in your genital area. These germs grow and cause swelling (inflammation) of your urinary tract. What increases the risk? The following factors may make you more likely to develop this condition: ? Using a small, thin tube (catheter) to drain pee. ? Not being able to control when you pee or poop (incontinence). ? Being female. If you are female, these things can increase the ri (more content not included)... Normal [facility] ED Patient Summaryon 024 ED Patient Summary (Inserted Image. Tammy ble to display) [place] [id number] Patient Discharge Instructions Person Information Name: JANA CABALLERO Age: 53 Years Arrival Date: 03/11/2024 23:33:45 Discharge Diagnosis: Acute UTI (urinary tract infection); Chest pain Primary Care Physician: Brigitte Carpenter Provider Information Primary Provider: Micah Greer DO Advanced Asset Management Analyst:None The exam and treatment you received in the Emergency Department were for an urgent problem and are not intended as complete care. It is important that you follow up with a doctor, nurse practitioner, or physician?s accounting administrative assistant for ongoing care. If your symptoms become worse or you do not improve as expected and you are unable to reach your usual health care provider, you should return to the Emergency Department. We are available 24 hours a day. JANA CABALLERO has been given the following list of patient education materials, prescriptions and follow-up instructions: Follow-up Instructions: With: Address: When: Brigitte Garcia [address] [facility] [facility], [address], [place] [id number] Business (1) In 3 days 03/15/2024 Comments: Use the Naprosyn, Robaxin as prescribed as needed for pain. Stop the Keflex and start taking the Bactrim and to you have completed the course. Please follow-up with your primary care doctor next 2 to 3 days. Please return to the ED for any new or worsening symptoms. In the event that this physician does not participate in your insurance network, please consult with your insurance company to find a nearby participating provider. Patient Education Materials: Urinary Tract Infection, Adult, Tgcr-wi-Mlad; Nonspecific Chest Pain, Adult, Riqw-ob-Itbc A MESSAGE TO ALL PATIENTS REGARDING OPIOIDS PRESCRIPTION OPIOIDS: WHAT YOU NEED TO KNOW Prescription opioids can be used to help relieve ireyzejh-iq-exytcr pain and are often prescribed following a surgery or injury, or for certain health conditions. These medications can be an important part of the treatment but also come with serious risks. It is important to work with your healthcare provider to make sure you are getting the safest, most effective care. WHAT ARE THE RISKS AND SIDE EFFECTS OF OPIOID USE? Prescription opioids carry serious risks of addiction and overdose, especially with prolonged use. An opioid overdose, often marked by slowed breathing, can cause sudden . The use of prescription opioids can have a number of side effects as well, even when taken as directed: ? Tolerance?meaning you might need to take more of the medication for the same pain relief ? Physical dependence?meaning you have symptoms of withdrawal when a medication is stopped ? Increased sensitivity to pain ? Constipation ? Nausea, vomiting, and dry mouth ? Sleepiness and dizziness ? Confusion ? Depression ? Low levels of testosterone that can result in lower sex drive, energy, and strength ? Itching and sweating RISKS ARE GREATER WITH: ? History of drug misuse, substance use disorder, or overdose ? Mental health conditions (such as depression or anxiety) ? Sleep apnea ? Older age (65 years and older) ? Avoid alcohol while taking prescription opioids. Also, unless specifically advised by your health care provider, medications to avoid include: ? Benzodiazepines (such as Xanax or Valium) ? Muscle relaxants (such as Soma or Flexeril) ? Hypnotics (such as Ambien or Lunesta) ? Other prescription opioids KNOW YOUR OPTIONS Talk to your health care provider about ways to manage your pain that don?t involve prescription opioids. Some of these options may actually work better and have fewer risks and side effects. Options may include: ? Pain relievers such as acetaminophen, ibuprofen, and naproxen ? Some medication that are also used for depression or seizures ? Physical therapy and exercise ? Cognitive behavioral therapy, a psychological, goal-directed approach, in which patients learn how to modify physical, behavioral, and emotional triggers of pain and stress. IF YOU ARE PRESCRIBED OPIOIDS FOR PAIN: ? Never take opioids in greater amounts or more often than prescribed. ? Follow up with your primary health care provider. o Work together to create a plan on how to manage your pain. o Talk about ways to help manage your pain that don?t involve prescription opioids. o Talk about any and all concerns and side effects. ? Help prevent misuse and abuse o Never sell or share prescription opioids. o Never use another person?s prescription opioids. ? Store prescription opioids in a secure place and out of reach of others (this may include visitors, children, friends, and family). ? Safely dispose of unused prescription opioids: Find your community drug take-back program or your pharmacy mail-back program, or flush them down t (more content not included)... Elza [facility] EMS Documentationon 03-12-20 EMS Documentation Please click on link to see report [facility] Comment on above: Result Comment: Miss ing Attachment - total size limit for all attachments exceeded [email or web address] Can be viewed in source system HEMATOLOGYOrdered By: SYSTEM SYSTEM on 03-12-2024 Basophils/100 WBC (Bld) 0.9 % Normal 0.0 - 2.0 % Remisol Heme Basophils/Leukocytes Auto (Bld) [Pure # fraction] 0.0 E9/L Normal 0.0 - 0.2 E9/L Remisol Heme Eosinophils (Bld) [#/Vol] 0.2 E9/L Normal 0.0 - 0.5 E9/L Remisol Heme Eosinophils/100 WBC (Bld) 3.9 % Normal 0.0 - 8.0 % Remisol Heme Erythrocyte distribution width (RBC) [Ratio] 15.5 % High 10.9 - 14.2 % Remisol Heme Hematocrit (Bld) [Volume fraction] 26.9 % Low 34.0 - 46.0 % Remisol Heme Hemoglobin (Bld) [Mass/Vol] 9.0 g/dL Low 12.0 - 16.0 gm/dL Rem[facility] Heme Lymphocytes (Bld) [#/Vol] 1.1 E9/L Normal 1.0 - 4.0 E9/L Rem[facility] Heme Lymphocytes/100 WBC (Bld) 20.4 % Normal 14.0 - 50.0 % Remisol Heme MCH (RBC) [Entitic mass] 27.7 pg Normal 27.0 - 34.0 pg Remisol Heme MCHC (RBC) [Mass/Vol] 33.4 g/dL Normal 31.4 - 36.0 gm/dL Remisol Heme MCV (RBC) [Entitic vol] 82.9 fL Normal 80.0 - 100.0 fL Rem[facility] Heme Monocytes (Bld) [#/Vol] 0.4 E9/L Normal 0.2 - 1.0 E9/L Remisol Heme Monocytes/100 WBC (Bld) 7.8 % Normal 4.0 - 14.0 % Remisol Heme Neutrophils (Bld) [#/Vol] 3.7 E9/L Normal 2.0 - 7.5 E9/L Rem[facility] Heme Neutrophils/100 WBC (Bld) 67.0 % Normal 36.0 - 75.0 % [facility] Heme Platelet mean volume (Bld) [Entitic vol] 8.4 fL Normal 6.4 - 10.8 fL [facility] Heme Platelets (Bld) [#/Vol] 192.0 E9/L Normal 150.0 - 500.0 E9/L [facility] Heme RBC (Bld) [#/Vol] 3.2 E12/L Low 4.3 - 5.9 E12/L [facility] WBC corrected for nucl RBC Auto (Bld) [#/Vol] 5.6 E9/L Normal 4.0 - 11.0 E9/L [facility] Heme Monitor Recordon 03-12-2024 Monitor Record [id number] Normal [facility] Monitor Record [id number]#[id number] Normal [facility] PT & PTTon 03-12-2024 aPTT Coag (PPP) [Time] 32.3 second(s) Normal 25.1-36.5 [facility] Comment on above: Result Comment: Para meter 15 days - 4 weeks 1 - 5 months 6 - 11 months 1 - 5 years 6 - 10 years 11 - 17 years PTT Mean: 35.4 (27.6-45.6) Mean: 33.5 (24.8-40.7) Mean: 32.4 (25.1-40.7) Mean: 31.6 (24.0-39.2) Mean: 31.6 (26.9-38.7) Mean: 31.0 (24.6-38.4) Pediatric Reference ranges were obtained from a study by Antoni Smrat et al. prepared from 1437 samples obtained at 7 different centers using the same coagulation reagent and instrumentation as [facility]. Currently there are no coagulation studies available worldwide for children to 14 days, and no normal ranges. Heparin therapeutic range (represented by Anti-Factor Xa activity of 0.2 - 0.4 U/mL) corresponds to PTT of 56.6 - 109.0 sec. Performed By: #### 1 [id number] #### [facility] [address] [place] [address] INR Coag (PPP) [Relative time] 1.07 {INR} Invalid Interpretation Code [facility] Comment on above: Result Comment: INR results are specifically intended to assess patients stabilized on long-term Anticoagulation therapy suggested INR?s ?Less Intensive Anticoagulation? 2.0 ? 3.0 Conventional Range 3.0 ? 4.5 Performed By: #### 1 [id number] #### [facility] [address] [place] [address] PT Coag (PPP) [Time] 12.0 second(s) Normal 9.4-12.5 [facility] Comment on above: Result Comment: 15 d ays - 4 weeks 1 - 5 months 6 -11 months 1- 5 years 6-10 years 11 -17 years Mean: 11.2 (9.5-12.6) Mean: 11.0 (9.7-12.8) Mean: 11.0 (9.8-13.0) Mean: 11.3 (9.9-13.4) Mean: 11.7 (10.0-14.6) Mean: 11.8 (10.0 - 14.1) Pediatric Reference ranges were obtained from a study by rivas Rosas al. prepared from 1437 samples obtained at 7 different centers using the same coagulation reagent and instrumentation as [facility]. Currently there are no coagulation studies available worldwide for children to 14 days, and no normal ranges. Performed By: #### 1 [id number] #### [facility] [address] [place] [address] Troponin 0 Hr.on 03-12-2024 Troponin HS 4.10 pg/mL Low 10.10-27.10 [facility] Comment on above: Result Comment: The 95% CI (Confidence Interval) PPV (Positive Predictive Value) for myocardial infarction in females is 38 pg/mL, in males 51 pg/mL. The results should be used in conjunction with clinical conditions of myocardial infarction. (Access High Sensitivity Troponin I Instructions For Use, Cely [place], April 2018) Performed By: #### 1 [id number] #### [facility] [address] [place] [address] Troponin 1 Hr.on 03-12-2024 Troponin HS 4.80 pg/mL Low 10.10-27.10 [facility] Comment on above: Result Comment: The 95% CI (Confidence Interval) PPV (Positive Predictive Value) for myocardial infarction in females is 38 pg/mL, in males 51 pg/mL. The results should be used in conjunction with clinical conditions of myocardial infarction. (Access High Sensitivity Troponin I Instructions For Use, Cely [place], April 2018) Performed By: #### 1 [id number] #### [facility] [address] [place] [address] UA with Cult Rflxon 03-12-20 24 Bilirubin Ql (U) Negative Normal Negative [facility] Comment on above: Performed By: #### 4 [id number] #### [facility] [address] [place] [address] Clarity (U) Turbid Abnormal Clear [facility] Comment on above: Performed By: #### 4 [id number] #### [facility] [address] [place] [address] Color (U) Light-Yellow Normal Yellow [facility] Comment on above: Result Comment: Micr oscopic readings are only performed on those samples that meet specific criteria set forth by [facility]. Performed By: #### 4 [id number] #### [facility] [address] [place] [address] Epithelial cells.squamous Auto (Urine sed) [#/Area] 0-2 Invalid Interpretation Code [facility] Comment on above: Performed By: #### 4 [id number] #### [facility] [address] [place] [address] Glucose Ql (U) Negative Normal Negative [facility] Comment on above: Performed By: #### 4 [id number] #### [facility] [address] [place] [address] Hemoglobin Auto test strip (U) [Mass/Vol] 2+ mg/dL Abnormal Negative [facility] Comment on above: Performed By: #### 4 [id number] #### [facility] [address] [place] [address] Ketones Auto test strip Ql (U) Negative Normal Negative [facility] Comment on above: Performed By: #### 4 [id number] #### [facility] [address] [place] [address] Leukocyte clumps Auto (Urine sed) [#/Area] 4-10 Abnormal [facility] Comment on above: Performed By: #### 4 [id number] #### [facility] [address] [place] [address] Leukocyte esterase Auto test strip Ql (U) 500 Conrad/uL Abnormal Negative [facility] Comment on above: Performed By: #### 4 [id number] #### [facility] [address] [place] [address] Mucus Auto Ql (U) Negative Normal Negative [facility] Comment on above: Performed By: #### 4 [id number] #### [facility] [address] [place] [address] Nitrite Auto test strip Ql (U) Negative Normal Negative [facility] Comment on above: Performed By: #### 4 [id number] #### [facility] [address] [place] [address] pH (U) 6.5 [pH] Invalid Interpretation Code 5.0-9.0 [facility] Comment on above: Performed By: #### 4 [id number] #### [facility] [address] [place] [address] Protein Ql (U) Trace Abnormal Negative [facility] Comment on above: Performed By: #### 4 [id number] #### [facility] [address] [place] [address] RBC Ql (U) 4-20 Abnormal 0-3 [facility] Comment on above: Performed By: #### 4 [id number] #### [facility] [address] [place] [address] Specific gravity (U) [Rel density] 1.008 Invalid Interpretation Code 1.005-1.030 [facility] Comment on above: Performed By: #### 4 [id number] #### [facility] [address] [place] [address] Urobilinogen (U) [Mass/Vol] Negative Normal Negative [facility] Comment on above: Performed By: #### 4 [id number] #### [facility] [address] [place] [address] WBC Auto (Urine sed) [#/Area] >75 Abnormal 0-5 [facility] Comment on above: Performed By: #### 4 [id number] #### [facility] [address] [place] [address] XR Chest Single Viewon 03-12 XR Chest Single View Exam Date/Time: 03/12/2024 01:19 EDT Reason for Exam: Chest pain Report IMPRESSION: SUSPECTED AREAS OF ATELECTASIS AT THE LUNG BASES. CLINICAL HISTORY: Chest pain. Shortness of breath. COMPARISON: 01/06/2023. COMMENT: AP portable. The heart is within normal limits in size. The mediastinum is unremarkable. There are densities at both lung bases, suggesting areas of atelectasis. No consolidated airspace opacification nor pleural effusion is evident. Ordering Provider: Micah Greer FINAL REPORT Dictated: 03/12/2024 8:52 am Sam Michael M.D. Signed (Electronic Signature): 03/12/2024 8:52 am Signed by: Sam Michael M.D. Transcribed by: JG Technologist: MINOR Technical Comments Radiation Dose: Ka,r in mGy = 0 DAP = 0 Normal [facility] eGFRon 03-12-2024 eGFR 103 mL/min/1.73 m2 Normal >=59 [facility] Comment on above: Order Comment: Order added by Discern Expert. Performed By: #### 1 [id number] #### [facility] [address] [place] [address] C Urineon 03-11-2024 Bacteria identified Cx Nom (U) Microbiology PROCEDURE: Urine Culture [R1] SOURCE: U CleanCatch BODY SITE: COLLECTED DATE/TIME: 03/09/2024 14:14 EDT RECEIVED DATE/TIME: 03/09/2024 15:11 EDT START DATE/TIME: 03/09/2024 15:11 EDT FREE TEXT SOURCE: Delia Nguyen PA-C. Delia Nguyen PA-C. FINAL REPORTS Final Report [] Verified Date/Time: 03/11/2024 11:23 EDT 1,000 cfu/ml Mixed skin contaminants Performing Locations R1: This test was performed at: [facility], [address] [place] [address], [phone] , , [facility] Comment on above: Performed By: #### 2 [id number] #### [facility] [address] [place] [address] Pre-Arrival Noteon Pre-Arrival Note Pre-Arrival Summary Name: , Current Date: 03/11/2024 23:37:19 EDT Gender: Female Date of : Age: 52 Pre-Arrival Type: EMS ETA: 03/11/2024 23:56:00 EDT Primary Care Physician: Presenting Problem: Rib pain/ flank pain left Pre-Arrival User: Tamela MATOS, Ashley Infante Referring Source: Location: [place] Completion Date/Time: 03/11/2024 23:26:00 [facility] Emergency Department Pre-Hospital Report Form Vital Signs: BP- 169/85, Pulse- 89, SPO2- 97%on RA Pre-Hospital Report: 20 Left AC Treatment in Route: Response to Treatment: Misc. Issues: Normal [facility] UA with Cult Rflxon 03-11-20 Type of Urine collection method Clean Catch [facility] Comment on above: Performed By: #### 4 [id number] #### [facility] [address] [place] [address] URINALYSISOrdered By: SYSTEM SYSTEM on 03-11-2024 Bilirubin Ql (U) Negative Normal Negativemg/ dL [facility] UA Auto SS Clarity (U) Turbid *ABN* (03/11/24 11:47 PM) Invalid Interpretation Code Clear [facility] UA Auto SS Color (U) Light-Yellow 1 (03/11/24 11:47 PM) Normal Yellow [facility] UA Auto SS Comment on above: Interpretive Data: M icroscopic readings are only performed on those samples that meet specific criteria set forth by [facility]. Epithelial cells.squamous Auto (Urine sed) [#/Area] 0-2 graded/HPF Invalid Interpretation Code [facility] UA Auto SS Glucose Ql (U) Negative Normal Negativemg/ dL [facility] UA Auto SS Hemoglobin Auto test strip (U) [Mass/Vol] 2+ mg/dL Invalid Interpretation Code Negativemg/ dL [facility] UA Auto SS Ketones Auto test strip Ql (U) Negative Normal Negativemg/ dL [facility] UA Auto SS Leukocyte clumps Auto (Urine sed) [#/Area] 4-10 graded/HPF Invalid Interpretation Code [facility] UA Auto SS Leukocyte esterase Auto test strip Ql (U) 500 Conrad/uL Conrad/uL Invalid Interpretation Code NegativeLeu /uL [facility] UA Auto SS Mucus Auto Ql (U) Negative Normal Negativegr a ded/LPF [facility] UA Auto SS Nitrite Auto test strip Ql (U) Negative Normal Negativemg/ dL [facility] UA Auto SS pH (U) 6.5 *NA* (03/11/24 11:47 PM) Invalid Interpretation Code 5.0 - 9.0 [facility] UA Auto SS Protein Ql (U) Trace mg/dL Invalid Interpretation Code Negativemg/ dL [facility] UA Auto SS RBC Ql (U) 4-20 graded/HPF Invalid Interpretation Code 0-3graded/H PF [facility] UA Auto SS Specific gravity (U) [Rel density] 1.008 *NA* (03/11/24 11:47 PM) Invalid Interpretation Code 1.005 - 1.030 [facility] UA Auto SS Urobilinogen (U) [Mass/Vol] Negative Normal Negativemg/ dL [facility] UA Auto SS WBC Auto (Urine sed) [#/Area] >75 graded/HPF Invalid Interpretation Code 0-5graded/H PF [facility] UA Auto SS URINALYSISOrdered By: Merary carreno on 03-11-2024 UA Spec Desc Clean Catch (03/11/24 11:47 PM) Normal [facility] UA Auto SS .UA With Cult Reflexon 03-09 Bacteria LM Ql (Urine sed) 2+ /HPF Abnormal Trace [facility] Comment on above: Result Comment: Urin e dipstick chemistry results may be inaccurate due to intense urine color. Performed By: #### 1 [id number] #### [facility] [address] [place] [address] Bilirubin Ql (U) Negative Normal Negative [facility] Comment on above: Result Comment: Urin e dipstick chemistry results may be inaccurate due to intense urine color. Performed By: #### 1 [id number] #### [facility] [address] [place] [address] Clarity (U) TURBID Abnormal Clear [facility] Comment on above: Result Comment: Urin e dipstick chemistry results may be inaccurate due to intense urine color. Performed By: #### 1 [id number] #### [facility] [address] [place] [address] Color (U) RED Abnormal Yellow [facility] Comment on above: Result Comment: Urin e dipstick chemistry results may be inaccurate due to intense urine color. Performed By: #### 1 [id number] #### [facility] [address] [place] [address] Epithelial cells.squamous LM.HPF (Urine sed) [#/Area] 0-2 Normal [facility] Comment on above: Result Comment: Urin e dipstick chemistry results may be inaccurate due to intense urine color. Performed By: #### 1 [id number] #### [facility] [address] [place] [address] Glucose Ql (U) Negative Normal Negative [facility] Comment on above: Result Comment: Urin e dipstick chemistry results may be inaccurate due to intense urine color. Performed By: #### 1 [id number] #### [facility] [address] [place] [address] Hemoglobin Auto test strip (U) [Mass/Vol] 3+ Abnormal Negative [facility] Comment on above: Result Comment: Urin e dipstick chemistry results may be inaccurate due to intense urine color. Performed By: #### 1 [id number] #### [facility] [address] [place] [address] Ketones Ql (U) Negative Normal Negative [facility] Comment on above: Result Comment: Urin e dipstick chemistry results may be inaccurate due to intense urine color. Performed By: #### 1 [id number] #### [facility] [address] [place] [address] Leukocyte esterase Auto test strip Ql (U) 2+ [id number] Abnormal Negative [facility] Comment on above: Result Comment: Urin e dipstick chemistry results may be inaccurate due to intense urine color. Performed By: #### 1 [id number] #### [facility] [address] [place] [address] Nitrite Auto test strip Ql (U) Positive Abnormal Negative [facility] Comment on above: Result Comment: Urin e dipstick chemistry results may be inaccurate due to intense urine color. Performed By: #### 1 [id number] #### [facility] [address] [place] [address] pH (U) 6.0 [pH] Invalid Interpretation Code 5.0-9.0 [facility] Comment on above: Result Comment: Urin e dipstick chemistry results may be inaccurate due to intense urine color. Performed By: #### 1 [id number] #### [facility] [address] [place] [address] Protein Ql (U) 3+ Abnormal Negative [facility] Comment on above: Result Comment: Urin e dipstick chemistry results may be inaccurate due to intense urine color. Performed By: #### 1 [id number] #### [facility] [address] [place] [address] RBC Ql (U) >75 Abnormal 0-3 [facility] Comment on above: Result Comment: Urin e dipstick chemistry results may be inaccurate due to intense urine color. Performed By: #### 1 [id number] #### [facility] [address] [place] [address] Specific gravity (U) [Rel density] >=1.030 Invalid Interpretation Code 1.005-1.030 [facility] Comment on above: Result Comment: Urin e dipstick chemistry results may be inaccurate due to intense urine color. Performed By: #### 1 [id number] #### [facility] [address] [place] [address] Type of Urine collection method Clean Catch Normal [facility] Comment on above: Result Comment: Urin e dipstick chemistry results may be inaccurate due to intense urine color. Performed By: #### 1 [id number] #### [facility] [address] [place] [address] Urobilinogen Qn (U) 0.2 {Court'U}/dL Normal 0.0-1.0 [facility] Comment on above: Result Comment: Urin e dipstick chemistry results may be inaccurate due to intense urine color. Performed By: #### 1 [id number] #### [facility] [address] [place] [address] WBC LM.HPF (Urine sed) [#/Area] 6-15 Abnormal 0-5 [facility] Comment on above: Result Comment: Urin e dipstick chemistry results may be inaccurate due to intense urine color. Performed By: #### 1 [id number] #### [facility] [address] [place] [address] BMPon 03-09-2024 Anion gap [Moles/Vol] 9 mmol/L Normal 6-16 [facility] Comment on above: Performed By: #### 2 [id number] #### [facility] [address] [place] [address] Calcium [Mass/Vol] 8.8 mg/dL Low 8.9-11.1 [facility] Comment on above: Performed By: #### 2 [id number] #### [facility] [address] [place] [address] Chloride [Moles/Vol] 108 mmol/L Normal 101-111 [facility] Comment on above: Performed By: #### 2 [id number] #### [facility] [address] [place] [address] CO2 [Moles/Vol] 25 mmol/L Normal 21-31 [facility] Comment on above: Performed By: #### 2 [id number] #### [facility] [address] [place] [address] Creatinine [Mass/Vol] 0.8 mg/dL Normal 0.5-1.3 [facility] Comment on above: Performed By: #### 2 [id number] #### [facility] [address] [place] [address] Glucose [Mass/Vol] 103 mg/dL Normal 55-199 [facility] Comment on above: Performed By: #### 2 [id number] #### [facility] [address] [place] [address] Potassium [Moles/Vol] 3.9 mmol/L Normal 3.5-5.3 [facility] Comment on above: Performed By: #### 2 [id number] #### [facility] [address] [place] [address] Sodium [Moles/Vol] 138 mmol/L Normal 135-145 [facility] Comment on above: Performed By: #### 2 [id number] #### [facility] [address] [place] [address] Urea nitrogen [Mass/Vol] 21 mg/dL Normal 5-21 [facility] Comment on above: Performed By: #### 2 [id number] #### [facility] [address] [place] [address] Urea nitrogen/Creatinine [Mass ratio] 26 No Units High 10-20 [facility] Comment on above: Performed By: #### 2 [id number] #### [facility] [address] [place] [address] CBC w/ Auto Diffon 4 Basophils/100 WBC (Bld) 1.2 % Normal 0.0-2.0 [facility] Comment on above: Performed By: #### 2 [id number] #### [facility] [address] [place] [address] Basophils/Leukocytes Auto (Bld) [Pure # fraction] 0.1 E9/L Normal 0.0-0.2 [facility] Comment on above: Performed By: #### 2 [id number] #### [facility] [address] [place] [address] 11206 Eosinophils (Bld) [#/Vol] 0.2 E9/L Normal 0.0-0.5 [facility] Comment on above: Performed By: #### 2 [id number] #### [facility] [address] [place] [address] 18548 Eosinophils/100 WBC (Bld) 3.4 % Normal 0.0-8.0 [facility] Comment on above: Performed By: #### 2 [id number] #### [facility] [address] [place] [address]2293 Erythrocyte distribution width (RBC) [Ratio] 15.4 % High 10.9-14.2 [facility] Comment on above: Performed By: #### 2 [id number] #### [facility] [address] [place] [address] 25765 Hematocrit (Bld) [Volume fraction] 28.3 % Low 34.0-46.0 [facility] Comment on above: Performed By: #### 2 [id number] #### [facility] [address] [place] [address] 07880 Hemoglobin (Bld) [Mass/Vol] 9.6 g/dL Low 12.0-16.0 [facility] Comment on above: Performed By: #### 2 [id number] #### [facility] [address] [place] [address] Lymphocytes (Bld) [#/Vol] 1.0 E9/L Normal 1.0-4.0 [facility] Comment on above: Performed By: #### 2 [id number] #### [facility] [address] [place] [address] 86037 Lymphocytes/100 WBC (Bld) 17.2 % Normal 14.0-50.0 [facility] Comment on above: Performed By: #### 2 [id number] #### [facility] [address] [place] [address] MCH (RBC) [Entitic mass] 28.2 pg Normal 27.0-34.0 [facility] Comment on above: Performed By: #### 2 [id number] #### [facility] [address] [place] [address] MCHC (RBC) [Mass/Vol] 34.1 g/dL Normal 31.4-36.0 [facility] Comment on above: Performed By: #### 2 [id number] #### [facility] [address] [place] [address] MCV (RBC) [Entitic vol] 82.9 fL Normal 80.0-100.0 [facility] Comment on above: Performed By: #### 2 [id number] #### [facility] [address] [place] [address] 35925 Monocytes (Bld) [#/Vol] 0.4 E9/L Normal 0.2-1.0 [facility] Comment on above: Performed By: #### 2 [id number] #### [facility] [address] [place] [address] Neutrophils (Bld) [#/Vol] 3.9 E9/L Normal 2.0-7.5 [facility] Comment on above: Performed By: #### 2 [id number] #### [facility] [address] [place] [address] 50554 Neutrophils/100 WBC (Bld) 70.5 % Normal 36.0-75.0 [facility] Comment on above: Performed By: #### 2 [id number] #### [facility] [address] [place] [address] Platelet 192.0 E9/L Normal 150.0-500.0 [facility] Comment on above: Performed By: #### 2 [id number] #### [facility] [address] [place] [address] Platelet mean volume (Bld) [Entitic vol] 8.0 fL Normal 6.4-10.8 [facility] Comment on above: Performed By: #### 2 [id number] #### [facility] [address] [place] [address] RBC (Bld) [#/Vol] 3.4 E12/L Low 4.3-5.9 [facility] Comment on above: Performed By: #### 2 [id number] #### [facility] [address] [place] [address] WBC corrected for nucl RBC Auto (Bld) [#/Vol] 5.5 E9/L Normal 4.0-11.0 [facility] Comment on above: Performed By: #### 2 [id number] #### [facility] [address] [place] [address] CHEMISTRYOrdered By: SYSTEM SYSTEM on 03-09-2024 Albumin [Mass/Vol] 3.5 g/dL Normal 3.3 - 5.0 gm/dL Remisol Chem Albumin/Globulin [Mass ratio] 1.5 {ratio} Normal 1.1 - 2.2 Remisol Chem ALP [Catalytic activity/Vol] 72 [iU]/d Normal 21 - 98 Int._Unit/L Remisol Chem ALT No additional P-5'-P [Catalytic activity/Vol] 10 [iU]/d Normal 6 - 46 Int._Unit/L Remisol Chem Anion gap [Moles/Vol] 9 mmol/L Normal 6 - 16 mEq/L Remisol Chem AST [Catalytic activity/Vol] 11 [iU]/d Normal 5 - 43 Int._Unit/L Remisol Chem Bilirubin [Mass/Vol] 0.3 mg/dL Normal 0.0 - 1 .1 mg/dL Remisol Chem Bilirubin.direct [Mass/Vol] 0.1 mg/dL Normal 0.0 - 0.4 mg/dL Remisol Chem Bilirubin.indirect [Mass or moles/Vol] 0.2 mg/dL Normal 0.1 - 0.9 mg/dL Remisol Chem Calcium [Mass/Vol] 8.8 mg/dL Low 8.9 - 11. 1 mg/dL Remisol Chem Chloride [Moles/Vol] 108 mmol/L Normal 101 - 1 11 mmol/L Remisol Chem CO2 [Moles/Vol] 25 mmol/L Normal 21 - 31 mmol/L Remisol Chem Creatinine [Mass/Vol] 0.8 mg/dL Normal 0.5 - 1.3 mg/dL Remisol Chem eGFR 88 mL/min/1.73 m2 Normal >=59mL/min / 1.73 m2 Remisol Chem Globulin (S) [Mass/Vol] 2.3 g/dL Normal 1.4 - 4.0 gm/dL Remisol Chem Glucose [Mass/Vol] 103 mg/dL Normal 55 - 199 mg/dL Remisol Chem Lipase [Catalytic activity/Vol] 118 U/L High 13 - 58 unit/L Remisol Chem Potassium [Moles/Vol] 3.9 mmol/L Normal 3.5 - 5.3 mmol/L Remisol Chem Protein [Mass/Vol] 5.8 g/dL Low 6.0 - 7.8 gm/dL Remisol Chem Sodium [Moles/Vol] 138 mmol/L Normal 135 - 145 mmol/L Remisol Chem Urea nitrogen [Mass/Vol] 21 mg/dL Normal 5 - 21 mg/dL Remisol Chem Urea nitrogen/Creatinine [Mass ratio] 26 mg/mg High 10 - [address] Abdomen/Pelvis w/o Contra ston 03-09-2024 CT Abdomen/Pelvis w/o Contrast Exam Date/Time: 03/09/2024 15:08 EDT Reason for Exam: Abdominal pain, acute, nonlocalized;Other (please specify) Report IMPRESSION: MILDLY INCREASING MODERATE TO MARKED RIGHT HYDRONEPHROSIS FROM 12/12/2023. INCREASING DENSITY WITHIN THE DILATED MID TO DISTAL RIGHT URETER COMPARED TO 12/12/2023, POSSIBLY INFECTION, HEMORRHAGE AND/OR SMALL CALCULI. SIMILAR-APPEARING PERINEPHRIC EDEMA, CHRONIC RIGHT SUBCAPSULAR HEMATOMA, AND OTHER CHRONIC FINDINGS, NOTED. CLINICAL HISTORY: Abdominal pain, acute, nonlocalized. COMPARISON: 12/12/2023. TECHNIQUE: Spiral unenhanced images were obtained of the abdomen and pelvis without contrast. All CT scans at this facility use dose modulation, iterative reconstruction, and/or weight based dosing when appropriate to reduce radiation dose to as low as reasonably achievable. Unless otherwise stated, incidental findings identified in this report do not require routine follow-up imaging. FINDINGS: Moderate to marked right hydronephrosis has mildly worsened since 12/12/2023. Mildly increased density within the dilated mid to distal right ureter is a new finding, without a defined calculus. Mild ill-defined inflammation around the right kidney and upper urinary tract and a chronic right subcapsular hematoma appear similar. A chronic right sacral fracture, fat-containing ventral and periumbilical hernias, other previously described and chronic findings have not significantly changed. Mild probable dependent atelectasis of the visualized lung bases is again noted. Ordering Provider: Delia Nguyen FINAL REPORT Dictated: 03/09/2024 3:44 pm Jean Claude Traylor MD Signed (Electronic Signature): 03/09/2024 3:44 pm Signed by: Jean Claude Traylor MD Transcribed by: JG Technologist: SAHIL Technical Comments Rectal Contrast Given? No Oral contrast amount in ml's: 0 Normal [facility] Consent for Treatmenton 02-24 Consent for Treatment [id number] Normal [facility] ED Clinical Summaryon 2023 ED Clinical Summary (Inserted Image. Tammy ble to display) [place] [id number] ED Clinical Summary Person Information Name: JANA CABALLERO [facility] Age: 53 Years : 1970 Sex: Female Language: Syrian PCP: Brigitte Carpenter Marital Status: Phone: [phone] Visit Id: Visit Reason: Hematuria; Vomiting; Flank pain; FLANK PAIN, UTI, N/V Speciality: Acuity: 3 Enc Type: Emergency Med Service: Emergency Arrival: 03/09/2024 13:19:56 Discharge: 03/09/2024 16:55:30 LOS: 000 03:36 Checkin: 03/09/2024 13:19:56 Checkout: 03/09/2024 16:55:30 Dispo Type: Home (Routine DC) EVENTS: Event Name Event Status Request Date/Time Start Date/Time Complete Date/Time Arrive Complete 03/09/2024 13:19:56 03/09/2024 13:19:56 03/09/2024 13:19:56 Document Home Meds Request 03/09/2024 13:19:56 Triage Complete 03/09/2024 13:19:56 03/09/2024 13:27:07 03/09/2024 13:27:07 Bed Assign Complete 03/09/2024 13:19:56 03/09/2024 13:19:56 03/09/2024 13:19:56 Dr Exam Complete 03/09/2024 13:19:56 03/09/2024 13:25:37 03/09/2024 13:25:37 RN Exam Complete 03/09/2024 13:19:56 03/09/2024 13:42:10 03/09/2024 13:42:10 Registration Complete 03/09/2024 13:25:37 03/09/2024 14:13:29 03/09/2024 14:13:29 Dr Exam Complete 03/09/2024 13:26:40 03/09/2024 13:26:40 03/09/2024 13:26:40 Meds Admin Complete 03/09/2024 13:47:51 03/09/2024 13:53:47 Pending Labs Complete 03/09/2024 13:47:51 03/09/2024 14:43:32 Lab Complete 03/09/2024 13:47:51 03/09/2024 14:43:32 Patient Care Request 03/09/2024 13:47:51 CT Complete 03/09/2024 13:47:51 03/09/2024 14:44:15 03/09/2024 15:08:25 Pending Labs Complete 03/09/2024 14:00:21 03/09/2024 14:00:21 03/09/2024 14:43:32 Lab Complete 03/09/2024 14:00:21 03/09/2024 14:00:21 03/09/2024 14:43:32 Pending Labs Complete 03/09/2024 14:01:36 03/09/2024 14:01:36 03/09/2024 14:01:37 Reg Complete Request 03/09/2024 14:13:29 Reg Bed Request Complete 03/09/2024 14:13:29 03/09/2024 14:13:29 03/09/2024 14:13:29 Meds Admin Complete 03/09/2024 14:22:43 03/09/2024 14:34:08 Pending Labs Complete 03/09/2024 14:24:15 03/09/2024 14:24:15 03/09/2024 14:50:10 Lab Complete 03/09/2024 14:24:15 03/09/2024 14:24:15 03/09/2024 14:50:10 Urine Collect Complete 03/09/2024 14:24:15 03/09/2024 14:24:15 03/09/2024 14:50:10 Pending Labs Inlab 03/09/2024 14:25:37 03/09/2024 14:25:37 Lab Inlab 03/09/2024 14:25:37 03/09/2024 14:25:37 Discharge Complete 03/09/2024 16:32:34 03/09/2024 16:55:35 03/09/2024 16:55:35 Meds Admin Complete 03/09/2024 16:44:21 03/09/2024 16:47:13 Transfer Complete 03/09/2024 16:55:35 03/09/2024 16:55:35 03/09/2024 16:55:35 ADDRESS: [address] [facility] [id number] PHYS DOC NOTES: MEDICAL INFORMATION: Prescriptions Given: Medications to Continue Taking That Have Changed [id number], [address] [place], [place] [id number], [phone] START: tamsulosin (tamsulosin 0.4 mg Cap) 1 Capsules By Mouth every day. Refills: 0. Other Medications START: tamsulosin (Flomax 0.4 mg Cap) 1 Capsules By Mouth every day. Refills: 0. Medications to Continue with No Changes Other Medications albuterol (albuterol HFA 90 mcg/inh MDI) 2 Puffs Inhalation every 4 hours as needed for wheezing. Refills: 0. cephalexin (Keflex 500 mg Cap) 1 Capsules By Mouth every 12 hours for 7 Days. Refills: 0. escitalopram (escitalopram 10 mg Tab) 1 Tablets By Mouth every day. Refills: 0. ferrous sulfate (ferrous sulfate 325 mg Tab) 1 Tablets By Mouth every day. Refills: 1. meclizine (meclizine 25 mg Tab) 1 Tablets By Mouth 3 times a day as needed for dizziness. Refills: 0. multivitamin with minerals (One A Day Women's Complete oral tablet) 1 Tablets By Mouth every day. Refills: 0. naproxen (Naprosyn 500 mg Tab) 1 Tablets By Mouth 2 times a day as needed for pain. Refills: 0. naproxen (naproxen 500 mg Tab) 1 Tablets By Mouth 2 times a day. Take one tab by mouth two times a day. Refills: 0. ondansetron (Zofran 4 mg Tab) 1 Tablets By Mouth every 6 hours as needed Nausea. Take one tab by mouth every six hours as needed for nausea. Refills: 0. ondansetron (Zofran ODT 4 mg Tab-Dis) 1 Tablets By Mouth every 8 hours as needed Nausea/Vomiting. Refills: 0. oxybutynin (oxybutynin 5 mg ER Tab) 1 Tablets By Mouth every day. Refills: 0. pantoprazole (Pantoprazole [address] Tab) 1 Tablets By Mouth every day. Refills: 4. psyllium (Metamucil Unflavored Smooth Texture Sugar Free 3.4 g/5.4 g oral powder) 3.4 Gram By Mouth every day. daily- stop 2-3 days if diarrhea occurs. Refills: 1. PATIENT EDUCATION INFORMATION: Instructions: Pancreatitis Eating Plan Follow up: With: Address: When: Pond Jianayanna [address], [address], [facility] [address] [place], [place] [phone] Business (1) In 3 days 03/12/2024 Comments: Call the beam warper to schedule an appointment if symptoms do not improve for further management of care With: Address: When: Rafael TRUJILLO [address], [address], [place] [address] [place] [address] (more content not included)... Normal [facility] ED Patient Education Noteon 03-09-2024 ED Patient Education Note Gastroenterology Pancreatitis Eating Plan Pancreatitis is when your pancreas gets irritated and swollen (inflamed). The pancreas is a small gland behind your stomach. It helps your body digest food and regulate your blood sugar. Pancreatitis can affect how your body digests food, especially foods with fat. You may also have other symptoms such as pain in your abdomen (abdominal pain) or nausea. When you have pancreatitis, following a low-fat eating plan may help you manage symptoms and recover faster. Work with your health care provider or a dietitian to create an eating plan that is right for you. What are tips for following this plan? Reading food labels Use the information on food labels to help keep track of how much fat you eat: ? Check the serving size. ? Look for the amount of total fat in grams (g) in one serving. ? Low-fat foods have 3 g of fat or less per serving. ? Fat-free foods have 0.5 g of fat or less per serving. ? Keep track of how much fat you eat based on how many servings you eat. ? For example, if you eat two servings, the amount of fat you eat will be twice what is listed on the label. Shopping ? Buy low-fat or nonfat foods, such as: ? Fresh, frozen, or canned fruits and vegetables. ? Grains, including pasta, bread, and rice. ? Lean meat, poultry, fish, and other protein foods. ? Low-fat or nonfat dairy. ? Avoid buying bakery products and other sweets made with whole milk, butter, and eggs. ? Avoid buying snack foods with added fat, such as anything with butter or cheese flavoring. Cooking ? Remove skin from poultry, and remove extra fat from meat. ? Limit the amount of fat and oil you use to 6 tsp (30 mL) or less per day. ? Cook using low-fat methods, such as boiling, broiling, grilling, steaming, or baking. ? Use spray oil to cook. Add fat-free chicken broth to add flavor and moisture. ? Avoid adding cream to thicken soups or sauces. Use other thickeners such as corn starch or tomato paste. Meal planning ? Eat a low-fat diet as told by your dietitian. For most people, this means having no more than 55?65 g of fat each day. ? Eat small, frequent meals throughout the day. For example, you may have 5 or 6 small meals instead of 3 large meals. ? Drink enough fluid to keep your urine pale yellow. ? Do not drink alcohol. Talk to your health care provider if you need help stopping. ? Limit how much caffeine you have, including black coffee, black and green tea, soft drinks with caffeine, and energy drinks. ? Plan to include a variety of foods in your diet. Include fruits, vegetables, whole grains and lean proteins, and low-fat or nonfat dairy. You need a balanced diet for good overall health. General information ? Let your health care provider or dietitian know if you have unplanned weight loss on this eating plan. ? You may be told to follow a clear liquid or soft food diet when symptoms come back, which is called a flare. Talk with your health care provider about how to manage your diet during symptoms of a flare. ? Take any vitamins or supplements as told by your health care provider. You may need to take: ? Extra vitamins that dissolve in fat (are fat soluble), such as vitamins A, D, E, and K. ? Nutritional supplements. ? Work with a dietitian, especially if you have other conditions such as obesity, osteoporosis, or diabetes mellitus. ? Some people need extra treatments, such as: ? Pills or capsules to replace enzymes (oral pancreatic enzyme replacement therapy). ? Feedings through a tube in the stomach or intestine (enteral feedings). What foods should I avoid? Fruits Fried fruits. Fruits served with butter or cream. Vegetables Fried vegetables. Vegetables cooked with butter, cheese, or cream. Grains Biscuits, waffles, donuts, pastries, and croissants. Pies and cookies. Butter-flavored popcorn. Regular crackers. Meats and other proteins Fatty cuts of meat. Poultry with skin. Organ meats. Precooked or cured meat, such as sausages or meat loaves. Whole eggs. Nuts and nut butters. Dairy Whole and 2% milk. Whole milk yogurt. Whole milk ice cream. Cream and cbol-jml-jdlv. Cheese, such as cream cheese. Sour cream. Beverages Wine, beer, and liquor. The items listed above may not be a complete list of foods and beverages you should avoid. Contact a dietitian for more information. Summary ? Pancreatitis can affect how your body digests food, especially foods with fat. ? When you have pancreatitis, it is recommended that you follow a low-fat eating plan to help you recover faster and manage symptoms. ? Do not drink alcohol. Limit the amount of caffeine you have, and drink enough fluid to keep your urine pale yellow. This information is not intended to replace advice given to you by your health care provider. Make sure you discuss any questions you have with your health care provider. Document Rev (more content not included)... Normal [facility] ED Patient Summaryon 024 ED Patient Summary (Inserted Image. Tammy ble to display) [address] [address] Patient Discharge Instructions Person Information Name: JANA CABALLERO Age: 53 Years Arrival Date: 03/09/2024 13:19:56 Discharge Diagnosis: Acute cystitis with hematuria; Acute pancreatitis Primary Care Physician: Brigitte Carpenter Provider Information Primary Provider: Todd Fleming DO Advanced Asset [employer] Analyst:Delia Nguyen PA-C The exam and treatment you received in the Emergency Department were for an urgent problem and are not intended as complete care. It is important that you follow up with a doctor, nurse practitioner, or physician?s accounting administrative assistant for ongoing care. If your symptoms become worse or you do not improve as expected and you are unable to reach your usual health care provider, you should return to the Emergency Department. We are available 24 hours a day. JANA CABALLERO has been given the following list of patient education materials, prescriptions and follow-up instructions: Follow-up Instructions: With: Address: When: Dejah Duran [address], [address], [facility] [address] [place] [phone] Business (1) In 3 days 03/12/2024 Comments: Call the beam warper to schedule an appointment if symptoms do not improve for further management of care With: Address: When: Rafael TRUJILLO [address], [address], [place] [address] [place] [phone] Business (1) In 3 days 03/12/2024 Comments: Call to schedule an appointment with the urologist for further management of care. With: Address: When: Brigitte Garcia [address], [address], [place] [phone] Business (1) In 3 days In the event that this physician does not participate in your insurance network, please consult with your insurance company to find a nearby participating provider. Patient Education Materials: Pancreatitis Eating Plan A MESSAGE TO ALL PATIENTS REGARDING OPIOIDS PRESCRIPTION OPIOIDS: WHAT YOU NEED TO KNOW Prescription opioids can be used to help relieve qdwrcxzs-hw-ybeatd pain and are often prescribed following a surgery or injury, or for certain health conditions. These medications can be an important part of the treatment but also come with serious risks. It is important to work with your healthcare provider to make sure you are getting the safest, most effective care. WHAT ARE THE RISKS AND SIDE EFFECTS OF OPIOID USE? Prescription opioids carry serious risks of addiction and overdose, especially with prolonged use. An opioid overdose, often marked by slowed breathing, can cause sudden . The use of prescription opioids can have a number of side effects as well, even when taken as directed: ? Tolerance?meaning you might need to take more of the medication for the same pain relief ? Physical dependence?meaning you have symptoms of withdrawal when a medication is stopped ? Increased sensitivity to pain ? Constipation ? Nausea, vomiting, and dry mouth ? Sleepiness and dizziness ? Confusion ? Depression ? Low levels of testosterone that can result in lower sex drive, energy, and strength ? Itching and sweating RISKS ARE GREATER WITH: ? History of drug misuse, substance use disorder, or overdose ? Mental health conditions (such as depression or anxiety) ? Sleep apnea ? Older age (65 years and older) ? Avoid alcohol while taking prescription opioids. Also, unless specifically advised by your health care provider, medications to avoid include: ? Benzodiazepines (such as Xanax or Valium) ? Muscle relaxants (such as Soma or Flexeril) ? Hypnotics (such as Ambien or Lunesta) ? Other prescription opioids KNOW YOUR OPTIONS Talk to your health care provider about ways to manage your pain that don?t involve prescription opioids. Some of these options may actually work better and have fewer risks and side effects. Options may include: ? Pain relievers such as acetaminophen, ibuprofen, and naproxen ? Some medication that are also used for depression or seizures ? Physical therapy and exercise ? Cognitive behavioral therapy, a psychological, goal-directed approach, in which patients learn how to modify physical, behavioral, and emotional triggers of pain and stress. IF YOU ARE PRESCRIBED OPIOIDS FOR PAIN: ? Never take opioids in greater amounts or more often than prescribed. ? Follow up with your primary health care provider. o Work together to create a plan on how to manage your pain. o Talk about ways to help manage your pain that don?t involve prescription opioids. o Talk about any and all concerns and side effects. ? Help prevent misuse and abuse o Never sell or share prescription opioids. o Never use another person?s prescription opioids. ? Store prescription opioids in a secure place and out of reach of others (this may include visitors, childr (more content not included)... Normal [facility] HEMATOLOGYOrdered By: SYSTEM SYSTEM on 03-09-2024 Basophils/100 WBC (Bld) 1.2 % Normal 0.0 - 2.0 % Remisol Heme Basophils/Leukocytes Auto (Bld) [Pure # fraction] 0.1 E9/L Normal 0.0 - 0.2 E9/L Remisol Heme Eosinophils (Bld) [#/Vol] 0.2 E9/L Normal 0.0 - 0.5 E9/L Remisol Heme Eosinophils/100 WBC (Bld) 3.4 % Normal 0.0 - 8.0 % Remisol Heme Erythrocyte distribution width (RBC) [Ratio] 15.4 % High 10.9 - 14.2 % Remisol Heme Hematocrit (Bld) [Volume fraction] 28.3 % Low 34.0 - 46.0 % Remisol Heme Hemoglobin (Bld) [Mass/Vol] 9.6 g/dL Low 12.0 - 16.0 gm/dL Remisol Heme Lymphocytes (Bld) [#/Vol] 1.0 E9/L Normal 1.0 - 4.0 E9/L Remisol Heme Lymphocytes/100 WBC (Bld) 17.2 % Normal 14.0 - 50.0 % Remisol Heme MCH (RBC) [Entitic mass] 28.2 pg Normal 27.0 - 34.0 pg Remisol Heme MCHC (RBC) [Mass/Vol] 34.1 g/dL Normal 31.4 - 36.0 gm/dL Remisol Heme MCV (RBC) [Entitic vol] 82.9 fL Normal 80.0 - 100.0 fL Remisol Heme Monocytes (Bld) [#/Vol] 0.4 E9/L Normal 0.2 - 1.0 E9/L Remisol Heme Monocytes/100 WBC (Bld) 7.7 % Normal 4.0 - 14.0 % Remisol Heme Neutrophils (Bld) [#/Vol] 3.9 E9/L Normal 2.0 - 7.5 E9/L Remisol Heme Neutrophils/100 WBC (Bld) 70.5 % Normal 36.0 - 75.0 % Remisol Heme Platelet 192.0 E9/L Normal 150.0 - 500.0 E9/L Remisol Heme Platelet mean volume (Bld) [Entitic vol] 8.0 fL Normal 6.4 - 10.8 fL Remisol Heme RBC (Bld) [#/Vol] 3.4 E12/L Low 4.3 - 5.9 E12/L Remisol Heme WBC corrected for nucl RBC Auto (Bld) [#/Vol] 5.5 E9/L Normal 4.0 - 11.0 E9/L Remisol Heme Hep Func Panelon 03-09-2024 Albumin [Mass/Vol] 3.5 g/dL Normal 3.3-5.0 [facility] Comment on above: Performed By: #### 2 [id number] #### [facility] [address] [place] [address] Albumin/Globulin (S) [Mass conc ratio] 1.5 Normal 1.1-2.2 [facility] Comment on above: Performed By: #### 2 [id number] #### [facility] [address] [place] [address] ALP [Catalytic activity/Vol] 72 Int._Unit/L Normal 21-98 [facility] Comment on above: Performed By: #### 2 [id number] #### [facility] [address] [place] [address] ALT No additional P-5'-P [Catalytic activity/Vol] 10 Int._Unit/L Normal 6-46 [facility] Comment on above: Performed By: #### 2 [id number] #### [facility] [address] [place] [address] AST [Catalytic activity/Vol] 11 Int._Unit/L Normal 5-43 [facility] Comment on above: Performed By: #### 2 [id number] #### [facility] [address] [place] [address] Bilirubin [Mass/Vol] 0.3 mg/dL Normal 0.0-1.1 [facility] Comment on above: Performed By: #### 2 [id number] #### [facility] [address] [place] [address] Bilirubin.direct [Mass/Vol] 0.1 mg/dL Normal 0.0-0.4 [facility] Comment on above: Performed By: #### 2 [id number] #### [facility] [address] [place] [address] Bilirubin.indirect [Mass or moles/Vol] 0.2 mg/dL Normal 0.1-0.9 [facility] Comment on above: Performed By: #### 2 [id number] #### [facility] [address] [place] [address] Globulin (S) [Mass/Vol] 2.3 g/dL Normal 1.4-4.0 [facility] Comment on above: Performed By: #### 2 [id number] #### [facility] [address] [place] [address] Protein [Mass/Vol] 5.8 g/dL Low 6.0-7.8 [facility] Comment on above: Performed By: #### 2 [id number] #### [facility] [address] [place] [address] Lipase Levelon 03-09-2024 Lipase [Catalytic activity/Vol] 118 U/L High 13-58 [facility] Comment on above: Performed By: #### 2 [id number] #### [facility] [address] [place] [address] Pre-Arrival Noteon Pre-Arrival Note Pre-Arrival Summary Name: , formerly [facility] Current Date: 03/09/2024 13:20:29 EDT Gender: Female Date of : Age: 53 Pre-Arrival Type: EMS ETA: 03/09/2024 13:44:00 EDT Primary Care Physician: Presenting Problem: flank pain, uti, n/v Pre-Arrival User: Cesar Pelletier Referring Source: Location: [place] Completion Date/Time: 03/09/2024 13:14:00 [facility] Emergency Department Pre-Hospital Report Form Vital Signs: Pre-Hospital Report: Treatment in Route: Response to Treatment: Misc. Issues: Normal [facility] UA with Cult Rflxon 03-09-20 24 Bilirubin Ql (U) TNP Invalid Interpretation Code [facility] Comment on above: Performed By: #### 4 [id number] #### [facility] [address] [place] [address] Clarity (U) TNP Invalid Interpretation Code [facility] Comment on above: Performed By: #### 4 [id number] #### [facility] [address] [place] [address] Color (U) TNP Invalid Interpretation Code [facility] Comment on above: Result Comment: Micr oscopic readings are only performed on those samples that meet specific criteria set forth by [facility]. Performed By: #### 4 [id number] #### [facility] [address] [address] Glucose Ql (U) TNP Invalid Interpretation Code [facility] Comment on above: Performed By: #### 4 [id number] #### [facility] [address] [place] [address] Hemoglobin Auto test strip (U) [Mass/Vol] TNP Invalid Interpretation Code [facility] Comment on above: Performed By: #### 4 [id number] #### [facility] [address] [place] [address] Ketones Auto test strip Ql (U) TNP Invalid Interpretation Code [facility] Comment on above: Performed By: #### 4 [id number] #### [facility] [address] [place] [address] Leukocyte esterase Auto test strip Ql (U) TNP Invalid Interpretation Code [facility] Comment on above: Performed By: #### 4 [id number] #### [facility] [address] [place] [address] Nitrite Auto test strip Ql (U) TNP Invalid Interpretation Code [facility] Comment on above: Performed By: #### 4 [id number] #### [facility] [address] [place] [address] pH (U) TNP Invalid Interpretation Code 5.0-9.0 [facility] Comment on above: Performed By: #### 4 [id number] #### [facility] [address] [place] [address] Protein Ql (U) TNP Invalid Interpretation Code [facility] Comment on above: Performed By: #### 4 [id number] #### [facility] [address] [place] [address] Specific gravity (U) [Rel density] TNP Invalid Interpretation Code 1.005-1.030 [facility] Comment on above: Performed By: #### 4 [id number] #### [facility] [address] [place] [address] Urobilinogen (U) [Mass/Vol] TNP Invalid Interpretation Code [facility] Comment on above: Performed By: #### 4 [id number] #### [facility] [address] [place] [address] Type of Urine collection method Clean Catch Normal [facility] Comment on above: Performed By: #### 4 [id number] #### [facility] [address] [place] [address] URINALYSISOrdered By: Nell López on 03-09-2024 Bacteria LM Ql (Urine sed) 2+ /HPF Invalid Interpretation Code Trace/HPF [facility] Comment on above: Result Comment: Urin e dipstick chemistry results may be inaccurate due to intense urine color. Bilirubin Ql (U) TNP Invalid Interpretation Code [facility] Auto SS Bilirubin Ql (U) Negative 2 (03/09/24 2:14 PM) Normal Negative [facility] Comment on above: Result Comment: Urin e dipstick chemistry results may be inaccurate due to intense urine color. Clarity (U) TNP Invalid Interpretation Code [facility] Clarity (U) Turbid 16 *ABN* (03/09/24 2:14 PM) Invalid Interpretation Code Clear [facility] Comment on above: Result Comment: Urin e dipstick chemistry results may be inaccurate due to intense urine color. Color (U) TNP Invalid Interpretation Code [facility] Comment on above: Interpretive Data: M icroscopic readings are only performed on those samples that meet specific criteria set forth by [facility]. Color (U) Red 4 *ABN* (03/09/24 2:14 PM) Invalid Interpretation Code Yellow [facility] Comment on above: Result Comment: Urin e dipstick chemistry results may be inaccurate due to intense urine color. Epithelial cells.squamous LM.HPF (Urine sed) [#/Area] 0-2 /HPF Normal [facility] Comment on above: Result Comment: Urin e dipstick chemistry results may be inaccurate due to intense urine color. Glucose Ql (U) TNP Invalid Interpretation Code [facility] Glucose Ql (U) Negative Normal Negativemg/ dL [facility] Comment on above: Result Comment: Urin e dipstick chemistry results may be inaccurate due to intense urine color. Hemoglobin Auto test strip (U) [Mass/Vol] TNP Invalid Interpretation Code [facility] Hemoglobin Auto test strip (U) [Mass/Vol] 3+ 15 *ABN* (03/09/24 2:14 PM) Invalid Interpretation Code Negative [facility] Comment on above: Result Comment: Urin e dipstick chemistry results may be inaccurate due to intense urine color. Ketones Auto test strip Ql (U) TNP Invalid Interpretation Code [facility] Ketones Ql (U) Negative Normal Negativemg/ dL [facility] Comment on above: Result Comment: Urin e dipstick chemistry results may be inaccurate due to intense urine color. Leukocyte esterase Auto test strip Ql (U) TNP Invalid Interpretation Code [facility] Leukocyte esterase Auto test strip Ql (U) 2+ Conrad/uL Invalid Interpretation Code NegativeLeu /uL [facility] Comment on above: Result Comment: Urin e dipstick chemistry results may be inaccurate due to intense urine color. Nitrite Auto test strip Ql (U) TNP Invalid Interpretation Code [facility] Nitrite Auto test strip Ql (U) Positive Invalid Interpretation Code Negativemg/ dL [facility] Comment on above: Result Comment: Urin e dipstick chemistry results may be inaccurate due to intense urine color. pH (U) TNP Invalid Interpretation Code 5.0 - 9.0 [facility] pH (U) 6.0 17 *NA* (03/09/24 2:14 PM) Invalid Interpretation Code 5.0 - 9.0 [facility] Comment on above: Result Comment: Urin e dipstick chemistry results may be inaccurate due to intense urine color. Protein Ql (U) TNP Invalid Interpretation Code [facility] Auto SS Protein Ql (U) 3+ 9 *ABN* (03/09/24 2:14 PM) Invalid Interpretation Code Negative [facility] Comment on above: Result Comment: Urin e dipstick chemistry results may be inaccurate due to intense urine color. RBC Ql (U) >75 /HPF Invalid Interpretation Code 0-3/HPF [facility] Comment on above: Result Comment: Urin e dipstick chemistry results may be inaccurate due to intense urine color. Specific gravity (U) [Rel density] TNP Invalid Interpretation Code 1.005 - 1.030 [facility] Specific gravity (U) [Rel density] >=1.030 18 *NA* (03/09/24 2:14 PM) Invalid Interpretation Code 1.005 - 1.030 [facility] Comment on above: Result Comment: Urin e dipstick chemistry results may be inaccurate due to intense urine color. UA Spec Desc Clean Catch 14 (03/09/24 2:14 PM) Normal [facility] Comment on above: Result Comment: Urin e dipstick chemistry results may be inaccurate due to intense urine color. Urobilinogen (U) [Mass/Vol] TNP Invalid Interpretation Code [facility] Urobilinogen Qn (U) 0.1791318 {Court'U}/dL Normal 0.0 - 1.0 EU/dL [facility] Comment on above: Result Comment: Urin e dipstick chemistry results may be inaccurate due to intense urine color. WBC LM.HPF (Urine sed) [#/Area] 6-15 /HPF Invalid Interpretation Code 0-5/HPF [facility] Comment on above: Result Comment: Urin e dipstick chemistry results may be inaccurate due to intense urine color. URINALYSISOrdered By: Delia Nguyen on 03-09-2024 UA Spec Desc Clean Catch (03/09/24 2:14 PM) Normal [facility]A Auto SS Work Phone: eGFRon 03-09-2024 eGFR 88 mL/min/1.73 m2 Normal >=59 [facility] Comment on above: Order Comment: Order added by Discern Expert. Performed By: #### 1 [id number] #### [facility] [address] [place] [address] Urineon 03-06-2024 Bacteria identified Cx Nom (U) Microbiology PROCEDURE: Urine Culture [R1] SOURCE: U CleanCatch BODY SITE: COLLECTED DATE/TIME: 03/04/2024 12:08 EDT RECEIVED DATE/TIME: 03/04/2024 13:34 EDT START DATE/TIME: 03/04/2024 13:34 EDT FREE TEXT SOURCE: Todd Fleming DO, DO, John FINAL REPORTS Final Report [] Verified Date/Time: 03/06/2024 11:08 EDT 75,000 cfu/ml Escherichia coli SUSCEPTIBILITY RESULTS LEGEND: S=Susceptible, N/R=Not Reported, Blank=Data not available, or drug not advisable or tested, I=Intermediate, ESBL=Extended spectrum beta-lactamase, R=Resistant, TFG=Thymidine-dependent strain, LAZ=Beta-lactamase positive, MOSES=mcg/m;(mg/L), S*=Predicted susceptible interp, R*=Predicted resistant interp EC Antibiotic MOSES Dilutn MOSES Interp Ampicillin <=8 S Ampicillin/ <=8/4 S Sulbactam Aztreonam <=4 S Cefazolin <=2 S Cefepime <=2 S Ceftazidime <=1 S Ceftazidime/ <=8 S Avibactam Ceftriaxone <=1 S Cefuroxime <=4 S Ciprofloxacin <=0.25 S Ertapenem <=0.5 S Gentamicin <=2 S Levofloxacin <=0.5 S Meropenem <=1 S Nitrofurantoin <=32 S Piperacillin/ <=8 S Tazobactam Tetracycline <=4 S Tobramycin <=2 S Trimethoprim/ <=2/38 S Sulfa Performing Locations R1: This test was performed at: [facility], [address] [place] [address], [phone] , , [facility] Comment on above: Performed By: #### 2 [id number] #### [facility] [address] [place] [address] Consent for Treatmenton Consent for Treatment [id number] [facility] Discharge Instructionson Discharge Instructions [id number] Normal [facility] ED Clinical Summaryon 2023 ED Clinical Summary (Inserted Image. Tammy ble to display) [address] [address] ED Clinical Summary Person Information Name: JANA CABALLERO/[place] Alfredo Age: 53 Years : 1970 Sex: Female Language: Syrian PCP: Brigitte Carpenter Marital Status: Phone: [phone] Visit Id: Visit Reason: Dysuria; Nausea; Flank pain; BLOOD IN URINE Speciality: Acuity: 3 Enc Type: Emergency Med Service: Emergency Arrival: 03/04/2024 11:53:50 Discharge: 03/04/2024 13:38:08 LOS: 000 01:45 Checkin: 03/04/2024 11:53:50 Checkout: 03/04/2024 13:38:08 Dispo Type: Home (Routine DC) EVENTS: Event Name Event Status Request Date/Time Start Date/Time Complete Date/Time Arrive Complete 03/04/2024 11:53:50 03/04/2024 11:53:50 03/04/2024 11:53:50 Document Home Meds Request 03/04/2024 11:53:50 Triage Complete 03/04/2024 11:53:50 03/04/2024 12:01:35 03/04/2024 12:01:35 Bed Assign Complete 03/04/2024 11:58:30 03/04/2024 11:58:30 03/04/2024 11:58:30 Dr Exam Complete 03/04/2024 11:58:30 03/04/2024 11:58:42 03/04/2024 11:58:42 RN Exam Complete 03/04/2024 11:58:30 03/04/2024 12:12:36 03/04/2024 12:12:36 Registration Complete 03/04/2024 11:58:42 03/04/2024 12:05:19 03/04/2024 12:05:19 Pending Labs Complete 03/04/2024 12:02:43 03/04/2024 12:42:42 X-Ray Complete 03/04/2024 12:02:43 03/04/2024 12:14:03 03/04/2024 12:30:13 Reg Complete Request 03/04/2024 12:05:19 Reg Bed Request Complete 03/04/2024 12:05:19 03/04/2024 12:05:19 03/04/2024 12:05:19 Wet Read Complete 03/04/2024 12:30:13 03/04/2024 13:05:09 03/04/2024 13:05:09 Pending Labs Inlab 03/04/2024 12:42:43 03/04/2024 12:42:43 Lab Inlab 03/04/2024 12:42:43 03/04/2024 12:42:43 Discharge Complete 03/04/2024 13:06:46 03/04/2024 13:38:15 03/04/2024 13:38:15 Transfer Complete 03/04/2024 13:38:15 03/04/2024 13:38:15 03/04/2024 13:38:15 ADDRESS: [address] [facility] [id number] PHYS DOC NOTES: MEDICAL INFORMATION: Prescriptions Given: New Medications [id number], [address] [place], [place] [id number], [phone] cephalexin (Keflex 500 mg Cap) 1 Capsules By Mouth every 12 hours for 7 Days. Refills: 0. Medications to Continue Taking That Have Changed [facility] #[id number], [address] [place], [place] [id number], [phone] START: naproxen (naproxen 500 mg Tab) 1 Tablets By Mouth 2 times a day. Take one tab by mouth two times a day. Refills: 0. START: ondansetron (Zofran 4 mg Tab) 1 Tablets By Mouth every 6 hours as needed Nausea. Take one tab by mouth every six hours as needed for nausea. Refills: 0. Other Medications START: naproxen (Naprosyn 500 mg Tab) 1 Tablets By Mouth 2 times a day as needed for pain. Refills: 0. START: ondansetron (Zofran ODT 4 mg Tab-Dis) 1 Tablets By Mouth every 8 hours as needed Nausea/Vomiting. Refills: 0. Medications to Continue with No Changes Other Medications albuterol (albuterol HFA 90 mcg/inh MDI) 2 Puffs Inhalation every 4 hours as needed for wheezing. Refills: 0. escitalopram (escitalopram 10 mg Tab) 1 Tablets By Mouth every day. Refills: 0. ferrous sulfate (ferrous sulfate 325 mg Tab) 1 Tablets By Mouth every day. Refills: 1. meclizine (meclizine 25 mg Tab) 1 Tablets By Mouth 3 times a day as needed for dizziness. Refills: 0. multivitamin with minerals (One A Day Women's Complete oral tablet) 1 Tablets By Mouth every day. Refills: 0. oxybutynin (oxybutynin 5 mg ER Tab) 1 Tablets By Mouth every day. Refills: 0. pantoprazole (Pantoprazole [address] Tab) 1 Tablets By Mouth every day. Refills: 4. psyllium (Metamucil Unflavored Smooth Texture Sugar Free 3.4 g/5.4 g oral powder) 3.4 Gram By Mouth every day. daily- stop 2-3 days if diarrhea occurs. Refills: 1. tamsulosin (Flomax 0.4 mg Cap) 1 Capsules By Mouth every day. Refills: 0. PATIENT EDUCATION INFORMATION: Instructions: Follow up: With: Address: When: Brigitte Davis [facility], [address], [place] [id number] Business (1) In 3 days DIAGNOSIS: UTI (urinary tract infection) Normal [facility] ED Note-Physicianon 03-04-20 ED Note-Physician Basic Information Time Seen: Todd Fleming DO 03/04/2024 11:58 Chief Complaint c/o bilateral flank pain x1 week. Blood in urine. Hx of kidney stones. c/o nausea no vomiting. States also having UTI symptoms. History of Present Illness 53 female presents emergency department with hematuria. Patient states that she has had this intermittently over the last several days wonders if she has UTI. She does describe some lower back pain and now has some associated hematuria. She has had some frequency of urination mild dysuria as well. She denies any abdominal pain with this has had nausea no vomiting no fevers. She states that she has had a history of kidney stones in the past and this does feel somewhat similar although it is not nearly as severe as last time she was here. She does have history of cervical cancer with numerous surgeries related to that. No other aggravating or relieving factors no other associated symptoms no other prior treatments or complaints. Family: Reviewed and noncontributory Social: lives at home Review of systems negative unless otherwise specified in the HPI. Physical Exam Vitals & Measurements HR: 80(Peripheral) RR: 16 BP: 165/79 SpO2: 97% HT: 170 cm WT: 92 kg BMI: 31.83 General: The patient appears well and in no apparent distress. Patient is resting comfortably on cart. Skin: Warm, dry, no pallor noted. Head: Normocephalic, atraumatic Neck: No JVD Eye: PERRLA, EOMI ENT: Moist mucus membranes Cardiovascular: Regular rate normal peripheral perfusion Respiratory: No respiratory distress no accessory muscle use no obvious audible wheezing Chest Wall: no deformity Musculoskeletal: normal ROM, no deformity, no swelling GI: Soft no obvious distention. No rebound or rigidity. No guarding. No tenderness. No CVA tenderness Neurological: A&O moves all extremities equal strength and symmetry Psychiatric: Cooperative and appropriate Medical Decision Making X-rays reveal no obvious ureterolithiasis. Urinalysis positive for infection patient is discharged home on Keflex naproxen for pain and Zofran for as needed nausea. She is to drink plenty of fluids and then follow-up in the outpatient setting return to ER symptoms change or symptoms. Assessment/Plan UTI (urinary tract infection) (N39.0: Urinary tract infection, site not specified) Orders: cephalexin, 500 mg = 1 cap(s), Oral, q12hr, X 7 day(s), # 14 cap(s), Refills(s) 0, Pharmacy: [facility] #[id number], 170, cm, 03/04/24 12:01:00 EDT, Height/Length Dosing, 92, kg, 03/04/24 12:01:00 EDT, Weight Dosing naproxen, 500 mg = 1 tab(s), Oral, BID, Take one tab by mouth two times a day, # 14 tab(s), Refills(s) 0, Pharmacy: [facility] #[id number], 170, cm, 03/04/24 12:01:00 EDT, Height/Length Dosing, 92, kg, 03/04/24 12:01:00 EDT, Weight Dosing ondansetron, 4 mg = 1 tab(s), Oral, q6hr, PRN Nausea, Take one tab by mouth every six hours as needed for nausea, # 10 tab(s), Refills(s) 0, Pharmacy: [facility] #[id number], 170, cm, 03/04/24 12:01:00 EDT, Height/Length Dosing, 92, kg, 03/04/24 12:01:00 EDT, Weight Dosing UA with Cult Rflx Urine Culture XR Abdomen 1 View Disposition Plan Discharge Prescription List Prescriptions Keflex 500 mg Cap, 500 mg= 1 cap(s), Oral, q12hr naproxen 500 mg Tab, 500 mg= 1 tab(s), Oral, BID Zofran 4 mg Tab, 4 mg= 1 tab(s), Oral, q6hr, PRN Follow-up With When Contact Information Brigitte Garcia In 3 days [address], [address] [facility] [address] [address]- Business (1) Additional Instructions: Problem List/Past Medical History Ongoing Abdominal fullness Abdominal pain Acute constipation Allergic rhinitis Anemia Bronchitis Discoloration of skin of toe Dizziness E-coli UTI Exposure to COVID-19 virus Fatigue Flank pain Former smoker Frequency of urination LALO (generalized anxiety disorder) Gastroesophageal reflux disease Hematuria Hiatal hernia History of cervical cancer History of kidney stones Hydronephrosis with urinary obstruction due to ureteral calculus kidney stones Malignant tumor of cervix Mild recurrent major depression Nausea in adult Nicotine dependence, cigarettes, in remission Nocturia Onychia, toe Onychomycosis Other urethral stricture, female Paresthesia Recurrent headache Renal calculus, right Screening for colon cancer Screening for diabetes mellitus Screening for lipid disorders Smoker Vertigo Wellness examination Historical Anemia due to unknown mechanism Cervical cancer Chemotherapy Hernia migraines Radiation Procedure/Surgical History Cystoscopy (03/07/2020), :LEEP, exam under anesthesia (10/06/2016), hernia repair (11/25/2015), incisional hernia repair (05/13/2015), (2003), Tubal ligation (2003), Cancer cervix screening - up-to-date, lymph nodes removed from abdomen, T&A, urethra dialation. Medications Inpatient No active inpatient medications Home albuterol HFA 90 mcg/inh MDI, 2 puff(s), Inhalation, q4h (more content not included)... Normal [facility] Comment on above: Result Comment: Elec tronically Signed By: Todd Fleming DO\.br\Date and Time Signed: 03/04/24 13:07 EDT ED Patient Education Noteon 03-04-2024 ED Patient Education Note Normal [facility] ED Patient Summaryon 024 ED Patient Summary (Inserted Image. Tammy ble to display) [address] [address] Patient Discharge Instructions Person Information Name: JANA CABALLERO Age: 53 Years Arrival Date: 03/04/2024 11:53:50 Discharge Diagnosis: UTI (urinary tract infection) Primary Care Physician: Brigitte Carpenter Provider Information Primary Provider: Todd Fleming DO Advanced Asset Management Analyst:None The exam and treatment you received in the Emergency Department were for an urgent problem and are not intended as complete care. It is important that you follow up with a doctor, nurse practitioner, or physician?s accounting administrative assistant for ongoing care. If your symptoms become worse or you do not improve as expected and you are unable to reach your usual health care provider, you should return to the Emergency Department. We are available 24 hours a day. JANA CABALLERO has been given the following list of patient education materials, prescriptions and follow-up instructions: Follow-up Instructions: With: Address: When: Brigitte Garcia [address] [facility], [address], [place] [id number] Business (1) In 3 days In the event that this physician does not participate in your insurance network, please consult with your insurance company to find a nearby participating provider. Patient Education Materials: A MESSAGE TO ALL PATIENTS REGARDING OPIOIDS PRESCRIPTION OPIOIDS: WHAT YOU NEED TO KNOW Prescription opioids can be used to help relieve jubmjggs-au-iqkmlq pain and are often prescribed following a surgery or injury, or for certain health conditions. These medications can be an important part of the treatment but also come with serious risks. It is important to work with your healthcare provider to make sure you are getting the safest, most effective care. WHAT ARE THE RISKS AND SIDE EFFECTS OF OPIOID USE? Prescription opioids carry serious risks of addiction and overdose, especially with prolonged use. An opioid overdose, often marked by slowed breathing, can cause sudden . The use of prescription opioids can have a number of side effects as well, even when taken as directed: ? Tolerance?meaning you might need to take more of the medication for the same pain relief ? Physical dependence?meaning you have symptoms of withdrawal when a medication is stopped ? Increased sensitivity to pain ? Constipation ? Nausea, vomiting, and dry mouth ? Sleepiness and dizziness ? Confusion ? Depression ? Low levels of testosterone that can result in lower sex drive, energy, and strength ? Itching and sweating RISKS ARE GREATER WITH: ? History of drug misuse, substance use disorder, or overdose ? Mental health conditions (such as depression or anxiety) ? Sleep apnea ? Older age (65 years and older) ? Avoid alcohol while taking prescription opioids. Also, unless specifically advised by your health care provider, medications to avoid include: ? Benzodiazepines (such as Xanax or Valium) ? Muscle relaxants (such as Soma or Flexeril) ? Hypnotics (such as Ambien or Lunesta) ? Other prescription opioids KNOW YOUR OPTIONS Talk to your health care provider about ways to manage your pain that don?t involve prescription opioids. Some of these options may actually work better and have fewer risks and side effects. Options may include: ? Pain relievers such as acetaminophen, ibuprofen, and naproxen ? Some medication that are also used for depression or seizures ? Physical therapy and exercise ? Cognitive behavioral therapy, a psychological, goal-directed approach, in which patients learn how to modify physical, behavioral, and emotional triggers of pain and stress. IF YOU ARE PRESCRIBED OPIOIDS FOR PAIN: ? Never take opioids in greater amounts or more often than prescribed. ? Follow up with your primary health care provider. o Work together to create a plan on how to manage your pain. o Talk about ways to help manage your pain that don?t involve prescription opioids. o Talk about any and all concerns and side effects. ? Help prevent misuse and abuse o Never sell or share prescription opioids. o Never use another person?s prescription opioids. ? Store prescription opioids in a secure place and out of reach of others (this may include visitors, children, friends, and family). ? Safely dispose of unused prescription opioids: Find your community drug take-back program or your pharmacy mail-back program, or flush them down the toilet, following guidance from the Food and Drug Administration (www.fda.gov/Drugs/Resource sForYou). ? Visit www.cdc.gov/drugoverdose to learn about the risks of opioids abuse and overdose. ? If you believe you may be struggling with addiction, tell your health neonatal critical care nurse and ask for guidance or call [facility] National Helpline at 0-675-815-OAAT. j Source: [place] Department of Health and (more content not included)... Normal [facility] UA with Cult Rflxon 03-04-20 24 Bilirubin Ql (U) Negative Normal Negative [facility] Comment on above: Performed By: #### 4 [id number] #### [facility] [address] [place] [address] Clarity (U) Ex.Turbid Abnormal Clear [facility] Comment on above: Performed By: #### 4 [id number] #### [facility] [address] [place] [address] Color (U) Brown Abnormal Yellow [facility] Comment on above: Result Comment: Micr oscopic readings are only performed on those samples that meet specific criteria set forth by [facility]. Performed By: #### 4 [id number] #### [facility] [address] [place] [address] Epithelial cells.squamous Auto (Urine sed) [#/Area] 5-8 Abnormal 0-2 [facility] Comment on above: Performed By: #### 4 [id number] #### [facility] [address] [place] [address] Glucose Ql (U) Negative Normal Negative [facility] Comment on above: Performed By: #### 4 [id number] #### [facility] [address] [place] [address] Hemoglobin Auto test strip (U) [Mass/Vol] 3+ mg/dL Abnormal Negative [facility] Comment on above: Performed By: #### 4 [id number] #### [facility] [address] [place] [address] Ketones Auto test strip Ql (U) Negative Normal Negative [facility] Comment on above: Performed By: #### 4 [id number] #### [facility] [address] [place] [address] Leukocyte esterase Auto test strip Ql (U) 250 Conrad/uL Abnormal Negative [facility] Comment on above: Performed By: #### 4 [id number] #### [facility] [address] [place] [address] Mucus Auto Ql (U) Negative Normal Negative [facility] Comment on above: Performed By: #### 4 [id number] #### [facility] [address] [place] [address] Nitrite Auto test strip Ql (U) Negative Normal Negative [facility] Comment on above: Performed By: #### 4 [id number] #### [facility] [address] [place] [address] pH (U) 6.5 [pH] Invalid Interpretation Code 5.0-9.0 [facility] Comment on above: Performed By: #### 4 [id number] #### [facility] [address] [place] [address] Protein Ql (U) 1+ mg/dL Abnormal Negative [facility] Comment on above: Performed By: #### 4 [id number] #### [facility] [address] [place] [address] RBC Ql (U) >75 Abnormal 0-3 [facility] Comment on above: Performed By: #### 4 [id number] #### [facility] [address] [place] [address] Specific gravity (U) [Rel density] 1.015 Invalid Interpretation Code 1.005-1.030 [facility] Comment on above: Performed By: #### 4 [id number] #### [facility] [address] [place] [address] Urobilinogen (U) [Mass/Vol] Negative Normal Negative [facility] Comment on above: Performed By: #### 4 [id number] #### [facility] [address] [place] [address] WBC Auto (Urine sed) [#/Area] 31-75 Abnormal 0-5 [facility] Comment on above: Performed By: #### 4 [id number] #### [facility] [address] [place] [address] Type of Urine collection method Clean Catch Normal [facility] Comment on above: Performed By: #### 4 [id number] #### [facility] [address] [place] [address] URINALYSISOrdered By: SYSTEM SYSTEM on 03-04-2024 Bilirubin Ql (U) Negative Normal Negativemg/ dL [facility] UA Auto SS Clarity (U) Ex.Turbid *ABN* (03/04/24 12:08 PM) Invalid Interpretation Code Clear [facility] UA Auto SS Color (U) Brown 1 *ABN* (03/04/24 12:08 PM) Invalid Interpretation Code Yellow [facility] UA Auto SS Comment on above: Interpretive Data: M icroscopic readings are only performed on those samples that meet specific criteria set forth by [facility]. Epithelial cells.squamous Auto (Urine sed) [#/Area] 5-8 graded/HPF Invalid Interpretation Code 0-2graded/H PF [facility] UA Auto SS Glucose Ql (U) Negative Normal Negativemg/ dL [facility] UA Auto SS Hemoglobin Auto test strip (U) [Mass/Vol] 3+ mg/dL Invalid Interpretation Code Negativemg/ dL [facility] UA Auto SS Ketones Auto test strip Ql (U) Negative Normal Negativemg/ dL [facility] UA Auto SS Leukocyte esterase Auto test strip Ql (U) 250 Conrad/uL Conrad/uL Invalid Interpretation Code NegativeLeu /uL [facility] UA Auto SS Mucus Auto Ql (U) Negative Normal Negativegr a ded/LPF [facility] UA Auto SS Nitrite Auto test strip Ql (U) Negative Normal Negativemg/ dL [facility] UA Auto SS pH (U) 6.5 *NA* (03/04/24 12:08 PM) Invalid Interpretation Code 5.0 - 9.0 [facility] UA Auto SS Protein Ql (U) 1+ mg/dL Invalid Interpretation Code Negativemg/ dL [facility] Auto SS RBC Ql (U) >75 graded/HPF Invalid Interpretation Code 0-3graded/H PF [facility] UA Auto SS Specific gravity (U) [Rel density] 1.015 *NA* (03/04/24 12:08 PM) Invalid Interpretation Code 1.005 - 1.030 [facility]A Auto SS Urobilinogen (U) [Mass/Vol] Negative Normal Negativemg/ dL [facility] UA Auto SS WBC Auto (Urine sed) [#/Area] 31-75 graded/HPF Invalid Interpretation Code 0-5graded/H PF [facility] UA Auto SS URINALYSISOrdered By: Todd alvarado on 03-04-2024 UA Spec Desc Clean Catch (03/04/24 12:08 PM) Normal [facility] UA Auto SS Work Phone: XR Abdomen 1 Viewon 03-04-20 XR Abdomen 1 View Exam Date/Time: 03/04/2024 12:30 EDT Reason for Exam: Constipation Report IMPRESSION: RIGHT RENAL CALCULI. CONSTIPATION. CLINICAL HISTORY: Constipation COMPARISON: CT abdomen pelvis, December 12, 2023. FINDINGS: Gas and copious stool in colon. Gas in small bowel. No focal or diffuse small bowel dilatation or mass effect. Cluster of calcifications again identified, upper pole right kidney measuring up to 3 mm. Surgical clip visualized in pelvis. Mild associated scoliosis with superior convexity to right apex at L1 and caudal convexity at L4 to the left. Ordering Provider: Todd Fleming FINAL REPORT Dictated: 03/04/2024 1:43 pm Nahum Monson MD Signed (Electronic Signature): 03/04/2024 1:43 pm Signed by: Nahum Monson MD Transcribed by: JG Technologist: SAHIL Technical Comments Radiation Dose: Ka,r in mGy = . DAP = . Normal [facility] C Urineon 01-06-2024 Bacteria identified Cx Nom (U) Microbiology PROCEDURE: Urine Culture [R1] SOURCE: U CleanCatch BODY SITE: COLLECTED DATE/TIME: 01/04/2024 10:59 EDT RECEIVED DATE/TIME: 01/04/2024 17:47 EDT START DATE/TIME: 01/04/2024 17:47 EDT FREE TEXT SOURCE: Brigitte Carpenter, Brigitte Moss FINAL REPORTS Final Report [] Verified Date/Time: 01/06/2024 09:33 EDT 200 cfu/ml Mixed skin contaminants Performing Locations R1: This test was performed at: [facility], [address] [place] [address], [id number] , [place], Normal [facility] Comment on above: Performed By: #### 2 [id number] ####[facility] [address] [place] [address] Family Medicine Office/Clini c Noteon 01-06-2024 Family Medicine Office/Clinic Note Chief Complaint ER f/u 12/22 and 12/24 UTI and kidney stones HPI Staff Recent for Visit: ER followup [place] [facility] [place] date: 12/22 and 12/24 Symptoms the patient presented with: Dx-Kidney Stones and UTI History of Present Illness Jana Caballero is a 53-year-old female who I established care with on 12/08/2023, presents for evaluation of multiple medical concerns. Urinary tract infection and renal calculi. The patient has been seen in the emergency department three times, on 12/12/2023, 12/23/2023, and 12/25/2023. She underwent laboratory work, a CT scan, and ultrasound imaging which revealed the likely passing of recent stones on the right side. There was no sign of obstruction, but small bladder calculi were observed in the bladder, along with some right-sided hydronephrosis. She was prescribed antibiotics due to the presence of +3 leukocyte esterase, white blood cells, bacteria, and blood with positive nitrates on 12/12/2023. Initially, she was given Keflex 500 mg, Zofran, and a few oxycodone with acetaminophen. On 12/23/2023, she returned with ongoing right flank pain and hematuria, having completed the Keflex course. Another prescription of Keflex was given on that day following an ultrasound which showed improvement in the resolution of hydronephrosis, along with a small chronic right calyceal collection and non-obstructing calculi on the right upper pole of the kidney. On 12/25/2023, she reported worsening pain, suspected stone passage, significant nausea, and hematuria. She expressed dissatisfaction with Percocet's side effects and opted for NSAIDs for pain relief. Prescriptions for oxybutynin, tramadol, and Zofran were provided for home use, along with a Toradol injection in the emergency department. Urinalysis on that day indicated 1+ bacteria, 0-5 white blood cells, over 75 red blood cells, trace leukocyte esterase, +3 blood, negative bilirubin, ketones, and glucose, +2 protein, specific gravity of 1.020, pH of 6.0. Mild anemia was noted in the laboratory evaluation on 12/25/2023, with normal renal function. She was advised to schedule an appointment with Dr. Mayco Hernandez from the urology team and to follow up with the current healthcare provider. Presently, her vital signs are within normal limits. Hematuria. She presents with ongoing urinary symptoms, such as back pain, fever, and chills. Hematuria was reported during the initial week of her emergency room visit, with the presence of dark puddles in the toilet and audible urethral popping. She reports that she continues to experience pain and a concurrent urinary tract infection. She is currently prescribed Keflex and Flomax for the treatment of kidney stones, with some remaining. She requests a refill of these medications. She also reports experiencing headaches, which she manages with Tylenol and ibuprofen. Constipation. She presents with symptoms of constipation, reporting the sensation of a lump during bowel movements. She described her stools as firm, with intermittent episodes of diarrhea lasting one to two days, followed by hard stools. She states that she avoids specific types of meat due to associated discomfort and has experienced a weight loss of 4 pounds attributed to a diminished sense of taste. Anxiety. During counseling sessions at the same facility as her grandson, she reports finding the counseling beneficial for her mental, physical, and emotional well-being. She discloses that her grandson is struggling with suicidal thoughts. She expresses her ability to openly discuss family matters with her healthcare providers. She mentions that if she ever feels like she may harm herself, she would prioritize her grandson's safety by making arrangements for him to be with his parents or seek social support. She admits feeling mentally drained and her counselor has recommended medication, although she is hesitant to take it. She reports experiencing increased anxiety and restlessness. Cervical cancer. She also presents with a medical history of cervical cancer. She is currently seeking information regarding the potential eligibility for disability and social security benefits. It should be noted that she has been unable to engage in any work activities since the of her grandson. She is currently receiving kinship support and is also benefiting from food assistance. Her oncologist has informed her about the presence of severe health concerns. Her last treatment, which involved radiation and chemotherapy, took place approximately 6 years ago. She is currently receiving kinship support and is also benefiting from food assistance. Her grandsons have ADHD and anxiety. Keflex. Flomax. Oxybutynin. Tramadol. Zofran. Review of Systems PHQ Score Initial Depression Screen Score: 0 SCORE The pertinent positive and negative findings are as noted in the HPI. Physical Exam Vitals & Measurements T: 36.5 ?C(Temporal Artery) HR: 60(Peripheral) RR: 18 BP: 122/76 SpO2: 97% HT: 67 in HT: 17 (more content not included)... Normal [facility] Comment on above: Result Comment: Elec tronically Signed By: Brigitte Carpenter\.br\Date and Time Signed: 01/06/24 05:25 EDT\.br\Electronically Co-Signed By: Countess Oniel Corona\.br\Date and Time Co-Signed: 01/04/24 14:01 EDT Ambulatory Visit Summaryon 0 01-04-2024 Ambulatory Visit Summary CABALLEROJANA PERKINS Moraima :1970 Visit Date:01/04/2024 Ambulatory Visit Instructions Your Diagnosis Hematuria Renal calculus, right E-coli UTI Acute constipation Adult BMI 31.0-31.9 kg/sq m Other obesity Generalized anxiety disorder Unspecified Escherichia coli [E. coli] as the cause of diseases classified elsewhere Your Care Team Attending Physician - Brigitte Carpenter Primary Care Physician - Brigitte Carpenter This Is Your Medications List escitalopram (escitalopram 10 mg Tab) ondansetron (Zofran ODT 4 mg Tab-Dis) oxybutynin (oxybutynin 5 mg ER Tab) psyllium (Metamucil Unflavored Smooth Texture Sugar Free 3.4 g/5.4 g oral powder) tamsulosin (Flomax 0.4 mg Cap) Contact prescribing physician if questions or concerns albuterol (albuterol HFA 90 mcg/inh MDI) ferrous sulfate (ferrous sulfate 325 mg Tab) meclizine (meclizine 25 mg Tab) multivitamin with minerals (One A Day Women's Complete oral tablet) naproxen (Naprosyn 500 mg Tab) pantoprazole (Pantoprazole [address] Tab) Procedures Performed Cystoscopy (03/07/2020), :LEEP, exam under anesthesia (10/06/2016), hernia repair (11/25/2015), incisional hernia repair (05/13/2015), (2003), Tubal ligation (2003), Cancer cervix screening - up-to-date, lymph nodes removed from abdomen, T&A, urethra dialation. Discharge Vitals Temperature (Temporal Artery) 36.5 ?C Heart Rate (Peripheral) 60 Respiratory Rate 18 Blood Pressure 122/76 Height 170 cm Height 67 in Weight 90.6 kg Weight 199.32 lb BMI 31.35 What to do next Scheduled Follow-Up Appointments 2023 10:40 AM EDT With: Brigitte Carpenter Where: [facility] Patient Educationon 01-04-20 24 Patient Education Gastroenterology Constipation, Adult Constipation is when a person has fewer than three bowel movements in a week, has difficulty having a bowel movement, or has stools (feces) that are dry, hard, or larger than normal. Constipation may be caused by an underlying condition. It may become worse with age if a person takes certain medicines and does not take in enough fluids. Follow these instructions at home: Eating and drinking ? Eat foods that have a lot of fiber, such as beans, whole grains, and fresh fruits and vegetables. ? Limit foods that are low in fiber and high in fat and processed sugars, such as fried or sweet foods. These include guinean fries, hamburgers, cookies, candies, and soda. ? Drink enough fluid to keep your urine pale yellow. General instructions ? Exercise regularly or as told by your health care provider. Try to do 150 minutes of moderate exercise each week. ? Use the bathroom when you have the urge to go. Do not hold it in. ? Take mffz-slq-houleik and prescription medicines only as told by your health care provider. This includes any fiber supplements. ? During bowel movements: ? Practice deep breathing while relaxing the lower abdomen. ? Practice pelvic floor relaxation. ? Watch your condition for any changes. Let your health care provider know about them. ? Keep all follow-up visits as told by your health care provider. This is important. Contact a health care provider if: ? You have pain that gets worse. ? You have a fever. ? You do not have a bowel movement after 4 days. ? You vomit. ? You are not hungry or you lose weight. ? You are bleeding from the opening between the buttocks (anus). ? You have thin, pencil-like stools. Get help right away if: ? You have a fever and your symptoms suddenly get worse. ? You leak stool or have blood in your stool. ? Your abdomen is bloated. ? You have severe pain in your abdomen. ? You feel dizzy or you faint. Summary ? Constipation is when a person has fewer than three bowel movements in a week, has difficulty having a bowel movement, or has stools (feces) that are dry, hard, or larger than normal. ? Eat foods that have a lot of fiber, such as beans, whole grains, and fresh fruits and vegetables. ? Drink enough fluid to keep your urine pale yellow. ? Take tgrk-itv-yhzxlfl and prescription medicines only as told by your health care provider. This includes any fiber supplements. This information is not intended to replace advice given to you by your health care provider. Make sure you discuss any questions you have with your health care provider. Document Revised: 07/30/2020 Document Reviewed: 07/30/2020 [employer] Patient Education ? 2022 [employer] Nephrology Dietary Guidelines to Help Prevent Kidney Stones Kidney stones are deposits of minerals and salts that form inside your kidneys. Your risk of developing kidney stones may be greater depending on your diet, your lifestyle, the medicines you take, and whether you have certain medical conditions. Most people can lower their risks of developing kidney stones by following these dietary guidelines. Your dietitian may give you more specific instructions depending on your overall health and the type of kidney stones you tend to develop. What are tips for following this plan? Reading food labels ? Choose foods with no salt added or low-salt labels. Limit your salt (sodium) intake to less than 1,500 mg a day. ? Choose foods with calcium for each meal and snack. Try to eat about 300 mg of calcium at each meal. Foods that contain 200?500 mg of calcium a serving include: ? 8 oz (237 mL) of milk, jvlpxcl-wyxvjtzcyaci-jyicu milk, and calcium-fortifiedfruit juice. Calcium-fortified means that calcium has been added to these drinks. ? 8 oz (237 mL) of kefir, yogurt, and soy yogurt. ? 4 oz (114 g) of tofu. ? 1 oz (28 g) of cheese. ? 1 cup (150 g) of dried figs. ? 1 cup (91 g) of cooked broccoli. ? One 3 oz (85 g) can of sardines or mackerel. Most people need 1,000?1,500 mg of calcium a day. Talk to your dietitian about how much calcium is recommended for you. Shopping ? Buy plenty of fresh fruits and vegetables. Most people do not need to avoid fruits and vegetables, even if these foods contain nutrients that may contribute to kidney stones. ? When shopping for convenience foods, choose: ? Whole pieces of fruit. ? Pre-made salads with dressing on the side. ? Low-fat fruit and yogurt smoothies. ? Avoid buying frozen meals or prepared deli foods. These can be high in sodium. ? Look for foods with live cultures, such as yogurt and kefir. ? Choose high-fiber grains, such as whole-wheat breads, oat bran, and wheat cereals. Cooking ? Do not add salt to food when cooking. Place a salt shaker on the table and allow each person to add their own salt to taste. ? Use vegetable protein, such as beans, textured vege (more content not included)... [facility] Physician Referralon 024 Physician Referral [phone] [id number] [facility] ED Note-Physicianon 12-26-19 24 ED Note-Physician Basic Information Time Seen: Gustavo BRIONES, Wes James 12/25/2023 19:11 Chief Complaint Pt. came here d/t R flank pain that started to get worst 2 days ago, complaints of nausea, got blood in her urine and passed out stone yesteray. Hx of Kidney stone. Took Naproxen and Ibuprofen this AM. History of Present Illness A 53-year-old female reports to the emergency department with chief complaint of right-sided flank pain. Reports has been going on for the last 2 days. Reports worsening nausea. Reports blood in urine, and thinks that she may have passed a stone yesterday. Reports history of kidney stones. Reports been taking ibuprofen and naproxen with relief. Reports that she does have Percocet at home has not been taking it because she wants to be aware of her surroundings. States that she is on Flomax currently. Has not follow-up with a urologist yet. Review of Systems A 10 point review of systems is negative except as noted above. Medical and Surgical History: Reviewed and noted Social history: Lives at home Family History: Reviewed. Tobacco: Denies, former Physical Exam Vitals & Measurements T: 36.8 ?C(Oral) HR: 60(Monitored) RR: 16 BP: 122/80 SpO2: 98% HT: 170 cm WT: 92 kg BMI: 31.83 General: The patient appears well and in no apparent distress. Patient is resting comfortably in chair. afebrile Skin: Warm, dry, no pallor noted. Head: Normocephalic, atraumatic Neck: No JVD Eye: PERRLA, EOMI ENT: Moist mucus membranes Cardiovascular: Regular rate normal peripheral perfusion Respiratory: No respiratory distress no accessory muscle use no obvious audible wheezing Chest Wall: no deformity Musculoskeletal: normal ROM, no deformity, no swelling GI: No obvious distention soft. With no rebound tenderness or guarding noted of the abdomen. Positive right-sided CVA tenderness. Neurological: A&O moves all extremities equal strength and symmetry Psychiatric: Cooperative and appropriate Medical Decision Making MEDICAL DECISION MAKING Number and Complexity of Problems Differential Diagnosis: [] [facility] Data External documents reviewed: [] My EKG interpretation: [] My CT interpretation: [] My X-ray interpretation: [] My Ultrasound interpretation: [] Decision rules/scores evaluated: [] Discussed with: [] Treatment and Disposition ED Course: 53-year-old female reports emerged department chief complaint right-sided flank pain. Reports that she thinks that she may have passed a kidney stone, but still having bilateral flank pain. Once on the for some pain relief. Has not been taking her Percocet because she wants to feel aware of her surroundings. States that she has most pain relief Sanjay. Physical exam is positive right-sided CVA tenderness. Due to concerns we did do lab work as well as urinalysis. Lab work reviewed and noted. No acute changes seen. Urine did show. Did have hematuria, but we will await culture, not treat as a UTI at this time. Patient treated with Toradol which did somewhat help her symptoms. For pain relief patient switched to tramadol, as well as oxybutynin. Discussed ultimately needs follow-up with urology. Discussed turn precautions. Follow-up with your primary care provider in 3 to 5 days. If symptoms worsen, do not improve, or new symptoms arise please report back to emergency department for further evaluation. The patient was understanding and agreeable to plan moving forward. Shared decision making: [] Code status: [] Assessment/Plan Right flank pain (R10.9: Unspecified abdominal pain) Orders: ketorolac, 60 mg = 2 mL, Injection, IntraMuscular, Once, Stop date 12/25/23 19:52:00 EDT, STAT, Start date 12/25/23 19:52:00 EDT, 12/25/23 19:52:00 EDT ondansetron, 4 mg = 1 tab(s), Oral, q8hr, PRN Nausea/Vomiting, # 12 tab(s), Refills(s) 0, Pharmacy: [facility] #[id number], 170, cm, 12/25/23 19:10:00 EDT, Height/Length Dosing, 92, kg, 12/25/23 19:10:00 EDT, Weight Dosing ondansetron, 4 mg = 1 tab(s), Tab-Dis, Oral, Once, Stop date 12/25/23 19:52:00 EDT, STAT, Start date 12/25/23 19:52:00 EDT, 12/25/23 19:52:00 EDT oxybutynin, 5 mg = 1 tab(s), Oral, Daily, # 30 tab(s), Refills(s) 0, Pharmacy: [facility] #[id number], 170, cm, 12/25/23 19:10:00 EDT, Height/Length Dosing, 92, kg, 12/25/23 19:10:00 EDT, Weight Dosing oxybutynin, 5 mg = 1 tab(s), Tab-ER, Oral, Once, Stop date 12/25/23 22:11:00 EDT, STAT, Start date 12/25/23 22:11:00 EDT, 12/25/23 22:11:00 EDT tramadol, 50 mg = 1 tab(s), Tab, Oral, Once, Stop date 12/25/23 22:11:00 EDT, STAT, Start date 12/25/23 22:11:00 EDT, 12/25/23 22:11:00 EDT tramadol, 50 mg = 1 tab(s), Oral, q6hr, PRN for pain, X 3 day(s), # 12 tab(s), Refills(s) 0, Pharmacy: [facility] #[id number], 170, cm, 12/25/23 19:10:00 EDT, Height/Length Dosing, 92, kg, 12/25/23 19:10:00 EDT, Weight Dosing Basic Metabolic Panel CBC w/ Auto Diff eGFR UA with Cult Rflx Medications Administered Given ketorolac 60 mg/2 mL Injection, 60 mg, IntraMuscular oxybutynin 5 mg ER (more content not included)... Normal [facility] Comment on above: Result Comment: Elec tronically Signed By: Wes Chen PA-C\.br\Date and Time Signed: 12/25/23 22:46 EDT\.br\Electronically Co-Signed By: Stefano Marino DO\.br\Date and Time Co-Signed: 12/26/23 02:16 EDT BMPon 12-25-2023 Anion gap [Moles/Vol] 13 mmol/L Normal 6-16 [facility] Comment on above: Performed By: #### 1 [id number], [id number], [id number] #### [facility] [address] [place] [address] Calcium [Mass/Vol] 8.8 mg/dL Low 8.9-11.1 [facility] Comment on above: Performed By: #### 1 [id number], [id number], [id number] #### [facility] [address] [place] [address] Chloride [Moles/Vol] 106 mmol/L Normal 101-111 [facility] Comment on above: Performed By: #### 1 [id number], [id number], [id number] #### [facility] [address] [place] [address] CO2 [Moles/Vol] 25 mmol/L Normal 21-31 [facility] Comment on above: Performed By: #### 1 [id number], [id number], [id number] #### [facility] [address] [place] [address] Creatinine [Mass/Vol] 0.8 mg/dL Normal 0.5-1.3 [facility] Comment on above: Performed By: #### 1 [id number], 5794835, 8004986 #### [facility] [address] [place] [address] Glucose [Mass/Vol] 101 mg/dL Normal 55-199 [facility] Comment on above: Performed By: #### 1 [id number], 4392701, [id number] #### [facility] [address] [place] [address] Potassium [Moles/Vol] 3.6 mmol/L Normal 3.5-5.3 [facility] Comment on above: Performed By: #### 1 [id number], [id number], [id number] #### [facility] [address] [place] [address] Sodium [Moles/Vol] 140 mmol/L Normal 135-145 [facility] Comment on above: Performed By: #### 1 [id number], 2574414, 7513759 #### [facility] [address] [place] [address] Urea nitrogen [Mass/Vol] 16 mg/dL Normal 5-21 [facility] Comment on above: Performed By: #### 1 [id number], 6187798, [id number] #### [facility] [address] [place] [address] Urea nitrogen/Creatinine [Mass ratio] 20 No Units Normal 10-20 [facility] Comment on above: Performed By: #### 1 [id number], 1922642, [id number] #### [facility] [address] [place] [address] CBC w/ Auto Diffon 4 Basophils/100 WBC (Bld) 1.1 % Normal 0.0-2.0 [facility] Comment on above: Performed By: #### 1 [id number], 9440531, 5105334 #### [facility] [address] [place] [address] Basophils/Leukocytes Auto (Bld) [Pure # fraction] 0.1 E9/L Normal 0.0-0.2 [facility] Comment on above: Performed By: #### 1 [id number], 2925714, 7413815 #### [facility] [address] [place] [address] Eosinophils (Bld) [#/Vol] 0.3 E9/L Normal 0.0-0.5 [facility] Comment on above: Performed By: #### 1 [id number], 1218882, 8303315 #### [facility] [address] [place] [address] Eosinophils/100 WBC (Bld) 3.2 % Normal 0.0-8.0 [facility] Comment on above: Performed By: #### 1 [id number], 8376414, 2283701 #### [facility] [address] [place] [address] Erythrocyte distribution width (RBC) [Ratio] 14.8 % High 10.9-14.2 [facility] Comment on above: Performed By: #### 1 [id number], 1440387, 2732029 #### [facility] [address] [place] [address] Hematocrit (Bld) [Volume fraction] 34.1 % Normal 34.0-46.0 [facility] Comment on above: Performed By: #### 1 [id number], 3964000, 8107954 #### [facility] [address] [place] [address] Hemoglobin (Bld) [Mass/Vol] 11.1 g/dL Low 12.0-16.0 [facility] Comment on above: Performed By: #### 1 [id number], 0126200, 7094962 #### [facility] [address] [place] [address] Lymphocytes (Bld) [#/Vol] 1.6 E9/L Normal 1.0-4.0 [facility] Comment on above: Performed By: #### 1 [id number], 9793618, 8827753 #### [facility] [address] [place] [address] Lymphocytes/100 WBC (Bld) 18.2 % Normal 14.0-50.0 [facility] Comment on above: Performed By: #### 1 [id number], 0801109, 4087795 #### [facility] [address] [place] [address] MCH (RBC) [Entitic mass] 27.7 pg Normal 27.0-34.0 [facility] Comment on above: Performed By: #### 1 [id number], 7245029, 6778615 #### [facility] [address] [place] [address] MCHC (RBC) [Mass/Vol] 32.6 g/dL Normal 31.4-36.0 [facility] Comment on above: Performed By: #### 1 [id number], 4805403, 8880290 #### [facility] [address] [place] [address] MCV (RBC) [Entitic vol] 84.8 fL Normal 80.0-100.0 [facility] Comment on above: Performed By: #### 1 [id number], 7333132, 6922157 #### [facility] [address] [place] [address] Monocytes (Bld) [#/Vol] 0.4 E9/L Normal 0.2-1.0 [facility] Comment on above: Performed By: #### 1 [id number], 4708034, 0894671 #### [facility] [address] [place] [address] Neutrophils (Bld) [#/Vol] 6.3 E9/L Normal 2.0-7.5 [facility] Comment on above: Performed By: #### 1 [id number], 4693837, 1828499 #### [facility] [address] [place] [address] Neutrophils/100 WBC (Bld) 73.1 % Normal 36.0-75.0 [facility] Comment on above: Performed By: #### 1 [id number], 9421667, 0032757 #### [facility] [address] [place] [address] Platelet 238.0 E9/L Normal 150.0-500.0 [facility] Comment on above: Performed By: #### 1 [id number], 4432256, 1437475 #### [facility] [address] [place] [address] Platelet mean volume (Bld) [Entitic vol] 7.8 fL Normal 6.4-10.8 [facility] Comment on above: Performed By: #### 1 [id number], 3530791, 3902026 #### [facility] [address] [place] [address] RBC (Bld) [#/Vol] 4.0 E12/L Low 4.3-5.9 [facility] Comment on above: Performed By: #### 1 [id number], 6958722, 5834683 #### [facility] [address] [place] [address] WBC corrected for nucl RBC Auto (Bld) [#/Vol] 8.6 E9/L Normal 4.0-11.0 [facility] Comment on above: Performed By: #### 1 [id number], 0078086, 5734794 #### [facility] [address] [place] [address] CHEMISTRYOrdered By: SYSTEM SYSTEM on 12-25-2023 Anion gap [Moles/Vol] 13 mmol/L Normal 6 - 16 mEq/L [facility] Calcium [Mass/Vol] 8.8 mg/dL Low 8.9 - 11. 1 mg/dL [facility] Chloride [Moles/Vol] 106 mmol/L Normal 101 - 1 11 mmol/L [facility] CO2 [Moles/Vol] 25 mmol/L Normal 21 - 31 mmol/L [facility] Creatinine [Mass/Vol] 0.8 mg/dL Normal 0.5 - 1.3 mg/dL [facility] eGFR 88 mL/min/1.73 m2 Normal >=59mL/min / 1.73 m2 [facility] Glucose [Mass/Vol] 101 mg/dL Normal 55 - 199 mg/dL [facility] Potassium [Moles/Vol] 3.6 mmol/L Normal 3.5 - 5.3 mmol/L [facility] Sodium [Moles/Vol] 140 mmol/L Normal 135 - 145 mmol/L [facility] Urea nitrogen [Mass/Vol] 16 mg/dL Normal 5 - 21 mg/dL [facility] Urea nitrogen/Creatinine [Mass ratio] 20 mg/mg Normal 10 - 20 [facility] Consent for Treatmenton 11-26 Consent for Treatment [id number] Normal [facility] Discharge Instructionson Discharge Instructions [id number] Normal [facility] ED Clinical Summaryon 2023 ED Clinical Summary (Inserted Image. Tammy ble to display) [address] [address] ED Clinical Summary Person Information Name: JANA CABALLERO[place] Age: 53 Years : 1970 Sex: Female Language: Syrian PCP: Brigitte Carpenter Marital Status: Phone: [phone] Visit Id: Visit Reason: Nausea; Dysuria; Flank pain; LOWER BACK AND SIDE PAIN Speciality: Acuity: 3 Enc Type: Emergency Med Service: Emergency Arrival: 12/25/2023 18:43:10 Discharge: 12/25/2023 22:28:00 LOS: 000 03:45 Checkin: 12/25/2023 18:43:10 Checkout: 12/25/2023 22:28:00 Dispo Type: Home (Routine DC) EVENTS: Event Name Event Status Request Date/Time Start Date/Time Complete Date/Time Arrive Complete 12/25/2023 18:43:10 12/25/2023 18:43:10 12/25/2023 18:43:10 Document Home Meds Request 12/25/2023 18:43:10 Triage Complete 12/25/2023 18:43:10 12/25/2023 19:10:07 12/25/2023 19:10:07 Registration Complete 12/25/2023 19:09:46 12/25/2023 19:09:46 12/25/2023 19:09:46 Reg Complete Request 12/25/2023 19:09:46 Reg Bed Request Complete 12/25/2023 19:09:46 12/25/2023 19:09:46 12/25/2023 19:09:46 Bed Assign Complete 12/25/2023 19:10:36 12/25/2023 19:10:36 12/25/2023 19:10:36 Dr Exam Complete 12/25/2023 19:10:36 12/25/2023 19:11:23 12/25/2023 19:11:23 RN Exam Complete 12/25/2023 19:10:36 12/25/2023 19:23:18 12/25/2023 19:23:18 Registration Complete 12/25/2023 19:11:23 12/25/2023 19:11:35 12/25/2023 19:11:35 Pending Labs Complete 12/25/2023 19:12:49 12/25/2023 19:51:06 Dr Exam Complete 12/25/2023 19:13:05 12/25/2023 19:13:05 12/25/2023 19:13:05 Registration Complete 12/25/2023 19:13:05 12/25/2023 19:26:51 12/25/2023 19:26:51 Meds Admin Complete 12/25/2023 19:53:09 12/25/2023 19:59:45 Pending Labs Complete 12/25/2023 19:53:09 12/25/2023 20:27:05 Lab Complete 12/25/2023 19:53:09 12/25/2023 20:27:05 X-Ray Cancel 12/25/2023 19:53:09 12/25/2023 22:11:20 Pending Labs Complete 12/25/2023 20:10:02 12/25/2023 20:10:02 12/25/2023 20:27:05 Lab Complete 12/25/2023 20:10:02 12/25/2023 20:10:02 12/25/2023 20:27:05 Meds Admin Complete 12/25/2023 22:11:43 12/25/2023 22:28:51 Discharge Complete 12/25/2023 22:13:45 12/25/2023 22:38:27 12/25/2023 22:38:27 Transfer Complete 12/25/2023 22:38:27 12/25/2023 22:38:27 12/25/2023 22:38:27 ADDRESS: [address] [facility] [id number] PHYS DOC NOTES: MEDICAL INFORMATION: Prescriptions Given: New Medications [facility] #[id number], [address] [place], [place] [id number], [phone] oxybutynin (oxybutynin 5 mg ER Tab) 1 Tablets By Mouth every day. Refills: 0. tramadol (traMADOL 50 mg Tab) 1 Tablets By Mouth every 6 hours as needed for pain for 3 Days. Refills: 0. Medications to Continue Taking That Have Changed [facility] #[id number], [address] [place], [place] [id number], [phone] START: ondansetron (Zofran ODT 4 mg Tab-Dis) 1 Tablets By Mouth every 8 hours as needed Nausea/Vomiting. Refills: 0. Other Medications START: ondansetron (Zofran ODT 4 mg Tab-Dis) 1 Tablets By Mouth every 8 hours as needed Nausea/Vomiting. Refills: 0. Medications to Continue with No Changes Other Medications albuterol (albuterol HFA 90 mcg/inh MDI) 2 Puffs Inhalation every 4 hours as needed for wheezing. Refills: 0. cephalexin (Keflex 500 mg Cap) 1 Capsules By Mouth 4 times a day for 5 Days. Refills: 0. ferrous sulfate (ferrous sulfate 325 mg Tab) 1 Tablets By Mouth every day. Refills: 1. meclizine (meclizine 25 mg Tab) 1 Tablets By Mouth 3 times a day as needed for dizziness. Refills: 0. multivitamin with minerals (One A Day Women's Complete oral tablet) 1 Tablets By Mouth every day. Refills: 0. naproxen (Naprosyn 500 mg Tab) 1 Tablets By Mouth 2 times a day as needed for pain. Refills: 0. pantoprazole (Pantoprazole [address] Tab) 1 Tablets By Mouth every day. Refills: 4. tamsulosin (Flomax 0.4 mg Cap) 1 Capsules By Mouth every day. Refills: 0. PATIENT EDUCATION INFORMATION: Instructions: Kidney Stones; Renal Colic Follow up: With: Address: When: Mayco HERNANDEZ [address] [place] [id number] Business (1) In 3 days 12/28/2023 Comments: Call Dr for diagnosis based follow up With: Address: When: Brigitte Garcia [address] [place] [address] [place] [phone] Business (1) In 3 days 12/28/2023 Comments: Follow-up with your primary care provider in 3 to 5 days. If symptoms worsen, do not improve, or new symptoms arise please report back to emergency department for further evaluation. DIAGNOSIS: Right flank pain Normal [facility] ED Patient Education Noteon 12-25-2023 ED Patient Education Note Urology Kidney Stones Kidney stones are solid, rock-like deposits that form inside of the kidneys. The kidneys are a pair of organs that make urine. A kidney stone may form in a kidney and move into other parts of the urinary tract, including the tubes that connect the kidneys to the bladder (ureters), the bladder, and the tube that carries urine out of the body (urethra). As the stone moves through these areas, it can cause intense pain and block the flow of urine. Kidney stones are created when high levels of certain minerals are found in the urine. The stones are usually passed out of the body through urination, but in some cases, medical treatment may be needed to remove them. What are the causes? Kidney stones may be caused by: ? A condition in which certain glands produce too much parathyroid hormone (primary hyperparathyroidism), which causes too much calcium buildup in the blood. ? A buildup of uric acid crystals in the bladder (hyperuricosuria). Uric acid is a chemical that the body produces when you eat certain foods. It usually leaves the body in the urine. ? Narrowing (stricture) of one or both of the ureters. ? A kidney blockage that is present at (congenital obstruction). ? Past surgery on the kidney or the ureters. What increases the risk? The following factors may make you more likely to develop this condition: ? Having had a kidney stone in the past. ? Having a family history of kidney stones. ? Not drinking enough water. ? Eating a diet that is high in protein, salt (sodium), or sugar. ? Being overweight or obese. What are the signs or symptoms? Symptoms of a kidney stone may include: ? Pain in the side of the abdomen, right below the ribs (flank pain). Pain usually spreads (radiates) to the groin. ? Needing to urinate often or urgently. ? Painful urination. ? Blood in the urine (hematuria). ? Nausea. ? Vomiting. ? Fever and chills. How is this diagnosed? This condition may be diagnosed based on: ? Your symptoms and medical history. ? A physical exam. ? Blood tests. ? Urine tests. These may be done before and after the stone passes out of your body through urination. ? Imaging tests, such as a CT scan, abdominal X-ray, or ultrasound. ? A procedure to examine the inside of the bladder (cystoscopy). How is this treated? Treatment for kidney stones depends on the size, location, and makeup of the stones. Kidney stones will often pass out of the body through urination. You may need to: ? Increase your fluid intake to help pass the stone. In some cases, you may be given fluids through an IV and may need to be monitored in the hospital. ? Take medicine for pain. ? Make changes in your diet to help prevent kidney stones from coming back. Sometimes, procedures are needed to remove a kidney stone. This may involve: ? A procedure to break up kidney stones using: ? A focused beam of light (laser therapy). ? Shock waves (extracorporeal shock wave lithotripsy). ? Surgery to remove kidney stones. This may be needed if you have severe pain or have stones that block your urinary tract. Follow these instructions at home: Medicines ? Take vxph-bgi-ccuzgsr and prescription medicines only as told by your health care provider. ? Ask your health care provider if the medicine prescribed to you requires you to avoid driving or using heavy machinery. Eating and drinking ? Drink enough fluid to keep your urine pale yellow. You may be instructed to drink at least 8?10 glasses of water each day. This will help you pass the kidney stone. ? If directed, change your diet. This may include: ? Limiting how much sodium you eat. ? Eating more fruits and vegetables. ? Limiting how much animal protein you eat. Animal proteins include red meat, poultry, fish, and eggs. ? Eating a normal amount of calcium (1,000?1,300 mg per day). ? Follow instructions from your health care provider about eating or drinking restrictions. General instructions ? Collect urine samples as told by your health care provider. You may need to collect a urine sample: ? 24 hours after you pass the stone. ? 8?12 weeks after you pass the kidney stone, and every 6?12 months after that. ? Strain your urine every time you urinate, for as long as directed. Use the strainer that your health care provider recommends. ? Do not throw out the kidney stone after passing it. Keep the stone so it can be tested by your health care provider. Testing the makeup of your kidney stone may help prevent you from getting kidney stones in the future. ? Keep all follow-up visits. You may need follow-up X-rays or ultrasounds to make sure that your stone has passed. How is this prevented? To prevent another kidney stone: ? Drink enough fluid to keep your urine pale yellow. This is the best way to prevent kidney stones. ? Eat a healthy diet. Follow recommendations from (more content not included)... Normal [facility] ED Patient Summaryon 024 ED Patient Summary (Inserted Image. Tammy ble to display) [address] [address] Patient Discharge Instructions Person Information Name: JANA CABALLERO Age: 53 Years Arrival Date: 12/25/2023 18:43:10 Discharge Diagnosis: Right flank pain Primary Care Physician: Jose BUNN, Brigitte Moss Provider Information Primary Provider: Stefano Marino DO Advanced Asset Management Analyst:None The exam and treatment you received in the Emergency Department were for an urgent problem and are not intended as complete care. It is important that you follow up with a doctor, nurse practitioner, or physician?s accounting administrative assistant for ongoing care. If your symptoms become worse or you do not improve as expected and you are unable to reach your usual health care provider, you should return to the Emergency Department. We are available 24 hours a day. JANA CABALLERO has been given the following list of patient education materials, prescriptions and follow-up instructions: Follow-up Instructions: With: Address: When: Mayco HERNANDEZ [address] [place] [address] [facility] (1) In 3 days 12/28/2023 Comments: Call Dr for diagnosis based follow up With: Address: When: Brigitte Garcia [address] [place] [address] [address] [facility] (1) In 3 days 12/28/2023 Comments: Follow-up with your primary care provider in 3 to 5 days. If symptoms worsen, do not improve, or new symptoms arise please report back to emergency department for further evaluation. In the event that this physician does not participate in your insurance network, please consult with your insurance company to find a nearby participating provider. Patient Education Materials: Kidney Stones; Renal Colic A MESSAGE TO ALL PATIENTS REGARDING OPIOIDS PRESCRIPTION OPIOIDS: WHAT YOU NEED TO KNOW Prescription opioids can be used to help relieve jhqotghi-et-umland pain and are often prescribed following a surgery or injury, or for certain health conditions. These medications can be an important part of the treatment but also come with serious risks. It is important to work with your healthcare provider to make sure you are getting the safest, most effective care. WHAT ARE THE RISKS AND SIDE EFFECTS OF OPIOID USE? Prescription opioids carry serious risks of addiction and overdose, especially with prolonged use. An opioid overdose, often marked by slowed breathing, can cause sudden . The use of prescription opioids can have a number of side effects as well, even when taken as directed: ? Tolerance?meaning you might need to take more of the medication for the same pain relief ? Physical dependence?meaning you have symptoms of withdrawal when a medication is stopped ? Increased sensitivity to pain ? Constipation ? Nausea, vomiting, and dry mouth ? Sleepiness and dizziness ? Confusion ? Depression ? Low levels of testosterone that can result in lower sex drive, energy, and strength ? Itching and sweating RISKS ARE GREATER WITH: ? History of drug misuse, substance use disorder, or overdose ? Mental health conditions (such as depression or anxiety) ? Sleep apnea ? Older age (65 years and older) ? Avoid alcohol while taking prescription opioids. Also, unless specifically advised by your health care provider, medications to avoid include: ? Benzodiazepines (such as Xanax or Valium) ? Muscle relaxants (such as Soma or Flexeril) ? Hypnotics (such as Ambien or Lunesta) ? Other prescription opioids KNOW YOUR OPTIONS Talk to your health care provider about ways to manage your pain that don?t involve prescription opioids. Some of these options may actually work better and have fewer risks and side effects. Options may include: ? Pain relievers such as acetaminophen, ibuprofen, and naproxen ? Some medication that are also used for depression or seizures ? Physical therapy and exercise ? Cognitive behavioral therapy, a psychological, goal-directed approach, in which patients learn how to modify physical, behavioral, and emotional triggers of pain and stress. IF YOU ARE PRESCRIBED OPIOIDS FOR PAIN: ? Never take opioids in greater amounts or more often than prescribed. ? Follow up with your primary health care provider. o Work together to create a plan on how to manage your pain. o Talk about ways to help manage your pain that don?t involve prescription opioids. o Talk about any and all concerns and side effects. ? Help prevent misuse and abuse o Never sell or share prescription opioids. o Never use another person?s prescription opioids. ? Store prescription opioids in a secure place and out of reach of others (this may include visitors, children, friends, and family). ? Safely dispose of unused prescription opioids: Find your community drug take-back program or your pharmacy mail-back program, or flush th (more content not included)... Normal [facility] HEMATOLOGYOrdered By: SYSTEM SYSTEM on 12-25-2023 Basophils/100 WBC (Bld) 1.1 % Normal 0.0 - 2.0 % Remisol Heme Basophils/Leukocytes Auto (Bld) [Pure # fraction] 0.1 E9/L Normal 0.0 - 0.2 E9/L Remisol Heme Eosinophils (Bld) [#/Vol] 0.3 E9/L Normal 0.0 - 0.5 E9/L Remisol Heme Eosinophils/100 WBC (Bld) 3.2 % Normal 0.0 - 8.0 % Remisol Heme Erythrocyte distribution width (RBC) [Ratio] 14.8 % High 10.9 - 14.2 % Remisol Heme Hematocrit (Bld) [Volume fraction] 34.1 % Normal 34.0 - 46.0 % Remisol Heme Hemoglobin (Bld) [Mass/Vol] 11.1 g/dL Low 12.0 - 16.0 gm/dL Remisol Heme Lymphocytes (Bld) [#/Vol] 1.6 E9/L Normal 1.0 - 4.0 E9/L Remisol Heme Lymphocytes/100 WBC (Bld) 18.2 % Normal 14.0 - 50.0 % Remisol Heme MCH (RBC) [Entitic mass] 27.7 pg Normal 27.0 - 34.0 pg Remisol Heme MCHC (RBC) [Mass/Vol] 32.6 g/dL Normal 31.4 - 36.0 gm/dL Remisol Heme MCV (RBC) [Entitic vol] 84.8 fL Normal 80.0 - 100.0 fL Remisol Heme Monocytes (Bld) [#/Vol] 0.4 E9/L Normal 0.2 - 1.0 E9/L Remisol Heme Monocytes/100 WBC (Bld) 4.4 % Normal 4.0 - 14.0 % Remisol Heme Neutrophils (Bld) [#/Vol] 6.3 E9/L Normal 2.0 - 7.5 E9/L Remisol Heme Neutrophils/100 WBC (Bld) 73.1 % Normal 36.0 - 75.0 % Remisol Heme Platelet 238.0 E9/L Normal 150.0 - 500.0 E9/L Remisol Heme Platelet mean volume (Bld) [Entitic vol] 7.8 fL Normal 6.4 - 10.8 fL Remisol Heme RBC (Bld) [#/Vol] 4.0 E12/L Low 4.3 - 5.9 E12/L Remisol Heme WBC corrected for nucl RBC Auto (Bld) [#/Vol] 8.6 E9/L Normal 4.0 - 11.0 E9/L Remisol Heme UA with Cult Rflxon 12-25-19 24 Bilirubin Ql (U) Negative Normal Negative [facility] Comment on above: Performed By: #### 4 [id number] ####[facility] [address] [place] [address] Clarity (U) TURBID Abnormal Clear [facility] Comment on above: Performed By: #### 4 [id number] ####[facility] [address] [place] [address] Color (U) RED Abnormal Yellow [facility] Comment on above: Performed By: #### 4 [id number] ####[facility] [address] [place] [address] Glucose Test strip (U) [Mass/Vol] Negative Normal Negative [facility] Comment on above: Performed By: #### 4 [id number] ####[facility] [address] [place] [address] Hemoglobin Ql (U) 3+ Abnormal Negative [facility] Comment on above: Performed By: #### 4 [id number] ####[facility] [address] [place] [address] Ketones (U) [Mass/Vol] Negative Normal Negative [facility] Comment on above: Performed By: #### 4 [id number] ####[facility] [address] [place] [address] Nitrite Ql (U) Negative Normal Negative [facility] Comment on above: Performed By: #### 4 [id number] ####[place] [address] [place] [address] pH (U) 6.0 [pH] Invalid Interpretation Code 5.0-9.0 [facility] Comment on above: Performed By: #### 4 [id number] ####[address] [address] Protein (U) [Mass/Vol] 2+ Abnormal Negative [facility] Comment on above: Performed By: #### 4 [id number] ####[address] [address] Specific gravity (U) [Rel density] 1.020 No Units Invalid Interpretation Code 1.005-1.030 [facility] Comment on above: Performed By: #### 4 [id number] ####[address] [address] UA Bacteria 1+ [id number] Abnormal Trace [facility] Comment on above: Performed By: #### 4 [id number] ####[address] [address] UA RBC >75 Abnormal 0-3 [facility] Comment on above: Performed By: #### 4 [id number] ####[address] [address] UA Squam Epithelial 0-2 Normal 0-2 [facility] Comment on above: Performed By: #### 4 [id number] ####[address] [address] UA WBC 0-5 Normal 0-5 [facility] Comment on above: Performed By: #### 4 [id number] ####[address] [address] Urobilinogen Qn (U) 0.2 Normal 0.0-1.0 [facility] Comment on above: Performed By: #### 4 [id number] ####[address] [address] WBC Auto Ql (U) TRACE Abnormal Negative [facility] Comment on above: Performed By: #### 4 [id number] ####[facility] [address] [place] [address] UA Spec Desc Clean Catch Normal [facility] Comment on above: Performed By: #### 4 [id number] ####[facility] [address] [place] [address] URINALYSISOrdered By: Florina Calhoun on 12-25-2023 Bilirubin Ql (U) Negative (12/25/23 7:24 PM) Normal Negative [facility] UA Auto SS Clarity (U) Turbid *ABN* (12/25/23 7:24 PM) Invalid Interpretation Code Clear [facility] UA Auto SS Color (U) Red *ABN* (12/25/23 7:24 PM) Invalid Interpretation Code Yellow [facility] UA Auto SS Glucose Test strip (U) [Mass/Vol] Negative (12/25/23 7:24 PM) Normal Negative [facility] UA Auto SS Hemoglobin Ql (U) 3+ *ABN* (12/25/23 7:24 PM) Invalid Interpretation Code Negative [facility] UA Auto SS Ketones (U) [Mass/Vol] Negative (12/25/23 7:24 PM) Normal Negative [facility] UA Auto SS Nitrite Ql (U) Negative (12/25/23 7:24 PM) Normal Negative [facility] UA Auto SS pH (U) 6.0 *NA* (12/25/23 7:24 PM) Invalid Interpretation Code 5.0 - 9.0 [facility] UA Auto SS Protein (U) [Mass/Vol] 2+ *ABN* (12/25/23 7:24 PM) Invalid Interpretation Code Negative [facility] UA Auto SS Specific gravity (U) [Rel density] 1.020 Invalid Interpretation Code 1.005 - 1.030 [facility] UA Auto SS UA Bacteria 1+ graded/HPF Invalid Interpretation Code Tracegraded /HPF [facility] UA Auto SS UA RBC >75 graded/HPF Invalid Interpretation Code 0-3graded/H PF [facility] UA Auto SS UA Squam Epithelial 0-2 graded/HPF Normal 0-2gra ded/H PF [facility] UA Auto SS UA WBC 0-5 graded/HPF Normal 0-5graded/H PF [facility] UA Auto SS Urobilinogen Qn (U) 0.2 (12/25/23 7:24 PM) Normal 0.0 - 1.0 [facility] [place]A Auto SS WBC Auto Ql (U) Trace *ABN* (12/25/23 7:24 PM) Invalid Interpretation Code Negative [facility] UA Auto SS URINALYSISOrdered By: Wes phillips on 12-25-2023 UA Spec Desc Clean Catch (12/25/23 7:24 PM) Normal [facility] UA Auto SS Work Phone: eGFRon 12-25-2023 eGFR 88 mL/min/1.73 m2 Normal >=59 [facility] Comment on above: Order Comment: Order added by Discern Expert. Performed By: #### 1 [id number], [id number], [id number] #### [facility] [address] [place] [address] BMPon 12-23-2023 Anion gap [Moles/Vol] 9 mmol/L Normal 6-16 [facility] Comment on above: Performed By: #### 2 [id number], [id number], [id number] ####[facility] [address] [place] [address] Calcium [Mass/Vol] 8.8 mg/dL Low 8.9-11.1 [facility] Comment on above: Performed By: #### 2 957338, [id number], 6255953 ####[facility] [address] [place] [address] Chloride [Moles/Vol] 107 mmol/L Normal 101-111 [facility] Comment on above: Performed By: #### 2 431760, [id number], [id number] ####[facility] [address] [place] [address] CO2 [Moles/Vol] 27 mmol/L Normal 21-31 [facility] Comment on above: Performed By: #### 2 612225, [id number], 6975071 ####[facility] [address] [place] [address] Creatinine [Mass/Vol] 0.6 mg/dL Normal 0.5-1.3 [facility] Comment on above: Performed By: #### 2 492689, [id number], [id number] ####[facility] [address] [place] [address] Glucose [Mass/Vol] 104 mg/dL Normal 55-199 [facility] Comment on above: Performed By: #### 2 014860, [id number], 6225391 ####[facility] [address] [place] [address] Potassium [Moles/Vol] 3.9 mmol/L Normal 3.5-5.3 [facility] Comment on above: Performed By: #### 2 230190, [id number], 5885188 ####[address] [address] Sodium [Moles/Vol] 139 mmol/L Normal 135-145 [facility] Comment on above: Performed By: #### 2 562341, [id number], 0155835 ####[address] [address] Urea nitrogen [Mass/Vol] 14 mg/dL Normal 5-21 [facility] Comment on above: Performed By: #### 2 563467, [id number], 6627965 ####[facility] [address] [place] [address] Urea nitrogen/Creatinine [Mass ratio] 23 No Units High 10-20 [facility] Comment on above: Performed By: #### 2 560505, [id number], 2622345 ####[facility] [address] [place] [address] CBC w/ Auto Diffon 4 Basophils/100 WBC (Bld) 0.7 % Normal 0.0-2.0 [facility] Comment on above: Performed By: #### 2 454605, [id number], 8956613 ####[facility] [address] [place] [address] Basophils/Leukocytes Auto (Bld) [Pure # fraction] 0.0 E9/L Normal 0.0-0.2 [facility] Comment on above: Performed By: #### 2 376668, 62919148, 6204290 ####[address] [address] Eosinophils (Bld) [#/Vol] 0.4 E9/L Normal 0.0-0.5 [facility] Comment on above: Performed By: #### 2 707426, 90223586, 3328191 ####[address] [address] Eosinophils/100 WBC (Bld) 10.4 % High 0.0-8.0 [facility] Comment on above: Performed By: #### 2 771685, 34018636, 9208911 ####[address] [address] Erythrocyte distribution width (RBC) [Ratio] 14.7 % High 10.9-14.2 [facility] Comment on above: Performed By: #### 2 725079, 75452600, 3997631 ####[address] [address] Hematocrit (Bld) [Volume fraction] 33.1 % Low 34.0-46.0 [facility] Comment on above: Performed By: #### 2 784105, 32878673, 9571775 ####[address] [address] Hemoglobin (Bld) [Mass/Vol] 10.8 g/dL Low 12.0-16.0 [facility] Comment on above: Performed By: #### 2 947597, 12959995, 0228108 ####[address] [address] Lymphocytes (Bld) [#/Vol] 1.2 E9/L Normal 1.0-4.0 [facility] Comment on above: Performed By: #### 2 320841, 88757102, 3532187 ####[address] [address] Lymphocytes/100 WBC (Bld) 28.0 % Normal 14.0-50.0 [facility] Comment on above: Performed By: #### 2 390540, 05376168, 3255457 ####[address] [address] MCH (RBC) [Entitic mass] 27.5 pg Normal 27.0-34.0 [facility] Comment on above: Performed By: #### 2 998685, 37187110, 3188182 ####[address] [address] MCHC (RBC) [Mass/Vol] 32.7 g/dL Normal 31.4-36.0 [facility] Comment on above: Performed By: #### 2 268136, 09245858, 9337751 ####[address] [address] MCV (RBC) [Entitic vol] 84.2 fL Normal 80.0-100.0 [facility] Comment on above: Performed By: #### 2 550552, 44995767, 6136930 ####[address] [address] Monocytes (Bld) [#/Vol] 0.4 E9/L Normal 0.2-1.0 [facility] Comment on above: Performed By: #### 2 842761, 03703867, 1556599 ####[address] [address] Neutrophils (Bld) [#/Vol] 2.3 E9/L Normal 2.0-7.5 [facility] Comment on above: Performed By: #### 2 623861, 47900007, 4603893 ####[address] [address] Neutrophils/100 WBC (Bld) 52.4 % Normal 36.0-75.0 [facility] Comment on above: Performed By: #### 2 840711, 70333759, 5407849 ####[facility] [address] [place] [address] Platelet mean volume (Bld) [Entitic vol] 7.8 fL Normal 6.4-10.8 [facility] Comment on above: Performed By: #### 2 504269, 82989275, 2002762 ####[facility] [address] [place] [address] Platelets (Bld) [#/Vol] 244.0 E9/L Normal 150.0-500.0 [facility] Comment on above: Performed By: #### 2 863184, 86700765, 7005187 ####[address] [address] RBC (Bld) [#/Vol] 3.9 E12/L Low 4.3-5.9 [facility] Comment on above: Performed By: #### 2 981471, 50370962, 7506377 ####[address] [address] WBC corrected for nucl RBC Auto (Bld) [#/Vol] 4.3 E9/L Normal 4.0-11.0 [facility] Comment on above: Performed By: #### 2 827655, 60581120, 6375783 ####[facility] [address] [place] [address] CHEMISTRYOrdered By: SYSTEM SYSTEM on 12-23-2023 Anion gap [Moles/Vol] 9 mmol/L Normal 6 - 16 mEq/L Remisol Chem Calcium [Mass/Vol] 8.8 mg/dL Low 8.9 - 11. 1 mg/dL Remisol Chem Chloride [Moles/Vol] 107 mmol/L Normal 101 - 1 11 mmol/L Remisol Chem CO2 [Moles/Vol] 27 mmol/L Normal 21 - 31 mmol/L Remisol Chem Creatinine [Mass/Vol] 0.6 mg/dL Normal 0.5 - 1.3 mg/dL Remisol Chem eGFR 107 mL/min/1.73 m2 Normal >=59mL/mi n/ 1.73 m2 Remisol Chem Glucose [Mass/Vol] 104 mg/dL Normal 55 - 199 mg/dL Remisol Chem Potassium [Moles/Vol] 3.9 mmol/L Normal 3.5 - 5.3 mmol/L Remisol Chem Sodium [Moles/Vol] 139 mmol/L Normal 135 - 145 mmol/L Remisol Chem Urea nitrogen [Mass/Vol] 14 mg/dL Normal 5 - 21 mg/dL Remisol Chem Urea nitrogen/Creatinine [Mass ratio] 23 mg/mg High 10 - 20 Remisol Chem Consent for Treatmenton 11-25 Consent for Treatment [id number] Normal [facility] Discharge Instructionson Discharge Instructions [id number] Normal [facility] ED Clinical Summaryon 2023 ED Clinical Summary (Inserted Image. Tammy ble to display) [place] [id number] ED Clinical Summary Person Information Name: JANA CABALLERO [facility] Age: 53 Years : 1970 Sex: Female Language: Syrian PCP: Brigitte Carpenter Marital Status: Phone: [phone] Visit Id: Visit Reason: Medical problem - minor; Hematuria; Flank pain; POSS KIDNEY STONE Speciality: Acuity: 3 Enc Type: Emergency Med Service: Emergency Arrival: 12/23/2023 11:14:10 Discharge: 12/23/2023 13:29:02 LOS: 000 02:15 Checkin: 12/23/2023 11:14:10 Checkout: 12/23/2023 13:29:02 Dispo Type: Home (Routine DC) EVENTS: Event Name Event Status Request Date/Time Start Date/Time Complete Date/Time Arrive Complete 12/23/2023 11:14:10 12/23/2023 11:14:10 12/23/2023 11:14:10 Document Home Meds Request 12/23/2023 11:14:10 Triage Complete 12/23/2023 11:14:10 12/23/2023 11:37:42 12/23/2023 11:37:42 Registration Complete 12/23/2023 11:18:34 12/23/2023 11:18:34 12/23/2023 11:18:34 Reg Complete Request 12/23/2023 11:18:34 Reg Bed Request Complete 12/23/2023 11:18:34 12/23/2023 11:18:34 12/23/2023 11:18:34 Bed Assign Complete 12/23/2023 11:33:00 12/23/2023 11:33:00 12/23/2023 11:33:00 Dr Exam Complete 12/23/2023 11:33:00 12/23/2023 11:58:50 12/23/2023 11:58:50 RN Exam Complete 12/23/2023 11:33:00 12/23/2023 13:13:24 12/23/2023 13:13:24 Pending Labs Complete 12/23/2023 11:50:23 12/23/2023 12:13:56 12/23/2023 12:50:33 Lab Complete 12/23/2023 11:50:23 12/23/2023 12:50:33 X-Ray Complete 12/23/2023 11:50:23 12/23/2023 12:34:17 12/23/2023 12:44:55 Registration Request 12/23/2023 11:58:50 US Complete 12/23/2023 12:07:46 12/23/2023 12:09:02 12/23/2023 12:32:57 Pending Labs Complete 12/23/2023 12:17:48 12/23/2023 12:17:48 12/23/2023 12:50:33 Lab Complete 12/23/2023 12:17:48 12/23/2023 12:17:48 12/23/2023 12:50:33 Pending Labs Complete 12/23/2023 12:18:54 12/23/2023 12:18:54 12/23/2023 12:18:54 Patient Care Complete 12/23/2023 12:44:05 12/23/2023 13:28:30 Wet Read Request 12/23/2023 12:44:55 Discharge Complete 12/23/2023 13:23:19 12/23/2023 13:29:07 12/23/2023 13:29:07 Transfer Complete 12/23/2023 13:29:07 12/23/2023 13:29:07 12/23/2023 13:29:07 ADDRESS: [address] [facility] [phone] PHYS DOC NOTES: MEDICAL INFORMATION: Prescriptions Given: New Medications [id number], [address] [place], [place] [id number], [phone] cephalexin (Keflex 500 mg Cap) 1 Capsules By Mouth 4 times a day for 5 Days. Refills: 0. tamsulosin (Flomax 0.4 mg Cap) 1 Capsules By Mouth every day. Refills: 0. Medications to Continue with No Changes Other Medications albuterol (albuterol HFA 90 mcg/inh MDI) 2 Puffs Inhalation every 4 hours as needed for wheezing. Refills: 0. ferrous sulfate (ferrous sulfate 325 mg Tab) 1 Tablets By Mouth every day. Refills: 1. meclizine (meclizine 25 mg Tab) 1 Tablets By Mouth 3 times a day as needed for dizziness. Refills: 0. multivitamin with minerals (One A Day Women's Complete oral tablet) 1 Tablets By Mouth every day. Refills: 0. naproxen (Naprosyn 500 mg Tab) 1 Tablets By Mouth 2 times a day as needed for pain. Refills: 0. ondansetron (Zofran ODT 4 mg Tab-Dis) 1 Tablets By Mouth every 8 hours as needed Nausea/Vomiting. Refills: 0. pantoprazole (Pantoprazole [address] Tab) 1 Tablets By Mouth every day. Refills: 4. PATIENT EDUCATION INFORMATION: Instructions: Kidney Stones; Hematuria, Adult Follow up: With: Address: When: Brigitte Polo, [address], [facility] [address] [place] [address] Business (1) Within 3 to 5 days DIAGNOSIS: Hematuria; Right flank pain Normal [facility] ED Note-Physicianon 12-23-19 ED Note-Physician Basic Information Time Seen: Iban Haji MD 12/23/2023 11:58 Chief Complaint Here 1 week ago and told had kidney that passed. Still having R flank pain and now having hematuria. Is on keflex. History of Present Illness 53-year-old female presents with a complaint of persistent mild right flank discomfort. Patient states the discomfort returned about 3 days ago. Patient states that the pain is not nearly as severe is December 11 when she was treated for a kidney stone. Patient states over the past couple days she is also noticed a return of her hematuria. She denies any chills or fever with this but there is been very slight nausea. She denies any pain or burning with urination. Patient states she had has a history of numerous small stones and is concerned she may be passing such stones. Patient states that the pain has been controlled with ibuprofen. Review of Systems A 10 point review of systems is negative except as noted above. Medical and Surgical History: Reviewed and noted Social history: Lives at home Tobacco: Denies Physical Exam Vitals & Measurements T: 36.8 ?C(Oral) HR: 70(Peripheral) RR: 16 BP: 149/87 SpO2: 98% HT: 170 cm WT: 92 kg BMI: 31.83 This is a moderately overweight 53-year-old female she is alert and oriented skin is warm and dry color is pink on room air. The heart is regular not accelerated without murmur gallop or rub. Breath sounds are equal left and right. She demonstrates normal respiratory motion. The abdomen is obese soft there is some tenderness in the epigastrium only. There is no guarding rebound or masses. Very mild tenderness just above the right posterior iliac crest. Medical Decision Making The urine culture from December 11 grew E. coli which is sensitive to the Keflex. Renal ultrasound did not show evidence of obstruction. They did note a 7 mm nonobstructing stone. Kidney function appears to be within normal limits. White blood count is normal. We will renew Keflex for the next 5 days. Flomax will be provided to help her pass the small stones that she has passed previously. Assessment/Plan Hematuria (R31.9: Hematuria, unspecified) Right flank pain (R10.9: Unspecified abdominal pain) Orders: cephalexin, 500 mg = 1 cap(s), Oral, QID, X 5 day(s), # 20 cap(s), Refills(s) 0, [facility]: [id number], 170, cm, 12/23/23 11:37:00 EDT, Height/Length Dosing, 92, kg, 12/23/23 11:37:00 EDT, Weight Dosing tamsulosin, 0.4 mg = 1 cap(s), Oral, Daily, # 10 cap(s), Refills(s) 0, Pharmacy: [facility] #[id number], 170, cm, 12/23/23 11:37:00 EDT, Height/Length Dosing, 92, kg, 12/23/23 11:37:00 EDT, Weight Dosing Urine Strainer to go US Renal Disposition Plan Patient Discharge Condition Stable Discharge Disposition Home Discharge Prescription List Prescriptions Flomax 0.4 mg Cap, 0.4 mg= 1 cap(s), Oral, Daily Keflex 500 mg Cap, 500 mg= 1 cap(s), Oral, QID Follow-up With When Contact Information Brigitte Garcia Within 3 to 5 days [address] [facility], [facility] [employer] [address] [address] Business (1) Additional Instructions: Patient Education Kidney Stones Hematuria, Adult Problem List/Past Medical History Ongoing Abdominal fullness Abdominal pain Allergic rhinitis Anemia Bronchitis Class 1 obesity with body mass index (BMI) of 32.0 to 32.9 in adult Discoloration of skin of toe Dizziness Encounter for screening mammogram for breast cancer ESBL E. coli carrier Establishing care with new doctor, encounter for Exposure to COVID-19 virus Fatigue Flank pain Former smoker Frequency of urination Gastroesophageal reflux disease Hiatal hernia History of cervical cancer History of kidney stones Hydronephrosis with urinary obstruction due to ureteral calculus kidney stones Malignant tumor of cervix Mild recurrent major depression Nausea in adult Nicotine dependence, cigarettes, in remission Nocturia Onychia, toe Onychomycosis Other urethral stricture, female Paresthesia Recurrent headache Screening for colon cancer Screening for diabetes mellitus Screening for lipid disorders Smoker Vertigo Wellness examination Historical Anemia due to unknown mechanism Cervical cancer Chemotherapy Hernia migraines Radiation Procedure/Surgical History Cystoscopy (03/07/2020), :LEEP, exam under anesthesia (10/06/2016), hernia repair (11/25/2015), incisional hernia repair (05/13/2015), (2003), Tubal ligation (2003), Cancer cervix screening - up-to-date, lymph nodes removed from abdomen, T&A, urethra dialation. Medications Inpatient No active inpatient medications Home albuterol HFA 90 mcg/inh MDI, 2 puff(s), Inhalation, q4hr, PRN ferrous sulfate 325 mg Tab, 325 mg= 1 tab(s), Oral, Daily, 1 refills Flomax 0.4 mg Cap, 0.4 mg= 1 cap(s), Oral, Daily Keflex 500 mg Cap, 500 mg= 1 cap(s), Oral, QID meclizine 25 mg Tab, 25 mg= 1 tab(s), Oral, TID, PRN Naprosyn 500 mg Tab, 500 mg= 1 tab(s), Oral, BID, PRN One A Day Women (more content not included)... Normal [facility] Comment on above: Result Comment: Elec tronically Signed By: Adithya PULIDO, Iban\.br\Date and Time Signed: 12/23/23 13:24 EDT ED Patient Education Noteon 12-23-2023 ED Patient Education Note Urology Kidney Stones Kidney stones are solid, rock-like deposits that form inside of the kidneys. The kidneys are a pair of organs that make urine. A kidney stone may form in a kidney and move into other parts of the urinary tract, including the tubes that connect the kidneys to the bladder (ureters), the bladder, and the tube that carries urine out of the body (urethra). As the stone moves through these areas, it can cause intense pain and block the flow of urine. Kidney stones are created when high levels of certain minerals are found in the urine. The stones are usually passed out of the body through urination, but in some cases, medical treatment may be needed to remove them. What are the causes? Kidney stones may be caused by: ? A condition in which certain glands produce too much parathyroid hormone (primary hyperparathyroidism), which causes too much calcium buildup in the blood. ? A buildup of uric acid crystals in the bladder (hyperuricosuria). Uric acid is a chemical that the body produces when you eat certain foods. It usually leaves the body in the urine. ? Narrowing (stricture) of one or both of the ureters. ? A kidney blockage that is present at (congenital obstruction). ? Past surgery on the kidney or the ureters. What increases the risk? The following factors may make you more likely to develop this condition: ? Having had a kidney stone in the past. ? Having a family history of kidney stones. ? Not drinking enough water. ? Eating a diet that is high in protein, salt (sodium), or sugar. ? Being overweight or obese. What are the signs or symptoms? Symptoms of a kidney stone may include: ? Pain in the side of the abdomen, right below the ribs (flank pain). Pain usually spreads (radiates) to the groin. ? Needing to urinate often or urgently. ? Painful urination. ? Blood in the urine (hematuria). ? Nausea. ? Vomiting. ? Fever and chills. How is this diagnosed? This condition may be diagnosed based on: ? Your symptoms and medical history. ? A physical exam. ? Blood tests. ? Urine tests. These may be done before and after the stone passes out of your body through urination. ? Imaging tests, such as a CT scan, abdominal X-ray, or ultrasound. ? A procedure to examine the inside of the bladder (cystoscopy). How is this treated? Treatment for kidney stones depends on the size, location, and makeup of the stones. Kidney stones will often pass out of the body through urination. You may need to: ? Increase your fluid intake to help pass the stone. In some cases, you may be given fluids through an IV and may need to be monitored in the hospital. ? Take medicine for pain. ? Make changes in your diet to help prevent kidney stones from coming back. Sometimes, procedures are needed to remove a kidney stone. This may involve: ? A procedure to break up kidney stones using: ? A focused beam of light (laser therapy). ? Shock waves (extracorporeal shock wave lithotripsy). ? Surgery to remove kidney stones. This may be needed if you have severe pain or have stones that block your urinary tract. Follow these instructions at home: Medicines ? Take xogh-rjq-vjxhgfp and prescription medicines only as told by your health care provider. ? Ask your health care provider if the medicine prescribed to you requires you to avoid driving or using heavy machinery. Eating and drinking ? Drink enough fluid to keep your urine pale yellow. You may be instructed to drink at least 8?10 glasses of water each day. This will help you pass the kidney stone. ? If directed, change your diet. This may include: ? Limiting how much sodium you eat. ? Eating more fruits and vegetables. ? Limiting how much animal protein you eat. Animal proteins include red meat, poultry, fish, and eggs. ? Eating a normal amount of calcium (1,000?1,300 mg per day). ? Follow instructions from your health care provider about eating or drinking restrictions. General instructions ? Collect urine samples as told by your health care provider. You may need to collect a urine sample: ? 24 hours after you pass the stone. ? 8?12 weeks after you pass the kidney stone, and every 6?12 months after that. ? Strain your urine every time you urinate, for as long as directed. Use the strainer that your health care provider recommends. ? Do not throw out the kidney stone after passing it. Keep the stone so it can be tested by your health care provider. Testing the makeup of your kidney stone may help prevent you from getting kidney stones in the future. ? Keep all follow-up visits. You may need follow-up X-rays or ultrasounds to make sure that your stone has passed. How is this prevented? To prevent another kidney stone: ? Drink enough fluid to keep your urine pale yellow. This is the best way to prevent kidney stones. ? Eat a healthy diet. Follow recommendations from (more content not included)... Normal [facility] ED Patient Summaryon 024 ED Patient Summary (Inserted Image. Tammy ble to display) [place] [id number] Patient Discharge Instructions Person Information Name: JANA CABALLERO Age: 53 Years Arrival Date: 12/23/2023 11:14:10 Discharge Diagnosis: Hematuria; Right flank pain Primary Care Physician: Brigitte Carpenter Provider Information Primary Provider: Iban Haji MD Advanced Asset Management Analyst:None The exam and treatment you received in the Emergency Department were for an urgent problem and are not intended as complete care. It is important that you follow up with a doctor, nurse practitioner, or physician?s accounting administrative assistant for ongoing care. If your symptoms become worse or you do not improve as expected and you are unable to reach your usual health care provider, you should return to the Emergency Department. We are available 24 hours a day. JANA CABALLERO has been given the following list of patient education materials, prescriptions and follow-up instructions: Follow-up Instructions: With: Address: When: Brigitte Jose [address], [address], [address] [address] Business (1) Within 3 to 5 days In the event that this physician does not participate in your insurance network, please consult with your insurance company to find a nearby participating provider. Patient Education Materials: Kidney Stones; Hematuria, Adult A MESSAGE TO ALL PATIENTS REGARDING OPIOIDS PRESCRIPTION OPIOIDS: WHAT YOU NEED TO KNOW Prescription opioids can be used to help relieve tatvreqa-wd-gfslbu pain and are often prescribed following a surgery or injury, or for certain health conditions. These medications can be an important part of the treatment but also come with serious risks. It is important to work with your healthcare provider to make sure you are getting the safest, most effective care. WHAT ARE THE RISKS AND SIDE EFFECTS OF OPIOID USE? Prescription opioids carry serious risks of addiction and overdose, especially with prolonged use. An opioid overdose, often marked by slowed breathing, can cause sudden . The use of prescription opioids can have a number of side effects as well, even when taken as directed: ? Tolerance?meaning you might need to take more of the medication for the same pain relief ? Physical dependence?meaning you have symptoms of withdrawal when a medication is stopped ? Increased sensitivity to pain ? Constipation ? Nausea, vomiting, and dry mouth ? Sleepiness and dizziness ? Confusion ? Depression ? Low levels of testosterone that can result in lower sex drive, energy, and strength ? Itching and sweating RISKS ARE GREATER WITH: ? History of drug misuse, substance use disorder, or overdose ? Mental health conditions (such as depression or anxiety) ? Sleep apnea ? Older age (65 years and older) ? Avoid alcohol while taking prescription opioids. Also, unless specifically advised by your health care provider, medications to avoid include: ? Benzodiazepines (such as Xanax or Valium) ? Muscle relaxants (such as Soma or Flexeril) ? Hypnotics (such as Ambien or Lunesta) ? Other prescription opioids KNOW YOUR OPTIONS Talk to your health care provider about ways to manage your pain that don?t involve prescription opioids. Some of these options may actually work better and have fewer risks and side effects. Options may include: ? Pain relievers such as acetaminophen, ibuprofen, and naproxen ? Some medication that are also used for depression or seizures ? Physical therapy and exercise ? Cognitive behavioral therapy, a psychological, goal-directed approach, in which patients learn how to modify physical, behavioral, and emotional triggers of pain and stress. IF YOU ARE PRESCRIBED OPIOIDS FOR PAIN: ? Never take opioids in greater amounts or more often than prescribed. ? Follow up with your primary health care provider. o Work together to create a plan on how to manage your pain. o Talk about ways to help manage your pain that don?t involve prescription opioids. o Talk about any and all concerns and side effects. ? Help prevent misuse and abuse o Never sell or share prescription opioids. o Never use another person?s prescription opioids. ? Store prescription opioids in a secure place and out of reach of others (this may include visitors, children, friends, and family). ? Safely dispose of unused prescription opioids: Find your community drug take-back program or your pharmacy mail-back program, or flush them down the toilet, following guidance from the Food and Drug Administration (www.fda.gov/Drugs/Resource sForYou). ? Visit www.cdc.gov/drugoverdose to learn about the risks of opioids abuse and overdose. ? If you believe you may be struggling with addiction, tell your health neonatal critical care nurse and ask for guidance or call SAMHSA?S National Helpline at 8-302-652-BPJQ. (more content not included)... Normal [facility] HEMATOLOGYOrdered By: SYSTEM SYSTEM on 12-23-2023 Basophils/100 WBC (Bld) 0.7 % Normal 0.0 - 2.0 % Remisol Heme Basophils/Leukocytes Auto (Bld) [Pure # fraction] 0.0 E9/L Normal 0.0 - 0.2 E9/L Remisol Heme Eosinophils (Bld) [#/Vol] 0.4 E9/L Normal 0.0 - 0.5 E9/L Remisol Heme Eosinophils/100 WBC (Bld) 10.4 % High 0.0 - 8.0 % Remisol Heme Erythrocyte distribution width (RBC) [Ratio] 14.7 % High 10.9 - 14.2 % Remisol Heme Hematocrit (Bld) [Volume fraction] 33.1 % Low 34.0 - 46.0 % Remisol Heme Hemoglobin (Bld) [Mass/Vol] 10.8 g/dL Low 12.0 - 16.0 gm/dL Remisol Heme Lymphocytes (Bld) [#/Vol] 1.2 E9/L Normal 1.0 - 4.0 E9/L Remisol Heme Lymphocytes/100 WBC (Bld) 28.0 % Normal 14.0 - 50.0 % Remisol Heme MCH (RBC) [Entitic mass] 27.5 pg Normal 27.0 - 34.0 pg Remisol Heme MCHC (RBC) [Mass/Vol] 32.7 g/dL Normal 31.4 - 36.0 gm/dL Remisol Heme MCV (RBC) [Entitic vol] 84.2 fL Normal 80.0 - 100.0 fL Remisol Heme Monocytes (Bld) [#/Vol] 0.4 E9/L Normal 0.2 - 1.0 E9/L Remisol Heme Monocytes/100 WBC (Bld) 8.5 % Normal 4.0 - 14.0 % Remisol Heme Neutrophils (Bld) [#/Vol] 2.3 E9/L Normal 2.0 - 7.5 E9/L Remisol Heme Neutrophils/100 WBC (Bld) 52.4 % Normal 36.0 - 75.0 % Remisol Heme Platelet mean volume (Bld) [Entitic vol] 7.8 fL Normal 6.4 - 10.8 fL Remisol Heme Platelets (Bld) [#/Vol] 244.0 E9/L Normal 150.0 - 500.0 E9/L Remisol Heme RBC (Bld) [#/Vol] 3.9 E12/L Low 4.3 - 5.9 E12/L Remisol Heme WBC corrected for nucl RBC Auto (Bld) [#/Vol] 4.3 E9/L Normal 4.0 - 11.0 E9/L Remisol Heme UA with Cult Rflxon 12-23-19 Color (U) Light-Yellow Normal Yellow [facility] Comment on above: Result Comment: Micr oscopic readings are only performed on those samples that meet specific criteria set forth by [facility]. Performed By: #### 1 [id number] #### [facility] [address] [place] [address] Glucose (U) [Mass/Vol] Negative Normal Negative [facility] Comment on above: Performed By: #### 1 [id number] #### [facility] [address] [place] [address] Ketones Ql (U) Negative Normal Negative [facility] Comment on above: Performed By: #### 1 [id number] #### [facility] [address] [place] [address] UA Blood 3+ mg/dL Abnormal Negative [facility] Comment on above: Performed By: #### 1 [id number] #### [facility] [address] [place] [address] UA Bacteria 1+ CD:[id number] Abnormal Trace [facility] Comment on above: Performed By: #### 1 [id number] #### [facility] [address] [place] [address] UA Clarity Clear Normal Clear [facility] Comment on above: Performed By: #### 1 [id number] #### [facility] [address] [place] [address] UA Leuk Est Negative Normal Negative [facility] Comment on above: Performed By: #### 1 [id number] #### [facility] [address] [place] [address] UA Mucous Trace Normal Negative [facility] Comment on above: Performed By: #### 1 [id number] #### [facility] [address] [place] [address] UA Nitrite Negative Normal Negative [facility] Comment on above: Performed By: #### 1 [id number] #### [facility] [address] [place] [address] UA pH 5.5 Invalid Interpretation Code 5.0-9.0 [facility] Comment on above: Performed By: #### 1 [id number] #### [facility] [address] [place] [address] UA Protein Negative Normal Negative [facility] Comment on above: Performed By: #### 1 [id number] #### [facility] [address] [place] [address] UA RBC 31-75 Abnormal 0-3 [facility] Comment on above: Performed By: #### 1 [id number] #### [facility] [address] [place] [address] UA Spec Grav 1.010 Invalid Interpretation Code 1.005-1.030 [facility] Comment on above: Performed By: #### 1 [id number] #### [facility] [address] [place] [address] UA Squam Epithelial 0-2 Normal 0-2 Fish r [facility] Comment on above: Performed By: #### 1 [id number] #### [facility] [address] [place] [address] UA Urobilinogen Negative Normal Negative [facility] Comment on above: Performed By: #### 1 [id number] #### [facility] [address] [place] [address] UA WBC 0-5 Normal 0-5 [facility] Comment on above: Performed By: #### 1 [id number] #### [facility] [address] [place] [address] Urobilinogen (U) [Mass/Vol] Negative Normal Negative [facility] Comment on above: Performed By: #### 1 [id number] #### [facility] [address] [place] [address] UA Spec Desc Clean Catch Normal [facility] Comment on above: Performed By: #### 1 [id number] #### [facility] [address] [place] [address] URINALYSISOrdered By: SYSTEM SYSTEM on 12-23-2023 Color (U) Light-Yellow 1 (12/23/23 11:58 AM) Normal Yellow [facility] UA Auto SS Comment on above: Interpretive Data: M icroscopic readings are only performed on those samples that meet specific criteria set forth by [facility]. Glucose (U) [Mass/Vol] Negative Normal Negativemg/ dL [facility] UA Auto SS Ketones Ql (U) Negative Normal Negativemg/ dL [facility] UA Auto SS UA Bacteria 1+ graded/HPF Invalid Interpretation Code Tracegraded /HPF [facility] UA Auto SS UA Blood 3+ mg/dL Invalid Interpretation Code Negativemg/ dL [facility] UA Auto SS UA Clarity Clear (12/23/23 11:58 AM) Normal Clear [facility] UA Auto SS UA Leuk Est Negative Normal NegativeLeu /uL [facility] UA Auto SS UA Mucous Trace graded/LPF Normal Negativegra ded/LPF [facility] UA Auto SS UA Nitrite Negative Normal Negativemg/ dL [facility] UA Auto SS UA pH 5.5 *NA* (12/23/23 11:58 AM) Invalid Interpretation Code 5.0 - 9.0 [facility] UA Auto SS UA Protein Negative Normal Negativemg/ dL [facility] UA Auto SS UA RBC 31-75 graded/HPF Invalid Interpretation Code 0-3graded/H PF [facility] UA Auto SS UA Spec Grav 1.010 *NA* (12/23/23 11:58 AM) Invalid Interpretation Code 1.005 - 1.030 [facility] UA Auto SS UA Squam Epithelial 0-2 graded/HPF Normal 0-2gra ded/H PF [facility] UA Auto SS UA Urobilinogen Negative Normal Negativemg/ dL [facility] UA Auto SS UA WBC 0-5 graded/HPF Normal 0-5graded/H PF [facility] UA Auto SS Urobilinogen (U) [Mass/Vol] Negative Normal Negativemg/ dL [facility] UA Auto SS URINALYSISOrdered By: Bhupendra Dale on 12-23-2023 UA Spec Desc Clean Catch (12/23/23 11:58 AM) Normal [facility] UA Auto SS Work Phone: Renalon 12-23-2023 US Renal Exam Date/Time: 12/23/2023 12:32 EDT Reason for Exam: Hematuria Report IMPRESSION: RESOLVED RIGHT HYDRONEPHROSIS FROM 12/12/2023. NO OTHER SIGNIFICANT CHANGES IDENTIFIED, WITHIN THE LIMITS OF THE STUDY. EXAM: US Renal DATE: 12/23/2023 12:09 PM CLINICAL HISTORY: Hematuria. COMPARISON: CT abdomen and pelvis 12/12/2023. TECHNIQUE: Transabdominal ultrasound of the kidneys was performed. FINDINGS: The study is mild to moderately limited by the patient's body habitus. There is no residual right hydronephrosis or other significant changes from 12/12/2023 identified. A small chronic right subcapsular collection and small nonobstructing calculi predominantly within the right upper pole are noted. Right Kidney Length: 9.3 cm Cortex: 1.6 cm Left Kidney Length: 11.1 cm Cortex: 1.4 cm Ordering Provider: Iban Haji FINAL REPORT Dictated: 12/23/2023 12:43 pm Jean Claude Traylor MD Signed (Electronic Signature): 12/23/2023 12:43 pm Signed by: Jean Claude Traylor MD Transcribed by: JG Technologist: DARRELL Bertrand [facility] XR Abdomen 1 Viewon 12-23-19 XR Abdomen 1 View Exam Date/Time: 12/23/2023 12:44 EDT Reason for Exam: Kidney stone Report IMPRESSION: THERE ARE NO ACUTE CHANGES. THERE ARE CALCIFICATIONS IN THE RIGHT UPPER QUADRANT CORRESPONDING TO THE RENAL STONE SEEN ON THE PRIOR CT SCAN. CLINICAL HISTORY: Kidney stone COMPARISON: CT abdomen pelvis from 12/12/2023 KUB FINDINGS: There are no distended loops of bowel. There is no evidence of obstruction. There are clusters of calcifications in the right upper quadrant which correspond to a renal stone seen on prior CT scan.. There are no acute osseous changes. Ordering Provider: Bhupendra Dale FINAL REPORT Dictated: 12/23/2023 1:35 pm Néstor Mejias MD, V. Signed (Electronic Signature): 12/23/2023 1:35 pm Signed by: Néstor Mejias MD, V. Transcribed by: JG Technologist: VALE, Technical Comments Radiation Dose: Ka,r in mGy = na DAP = na Normal [facility] eGFRon 12-23-2023 eGFR 107 mL/min/1.73 m2 Normal >=59 [facility] Comment on above: Order Comment: Order added by Discern Expert. Performed By: #### 2 [id number] ####[facility] [id number] [place] [address] C Urineon 12-14-2023 Bacteria identified Cx Nom (U) Microbiology PROCEDURE: Urine Culture [R1] SOURCE: U CleanCatch BODY SITE: COLLECTED DATE/TIME: 12/12/2023 14:06 EDT RECEIVED DATE/TIME: 12/12/2023 15:32 EDT START DATE/TIME: 12/12/2023 15:32 EDT FREE TEXT SOURCE: Gustavo BRIONES, Wes Chen PA-C, Wes Jones. FINAL REPORTS Final Report [] Verified Date/Time: 12/14/2023 10:11 EDT >100,000 cfu/ml Escherichia coli SUSCEPTIBILITY RESULTS LEGEND: S=Susceptible, N/R=Not Reported, Blank=Data not available, or drug not advisable or tested, I=Intermediate, ESBL=Extended spectrum beta-lactamase, R=Resistant, TFG=Thymidine-dependent strain, LAZ=Beta-lactamase positive, MOSES=mcg/m;(mg/L), S*=Predicted susceptible interp, R*=Predicted resistant interp EC Antibiotic MOSES Dilutn MOSES Interp Amikacin <=16 S Ampicillin <=8 S Ampicillin/ <=8/4 S Sulbactam Aztreonam <=4 S Cefazolin <=2 S Cefepime <=2 S Cefoxitin <=8 S Ceftazidime <=1 S Ceftazidime/ <=8 S Avibactam Ceftriaxone <=1 S Ciprofloxacin <=1 S Ertapenem <=0.5 S Gentamicin <=4 S Levofloxacin <=2 S Meropenem <=1 S Nitrofurantoin <=32 S Piperacillin/ <=16 S Tazobactam Tetracycline <=4 S Tigecycline <=2 S Tobramycin <=4 S Trimethoprim/ <=2/38 S Sulfa Performing Locations R1: This test was performed at: [facility], [address] [place] [address], [phone]- , , Normal [facility] Comment on above: Performed By: #### 1 [id number] #### [facility] [address] [place] [address] BMPon 12-12-2023 Anion gap [Moles/Vol] 10 mmol/L Normal 6-16 [facility] Comment on above: Performed By: #### 2 [id number] #### [facility] [address] [place] [address] Calcium [Mass/Vol] 8.7 mg/dL Low 8.9-11.1 [facility] Comment on above: Performed By: #### 2 [id number] #### [facility] [address] [place] [address] Chloride [Moles/Vol] 108 mmol/L Normal 101-111 [facility] Comment on above: Performed By: #### 2 [id number], [id number], [id number] #### [facility] [address] [place] [address] CO2 [Moles/Vol] 26 mmol/L Normal 21-31 [facility] Comment on above: Performed By: #### 2 352223, 1275123, 0751418, [id number], [id number] #### [facility] [address] [place] [address] Creatinine [Mass/Vol] 0.7 mg/dL Normal 0.5-1.3 [facility] Comment on above: Performed By: #### 2 793133, 1378297, 1473979, 27764296, 3379982 #### [facility] [address] [place] [address] Glucose [Mass/Vol] 112 mg/dL Normal 55-199 [facility] Comment on above: Performed By: #### 2 240476, 4786895, 9349907, 75613066, 2769077 #### [facility] [address] [place] [address] Potassium [Moles/Vol] 3.8 mmol/L Normal 3.5-5.3 [facility] Comment on above: Performed By: #### 2 972121, 6625228, 8580989, 09977461, 5558295 #### [facility] [address] [place] [address] Sodium [Moles/Vol] 140 mmol/L Normal 135-145 [facility] Comment on above: Performed By: #### 2 610814, 8413103, 3215065, 97273600, 0015484 #### [facility] [address] [place] [address] Urea nitrogen [Mass/Vol] 19 mg/dL Normal 5-21 [facility] Comment on above: Performed By: #### 2 349147, 2493689, 7169063, 65383387, 5891915 #### [facility] [address] [place] [address] Urea nitrogen/Creatinine [Mass ratio] 27 No Units High 10-20 [facility] Comment on above: Performed By: #### 2 661050, 3441641, 1697614, 84678775, 0326613 #### [facility] [address] [place] [address] CBC w/ Auto Diffon 4 Basophils/100 WBC (Bld) 1.4 % Normal 0.0-2.0 [facility] Comment on above: Performed By: #### 2 743970, 2101436, 3795129, 09641650, 6939416 #### [facility] [address] [place] [address] Basophils/Leukocytes Auto (Bld) [Pure # fraction] 0.1 E9/L Normal 0.0-0.2 [facility] Comment on above: Performed By: #### 2 787762, 0593571, 9998436, 66846007, 6146757 #### [facility] [address] [place] [address] Eosinophils (Bld) [#/Vol] 0.1 E9/L Normal 0.0-0.5 [facility] Comment on above: Performed By: #### 2 117152, 2866161, 0983255, 79881932, 4387222 #### [facility] [address] [place] [address] Eosinophils/100 WBC (Bld) 1.5 % Normal 0.0-8.0 [facility] Comment on above: Performed By: #### 2 159481, 8156323, 1120721, 75634846, 3422755 #### [facility] [address] [place] [address] Erythrocyte distribution width (RBC) [Ratio] 14.6 % High 10.9-14.2 [facility] Comment on above: Performed By: #### 2 931474, 7949407, 5568405, 91090670, 0543751 #### [facility] [address] [place] [address] Hematocrit (Bld) [Volume fraction] 34.9 % Normal 34.0-46.0 [facility] Comment on above: Performed By: #### 2 193677, 1228691, 5288610, 66021941, 8464665 #### [facility] [address] [place] [address] Hemoglobin (Bld) [Mass/Vol] 11.2 g/dL Low 12.0-16.0 [facility] Comment on above: Performed By: #### 2 696394, 2460545, 0051175, 27926833, 2411063 #### [facility] [address] [place] [address] Lymphocytes (Bld) [#/Vol] 0.8 E9/L Low 1.0-4.0 [facility] Comment on above: Performed By: #### 2 137053, 3087572, 2229971, 19378626, 6946756 #### [facility] [address] [place] [address] Lymphocytes/100 WBC (Bld) 11.3 % Low 14.0-50.0 [facility] Comment on above: Performed By: #### 2 661081, 3361739, 3847479, 96127218, 6494625 #### [facility] [address] [place] [address] MCH (RBC) [Entitic mass] 27.3 pg Normal 27.0-34.0 [facility] Comment on above: Performed By: #### 2 629795, 5507045, 6236909, 45205505, 1297106 #### [facility] [address] [place] [address] MCHC (RBC) [Mass/Vol] 32.1 g/dL Normal 31.4-36.0 [facility] Comment on above: Performed By: #### 2 581034, 3123899, 1134617, 18879884, 1466144 #### [facility] [address] [place] [address] MCV (RBC) [Entitic vol] 85.1 fL Normal 80.0-100.0 [facility] Comment on above: Performed By: #### 2 666604, 9601961, 9112751, 37432724, 6669586 #### [facility] [address] [place] [address] Monocytes (Bld) [#/Vol] 0.5 E9/L Normal 0.2-1.0 [facility] Comment on above: Performed By: #### 2 181314, 0047010, 9542489, 48235263, 8295199 #### [facility] [address] [place] [address] Neutrophils (Bld) [#/Vol] 6.0 E9/L Normal 2.0-7.5 [facility] Comment on above: Performed By: #### 2 872351, 3799317, 6106803, 78026434, 5342008 #### [facility] [address] [place] [address] Neutrophils/100 WBC (Bld) 79.5 % High 36.0-75.0 [facility] Comment on above: Performed By: #### 2 614705, 8043414, 1772596, 16424244, 6633618 #### [facility] [address] [place] [address] Platelet 198.0 E9/L Normal 150.0-500.0 [facility] Comment on above: Performed By: #### 2 662720, 2293301, 8110489, 33352507, 5096802 #### [facility] [address] [place] [address] Platelet mean volume (Bld) [Entitic vol] 7.9 fL Normal 6.4-10.8 [facility] Comment on above: Performed By: #### 2 115787, 4564876, 0982857, 15171546, 8239625 #### [facility] [address] [place] [address] RBC (Bld) [#/Vol] 4.1 E12/L Low 4.3-5.9 [facility] Comment on above: Performed By: #### 2 530580, 1532456, 5038166, 13980707, 0036986 #### [facility] [address] [place] [address] WBC corrected for nucl RBC Auto (Bld) [#/Vol] 7.5 E9/L Normal 4.0-11.0 [facility] Comment on above: Performed By: #### 2 543506, 5358388, 3971137, 76827335, 4982219 #### [facility] [address] [place] [address] CHEMISTRYOrdered By: SYSTEM SYSTEM on 12-12-2023 Albumin [Mass/Vol] 4.0 g/dL Normal 3.3 - 5.0 gm/dL Remisol Chem Albumin/Globulin [Mass ratio] 1.5 {ratio} Normal 1.1 - 2.2 Remisol Chem ALP [Catalytic activity/Vol] 72 [iU]/d Normal 21 - 98 Int._Unit/L Remisol Chem ALT No additional P-5'-P [Catalytic activity/Vol] 10 [iU]/d Normal 6 - 46 Int._Unit/L Remisol Chem Anion gap [Moles/Vol] 10 mmol/L Normal 6 - 16 mEq/L Remisol Chem AST [Catalytic activity/Vol] 11 [iU]/d Normal 5 - 43 Int._Unit/L Remisol Chem Bilirubin [Mass/Vol] 0.4 mg/dL Normal 0.0 - 1 .1 mg/dL Remisol Chem Bilirubin.direct [Mass/Vol] 0.1 mg/dL Normal 0.0 - 0.4 mg/dL Remisol Chem Bilirubin.indirect [Mass or moles/Vol] 0.3 mg/dL Normal 0.1 - 0.9 mg/dL Remisol Chem Calcium [Mass/Vol] 8.7 mg/dL Low 8.9 - 11. 1 mg/dL [facility] Chem Chloride [Moles/Vol] 108 mmol/L Normal 101 - 1 11 mmol/L [facility] Chem CO2 [Moles/Vol] 26 mmol/L Normal 21 - 31 mmol/L [facility] Chem Creatinine [Mass/Vol] 0.7 mg/dL Normal 0.5 - 1.3 mg/dL Remisol Chem eGFR 103 mL/min/1.73 m2 Normal >=59mL/mi n/ 1.73 m2 Rem[facility] Chem Globulin (S) [Mass/Vol] 2.6 g/dL Normal 1.4 - 4.0 gm/dL [facility] Chem Glucose [Mass/Vol] 112 mg/dL Normal 55 - 199 mg/dL [facility] Chem Lipase [Catalytic activity/Vol] 26 U/L Normal 13 - 58 unit/L [facility] Chem Potassium [Moles/Vol] 3.8 mmol/L Normal 3.5 - 5.3 mmol/L Remisol Chem Protein [Mass/Vol] 6.6 g/dL Normal 6.0 - 7.8 gm/dL [facility] Chem Sodium [Moles/Vol] 140 mmol/L Normal 135 - 145 mmol/L Rem[facility] Chem Urea nitrogen [Mass/Vol] 19 mg/dL Normal 5 - 21 mg/dL [facility] Chem Urea nitrogen/Creatinine [Mass ratio] 27 mg/mg High 10 - [address] Abdomen/Pelvis w/o Contra ston 12-12-2023 CT Abdomen/Pelvis w/o Contrast Exam Date/Time: 12/12/2023 14:01 EDT Reason for Exam: Abdominal pain, acute, nonlocalized;Other (please specify) Report IMPRESSION: Mild to moderate right hydroureteronephrosis, without distinct currently obstructing ureteral calculi. Multiple small bladder calculi, possibly recently passed stones. If there is concern for infectious process, correlate with urinalysis. Other chronic right-sided renal findings including subcapsular fluid collection, and right renal calcifications. EXAMINATION: CT Abdomen/Pelvis w/o Contrast HISTORY: Abdominal pain, acute, nonlocalized. Right flank pain. Pressure and frequency with urination for one week. Nausea and vomiting. History of , hernia repair, tubal ligation, cervical cancer TECHNIQUE: Non-IV contrast imaging of the abdomen and pelvis was performed using standard technique, scanning from just above the dome of the diaphragm to the symphysis pubis. Unenhanced imaging is limited for the evaluation of some intra-abdominal and pelvic pathology. Unless otherwise stated, incidental findings in this report do not require further routine follow-up imaging. All CT scans at this facility use dose modulation, iterative reconstruction, and/or weight based dosing when appropriate to reduce radiation dose to as low as reasonably achievable. COMPARISON: CT 11/21/2021. RESULT: Abdomen / Pelvis: Liver: Unremarkable. Biliary: Gallbladder unremarkable. Pancreas: Unremarkable. Spleen: No splenomegaly. Adrenals: No mass. Kidneys and urinary tract: Mild to moderate right hydroureteronephrosis. No distinct obstructing ureteral calculi on the right. Multiple small bladder calculi measuring Report up to 2 mm. Bladder otherwise decompressed. Multiple right-sided renal calcifications and/or calculi, similar to prior. Chronic right renal subcapsular fluid collection measuring around 2.0 cm in thickness, decreased in size from prior, and now containing some coarse calcifications. Associated mass effect on the right kidney. Mild right perinephric stranding, appears chronic. No distinct left renal calculi or left hydronephrosis. GI Tract: No bowel dilation. Diverticulosis without evidence for acute diverticulitis. Lymph Nodes: No lymphadenopathy. Mesentery/peritoneum/retrop eritoneum: No ascites or mass. Vasculature: Mild arterial atherosclerotic disease without aneurysm. Pelvis: Uterine calcifications, similar to prior. Bladder findings as above. No significant free fluid. Bones/Soft Tissues: No acute osseous findings. Degenerative changes. Underlying decreased bone mineral density. Chronic appearing wedge deformity of L3. Fat-containing ventral hernia or hernias, grossly unchanged. Lower thorax: Bibasilar atelectasis/scarring. Ordering Provider: Wes Chen FINAL REPORT Dictated: 12/12/2023 2:21 pm Gary Fabian MD Signed (Electronic Signature): 12/12/2023 2:21 pm Signed by: Gary Fabian MD Transcribed by: JG Technologist: CHAS Technical Comments Rectal Contrast Given? No Oral contrast amount in ml's: 0 Normal [facility] Consent for Treatmenton 11-24 Consent for Treatment [id number] Normal [facility] Discharge Instructionson Discharge Instructions [id number] Normal [facility] ED Clinical Summaryon 2023 ED Clinical Summary (Inserted Image. Tammy ble to display) [place] [id number] ED Clinical Summary Person Information Name: JANA CABALLERO [place] Age: 53 Years : 1970 Sex: Female Language: Syrian PCP: Brigitte Carpenter Marital Status: Phone: [phone] Visit Id: Visit Reason: Vomiting; Dysuria; Flank pain; RT HIP PAIN Speciality: Acuity: 3 Enc Type: Emergency Med Service: Emergency Arrival: 12/12/2023 12:42:34 Discharge: 12/12/2023 15:45:00 LOS: 000 03:03 Checkin: 12/12/2023 12:42:34 Checkout: 12/12/2023 15:45:00 Dispo Type: Home (Routine DC) EVENTS: Event Name Event Status Request Date/Time Start Date/Time Complete Date/Time Arrive Complete 12/12/2023 12:42:34 12/12/2023 12:42:34 12/12/2023 12:42:34 Document Home Meds Request 12/12/2023 12:42:34 Triage Complete 12/12/2023 12:42:34 12/12/2023 12:49:21 12/12/2023 12:49:21 Bed Assign Complete 12/12/2023 12:42:34 12/12/2023 12:42:34 12/12/2023 12:42:34 Dr Exam Complete 12/12/2023 12:42:34 12/12/2023 12:44:18 12/12/2023 12:44:18 RN Exam Complete 12/12/2023 12:42:34 12/12/2023 13:25:25 12/12/2023 13:25:25 Registration Complete 12/12/2023 12:44:18 12/12/2023 14:11:49 12/12/2023 14:11:49 Dr Exam Complete 12/12/2023 12:48:20 12/12/2023 12:48:20 12/12/2023 12:48:20 Dr Exam Complete 12/12/2023 12:50:33 12/12/2023 12:50:33 12/12/2023 12:50:33 Pending Labs Complete 12/12/2023 12:51:05 12/12/2023 15:00:31 Lab Complete 12/12/2023 12:51:05 12/12/2023 15:00:31 Urine Collect Complete 12/12/2023 12:51:05 12/12/2023 15:00:31 CT Complete 12/12/2023 12:51:05 12/12/2023 13:42:46 12/12/2023 14:01:17 Pending Labs Complete 12/12/2023 13:07:25 12/12/2023 13:07:25 12/12/2023 13:32:22 Lab Complete 12/12/2023 13:07:25 12/12/2023 13:07:25 12/12/2023 13:32:22 Pending Labs Complete 12/12/2023 13:10:47 12/12/2023 13:10:47 12/12/2023 13:10:47 Pending Labs Complete 12/12/2023 13:11:06 12/12/2023 13:11:06 12/12/2023 13:11:06 Fall Risk Request 12/12/2023 13:25:25 Reg Complete Request 12/12/2023 14:11:49 Reg Bed Request Complete 12/12/2023 14:11:49 12/12/2023 14:11:49 12/12/2023 14:11:49 Pending Labs Inlab 12/12/2023 14:14:52 12/12/2023 14:14:52 Lab Inlab 12/12/2023 14:14:52 12/12/2023 14:14:52 Meds Admin Complete 12/12/2023 14:28:02 12/12/2023 14:57:02 Discharge Complete 12/12/2023 15:26:59 12/12/2023 15:58:54 12/12/2023 15:58:54 Transfer Complete 12/12/2023 15:58:54 12/12/2023 15:58:54 12/12/2023 15:58:54 ADDRESS: [address] [facility] [phone] PHYS DOC NOTES: MEDICAL INFORMATION: Prescriptions Given: New Medications [id number], [address] [place], [place] [id number], [phone] acetaminophen-oxycodone (acetaminophen-oxycodone 325 mg-5 mg Tab) 1 Tablets By Mouth every 4 hours as needed for pain for 3 Days. Refills: 0. cephalexin (Keflex 500 mg Cap) 1 Capsules By Mouth every 6 hours for 7 Days. Refills: 0. ondansetron (Zofran ODT 4 mg Tab-Dis) 1 Tablets By Mouth every 8 hours as needed Nausea/Vomiting. Refills: 0. PATIENT EDUCATION INFORMATION: Instructions: Pyelonephritis, Adult, Ilul-dh-Vckb Follow up: With: Address: When: Brigitteemre Garcia [address], [address], [address] [address] Independent IP (1) In 3 days 12/15/2023 Comments: Follow-up with your primary care provider in 3 to 5 days. If symptoms worsen, do not improve, or new symptoms arise please report back to emergency department for further evaluation. DIAGNOSIS: Pyelonephritis, acute Normal [facility] ED Note-Physicianon 12-12-19 ED Note-Physician Basic Information Time Seen: Todd Fleming DO 12/12/2023 12:48 Chief Complaint C/o right flank pain, pressure and frequency with urination for 1 week. Also c/o nausea and vomiting today. Given 15 mg toradol and 4 mg zofran. History of Present Illness A 53-year-old female reports to the emergency department with chief complaint of right sided flank pain, pressure, and increased frequency with urination. Reports that she is concerned that she may either have a kidney stone, or a UTI. Reports nausea and vomiting today. States that she is feeling better now, she did receive Zofran, fluids, Toradol in squad en route. States that she has not had any fevers or chills. Reports history of kidney stones. She states that she has not take any medication for symptoms. Reports no known allergies. She states that that she did try ctxs-vkv-nyxyqxp remedies for her UTI, such as cranberry juice, without any improvement. Review of Systems A 10 point review of systems is negative except as noted above. Medical and Surgical History: Reviewed and noted Social history: Lives at home Family History: Reviewed. Tobacco: Denies, former Physical Exam Vitals & Measurements T: 37.4 ?C(Oral) HR: 80(Peripheral) RR: 16 BP: 151/92 SpO2: 96% HT: 170 cm WT: 92 kg BMI: 31.83 General: The patient appears well and in no apparent distress. Patient is resting comfortably on bed. Afebrile Skin: Warm, dry, no pallor noted. Head: Normocephalic, atraumatic Neck: No JVD Eye: PERRLA, EOMI ENT: Moist mucus membranes Cardiovascular: Regular rate normal peripheral perfusion. Radial pulses +2 bilaterally Respiratory: No respiratory distress no accessory muscle use no obvious audible wheezing Chest Wall: no deformity Musculoskeletal: normal ROM, no deformity, no swelling GI: No obvious distention soft nontender nondistended no guarding rebounding or rigidity. Positive right-sided CVA tenderness. Neurological: A&O moves all extremities equal strength and symmetry Psychiatric: Cooperative and appropriate Medical Decision Making MEDICAL DECISION MAKING Number and Complexity of Problems Differential Diagnosis: [] [facility] Data External documents reviewed: [] My EKG interpretation: [] My CT interpretation: reviewed My X-ray interpretation: [] My Ultrasound interpretation: [] Decision rules/scores evaluated: [] Discussed with: [] Treatment and Disposition ED Course: 53-year-old female reports to the emergency department chief complaint of right-sided flank pain. Reports been gone for a week, with worsening symptoms. Is concerned for possible UTI or kidney stone. Exam with patient rather benign except right-sided CVA tenderness. Abdomen was negative. No signs of peritonitis. She is afebrile nontachycardic. Patient was given Toradol and Zofran squad, which did improve her symptoms greatly. Due to concerns we did do lab work as well as CT of her abdomen. Lab reviewed and noted. No elevation of white count. Urinalysis was positive for nitrate positive UTI. CT of the abdomen showed that there was some mild right sided hydroureter nephrosis, with no obvious obstructing ureteral calculi. Concern for likely passed stone though. Patient stated that she did feel like she did pass a stone when she gave a urinalysis. Due to her symptoms though, likely more of acute pyelonephritis. No signs of sepsis at this time. Patient started on Keflex, did well to go home, which I was comfortable with. Discussed taking full course antibiotics as prescribed. Discussed return precautions. Follow-up with your primary care provider in 3 to 5 days. If symptoms worsen, do not improve, or new symptoms arise please report back to emergency department for further evaluation. The patient was understanding and agreeable to plan moving forward. Shared decision making: [] Code status: [] Assessment/Plan Pyelonephritis, acute (N10: Acute pyelonephritis) Orders: acetaminophen, 650 mg = 2 tab(s), Tab, Oral, Once, Stop date 12/12/23 14:27:00 EDT, STAT, Start date 12/12/23 14:27:00 EDT, 12/12/23 14:27:00 EDT acetaminophen-oxycodone, 1 tab(s), Oral, q4hr for pain for 3 day(s), 12 tab(s), Refill(s) 0, [id number], 170, cm, 12/12/23 12:49:00 EDT, Height/Length Dosing, 92, kg, 12/12/23 12:49:00 EDT, Weight Dosing cephalexin, 500 mg = 1 cap(s), Oral, q6hr, X 7 day(s), # 28 cap(s), Refills(s) 0, Pharmacy: [facility] #[id number], 170, cm, 12/12/23 12:49:00 EDT, Height/Length Dosing, 92, kg, 12/12/23 12:49:00 EDT, Weight Dosing ondansetron, 4 mg = 1 tab(s), Oral, q8hr, PRN Nausea/Vomiting, # 12 tab(s), Refills(s) 0, Pharmacy: [facility] #[id number], 170, cm, 12/12/23 12:49:00 EDT, Height/Length Dosing, 92, kg, 12/12/23 12:49:00 EDT, Weight Dosing Basic Metabolic Panel CBC w/ Auto Diff CT Abdomen/Pelvis w/o Contrast eGFR Extra Blue Tube Extra SST Tube Hepatic Function Panel Lipase Level UA With Cult Reflex Urine Culture Disposition Plan Patient Discharge Condition st (more content not included)... Normal [facility] Comment on above: Result Comment: Elec tronically Signed By: Wes Chen PA-C\.br\Date and Time Signed: 12/12/23 15:55 EDT\.br\Electronically Co-Signed By: Todd Fleming DO\.br\Date and Time Co-Signed: 12/12/23 17:35 EDT ED Patient Education Noteon 12-12-2023 ED Patient Education Note Nephrology Pyelonephritis, Adult Pyelonephritis is an infection that occurs in the kidney. The kidneys are organs that help clean the blood by moving waste out of the blood and into the pee (urine). This infection can happen quickly, or it can last for a long time. In most cases, it clears up with treatment and does not cause other problems. What are the causes? This condition may be caused by: ? Germs (bacteria) going from the bladder up to the kidney. This may happen after having a bladder infection. ? Germs going from the blood to the kidney. What increases the risk? This condition is more likely to develop in: ? women. ? Older people. ? People who have any of these conditions: ? Diabetes. ? Inflammation of the prostate gland (prostatitis), in males. ? Kidney stones or bladder stones. ? Other problems with the kidney or the parts of your body that carry pee from the kidneys to the bladder (ureters). ? Cancer. ? People who have a small, thin tube (catheter) placed in the bladder. ? People who are sexually active. ? Women who use a medicine that kills sperm (spermicide) to prevent . ? People who have had a prior urinary tract infection (UTI). What are the signs or symptoms? Symptoms of this condition include: ? Peeing often. ? A strong urge to pee right away. ? Burning or stinging when peeing. ? Belly pain. ? Back pain. ? Pain in the side (flank area). ? Fever or chills. ? Blood in the pee, or dark pee. ? Feeling sick to your stomach (nauseous) or throwing up (vomiting). How is this treated? This condition may be treated by: ? Taking antibiotic medicines by mouth (orally). ? Drinking enough fluids. If the infection is bad, you may need to stay in the hospital. You may be given antibiotics and fluids that are put directly into a vein through an IV tube. In some cases, other treatments may be needed. Follow these instructions at home: Medicines ? Take your antibiotic medicine as told by your doctor. Do not stop taking the antibiotic even if you start to feel better. ? Take girq-dkk-lmvfxic and prescription medicines only as told by your doctor. General instructions ? Drink enough fluid to keep your pee pale yellow. ? Avoid caffeine, tea, and carbonated drinks. ? Pee (urinate) often. Avoid holding in pee for long periods of time. ? Pee before and after sex. ? After pooping (having a bowel movement), women should wipe from front to back. Use each tissue only once. ? Keep all follow-up visits as told by your doctor. This is important. Contact a doctor if: ? You do not feel better after 2 days. ? Your symptoms get worse. ? You have a fever. Get help right away if: ? You cannot take your medicine or drink fluids as told. ? You have chills and shaking. ? You throw up. ? You have very bad pain in your side or back. ? You feel very weak or you pass out (faint). Summary ? Pyelonephritis is an infection that occurs in the kidney. ? In most cases, this infection clears up with treatment and does not cause other problems. ? Take your antibiotic medicine as told by your doctor. Do not stop taking the antibiotic even if you start to feel better. ? Drink enough fluid to keep your pee pale yellow. This information is not intended to replace advice given to you by your health care provider. Make sure you discuss any questions you have with your health care provider. Document Revised: 04/22/2022 Document Reviewed: 04/22/2022 [employer] Patient Education ? 2022 [employer] Normal [facility] ED Patient Summaryon 024 ED Patient Summary (Inserted Image. Tammy ble to display) [address] [address] Patient Discharge Instructions Person Information Name: JANA CABALLERO Age: 53 Years Arrival Date: 12/12/2023 12:42:34 Discharge Diagnosis: Pyelonephritis, acute Primary Care Physician: Brigitte Carpenter Provider Information Primary Provider: Todd Fleming DO Advanced Asset Management Analyst:None The exam and treatment you received in the Emergency Department were for an urgent problem and are not intended as complete care. It is important that you follow up with a doctor, nurse practitioner, or physician?s accounting administrative assistant for ongoing care. If your symptoms become worse or you do not improve as expected and you are unable to reach your usual health care provider, you should return to the Emergency Department. We are available 24 hours a day. JANA CABALLERO has been given the following list of patient education materials, prescriptions and follow-up instructions: Follow-up Instructions: With: Address: When: Brigitte Jose [address], [address], [place] [id number] Business (1) In 3 days 12/15/2023 Comments: Follow-up with your primary care provider in 3 to 5 days. If symptoms worsen, do not improve, or new symptoms arise please report back to emergency department for further evaluation. In the event that this physician does not participate in your insurance network, please consult with your insurance company to find a nearby participating provider. Patient Education Materials: Pyelrafat, Adult, Ypuw-lh-Xqaf A MESSAGE TO ALL PATIENTS REGARDING OPIOIDS PRESCRIPTION OPIOIDS: WHAT YOU NEED TO KNOW Prescription opioids can be used to help relieve lmkvrply-iz-resyag pain and are often prescribed following a surgery or injury, or for certain health conditions. These medications can be an important part of the treatment but also come with serious risks. It is important to work with your healthcare provider to make sure you are getting the safest, most effective care. WHAT ARE THE RISKS AND SIDE EFFECTS OF OPIOID USE? Prescription opioids carry serious risks of addiction and overdose, especially with prolonged use. An opioid overdose, often marked by slowed breathing, can cause sudden . The use of prescription opioids can have a number of side effects as well, even when taken as directed: ? Tolerance?meaning you might need to take more of the medication for the same pain relief ? Physical dependence?meaning you have symptoms of withdrawal when a medication is stopped ? Increased sensitivity to pain ? Constipation ? Nausea, vomiting, and dry mouth ? Sleepiness and dizziness ? Confusion ? Depression ? Low levels of testosterone that can result in lower sex drive, energy, and strength ? Itching and sweating RISKS ARE GREATER WITH: ? History of drug misuse, substance use disorder, or overdose ? Mental health conditions (such as depression or anxiety) ? Sleep apnea ? Older age (65 years and older) ? Avoid alcohol while taking prescription opioids. Also, unless specifically advised by your health care provider, medications to avoid include: ? Benzodiazepines (such as Xanax or Valium) ? Muscle relaxants (such as Soma or Flexeril) ? Hypnotics (such as Ambien or Lunesta) ? Other prescription opioids KNOW YOUR OPTIONS Talk to your health care provider about ways to manage your pain that don?t involve prescription opioids. Some of these options may actually work better and have fewer risks and side effects. Options may include: ? Pain relievers such as acetaminophen, ibuprofen, and naproxen ? Some medication that are also used for depression or seizures ? Physical therapy and exercise ? Cognitive behavioral therapy, a psychological, goal-directed approach, in which patients learn how to modify physical, behavioral, and emotional triggers of pain and stress. IF YOU ARE PRESCRIBED OPIOIDS FOR PAIN: ? Never take opioids in greater amounts or more often than prescribed. ? Follow up with your primary health care provider. o Work together to create a plan on how to manage your pain. o Talk about ways to help manage your pain that don?t involve prescription opioids. o Talk about any and all concerns and side effects. ? Help prevent misuse and abuse o Never sell or share prescription opioids. o Never use another person?s prescription opioids. ? Store prescription opioids in a secure place and out of reach of others (this may include visitors, children, friends, and family). ? Safely dispose of unused prescription opioids: Find your community drug take-back program or your pharmacy mail-back program, or flush them down the toilet, following guidance from the Food and Drug Administration (www.fda.gov/Drugs/Resource sForYou). ? Visit www.cdc.gov/drugoverdose to learn about the risks of (more content not included)... Normal [facility] HEMATOLOGYOrdered By: SYSTEM SYSTEM on 12-12-2023 Basophils/100 WBC (Bld) 1.4 % Normal 0.0 - 2.0 % Remisol Heme Basophils/Leukocytes Auto (Bld) [Pure # fraction] 0.1 E9/L Normal 0.0 - 0.2 E9/L Remisol Heme Eosinophils (Bld) [#/Vol] 0.1 E9/L Normal 0.0 - 0.5 E9/L Remisol Heme Eosinophils/100 WBC (Bld) 1.5 % Normal 0.0 - 8.0 % Remisol Heme Erythrocyte distribution width (RBC) [Ratio] 14.6 % High 10.9 - 14.2 % Remisol Heme Hematocrit (Bld) [Volume fraction] 34.9 % Normal 34.0 - 46.0 % Remisol Heme Hemoglobin (Bld) [Mass/Vol] 11.2 g/dL Low 12.0 - 16.0 gm/dL Remisol Heme Lymphocytes (Bld) [#/Vol] 0.8 E9/L Low 1.0 - 4.0 E9/L Remisol Heme Lymphocytes/100 WBC (Bld) 11.3 % Low 14.0 - 50.0 % Remisol Heme MCH (RBC) [Entitic mass] 27.3 pg Normal 27.0 - 34.0 pg Remisol Heme MCHC (RBC) [Mass/Vol] 32.1 g/dL Normal 31.4 - 36.0 gm/dL Remisol Heme MCV (RBC) [Entitic vol] 85.1 fL Normal 80.0 - 100.0 fL Remisol Heme Monocytes (Bld) [#/Vol] 0.5 E9/L Normal 0.2 - 1.0 E9/L Remisol Heme Monocytes/100 WBC (Bld) 6.3 % Normal 4.0 - 14.0 % Remisol Heme Neutrophils (Bld) [#/Vol] 6.0 E9/L Normal 2.0 - 7.5 E9/L Remisol Heme Neutrophils/100 WBC (Bld) 79.5 % High 36.0 - 75.0 % Remisol Heme Platelet 198.0 E9/L Normal 150.0 - 500.0 E9/L Remisol Heme Platelet mean volume (Bld) [Entitic vol] 7.9 fL Normal 6.4 - 10.8 fL Remisol Heme RBC (Bld) [#/Vol] 4.1 E12/L Low 4.3 - 5.9 E12/L Remisol Heme WBC corrected for nucl RBC Auto (Bld) [#/Vol] 7.5 E9/L Normal 4.0 - 11.0 E9/L Remisol Heme Hep Func Panelon 12-12-2023 Albumin [Mass/Vol] 4.0 g/dL Normal 3.3-5.0 [facility] Comment on above: Performed By: #### 2 [id number], 7189152, 4836183, [id number], 9752569 #### [facility] [address] [place] [address] Albumin/Globulin (S) [Mass conc ratio] 1.5 Normal 1.1-2.2 [facility] Comment on above: Performed By: #### 2 337043, 0238810, 7155654, 60322195, 1532255 #### [facility] [address] [place] [address] ALP [Catalytic activity/Vol] 72 Int._Unit/L Normal 21-98 [facility] Comment on above: Performed By: #### 2 685370, 9243506, 8022175, 06280962, 7989061 #### [facility] [address] [place] [address] ALT No additional P-5'-P [Catalytic activity/Vol] 10 Int._Unit/L Normal 6-46 [facility] Comment on above: Performed By: #### 2 461154, 0333431, 9667862, 22227061, 1257304 #### [facility] [address] [place] [address] AST [Catalytic activity/Vol] 11 Int._Unit/L Normal 5-43 [facility] Comment on above: Performed By: #### 2 995615, 2614922, 3499253, 51035184, 9037261 #### [facility] [address] [place] [address] Bilirubin [Mass/Vol] 0.4 mg/dL Normal 0.0-1.1 [facility] Comment on above: Performed By: #### 2 992673, 5473468, 3385262, 01348859, 0189376 #### [facility] [address] [place] [address] Bilirubin.direct [Mass/Vol] 0.1 mg/dL Normal 0.0-0.4 [facility] Comment on above: Performed By: #### 2 941354, 3774147, 7929913, 40759425, 0400284 #### [facility] [address] [place] [address] [place] [address] Bilirubin.indirect [Mass or moles/Vol] 0.3 mg/dL Normal 0.1-0.9 [facility] Comment on above: Performed By: #### 2 948319, 0866083, 7066176, 69239575, 9003693 #### [facility] [address] [place] [address] Globulin (S) [Mass/Vol] 2.6 g/dL Normal 1.4-4.0 [facility] Comment on above: Performed By: #### 2 185113, 1900893, 5798702, 66172235, 3632492 #### [facility] [address] [place] [address] Protein [Mass/Vol] 6.6 g/dL Normal 6.0-7.8 [facility] Comment on above: Performed By: #### 2 436029, 1909724, 1905273, 17163614, 8856721 #### [facility] [address] [place] [address] Lipase Levelon 12-12-2023 Lipase [Catalytic activity/Vol] 26 U/L Normal 13-58 [facility] Comment on above: Performed By: #### 2 967483, 5137503, 7133742, 92241877, 4016436 #### [facility] [address] [place] [address] Pre-Arrival Noteon Pre-Arrival Note Pre-Arrival Summary Name: , HEMA Current Date: 12/12/2023 12:42:51 EDT Gender: Female Date of : Age: 53 Pre-Arrival Type: EMS ETA: 12/12/2023 13:03:00 EDT Primary Care Physician: Presenting Problem: R Hip Pain / Flank Pain Pre-Arrival User: Referring Source: Location: Completion Date/Time: 12/12/2023 12:34:00 [facility] Emergency Department Pre-Hospital Report Form Vital Signs: 125/93, P 74, R 20, 98% on RA, GCS 15 Pre-Hospital Report: Fell on tuesday (12/05) onto laundry basket. Now has unbrearable right hip pain. Treatment in Route: 18 GA R AC, 4 mg Zofran, 15 mg Torodol Response to Treatment: Misc. Issues: Normal [facility] UA With Cult Reflexon 2023 Bacteria LM Ql (Urine sed) 3+ /HPF Abnormal Trace [facility] Comment on above: Performed By: #### 1 [id number], 7357135, 1633059 #### [facility] [address] [place] [address] Bilirubin Ql (U) 1+ Abnormal Negative [facility] Comment on above: Performed By: #### 1 5107854, 1177519, 9163205 #### [facility] [address] [place] [address] Clarity (U) TURBID Abnormal Clear [facility] Comment on above: Performed By: #### 1 3765796, 0080653, 5234860 #### [facility] [address] [place] [address] Color (U) YELLOW Normal Yellow [facility] Comment on above: Performed By: #### 1 1508457, 5277875, 0101300 #### [facility] [address] [place] [address] Epithelial cells.squamous LM.HPF (Urine sed) [#/Area] 0-2 Normal 0-2 [facility] Comment on above: Performed By: #### 1 1291229, 2899088, 1178749 #### [facility] [address] [place] [address] Glucose Test strip (U) [Mass/Vol] Negative Normal Negative [facility] Comment on above: Performed By: #### 1 2333491, 0453301, 0831559 #### [facility] [address] [place] [address] Hemoglobin Ql (U) 3+ Abnormal Negative [facility] Comment on above: Performed By: #### 1 1881659, 7695622, 1081713 #### [facility] [address] [place] [address] Ketones (U) [Mass/Vol] Negative Normal Negative [facility] Comment on above: Performed By: #### 1 0731816, 7470383, 3163363 #### [facility] [address] [place] [address] [place].plasma/Lithi um.RBC (Bld) [Mass ratio] 21-30 Abnormal 0-3 [facility] Comment on above: Performed By: #### 1 7995143, 6141064, 5501050 #### [facility] [address] [place] [address] Mucus Ql (Urine sed) TRACE Normal [facility] Comment on above: Performed By: #### 1 7257781, 3604184, 9306712 #### [facility] [address] [place] [address] Nitrite Ql (U) Positive Abnormal Negative [facility] Comment on above: Performed By: #### 1 7204425, 5940049, 4526687 #### [facility] [address] [place] [address] pH (U) 6.0 [pH] Normal 5.0-9.0 [facility] Comment on above: Performed By: #### 1 2560648, 3018795, 2538387 #### [facility] [address] [place] [address] Protein (U) [Mass/Vol] 2+ Abnormal Negative [facility] Comment on above: Performed By: #### 1 5050149, 5339489, 1953628 #### [facility] [address] [place] [address] Specific gravity (U) [Rel density] 1.015 Normal 1.005-1.030 [facility] Comment on above: Performed By: #### 1 0292183, 8944817, 1527333 #### [facility] [address] [place] [address] Type of Urine collection method Clean Catch Normal [facility] Comment on above: Result Comment: Had to read strip manually 12/12/2023 15:00:18 EDT [place] Performed By: #### 1 2451605, 0487676, 7766767 #### [facility] [address] [place] [address] Urobilinogen Qn (U) 2.0 {Court'U}/dL Abnormal 0.0-1.0 [facility] Comment on above: Performed By: #### 1 7233123, 1777280, 1730781 #### [facility] [address] [place] [address] WBC Auto Ql (U) 3+ Abnormal Negative [facility] Comment on above: Performed By: #### 1 3893112, 6080060, 8137559 #### [facility] [address] [place] [address] WBC casts LM.LPF (Urine sed) [#/Area] 0-3 Normal [facility] Comment on above: Performed By: #### 1 2131224, 7033541, 3421818 #### [facility] [address] [place] [address] WBC LM.HPF (Urine sed) [#/Area] /[HPF] Abnormal 0-5 [facility] Comment on above: Performed By: #### 1 5141150, 3800977, 2263854 #### [facility] [address] [place] [address] URINALYSISOrdered By: Jayme Menjivar on 12-12-2023 Bacteria LM Ql (Urine sed) 3+ /HPF Invalid Interpretation Code Trace/HPF [facility] UA Auto SS Bilirubin Ql (U) 1+ *ABN* (12/12/23 2:06 PM) Invalid Interpretation Code Negative [facility] UA Auto SS Clarity (U) Turbid *ABN* (12/12/23 2:06 PM) Invalid Interpretation Code Clear [facility] UA Auto SS Color (U) Yellow (12/12/23 2:06 PM) Normal Yellow [facility] UA Auto SS Epithelial cells.squamous LM.HPF (Urine sed) [#/Area] 0-2 /HPF Normal 0-2/HPF [facility] UA Auto SS Glucose Test strip (U) [Mass/Vol] Negative (12/12/23 2:06 PM) Normal Negative [facility] UA Auto SS Hemoglobin Ql (U) 3+ *ABN* (12/12/23 2:06 PM) Invalid Interpretation Code Negative [facility] UA Auto SS Ketones (U) [Mass/Vol] Negative (12/12/23 2:06 PM) Normal Negative [facility] UA Auto SS [place].plasma/Lithi um.RBC (Bld) [Mass ratio] 21-30 /HPF Invalid Interpretation Code 0-3/HPF [facility] UA Auto SS Mucus Ql (Urine sed) Trace (12/12/23 2:06 PM) Normal [facility] UA Auto SS Nitrite Ql (U) Positive *ABN* (12/12/23 2:06 PM) Invalid Interpretation Code Negative [facility] UA Auto SS pH (U) 6.0 (12/12/23 2:06 PM) Normal 5.0 - 9.0 [facility] UA Auto SS Protein (U) [Mass/Vol] 2+ *ABN* (12/12/23 2:06 PM) Invalid Interpretation Code Negative [facility] UA Auto SS Specific gravity (U) [Rel density] 1.015 (12/12/23 2:06 PM) Normal 1.005 - 1.030 [facility] UA Auto SS UA Spec Desc Clean Catch 1 (12/12/23 2:06 PM) Normal [facility] UA Auto SS Comment on above: Result Comment: Had to read strip manually 12/12/2023 15:00:18 EDT MA Urobilinogen Qn (U) 2.9579611 {Court'U}/dL Inv alid Interpretation Code 0.0 - 1.0 EU/dL [facility] UA Auto SS WBC Auto Ql (U) 3+ *ABN* (12/12/23 2:06 PM) Invalid Interpretation Code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 Prescribe or recommend medicines to control pain. Follow these instructions at home: ? Take kopi-yto-fgykxmo and prescription medicines only as told by your health care provider. ? If you were prescribed an antibiotic medicine, take it as told by your health care provider. Do not stop taking the antibiotic even if you start to feel better. ? Keep all follow-up visits. This is important. Contact a health care provider if: ? You have bleeding from your nose. ? There is a lump on your neck. ? You are not feeling better in 5 days. ? You feel worse instead of better. Get help right away if: ? You have severe pain that is not controlled with medicine. ? You have swelling, redness, or pain around your ear. ? You have stiffness in your neck. ? A part of your face is not moving (paralyzed). ? The bone behind your ear (mastoid bone) is tender when you touch it. ? You develop a severe headache. Summary ? Otitis media is redness, soreness, and swelling of the middle ear, usually resulting in pain and decreased hearing. ? This condition can go away on its own within 3?5 days. ? If the problem does not go away in 3?5 days, your health care provider may give you medicines to treat the infection. ? If you were prescribed an antibiotic medicine, take it as told by your health care provider. ? Follow all instructions that were given to you by your health care provider. This information is not intended to replace advice given to you by your health care provider. Make sure you discuss any questions you have with your health care provider. Document Revised: 12/21/2021 Document Reviewed: 12/21/2021 Elsevier Patient Education ? 2022 [employer] Infectious Disease Bacterial Conjunctivitis, Adult Bacterial conjunctivitis is an infection of your conjunctiva. This is the clear membrane that covers the white part of your eye and the inner part of your eyelid. This infection can make your eye: ? Red or pink. ? Itchy or irritated. This condition spreads easily from person to person (is contagious) and from one eye to the other eye. What are the causes? This condition is caused by germs (bacteria). You may get the infection if you come into close contact with: ? A person who has the infection. ? Items that have germs on them (are contaminate (more content not included)... Normal [facility] ED Patient Summaryon 024 ED Patient Summary (Inserted Image. Tammy ble to display) [place] [id number] Patient Discharge Instructions Person Information Name: JANA CABALLERO Age: 53 Years Arrival Date: 11/26/2023 17:17:40 Discharge Diagnosis: Conjunctivitis; Otitis media, left Primary Care Physician: Rangel Reyez DO Provider Information Primary Provider: Stefano Marino DO Advanced Asset Management Analyst:None The exam and treatment you received in the Emergency Department were for an urgent problem and are not intended as complete care. It is important that you follow up with a doctor, nurse practitioner, or physician?s accounting administrative assistant for ongoing care. If your symptoms become worse or you do not improve as expected and you are unable to reach your usual health care provider, you should return to the Emergency Department. We are available 24 hours a day. CABALLEROJANA has been given the following list of patient education materials, prescriptions and follow-up instructions: Follow-up Instructions: With: Address: When: Rangel Reyez [address] [place], [place] [id number] In 3 days 11/29/2023 Comments: Follow-up with your primary care provider in 3 to 5 days. If symptoms worsen, do not improve, or new symptoms arise please report back to emergency department for further evaluation. In the event that this physician does not participate in your insurance network, please consult with your insurance company to find a nearby participating provider. Patient Education Materials: Bacterial Conjunctivitis, Adult, Urjg-je-Knks; Otitis Media, Adult A MESSAGE TO ALL PATIENTS REGARDING OPIOIDS PRESCRIPTION OPIOIDS: WHAT YOU NEED TO KNOW Prescription opioids can be used to help relieve gulxrqun-wc-colzur pain and are often prescribed following a surgery or injury, or for certain health conditions. These medications can be an important part of the treatment but also come with serious risks. It is important to work with your healthcare provider to make sure you are getting the safest, most effective care. WHAT ARE THE RISKS AND SIDE EFFECTS OF OPIOID USE? Prescription opioids carry serious risks of addiction and overdose, especially with prolonged use. An opioid overdose, often marked by slowed breathing, can cause sudden . The use of prescription opioids can have a number of side effects as well, even when taken as directed: ? Tolerance?meaning you might need to take more of the medication for the same pain relief ? Physical dependence?meaning you have symptoms of withdrawal when a medication is stopped ? Increased sensitivity to pain ? Constipation ? Nausea, vomiting, and dry mouth ? Sleepiness and dizziness ? Confusion ? Depression ? Low levels of testosterone that can result in lower sex drive, energy, and strength ? Itching and sweating RISKS ARE GREATER WITH: ? History of drug misuse, substance use disorder, or overdose ? Mental health conditions (such as depression or anxiety) ? Sleep apnea ? Older age (65 years and older) ? Avoid alcohol while taking prescription opioids. Also, unless specifically advised by your health care provider, medications to avoid include: ? Benzodiazepines (such as Xanax or Valium) ? Muscle relaxants (such as Soma or Flexeril) ? Hypnotics (such as Ambien or Lunesta) ? Other prescription opioids KNOW YOUR OPTIONS Talk to your health care provider about ways to manage your pain that don?t involve prescription opioids. Some of these options may actually work better and have fewer risks and side effects. Options may include: ? Pain relievers such as acetaminophen, ibuprofen, and naproxen ? Some medication that are also used for depression or seizures ? Physical therapy and exercise ? Cognitive behavioral therapy, a psychological, goal-directed approach, in which patients learn how to modify physical, behavioral, and emotional triggers of pain and stress. IF YOU ARE PRESCRIBED OPIOIDS FOR PAIN: ? Never take opioids in greater amounts or more often than prescribed. ? Follow up with your primary health care provider. o Work together to create a plan on how to manage your pain. o Talk about ways to help manage your pain that don?t involve prescription opioids. o Talk about any and all concerns and side effects. ? Help prevent misuse and abuse o Never sell or share prescription opioids. o Never use another person?s prescription opioids. ? Store prescription opioids in a secure place and out of reach of others (this may include visitors, children, friends, and family). ? Safely dispose of unused prescription opioids: Find your community drug take-back program or your pharmacy mail-back program, or flush them down the toilet, following guidance from the Food and Drug Administration (www.fda.gov/Drugs/Resource sForYou). ? Visit www.cdc.gov/drugoverdose to learn about the risks of opio (more content not included)... Normal [facility] ED Note-Physicianon 11-15-19 ED Note-Physician Basic Information Time Seen: Todd Fleming DO 11/14/2023 12:28 Chief Complaint sinus pain, congestion x 3 days. Cough as well. History of Present Illness 53-year-old female presents with nasal congestion body aches and a cough for the past 3 days. She is been taking Tylenol qghxrx-pxt-jprvj. Denies sore throat, ear pain, shortness of breath or chest pain Review of Systems Review of systems negative unless otherwise stated in HPI Physical Exam Vitals & Measurements T: 36.4 ?C(Oral) HR: 68(Peripheral) RR: 16 BP: 131/82 SpO2: 98% HT: 170 cm WT: 91.8 kg BMI: 31.76 GENERAL: ALERT, NO ACUTE DISTRESS, talking full complete sentences SKIN: WARM, DRY, INTACT; NO CYANOSIS, NO RASH HEAD: NORMOCEPHALIC, ATRAUMATIC ENT: EYE: PERRL, EOMI, NORMAL CONJUNCTIVA, NO DISCHARGE NOSE: NARES PATENT MOUTH: ORAL MUCOSA MOIST THROAT: NO STRIDOR NECK: SUPPLE, TRACHEA MIDLINE, FROM CARDIOVASCULAR: RRR, NO MURMUR, +S1, +S2 RESPIRATORY: LUNGS CTA, NON-LABORED RESPIRATIONS, BS EQUAL, SYMMETRICAL EXPANSION, NO RHONCHI, WHEEZES, RALES, NO RETRACTIONS EXTREMITIES: FROM X 4 NEUROLOGICAL: A&OX3 PSYCHIATRIC: COOPERATIVE, APPROPRIATE MOOD AND AFFECT Medical Decision Making Negative for COVID influenza and likely viral and will be prescribed Bromfed and follow-up family doctor. Afebrile, not tachycardic, not tachypneic, nontoxic-appearing, tolerating p.o. and ambulating at baseline and hemodynamically stable to be discharged home. Educated side effect of medications. Answered all questions. Patient in agreement with treatment. Assessment/Plan 1. Viral sinusitis (J32.9: Chronic sinusitis, unspecified) Ordered: brompheniramine/dextrometho rphan/PSE, 10 mL, Oral, q4hr for cold symptoms for 2 day(s), 80 mL, Refill(s) 0, MAX 40 mL/day, [id number], 170, cm, 11/14/23 12:31:00 EST, Height/Length Dosing, 91.8, kg, 11/14/23 12:31:00 EST, Weight Dosing Other viral agents as the cause of diseases classified elsewhere (B97.89: Other viral agents as the cause of diseases classified elsewhere) Orders: Influenza A&B Ag Rapid COVID Antigen ([facility] Disposition Plan Patient Discharge Condition Stable Discharge Disposition Home Discharge Prescription List Prescriptions Bromfed DM oral syrup, 10 mL, Oral, q4hr, PRN Follow-up With When Contact Information Rangel Reyez DO, SOFIA, PED In 3 days 11/17/2023 EST [address] [place] [address] Additional Instructions: Patient Education Viral Respiratory Infection, Ugot-Do-Wfoj Attestation This visit was performed by both the physician and an APC. I performed all aspects of the MDM as documented. Problem List/Past Medical History Ongoing Abdominal fullness Abdominal pain Allergic rhinitis Anemia Bronchitis Class 1 obesity with body mass index (BMI) of 32.0 to 32.9 in adult Discoloration of skin of toe Dizziness ESBL E. coli carrier Exposure to COVID-19 virus Flank pain Former smoker Frequency of urination Gastroesophageal reflux disease Hiatal hernia History of cervical cancer History of kidney stones Hydronephrosis with urinary obstruction due to ureteral calculus kidney stones Malignant tumor of cervix Mild recurrent major depression Nausea in adult Nocturia Other urethral stricture, female Screening for diabetes mellitus Screening for lipid disorders Smoker Historical Anemia due to unknown mechanism Cervical cancer Chemotherapy Hernia migraines Radiation Procedure/Surgical History Cystoscopy (03/07/2020), :LEEP, exam under anesthesia (10/06/2016), hernia repair (11/25/2015), incisional hernia repair (05/13/2015), (2004), Tubal ligation (2003), Cancer cervix screening - up-to-date, lymph nodes removed from abdomen, T&A, urethra dialation. Medications Inpatient No active inpatient medications Home albuterol HFA 90 mcg/inh MDI, 2 puff(s), Inhalation, q4hr, PRN Bromfed DM oral syrup, 10 mL, Oral, q4hr, PRN ferrous sulfate 325 mg Tab, 325 mg= 1 tab(s), Oral, Daily ketorolac 10 mg Tab, 10 mg= 1 tab(s), Oral, q6hr, PRN Lexapro 10 mg Tab, 10 mg= 1 tab(s), Oral, Daily, 4 refills meclizine 25 mg Tab, 25 mg= 1 tab(s), Oral, TID, PRN meclizine 25 mg Tab, 25 mg= 1 tab(s), Oral, TID, PRN Naprosyn 500 mg Tab, 500 mg= 1 tab(s), Oral, BID, PRN One A Day Women's Complete, Oral, Daily Pantoprazole [address] Tab, 20 mg= 1 tab(s), Oral, Daily, 4 refills Allergies No Known Allergies Social History Alcohol - Denies Alcohol Use, 07/21/2012 Substance Abuse - Denies Substance Abuse, 07/21/2012 Tobacco - Low Risk, 02/16/2021 4 or less cigarettes(less than 1/4 pack)/day in last 30 days Tobacco Use:. Never Smokeless Tobacco Use:. Cigarettes, Ready to change: No. Household tobacco concerns: No. Yes, 10/15/2022 Former smoker, quit more than 30 days ago Tobacco Use:. Never Smokeless Tobacco Use:. Cigarettes, 10/12/2022 4 or less cigarettes(less than 1/4 pack)/day in last 30 days Tobacco Use:. Never (more content not included)... Normal [facility] Comment on above: Result Comment: Elec tronically Signed By: Debra Sol BRIONES\.br\Date and Time Signed: 11/14/23 14:12 EST\.br\Electronically Co-Signed By: Todd Fleming DO\.br\Date and Time Co-Signed: 11/15/23 07:09 EST Consent for Treatmenton 10-27 Consent for Treatment [id number] Normal [facility] Discharge Instructionson Discharge Instructions [id number] Normal [facility] ED Clinical Summaryon 2023 ED Clinical Summary (Inserted Image. Tammy ble to display) [place] [id number] ED Clinical Summary Person Information Name: JANA CABALLERO/[facility] Age: 53 Years : 1970 Sex: Female Language: Syrian PCP: Rangel Reyez DO Marital Status: Phone: [phone] Visit Id: Visit Reason: Cough; Sinus Pain/Congestion; SINUS PRESSURE & CONGESTION Speciality: Acuity: 4 Enc Type: Emergency Med Service: Emergency Arrival: 11/14/2023 12:22:25 Discharge: 11/14/2023 14:30:11 LOS: 000 02:08 Checkin: 11/14/2023 12:22:25 Checkout: 11/14/2023 14:30:11 Dispo Type: Home (Routine DC) EVENTS: Event Name Event Status Request Date/Time Start Date/Time Complete Date/Time Arrive Complete 11/14/2023 12:22:25 11/14/2023 12:22:25 11/14/2023 12:22:25 Document Home Meds Request 11/14/2023 12:22:25 Triage Complete 11/14/2023 12:22:25 11/14/2023 12:31:51 11/14/2023 12:31:51 Registration Complete 11/14/2023 12:25:45 11/14/2023 12:25:45 11/14/2023 12:25:45 Reg Complete Request 11/14/2023 12:25:45 Reg Bed Request Complete 11/14/2023 12:25:45 11/14/2023 12:25:45 11/14/2023 12:25:45 Bed Assign Complete 11/14/2023 12:27:42 11/14/2023 12:27:42 11/14/2023 12:27:42 Dr Exam Complete 11/14/2023 12:27:42 11/14/2023 12:28:00 11/14/2023 12:28:00 RN Exam Complete 11/14/2023 12:27:42 11/14/2023 12:34:18 11/14/2023 12:34:18 Registration Request 11/14/2023 12:28:00 Dr Exam Complete 11/14/2023 12:42:39 11/14/2023 12:42:39 11/14/2023 12:42:39 Pending Labs Complete 11/14/2023 12:53:28 11/14/2023 13:44:10 Lab Complete 11/14/2023 12:53:28 11/14/2023 13:44:10 Swab Complete 11/14/2023 12:53:28 11/14/2023 13:43:04 Discharge Complete 11/14/2023 14:09:02 11/14/2023 14:30:18 11/14/2023 14:30:18 Transfer Complete 11/14/2023 14:30:18 11/14/2023 14:30:18 11/14/2023 14:30:18 ADDRESS: [address] [facility] [id number] PHYS DOC NOTES: MEDICAL INFORMATION: Prescriptions Given: New Medications [id number], [address] [place], [place] [id number], [phone] brompheniramine/dextrometho rphan/PSE (Bromfed DM oral syrup) 10 Milliliter By Mouth every 4 hours as needed for cold symptoms for 2 Days. MAX 40 mL/day. Refills: 0. Medications to Continue with No Changes Other Medications albuterol (albuterol HFA 90 mcg/inh MDI) 2 Puffs Inhalation every 4 hours as needed for wheezing. Refills: 0. escitalopram (Lexapro 10 mg Tab) 1 Tablets By Mouth every day. Refills: 4. ferrous sulfate (ferrous sulfate 325 mg Tab) 1 Tablets By Mouth every day. ketorolac (ketorolac 10 mg Tab) 1 Tablets By Mouth every 6 hours as needed for pain. Refills: 0. meclizine (meclizine 25 mg Tab) 1 Tablets By Mouth 3 times a day as needed for dizziness. Refills: 0. meclizine (meclizine 25 mg Tab) 1 Tablets By Mouth 3 times a day as needed for dizziness. Refills: 0. multivitamin with minerals (One A Day Women's Complete) By Mouth every day. naproxen (Naprosyn 500 mg Tab) 1 Tablets By Mouth 2 times a day as needed for pain. Refills: 0. pantoprazole (Pantoprazole [address] Tab) 1 Tablets By Mouth every day. Refills: 4. PATIENT EDUCATION INFORMATION: Instructions: Viral Respiratory Infection, Gbod-Uh-Ztta Follow up: With: Address: When: Aissatou JOSHI, SOFIA Murray, PED [address] [place], [place] [id number] In 3 days 11/17/2023 DIAGNOSIS: 1:Viral sinusitis; Other viral agents as the cause of diseases classified elsewhere Normal [facility] ED Patient Education Noteon 11-14-2023 ED Patient Education Note Infectious Disease Viral Respiratory Infection A viral respiratory infection is an illness that affects parts of the body that are used for breathing. These include the lungs, nose, and throat. It is caused by a germ called a virus. Some examples of this kind of infection are: ? A cold. ? The flu (influenza). ? A respiratory syncytial virus (RSV) infection. What are the causes? This condition is caused by a virus. It spreads from person to person. You can get the virus if: ? You breathe in droplets from someone who is sick. ? You come in contact with people who are sick. ? You touch mucus or other fluid from a person who is sick. What are the signs or symptoms? Symptoms of this condition include: ? A stuffy or runny nose. ? A sore throat. ? A cough. ? Shortness of breath. ? Trouble breathing. ? Yellow or green fluid in the nose. Other symptoms may include: ? A fever. ? Sweating or chills. ? Tiredness (fatigue). ? Achy muscles. ? A headache. How is this treated? This condition may be treated with: ? Medicines that treat viruses. ? Medicines that make it easy to breathe. ? Medicines that are sprayed into the nose. ? Acetaminophen or NSAIDs, such as ibuprofen, to treat fever. Follow these instructions at home: Managing pain and congestion ? Take axtr-aek-bdhfcoe and prescription medicines only as told by your doctor. ? If you have a sore throat, gargle with salt water. Do this 3?4 times a day or as needed. ? To make salt water, dissolve ??1 tsp (3?6 g) of salt in 1 cup (237 mL) of warm water. Make sure that all the salt dissolves. ? Use nose drops made from salt water. This helps with stuffiness (congestion). It also helps soften the skin around your nose. ? Take 2 tsp (10 mL) of honey at bedtime to lessen coughing at night. ? Do not give honey to children who are younger than 1 year old. ? Drink enough fluid to keep your pee (urine) pale yellow. General instructions ? Rest as much as possible. ? Do not drink alcohol. ? Do not smoke or use any products that contain nicotine or tobacco. If you need help quitting, ask your doctor. ? Keep all follow-up visits. How is this prevented? ? Get a flu shot every year. Ask your doctor when you should get your flu shot. ? Do not let other people get your germs. If you are sick: ? Wash your hands with soap and water often. Wash your hands after you cough or sneeze. Wash hands for at least 20 seconds. If you cannot use soap and water, use hand power tool repairer. ? Cover your mouth when you cough. Cover your nose and mouth when you sneeze. ? Do not share cups or eating utensils. ? Clean commonly used objects often. Clean commonly touched surfaces. ? Stay home from work or school. ? Avoid contact with people who are sick during cold and flu season. This is in fall and winter. Get help if: ? Your symptoms last for 10 days or longer. ? Your symptoms get worse over time. ? You have very bad pain in your face or forehead. ? Parts of your jaw or neck get very swollen. ? You have shortness of breath. Get help right away if: ? You feel pain or pressure in your chest. ? You have trouble breathing. ? You faint or feel like you will faint. ? You keep vomiting and it gets worse. ? You feel confused. These symptoms may be an emergency. Get help right away. Call your local emergency services (911 in the [place] ? Do not wait to see if the symptoms will go away. ? Do not drive yourself to the hospital. Summary ? A viral respiratory infection is an illness that affects parts of the body that are used for breathing. ? Examples of this illness include a cold, the flu, and a respiratory syncytial virus (RSV) infection. ? The infection can cause a runny nose, cough, sore throat, and fever. ? Follow what your doctor tells you about taking medicines, drinking lots of fluid, washing your hands, resting at home, and avoiding people who are sick. This information is not intended to replace advice given to you by your health care provider. Make sure you discuss any questions you have with your health care provider. Document Revised: 12/17/2021 Document Reviewed: 12/17/2021 [employer] Patient Education ? 2022 [employer] Normal [facility] ED Patient Summaryon 024 ED Patient Summary (Inserted Image. Tammy ble to display) [place] [id number] Patient Discharge Instructions Person Information Name: JANA CABALLERO Age: 53 Years Arrival Date: 11/14/2023 12:22:25 Discharge Diagnosis: 1:Viral sinusitis; Other viral agents as the cause of diseases classified elsewhere Primary Care Physician: Rangel Reyez DO Provider Information Primary Provider: Todd Fleming DO Advanced Asset Management Analyst:None The exam and treatment you received in the Emergency Department were for an urgent problem and are not intended as complete care. It is important that you follow up with a doctor, nurse practitioner, or physician?s accounting administrative assistant for ongoing care. If your symptoms become worse or you do not improve as expected and you are unable to reach your usual health care provider, you should return to the Emergency Department. We are available 24 hours a day. JANA CABALLERO has been given the following list of patient education materials, prescriptions and follow-up instructions: Follow-up Instructions: With: Address: When: Aissatou JOSHI, SOFIA Murray, PED [address] [place], [place] [phone] In 3 days 11/17/2023 In the event that this physician does not participate in your insurance network, please consult with your insurance company to find a nearby participating provider. Patient Education Materials: Viral Respiratory Infection, Ofyl-Ko-Eqgn A MESSAGE TO ALL PATIENTS REGARDING OPIOIDS PRESCRIPTION OPIOIDS: WHAT YOU NEED TO KNOW Prescription opioids can be used to help relieve tddgsqjb-in-xgkegn pain and are often prescribed following a surgery or injury, or for certain health conditions. These medications can be an important part of the treatment but also come with serious risks. It is important to work with your healthcare provider to make sure you are getting the safest, most effective care. WHAT ARE THE RISKS AND SIDE EFFECTS OF OPIOID USE? Prescription opioids carry serious risks of addiction and overdose, especially with prolonged use. An opioid overdose, often marked by slowed breathing, can cause sudden . The use of prescription opioids can have a number of side effects as well, even when taken as directed: ? Tolerance?meaning you might need to take more of the medication for the same pain relief ? Physical dependence?meaning you have symptoms of withdrawal when a medication is stopped ? Increased sensitivity to pain ? Constipation ? Nausea, vomiting, and dry mouth ? Sleepiness and dizziness ? Confusion ? Depression ? Low levels of testosterone that can result in lower sex drive, energy, and strength ? Itching and sweating RISKS ARE GREATER WITH: ? History of drug misuse, substance use disorder, or overdose ? Mental health conditions (such as depression or anxiety) ? Sleep apnea ? Older age (65 years and older) ? Avoid alcohol while taking prescription opioids. Also, unless specifically advised by your health care provider, medications to avoid include: ? Benzodiazepines (such as Xanax or Valium) ? Muscle relaxants (such as Soma or Flexeril) ? Hypnotics (such as Ambien or Lunesta) ? Other prescription opioids KNOW YOUR OPTIONS Talk to your health care provider about ways to manage your pain that don?t involve prescription opioids. Some of these options may actually work better and have fewer risks and side effects. Options may include: ? Pain relievers such as acetaminophen, ibuprofen, and naproxen ? Some medication that are also used for depression or seizures ? Physical therapy and exercise ? Cognitive behavioral therapy, a psychological, goal-directed approach, in which patients learn how to modify physical, behavioral, and emotional triggers of pain and stress. IF YOU ARE PRESCRIBED OPIOIDS FOR PAIN: ? Never take opioids in greater amounts or more often than prescribed. ? Follow up with your primary health care provider. o Work together to create a plan on how to manage your pain. o Talk about ways to help manage your pain that don?t involve prescription opioids. o Talk about any and all concerns and side effects. ? Help prevent misuse and abuse o Never sell or share prescription opioids. o Never use another person?s prescription opioids. ? Store prescription opioids in a secure place and out of reach of others (this may include visitors, children, friends, and family). ? Safely dispose of unused prescription opioids: Find your community drug take-back program or your pharmacy mail-back program, or flush them down the toilet, following guidance from the Food and Drug Administration (www.fda.gov/Drugs/Resource sForYou). ? Visit www.cdc.gov/drugoverdose to learn about the risks of opioids abuse and overdose. ? If you believe you may be struggling with addiction, tell your health neonatal critical care nurse and ask for guidance or call [facility] Caryn (more content not included)... Normal [facility] Influenza A&B Agon 4 Influenzae A Ag Negative Normal Negative [facility] Comment on above: Performed By: #### 2 [id number] ####[facility] [id number] [place] [address] Influenzae B Ag Negative Normal Negative [facility] Comment on above: Result Comment: Test sensitivity and specificity vary for age group, specimen type, antigen types, and prevalence of disease. Test results must be evaluated in conjunction with other clinical data available to the physician. Individuals who received nasally administered Influenza A vaccine may have positive test results up to 3 days after vaccination. Performed By: #### 2 [id number] ####[facility] [id number] [place] [address] MICRO OTHER TESTSOrdered By: Radha webber 11-14-2023 Influenzae A Ag Negative (11/14/23 1:12 PM) Normal Negative [facility] Man Sero Influenzae B Ag Negative 1 (11/14/23 1:12 PM) Normal Negative [facility] Comment on above: Interpretive Data: T est sensitivity and specificity vary for age group, specimen type, antigen types, and prevalence of disease. Test results must be evaluated in conjunction with other clinical data available to the physician. Individuals who received nasally administered Influenza A vaccine may have positive test results up to 3 days after vaccination. Rapid COV Int NEG Ctl Pass (11/14/23 1:12 PM) Normal [facility] Man Sero Rapid COV Int POS Ctl Pass (11/14/23 1:12 PM) Normal [facility] Sero SARS-CoV+SARS-CoV-2 (COVID-19) Ag IA.rapid Ql (Resp) Not Detected 2 (11/14/23 1:12 PM) Normal Not Detected [facility] Comment on above: Interpretive Data: T he [employer] System for Rapid Detection of SARS-CoV-2 is a chromatographic digital immunoassay intended for the direct and qualitative detection of SARS-CoV-2 nucleocapsid antigens in nasal swabs from individuals who are suspected of COVID-19 by their healthcare provider within the first five days of the onset of symptoms. Negative results should be treated as presumptive, do not rule out SARS-CoV-2 infection and should not be used as the sole basis for treatment or patient management decisions, including infection control decisions. Negative results should be considered in the context of a patient s recent exposures, history and the presence of clinical signs and symptoms consistent with COVID-19, and confirmed with a molecular assay, if necessary, for patient management. For in vitro diagnostic use. In the [place], only for use under an Emergency Use Authorization. In the [place], this test has not been FDA cleared or approved; this test has been authorized by FDA under an EUA for use by authorized laboratories; use by laboratories certified under the CLIA, 42 U.S.C. 263a, that meet requirements to perform moderate, high, or waived complexity tests and at the Point of Care (POC), i.e., in patient care settings operating under a CLIA Certificate of Waiver, Certificate of Compliance, or Certificate of Accreditation. This test has been authorized only for the detection of proteins from SARS-CoV-2, not for any other viruses or pathogens; and, in the [place], this test is only authorized for the duration of the declaration that circumstances exist justifying the authorization of emergency use of in vitro diagnostics for detection and/or diagnosis of the virus that causes COVID-19 under Section 564(b)(1) of the Act, 21 U.S.C. 360bbb-3(b)(1), unless the authorization is terminated or revoked sooner. Rapid COVID Antigen ([facility])on 11-14-2023 Rapid COV Int NEG Ctl Pass Normal [facility] Comment on above: Performed By: #### 2 [id number] ####[facility] [id number] [place] [address] Rapid COV Int POS Ctl Pass Normal [facility] Comment on above: Performed By: #### 2 [id number] ####[place] [address] [place] [address] SARS-CoV+SARS-CoV-2 (COVID-19) Ag IA.rapid Ql (Resp) Not detected Normal Not Detected [facility] Comment on above: Result Comment: The [employer] System for Rapid Detection of SARS-CoV-2 is a chromatographic digital immunoassay intended for the direct and qualitative detection of SARS-CoV-2 nucleocapsid antigens in nasal swabs from individuals who are suspected of COVID-19 by their healthcare provider within the first five days of the onset of symptoms. Negative results should be treated as presumptive, do not rule out SARS-CoV-2 infection and should not be used as the sole basis for treatment or patient management decisions, including infection control decisions. Negative results should be considered in the context of a patient?s recent exposures, history and the presence of clinical signs and symptoms consistent with COVID-19, and confirmed with a molecular assay, if necessary, for patient management. For in vitro diagnostic use. In the [place], only for use under an Emergency Use Authorization. In the [place], this test has not been FDA cleared or approved; this test has been authorized by FDA under an EUA for use by authorized laboratories; use by laboratories certified under the CLIA, 42 U.S.C. ?263a, that meet requirements to perform moderate, high, or waived complexity tests and at the Point of Care (POC), i.e., in patient care settings operating under a CLIA Certificate of Waiver, Certificate of Compliance, or Certificate of Accreditation. This test has been authorized only for the detection of proteins from SARS-CoV-2, not for any other viruses or pathogens; and, in the [place], this test is only authorized for the duration of the declaration that circumstances exist justifying the authorization of emergency use of in vitro diagnostics for detection and/or diagnosis of the virus that causes COVID-19 under Section 564(b)(1) of the Act, 21 U.S.C. ? 360bbb-3(b)(1), unless the authorization is terminated or revoked sooner. Performed By: #### 2 [id number] ####[facility] [address] [place] [address] ED Note-Physicianon 10-08-19 ED Note-Physician Basic Information Time Seen: Bhupendra Dale PA-C 10/03/2023 14:13 Chief Complaint patient c/o right hip pain that radiates down into leg and up into side. states that she was seen here on tuesday with negative xray. denies recent injury History of Present Illness 52-year-old female comes to the ED for evaluation of right-sided hip pain. She states she had a fall approximate week ago landing on her right hip. She was seen here yesterday had negative x-rays. She continues to have pain. She describes sciatic type pain. Points to the right posterior hip as area of tenderness some radiation down the right leg. No acute weakness or paresthesias. No fever, chills, nausea or vomiting. No abdominal pain. No urinary symptoms, but she is concerned for UTI stated she has had UTIs in the past with right-sided flank pain. She is taken Naprosyn without relief. Review of Systems A 10 point review of systems is negative except as noted above. Medical and Surgical History: Reviewed and noted Social history: Lives at home Tobacco: Denies Physical Exam Vitals & Measurements T: 36.8 ?C(Oral) HR: 65(Peripheral) RR: 18 BP: 144/76 SpO2: 99% HT: 170 cm WT: 91.8 kg BMI: 31.76 Nurses notes and vital signs reviewed and patient is not hypoxic. General: The patient appears well, resting comfortably. Skin: Warm, dry. Head: Atraumatic. Neck: No JVD. Eye: Normal conjunctiva. Ears, Nose, Mouth, and Throat: Moist mucous membranes. Cardiovascular: Strong distal pulses. Chest wall: Respiratory: Respirations are nonlabored. Back: Normal range of motion. Musculoskeletal: Tenderness of the right sciatic region. No midline bony tenderness. Good range of motion. No difficulty with ambulation. No evidence of neurovascular compromise Gastrointestinal: Soft and nontender Urological: Neurological: Awake and alert. No focal deficits. Follows commands. Psychiatric: Cooperative. Medical Decision Making Patient has right hip pain after a fall a week ago. Did review previous ED note. Negative x-rays at that time. She has had no difficulty ambulating here. She was concerned for possible kidney infection and urinalysis was obtained and is negative. She is treated symptomatically with pain medications. She is discharged home PCP follow-up. Patient was encouraged to return to the ED if symptoms worsen or change. Assessment/Plan Contusion, hip (S70.00XA: Contusion of unspecified hip, initial encounter) Ordered: acetaminophen-oxycodone, 1 tab(s), Oral, q6hr as needed for pain for 3 day(s), 12 tab(s), Refill(s) 0, [id number], 170, cm, 10/03/23 14:13:00 EST, Height/Length Dosing, 91.8, kg, 10/03/23 14:13:00 EST, Weight Dosing Orders: UA With Cult Reflex Disposition Plan Patient Discharge Condition Disposition: Discharged home Condition: Improved and stable Counseled: Patient and/or family were counseled to workup, results, treatment plan and follow-up recommendations Discharge Prescription List Prescriptions Percocet 5 mg-325 mg oral tablet, 1 tab(s), Oral, q6hr, PRN Follow-up With When Contact Information Rangel Reyez In 3 days 10/06/2023 EST [address] [place] [address] Additional Instructions: Patient Education Hip Pain Attestation Patient seen and evaluated by the physician accounting administrative assistant. Attending physician was present in the emergency department and supervised care. This visit was performed by both the physician and an APC. I performed all aspects of the MDM as documented. This report was transcribed using voice recognition software. Every effort was made to ensure accuracy, however, inadvertently computerized director of retail analytics mistakes may be present. Appropriate healthcare PPE was used in evaluating this patient. The patient was placed in a mask. The healthcare provider was wearing mask, gloves, and utilizing proper hand hygiene. All equipment was properly cleansed. Problem List/Past Medical History Ongoing Abdominal fullness Abdominal pain Allergic rhinitis Anemia Bronchitis Class 1 obesity with body mass index (BMI) of 32.0 to 32.9 in adult Discoloration of skin of toe Dizziness ESBL E. coli carrier Exposure to COVID-19 virus Flank pain Former smoker Frequency of urination Gastroesophageal reflux disease Hiatal hernia History of cervical cancer History of kidney stones Hydronephrosis with urinary obstruction due to ureteral calculus kidney stones Malignant tumor of cervix Mild recurrent major depression Nausea in adult Nocturia Other urethral stricture, female Screening for diabetes mellitus Screening for lipid disorders Smoker Historical Anemia due to unknown mechanism Cervical cancer Chemotherapy Hernia migraines Radiation Procedure/Surgical History Cystoscopy (03/07/2020), :LEEP, exam under anesthesia (10/06/2016), hernia repair (11/25/2015), incisional hernia repair (05/13/2015), (2003), Tubal ligation (2003), Cancer cervix screening (more content not included)... Normal [facility] Comment on above: Result Comment: Elec tronically Signed By: Bhupendra Dale PA-C\.br\Date and Time Signed: 10/04/23 11:25 EST\.br\Electronically Co-Signed By: Todd Fleming DO\.br\Date and Time Co-Signed: 10/08/23 07:19 EST Consent for Treatmenton Consent for Treatment [id number] Normal [facility] Discharge Instructionson Discharge Instructions [id number] [facility] ED Clinical Summaryon 2023 ED Clinical Summary (Inserted Image. Tammy ble to display) [address] [address] ED Clinical Summary Person Information Name: JANA CABALLERO[place] Age: 52 Years : 1970 Sex: Female Language: Syrian PCP: Rangel Reyez DO Marital Status: Phone: [phone] Visit Id: Visit Reason: Hip pain-swelling; LOWER BACK PAIN, RIGHT SIDE PAIN Speciality: Acuity: 4 Enc Type: Emergency Med Service: Emergency Arrival: 10/03/2023 14:02:19 Discharge: 10/03/2023 15:57:13 LOS: 000 01:55 Checkin: 10/03/2023 14:02:19 Checkout: 10/03/2023 15:57:13 Dispo Type: Home (Routine DC) EVENTS: Event Name Event Status Request Date/Time Start Date/Time Complete Date/Time Arrive Complete 10/03/2023 14:02:19 10/03/2023 14:02:19 10/03/2023 14:02:19 Document Home Meds Request 10/03/2023 14:02:19 Triage Complete 10/03/2023 14:02:19 10/03/2023 14:13:26 10/03/2023 14:13:26 Bed Assign Complete 10/03/2023 14:08:42 10/03/2023 14:08:42 10/03/2023 14:08:42 Dr Exam Complete 10/03/2023 14:08:42 10/03/2023 14:13:26 10/03/2023 14:13:26 RN Exam Complete 10/03/2023 14:08:42 10/03/2023 14:55:09 10/03/2023 14:55:09 Registration Complete 10/03/2023 14:13:26 10/03/2023 14:49:57 10/03/2023 14:49:57 Dr Exam Complete 10/03/2023 14:14:22 10/03/2023 14:14:22 10/03/2023 14:14:22 Pending Labs Complete 10/03/2023 14:38:22 10/03/2023 15:11:47 Lab Complete 10/03/2023 14:38:22 10/03/2023 15:11:47 Urine Collect Complete 10/03/2023 14:38:22 10/03/2023 15:11:47 Reg Complete Request 10/03/2023 14:49:57 Reg Bed Request Complete 10/03/2023 14:49:57 10/03/2023 14:49:57 10/03/2023 14:49:57 Discharge Complete 10/03/2023 15:52:21 10/03/2023 16:01:29 10/03/2023 16:01:29 Transfer Complete 10/03/2023 16:01:29 10/03/2023 16:01:29 10/03/2023 16:01:29 ADDRESS: [address] [facility] [id number] PHYS DOC NOTES: MEDICAL INFORMATION: Prescriptions Given: New Medications [id number], [address] [place], [place] [id number], [phone] acetaminophen-oxycodone (Percocet 5 mg-325 mg oral tablet) 1 Tablets By Mouth every 6 hours as needed as needed for pain for 3 Days. Refills: 0. Medications to Continue with No Changes Other Medications albuterol (albuterol HFA 90 mcg/inh MDI) 2 Puffs Inhalation every 4 hours as needed for wheezing. Refills: 0. escitalopram (Lexapro 10 mg Tab) 1 Tablets By Mouth every day. Refills: 4. ferrous sulfate (ferrous sulfate 325 mg Tab) 1 Tablets By Mouth every day. ketorolac (ketorolac 10 mg Tab) 1 Tablets By Mouth every 6 hours as needed for pain. Refills: 0. meclizine (meclizine 25 mg Tab) 1 Tablets By Mouth 3 times a day as needed for dizziness. Refills: 0. meclizine (meclizine 25 mg Tab) 1 Tablets By Mouth 3 times a day as needed for dizziness. Refills: 0. multivitamin with minerals (One A Day Women's Complete) By Mouth every day. naproxen (Naprosyn 500 mg Tab) 1 Tablets By Mouth 2 times a day as needed for pain. Refills: 0. naproxen (naproxen 500 mg Tab) 1 Tablets By Mouth 2 times a day for 7 Days. Refills: 0. pantoprazole (Pantoprazole [address] Tab) 1 Tablets By Mouth every day. Refills: 4. PATIENT EDUCATION INFORMATION: Instructions: Hip Pain Follow up: With: Address: When: Rangel Reyez [address] [place], [place] [phone] In 3 days 10/06/2023 DIAGNOSIS: Contusion, hip Normal [facility] ED Patient Education Noteon 10-03-2023 ED Patient Education Note Orthopedics Hip Pain The hip is the joint between the upper legs and the lower pelvis. The bones, cartilage, tendons, and muscles of your hip joint support your body and allow you to move around. Hip pain can range from a minor ache to severe pain in one or both of your hips. The pain may be felt on the inside of the hip joint near the groin, or on the outside near the buttocks and upper thigh. You may also have swelling or stiffness in your hip area. Follow these instructions at home: Managing pain, stiffness, and swelling ? If directed, put ice on the painful area. To do this: ? Put ice in a plastic bag. ? Place a towel between your skin and the bag. ? Leave the ice on for 20 minutes, 2?3 times a day. ? If directed, apply heat to the affected area as often as told by your health care provider. Use the heat source that your health care provider recommends, such as a moist heat pack or a heating pad. ? Place a towel between your skin and the heat source. ? Leave the heat on for 20?30 minutes. ? Remove the heat if your skin turns bright red. This is especially important if you are unable to feel pain, heat, or cold. You may have a greater risk of getting burned. Activity ? Do exercises as told by your health care provider. ? Avoid activities that cause pain. General instructions ? Take kttk-ydp-bqgruoa and prescription medicines only as told by your health care provider. ? Keep a journal of your symptoms. Write down: ? How often you have hip pain. ? The location of your pain. ? What the pain feels like. ? What makes the pain worse. ? Sleep with a pillow between your legs on your most comfortable side. ? Keep all follow-up visits as told by your health care provider. This is important. Contact a health care provider if: ? You cannot put weight on your leg. ? Your pain or swelling continues or gets worse after one week. ? It gets harder to walk. ? You have a fever. Get help right away if: ? You fall. ? You have a sudden increase in pain and swelling in your hip. ? Your hip is red or swollen or very tender to touch. Summary ? Hip pain can range from a minor ache to severe pain in one or both of your hips. ? The pain may be felt on the inside of the hip joint near the groin, or on the outside near the buttocks and upper thigh. ? Avoid activities that cause pain. ? Write down how often you have hip pain, the location of the pain, what makes it worse, and what it feels like. This information is not intended to replace advice given to you by your health care provider. Make sure you discuss any questions you have with your health care provider. Document Revised: 01/28/2020 Document Reviewed: 01/28/2020 [employer] Patient Education ? 2022 [employer] Normal [facility] ED Patient Summaryon 024 ED Patient Summary (Inserted Image. Tammy ble to display) [place] [id number] Patient Discharge Instructions Person Information Name: JANA CABALLERO Age: 52 Years Arrival Date: 10/03/2023 14:02:19 Discharge Diagnosis: Contusion, hip Primary Care Physician: Rangel Reyez DO Provider Information Primary Provider: Todd Fleming DO Advanced Asset Management Analyst:Bhupendra Dale PA-C The exam and treatment you received in the Emergency Department were for an urgent problem and are not intended as complete care. It is important that you follow up with a doctor, nurse practitioner, or physician?s accounting administrative assistant for ongoing care. If your symptoms become worse or you do not improve as expected and you are unable to reach your usual health care provider, you should return to the Emergency Department. We are available 24 hours a day. CABALLEROJANA PERKINS has been given the following list of patient education materials, prescriptions and follow-up instructions: Follow-up Instructions: With: Address: When: Rangel Reyez [address] [address] [place] [phone] In 3 days 10/06/2023 In the event that this physician does not participate in your insurance network, please consult with your insurance company to find a nearby participating provider. Patient Education Materials: Hip Pain A MESSAGE TO ALL PATIENTS REGARDING OPIOIDS PRESCRIPTION OPIOIDS: WHAT YOU NEED TO KNOW Prescription opioids can be used to help relieve rzfjbdwr-np-njpprx pain and are often prescribed following a surgery or injury, or for certain health conditions. These medications can be an important part of the treatment but also come with serious risks. It is important to work with your healthcare provider to make sure you are getting the safest, most effective care. WHAT ARE THE RISKS AND SIDE EFFECTS OF OPIOID USE? Prescription opioids carry serious risks of addiction and overdose, especially with prolonged use. An opioid overdose, often marked by slowed breathing, can cause sudden . The use of prescription opioids can have a number of side effects as well, even when taken as directed: ? Tolerance?meaning you might need to take more of the medication for the same pain relief ? Physical dependence?meaning you have symptoms of withdrawal when a medication is stopped ? Increased sensitivity to pain ? Constipation ? Nausea, vomiting, and dry mouth ? Sleepiness and dizziness ? Confusion ? Depression ? Low levels of testosterone that can result in lower sex drive, energy, and strength ? Itching and sweating RISKS ARE GREATER WITH: ? History of drug misuse, substance use disorder, or overdose ? Mental health conditions (such as depression or anxiety) ? Sleep apnea ? Older age (65 years and older) ? Avoid alcohol while taking prescription opioids. Also, unless specifically advised by your health care provider, medications to avoid include: ? Benzodiazepines (such as Xanax or Valium) ? Muscle relaxants (such as Soma or Flexeril) ? Hypnotics (such as Ambien or Lunesta) ? Other prescription opioids KNOW YOUR OPTIONS Talk to your health care provider about ways to manage your pain that don?t involve prescription opioids. Some of these options may actually work better and have fewer risks and side effects. Options may include: ? Pain relievers such as acetaminophen, ibuprofen, and naproxen ? Some medication that are also used for depression or seizures ? Physical therapy and exercise ? Cognitive behavioral therapy, a psychological, goal-directed approach, in which patients learn how to modify physical, behavioral, and emotional triggers of pain and stress. IF YOU ARE PRESCRIBED OPIOIDS FOR PAIN: ? Never take opioids in greater amounts or more often than prescribed. ? Follow up with your primary health care provider. o Work together to create a plan on how to manage your pain. o Talk about ways to help manage your pain that don?t involve prescription opioids. o Talk about any and all concerns and side effects. ? Help prevent misuse and abuse o Never sell or share prescription opioids. o Never use another person?s prescription opioids. ? Store prescription opioids in a secure place and out of reach of others (this may include visitors, children, friends, and family). ? Safely dispose of unused prescription opioids: Find your community drug take-back program or your pharmacy mail-back program, or flush them down the toilet, following guidance from the Food and Drug Administration (www.fda.gov/Drugs/Resource sForYou). ? Visit www.cdc.gov/drugoverdose to learn about the risks of opioids abuse and overdose. ? If you believe you may be struggling with addiction, tell your health neonatal critical care nurse and ask for guidance or call [facility]?S National Helpline at 5-436-282-WEXV. Source: Department of Health and Human Services/[place] f (more content not included)... Normal [facility] UA With Cult Reflexon 2023 Bacteria LM Ql (Urine sed) TRACE Normal Trace [facility] Comment on above: Performed By: #### 1 [id number] #### [facility] [address] [place] [address] Bilirubin Ql (U) Negative Normal Negative [facility] Comment on above: Performed By: #### 1 [id number] #### [facility] [address] [place] [address] Clarity (U) CLEAR Normal Clear [facility] Comment on above: Performed By: #### 1 [id number] #### [facility] [address] [place] [address] Color (U) YELLOW Normal Yellow [facility] Comment on above: Performed By: #### 1 [id number] #### [facility] [address] [place] [address] Epithelial cells.squamous LM.HPF (Urine sed) [#/Area] 0-2 Normal 0-2 [facility] Comment on above: Performed By: #### 1 [id number] #### [facility] [address] [place] [address] Glucose Test strip (U) [Mass/Vol] Negative Normal Negative [facility] Comment on above: Performed By: #### 1 [id number] #### [facility] [address] [place] [address] Hemoglobin Ql (U) TRACE Abnormal Negative [facility] Comment on above: Performed By: #### 1 [id number] #### [facility] [address] [place] [address] Ketones (U) [Mass/Vol] Negative Normal Negative [facility] Comment on above: Performed By: #### 1 [id number] #### [facility] [address] [place] [address] [place].plasma/Lithi um.RBC (Bld) [Mass ratio] 0-3 Normal 0-3 [facility] Comment on above: Performed By: #### 1 [id number] #### [facility] [address] [place] [address] Nitrite Ql (U) Negative Normal Negative [facility] Comment on above: Performed By: #### 1 [id number] #### [facility] [address] [place] [address] pH (U) 5.5 [pH] Invalid Interpretation Code 5.0-9.0 [facility] Comment on above: Performed By: #### 1 [id number] #### [facility] [address] [place] [address] Protein (U) [Mass/Vol] Negative Normal Negative [facility] Comment on above: Performed By: #### 1 [id number] #### [facility] [address] [place] [address] Specific gravity (U) [Rel density] >=1.030 Invalid Interpretation Code 1.005-1.030 [facility] Comment on above: Performed By: #### 1 [id number] #### [facility] [address] [place] [address] Type of Urine collection method Clean Catch Normal [facility] Comment on above: Performed By: #### 1 [id number] #### [facility] [address] [place] [address] Urobilinogen Qn (U) 0.2 {Court'U}/dL Normal 0.0-1.0 [facility] Comment on above: Performed By: #### 1 [id number] #### [facility] [address] [place] [address] WBC Auto Ql (U) Negative Normal Negative [facility] Comment on above: Performed By: #### 1 [id number] #### [facility] [address] [place] [address] WBC LM.HPF (Urine sed) [#/Area] 0-5 Normal 0-5 [facility] Comment on above: Performed By: #### 1 [id number] #### [facility] [address] [place] [address] URINALYSISOrdered By: Jayme Menjivar on 10-03-2023 Bacteria LM Ql (Urine sed) Trace /HPF Normal Trace/HPF [facility] UA Auto SS Bilirubin Ql (U) Negative (10/03/23 2:53 PM) Normal Negative [facility] UA Auto SS Clarity (U) Clear (10/03/23 2:53 PM) Normal Clear [facility] UA Auto SS Color (U) Yellow (10/03/23 2:53 PM) Normal Yellow [facility] UA Auto SS Epithelial cells.squamous LM.HPF (Urine sed) [#/Area] 0-2 /HPF Normal 0-2/HPF [facility] UA Auto SS Glucose Test strip (U) [Mass/Vol] Negative (10/03/23 2:53 PM) Normal Negative [facility] UA Auto SS Hemoglobin Ql (U) Trace *ABN* (10/03/23 2:53 PM) Invalid Interpretation Code Negative [facility] UA Auto SS Ketones (U) [Mass/Vol] Negative (10/03/23 2:53 PM) Normal Negative [facility] UA Auto SS [place].plasma/Lithi um.RBC (Bld) [Mass ratio] 0-3 /HPF Normal 0-3/HPF [facility] UA Auto SS Nitrite Ql (U) Negative (10/03/23 2:53 PM) Normal Negative [facility] UA Auto SS pH (U) 5.5 *NA* (10/03/23 2:53 PM) Invalid Interpretation Code 5.0 - 9.0 [facility] UA Auto SS Protein (U) [Mass/Vol] Negative (10/03/23 2:53 PM) Normal Negative [facility] UA Auto SS Specific gravity (U) [Rel density] >=1.030 *NA* (10/03/23 2:53 PM) Invalid Interpretation Code 1.005 - 1.030 [facility] Auto [place] UA Spec Desc Clean Catch (10/03/23 2:53 PM) Normal [facility]A Auto SS Urobilinogen Qn (U) 0.2632745 {Court'U}/dL Normal 0.0 - 1.0 EU/dL [facility] UA Auto SS WBC Auto Ql (U) Negative (10/03/23 2:53 PM) Normal Negative [facility] UA Auto SS WBC LM.HPF (Urine sed) [#/Area] 0-5 /HPF Normal 0-5/HPF [facility] UA Auto SS Consent for Treatmenton Consent for Treatment [id number] Normal [facility] Discharge Instructionson Discharge Instructions [id number] Normal [facility] ED Clinical Summaryon 2023 ED Clinical Summary (Inserted Image. Tammy ble to display) [place] [id number] ED Clinical Summary Person Information Name: JANA CABALLERO [place]aima [place] Age: 52 Years : 1970 Sex: Female Language: Syrian PCP: Rangel Reyez DO Marital Status: Phone: [phone] Visit Id: Visit Reason: Hip pain-swelling; Headache; HEADACHE, RT HIP PAIN Speciality: Acuity: 3 Enc Type: Emergency Med Service: Emergency Arrival: 10/02/2023 01:43:57 Discharge: 10/02/2023 02:37:07 LOS: 000 00:54 Checkin: 10/02/2023 01:43:57 Checkout: 10/02/2023 02:37:07 Dispo Type: Home (Routine DC) EVENTS: Event Name Event Status Request Date/Time Start Date/Time Complete Date/Time Arrive Complete 10/02/2023 01:43:57 10/02/2023 01:43:57 10/02/2023 01:43:57 Document Home Meds Request 10/02/2023 01:43:57 Triage Complete 10/02/2023 01:43:57 10/02/2023 01:51:30 10/02/2023 01:51:30 Dr Exam Complete 10/02/2023 01:46:04 10/02/2023 01:46:04 10/02/2023 01:46:04 Registration Complete 10/02/2023 01:46:04 10/02/2023 01:48:37 10/02/2023 01:48:37 Reg Complete Request 10/02/2023 01:48:37 Reg Bed Request Complete 10/02/2023 01:48:37 10/02/2023 01:48:37 10/02/2023 01:48:37 Bed Assign Complete 10/02/2023 01:53:07 10/02/2023 01:53:07 10/02/2023 01:53:07 RN Exam Complete 10/02/2023 01:53:07 10/02/2023 02:34:45 10/02/2023 02:34:45 Meds Admin Complete 10/02/2023 02:00:53 10/02/2023 02:04:26 X-Ray Complete 10/02/2023 02:00:53 10/02/2023 02:02:47 10/02/2023 02:18:30 Wet Read Request 10/02/2023 02:18:30 Discharge Complete 10/02/2023 02:29:39 10/02/2023 02:37:29 10/02/2023 02:37:29 Transfer Complete 10/02/2023 02:37:29 10/02/2023 02:37:29 10/02/2023 02:37:29 ADDRESS: [address] [place] [id number] PHYS DOC NOTES: MEDICAL INFORMATION: Prescriptions Given: Medications to Continue Taking That Have Changed [id number], [address] [place] [id number], [phone] START: naproxen (naproxen 500 mg Tab) 1 Tablets By Mouth 2 times a day for 7 Days. Refills: 0. Other Medications START: naproxen (Naprosyn 500 mg Tab) 1 Tablets By Mouth 2 times a day as needed for pain. Refills: 0. Medications to Continue with No Changes Other Medications albuterol (albuterol HFA 90 mcg/inh MDI) 2 Puffs Inhalation every 4 hours as needed for wheezing. Refills: 0. escitalopram (Lexapro 10 mg Tab) 1 Tablets By Mouth every day. Refills: 4. ferrous sulfate (ferrous sulfate 325 mg Tab) 1 Tablets By Mouth every day. ketorolac (ketorolac 10 mg Tab) 1 Tablets By Mouth every 6 hours as needed for pain. Refills: 0. meclizine (meclizine 25 mg Tab) 1 Tablets By Mouth 3 times a day as needed for dizziness. Refills: 0. meclizine (meclizine 25 mg Tab) 1 Tablets By Mouth 3 times a day as needed for dizziness. Refills: 0. multivitamin with minerals (One A Day Women's Complete) By Mouth every day. pantoprazole (Pantoprazole [address] Tab) 1 Tablets By Mouth every day. Refills: 4. PATIENT EDUCATION INFORMATION: Instructions: Sciatica Follow up: With: Address: When: Rangel Reyez [address] [place], [place] [id number] In 3 days DIAGNOSIS: Sciatica Normal [facility] ED Note-Physicianon 10-02-19 ED Note-Physician Basic Information Time Seen: Ralph Platt DO 10/02/2023 01:46 Chief Complaint (R) hip pain and headache above eyes for the past of days. Pain is worsening. No light or sound sensitivity. History of Present Illness HPI: Patient is a 52-year-old female who presents the ED for right hip and buttock pain as well as a headache. Patient states that she has been having pain that starts in her right buttock and goes down the back of her right leg for approximately 4 to 5 days. She states that it is aching in nature. She does state that around a week ago she excellently missed a chair will going to sit down and fell on her buttocks and is unsure if this may have aggravated it. She has been able to ambulate since then with only mild discomfort. She denies any numbness or weakness. She states that tonight she also has a very mild frontal headache and states that she has these often for which she usually manages it with Tylenol but did not have any with her tonight. ROS: Pertinent review of systems conducted and is negative except as noted above. Physical exam: General: nontoxic appearing and in no distress HEENT: Mucous membranes moist Neuro: awake and alert. Cranial nerves II through XII are intact. Gross motor sensation all 4 extremities are intact. Neck: supple, trachea midline Card: Heart regular rate and rhythm no murmur Resp: Lungs clear to auscultation no wheeze or rhonchi Abd: Soft and nondistended. No tenderness to palpation with no rebound or guarding. Right lower extremity: Range of motion the right hip is intact. No pain with internal or external rotation. No tenderness over bony prominences. Dorsalis pedis pulse 2+. Physical Exam Vitals & Measurements T: 36.5 ?C(Oral) HR: 69(Peripheral) RR: 16 BP: 142/89 SpO2: 96% HT: 170 cm WT: 91.7 kg BMI: 31.73 Medical Decision Making MEDICAL DECISION MAKING Number and Complexity of Problems Differential Diagnosis: [] [facility] Data External documents reviewed: N/A My EKG interpretation: Noted in chart if applicable My CT interpretation: N/A My X-ray interpretation: Noted in chart if applicable My Ultrasound interpretation: N/A Decision rules/scores evaluated: N/A Discussed with: N/A Treatment and Disposition ED Course: Patient is well-appearing in no distress. She has some right buttock and leg pain that is most consistent with sciatic pattern but is concerned that she did have a mild fall onto her buttocks several days preceding this and thinks that may have precipitated it. She is neurovascularly intact to my exam. She has no meningeal signs and states that her headache is very mild and was gradual in onset and normally is managed with Tylenol but she did not have any with her. Will give her a dose of IM Toradol for both of these things and obtain an x-ray. X-ray shows no acute fracture. I discussed my suspicion of sciatica with the patient. Will start on a course of oral anti-inflammatories and have her follow-up closely with her primary care physician. Shared decision making: As above Code status: N/A Assessment/Plan Sciatica (M54.30: Sciatica, unspecified side) Orders: ketorolac, 30 mg = 2 mL, Injection, IntraMuscular, Once, Stop date 10/02/23 2:00:00 EST, STAT, Start date 10/02/23 2:00:00 EST, 10/02/23 2:00:00 EST naproxen, 500 mg = 1 tab(s), Oral, BID, X 7 day(s), # 14 tab(s), Refills(s) 0, Pharmacy: [id number], 170, cm, 10/02/23 1:51:00 EST, Height/Length Dosing, 91.7, kg, 10/02/23 1:51:00 EST, Weight Dosing XR Hip 2-3 Views Right + Pelvis Medications Administered Given ketorolac 15 mg/mL Inj, 30 mg, IntraMuscular Disposition Plan Discharge Prescription List Prescriptions naproxen 500 mg Tab, 500 mg= 1 tab(s), Oral, BID Follow-up With When Contact Information Rangel Reyez In 3 days [address] [place] [address] Additional Instructions: Patient Education Sciatica Problem List/Past Medical History Ongoing Abdominal fullness Abdominal pain Allergic rhinitis Anemia Bronchitis Class 1 obesity with body mass index (BMI) of 32.0 to 32.9 in adult Discoloration of skin of toe Dizziness ESBL E. coli carrier Exposure to COVID-19 virus Flank pain Former smoker Frequency of urination Gastroesophageal reflux disease Hiatal hernia History of cervical cancer History of kidney stones Hydronephrosis with urinary obstruction due to ureteral calculus kidney stones Malignant tumor of cervix Mild recurrent major depression Nausea in adult Nocturia Other urethral stricture, female Screening for diabetes mellitus Screening for lipid disorders Smoker Historical Anemia due to unknown mechanism Cervical cancer Chemotherapy Hernia migraines Radiation Procedure/Surgical History Cystoscopy (03/07/2020), :LEEP, exam under anesthesia (10/06/2016), hernia repair (11/25/2015), incisional hernia repair (05/13/2015), (2004), Tubal ligation (2003), Cancer cervix screening - up (more content not included)... Normal [facility] Comment on above: Result Comment: Elec tronically Signed By: Ralph Platt DO\.br\Date and Time Signed: 10/02/23 02:29 EST ED Patient Education Noteon 10-02-2023 ED Patient Education Note Orthopedics Sciatica Sciatica is pain, numbness, weakness, or tingling along the path of the sciatic nerve. The sciatic nerve starts in the lower back and runs down the back of each leg. The nerve controls the muscles in the lower leg and in the back of the knee. It also provides feeling (sensation) to the back of the thigh, the lower leg, and the sole of the foot. Sciatica is a symptom of another medical condition that pinches or puts pressure on the sciatic nerve. Sciatica most often only affects one side of the body. Sciatica usually goes away on its own or with treatment. In some cases, sciatica may come back (recur). What are the causes? This condition is caused by pressure on the sciatic nerve or pinching of the nerve. This may be the result of: ? A disk in between the bones of the spine bulging out too far (herniated disk). ? Age-related changes in the spinal disks. ? A pain disorder that affects a muscle in the buttock. ? Extra bone growth near the sciatic nerve. ? A break (fracture) of the pelvis. ? . ? Tumor. This is rare. What increases the risk? The following factors may make you more likely to develop this condition: ? Playing sports that place pressure or stress on the spine. ? Having poor strength and flexibility. ? A history of back injury or surgery. ? Sitting for long periods of time. ? Doing activities that involve repetitive bending or lifting. ? Obesity. What are the signs or symptoms? Symptoms can vary from mild to very severe. They may include: ? Any of the following problems in the lower back, leg, hip, or buttock: ? Mild tingling, numbness, or dull aches. ? Burning sensations. ? Sharp pains. ? Numbness in the back of the calf or the sole of the foot. ? Leg weakness. ? Severe back pain that makes movement difficult. Symptoms may get worse when you cough, sneeze, or laugh, or when you sit or stand for long periods of time. How is this diagnosed? This condition may be diagnosed based on: ? Your symptoms and medical history. ? A physical exam. ? Blood tests. ? Imaging tests, such as: ? X-rays. ? An MRI. ? A CT scan. How is this treated? In many cases, this condition improves on its own without treatment. However, treatment may include: ? Reducing or modifying physical activity. ? Exercising, including strengthening and stretching. ? Icing and applying heat to the affected area. ? Medicines that help to: ? Relieve pain and swelling. ? Relax your muscles. ? Injections of medicines that help to relieve pain and inflammation (steroids) around the sciatic nerve. ? Surgery. Follow these instructions at home: Medicines ? Take gbes-uwb-iypissw and prescription medicines only as told by your health care provider. ? Ask your health care provider if the medicine prescribed to you requires you to avoid driving or using heavy machinery. Managing pain ? If directed, put ice on the affected area. To do this: ? Put ice in a plastic bag. ? Place a towel between your skin and the bag. ? Leave the ice on for 20 minutes, 2?3 times a day. ? If your skin turns bright red, remove the ice right away to prevent skin damage. The risk of skin damage is higher if you cannot feel pain, heat, or cold. ? If directed, apply heat to the affected area as often as told by your health care provider. Use the heat source that your health care provider recommends, such as a moist heat pack or a heating pad. ? Place a towel between your skin and the heat source. ? Leave the heat on for 20?30 minutes. ? If your skin turns bright red, remove the heat right away to prevent restrepo. The risk of restrepo is higher if you cannot feel pain, heat, or cold. Activity ? Return to your normal activities as told by your health care provider. Ask your health care provider what activities are safe for you. ? Avoid activities that make your symptoms worse. ? Take brief periods of rest throughout the day. ? When you rest for longer periods, mix in some mild activity or stretching between periods of rest. This will help to prevent stiffness and pain. ? Avoid sitting for long periods of time without moving. Get up and move around at least one time each hour. ? Exercise and stretch regularly as told by your health care provider. ? Do not lift anything that is heavier than 10 lb (4.5 kg) until your health care provider says that it is safe. When you do not have symptoms, you should still avoid heavy lifting, especially repetitive heavy lifting. ? When you lift objects, always use proper lifting technique, which includes: ? Bending your knees. ? Keeping the load close to your body. ? Avoiding twisting. General instructions ? Maintain a healthy weight. Excess weight puts extra stress on your back. ? Wear supportive, comfortable shoes. Avoid w (more content not included)... Normal [facility] ED Patient Summaryon 024 ED Patient Summary (Inserted Image. Tammy ble to display) [place] [id number] Patient Discharge Instructions Person Information Name: JANA CABALLERO Age: 52 Years Arrival Date: 10/02/2023 01:43:57 Discharge Diagnosis: Sciatica Primary Care Physician: Rangel Reyez DO Provider Information Primary Provider: Ralph Platt DO Advanced Asset Management Analyst:Levy The exam and treatment you received in the Emergency Department were for an urgent problem and are not intended as complete care. It is important that you follow up with a doctor, nurse practitioner, or physician?s accounting administrative assistant for ongoing care. If your symptoms become worse or you do not improve as expected and you are unable to reach your usual health care provider, you should return to the Emergency Department. We are available 24 hours a day. JANA CABALLERO has been given the following list of patient education materials, prescriptions and follow-up instructions: Follow-up Instructions: With: Address: When: Rangel Reyez [address] [place], [place] [id number] In 3 days In the event that this physician does not participate in your insurance network, please consult with your insurance company to find a nearby participating provider. Patient Education Materials: Sciatica A MESSAGE TO ALL PATIENTS REGARDING OPIOIDS PRESCRIPTION OPIOIDS: WHAT YOU NEED TO KNOW Prescription opioids can be used to help relieve jdnbqirb-yx-bucvlv pain and are often prescribed following a surgery or injury, or for certain health conditions. These medications can be an important part of the treatment but also come with serious risks. It is important to work with your healthcare provider to make sure you are getting the safest, most effective care. WHAT ARE THE RISKS AND SIDE EFFECTS OF OPIOID USE? Prescription opioids carry serious risks of addiction and overdose, especially with prolonged use. An opioid overdose, often marked by slowed breathing, can cause sudden . The use of prescription opioids can have a number of side effects as well, even when taken as directed: ? Tolerance?meaning you might need to take more of the medication for the same pain relief ? Physical dependence?meaning you have symptoms of withdrawal when a medication is stopped ? Increased sensitivity to pain ? Constipation ? Nausea, vomiting, and dry mouth ? Sleepiness and dizziness ? Confusion ? Depression ? Low levels of testosterone that can result in lower sex drive, energy, and strength ? Itching and sweating RISKS ARE GREATER WITH: ? History of drug misuse, substance use disorder, or overdose ? Mental health conditions (such as depression or anxiety) ? Sleep apnea ? Older age (65 years and older) ? Avoid alcohol while taking prescription opioids. Also, unless specifically advised by your health care provider, medications to avoid include: ? Benzodiazepines (such as Xanax or Valium) ? Muscle relaxants (such as Soma or Flexeril) ? Hypnotics (such as Ambien or Lunesta) ? Other prescription opioids KNOW YOUR OPTIONS Talk to your health care provider about ways to manage your pain that don?t involve prescription opioids. Some of these options may actually work better and have fewer risks and side effects. Options may include: ? Pain relievers such as acetaminophen, ibuprofen, and naproxen ? Some medication that are also used for depression or seizures ? Physical therapy and exercise ? Cognitive behavioral therapy, a psychological, goal-directed approach, in which patients learn how to modify physical, behavioral, and emotional triggers of pain and stress. IF YOU ARE PRESCRIBED OPIOIDS FOR PAIN: ? Never take opioids in greater amounts or more often than prescribed. ? Follow up with your primary health care provider. o Work together to create a plan on how to manage your pain. o Talk about ways to help manage your pain that don?t involve prescription opioids. o Talk about any and all concerns and side effects. ? Help prevent misuse and abuse o Never sell or share prescription opioids. o Never use another person?s prescription opioids. ? Store prescription opioids in a secure place and out of reach of others (this may include visitors, children, friends, and family). ? Safely dispose of unused prescription opioids: Find your community drug take-back program or your pharmacy mail-back program, or flush them down the toilet, following guidance from the Food and Drug Administration (www.fda.gov/Drugs/Resource sForYou). ? Visit www.cdc.gov/drugoverdose to learn about the risks of opioids abuse and overdose. ? If you believe you may be struggling with addiction, tell your health neonatal critical care nurse and ask for guidance or call [facility]?S National Helpline at 9-342-327-CGJT. y Source: US Department of Health and Human Services/Center for Disease Control & Preventio (more content not included)... Normal [facility] XR Hip 2-3 Views Right + Pel vison 10-02-2023 XR Hip 2-3 Views Right + Pelvis Exam Date/Time: 10/02/2023 02:18 EST Reason for Exam: Pain, Traumatic Report IMPRESSION: NO ACUTE OSSEOUS ABNORMALITY. EXAMINATION: XR Hip 2-3 Views Right + Pelvis HISTORY: Hip pain COMPARISONS: None available TECHNIQUE: Frontal and lateral views of the hip. FINDINGS: No acute proximal femur fracture. No hip dislocation. Mild degenerative changes of both hips. Degenerative changes of the lower lumbar spine. Visualized bones of the pelvis are within normal limits. Soft tissues are within normal limits. Ordering Provider: Ralph Platt FINAL REPORT Dictated: 10/02/2023 8:12 am Rangel Rico DO Signed (Electronic Signature): 10/02/2023 8:12 am Signed by: Rangel Rico DO Transcribed by: JG Technologist: PAM Technical Comments Radiation Dose: Ka,r in mGy = na DAP = na Normal [facility] CHEMISTRYOrdered By: SYSTEM SYSTEM on 01-06-2023 Anion gap [Moles/Vol] 13 mmol/L Normal 6 - 16 mEq/L [facility] Remisol Calcium [Mass/Vol] 8.9 mg/dL Normal 8.9 - 11. 1 mg/dL [facility] Chloride [Moles/Vol] 104 mmol/L Normal 101 - 1 11 mmol/L [facility] CO2 [Moles/Vol] 24 mmol/L Normal 21 - 31 mmol/L [facility] Creatinine [Mass/Vol] 0.6 mg/dL Normal 0.5 - 1.3 mg/dL [facility] Remisol GFR/1.73 sq M.predicted among blacks MDRD (S/P/Bld) [Vol rate/Area] mL/min/1.73 m2 Normal >=59mL/min/ 1.73 m2 [facility] Chem S GFR/1.73 sq M.predicted among non-blacks MDRD (S/P/Bld) [Vol rate/Area] mL/min/1.73 m2 Normal >=59mL/min/ 1.73 m2 [facility] Chem S Glucose [Mass/Vol] 97 mg/dL Normal 55 - 199 mg/dL [facility] Rem[facility] Potassium [Moles/Vol] 4.0 mmol/L Normal 3.5 - 5.3 mmol/L [facility] Sodium [Moles/Vol] 137 mmol/L Normal 135 - 145 mmol/L [facility] Troponin I.cardiac [Mass/Vol] 5.00 pg/mL Low 10.10 - 27.10 pg/mL [facility] Urea nitrogen [Mass/Vol] 12 mg/dL Normal 5 - 21 mg/dL [facility] Urea nitrogen/Creatinine [Mass ratio] 20 mg/mg Normal 10 - 20 [facility] Remisol COAGULATIONOrdered By: Michelle a Johnny on 01-06-2023 aPTT Coag (PPP) [Time] 34.4 s Normal 25.1 - 36.5 second(s) [facility] Auto Coag INR Coag (PPP) [Relative time] 1.1 {INR} Invalid Interpretation Code [facility] Auto Coag PT Coag (PPP) [Time] 12.2 s Normal 9.4 - 1 2.5 second(s) [facility] Auto Coag HEMATOLOGYOrdered By: SYSTEM SYSTEM on 01-06-2023 Basophils/100 WBC (Bld) 2.6 % High 0.0 - 2.0 % [facility] HemeAutoSS Basophils/Leukocytes Auto (Bld) [Pure # fraction] 0.1 E9/L Normal 0.0 - 0.2 E9/L [facility] HemeAutoSS Eosinophils/100 WBC (Bld) 8.7 % High 0.0 - 8.0 % [facility] HemeAutoSS Eosinophils/Leukocyt es Auto (Bld) [Pure # fraction] 0.3 E9/L Normal 0.0 - 0.5 E9/L [facility] HemeAutoSS Lymphocytes/100 WBC (Bld) 34.6 % Normal 14.0 - 50.0 % [facility] HemeAutoSS Lymphocytes/Leukocyt es Auto (Bld) [Pure # fraction] 1.3 E9/L Normal 1.0 - 4.0 E9/L [facility] HemeAutoSS Monocytes/100 WBC (Bld) 6.7 % Normal 4.0 - 14.0 % [facility] HemeAutoSS Monocytes/Leukocytes Auto (Bld) [Pure # fraction] 0.3 E9/L Normal 0.2 - 1.0 E9/L [facility] HemeAutoSS Neutrophils/100 WBC (Bld) 47.4 % Normal 36.0 - 75.0 % [facility] HemeAutoSS Neutrophils/Leukocyt es Auto (Bld) [Pure # fraction] 1.8 E9/L Low 2.0 - 7.5 E9/L [facility] HemeAutoSS HEMATOLOGYOrdered By: Mandi Carolina on 01-06-2023 Erythrocyte distribution width (RBC) [Ratio] 14.6 % High 10.9 - 14.2 % [facility] HemeAutoSS Hematocrit (Bld) [Volume fraction] 36.8 % Normal 34.0 - 46.0 % [facility] HemeAutoSS Hemoglobin (Bld) [Mass/Vol] 12.0 g/dL Normal 12.0 - 16.0 gm/dL [facility] HemeAutoSS MCH (RBC) [Entitic mass] 27.6 pg Normal 27.0 - 34.0 pg [facility] HemeAutoSS MCHC (RBC) [Mass/Vol] 32.7 g/dL Normal 31.4 - 36.0 gm/dL [facility] HemeAutoSS MCV (RBC) [Entitic vol] 84.2 fL Normal 80.0 - 100.0 fL [facility] HemeAutoSS Platelet mean volume (Bld) [Entitic vol] 8.6 fL Normal 6.4 - 10.8 fL [facility] HemeAutoSS Platelets (Bld) [#/Vol] 213.0 E9/L Normal 150.0 - 500.0 E9/L [facility] HemeAutoSS RBC (Bld) [#/Vol] 4.4 E12/L Normal 4.3 - 5.9 E12/L [facility] HemeAutoSS WBC corrected for nucl RBC Auto (Bld) [#/Vol] 3.8 E9/L Low 4.0 - 11.0 E9/L [facility] HemeAutoSS SURGICAL PATHOLOGYon 023 Case Report Surgical Pathology R eport Case: [id number] Authorizing Provider: Denis Viera MD Collected: 12/02/2022 12:54 PM Ordering Location: Gynecology Received: 12/02/2022 04:47 PM Pathologist: Arnie Sterling MD Specimen: ENDOCERVIX CURETTINGS [facility] Clinical History cervical cancer [facility] FINAL DIAGNOSIS Endocervix, curettin gs: - Benign squamous epithelium. ACV/rw 12/03/2022 [facility] Gross Description A. ENDOCERVIX CURETT INGS Received in formalin are multiple garces-white, soft feathery segments of tissue aggregating to 0.5 x 0.3 x 0.1 cm. Totally submitted in one cassette. Gross examination performed at [facility], [facility] [place] [address] JT 12/03/2022 12:24 AM [facility] Performing Lab Diagnostic interpret ation performed at [facility], [address] [place] [address] CLIA# [id number] [employer] Executive Director: Roe Hughes M.D. [facility] MICRO OTHER TESTSOrdered By: Jerica Guerra on 11-23-2022 S. pyogenes Ag IA.rapid Ql (Throat) Negative (11/23/22 9:27 PM) Normal Negative [facility] Man Sero CNPRoselyn 11-10-2022 CNPN Telephone (NCCAP) JANA CABALLERO ([id number]) 1970 F Date Time Provider Department 11/10/22 DENIS VIERA During your visit today, we recorded the following information about you: Lindsay Wood Sec 11/10/2022 9:28 AM Signed Called patient mutiple drea to schedule her phone is not working currently. MD Nakul Shaverusky Clerical [place] I would like to talk to this patient about her pap results - I sent her a Medxnote message about the results - but can someone see if she is availble tomorrow for a telephone visit so that I can talk to her about setting up a colposcopy at the [facility]? Thanks. Denis Wood Sec 11/10/2022 1:11 PM Signed Called sibling also for appointment no answer either Aimee Del Real Pss 11/15/2022 8:38 AM Signed Lindsay Rider transferred call to me to schedule patient phone call visit with Dr. Viera, patient was very upset and adamant about wanting to know right now what was wrong and why she needed appointment. She asked to speak with nurse. I have emailed Keke More and CC Dr Viera regarding calling patient sometime today. Aimee Del Real Pss Allergies As of Date: 11/10/2022 (No Known Allergies) Date Reviewed: 11/03/2022 Reviewed by: Sofía Allen - Fully Assessed Reason for Visit: Appointment Confirmation [[id number]] Prescriptions as of 11/15/2022 - meclizine (ANTIVERT) 25 mg tab take 1 tablet by mouth three times a day if needed for dizziness - escitalopram oxalate (LEXAPRO) 10 mg tablet Take 1 tablet by mouth once daily. - prochlorperazine (COMPAZINE) 10 mg tablet TAKE 1 TABLET BY MOUTH EVERY 6 HOURS NEEDED - amitriptyline (ELAVIL) 50 mg tablet Take 50 mg by mouth daily at bedtime. - oxyCODONE-acetaminophen (PERCOCET) 5-325 mg tablet Take 1 tablet by mouth every 6 hours as needed for Pain. - phenazopyridine (PYRIDIUM, GERIDIUM) 100 mg tablet Take 1 tablet by mouth three times daily as needed. - Loperamide HCl (ANTI-DIARRHEA) 2 mg tab Take 1 tablet by mouth as needed. - potassium chloride (K-TAB) 10 mEq tablet Take 1 tablet by mouth once daily. - pantoprazole DR (PROTONIX) 40 mg tablet Take 1 tablet by mouth once daily. - ferrous sulfate 325 mg (65 mg iron) EC tablet Take 1 tablet by mouth once daily. - diphenoxylate-atropine (LOMOTIL) 2.5-0.025 mg per tablet Take 2 tablets by mouth every 6 hours as needed for Diarrhea. - loperamide (IMODIUM) 2 mg cap(s) Take 1 capsule by mouth four times daily as needed. - ondansetron (ZOFRAN, HYDROCHLORIDE,) 8 mg tablet Take 1 tablet by mouth every 8 hours as needed for Nausea/Vomiting. - multivitamin tablet Take 1 tablet by mouth once daily. - oxybutynin ER (DITROPAN XL) 10 mg 24 hr tablet Take 10 mg by mouth once daily. - ranitidine (ZANTAC) 150 mg tablet Take 150 mg by mouth twice daily. Problem List As Of Date 11/10/2022 Noted Resolved Gastroesophageal reflux disease without esophag*11/02/2016 Acute posthemorrhagic anemia [D62] 11/02/2016 Cancer of overlapping sites of cervix uteri (HC*11/16/2016 Diarrhea [R19.7] 01/10/2017 Asthma with chronic obstructive pulmonary disea*01/10/2017 Encounter Status:Closed by LINDSAY ANDERSON [facility] JANA CABALLERO ([id number]) 1970 F Date Time Provider Department 11/04/22 DENIS VIERA [facility] During your visit today, we recorded the following information about you: Kim Hoskins Sec 11/04/2022 8:40 AM Sharita Bates stopped at check out to schedule a yearly follow up. At this time you do not have a template to schedule that far out. Also, I did not see your orders for a year follow up. Thank you Kim Hoskins Sec 11/04/2022 3:02 PM Signed The last date for your Debo template is 10-12-23. Kim Hoskins Sec 11/08/2022 1:30 PM Signed Patient has been scheduled for 11-09-23. Mailed appointment reminder as she requested and she also has mychart. Allergies As of Date: 11/04/2022 (No Known Allergies) Date Reviewed: 11/03/2022 Reviewed by: Sofía Allen - Fully Assessed Reason for Visit: Orders [681] Prescriptions as of 11/08/2022 - meclizine (ANTIVERT) 25 mg tab take 1 tablet by mouth three times a day if needed for dizziness - escitalopram oxalate (LEXAPRO) 10 mg tablet Take 1 tablet by mouth once daily. - prochlorperazine (COMPAZINE) 10 mg tablet TAKE 1 TABLET BY MOUTH EVERY 6 HOURS NEEDED - amitriptyline (ELAVIL) 50 mg tablet Take 50 mg by mouth daily at bedtime. - oxyCODONE-acetaminophen (PERCOCET) 5-325 mg tablet Take 1 tablet by mouth every 6 hours as needed for Pain. - phenazopyridine (PYRIDIUM, GERIDIUM) 100 mg tablet Take 1 tablet by mouth three times daily as needed. - Loperamide HCl (ANTI-DIARRHEA) 2 mg tab Take 1 tablet by mouth as needed. - potassium chloride (K-TAB) 10 mEq tablet Take 1 tablet by mouth once daily. - pantoprazole DR (PROTONIX) 40 mg tablet Take 1 tablet by mouth once daily. - ferrous sulfate 325 mg (65 mg iron) EC tablet Take 1 tablet by mouth once daily. - diphenoxylate-atropine (LOMOTIL) 2.5-0.025 mg per tablet Take 2 tablets by mouth every 6 hours as needed for Diarrhea. - loperamide (IMODIUM) 2 mg cap(s) Take 1 capsule by mouth four times daily as needed. - ondansetron (ZOFRAN, HYDROCHLORIDE,) 8 mg tablet Take 1 tablet by mouth every 8 hours as needed for Nausea/Vomiting. - multivitamin tablet Take 1 tablet by mouth once daily. - oxybutynin ER (DITROPAN XL) 10 mg 24 hr tablet Take 10 mg by mouth once daily. - ranitidine (ZANTAC) 150 mg tablet Take 150 mg by mouth twice daily. Problem List As Of Date 11/04/2022 Noted Resolved Gastroesophageal reflux disease without esophag*11/02/2016 Acute posthemorrhagic anemia [D62] 11/02/2016 Cancer of overlapping sites of cervix uteri (HC*11/16/2016 Diarrhea [R19.7] 01/10/2017 Asthma with chronic obstructive pulmonary disea*01/10/2017 Encounter Status:Closed by KIM HOLLEY on 11/08/22 [facility]SPon 11-03-2022 [facility]OVSP Visit (SP) Office (Denise HAN) JANA CABALLERO ([id number]) 1970 F Date Time Provider Department 11/03/22 10:00 AM DENIS VIERA During your visit today, we recorded the following information about you: Temperature Pulse Respiration Blood pressure 97.9 degrees 61/minute 16/minute 142/75 Weight 88.4 kg Denis Viera MD 11/03/2022 9:16 PM Signed DATE OF SERVICE: 11/03/2022 CHIEF COMPLAINT: Patient presents for cervical cancer follow up, previous patient of Dr. Valdez (Has not been seen since 2019) DIAGNOSIS: Cervical cancer stage IB1 with pelvic lymph nodes positive, status post chemoradiation HISTORY TO DATE: 1) 10/21/2016: Ms. Caballero is a 52 year old female with a history of back pain and intermittent post coital bleeding for 2 years. She underwent an exam with her PCP and a pap smear was collected. 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 Joshi) for a LEEP. 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 10/21/2016: Patient was seen for a surgical consultation. PET/CT was obtained showing FDG avid bilateral pelvic lymph nodes. Surgery with debulking of pelvic lymph nodes and diagnostic paraaortic lymphadenectomy was recommended 3) 11/03/2016: Surgery- Robotic bilateral pelvic lymphadenectomy, bilateral paraaortic lymphadenectomy, left ovarian transposition. surgical findings: Enlarged bilateral external iliac lymph nodes Frozen section right external iliac lymph node consistent with metastatic squamous cell carcinoma Pathology: 1. Right pelvic lymph node, excision (A) - One lymph node, positive for involvement by squamous cell carcinoma (1/), 2 cm in greatest dimension, with extranodal extension 2. Right pelvic lymph nodes, lymphadenectomy (B) - Benign fibroadipose tissue; lymphoid tissue is not present. 3. Right para-aortic lymph nodes, lymphadenectomy (C) - Three lymph nodes, negative for malignancy (0/3). 4. Left para-aortic lymph nodes, lymphadenectomy (D) - Two lymph nodes, negative for malignancy (0/2). 5. Left pelvic lymph nodes, lymphadenectomy (E) - Two lymph nodes, positive for involvement by squamous cell carcinoma (2/2), 1.6 cm in greatest dimension. 4) 12/06/2016- 01/07/2017: ([facility]- Dr. Akbar and Dr. Moses)- Treatment with weekly cisplatin at 40mg/m2. External beam radiation:Pelvis: 4,500cGy in 25 fractions, 4 Tejada, 3D Conformal,18 MV from Brachytherapy 01/11/17- 01/28/17 - 3000 cGy in 5 fx of 600 cGy/fx were delivered with Ir- 192 HDR brachytherapy prescribed to point A. 5) 04/29/2017: PET/CT post treatment: Interval resolution of previously seen focal uterine hypermetabolism in the previously seen bilateral focal adnexal hypermetabolism. No FDG avid neoplastic process. 6) Pap 08/17/2019 : HGSIL: patient was contacted to schedule biopsy and was lost to follow up until 02/2020. 7) Last ECC and cervical biopsy completed in 02/2020- benign. CT follow up in 03/16/2021 demonstrated no metastatic disease. Last office visit: 03/24/2020 PAST MEDICAL HISTORY Diagnosis Date Anemia Cervical cancer (HCC) GERD (gastroesophageal reflux disease) PAST SURGICAL HISTORY Procedure Laterality Date ADENOIDECTOMY PRIMARY Adenoidectomy ASSIST ONLY HERNIA REPAIR HX 2016 x2 LEEP PROCEDURE (CLINICAL FIELD SPECIALIST DEPT)_*FL 09/2016 MYRINGOTOMY W/ TUBES HX Bilateral TONSILLECTOMY PRIMARY/SECONDARY Tonsillectomy TUBAL LIGATION HX RECENT PATHOLOGY 03/24/2020 FINAL DIAGNOSIS 1. Endocervix, curettage (A) - Squamous epithelium with no significant pathologic abnormality. - No endocervical epithelium is present for evaluation. 2. Cervix, 12 o'clock, biopsy (B) - Squamous mucosa with no significant pathologic abnormality RECENT IMAGIN02/25/2021 CT A/P IMPRESSION: No metastatic disease in the abdomen and pelvis. Right renal calculi. 10 x 7.6 x 5.7 cm subcapsular right perinephric fluid collection with compression of underlying parenchyma, new since 2017 and and may represent liquefying hematoma or urinoma, (e.g. if there has been renal intervention). PET/CT - 04/29/2017: 1. NECK: No FDG avid neoplastic process. No hypermetabolic mass, adenopathy, or fluid collection. 2. CHEST: No FDG avid neoplastic process. No hypermetabolic mass, adenopathy, or fluid collection. 3. ABDOMEN/PELVIS: Interval resolution of previously seen focal uterine hypermetabolism in the previously seen bilateral focal adnexal hypermetabolism. No FDG avid neoplastic process. No hypermetabolic mass, adenopathy, or fluid collection. 4. EXTREMITIES/SKELETON: No FDG avid osseous process. MRI PELVIS- 01/05/2017: outside facility Impression: 3.2cm probable right iliac postoperative seroma. A few small pelvic ly (more content not included)... Normal [facility] HPV W/GENOTYPE THIN PREPon 0 11-03-2022 HPV 16 Ag Ql (Unsp spec) Negative Normal Negative for HPV DNA high risk type 16 by PCR [facility] Comment on above: Order Comment: Speci men Type: FLUID SPECIMEN Ordering Facility: [facility] Address: [address] [id number] Performed By: #### H PVHRT #### [facility] CLIA [id number] [address] [id number] [address] [place] HPV 18 Ag Ql (Unsp spec) Negative Normal Negative for HPV DNA high risk type 18 by PCR [facility] Comment on above: Order Comment: Speci men Type: FLUID SPECIMEN Ordering Facility: [facility] Address: [address] [place] [address] Performed By: #### H PVHRT #### [facility] CLIA [id number] [address] [place] [address] [place] HPV 31+33+35+39+45+51+52 +56+58+59+66+68 DNA JA+probe Ql (Cvx) Positive for one or more of the following HPV DNA high risk types:31,33,35,39,45,51,52, 56,58,59,66,68 by PCR Abnormal Negative for HPV DNA high risk types: 31,33,35,39 ,45,51,52,5 6,58,59,66, 68 by PCR. [facility] Comment on above: Order Comment: Speci men Type: FLUID SPECIMEN Ordering Facility: [facility] Address: [address] [place] [address] Performed By: #### H PVHRT #### [facility] CLIA [id number] [address] [place] [address] [place] PAP FLUID CERVICAL SCREENING on 11-03-2022 CASE REPORT Normal [facility] Comment on above: Order Comment: Speci men Type: FLUID SPECIMEN Ordering Facility: [facility] Address: [address] [place] [address] Result Comment: Gyne cologic Cytology Report Case: [id number] Authorizing Provider: eDnis Viera MD Collected: 11/03/2022 11:14 AM Ordering Location: Gy[facility]cology Oncology Received: 11/03/2022 11:54 AM First Screen: Mellissa Andersen, CT, ASCP Rescreen: Regla Salgado CT, ASCP Specimen: Pap, Bar Captain, Screening, CERVICAL SCREENING FLUID Performed By: #### L [id number] #### [facility] CLIA [id number] [address] [place] CLINICAL HISTORY HIST MALIGNANCY - DE SCRIBE cervical cancer Normal [facility] Comment on above: Order Comment: Speci men Type: FLUID SPECIMEN Ordering Facility: [facility] Address: [address] [place] [address] Performed By: #### L [id number] #### [facility] CLIA [id number] [address] [place] [address] [place] CYTOLOGY INTERPRETATION PAP Normal [facility] Comment on above: Order Comment: Speci men Type: FLUID SPECIMEN Ordering Facility: [facility] Address: [address] [place] [address] Result Comment: Nega tive for Intraepithelial lesion or malignancy. Performed By: #### L [id number] #### [facility] CLIA [id number] [address] [place] [address] [place] CYTOLOGY PAP OTHER INT Atrophic specimen Normal [facility] Comment on above: Order Comment: Speci men Type: FLUID SPECIMEN Ordering Facility: [facility] Address: [address] [place] [address] Performed By: #### L [id number] #### [facility] CLIA [id number] [facility] [address] [place] FINAL DIAGNOSIS Normal [facility] Comment on above: Order Comment: Speci men Type: FLUID SPECIMEN Ordering Facility: [facility] Address: [address] [place], [place] [id number] Result Comment: A - CERVICAL SCREENING FLUID Satisfactory for interpretation, Limited cellularity Negative for Intraepithelial lesion or malignancy. Atrophic specimen Performed By: #### L [id number] #### [facility] CLIA [id number] [address] [place] [address] [place] FINAL PERFORMING LAB Normal [facility] Comment on above: Order Comment: Speci men Type: FLUID SPECIMEN Ordering Facility: [facility] Address: [address] [place] [address] Result Comment: Tech nical component, timber setter screening performed at [facility], [address] [place] [address] CLIA# [id number] Diagnostic interpretation performed at [facility], [address] [place] [address] CLIA# [id number] [employer] Executive Director: Roe Hughes M.D. Performed By: #### L [id number] #### [facility] CLIA [id number] [address] [place] [address] [place] HPV REQUESTED? Yes, automatic HPV p atients over 30 Normal [facility] Comment on above: Order Comment: Speci men Type: FLUID SPECIMEN Ordering Facility: [facility] Address: [address] [place] [address] Performed By: #### L [id number] #### [facility] CLIA [id number] [address] [place] [address] [place] LMP Postmenopausal Normal [facility] Comment on above: Order Comment: Speci men Type: FLUID SPECIMEN Ordering Facility: [facility] Address: [address] [place] [address] Performed By: #### L [id number] #### [facility] CLIA [id number] [address] [place] [address] [place] PAP DISCLAIMER COMMENT The Pap Smear is a screening test for cervical cancer. False negative results occur with all screening tests, emphasizing the need for rescreening at recommended intervals, and clinical correlation. Normal [facility] Comment on above: Order Comment: Speci men Type: FLUID SPECIMEN Ordering Facility: [facility] Address: [address] [place], [place] [address] Performed By: #### L [id number] #### [facility] CLIA [id number] [address] STATES [facility] PAP BIOMEDICAL EQUIPMENT SUPPORT SPECIALIST COMMENT This specimen has be en analyzed by the ThinPrep Imaging System, an automated imaging and review system, which assists the laboratory in evaluating cells on ThinPrep Pap tests. Following automated imaging, selected tejada from every slide are reviewed by a timber setter. Normal [facility] Comment on above: Order Comment: Speci men Type: FLUID SPECIMEN Ordering Facility: [facility] Address: [address] [place] [address] Performed By: #### L [id number] #### [facility] CLIA [id number] [address] [place] [address] MICRO OTHER TESTSOrdered By: Gilberto Carolina on 06-02-2022 Rapid COV Int NEG Ctl [place] (06/02/22 9:58 AM) Normal [facility] Sero Rapid COV Int POS Ctl [place] (06/02/22 9:58 AM) Normal [facility] Sero S. pyogenes Ag IA.rapid Ql (Throat) Negative (06/02/22 9:58 AM) Normal Negative [facility] Sero SARS-CoV+SARS-CoV-2 (COVID-19) Ag IA.rapid Ql (Resp) Not Detected (06/02/22 9:58 AM) Normal Not Detected [facility] Sero Cult,Urineon 01-10-2018 Cult,Urine Specimen Description .CLEAN CATCH URINESpecial Requests NOT REPORTEDCulture ESCHERICHIA COLI >[id number] CFU/ML THIS ORGANISM IS AN EXTENDED-SPECTRUM BETA-LACTAMASE PHYSICIAN CREDENTIALING SPECIALIST AND RESISTANCE TO THERAPY WITH PENICILLINS, CEPHALOSPORINS AND AZTREONAM IS EXPECTED. THESE ORGANISMS GENERALLY REMAIN SUSCEPTIBLE TO CARBAPENEMS. CONSIDER ID CONSULTATION. Report Status FINAL 01/10/2018SUSCEPTIBILITYOrg anism ECMethod MICAmikacin NOT REPORTEDAmpicillin >=32 RESISTANTAmpicillin/Sulbact am NOT REPORTEDAztreonam 16 RESISTANTCefazolin >=64 RESISTANT Cefazolin sensitivity results can be used to predict the effectiveness of oral cephalosporins (eg. Cephalexin) in uncomplicated Urinary Tract Infections due to E. coli, K. pneumoniae, and P. mirabilis Cefepime 2 RESISTANTCeftriaxone >=64 RESISTANTCiprofloxacin <=0.25 SUSCEPTIBLEErtapenem NOT REPORTEDESBL POSITIVEGentamicin <=1 SUSCEPTIBLEMeropenem <=0.25 SUSCEPTIBLENitrofurantoin 64 INTERMEDIATETigecycline NOT REPORTEDTobramycin <=1 SUSCEPTIBLETrimethoprim/Sul fa >=320 RESISTANTPiperacillin/Tazob actam <=4 SUSCEPTIBLE Normal [facility] Comment on above: Performed By: #### U RC ####[address] [address] Basic Metabolic Profon 01-09 (cont.) Normal [facility] Comment on above: Result Comment: Aver age GFR for 40-49 years old: 99 mL/min/1.73sq mChronic Kidney Disease: <60 mL/min/1.73sq mKidney failure: <15 mL/min/1.73sq meGFR calculated using average adult body mass. Additional eGFR calculator available at:http://[email or web address]/multiple_crcl_2012.htmJessica [address] [place] [address] Performed By: #### C BC, HCG, BMP ####[facility] [address] [place] [address] Anion gap 11 mmol/L Normal 9-17 [facility] Comment on above: Performed By: #### C BC, HCG, BMP ####[facility] BioscienceYcfxumkuwarv[address] [place] [address] Calcium 8.4 mg/dL Low 8.6-10.4 [facility] Comment on above: Performed By: #### C BC, HCG, BMP ####[facility] BioscienceLzfcgwitzlqb[address] [place] [address] Chloride 107 mmol/L Normal 98-107 [facility] Comment on above: Performed By: #### C BC, HCG, BMP ####[facility] BioscienceZybtznkubrtw[address] [place] [address] CO2 24 mmol/L Normal 20-31 [facility] Comment on above: Performed By: #### C BC, HCG, BMP ####[facility] [place] [address] Creatinine 0.48 mg/dL Low 0.50-0.90 [facility] Comment on above: Performed By: #### C BC, HCG, BMP ####[address] [address] eGFR (non-black) mL/min/{1.73_m2} Normal >60 [facility] Comment on above: Performed By: #### C BC, HCG, BMP ####[address] [address] Glucose mass conc 100 mg/dL High 70-99 [facility] Comment on above: Performed By: #### C BC, HCG, BMP ####[address] [address] Potassium molar conc 3.9 mmol/L Normal 3.7-5.3 [facility] Comment on above: Performed By: #### C BC, HCG, BMP ####[address] [address] Sodium 142 mmol/L Normal 135-144 [facility] Comment on above: Performed By: #### C BC, HCG, BMP ####[address] [place] [address] Urea nitrogen 14 mg/dL Normal 6-20 [facility] Comment on above: Performed By: #### C BC, HCG, BMP ####[address] [place] [address] BUN/CRE Ratio NOT REPORTED Normal 9-20 [facility] Comment on above: Performed By: #### C BC, HCG, BMP ####[address] [address] Staging: NOT REPORTED Normal [facility] Comment on above: Performed By: #### C BC, HCG, BMP ####[address] [address] CBCon 01-09-2018 Erythrocyte distribution width Auto Ratio (RBC) 14.1 % Normal 11.8-14.4 [facility] Comment on above: Performed By: #### C BC, HCG, BMP ####[address] [address] Erythrocytes (RBC) 0.0 per 100 WBC Normal 0.0 M [facility] Comment on above: Result Comment: [address] [address] Performed By: #### C BC, HCG, BMP ####[address] [address] Erythrocytes (RBC) 3.64 10*6/uL Low 3.95-5.11 [facility] Comment on above: Performed By: #### C BC, HCG, BMP ####[address] [address] Hematocrit (HCT) 33.1 % Low 36.3-47.1 [facility] Comment on above: Performed By: #### C BC, HCG, BMP ####[address] [address] Hemoglobin mass conc (Bld) 10.7 g/dL Low 11.9-15.1 [facility] Comment on above: Performed By: #### C BC, HCG, BMP ####[address] [address] MCH 29.4 pg Normal 25.2-33.5 [facility] Comment on above: Performed By: #### C BC, HCG, BMP ####[address] [place] [address] MCHC mass conc (RBC) 32.3 g/dL Normal 28.4-34.8 [facility] Comment on above: Performed By: #### C BC, HCG, BMP ####[facility] [place] [address] MCV 90.9 fL Normal 82.6-102.9 [facility] Comment on above: Performed By: #### C BC, HCG, BMP ####[facility] [address] [place] [address] Platelet mean volume (PMV) 10.6 fL Normal 8.1-13.5 [facility] Comment on above: Performed By: #### C BC, HCG, BMP ####[address] [address] Platelets 206 10*3/uL Normal 138-453 [facility] Comment on above: Performed By: #### C BC, HCG, BMP ####[address] [address] WBC (Leukocytes) 6.3 10*3/uL Normal 3.5-11.3 [facility] Comment on above: Performed By: #### C BC, HCG, BMP ####[address] [address] [address] ABDOMEN PELVIS WO CONTRAS Ton 01-09-2018 CT ABDOMEN PELVIS WO CONTRAST EXAMINATION:CT OF THE ABDOMEN AND PELVIS WITHOUT CONTRAST 01/08/2018 10:50 pmTECHNIQUE:CT of the abdomen and pelvis was performed without the administration ofintravenous contrast. Multiplanar reformatted images are provided for review.Dose modulation, iterative reconstruction, and/or weight based adjustment ofthe mA/kV was utilized to reduce the radiation dose to as low as reasonablyachievable.COMPAR HEATH:None.HISTORY:ORDERING SYSTEM PROVIDED HISTORY: urethral pain and hematuriaFINDINGS:Lower Chest: Dependent atelectatic changes are noted.Organs: The visualized portions of the liver, gallbladder, spleen, pancreasand adrenal glands appear unremarkable within the constraints of anoncontrast exam. No biliary ductal dilatation. There is extensivenephrolithiasis right kidney upper pole. The no hydronephrosis. No leftrenal calculi.GI/Bowel: No bowel dilatation to suggest obstruction. There has beenappendectomy.Pelvis: There is extensive stranding in the perivesical fat and urinarybladder wall thickening. The pelvic organs are otherwise unremarkable.Peritoneum/Ret roperitoneum: There is a fat containing supraumbilical ventralhernia. Infraumbilical midline surgical scar. No fluid collection or freeair. No lymphadenopathy.Bones/Soft Tissues: No acute findings.IMPRESSION: Marked inflammatory change about the urinary bladder consistent with cystitis.Right kidney upper pole nephrolithiasis, nonobstructive.Fat containing supraumbilical ventral hernia.Interpreted by:KAREN Watsonigned by:Gilberto Rasheed MD4/15/18Final result Normal [facility] ED Noteon 01-09-2018 HIM IP Note OR Career Services Manager Normal [facility] HIM IP Note OR Career Services Manager Normal [facility] HCG Screen, Bloodon 01-10-20 18 HCG Qn Negative Normal NEG [facility] Comment on above: Result Comment: Spec imens with hCG levels near the threshold of the test (25 mIU/mL) may give a negative or indeterminate result. In such cases, another test should be performed with a new specimen in 48-72 hours. If early is suspected clinically in this setting, correlation with quantitative serum b-hCG level is suggested.[employer] has confirmed the use of plasma for this test. This has not been cleared or approved by the U.S. Food and Drug Administration. The FDA has determined that such clearance is not necessary.[employer] [address] [place] [address] Performed By: #### C BC, HCG, BMP ####[employer] [place] [address] HCG, ,Urineon 01-09 HCG.beta subunit ( test) Ql (U) Negative Normal NEG [facility] Comment on above: Result Comment: Spec imens with hCG levels near the threshold of the test (25 mIU/mL) may give a negative or indeterminate result. In such cases, another test should be performed with a new specimen in 48-72 hours. If early is suspected clinically in this setting, correlation with quantitative serum b-hCG level is suggested.[employer] [address] [place] [id number] Performed By: #### EVERETT PARKER ####[address] [address] ED Noteon 01-08-2018 HIM IP Note OR Career Services Manager Normal [facility] HIM IP Note OR Career Services Manager Normal [facility] ED Provider Noteon 8 HIM IP Note OR Career Services Manager Normal [facility] Urinalysis w/ Microon 2017 ----- Normal [facility] Comment on above: Performed By: #### Jessica LAW DAJA ####[employer] [place] [address] Acetaminophen mass conc Negative Normal NEG [facility] Comment on above: Performed By: #### EVERETT PARKER ####[employer] [place] [address] Bilirubin (direct) Negative Normal NEG [facility] Comment on above: Performed By: #### Jessica LAW DAJA ####[employer] [place] [address] Hemoglobin mass conc (Bld) LARGE Abnormal NEG [facility] Comment on above: Performed By: #### EVERETT PARKER ####[facility]ience[facility]ftqnnhzhmno[address] [place] [address] Nitrite,Ur Positive Abnormal NEG [facility] Comment on above: Performed By: #### EVERETT PARKER ####[employer] [place] [address] Turbidity CLOUDY Abnormal CLEAR [facility] Comment on above: Performed By: #### U AMIJourdan UHCG ####[facility] [address] [place] [address] Urine WBC's TOO NUMEROUS TO COUNT Normal 0-5 [facility] Comment on above: Performed By: #### U AMIJourdan UHCG ####[facility] [place] [address] Urine, bacteria in sediment MANY Abnormal NONE [facility] Comment on above: Result Comment: [facility] [address] [place] [address] Performed By: #### U AMIJourdan UHCG ####[address] [address] Urine, casts in sediment 0 TO 2 HYALINE Normal 0-8 [facility] Comment on above: Result Comment: Refe rence range defined for non-centrifuged specimen. Performed By: #### U AMIJourdan UHCG ####[facility] [address] [place] [address] Urine, color YELLOW Normal YEL [facility] Comment on above: Performed By: #### U AMIJourdan UHCG ####[facility] [place] [address] Urine, epithelial cells in sediment None Normal 0-5 [facility] Comment on above: Performed By: #### U AMIJourdan UHCG ####[facility] [address] [place] [address] Urine, erythrocytes TOO NUMEROUS TO COUNT Normal 0-4 [facility] Comment on above: Result Comment: Refe rence range defined for non-centrifuged specimen. Performed By: #### U AMIC UHCG ####[facility] [address] [place] [address] Urine, glucose presence Negative Normal NEG [facility] Comment on above: Performed By: #### EVERETT PARKER ####[address] [address] Urine, leukocyte esterase presence SMALL Abnormal NEG [facility] Comment on above: Performed By: #### EVERETT PARKER ####[address] [address] Urine, pH 5.0 [pH] Normal 5.0-8.0 [facility] Comment on above: Performed By: #### EVERETT PARKER ####[address] [address] Urine, protein presence 2+ Abnormal NEG [facility] Comment on above: Performed By: #### EVERETT PARKER ####[address] [address] Urine, specific gravity 1.017 Normal 1.005-1.030 [facility] Comment on above: Performed By: #### EVERETT PARKER ####[address] [address] Urobilinogen,Ur Normal Normal NORM [facility] Comment on above: Performed By: #### JERMAINE PARKERG ####[address] [address] Epithelial, Renal NOT REPORTED Normal 0 [facility] Comment on above: Performed By: #### JERMAINE PARKERG ####[address] [place] [address] Mucus Strands NOT REPORTED Normal NONE [facility] Comment on above: Performed By: #### EVERETT PARKER ####[address] [address] Other Observations NOT REPORTED Normal NREQ [facility] Comment on above: Performed By: #### U AMIC, UHCG ####[facility] [address] [place] [address] Trichomonas NOT REPORTED Normal NONE [facility] Comment on above: Performed By: #### U AMIC, CG ####[employer] [address] [place] [address] Urine, amorphous sediment presence in sediment NOT REPORTED Normal NONE [facility] Comment on above: Performed By: #### U AMIC CG ####[employer] [address] [place] [address] Urine, crystals in sediment NOT REPORTED Normal NONE [facility] Comment on above: Performed By: #### U AMIC CG ####[employer] [address] [place] [address] Urine, yeast presence in sediment NOT REPORTED Normal NONE [facility] Comment on above: Performed By: #### U AMIC CG ####[employer] [place] [address] Vital Signs Date Time Vital Sign Value Performing Clinician Facility 02-18-2025 05:30-0400 SaO2% (BldA) [Mass fraction] 96 % Iban Haji [facility] 02-18-2025 05:30-0400 Heart rate 63 /min Iban Haji [facility] 02-18-2025 04:16-0400 SaO2% (BldA) [Mass fraction] 97 % Iban Haji [facility] 02-18-2025 04:16-0400 Diastolic blood pressure 96 mm[Hg] Iban Haji [facility] 02-18-2025 04:16-0400 Heart rate 63 /min Iban Adithya [facility] 02-18-2025 04:16-0400 Mean blood pressure 117 mm[Hg] Iban Adithya [facility] 02-18-2025 04:16-0400 Respiratory rate 16 /min Iban Adithya [facility] 02-18-2025 04:16-0400 Systolic blood pressure 158 mm[Hg] Iban Adithya [facility] 02-18-2025 00:52-0400 Heart rate 78 /min Iban Adithya [facility] 02-18-2025 00:52-0400 SaO2% (BldA) [Mass fraction] 94 % Iban Adithya [facility] 02-18-2025 00:52-0400 Diastolic blood pressure 78 mm[Hg] Iban Adithya [facility] 02-18-2025 00:52-0400 Systolic blood pressure 127 mm[Hg] Iban Adithya [facility] 02-18-2025 00:52-0400 Mean blood pressure 94 mm[Hg] Iban Adithya [facility] 02-18-2025 00:52-0400 Respiratory rate 16 /min Iban Adithya [facility] 02-18-2025 00:00-0400 Respiratory rate 18 /min Iban Adithya [facility] 02-17-2025 22:53-0400 Body temperature 97.7 [degF] Iban Adithya [facility] 02-17-2025 22:53-0400 Diastolic blood pressure 83 mm[Hg] Iban Adithya [facility] 02-17-2025 22:53-0400 Heart rate 83 /min Iban Adithya [facility] 02-17-2025 22:53-0400 Systolic blood pressure 152 mm[Hg] Iban Haji [facility] 12-06-2024 10:31-0400 Body temperature 98.6 [degF] [facility] 12-06-2024 10:31-0400 Diastolic blood pressure 76 mm[Hg] [facility] 12-06-2024 10:31-0400 Heart rate 82 /min [facility] 12-06-2024 10:31-0400 Respiratory rate 16 /min [facility] 12-06-2024 10:31-0400 SaO2% (BldA) [Mass fraction] 97 % [facility] 12-06-2024 10:31-0400 Systolic blood pressure 138 mm[Hg] [facility] 12-04-2024 21:20-0400 Body temperature 100.22 [degF] Todd Fleming [facility] 12-04-2024 20:14-0400 Blood Pressure Location Todd Fleming [facility] 12-04-2024 20:14-0400 Body temperature 102.02 [degF] Todd Fleming [facility] 12-04-2024 20:14-0400 Diastolic blood pressure 75 mm[Hg] Todd Fleming [facility] 12-04-2024 20:14-0400 Heart rate 94 /min Todd Fleming [facility] 12-04-2024 20:14-0400 Mean blood pressure 99 mm[Hg] Todd Fleming [facility] 12-04-2024 20:14-0400 Respiratory rate 16 /min Todd Bernadette [facility] 12-04-2024 20:14-0400 SaO2% (BldA) [Mass fraction] 95 % Todd Teee [facility] 12-04-2024 20:14-0400 Systolic blood pressure 146 mm[Hg] Todd Teee [facility] 12-04-2024 19:04-0400 Diastolic blood pressure 75 mm[Hg] Todd Teee [facility] 12-04-2024 19:04-0400 Heart rate 86 /min Todd Teee [facility] 12-04-2024 19:04-0400 Mean blood pressure 93 mm[Hg] Todd Teee [facility] 12-04-2024 19:04-0400 SaO2% (BldA) [Mass fraction] 95 % Todd Teee [facility] 12-04-2024 19:04-0400 Systolic blood pressure 128 mm[Hg] Todd Teee [facility] 12-04-2024 17:55-0400 Body temperature 100.58 [degF] Todd Teee [facility] 12-04-2024 17:55-0400 Diastolic blood pressure 83 mm[Hg] Todd Teee [facility] 12-04-2024 17:55-0400 Heart rate 98 /min Todd Teee [facility] 12-04-2024 17:55-0400 Respiratory rate 18 /min Todd Teee [facility] 12-04-2024 17:55-0400 SaO2% (BldA) [Mass fraction] 98 % Todd Teee [facility] 12-04-2024 17:55-0400 Systolic blood pressure 161 mm[Hg] Todd Fleming [facility] 11-01-2024 13:00-0500 Diastolic blood pressure 88 mm[Hg] Stefano Marino [facility] 11-01-2024 13:00-0500 Heart rate 72 /min Stefano Ned [facility] 11-01-2024 13:00-0500 SaO2% (BldA) [Mass fraction] 99 % Stefano Ned [facility] 11-01-2024 13:00-0500 Systolic blood pressure 156 mm[Hg] Stefano Ned [facility] 11-01-2024 10:06-0500 Body temperature 98.06 [degF] Stefano Ned [facility] 11-01-2024 10:06-0500 Diastolic blood pressure 91 mm[Hg] Stefano Ned [facility] 11-01-2024 10:06-0500 Heart rate 70 /min Stefano Ned [facility] 11-01-2024 10:06-0500 Respiratory rate 18 /min Stefanomargie Marino [facility] 11-01-2024 10:06-0500 SaO2% (BldA) [Mass fraction] 98 % Stefano Ned [facility] 11-01-2024 10:06-0500 Systolic blood pressure 157 mm[Hg] Stefano Ned [facility] 10-24-2024 13:24-0500 Body temperature 98.06 [degF] [facility] 10-24-2024 13:24-0500 Diastolic blood pressure 72 mm[Hg] [facility] 10-24-2024 13:24-0500 Heart rate 75 /min [facility] 10-24-2024 13:24-0500 Respiratory rate 20 /min [facility] 10-24-2024 13:24-0500 SaO2% (BldA) [Mass fraction] 97 % [facility] 10-24-2024 13:24-0500 Systolic blood pressure 125 mm[Hg] [facility] 10-14-2024 12:04-0500 Body temperature 97.7 [degF] [facility] 10-14-2024 12:04-0500 Diastolic blood pressure 77 mm[Hg] [facility] 10-14-2024 12:04-0500 Heart rate 80 /min [facility] 10-14-2024 12:04-0500 Respiratory rate 17 /min [facility] 10-14-2024 12:04-0500 SaO2% (BldA) [Mass fraction] 98 % [facility] 10-14-2024 12:04-0500 Systolic blood pressure 173 mm[Hg] [facility] 10-10-2024 10:36-0500 Body height 170 cm [facility] Work Phone: [facility] 10-10-2024 10:36-0500 Body mass index (BMI) [Ratio] 34.33 kg/m2 [facility] Work Phone: [facility] 10-10-2024 10:36-0500 Body weight 99.2 kg [facility] Work Phone: [facility] 09-07-2024 11:14-0500 Blood Pressure Location Brigitte Garcia [facility] 09-07-2024 11:14-0500 Body temperature 97.16 [degF] Brigitte Garcia [facility] 09-07-2024 11:14-0500 Diastolic blood pressure 74 mm[Hg] Brigitte Jose [facility] 09-07-2024 11:14-0500 Heart rate 68 /min Brigitte Garcia [facility] 09-07-2024 11:14-0500 Respiratory rate 18 /min Brigittejorge alberto Garcia [facility] 09-07-2024 11:14-0500 Systolic blood pressure 134 mm[Hg] Brigitte Jose [facility] 08-25-2024 01:48-0500 Diastolic blood pressure 70 mm[Hg] Kaylinn Dokken [facility] 08-25-2024 01:48-0500 Heart rate 66 /min Kaylinn Dokken [facility] 08-25-2024 01:48-0500 Mean blood pressure 88 mm[Hg] Kaylinn Dokken [facility] 08-25-2024 01:48-0500 Respiratory rate 18 /min Kaylinn Dokken [facility] 08-25-2024 01:48-0500 SaO2% (BldA) [Mass fraction] 95 % Kaylinn Dokken [facility] 08-25-2024 01:48-0500 Systolic blood pressure 125 mm[Hg] Kaylinn Dokken [facility] 08-25-2024 00:40-0500 Diastolic blood pressure 63 mm[Hg] Kaylinn Dokken [facility] 08-25-2024 00:40-0500 Heart rate 69 /min Kaylinn Dokken [facility] 08-25-2024 00:40-0500 Mean blood pressure 84 mm[Hg] Kaylinn Dokken [facility] 08-25-2024 00:40-0500 Respiratory rate 18 /min Kaylinn Dokken [facility] 08-25-2024 00:40-0500 SaO2% (BldA) [Mass fraction] 94 % Kaylinn Dokken [facility] 08-25-2024 00:40-0500 Systolic blood pressure 125 mm[Hg] Kaylinn Dokken [facility] 08-24-2024 23:19-0500 Body temperature 98.42 [degF] Kaylinn Dokken [facility] 08-24-2024 23:19-0500 Diastolic blood pressure 78 mm[Hg] Kaylinn Dokken [facility] 08-24-2024 23:19-0500 Heart rate 76 /min Kaylinn Dokken [facility] 08-24-2024 23:19-0500 Respiratory rate 18 /min Kaylinn Dokken [facility] 08-24-2024 23:19-0500 SaO2% (BldA) [Mass fraction] 99 % Kaylinn Dokken [facility] 08-24-2024 23:19-0500 Systolic blood pressure 124 mm[Hg] Kaylinn Dokken [facility] 08-15-2024 13:23-0500 Blood Pressure Location Brigitte Garcia [facility] 08-15-2024 13:23-0500 Body temperature 98.06 [degF] Brigitte Garcia [facility] 08-15-2024 13:23-0500 Diastolic blood pressure 76 mm[Hg] Brigitte Garcia [facility] 08-15-2024 13:23-0500 Heart rate 73 /min Brigitte Garcia [facility] 08-15-2024 13:23-0500 Respiratory rate 16 /min Brigitte Garcia [facility] 08-15-2024 13:23-0500 SaO2% (BldA) [Mass fraction] 98 % Brigitte Garcia [facility] 08-15-2024 13:23-0500 Systolic blood pressure 130 mm[Hg] Brigitte Garcia [facility] 07-12-2024 10:54-0400 Body temperature 97.7 [degF] [facility] 07-12-2024 10:54-0400 Diastolic blood pressure 86 mm[Hg] [facility] 07-12-2024 10:54-0400 Heart rate 61 /min [facility] 07-12-2024 10:54-0400 Respiratory rate 18 /min [facility] 07-12-2024 10:54-0400 SaO2% (BldA) [Mass fraction] 98 % [facility] 07-12-2024 10:54-0400 Systolic blood pressure 144 mm[Hg] [facility] 06-08-2024 19:35-0400 Body temperature 97.88 [degF] Ralph Platt [facility] 06-08-2024 19:35-0400 Diastolic blood pressure 73 mm[Hg] Ralph Lc [facility] 06-08-2024 19:35-0400 Heart rate 67 /min Ralph Lc [facility] 06-08-2024 19:35-0400 Respiratory rate 16 /min Ralph Lc [facility] 06-08-2024 19:35-0400 SaO2% (BldA) [Mass fraction] 99 % Ralph Lc [facility] 06-08-2024 19:35-0400 Systolic blood pressure 116 mm[Hg] Ralph Lc [facility] 06-03-2024 16:39-0400 Diastolic blood pressure 82 mm[Hg] [facility] 06-03-2024 16:39-0400 Heart rate 64 /min [facility] 06-03-2024 16:39-0400 Mean blood pressure 102 mm[Hg] [facility] 06-03-2024 16:39-0400 Respiratory rate 13 /min [facility] 06-03-2024 16:39-0400 SaO2% (BldA) [Mass fraction] 98 % [facility] 06-03-2024 16:39-0400 Systolic blood pressure 141 mm[Hg] [facility] 06-03-2024 14:31-0400 Diastolic blood pressure 81 mm[Hg] [facility] 06-03-2024 14:31-0400 Heart rate 71 /min [facility] 06-03-2024 14:31-0400 Mean blood pressure 98 mm[Hg] [facility] 06-03-2024 14:31-0400 Respiratory rate 22 /min [facility] 06-03-2024 14:31-0400 SaO2% (BldA) [Mass fraction] 98 % [facility] 06-03-2024 14:31-0400 Systolic blood pressure 132 mm[Hg] [facility] 06-03-2024 14:00-0400 Heart rate 60 /min [facility] 06-03-2024 14:00-0400 SaO2% (BldA) [Mass fraction] 97 % [facility] 06-03-2024 13:30-0400 Diastolic blood pressure 68 mm[Hg] [facility] 06-03-2024 13:30-0400 Mean blood pressure 84 mm[Hg] [facility] 06-03-2024 13:30-0400 Systolic blood pressure 117 mm[Hg] [facility] 06-03-2024 12:06-0400 Body temperature 98.24 [degF] [facility] 06-03-2024 12:06-0400 Heart rate 78 /min [facility] 06-03-2024 12:06-0400 Respiratory rate 18 /min [facility] 05-05-2024 15:32-0400 Body temperature 98.78 [degF] Stefano Marino [facility] 05-05-2024 15:32-0400 Diastolic blood pressure 80 mm[Hg] Stefano Marino [facility] 05-05-2024 15:32-0400 Heart rate 81 /min Stefano Marino [facility] 05-05-2024 15:32-0400 Respiratory rate 18 /min Stefano Marino [facility] 05-05-2024 15:32-0400 SaO2% (BldA) [Mass fraction] 95 % Stefano Marino [facility] 05-05-2024 15:32-0400 Systolic blood pressure 150 mm[Hg] Stefano Marino [facility] 04-09-2024 17:32-0400 Diastolic blood pressure 86 mm[Hg] Iban Adithya [facility] 04-09-2024 17:32-0400 Heart rate 65 /min Iban Adithya [facility] 04-09-2024 17:32-0400 Mean blood pressure 103 mm[Hg] Iban Adithya [facility] 04-09-2024 17:32-0400 Respiratory rate 16 /min Iban Adithya [facility] 04-09-2024 17:32-0400 SaO2% (BldA) [Mass fraction] 97 % Iban Adithya [facility] 04-09-2024 17:32-0400 Systolic blood pressure 138 mm[Hg] Iban Adithya [facility] 04-09-2024 16:00-0400 Diastolic blood pressure 78 mm[Hg] Iban Adithya [facility] 04-09-2024 16:00-0400 Heart rate 53 /min Iban Adithya [facility] 04-09-2024 16:00-0400 Mean blood pressure 96 mm[Hg] Iban Adithya [facility] 04-09-2024 16:00-0400 SaO2% (BldA) [Mass fraction] 94 % Iban Adithya [facility] 04-09-2024 16:00-0400 Systolic blood pressure 131 mm[Hg] Iban Adithya [facility] 04-09-2024 15:11-0400 Body temperature 98.06 [degF] Iban Haji [facility] 04-09-2024 15:11-0400 Diastolic blood pressure 71 mm[Hg] Iban Haji [facility] 04-09-2024 15:11-0400 Heart rate 67 /min Iban Haji [facility] 04-09-2024 15:11-0400 Respiratory rate 18 /min Iban Haji [facility] 04-09-2024 15:11-0400 SaO2% (BldA) [Mass fraction] 96 % Iban Haji [facility] 04-09-2024 15:11-0400 Systolic blood pressure 125 mm[Hg] Iban Haji [facility] 04-09-2024 12:50-0400 Body temperature 98.6 [degF] [facility] 04-09-2024 12:50-0400 Diastolic blood pressure 68 mm[Hg] [facility] 04-09-2024 12:50-0400 Heart rate 85 /min [facility] 04-09-2024 12:50-0400 Respiratory rate 16 /min [facility] 04-09-2024 12:50-0400 SaO2% (BldA) [Mass fraction] 96 % [facility] 04-09-2024 12:50-0400 Systolic blood pressure 114 mm[Hg] [facility] 03-20-2024 01:00-0400 Diastolic blood pressure 53 mm[Hg] Ralph Lc [facility] 03-20-2024 01:00-0400 Heart rate 76 /min Ralph Lc [facility] 03-20-2024 01:00-0400 Mean blood pressure 70 mm[Hg] Ralph Lc [facility] 03-20-2024 01:00-0400 Systolic blood pressure 104 mm[Hg] Ralph Lc [facility] 03-20-2024 00:30-0400 Blood Pressure Location Ralph Lc [facility] 03-20-2024 00:30-0400 Diastolic blood pressure 58 mm[Hg] Ralph Lc [facility] 03-20-2024 00:30-0400 Heart rate 81 /min Ralph Lc [facility] 03-20-2024 00:30-0400 Mean blood pressure 80 mm[Hg] Ralph Lc [facility] 03-20-2024 00:30-0400 Respiratory rate 16 /min Ralph Lc [facility] 03-20-2024 00:30-0400 SaO2% (BldA) [Mass fraction] 97 % Ralph Lc [facility] 03-20-2024 00:30-0400 Systolic blood pressure 123 mm[Hg] Ralph Lc [facility] 03-19-2024 23:39-0400 Body temperature 98.24 [degF] Ralph Lc [facility] 03-19-2024 23:39-0400 Diastolic blood pressure 78 mm[Hg] Ralph Lc [facility] 03-19-2024 23:39-0400 Heart rate 83 /min Ralph Lc [facility] 03-19-2024 23:39-0400 SaO2% (BldA) [Mass fraction] 95 % Ralph Lc [facility] 03-19-2024 23:39-0400 Systolic blood pressure 134 mm[Hg] Ralph Lc [facility] 03-12-2024 02:18-0400 Diastolic blood pressure 131 mm[Hg] Kaylinn Dokken [facility] 03-12-2024 02:18-0400 Heart rate 72 /min Kaylinn Dokken [facility] 03-12-2024 02:18-0400 Mean blood pressure 137 mm[Hg] Kaylinn Dokken [facility] 03-12-2024 02:18-0400 Respiratory rate 18 /min Kaylinn Dokken [facility] 03-12-2024 02:18-0400 SaO2% (BldA) [Mass fraction] 96 % Kaylinn Dokken [facility] 03-12-2024 02:18-0400 Systolic blood pressure 149 mm[Hg] Kaylinn Dokken [facility] 03-12-2024 01:18-0400 Diastolic blood pressure 69 mm[Hg] Kaylinn Dokken [facility] 03-12-2024 01:18-0400 Heart rate 70 /min Kaylinn Dokken [facility] 03-12-2024 01:18-0400 Mean blood pressure 86 mm[Hg] Kaylinn Dokken [facility] 03-12-2024 01:18-0400 Respiratory rate 16 /min Kaylinn Dokken [facility] 03-12-2024 01:18-0400 SaO2% (BldA) [Mass fraction] 95 % Kaylinn Dokken [facility] 03-12-2024 01:18-0400 Systolic blood pressure 119 mm[Hg] Kaylinn Dokken [facility] 03-12-2024 00:18-0400 Diastolic blood pressure 68 mm[Hg] Kaylinn Dokken [facility] 03-12-2024 00:18-0400 Heart rate 70 /min Kaylinn Dokken [facility] 03-12-2024 00:18-0400 Mean blood pressure 87 mm[Hg] Kaylinn Dokken [facility] 03-12-2024 00:18-0400 Respiratory rate 18 /min Kaylinn Dokken [facility] 03-12-2024 00:18-0400 SaO2% (BldA) [Mass fraction] 97 % Kaylinn Dokken [facility] 03-12-2024 00:18-0400 Systolic blood pressure 125 mm[Hg] Kaylinn Dokken [facility] 03-11-2024 23:35-0400 Body temperature 98.24 [degF] Kaylinn Dokken [facility] 03-11-2024 23:35-0400 Heart rate 83 /min Kaylinn Dokken [facility] 03-11-2024 23:35-0400 Respiratory rate 20 /min Kaylinn Dokken [facility] 03-09-2024 16:00-0400 Diastolic blood pressure 74 mm[Hg] Todd Bernadette [facility] 03-09-2024 16:00-0400 Heart rate 59 /min Todd Bernadette [facility] 03-09-2024 16:00-0400 Mean blood pressure 87 mm[Hg] Todd Bernadette [facility] 03-09-2024 16:00-0400 SaO2% (BldA) [Mass fraction] 99 % Todd Bernadette [facility] 03-09-2024 16:00-0400 Systolic blood pressure 114 mm[Hg] Todd Bernadette [facility] 03-09-2024 15:00-0400 Diastolic blood pressure 69 mm[Hg] Todd Bernadette [facility] 03-09-2024 15:00-0400 Heart rate 50 /min Todd Bernadette [facility] 03-09-2024 15:00-0400 Mean blood pressure 85 mm[Hg] Todd Bernadette [facility] 03-09-2024 15:00-0400 Respiratory rate 16 /min Todd Bernadette [facility] 03-09-2024 15:00-0400 SaO2% (BldA) [Mass fraction] 98 % Todd Bernadette [facility] 03-09-2024 15:00-0400 Systolic blood pressure 116 mm[Hg] Todd Bernadette [facility] 03-09-2024 14:00-0400 Diastolic blood pressure 64 mm[Hg] Todd Bernadette [facility] 03-09-2024 14:00-0400 Heart rate 75 /min Todd Bernadette [facility] 03-09-2024 14:00-0400 Mean blood pressure 86 mm[Hg] Todd Teee [facility] 03-09-2024 14:00-0400 Respiratory rate 17 /min Todd Bernadette [facility] 03-09-2024 14:00-0400 SaO2% (BldA) [Mass fraction] 97 % Todd Bernadette [facility] 03-09-2024 14:00-0400 Systolic blood pressure 131 mm[Hg] Todd Bernadette [facility] 03-09-2024 13:21-0400 Body temperature 98.24 [degF] Todd Bernadette [facility] 03-09-2024 13:21-0400 Heart rate 70 /min Todd Bernadette [facility] 03-09-2024 13:21-0400 Respiratory rate 18 /min Todd Bernadette [facility] 03-04-2024 13:36-0400 Diastolic blood pressure 76 mm[Hg] Todd Bernadette [facility] 03-04-2024 13:36-0400 Heart rate 66 /min Todd Teee [facility] 03-04-2024 13:36-0400 Mean blood pressure 93 mm[Hg] Todd Bernadette [facility] 03-04-2024 13:36-0400 Respiratory rate 18 /min Todd Bernadette [facility] 03-04-2024 13:36-0400 SaO2% (BldA) [Mass fraction] 98 % Todd Bernadette [facility] 03-04-2024 13:36-0400 Systolic blood pressure 127 mm[Hg] Todd Bernadette [facility] 03-04-2024 11:58-0400 Body temperature 98.06 [degF] Todd Fleming [facility] 03-04-2024 11:58-0400 Diastolic blood pressure 79 mm[Hg] Todd Fleming [facility] 03-04-2024 11:58-0400 Heart rate 80 /min Todd Fleming [facility] 03-04-2024 11:58-0400 Respiratory rate 16 /min Todd Fleming [facility] 03-04-2024 11:58-0400 SaO2% (BldA) [Mass fraction] 97 % Todd Fleming [facility] 03-04-2024 11:58-0400 Systolic blood pressure 165 mm[Hg] Todd Fleming [facility] 01-04-2024 09:59-0400 Blood Pressure Location Brigitte Garcia [facility] 01-04-2024 09:59-0400 Body temperature 97.7 [degF] Brigitte Garcia [facility] 01-04-2024 09:59-0400 Diastolic blood pressure 76 mm[Hg] Brigitte Garcia [facility] 01-04-2024 09:59-0400 Heart rate 60 /min Brigitte Garcia [facility] 01-04-2024 09:59-0400 Respiratory rate 18 /min Brigitte Garcia [facility] 01-04-2024 09:59-0400 SaO2% (BldA) [Mass fraction] 97 % Brigitte Garcia [facility] 01-04-2024 09:59-0400 Systolic blood pressure 122 mm[Hg] Brigitte Jose [facility] 12-25-2023 21:36-0400 Blood Pressure Location Stefano Marino [facility] 12-25-2023 21:36-0400 Diastolic blood pressure 80 mm[Hg] Stefano Marino [facility] 12-25-2023 21:36-0400 Heart rate 60 /min Stefanomargie Marino [facility] 12-25-2023 21:36-0400 Respiratory rate 16 /min Stefanomargie Marino [facility] 12-25-2023 21:36-0400 SaO2% (BldA) [Mass fraction] 98 % Stefano Marino [facility] 12-25-2023 21:36-0400 Systolic blood pressure 122 mm[Hg] Stefano Marino [facility] 12-25-2023 19:06-0400 Body temperature 98.24 [degF] Stefano Marino [facility] 12-25-2023 19:06-0400 Diastolic blood pressure 85 mm[Hg] Stefano Marino [facility] 12-25-2023 19:06-0400 Heart rate 75 /min Stefano Marino [facility] 12-25-2023 19:06-0400 SaO2% (BldA) [Mass fraction] 95 % Stefano Marino [facility] 12-25-2023 19:06-0400 Systolic blood pressure 154 mm[Hg] Stefano Marino [facility] 12-23-2023 13:07-0400 Diastolic blood pressure 87 mm[Hg] Iban Adithya [facility] 12-23-2023 13:07-0400 Heart rate 70 /min Iban Adithya [facility] 12-23-2023 13:07-0400 Respiratory rate 16 /min Iban Adithya [facility] 12-23-2023 13:07-0400 SaO2% (BldA) [Mass fraction] 98 % Iban Adithya [facility] 12-23-2023 13:07-0400 Systolic blood pressure 149 mm[Hg] Iban Adithya [facility] 12-23-2023 11:33-0400 Body temperature 98.24 [degF] Iban Adithya [facility] 12-23-2023 11:33-0400 Diastolic blood pressure 73 mm[Hg] Iban Adithya [facility] 12-23-2023 11:33-0400 Heart rate 74 /min Iban Adithya [facility] 12-23-2023 11:33-0400 Respiratory rate 16 /min Iban Adithya [facility] 12-23-2023 11:33-0400 SaO2% (BldA) [Mass fraction] 98 % Iban Adithya [facility] 12-23-2023 11:33-0400 Systolic blood pressure 137 mm[Hg] Iban Adithya [facility] 12-12-2023 15:42-0400 Diastolic blood pressure 64 mm[Hg] Todd Fleming [facility] 12-12-2023 15:42-0400 Heart rate 89 /min Todd Fleming [facility] 12-12-2023 15:42-0400 Mean blood pressure 83 mm[Hg] Todd Bernadette [facility] 12-12-2023 15:42-0400 Respiratory rate 16 /min Todd Bernadette [facility] 12-12-2023 15:42-0400 SaO2% (BldA) [Mass fraction] 95 % Todd Bernadette [facility] 12-12-2023 15:42-0400 Systolic blood pressure 121 mm[Hg] Todd Bernadette [facility] 12-12-2023 14:30-0400 Diastolic blood pressure 67 mm[Hg] Todd Bernadette [facility] 12-12-2023 14:30-0400 Heart rate 78 /min Todd Bernadette [facility] 12-12-2023 14:30-0400 Mean blood pressure 89 mm[Hg] Todd Bernadette [facility] 12-12-2023 14:30-0400 Respiratory rate 16 /min Todd Bernadette [facility] 12-12-2023 14:30-0400 SaO2% (BldA) [Mass fraction] 95 % Todd Bernadette [facility] 12-12-2023 14:30-0400 Systolic blood pressure 133 mm[Hg] Todd Bernadette [facility] 12-12-2023 13:30-0400 Diastolic blood pressure 66 mm[Hg] Todd Bernadette [facility] 12-12-2023 13:30-0400 Heart rate 79 /min Todd Bernadette [facility] 12-12-2023 13:30-0400 Mean blood pressure 93 mm[Hg] Todd Bernadette [facility] 12-12-2023 13:30-0400 SaO2% (BldA) [Mass fraction] 94 % Todd Fleming [facility] 12-12-2023 13:30-0400 Systolic blood pressure 147 mm[Hg] Todd Fleming [facility] 12-12-2023 12:44-0400 Body temperature 99.32 [degF] Todd Fleming [facility] 12-12-2023 12:44-0400 Heart rate 80 /min Todd Fleming [facility] 12-12-2023 12:44-0400 Respiratory rate 16 /min Todd Fleming [facility] 12-08-2023 12:55-0400 Blood Pressure Location Brigitte Garcia [facility] 12-08-2023 12:55-0400 Body temperature 97.52 [degF] Brigitte Garcia [facility] 12-08-2023 12:55-0400 Diastolic blood pressure 78 mm[Hg] Brigitte Garcia [facility] 12-08-2023 12:55-0400 Heart rate 63 /min Brigitte Garcia [facility] 12-08-2023 12:55-0400 Respiratory rate 18 /min Brigitte Garcia [facility] 12-08-2023 12:55-0400 SaO2% (BldA) [Mass fraction] 97 % Brigitte Garcia [facility] 12-08-2023 12:55-0400 Systolic blood pressure 126 mm[Hg] Brigitte Garcia [facility] 11-26-2023 17:25-0500 Body temperature 98.06 [degF] Stefano Marino [facility] 11-26-2023 17:25-0500 Diastolic blood pressure 97 mm[Hg] Stefano Marino [facility] 11-26-2023 17:25-0500 Heart rate 73 /min Stefano Marino [facility] 11-26-2023 17:25-0500 Respiratory rate 18 /min Stefano Marino [facility] 11-26-2023 17:25-0500 SaO2% (BldA) [Mass fraction] 96 % Stefano Marino [facility] 11-26-2023 17:25-0500 Systolic blood pressure 142 mm[Hg] Stefano Marino [facility] 11-14-2023 12:27-0500 Body temperature 97.52 [degF] Todd Fleming [facility] 11-14-2023 12:27-0500 Diastolic blood pressure 82 mm[Hg] Todd Teee [facility] 11-14-2023 12:27-0500 Heart rate 68 /min Todd Teee [facility] 11-14-2023 12:27-0500 Respiratory rate 16 /min Todd Fleming [facility] 11-14-2023 12:27-0500 SaO2% (BldA) [Mass fraction] 98 % Todd Teee [facility] 11-14-2023 12:27-0500 Systolic blood pressure 131 mm[Hg] Todd Fleming [facility] 10-03-2023 14:10-0500 Body temperature 98.24 [degF] Todd Fleming [facility] 10-03-2023 14:10-0500 Diastolic blood pressure 76 mm[Hg] Todd Fleming [facility] 10-03-2023 14:10-0500 Heart rate 65 /min Todd Fleming [facility] 10-03-2023 14:10-0500 Respiratory rate 18 /min Todd Fleming [facility] 10-03-2023 14:10-0500 SaO2% (BldA) [Mass fraction] 99 % Todd Fleming [facility] 10-03-2023 14:10-0500 Systolic blood pressure 144 mm[Hg] Todd Fleming [facility] 10-02-2023 01:47-0500 Body temperature 97.7 [degF] Ralph Lc [facility] 10-02-2023 01:47-0500 Diastolic blood pressure 89 mm[Hg] Ralph Lc [facility] 10-02-2023 01:47-0500 Heart rate 69 /min Ralph Lc [facility] 10-02-2023 01:47-0500 Respiratory rate 16 /min Ralph Lc [facility] 10-02-2023 01:47-0500 SaO2% (BldA) [Mass fraction] 96 % Ralph Lc [facility] 10-02-2023 01:47-0500 Systolic blood pressure 142 mm[Hg] Ralph Lc [facility] 03-22-2023 21:53-0400 Body temperature 96.98 [degF] Annemarieinn Dokken [facility] 03-22-2023 21:53-0400 Diastolic blood pressure 63 mm[Hg] Kaylinn Dokken [facility] 03-22-2023 21:53-0400 Heart rate 69 /min Seeylinn Dokken [facility] 03-22-2023 21:53-0400 Respiratory rate 14 /min Annemarieinn Dokken [facility] 03-22-2023 21:53-0400 SaO2% (BldA) [Mass fraction] 100 % Annemarieinn Dokken [facility] 03-22-2023 21:53-0400 Systolic blood pressure 128 mm[Hg] Seeylinn Dokken [facility] 01-06-2023 14:41-0400 Diastolic blood pressure 75 mm[Hg] Stefano Ned [facility] 01-06-2023 14:41-0400 Heart rate 58 /min Stefano Ned [facility] 01-06-2023 14:41-0400 Respiratory rate 14 /min Stefano Ned [facility] 01-06-2023 14:41-0400 SaO2% (BldA) [Mass fraction] 100 % Stefano Ned [facility] 01-06-2023 14:41-0400 Systolic blood pressure 126 mm[Hg] Stefano Ned [facility] 01-06-2023 14:12-0400 Diastolic blood pressure 72 mm[Hg] Stefano Ned [facility] 01-06-2023 14:12-0400 Heart rate 46 /min Stefano Ned [facility] 01-06-2023 14:12-0400 Respiratory rate 12 /min Stefano Ned [facility] 01-06-2023 14:12-0400 SaO2% (BldA) [Mass fraction] 96 % Stefano Ned [facility] 01-06-2023 14:12-0400 Systolic blood pressure 125 mm[Hg] Stefano Ned [facility] 01-06-2023 13:12-0400 Diastolic blood pressure 53 mm[Hg] Stefano Ned [facility] 01-06-2023 13:12-0400 Heart rate 61 /min Stefano Ned [facility] 01-06-2023 13:12-0400 Respiratory rate 4 /min Stefano Ned [facility] 01-06-2023 13:12-0400 SaO2% (BldA) [Mass fraction] 97 % Stefano Ned [facility] 01-06-2023 13:12-0400 Systolic blood pressure 109 mm[Hg] Stefano Ned [facility] 01-06-2023 12:31-0400 gluc 108 mg/dL Stefano Ned [facility] 01-06-2023 12:31-0400 gluc Stefanomargie Marino [facility] 01-06-2023 12:11-0400 Body temperature 98.24 [degF] Stefano Marino [facility] 01-06-2023 12:11-0400 Heart rate 54 /min Stefanomargie Marino [facility] 12-02-2022 11:32-0500 Body temperature 99.1 [degF] Denis Viera MD Work Phone: [facility] 12-02-2022 11:32-0500 Body weight 89.36 kg Denis Viera MD Work Phone: [facility] 12-02-2022 11:32-0500 Diastolic blood pressure 55 mm[Hg] Denis Viera MD Work Phone: [facility] 12-02-2022 11:32-0500 Heart rate 62 /min Denis Viera MD Work Phone: [facility] 12-02-2022 11:32-0500 Systolic blood pressure 131 mm[Hg] Denis Viera MD Work Phone: [facility] 11-23-2022 21:06-0500 Body temperature 98.06 [degF] [facility] 11-23-2022 21:06-0500 Diastolic blood pressure 83 mm[Hg] [facility] 11-23-2022 21:06-0500 Heart rate 67 /min [facility] 11-23-2022 21:06-0500 Respiratory rate 16 /min [facility] 11-23-2022 21:06-0500 SaO2% (BldA) [Mass fraction] 94 % [facility] 11-23-2022 21:06-0500 Systolic blood pressure 147 mm[Hg] [facility] 11-03-2022 10:01-0500 Body temperature 97.9 [degF] Denis Viera MD Work Phone: [facility] 11-03-2022 10:01-0500 Body weight 88.36 kg Denis Viera MD Work Phone: [facility] 11-03-2022 10:01-0500 Diastolic blood pressure 75 mm[Hg] Denis Viera MD Work Phone: [facility] 11-03-2022 10:01-0500 Heart rate 61 /min Denis Viera MD Work Phone: [facility] 11-03-2022 10:01-0500 Respiratory rate 16 /min Denis Viera MD Work Phone: [facility] 11-03-2022 10:01-0500 SaO2% (BldA) [Mass fraction] 96 % Denis Viera MD Work Phone: [facility] 11-03-2022 10:01-0500 Systolic blood pressure 142 mm[Hg] Denis Viera MD Work Phone: [facility] 10-12-2022 15:38-0500 Blood Pressure Location Muriel BROOKS [facility] 10-12-2022 15:38-0500 Body temperature 97.88 [degF] Muriel BOROKS [facility] 10-12-2022 15:38-0500 Diastolic blood pressure 76 mm[Hg] Muriel BROOKS [facility] 10-12-2022 15:38-0500 Heart rate 70 /min Muriel BOROKS [facility] 10-12-2022 15:38-0500 SaO2% (BldA) [Mass fraction] 97 % Muriel BROOKS [facility] 10-12-2022 15:38-0500 Systolic blood pressure 120 mm[Hg] Muriel BROOKS [facility] 06-02-2022 09:42-0400 Body temperature 98.78 [degF] Dann Whitmore [facility] 06-02-2022 09:42-0400 Diastolic blood pressure 80 mm[Hg] [facility]3]rossana Whitmore [facility] 06-02-2022 09:42-0400 Heart rate 64 /[facility]-02[facility]22 09:42-0400 Respiratory rate 20 /min [facility] 06-02-2022 09:42-0400 SaO2% (BldA) [Mass fraction] 96 % [facility] 06-02-2022 09:42-0400 Systolic blood pressure 155 mm[Hg] [facility] Encounters Encounter Date Encounter Type Care Provider Facility Start: 10-17-2025 ambulatory Leon Chavez ty:[facility] Start: 06-13-2025 End: 06-13-2025 Patient encounter procedure Leon Haro [employer]-C [facility] Start: 06-13-2025 End: 06-13-2025 Transcribe Orders Provider Not In System [facility] Comment on above: DDD (degenerative di sc disease), lumbosacral (Primary Dx); Left-sided low back pain with sciatica; Scoliosis, unspecified scoliosis type, unspecified spinal region; Recurrent headache; Pelvis fracture (HCC) Start: 06-13-2025 End: 06-13-2025 Well adult monitoring check done Leon Haro [employer]NA[employer]ION ANALYST-C [facility] Start: 06-12-2025 End: 06-12-2025 Emergency department patient visit Dann Whitmore [place] Start: 06-11-2025 End: 06-11-2025 ambulatory Elayne Adler Facility:[facility] Start: 06-11-2025 End: 06-11-2025 Patient encounter procedure Elayne Adler [facility] Start: 06-03-2025 End: 06-03-2025 ambulatory Elayne Adler Facility:[facility] Start: 06-03-2025 End: 06-03-2025 Patient encounter procedure Elayne Adler [facility] Start: 05-25-2025 End: 05-25-2025 Emergency department patient visit Dann Whitmore [place] Start: 05-07-2025 End: 05-07-2025 Emergency department patient visit Todd Fleming Facility[facility] Start: 05-06-2025 End: 05-06-2025 ambulatory Elayne Adler Facility:[facility] Start: 05-06-2025 End: 05-06-2025 Patient encounter procedure Elayne Adler [facility] Start: 05-02-2025 [facility]ulatory [facility] Start: 04-15-2025 End: 04-15-2025 Emergency department patient visit Mahesh Polo [facility] Start: 04-04-2025 End: 04-04-2025 Telephone encounter Leodan Pittman DO Work Phone: [facility] Comment on above: pubic rami fx Start: 04-02-2025 End: 04-02-2025 ambulatory Elayne Adler Facility:[facility] Start: 04-02-2025 End: 04-02-2025 Patient encounter procedure Elayne Adler [facility] Start: 04-01-2025 End: 04-01-2025 Emergency department patient visit DO Micah Greer [place] Start: 03-04-2025 End: 03-04-2025 ambulatory Elayne Adler Facility:[facility] Start: 03-04-2025 End: 03-04-2025 Patient encounter procedure Elayne Adler [facility] Start: 02-17-2025 End: 02-18-2025 Emergency department patient visit Iban aHji [facility] Start: 02-12-2025 End: 02-12-2025 ambulatory Elayne Adler Facility:[facility] Start: 02-12-2025 End: 02-12-2025 Patient encounter procedure Elayne EReese Vitor [facility] Start: 01-28-2025 End: 01-28-2025 ambulatory Elaynekylee Adler Facility:[facility] Start: 12-18-2024 End: 12-18-2024 ambulatory Elayne InfanteReese Vitor Facility:[facility] Start: 12-15-2024 End: 12-15-2024 Emergency department patient visit Dann Whitmore [place] Start: 12-06-2024 End: 12-06-2024 Emergency department patient visit [facility]3]rossana Whitmore [facility] Start: 12-04-2024 End: 12-04-2024 Emergency department patient visit Todd Fleming [facility] Start: 11-01-2024 End: 11-01-2024 Emergency department patient visit Stefano Marino [facility] Start: 10-27-2024 End: 10-29-2024 Clinisync Result Encounter Mahesh CINTRON Work Phone: [facility] Unsolicited Start: 10-27-2024 End: 10-29-2024 Clinisync Result Encounter Mahesh CINTRON Work Phone: [facility] Unsolicited Start: 10-24-2024 End: 10-24-2024 Emergency department patient visit [facility]3]rossana Keithmelvin [facility] Start: 10-23-2024 End: 10-23-2024 Telephone encounter Rubia Driver RN Gynecology Comment on above: Patient Question Start: 10-22-2024 End: 10-23-2024 ambulatory Chapo Bauman PT Work Phone: [facility] Comment on above: Degeneration of inte rvertebral disc of lumbosacral region with discogenic back pain and lower extremity pain (Primary Dx); Chronic right-sided low back pain with right-sided sciatica; Strain of left groin Start: 10-22-2024 End: 10-22-2024 Bamboo flowsheet Chapo Bauman PT Work Phone: [facility] Start: 10-22-2024 End: 10-22-2024 Bamboo flowsheet Chapo Bauman PT Work Phone: [facility] Start: 10-14-2024 End: 10-14-2024 Emergency department patient visit Dannrossana Gates Haim [facility] Start: 10-10-2024 End: 10-10-2024 Bamboo flowsheet Kizzy Herrera PA Work Phone: [facility] Start: 10-10-2024 End: 10-10-2024 Bamboo flowsheet Kizzy Herrera PA Work Phone: [facility] Start: 10-10-2024 End: 10-10-2024 Patient encounter procedure Kizzy Herrera PA Work Phone: [facility] Comment on above: Degeneration of inte rvertebral disc of lumbosacral region with discogenic back pain and lower extremity pain (Primary Dx); Chronic right-sided low back pain with right-sided sciatica; Low back pain, unspecified back pain laterality, unspecified chronicity, unspecified whether sciatica present Start: 10-10-2024 End: 10-10-2024 ambulatory KIZZY HERRERA Not Available Start: 09-25-2024 End: 09-25-2024 ambulatory Brigitte Garcia [place] Start: 09-25-2024 End: 09-25-2024 Patient encounter procedure Brigitte Garcia [facility] Start: 09-21-2024 End: 09-22-2024 Pre-admission assessment Brigitte Garcia [facility] Start: 09-07-2024 End: 09-07-2024 ambulatory Brigitte Garcia Facility:[facility] Start: 09-07-2024 End: 09-07-2024 Patient encounter procedure Brigitte Garcia [facility] Start: 09-06-2024 End: 09-07-2024 Pre-admission assessment Brigitte Garcia [facility] Start: 08-30-2024 End: 08-30-2024 ambulatory Brigitte Garcia [place] Start: 08-30-2024 End: 08-30-2024 Patient encounter procedure Brigitte Garcia [facility] Start: 08-29-2024 End: 08-29-2024 ambulatory Brigitte Garcia Facility[place] Start: 08-29-2024 End: 08-29-2024 Patient encounter procedure Brigitte Garcia [facility] Start: 08-24-2024 End: 08-25-2024 Emergency department patient visit Micah Greer [facility] Start: 08-15-2024 End: 08-15-2024 ambulatory Brigitte Garcia Facility:[facility] Start: 08-15-2024 End: 08-15-2024 Patient encounter procedure Brigitte Garcia [facility] Start: 07-12-2024 End: 07-12-2024 Emergency department patient visit Dann Whitmore [facility] Start: 07-02-2024 End: 10-16-2024 ambulatory Brigitte Garcia [place] Start: 07-02-2024 End: 10-16-2024 Recurring Brigitte Garcia [facility] Start: 06-08-2024 End: 06-08-2024 Emergency department patient visit Ralph Sharon Lc [facility] Start: 06-03-2024 End: 06-03-2024 Emergency department patient visit [facility]3]rossana Whitmore [facility] Start: 05-05-2024 End: 05-05-2024 Emergency department patient visit Stefano Marino [facility] Start: 04-09-2024 End: 04-09-2024 Emergency department patient visit Iban Adithya [facility] Start: 04-09-2024 End: 04-09-2024 Emergency department patient visit [facility]3]rossana Whitmore [facility] Start: 03-19-2024 End: 03-20-2024 Emergency department patient visit Ralphdarrell Rothner [facility] Start: 03-16-2024 ambulatory Brigitte Garcia [facility] ity:Manuel WOODY Start: 03-11-2024 End: 03-12-2024 Emergency department patient visit Micah Greer [facility] Start: 03-09-2024 ambulatory Brigitte Garcia Facil ity:[facility] Start: 03-09-2024 End: 03-09-2024 Emergency department patient visit Todd Fleming [facility] Start: 03-04-2024 End: 03-04-2024 Emergency department patient visit Todd Fleming [place] Start: 01-12-2024 ambulatory Brigitte Garcia Facil ity:[facility] Start: 01-04-2024 End: 01-04-2024 Lab Drop off Brigitte Garcia [facility] Start: 01-04-2024 End: 01-04-2024 ambulatory Brigitte Garcia [facility] Start: 01-04-2024 End: 01-04-2024 Patient encounter procedure Brigitte Garcia [facility] Start: 12-25-2023 End: 12-25-2023 Emergency department patient visit Stefano Marino [facility] Start: 12-23-2023 End: 12-23-2023 Emergency department patient visit Iban Adithya [facility] Start: 12-12-2023 End: 12-12-2023 Emergency department patient visit Todd Fleming [facility] Start: 12-08-2023 End: 12-08-2023 ambulatory Brigitte Garcia Facility:[facility] Start: 12-08-2023 End: 12-08-2023 Patient encounter procedure Brigitte Garcia [facility] Start: 11-26-2023 End: 11-26-2023 Emergency department patient visit Stefano Marino [facility] Start: 11-14-2023 End: 11-14-2023 Emergency department patient visit Todd Fleming [facility] Start: 10-27-2023 ambulatory Tanishaoniel Whatley issac ALEX Work Phone: Gynecology Start: 10-03-2023 End: 10-03-2023 Emergency department patient visit Todd Fleming [facility] Start: 10-02-2023 End: 10-02-2023 Emergency department patient visit Ralph LeiReese Platt [facility] Start: 03-22-2023 End: 03-22-2023 Emergency department patient visit Micah Mendez Zoey [facility] Start: 01-06-2023 End: 01-06-2023 Emergency department patient visit Stefano Marino [facility] Start: 12-02-2022 End: 12-02-2022 ambulatory Denis Viera MD Work Phone: Gynecology Comment on above: History of cervical cancer (Primary Dx); Cervical high risk human papillomavirus (HPV) DNA test positive [R87.810 (ICD-10-CM)] Start: 12-02-2022 End: 12-02-2022 Patient encounter procedure Denis Viera MD Work Phone: [facility] Start: 11-26-2022 End: 11-26-2022 Patient encounter procedure Emre Owen [facility] Start: 11-23-2022 End: 11-23-2022 Emergency department patient visit Dann Whitmore [facility] Start: 11-18-2022 End: 11-18-2022 ambulatory Denis Viera MD Work Phone: Gynecology Comment on above: Other abnormal cytol ogical finding of specimen from cervix [R87.618 (ICD-10-CM)] (Primary Dx) Start: 11-18-2022 End: 11-18-2022 Telemedicine consultation with patient Denis Viera MD Work Phone: [facility] Start: 11-10-2022 Telephone encounter Denis Viera MD Work Phone: Cancer [facility] Comment on above: Appointment Confirma tion Start: 11-04-2022 Telephone encounter Denis Viera MD Work Phone: Cancer [facility] Comment on above: Orders Start: 11-03-2022 End: 11-03-2022 ambulatory OSVALDO BEARDEN Facility:[facility] Start: 11-03-2022 End: 11-03-2022 Follow-up encounter Denis Viera MD Work Phone: Gynecology Oncology Comment on above: History of cervical cancer (Primary Dx); Encounter for follow-up surveillance of cervical cancer Start: 11-03-2022 End: 11-03-2022 Patient encounter procedure Denis Viera MD Work Phone: [facility] Start: 10-12-2022 End: 10-12-2022 Patient encounter procedure Muriel BROOKS [facility] Start: 10-07-2022 End: 10-07-2022 Patient encounter procedure Julee Castro [facility] Start: 06-22-2022 End: 06-22-2022 Patient encounter procedure Brooke Mendez ROSIEBL [facility] Start: 06-02-2022 End: 06-02-2022 Emergency department patient visit Dann Whitmore [facility] Start: 05-27-2022 End: 05-27-2022 Patient encounter procedure Adeline Gudimella [facility] [place] Start: 01-08-2018 End: 01-09-2018 Emergency department patient visit CIPRIANO BARRAGAN [facility] Procedures Date Procedure Procedure Detail Performing Clinician Start: 10-27-2024 BLOOD CULTURE 2 Mahesh CINTRON Work Phone: Start: 10-27-2024 BLOOD CULTURE 1 Mahesh CINTRON Work Phone: Start: 12-02-2022 Level iv surg pathol ogy gross&microscopic exam Denis Viera MD Work Phone: Start: 11-03-2022 Microscopic observat ion [Identifier] in Cervix by Cyto stain Kizzy CINTRON Work Phone: Start: 03-07-2020 Cystoscopy Adeline Gud imella Start: 01-09-2018 Ct abdomen & pelvis w/o contrast material CIPRIANO BARRAGAN Start: 01-09-2018 POCT URINE ABRAHAM BARRAGAN Start: 01-09-2018 BASIC METABOLIC PANEL Moraima BARRAGAN Start: 01-09-2018 CBC CIPRIANO Lei Start: 01-09-2018 HCG, SERUM, QUALITATIVE CIPRIANO BARRAGAN Start: 01-09-2018 INSERT PERIPHERAL IV ABRAHAM BARRAGAN Start: 01-08-2018 , URINE CIPRIANO POTTS Start: 01-08-2018 URINALYSIS WITH MICROSCOPIC CIPRIANO BARRAGAN Start: 01-08-2018 URINE CULTURE CIPRIANO SUAREZ Start: 01-08-2018 BLADDER SCAN CIPRIANO EISENBERG S Start: 10-06-2016 :LEEP, exam under anesthesia Adeline Gudimella Start: 11-25-2015 hernia repair 1 Adeline Gudimella Comment on above: recurrent incisional Start: 05-13-2015 Incisional hernia repair Adeline Gudimella Start: 09-26-2003 section Adeline Gudimella Start: 09-26-2003 Ligation of fallopia n tube Adeline Gudimella Ca cervix screening - up-to-date (finding) Adeline Gudimella Chemotherapy Chemotherapy( Confirmed ) Adeline Gudimella lymph nodes removed from abdomen Adeline Gudimella T&A Adeline Chaitanyamell a urethra dialation Adeline Gud imella Plan of Treatment Date Care Activity Detail Author Start: 11-03-2027 HPV TESTING HPV TESTING [facility] Start: 11-03-2027 PAP TESTING PAP TESTING [facility] Start: 11-03-2027 Screening for malign ant neoplasm of cervix [facility] Start: 11-03-2025 Screening for malign ant neoplasm of cervix Pap Smear [facility] Start: 05-27-2025 Influenza vaccination Influenza Vacc ine (#1) [facility] Start: 04-16-2025 End: 04-16-2025 Patient encounter procedure 04/16/2025 1:45 PM EDT Office Visit [facility] [address] [place] [address] Omari Shirley DO [address] [place] [address] [facility] Start: 12-12-2024 End: 12-12-2024 Follow-up encounter 12/12/2024 9:45 AM EDT Visit (SP) Office Gynecology Oncology [address] [place] [address] [place] [address] Denis Viera MD [address] [place] [address] follow up Gynecology Oncology Comment on above: follow up Start: 11-19-2024 End: 11-19-2024 ambulatory 11/19/2024 11:30 AM EST Treatment [facility] [address] [place] [address] Chapo Bauman, PT [address] [place] [address] [facility] Start: 11-16-2024 End: 11-16-2024 ambulatory 11/16/2024 11:00 AM EST Treatment [facility] [address] [place] [address] Janelle Curtis, INFORMATION TECHNOLOGY INTERN [facility] Start: 11-14-2024 End: 11-14-2024 ambulatory 11/14/2024 11:30 AM EST Treatment [facility] [address] [place] [address] Janelle Curtis, INFORMATION TECHNOLOGY INTERN [facility] Start: 11-12-2024 End: 11-12-2024 ambulatory 11/12/2024 11:30 AM EST Treatment [facility] [address] [place] [address] Kyaw Valdovinos, INFORMATION TECHNOLOGY INTERN [facility] Start: 11-09-2024 End: 11-09-2024 ambulatory 11/09/2024 12:00 PM EST Treatment [facility] [address] [place] [address] Chapo Bauman, PT [address] [place] [address] [facility] Start: 11-07-2024 End: 11-07-2024 ambulatory 11/07/2024 11:30 AM EST Treatment [facility] [address] [place] [address] Janelle Curtis PTA [facility] Start: 11-06-2024 End: 11-06-2024 Patient encounter procedure 11/06/2024 1:00 PM EST Office Visit [facility] [address] [place] [id number] Omari Shirley, [address] [place] [address] [facility] Start: 11-05-2024 End: 11-05-2024 ambulatory 11/05/2024 12:30 PM EST Treatment [facility] [address] [place] [address] Kyaw Valdovinos PTA [facility] Start: 11-05-2024 End: 11-05-2024 Patient encounter procedure 11/05/2024 10:15 AM EST Office Visit [facility] [address] [place] [address] Kizzy Herrera, PA [address] [address] [facility] Start: 11-02-2024 End: 11-02-2024 ambulatory 11/02/2024 11:30 AM EST Treatment [facility] [address] [place] [address] Chapo Bauman, PT [address] [place] [address] [facility] Start: 10-31-2024 End: 10-31-2024 ambulatory 10/31/2024 11:30 AM EST Treatment [facility] [address] [place] [phone] Janelle Curtis, RODRI [facility] Start: 10-29-2024 End: 10-29-2024 ambulatory 10/29/2024 1:00 PM EST Treatment [facility] [address] [place] [address] Chapo Bauman, PT [address] [place] [address] [facility] Start: 10-25-2024 End: 10-25-2024 ambulatory 10/25/2024 10:30 AM EST Treatment [facility] [address] [place] [address] Shakira Loera, INFORMATION TECHNOLOGY INTERN [address] [place] [address] [facility] Start: 10-22-2024 End: 10-22-2024 ambulatory 10/22/2024 5:00 PM EST Evaluation [facility] [address] [place] [address] Chapo Bauman, PT [address] [place] [address] Degeneration of intervertebral disc of lumbosacral region with discogenic back pain (Primary Dx); Chronic right-sided low back pain with right-sided sciatica; Degeneration of intervertebral disc of lumbosacral region with discogenic back pain and lower extremity pain [facility] Comment on above: Degeneration of inte rvertebral disc of lumbosacral region with discogenic back pain (Primary Dx); Chronic right-sided low back pain with right-sided sciatica; Degeneration of intervertebral disc of lumbosacral region with discogenic back pain and lower extremity pain Start: 10-10-2024 End: 10-10-2024 Patient encounter procedure 10/10/2024 10:30 AM EST Office Visit [facility] [address] [phone] Kizzy Herrera PA [address] [place] [facility] [address] Arrived [facility] Comment on above: Arrived Start: 08-17-2024 PAP TESTING PAP TESTING [facility] Start: 05-27-2024 Covid-19 Vaccine ( season) Covid-19 Vaccine () [facility] Start: 05-27-2024 Influenza vaccination Influenza Vacc ine (#1) [facility] Start: 04-23-2024 Urine microalbumin profile DTaP,Tdap,Td Vaccine (2 - Td or Tdap) [facility] Start: 11-03-2023 Screening for malign ant neoplasm of cervix Cervical Cancer Screening [facility] Start: 09-26-2023 [facility] Start: 05-27-2023 Covid-19 Vaccine () Covid-19 Vaccine () [facility] Start: 05-27-2023 Influenza vaccination Influenza Vacc ine (#1) [facility] Start: 09-26-2022 [facility] Start: 09-02-2022 HPV TESTING HPV TESTING [facility] Start: 05-27-2022 Influenza vaccination INFLUENZA (#1) [facility] Start: 08-16-2021 COVID-19 VACCINE (3 - Booster for Pfizer series) COVID-19 VACCINE (3 - Booster for Pfizer series) [facility] Start: 01-08-2021 Diabetes Screening Diabetes Screenin g [facility] Start: 2020 SHINGRIX VACCINE (1 of 2) SHINGRIX VACCINE (1 of 2) [facility] Start: 12-02-2019 DIABETES SCREEN DIABETES SCREEN [facility] Start: 2015 COLOGUARD (FIT-DNA) COLOGUARD (FIT-D NA) [facility] Start: 2015 Colonoscopy COLONOSCOPY [facility] Start: 2015 COLORECTAL CANCER SCREENING COLORECTAL CANCER SCREENING [facility] Start: [address] COLONOGRAPHY [facility] Start: 2015 FECAL OCCULT BLOOD FECAL OCCULT BLOO D [facility] Start: 2015 Lipid panel Lipid Screening [facility] Start: 2015 LIPID SCREEN LIPID SCREEN [facility] Start: 2015 Screening for malign ant neoplasm of colon [facility] Start: 2015 SIGMOIDOSCOPY SIGMOIDOSCOPY [facility] Start: 2010 Mammography MAMMOGRAM [facility] Start: 2010 Screening for malign ant neoplasm of breast [facility] Start: 2000 Zoledronic acid therapy ALPHA- 1 ANTITRYPSIN DEFICIENCY SCREENING [facility] Start: 1989 Hepatitis B Vaccine (1 of 3 - 19+ 3-dose series) Hepatitis B Vaccine (1 of 3 - 19+ 3-dose series) [facility] Start: 1989 Pneumococcal Vaccine : 50+ (1 of 2 - PCV) Pneumococcal Vaccine: 50+ (1 of 2 - PCV) [facility] Start: 1989 Urine microalbumin profile DTAP,TDAP,TD (1 - Tdap) [facility] Start: 1988 ANNUAL PCP TEAM RETURNER SAMIRA DISEASE VISIT ANNUAL PCP TEAM CHRONIC DISEASE VISIT [facility] Start: 1988 Anxiety Screening Anxiety Screening [facility] Start: 1988 Depression Screening Depression Scre ening [facility] Start: 1988 HEPATITIS C SCREENING HEPATITIS C [facility] Start: 1988 Hepatitis C screening Hepatitis C [facility] Start: 1988 HIV SCREENING HIV SCREENING [facility] Start: 1988 HIV screening HIV Screening [facility] Start: 1988 SPIROMETRY SPIROMETRY [facility] Start: 1976 PNEUMOCOCCAL (1 - PCV) PNEUMOCOCCAL (1 - PCV) [facility] Start: 1976 Pneumococcal vaccination Pneum ococcal Vaccine (1 of 2 - PCV) [facility] Start: 1970 HEPATITIS B (1 of 3 - 3-dose series) HEPATITIS B (1 of 3 - 3-dose series) [facility] Start: 1970 Hepatitis B Vaccine (1 of 3 - 3-dose series) Hepatitis B Vaccine (1 of 3 - 3-dose series) [facility] Start: 1970 Screening for malign ant neoplasm of colon [facility] BLOOD CULTURE 1 BLOOD CULTURE 1 Lab Routine 10/27/2024 3:36 PM EST [facility] [employer] Work Phone: BLOOD CULTURE 2 BLOOD CULTURE 2 Lab Routine 10/27/2024 3:38 PM [facility] PAP FLUID CERVICAL SCREENING PAP FLUID CERVICAL SCREENING Lab Routine History of cervical cancer Encounter for follow-up surveillance of cervical cancer 11/03/2022 11:14 AM EST [facility] Work Phone: [facility] Immunizations Immunization Date Immunization Notes Care Provider Fa cili 06-21-2021 SARS-CoV-2 (COVID-19 ) mRNA BNT-162b2 vax Adeline Gudimella [facility] 05-14-2021 SARS-CoV-2 (COVID-19 ) mRNA BNT-162b2 vax Adeline Gudimella [facility] 04-23-2014 tetanus toxoid, reduced diphtheria toxoid, and acellular pertussis vaccine, adsorbed Adeline Gudimella [facility] NEGATED: Highlighted row has not occurred!09-07-2024 influenza virus vaccine, unspecified formulation Brigitte Garcia [facility] NEGATED: Highlighted row has not occurred!10-12-2022 influenza virus vaccine, unspecified formulation Muriel BROOKS [facility] NEGATED: Highlighted row has not occurred!01-19-2021 SARS-CoV-2 (COVID-19) mRNA-1273 vaccine Adeline Gudimella [facility] NEGATED: Highlighted row has not occurred!10-21-2020 influenza virus vaccine, unspecified formulation Adeline Gudimella [facility] Payers Date Payer Category Payer Unknown [id number] 2023 Self-pay 2023 Private Health Insurance [facility] MEDICAID [id number] 2023 Unknown [id number] 2022 Medicaid [id number] 2022 Medicaid (Managed Care) [facility] MEDICAID [id number] 2014 Unknown [id number] 1970 Unknown [id number] 2.16.840.1.209670.3.579.2. 1970 Unknown [id number] 2.16.840.1.487106.3.579.2. 1970 Unknown [id number] 2.16.840.1.353690.3.579.2. 1970 Unknown [id number] 2.16.840.1.804062.3.579.2. 1970 Unknown [id number] 2.16.840.1.505475.3.579.2. 1970 Unknown [id number] 2.16.840.1.967990.3.579.2. 1970 Unknown [id number] 2.16.840.1.271268.3.579.2. 1970 Unknown [id number] 2.16.840.1.236751.3.579.2 1970 Unknown [id number] 2.16.840.1.539684.3.579.2 1970 Unknown [id number] 2.16.840.1.681345.3.579.2 1970 Unknown [id number] 2.16.840.1.240687.3.579.2 1970 Unknown [id number] 2.16.840.1.522509.3.579.2 1970 Unknown [id number] 2.16.840.1.955513.3.579.2 1970 Unknown [id number] 2.16.840.1.992411.3.579.2 1970 Unknown [id number] 2.16.840.1.825812.3.579. 1970 Unknown [id number] 2.16.840.1.191210.3.579.2 1970 Unknown [id number] 2.16.840.1.604769.3.579.2 1970 Unknown [id number] 2.16.840.1.039675.3.579.2 1970 Unknown [id number] 2.16.840.1.982578.3.579.2 1970 Unknown [id number] 2.16.840.1.343076.3.579.2 1970 Unknown [id number] 2.16.840.1.713180.3.579.2 1970 Unknown [id number] 2.16.840.1.300605.3.579.2 1970 Unknown [id number] 2.16.840.1.214691.3.579.2 1970 Unknown [id number] 2.16.840.1.860272.3.579.2. 1970 Unknown [id number] 2.16.840.1.877706.3.579.2 1970 Unknown [id number] 2.16.840.1.286641.3.579.2 1970 Unknown [id number] 2.16.840.1.048338.3.579.2 1970 Unknown [id number] 2.16.840.1.845840.3.579.2 1970 Unknown [id number] 2.16.840.1.732997.3.579.2 1970 Unknown [id number] 2.16.840.1.854631.3.579.2 1970 Unknown [id number] 2.16.840.1.236959.3.579.2 1970 Unknown [id number] 2.16.840.1.054141.3.579.2 1970 Unknown [id number] 2.16.840.1.040763.3.579.2 1970 Unknown [id number] 2.16.840.1.324158.3.579.2 1970 Unknown [id number] 2.16.840.1.073336.3.579.2 1970 Unknown [id number] 2.16.840.1.750214.3.579.2 1970 Unknown [id number] 2.16.840.1.348962.3.579.2 1970 Unknown [id number] 2.16.840.1.237470.3.579.2 1970 Unknown [id number] 2.16.840.1.125857.3.579.2 1970 Unknown [id number] 2.16.840.1.991666.3.579.2 1970 Unknown [id number] 2.16.840.1.895255.3.579.2 1970 Unknown [id number] 2.16.840.1.818673.3.579.2 1970 Unknown [id number] 2.16.840.1.178926.3.579.2 1970 Unknown [id number] 2.16.840.1.869536.3.579.2 1970 Unknown [id number] 2.16.840.1.529384.3.579. 1970 Unknown [id number] 2.16.840.1.850367.3.579.21258 1970 Unknown [id number] 2.16840.1.343796.3.579.21258 1970 Unknown [id number] 2.16.840.1.121962.3.579. 1970 Unknown [id number] 2.16.840.1.879763.3.579. 1970 Unknown [id number] 2.16.840.1.410301.3.579.2 1970 Unknown [id number] 2.16.840.1.400604.3.579.2 1970 Unknown [id number] 2.16.840.1.656066.3.579.2 1970 Unknown [id number] 2.16.840.1.464728.3.579.2 1970 Unknown [id number] 2.16.840.1.259192.3.579.2 1970 Unknown [id number] 2.16.840.1.776991.3.579.2 1970 Unknown [id number] 2.16.840.1.739384.3.579.2. 1970 Unknown [id number] 2.16.840.1.333144.3.579.2 1970 Unknown [id number] 2.16.840.1.270900.3.579.2. 1970 Unknown [id number] 2.16.840.1.143517.3.579.2 1970 Unknown [id number] 2.16.840.1.095057.3.579.2 1970 Unknown [id number] 2.16.840.1.338540.3.579.2 1970 Unknown [id number] 2.16.840.1.162382.3.579.2 1970 Unknown [id number] 2.16.840.1.820291.3.579.2 1970 Unknown [id number] 2.16.840.1.429427.3.579.2 1970 Unknown [id number] 2.16.840.1.985629.3.579.2 1970 Unknown [id number] 2.16.840.1.234699.3.579.2 1970 Unknown [id number] 2.16.840.1.785725.3.579.2 1970 Unknown [id number] 2.16.840.1.996675.3.579.2 1970 Unknown [id number] 2.16.840.1.606033.3.579.2 1970 Unknown [id number] 2.16.840.1.172185.3.579.2 1970 Unknown [id number] 2.16.840.1.969290.3.579.2 1970 Unknown [id number] 2.16.840.1.714387.3.579.2. 727 1970 Unknown [id number] 2.16.840.1.656261.3.579.2. 727 1970 Unknown [id number] 2.16.840.1.799788.3.579.2. 727 1970 Unknown [id number] 2.16.840.1.573463.3.579.2. 727 Social History Date Type Detail Facility Start: 06-11-2021 End: 12-08-2023 Tobacco smoking status Ex-smoker (finding) [facility] Start: 12-02-2022 End: 10-10-2024 Sex Assigned At Female [facility] Start: 06-15-2022 End: 06-13-2025 Tobacco smoking status Light tobacco smoker (finding) [facility] Comment on above: pt states 1 cig per day pt states one cigare tteevery now and then Tobacco smoking status Never [facility] Comment on above: pt states 1 cig per day Patient states she s mokes but not often...only once in a while pt states one cigare tteevery now and then Start: 11-03-2022 Tobacco smoking stat us NHIS Occasional tobacco smoker [facility] History of tobacco use Cigarette Smoker [facility] Start: 11-03-2022 End: 10-10-2024 Cigarettes smoked current (pack per day) - Reported 0.5 [facility] Start: 11-03-2022 End: 10-10-2024 Tobacco use and exposure Smokeless tobacco non-user [facility] Start: 11-03-2022 End: 12-02-2022 Alcohol intake Current drinker of alcohol (finding) [facility] Start: 11-03-2022 Tobacco Comment currently occa sional 1-2 cigs, not daily [facility] Start: 11-16-2016 Alcohol Comment social-rare [facility] Start: 1970 Sex Assigned At Not on file [facility] Start: 01-04-2024 Tobacco smoking status Smoker (findi ng) [facility] Comment on above: Patient states she s mokes but not often...only once in a while Start: 03-09-2024 Tobacco smoking status Heavy t obacco smoker (finding) [facility] Start: 10-10-2024 [facility] Start: 10-10-2024 Alcoholic beverage intake Life time non-drinker (finding) [facility] Healthcare Sexual Orientation [facility] Start: 12-14-2018 Sex Female (finding) [facility] Functional Status Date Assessment Result Facility 02-17-2025 Functional Status N/A [facility] 12-06-2024 Functional Status N/A [facility] 12-04-2024 Functional Status N/A [facility] 11-01-2024 Functional Status N/A [facility] 10-24-2024 Functional Status N/A [facility] 10-14-2024 Functional Status N/A [facility] 09-07-2024 Functional Status N/A [facility] 08-24-2024 Functional Status N/A [facility] 08-15-2024 Functional Status N/A [facility] 07-12-2024 Functional Status N/A [facility] 06-08-2024 Functional Status N/A [facility] 06-03-2024 Functional Status N/A [facility] 05-05-2024 Functional Status N/A [facility] 04-09-2024 Functional Status N/A [facility] 04-09-2024 Functional Status N/A [facility] 03-19-2024 Functional Status N/A [facility] 03-11-2024 Functional Status N/A [facility] 03-09-2024 Functional Status N/A [facility] 03-04-2024 Functional Status N/A [facility] 01-04-2024 Functional Status N/A [facility] 12-25-2023 Functional Status N/A [facility] 12-23-2023 Functional Status N/A [facility] 12-12-2023 Functional Status N/A [facility] 12-08-2023 Functional Status N/A [facility] 11-26-2023 Functional Status N/A [facility] 11-14-2023 Functional Status N/A [facility] 10-03-2023 Functional Status N/A [facility] 10-02-2023 Functional Status N/A [facility] 03-22-2023 Functional Status N/A [facility] 01-06-2023 Functional Status N/A [facility] 11-23-2022 Functional Status N/A [facility] 10-12-2022 Functional Status N/A [facility] 06-02-2022 Functional Status Yes [facility] Clinical Notes 06-02-2022 to 06-12-2025 Telephone Encounter - [facility] [place] - 04/04/2025 3:57 PM EDTTelephone Encounter - [facility] - 04/04/2025 3:57 PM EDT Note Date & Type Note Facility 06-12-2025 Note ED Patient Education Note Infectious Disease Viral Illness, Adult Viruses are tiny germs that can get into a person's body and cause illness. There are many different types of viruses. And they cause many types of illness. Viral illnesses can range from mild to severe. They can affect various parts of the body. Short-term conditions that are caused by a virus include colds and flu (influenza) and stomach viruses. Long-term conditions that are caused by a virus include herpes, shingles, and human immunodeficiency virus (HIV) infection. A few viruses have been linked to certain cancers. What are the causes? Many types of viruses can cause illness. Viruses get into cells in your body, multiply, and cause the infected cells to work differently or . When these cells , they release more of the virus. When this happens, you get symptoms of the illness and the virus spreads to other cells. If the virus takes over how the cell works, it can cause the cell to divide and grow out of control. This happens when a virus causes cancer. Different viruses get into the body in different ways. You can get a virus by: ??? Swallowing food or water that has come in contact with the virus. ??? Breathing in droplets that have been coughed or sneezed into the air by an infected person. ??? Touching a surface that has the virus on it and then touching your eyes, nose, or mouth. ??? Being bitten by an insect or animal that carries the virus. ??? Having sexual contact with a person who is infected with the virus. ??? Being exposed to blood or fluids that contain the virus, either through an open cut or during a transfusion. If a virus enters your body, your body's disease-fighting system (immune system) will try to fight the virus. You may be at higher risk for a viral illness if your immune system is weak. What are the signs or symptoms? Symptoms depend on the type of virus and the location of the cells that it gets into. Symptoms can include: ??? For cold and flu viruses: ? Fever. ? Headache. ? Sore throat. ? Muscle aches. ? Stuffy nose (nasal congestion). ? Cough. ??? For stomach (gastrointestinal) viruses: ? Fever. ? Pain in the abdomen. ? Nausea or vomiting. ? Diarrhea. ??? For liver viruses (hepatitis): ? Loss of appetite. ? Feeling tired. ? Skin or the white parts of your eyes turning yellow (jaundice). ??? For brain and spinal cord viruses: ? Fever. ? Headache. ? Stiff neck. ? Nausea and vomiting. ? Confusion or being sleepy. ??? For skin viruses: ? Warts. ? Itching. ? Rash. ??? For sexually transmitted viruses: ? Discharge. ? Swelling. ? Redness. ? Rash. How is this diagnosed? This condition may be diagnosed based on one or more of these: ??? Your symptoms and medical history. ??? A physical exam. ??? Tests, such as: ? Blood tests. ? Tests on a sample of mucus from your lungs (sputum sample). ? Tests on a poop (stool) sample. ? Tests on a swab of body fluids or a skin sore (lesion). How is this treated? Viruses can be hard to treat because they live within cells. Antibiotics do not treat viruses because these medicines do not get inside cells. Treatment for a viral illness may include: ??? Resting and drinking a lot of fluids. ??? Medicines to treat symptoms. These can include qstd-xps-dgpnqpj medicine for pain and fever, medicines for cough or congestion, and medicines for diarrhea. ??? Antiviral medicines. These medicines are available only for certain types of viruses. Some viral illnesses can be prevented with vaccinations. A common example is the flu shot. Follow these instructions at home: Medicines ??? Take btur-ink-gjrdsde and prescription medicines only as told by your health care provider. ??? If you were prescribed an antiviral medicine, take it as told by your provider. Do not stop taking the antiviral even if you start to feel better. ??? Know when antibiotics are needed and when they are not needed. Antibiotics do not treat viruses. You may get an antibiotic if your provider thinks that you may have, or are at risk for, a bacterial infection and you have a viral infection. ? Do not ask for an antibiotic prescription if you have been diagnosed with a viral illness. Antibiotics will not make your illness go away faster. ? Taking antibiotics when they are not needed can lead to antibiotic resistance. When this develops, the medicine no longer works against the bacteria that it normally fights. General instructions ??? Drink enough fluids to keep your pee (urine) pale yellow. ??? Rest as much as possible. ??? Return to your normal activities as told by your provider. Ask your provider what activities are safe for you. How is this prevented? To lower your risk of getting another viral illness: ??? Wash your hands often with soap and water for at least 20 seconds. If soap and water are not available, use hand power tool repairer. ??? (more content not included)... [facility] 05-29-2025 Hospital Discharg e instructions Follow Up Care 05/29/2025 08:48:47 With:Elayne Sanchez Address: When:Within 1 Month(s) [facility] 05-29-2025 Hospital Discharg e instructions Follow Up Care 05/29/2025 08:45:57 With:Tahir BUNN, Leon Jones, SOFIA, MED Address: [address], [address] [facility] [address] [place] [address]- [phone] When:Within 4 Month(s) Comments:follow up/wt management [facility] 05-25-2025 Note ED Patient Education Note Infectious Disease Upper Respiratory Infection, Adult An upper respiratory infection (URI) affects the nose, throat, and upper airways that lead to the lungs. The most common type of URI is often called the common cold. URIs usually get better on their own, without medical treatment. What are the causes? A URI is caused by a germ (virus). You may catch these germs by: ??? Breathing in droplets from an infected person's cough or sneeze. ??? Touching something that has the germ on it (is contaminated) and then touching your mouth, nose, or eyes. What increases the risk? You are more likely to get a URI if: ??? You are very young or very old. ??? You have close contact with others, such as at work, school, or a health care facility. ??? You smoke. ??? You have long-term (chronic) heart or lung disease. ??? You have a weakened disease-fighting system (immune system). ??? You have nasal allergies or asthma. ??? You have a lot of stress. ??? You have poor nutrition. What are the signs or symptoms? Runny or stuffy (congested) nose. ??? Cough. ??? Sneezing. ??? Sore throat. ??? Headache. ??? Feeling tired (fatigue). ??? Fever. ??? Not wanting to eat as much as usual. ??? Pain in your forehead, behind your eyes, and over your cheekbones (sinus pain). ??? Muscle aches. ??? Redness or irritation of the eyes. ??? Pressure in the ears or face. How is this treated? URIs usually get better on their own within 7?10 days. Medicines cannot cure URIs, but your doctor may recommend certain medicines to help relieve symptoms, such as: ??? Edip-njj-lqvtard cold medicines. ??? Medicines to reduce coughing (cough suppressants). Coughing is a type of defense against infection that helps to clear the nose, throat, windpipe, and lungs (respiratory system). Take these medicines only as told by your doctor. ??? Medicines to lower your fever. Follow these instructions at home: Activity ??? Rest as needed. ??? If you have a fever, stay home from work or school until your fever is gone, or until your doctor says you may return to work or school. ? You should stay home until you cannot spread the infection anymore (you are not contagious). ? Your doctor may have you wear a face mask so you have less risk of spreading the infection. Relieving symptoms ??? Rinse your mouth often with salt water. To make salt water, dissolve ??1 tsp (3?6 g) of salt in 1 cup (237 mL) of warm water. ??? Use a cool-mist humidifier to add moisture to the air. This can help you breathe more easily. Eating and drinking ??? Drink enough fluid to keep your pee (urine) pale yellow. ??? Eat soups and other clear broths. General instructions ??? Take svku-yho-itjrwob and prescription medicines only as told by your doctor. ??? Do not smoke or use any products that contain nicotine or tobacco. If you need help quitting, ask your doctor. ??? Avoid being where people are smoking (avoid secondhand smoke). ??? Stay up to date on all your shots (immunizations), and get the flu shot every year. ??? Keep all follow-up visits. How to prevent the spread of infection to others ??? Wash your hands with soap and water for at least 20 seconds. If you cannot use soap and water, use hand power tool repairer. ??? Avoid touching your mouth, face, eyes, or nose. ??? Cough or sneeze into a tissue or your sleeve or elbow. Do not cough or sneeze into your hand or into the air. Contact a doctor if: ??? You are getting worse, not better. ??? You have any of these: ? A fever or chills. ? Brown or red mucus in your nose. ? Yellow or brown fluid (discharge)coming from your nose. ? Pain in your face, especially when you bend forward. ? Swollen neck glands. ? Pain when you swallow. ? White areas in the back of your throat. Get help right away if: ??? You have shortness of breath that gets worse. ??? You have very bad or constant: ? Headache. ? Ear pain. ? Pain in your forehead, behind your eyes, and over your cheekbones (sinus pain). ? Chest pain. ??? You have long-lasting (chronic) lung disease along with any of these: ? Making high-pitched whistling sounds when you breathe, most often when you breathe out (wheezing). ? Long-lasting cough (more than 14 days). ? Coughing up blood. ? A change in your usual mucus. ??? You have a stiff neck. ??? You have changes in your: ? Vision. ? Hearing. ? Thinking. ? Mood. These symptoms may be an emergency. Get help right away. Call 911. ??? Do not wait to see if the symptoms will go away. ??? Do not drive yourself to the hospital. Summary ??? An upper respiratory infection (URI) is caused by a germ (virus). The most common type of URI is often called the common cold. ??? URIs usually get better within 7?10 days. ??? Take ohmj-fer-hncmwxp and prescrip (more content not included)... [facility] 05-07-2025 Note ED Patient Education Note Neurology Chronic Migraine Headache A migraine is a type of headache that is usually stronger and more sudden than other headaches. This type of headache feels like an intense pulsing or throbbing pain that is usually felt on one side of the head. It may also cause other symptoms, such as nausea, vomiting, and sensitivity to light and noise. A migraine is called a chronic migraine if it happens at least 15 days in a month for more than 3 months. Talk with your health care provider about what things may bring on (trigger) your migraines. What are the causes? The exact cause is not known. However, a migraine may be caused when nerves in the brain become irritated and release chemicals that cause blood vessels to become inflamed. This inflammation causes pain. Migraines may be triggered or caused by: ??? Smoking. ??? Medicines, such as control pills or some blood pressure medicines. ??? Foods or drinks that contain nitrates, glutamate, aspartame, MSG, or tyramine. ??? Certain foods or drinks, such as aged cheeses, chocolate, alcohol, or caffeine. Other triggers may include: ??? Menstruation. ??? Emotional stress. ??? Getting too much or too little sleep. ??? Tiredness (fatigue). ??? Bright lights or loud noises. ??? Certain smells. ??? Weather changes and high altitude. What increases the risk? The following factors may make you more likely to have chronic migraines: ??? Having migraines or a family history of migraines. ??? Having a mental health condition, such as depression or anxiety. ??? Taking a lot of pain medicine. ??? Having sleep problems. ??? Having heart disease, diabetes, or obesity. What are the signs or symptoms? Symptoms of a migraine vary for each person. The pain may: ??? Be pulsing or throbbing. ??? Happen on one side of the head. In some cases, the pain may be on both sides of the head or around the head or neck. ??? Be so bad that it prevents you from doing daily activities. ??? Get worse with physical activity. ??? Cause nausea, vomiting, or both. ??? Get worse around bright lights, loud noises, or smells. ??? Cause dizziness. A sign that your migraines are becoming chronic is when you start to have more and more migraine episodes. How is this diagnosed? Chronic migraines are often diagnosed based on: ??? Your symptoms and medical history. ??? A physical exam. You may also have tests, including: ??? A CT scan or an MRI of your brain. These tests can help to rule out other causes of your headaches. ??? Taking fluid from the spine (lumbar puncture) to examine it (cerebrospinal fluid analysis, or CSF analysis). ??? Blood tests. How is this treated? Chronic migraines are treated with medicines that: ??? Lessen pain and nausea. ??? Prevent migraines. Treatment may also include: ??? Acupuncture. ??? Lifestyle changes, such as changes to your diet or sleep schedule. ??? Learning ways to control your body and breathing (biofeedback) and relaxation training. ??? Talk therapy to help you know and deal with negative thoughts (cognitive behavioral therapy). ??? Using a device that provides electrical stimulation to your nerves, which can relieve pain (neuromodulation therapy). ??? Injection of medicine into the muscles of the face or head. ??? Surgery, if the other treatments do not work. Follow these instructions at home: Medicines ??? Take kxgj-azz-mocecyw and prescription medicines only as told by your provider. ??? Ask your provider if the medicine prescribed to you requires you to avoid driving or using machinery. Lifestyle ??? Do not drink alcohol. ??? Do not use any products that contain nicotine or tobacco. These products include cigarettes, chewing tobacco, and vaping devices, such as e-cigarettes. If you need help quitting, ask your provider. ??? Get 7-9 hours of sleep every night, or the amount of sleep recommended by your provider. ??? Find ways to manage stress, such as meditation, deep breathing, or yoga. ??? Maintain a healthy weight. If you need help losing weight, ask your provider. ??? Exercise regularly. Aim for 150 minutes of moderate-intensity exercise, such as walking, biking, or yoga, or 75 minutes of vigorous exercise each week. Vigorous exercise includes running, circuit training, and swimming. General instructions ??? Keep a journal to find out what triggers your migraines so you can avoid those things. For example, write down: ? What you eat and drink. ? How much sleep you get. ? Any change to your diet or medicines. ??? If you have a migraine headache: ? Lie down in a dark, quiet room. ? Try placing a cool towel over your head. ? Keep lights dim if bright lights bother you or make your migraine worse. Where to find more information ??? Coalition for Headache and Migraine Patients (CHAMP): headachemigraine.org ??? [place] [employer]: filipino (more content not included)... [facility] 04-15-2025 Note ED Patient Education Note Mental and Behavioral Health Chronic Pain, Adult Chronic pain is a type of pain that lasts or keeps coming back for at least 3?6 months. You may have headaches, pain in the abdomen, or pain in other areas of the body. Chronic pain may be related to an illness, injury, or a health condition. Sometimes, the cause of chronic pain is not known. Chronic pain can make it hard for you to do daily activities. If it is not treated, chronic pain can lead to anxiety and depression. Treatment depends on the cause of your pain and how severe it is. You may need to work with a pain specialist to come up with a treatment plan. Many people benefit from two or more types of treatment to control their pain. Follow these instructions at home: Treatment plan Follow your treatment plan as told by your health care provider. This may include: ??? Gentle, regular exercise. ??? Eating a healthy diet that includes foods such as vegetables, fruits, fish, and lean meats. ??? Mental health therapy (cognitive or behavioral therapy) that changes the way you think or act in response to the pain. This may help improve how you feel. ??? Doing physical therapy exercises to improve movement and strength. ??? Meditation, yoga, acupuncture, or massage therapy. ??? Using the oils from plants in your environment or on your skin (aromatherapy). Other treatments may include: ??? Ddas-yuz-btqkdkv or prescription medicines. ??? Color, light, or sound therapy. ??? Local electrical stimulation. The electrical pulses help to relieve pain by temporarily stopping the nerve impulses that cause you to feel pain. ??? Injections. These deliver numbing or pain-relieving medicines into the spine or the area of pain. Medicines ??? Take mxyd-voi-rnhyelc and prescription medicines only as told by your health care provider. ??? Ask your health care provider if the medicine prescribed to you: ? Requires you to avoid driving or using machinery. ? Can cause constipation. You may need to take these actions to prevent or treat constipation: ? Drink enough fluid to keep your urine pale yellow. ? Take yplp-msk-dvpppcl or prescription medicines. ? Eat foods that are high in fiber, such as beans, whole grains, and fresh fruits and vegetables. ? Limit foods that are high in fat and processed sugars, such as fried or sweet foods. Lifestyle ??? Ask your health care provider whether you should keep a pain diary. Your health care provider will tell you what information to write in the diary. This may include: ? When you have pain. ? What the pain feels like. ? How medicines and other behaviors or treatments help to reduce the pain. ??? Consider talking with a mental health care provider about how to help manage chronic pain. ??? Consider joining a chronic pain support group. ??? Try to control or lower your stress levels. Talk with your health care provider about ways to do this. General instructions ??? Learn as much as you can about how to manage your chronic pain. Ask your health care provider if an intensive pain rehabilitation program or a chronic pain specialist would be helpful. ??? Check your pain level as told by your health care provider. Ask your health care provider if you should use a pain scale. Contact a health care provider if: ??? Your pain is not controlled with treatment. ??? You have new pain. ??? You have side effects from pain medicine. ??? You feel weak or you have trouble doing your normal activities. ??? You have trouble sleeping or you develop confusion. ??? You lose feeling or have numbness in your body. ??? You lose control of your bowels or bladder. Get help right away if: ??? Your pain suddenly gets much worse. ??? You develop chest pain. ??? You have trouble breathing or shortness of breath. ??? You faint, or another person sees you faint. These symptoms may be an emergency. Get help right away. Call 911. ??? Do not wait to see if the symptoms will go away. ??? Do not drive yourself to the hospital. Also, get help right away if: ??? You have thoughts about hurting yourself or others. Take one of these steps if you feel like you may hurt yourself or others, or have thoughts about taking your own life: ??? Go to your nearest emergency room. ??? Call 911. ??? Call the National Suicide Prevention Lifeline at or 862. This is open 24 hours a day. ??? Text the Crisis Text Line at 265799. This information is not intended to replace advice given to you by your health care provider. Make sure you discuss any questions you have with your health care provider. Document Revised: 05/04/2023 Document Reviewed: 04/06/2023 [employer] Patient Education ? 2023 [employer] [facility] 04-04-2025 Telephone encounter Note Jana came to the office 04/02/25 after a [place] [facility] Was told she had a pelvic fx and needed to be seen by the configuration consultant doctor which was Dr. Pittman. I put up the yellow note and noted her past visits and n/s including this fx. JAB/TDH both stated to follow up with PCP for this moving fwd. Called patient 04/04/25 to let her know, she was confused and a little upset on why we wouldn't see her. I explained to her the reasoning and told her she could also follow up with [facility] (due to her 2nd opinion she went for in Oct.) She wasn't happy with this and I then asked if she would like to leave a message for the front office specialist and declined to do so. [facility] 04-04-2025 Miscellaneous Notes Jana came to the office 04/02/25 after a visit [place] [facility] Was told she had a pelvic fx and needed to be seen by the configuration consultant doctor which was Dr. Pittman. I put up the yellow note and noted her past visits and n/s including this fx. JONO/JESSY both stated to follow up with PCP for this moving fwd. Called patient 04/04/25 to let her know, she was confused and a little upset on why we wouldn't see her. I explained to her the reasoning and told her she could also follow up with [facility] (due to her 2nd opinion she went for in Oct.) She wasn't happy with this and I then asked if she would like to leave a message for the front office specialist and declined to do so. documented in this encounter [facility] 04-03-2025 Note Patient Education Gastroenterology Colitis Colitis is a condition in which the colon is inflamed. It can cause diarrhea, blood in the stool, and abdominal pain. Colitis can last a short time (be acute), or it may last a long time (become chronic). What are the causes? This condition may be caused by: ??? Infections from viruses or bacteria. ??? A reaction to medicine. ??? Certain autoimmune diseases, such as Crohn's disease or ulcerative colitis. ??? Radiation treatment. ??? Decreased blood flow to the bowel (ischemia). What are the signs or symptoms? Symptoms of this condition include: ??? Diarrhea, blood in the stool, or black, tarry stool. ??? Pain in the joints or abdominal pain. ??? Fever or fatigue. ??? Vomiting. ??? Weight loss. ??? Bloating. ??? Having fewer bowel movements than usual. ??? A strong and sudden urge to have a bowel movement. ??? Feeling like the bowel is not empty after a bowel movement. How is this diagnosed? This condition may be diagnosed based on a stool test and a blood test. You may also have other tests, such as: ??? X-rays. ??? CT scan. ??? Colonoscopy. ??? Endoscopy. ??? Biopsy. How is this treated? Treatment for this condition depends on the cause. This condition may be treated with: ??? Steps to rest the bowel, such as not eating or drinking for a period of time. ??? Fluids that are given through an IV. ??? Medicine for pain and diarrhea. ??? Antibiotic medicines. ??? Cortisone medicines. ??? Surgery. Follow these instructions at home: Eating and drinking ??? Follow instructions from your health care provider about eating or drinking restrictions. ??? Drink enough fluid to keep your urine pale yellow. ??? Work with a dietitian to determine whether certain foods cause your condition to flare up. ??? Avoid foods or drinks that cause flare-ups. ??? Eat a well-balanced diet. General instructions ??? If you were prescribed an antibiotic medicine, take it as told by your health care provider. Do not stop taking the antibiotic even if you start to feel better. ??? Take riym-gaw-myerwar and prescription medicines only as told by your health care provider. ??? Keep all follow-up visits. This is important. Contact a health care provider if: ??? Your symptoms do not go away. ??? You develop new symptoms. Get help right away if: ??? You have a fever that does not go away with treatment. ??? You develop chills. ??? You have extreme weakness, fainting, or dehydration. ??? You vomit repeatedly. ??? You develop severe pain in your abdomen. ??? You pass bloody or tarry stool. Summary ??? Colitis is a condition in which the colon is inflamed. Colitis can last a short time (be acute), or it may last a long time (become chronic). ??? Treatment for this condition depends on the cause and may include resting the bowel, taking medicines, or having surgery. ??? If you were prescribed an antibiotic medicine, take it as told by your health care provider. Do not stop taking the antibiotic even if you start to feel better. ??? Get help right away if you develop severe pain in your abdomen. ??? Keep all follow-up visits. This is important. This information is not intended to replace advice given to you by your health care provider. Make sure you discuss any questions you have with your health care provider. Document Revised: 05/19/2021 Document Reviewed: 05/19/2021 [employer] Patient Education ? 2023 [employer] Abdominal Pain, Adult Many things can cause belly (abdominal) pain. In most cases, belly pain is not a serious problem and can be watched and treated at home. But in some cases, it can be serious. Your doctor will try to find the cause of your belly pain. Follow these instructions at home: Medicines ??? Take sjpc-ats-shqucua and prescription medicines only as told by your doctor. ??? Do not take medicines that help you poop (laxatives) unless told by your doctor. General instructions ??? Watch your belly pain for any changes. Tell your doctor if the pain gets worse. ??? Drink enough fluid to keep your pee (urine) pale yellow. Contact a doctor if: ??? Your belly pain changes or gets worse. ??? You have very bad cramping or bloating in your belly. ??? You vomit. ??? Your pain gets worse with meals, after eating, or with certain foods. ??? You have trouble pooping or have watery poop for more than 2?3 days. ??? You are not hungry, or you lose weight without trying. ??? You have signs of not getting enough fluid or water (dehydration). These may include: ? Dark pee, very little pee, or no pee. ? Cracked lips or dry mouth. ? Feeling sleepy or weak. ??? You have pain when you pee or poop. ??? Your belly pain wakes you up at night. ??? You have blood in your pee. ??? You have a fever. Get help right away if: (more content not included)... [facility] 04-02-2025 Hospital Discharg e instructions Patient Education 04/01/2025 23:14:21 Simple Pelvic Fracture, Adult Simple Pelvic Fracture, Adult A pelvic fracture is a break in one of the bones in the pelvis. The pelvic bones include the bones that you sit on and the bones that make up the lower part of your spine. A pelvic fracture is called simple if: There is only one break. The broken bone is stable and is not moving out of place. The bone does not villasenor the skin. A pelvic fracture may occur along with injuries to nerves, blood vessels, soft tissues, the urinary tract, and abdominal organs. What are the causes? Common causes of this type of fracture include: A fall. A motor vehicle collision. Force or pressure that hits the pelvis. What increases the risk? You are more likely to get this injury if you: Play high-impact sports, such as football or hockey. Have thinning or weakening of your bones, such as from osteopenia or osteoporosis. Have cancer that has spread to the bone. Have a condition that is associated with falling, such as Parkinson's disease or a seizure disorder. Have had a stroke. Smoke. What are the signs or symptoms? Signs and symptoms may include: Tenderness, swelling, or bruising in the affected area. Pain when moving the hip. Pain when walking or standing. How is this diagnosed? This condition is diagnosed with a physical exam, X-ray, or CT scan. You may also have blood or urine tests: To rule out damage to other organs, such as the urethra. To check for internal bleeding in the pelvic area. How is this treated? The goal of treatment is to get the bone to heal in its original position. Treatment includes: Using crutches, a walker, or a wheelchair until the bone heals. Medicines to treat pain. Medicines to prevent blood clots from forming in your legs. Physical therapy. Follow these instructions at home: Medicines Take glrr-zyb-qsinrxi and prescription medicines only as told by your health care provider. Ask your health care provider if the medicine prescribed to you requires you to avoid driving or using machinery. Managing pain, stiffness, and swelling If directed, put ice on the injured area. To do this: ?Put ice in a plastic bag. ?Place a towel between your skin and the bag. ?Leave the ice on for 20 minutes, 2 3 times a day. ?Remove the ice if your skin turns bright red. This is very important. If you cannot feel pain, heat, or cold, you have a greater risk of damage to the area. Move your toes, ankles, knees, and hips often to reduce stiffness and swelling. Activity Follow your health care provider's instructions about putting weight on your legs. ?Avoid strenuous activities for as long as directed by your health care provider. ?Return to your normal activities as told by your health care provider. Ask your health care provider what activities are safe for you. Use items to help you with your activities, such as: ?A long-handled shoehorn to help you put your shoes on. ?Elastic shoelaces that do not need to be retied. ?A cribbing setter or grabber to pick items up off the floor or from a shelf. General instructions Do not drive or use machinery until your health care provider tells you it is safe. Use a wheelchair or other assistive devices as directed by your health care provider. When you are ready to walk, start by using crutches or a walker to help support your body weight. Have someone help you at home as you recover. Wear compression stockings as told by your health care provider. Do not use any products that contain nicotine or tobacco. These products include cigarettes, chewing tobacco, and vaping devices, such as e-cigarettes. If you need help quitting, ask your health care provider. If you have an underlying condition that caused your pelvic fracture, work with your health care provider to manage your condition. Keep all follow-up visits. This is important. Contact a health care provider if: Your pain gets worse. Your pain is not relieved with medicines. You have difficulty or increased pain with walking. Get help right away if: You feel light-headed or faint. You develop chest pain. You develop shortness of breath. You have a fever. You have blood in your urine or your stools. You have bleeding in your vagina. You have difficulty or pain with urination or with passing stool. You have new or increased swelling in one of your legs. You have numbness in your legs or groin area. These symptoms may be an emergency. Get help right away. Call 911. Do not wait to see if the symptoms will go away. Do not drive yourself to the hospital. Summary A pelvic fracture is a break in one of the bones in the pelvis. These are the bones that you sit on and the bones that make up the lower part of your spine. A pelvic fracture is called simple if there is only one break, the broken bone is stable and not moving out of place, and the bone does not villasenor the skin. Common causes of this type of fracture include a fall, a motor vehicle collision, or a force or pressure that hits the pelvis. The goal of treatment is to get the bone to heal in its original position. Treatment includes limiting the weight that you put on your affected leg. You may have to use a wheelchair, crutches, or a walker until your bone heals. Other treatments include physical therapy and medicines to treat pain and prevent blood clots. This information is not intended to replace advice given to you by your health care provider. Make sure you discuss any questions you have with your health care provider. Document Revised: 06/29/2022 Document Reviewed: 06/29/2022 [employer] Patient Education 2023 [employer] 04/01/2025 23:14:21 Diarrhea, Adult Diarrhea, Adult Diarrhea is frequent loose and sometimes watery bowel movements. Diarrhea can make you feel weak and cause you to become dehydrated. Dehydration is a condition in which there is not enough water or other fluids in the body. Dehydration can make you tired and thirsty, cause you to have a dry mouth, and decrease how often you urinate. Diarrhea typically lasts 2 3 days. However, it can last longer if it is a sign of something more serious. It is important to treat your diarrhea as told by your health care provider. Follow these instructions at home: Eating and drinking Follow these recommendations as told by your health care provider: Take an oral rehydration solution (ORS). This is an mzsz-wsa-jlxrekd medicine that helps return your body to its normal balance of nutrients and water. It is found at pharmacies and retail stores. Drink enough fluid to keep your urine pale yellow. ?Drink fluids such as water, diluted fruit juice, and low-calorie sports drinks. You can drink milk also, if desired. Sucking on ice chips is another way to get fluids. ?Avoid drinking fluids that contain a lot of sugar or caffeine, such as soda, energy drinks, and regular sports drinks. ?Avoid alcohol. Eat bland, bxrk-ye-ngvont foods in small amounts as you are able. These foods include bananas, applesauce, rice, lean meats, toast, and crackers. Avoid spicy or fatty foods. Medicines Take crfq-kkx-prfaizh and prescription medicines only as told by your health care provider. If you were prescribed antibiotics, take them as told by your health care provider. Do not stop using the antibiotic even if you start to feel better. General instructions Wash your hands often using soap and water for at least 20 seconds. If soap and water are not available, use hand power tool repairer. Others in the household should wash their hands as well. Hands should be washed: ?After using the toilet or changing a diaper. ?Before preparing, cooking, or serving food. ?While caring for a sick person or while visiting someone in a hospital. Rest at home while you recover. Take a warm bath to relieve any burning or pain from frequent diarrhea episodes. Watch your condition for any changes. Contact a health care provider if: You have a fever. Your diarrhea gets worse. You have new symptoms. You vomit every time you eat or drink. You feel light-headed, dizzy, or have a headache. You have muscle cramps. You have signs of dehydration, such as: ?Dark urine, very little urine, or no urine. ?Cracked lips. ?Dry mouth. ?Sunken eyes. ?Sleepiness. ?Weakness. You have bloody or black stools or stools that look like tar. You have severe pain, cramping, or bloating in your abdomen. Your skin feels cold and clammy. You feel confused. Get help right away if: You have chest pain or your heart is beating very quickly. You have trouble breathing or you are breathing very quickly. You feel extremely weak or you faint. These symptoms may be an emergency. Get help right away. Call 911. Do not wait to see if the symptoms will go away. Do not drive yourself to the hospital. This information is not intended to replace advice given to you by your health care provider. Make sure you discuss any questions you have with your health care provider. Document Revised: 03/01/2023 Document Reviewed: 03/01/2023 [employer] Patient Education 2023 [employer] 04/01/2025 23:14:21 Colitis Colitis Colitis is a condition in which the colon is inflamed. It can cause diarrhea, blood in the stool, and abdominal pain. Colitis can last a short time (be acute), or it may last a long time (become chronic). What are the causes? This condition may be caused by: Infections from viruses or bacteria. A reaction to medicine. Certain autoimmune diseases, such as Crohn's disease or ulcerative colitis. Radiation treatment. Decreased blood flow to the bowel (ischemia). What are the signs or symptoms? Symptoms of this condition include: Diarrhea, blood in the stool, or black, tarry stool. Pain in the joints or abdominal pain. Fever or fatigue. Vomiting. Weight loss. Bloating. Having fewer bowel movements than usual. A strong and sudden urge to have a bowel movement. Feeling like the bowel is not empty after a bowel movement. How is this diagnosed? This condition may be diagnosed based on a stool test and a blood test. You may also have other tests, such as: X-rays. CT scan. Colonoscopy. Endoscopy. Biopsy. How is this treated? Treatment for this condition depends on the cause. This condition may be treated with: Steps to rest the bowel, such as not eating or drinking for a period of time. Fluids that are given through an IV. Medicine for pain and diarrhea. Antibiotic medicines. Cortisone medicines. Surgery. Follow these instructions at home: Eating and drinking Follow instructions from your health care provider about eating or drinking restrictions. Drink enough fluid to keep your urine pale yellow. Work with a dietitian to determine whether certain foods cause your condition to flare up. Avoid foods or drinks that cause flare-ups. Eat a well-balanced diet. General instructions If you were prescribed an antibiotic medicine, take it as told by your health care provider. Do not stop taking the antibiotic even if you start to feel better. Take hfor-ejk-vlezqwo and prescription medicines only as told by your health care provider. Keep all follow-up visits. This is important. Contact a health care provider if: Your symptoms do not go away. You develop new symptoms. Get help right away if: You have a fever that does not go away with treatment. You develop chills. You have extreme weakness, fainting, or dehydration. You vomit repeatedly. You develop severe pain in your abdomen. You pass bloody or tarry stool. Summary Colitis is a condition in which the colon is inflamed. Colitis can last a short time (be acute), or it may last a long time (become chronic). Treatment for this condition depends on the cause and may include resting the bowel, taking medicines, or having surgery. If you were prescribed an antibiotic medicine, take it as told by your health care provider. Do not stop taking the antibiotic even if you start to feel better. Get help right away if you develop severe pain in your abdomen. Keep all follow-up visits. This is important. This information is not intended to replace advice given to you by your health care provider. Make sure you discuss any questions you have with your health care provider. Document Revised: 05/19/2021 Document Reviewed: 05/19/2021 [employer] Patient Education 2023 [employer] Follow Up Care 04/01/2025 18:11:17 With:Mateusz Rodriguez Address: [address], [address] [place] [address]- [phone] Business (1) When:04/04/2025 Comments:Please call gastroenterology office for close outpatient follow-up. Take medication as prescribed. Continue to hydrate. Return to ED if symptoms worsen or new symptoms arise. With:Leodan Pittman Address: [address] [place] [address]- Business (1) When:04/04/2025 Comments:Please call orthopedic office for close outpatient follow-up regarding chronic pelvic fractures seen on CT scan. With:Elayne Adler Address:Unknown When:Within 3 Day(s) [facility] 04-01-2025 Note ED Patient Education Note Gastroenterology Colitis Colitis is a condition in which the colon is inflamed. It can cause diarrhea, blood in the stool, and abdominal pain. Colitis can last a short time (be acute), or it may last a long time (become chronic). What are the causes? This condition may be caused by: ??? Infections from viruses or bacteria. ??? A reaction to medicine. ??? Certain autoimmune diseases, such as Crohn's disease or ulcerative colitis. ??? Radiation treatment. ??? Decreased blood flow to the bowel (ischemia). What are the signs or symptoms? Symptoms of this condition include: ??? Diarrhea, blood in the stool, or black, tarry stool. ??? Pain in the joints or abdominal pain. ??? Fever or fatigue. ??? Vomiting. ??? Weight loss. ??? Bloating. ??? Having fewer bowel movements than usual. ??? A strong and sudden urge to have a bowel movement. ??? Feeling like the bowel is not empty after a bowel movement. How is this diagnosed? This condition may be diagnosed based on a stool test and a blood test. You may also have other tests, such as: ??? X-rays. ??? CT scan. ??? Colonoscopy. ??? Endoscopy. ??? Biopsy. How is this treated? Treatment for this condition depends on the cause. This condition may be treated with: ??? Steps to rest the bowel, such as not eating or drinking for a period of time. ??? Fluids that are given through an IV. ??? Medicine for pain and diarrhea. ??? Antibiotic medicines. ??? Cortisone medicines. ??? Surgery. Follow these instructions at home: Eating and drinking ??? Follow instructions from your health care provider about eating or drinking restrictions. ??? Drink enough fluid to keep your urine pale yellow. ??? Work with a dietitian to determine whether certain foods cause your condition to flare up. ??? Avoid foods or drinks that cause flare-ups. ??? Eat a well-balanced diet. General instructions ??? If you were prescribed an antibiotic medicine, take it as told by your health care provider. Do not stop taking the antibiotic even if you start to feel better. ??? Take utco-arl-nrfkmwx and prescription medicines only as told by your health care provider. ??? Keep all follow-up visits. This is important. Contact a health care provider if: ??? Your symptoms do not go away. ??? You develop new symptoms. Get help right away if: ??? You have a fever that does not go away with treatment. ??? You develop chills. ??? You have extreme weakness, fainting, or dehydration. ??? You vomit repeatedly. ??? You develop severe pain in your abdomen. ??? You pass bloody or tarry stool. Summary ??? Colitis is a condition in which the colon is inflamed. Colitis can last a short time (be acute), or it may last a long time (become chronic). ??? Treatment for this condition depends on the cause and may include resting the bowel, taking medicines, or having surgery. ??? If you were prescribed an antibiotic medicine, take it as told by your health care provider. Do not stop taking the antibiotic even if you start to feel better. ??? Get help right away if you develop severe pain in your abdomen. ??? Keep all follow-up visits. This is important. This information is not intended to replace advice given to you by your health care provider. Make sure you discuss any questions you have with your health care provider. Document Revised: 05/19/2021 Document Reviewed: 05/19/2021 [employer] Patient Education ? 2023 [employer] Infectious Disease Diarrhea, Adult Diarrhea is frequent loose and sometimes watery bowel movements. Diarrhea can make you feel weak and cause you to become dehydrated. Dehydration is a condition in which there is not enough water or other fluids in the body. Dehydration can make you tired and thirsty, cause you to have a dry mouth, and decrease how often you urinate. Diarrhea typically lasts 2?3 days. However, it can last longer if it is a sign of something more serious. It is important to treat your diarrhea as told by your health care provider. Follow these instructions at home: Eating and drinking Follow these recommendations as told by your health care provider: ??? Take an oral rehydration solution (ORS). This is an znni-exq-zkwjzut medicine that helps return your body to its normal balance of nutrients and water. It is found at pharmacies and retail stores. ??? Drink enough fluid to keep your urine pale yellow. ? Drink fluids such as water, diluted fruit juice, and low-calorie sports drinks. You can drink milk also, if desired. Sucking on ice chips is another way to get fluids. ? Avoid drinking fluids that contain a lot of sugar or caffeine, such as soda, energy drinks, and regular sports drinks. ? Avoid alcohol. ??? Eat bland, gtef-jd-okmyww foods in small amounts as you are ab (more content not included)... [facility] 04-01-2025 Evaluation + Plan note Extrac kp from: Title:ED Note Author:Douglas BRIONES, Johnny Alvarez te:04/01/25 Colitis (K52.9: Noninfective gastroenteritis and colitis, unspecified) Diarrhea (R19.7: Diarrhea, unspecified) Nausea & vomiting (R11.2: Nausea with vomiting, unspecified) Pelvic fracture (S32.9XXA: Fracture of unspecified parts of lumbosacral spine and pelvis, initial encounter for closed fracture) Orders: dicyclomine, 20 mg = 2 mL, Injection, IntraMuscular, Once, Stop date 04/01/25 19:48:00 EDT, STAT, Start date 04/01/25 19:48:00 EDT, 04/01/25 19:48:00 EDT dicyclomine, 10 mg = 1 cap(s), Oral, QID, X 7 day(s), # 28 cap(s), Refills(s) 0, Pharmacy: [id number], 170.2, cm, 04/01/25 18:15:00 EDT, Height/Length Dosing, 96, kg, 04/01/25 18:15:00 EDT, Weight Dosing ketorolac, 30 mg = 1 mL, Injection, IV Push, Once, Stop date 04/01/25 22:55:00 EDT, STAT, Start date 04/01/25 22:55:00 EDT, 04/01/25 22:55:00 EDT metoclopramide, 10 mg = 2 mL, Injection, IV Push, Once, Stop date 04/01/25 22:56:00 EDT, STAT, Start date 04/01/25 22:56:00 EDT, 04/01/25 22:56:00 EDT ondansetron, 4 mg = 1 tab(s), Oral, q6hr, PRN Nausea/Vomiting, # 12 tab(s), Refills(s) 0, Pharmacy: [email or web address] #[id number], 170.2, cm, 04/01/25 18:15:00 EDT, Height/Length Dosing, 96, kg, 04/01/25 18:15:00 EDT, Weight Dosing ondansetron, 4 mg = 2 mL, Injection, IV Push, Once, Stop date 04/01/25 19:48:00 EDT, STAT, Start date 04/01/25 19:48:00 EDT, 04/01/25 19:48:00 EDT promethazine, 25 mg = 1 tab(s), Oral, q6hr, PRN as needed for nausea/vomiting, # 10 tab(s), Refills(s) 0, Pharmacy: [email or web address] #[id number], 170.2, cm, 04/01/25 18:15:00 EDT, Height/Length Dosing, 96, kg, 04/01/25 18:15:00 EDT, Weight Dosing CT Abdomen/Pelvis w/ Contrast ECG 12 Lead Adult Future Appointments Appointment Date:04/02/2025 01:00:00 PM Scheduled Provider:Elayne Sanchez Location:[facility] Appointment Type: Open Future Scheduled Tests Laboratory* HgbA1c 09/07/24 * Vitamin D 25 Hydroxy 09/07/24 * Comprehensive Metabolic Panel 09/07/24 * Vitamin B12 Level 09/07/24 [facility] 05-26-2025 Hospital Discharge instructions Patient Education 02/18/2025 06:07:36 Tension Headache, Adult, Sjuc-iw-Pngs Tension Headache, Adult A tension headache is a feeling of pain, pressure, or aching in the head. It is often felt over thefront and sides of the head. Tension headaches can last from 30 minutes to several days. What are the causes? The cause of this condition is not known. Sometimes, tension headaches are brought on by stress, worry (anxiety), or depression. Other things that may set them off include: Alcohol. Too much caffeine or caffeine withdrawal. Colds, flu, or sinus infections. Dental problems. This can include clenching your teeth. Being tired. Holding your head and neck in the same position for a long time, such as while using a computer. Smoking. Arthritis in the neck. What are the signs or symptoms? Feeling pressure around the head. A dull ache in the head. Pain over the front and sides of the head. Feeling sore or tender in the muscles of the head, neck, and shoulders. How is this treated? This condition may be treated with lifestyle changes and with medicines that help relieve symptoms. Follow these instructions at home: Managing pain Take alxl-qkq-xnrmlbn and prescription medicines only as told by your doctor. When you have a headache, lie down in a dark, quiet room. If told, put ice on your head and neck. To do this: ?Put ice in a plastic bag. ?Place a towel between your skin and the bag. ?Leave the ice on for 20 minutes, 2 3 times a day. ?Take off the ice if your skin turns bright red. This is very important. If you cannot feel pain, heat, or cold, you have a greater risk of damage to the area. If told, put heat on the back of your neck. Do this as often as told by your doctor. Use the heat source that your doctor recommends, such as a moist heat pack or a heating pad. ?Place a towel between your skin and the heat source. ?Leave the heat on for 20 30 minutes. ?Take off the heat if your skin turns bright red. This is very important. If you cannot feel pain, heat, or cold, you have a greater risk of getting burned. Eating and drinking Eat meals on a regular schedule. If you drink alcohol: ?Limit how much you have to: ?0 1 drink a day for women who are not . ?0 2 drinks a day for men. ?Know how much alcohol is in your drink. In the [place] one drink equals one 12 oz bottle of beer (355 mL), one 5 oz glass of wine (148 mL), or one 1 oz glass of hard liquor (44 mL). Drink enough fluid to keep your pee (urine) pale yellow. Do not use a lot of caffeine, or stop using caffeine. Lifestyle Get 7 9 hours of sleep each night. Or get the amount of sleep that your doctor tells you to. At bedtime, keep computers, phones, and tablets out of your room. Find ways to lessen your stress. This may include: ?Exercise. ?Deep breathing. ?Yoga. ?Listening to music. ?Thinking positive thoughts. Sit up straight. Try to relax your muscles. Do not smoke or use any products that contain nicotine or tobacco. If you need help quitting, ask your doctor. General instructions Avoid things that can bring on headaches. Keep a headache journal to see what may bring on headaches. For example, write down: ?What you eat and drink. ?How much sleep you get. ?Any change to your diet or medicines. Keep all follow-up visits. Contact a doctor if: Your headache does not get better. Your headache comes back. You have a headache, and sounds, light, or smells bother you. You feel like you may vomit, or you vomit. Your stomach hurts. Get help right away if: You all of a sudden get a very bad headache with any of these things: ?A stiff neck. ?Feeling like you may vomit. ?Vomiting. ?Feeling mixed up (confused). ?Feeling weak in one part or one side of your body. ?Having trouble seeing or speaking, or both. ?Feeling short of breath. ?A rash. ?Feeling very sleepy. ?Pain in your eye or ear. ?Trouble walking or balancing. ?Feeling like you will faint, or you faint. Summary A tension headache is pain, pressure, or aching in your head. Tension headaches can last from 30 minutes to several days. Lifestyle changes and medicines may help relieve pain. This information is not intended to replace advice given to you by your health care provider. Make sure you discuss any questions you have with your health care provider. Document Revised: 06/11/2021 Document Reviewed: 06/11/2021 [employer] Patient Education 2023 [employer] Follow Up Care 02/17/2025 22:52:55 With:Elayne Adler Address:Unknown When:1 to 2 days only if needed [facility] 05-26-2025 NoteED Patient Education Note Neurology Tension Headache, Adult A tension headache is a feeling of pain, pressure, or aching in the head. It is often felt over thefront and sides of the head. Tension headaches can last from 30 minutes to several days. What are the causes? The cause of this condition is not known. Sometimes, tension headaches are brought on by stress, worry (anxiety), or depression. Other things that may set them off include: ??? Alcohol. ??? Too much caffeine or caffeine withdrawal. ??? Colds, flu, or sinus infections. ??? Dental problems. This can include clenching your teeth. ??? Being tired. ??? Holding your head and neck in the same position for a long time, such as while using a computer. ??? Smoking. ??? Arthritis in the neck. What are the signs or symptoms? Feeling pressure around the head. ??? A dull ache in the head. ??? Pain over the front and sides of the head. ??? Feeling sore or tender in the muscles of the head, neck, and shoulders. How is this treated? This condition may be treated with lifestyle changes and with medicines that help relieve symptoms. Follow these instructions at home: Managing pain ??? Take tukr-taa-otqgeph and prescription medicines only as told by your doctor. ??? When you have a headache, lie down in a dark, quiet room. ??? If told, put ice on your head and neck. To do this: ? Put ice in a plastic bag. ? Place a towel between your skin and the bag. ? Leave the ice on for 20 minutes, 2?3 times a day. ? Take off the ice if your skin turns bright red. This is very important. If you cannot feel pain, heat, or cold, you have a greater risk of damage to the area. ??? If told, put heat on the back of your neck. Do this as often as told by your doctor. Use the heat source that your doctor recommends, such as a moist heat pack or a heating pad. ? Place a towel between your skin and the heat source. ? Leave the heat on for 20?30 minutes. ? Take off the heat if your skin turns bright red. This is very important. If you cannot feel pain,heat, or cold, you have a greater risk of getting burned. Eating and drinking ??? Eat meals on a regular schedule. ??? If you drink alcohol: ? Limit how much you have to: ? 0?1 drink a day for women who are not . ? 0?2 drinks a day for men. ? Know how much alcohol is in your drink. In the [place] one drink equals one 12 oz bottle of beer (355 mL), one 5 oz glass of wine (148 mL), or one 1? oz glass of hard liquor (44 mL). ??? Drink enough fluid to keep your pee (urine) pale yellow. ??? Do not use a lot of caffeine, or stop using caffeine. Lifestyle ??? Get 7?9 hours of sleep each night. Or get the amount of sleep that your doctor tells you to. ??? At bedtime, keep computers, phones, and tablets out of your room. ??? Find ways to lessen your stress. This may include: ? Exercise. ? Deep breathing. ? Yoga. ? Listening to music. ? Thinking positive thoughts. ??? Sit up straight. Try to relax your muscles. ??? Do not smoke or use any products that contain nicotine or tobacco. If you need help quitting, ask your doctor. General instructions ??? Avoid things that can bring on headaches. Keep a headache journal to see what may bring on headaches. For example, write down: ? What you eat and drink. ? How much sleep you get. ? Any change to your diet or medicines. ??? Keep all follow-up visits. Contact a doctor if: ??? Your headache does not get better. ??? Your headache comes back. ??? You have a headache, and sounds, light, or smells bother you. ??? You feel like you may vomit, or you vomit. ??? Your stomach hurts. Get help right away if: ??? You all of a sudden get a very bad headache with any of these things: ? A stiff neck. ? Feeling like you may vomit. ? Vomiting. ? Feeling mixed up (confused). ? Feeling weak in one part or one side of your body. ? Having trouble seeing or speaking, or both. ? Feeling short of breath. ? A rash. ? Feeling very sleepy. ? Pain in your eye or ear. ? Trouble walking or balancing. ? Feeling like you will faint, or you faint. Summary ??? A tension headache is pain, pressure, or aching in your head. ??? Tension headaches can last from 30 minutes to several days. ??? Lifestyle changes and medicines may help relieve pain. This information is not intended to replace advice given to you by your health care provider. Make sure you discuss any questions you have with your health care provider. Document Revised: 06/11/2021 Document Reviewed: 06/11/2021 [employer] Patient Education ? 2023 [employer]+.[facility] 02-17-2025 Evaluation + Plan noteExtracted from: Title:ED Note Author:Delia Nguyen PA-C te:02/17/25 Headache (R51.9: Headache, u nspecified) Orders: APAP/butalbital/caffeine, 2 tab(s), Oral, q6hr for headache, 20 tab(s), Refill(s) 0 APAP/butalbital/caffeine, 2 tab(s), Tab, Oral, Once, Stop date 02/18/25 6:02:00 EDT, STAT, Start date 02/18/25 6:02:00 EDT Future Appointments Appointment Date:03/04/2025 01:00:00 PM Scheduled Provider:Elayne Sanchez Location:[facility] Appointment Type:FM New Patient - Adult Future Scheduled Tests Laboratory* HgbA1c 09/07/24 * Vitamin D 25 Hydroxy 09/07/24 * Comprehensive Metabolic Panel 09/07/24 * Vitamin B12 Level 09/07/24 [facility] 03-22-2025 NoteED Patient Education Note ENT Otitis Media, Adult Otitis media is a condition in which the middle ear is red and swollen (inflamed) and full of fluid. The middle ear is the part of the ear that contains bones for hearing as well as air that helps send sounds to the brain. The condition usually goes away on its own. What are the causes? This condition is caused by a blockage in the eustachian tube. This tube connects the middle ear tothe back of the nose. It normally allows air into the middle ear. The blockage is caused by fluid or swelling. Problems that can cause blockage include: ??? A cold or infection that affects the nose, mouth, or throat. ??? Allergies. ??? An irritant, such as tobacco smoke. ??? Adenoids that have become large. The adenoids are soft tissue located in the back of the throat, behind the nose and the roof of the mouth. ??? Growth or swelling in the upper part of the throat, just behind the nose (nasopharynx). ??? Damage to the ear caused by a change in pressure. This is called barotrauma. What increases the risk? You are more likely to develop this condition if you: ??? Smoke or are exposed to tobacco smoke. ??? Have an opening in the roof of your mouth (cleft palate). ??? Have acid reflux. ??? Have problems in your body's defense system (immune system). What are the signs or symptoms? Symptoms of this condition include: ??? Ear pain. ??? Fever. ??? Problems with hearing. ??? Being tired. ??? Fluid leaking from the ear. ??? Ringing in the ear. How is this treated? This condition can go away on its own within 3?5 days. But if the condition is caused by germs (bacteria) and does not go away on its own, or if it keeps coming back, your doctor may: ??? Give you antibiotic medicines. ??? Give you medicines for pain. Follow these instructions at home: ??? Take bpfk-kvq-kqnhtwx and prescription medicines only as told by your doctor. ??? If you were prescribed an antibiotic medicine, take it as told by your doctor. Do not stop taking it even if you start to feel better. ??? Keep all follow-up visits. Contact a doctor if: ??? You have bleeding from your nose. ??? There is a lump on your neck. ??? You are not feeling better in 5 days. ??? You feel worse instead of better. Get help right away if: ??? You have pain that is not helped with medicine. ??? You have swelling, redness, or pain around your ear. ??? You get a stiff neck. ??? You cannot move part of your face (paralysis). ??? You notice that the bone behind your ear hurts when you touch it. ??? You get a very bad headache. Summary ??? Otitis media means that the middle ear is red, swollen, and full of fluid. ??? This condition usually goes away on its own. ??? If the problem does not go away, treatment may be needed. You may be given medicines to treat the infection or to treat your pain. ??? If you were prescribed an antibiotic medicine, take it as told by your doctor. Do not stop taking it even if you start to feel better. ??? Keep all follow-up visits. This information is not intended to replace advice given to you by your health care provider. Make sure you discuss any questions you have with your health care provider. Document Revised: 12/21/2021 Document Reviewed: 12/21/2021 [employer] Patient Education ? 2023 [employer]+.[facility] 12-06-2024 Evaluation + Plan noteExtracted from: Title:ED Note Author:Wendy BRIONES, Delia Alvarez te:12/06/24 CAP (community acquired pneu monia) (J18.9: Pneumonia, unspecified organism) Orders: doxycycline, 100 mg = 1 cap(s), Oral, BID, X 5 day(s), # 10 cap(s), Refills(s) 0, Pharmacy: [email or web address] #[id number], 170, cm, 12/06/24 10:33:00 EDT, Height/Length Dosing, 100.6, kg, 12/06/24 10:33:00 EDT, Weight Dosing predniSONE, 50 mg = 1 tab(s), Oral, Daily, X 5 day(s), # 5 tab(s), Refills(s) 0, Pharmacy: [email or web address] #[id number], 170, cm, 12/06/24 10:33:00 EDT, Height/Length Dosing, 100.6, kg, 12/06/24 10:33:00 EDT, Weight Dosing XR Chest 2 Views Future Appointments Appointment Date:12/18/2024 10:00:00 AM Scheduled Provider:Elayne Sanchez Location:[facility] Appointment Type: Open Future Scheduled Tests Laboratory* HgbA1c 09/07/24 * Vitamin D 25 Hydroxy 09/07/24 * Comprehensive Metabolic Panel 09/07/24 * Vitamin B12 Level 09/07/24 [facility] 03-13-2025 Hospital Discharge instructions Patient Education 12/06/2024 11:41:55 Community-Acquired Pneumonia, Adult, Skuk-[id number] Community-Acquired Pneumonia, Adult Pneumonia is an infection of the lungs. It causes irritation and swelling in the airways of the lungs. Mucus and fluid may also build up inside the airways. This may cause coughing and trouble breathing. One type of pneumonia can happen while you are in a hospital. A different type can happen when you are not in a hospital (community-acquired pneumonia). What are the causes? This condition is caused by germs (viruses, bacteria, or fungi). Some types of germs can spread from person to person. Pneumonia is not thought to spread from person to person. What increases the risk? You have a long-term (chronic) disease, such as: ?Disease of the lungs. This may be chronic obstructive pulmonary disease (COPD) or asthma. ?Heart failure. ?Cystic fibrosis. ?Diabetes. ?Kidney disease. ?Sickle cell disease. ?HIV. You have other health problems, such as: ?Your body's defense system (immune system) is weak. ?A condition that may cause you to breathe in fluids from your mouth and nose. You had your spleen taken out. You do not take good care of your teeth and mouth (poor dental hygiene). You use or have used tobacco products. You go where the germs that cause this illness are common. You are older than 65 years of age. What are the signs or symptoms? A cough. A fever. Sweating or chills. Chest pain, often when you breathe deeply or cough. Breathing problems, such as: ?Fast breathing. ?Trouble breathing. ?Shortness of breath. Feeling tired (fatigued). Muscle aches. How is this treated? Treatment for this condition depends on many things, such as: The cause of your illness. Your medicines. Your other health problems. Most adults can be treated at home. Sometimes, treatment must happen in a hospital. Treatment may include medicines to kill germs. Medicines may depend on which germ caused your illness. Very bad pneumonia is rare. If you get it, you may: Have a machine to help you breathe. Have fluid taken away from around your lungs. Follow these instructions at home: Medicines Take ztcu-lzj-hxllrbo and prescription medicines only as told by your doctor. Take cough medicine only if you are losing sleep. Cough medicine can keep your body from taking mucus away from your lungs. If you were prescribed antibiotics, take them as told by your doctor. Do not stop taking them even if you start to feel better. Lifestyle Do not smoke or use any products that contain nicotine or tobacco. If you need help quitting, ask your doctor. Do not drink alcohol. Eat a healthy diet. This includes a lot of vegetables, fruits, whole grains, low-fat dairy products, and low-fat (lean) protein. General instructions Rest a lot. Sleep for at least 8 hours each night. Sleep with your head and neck raised. Put a few pillows under your head or sleep in a reclining chair. Return to your normal activities as told by your doctor. Ask your doctor what activities are safe for you. Drink enough fluid to keep your pee (urine) pale yellow. If your throat is sore, gargle with a mixture of salt and water 3 4 times a day or as needed. To make salt water, completely dissolve 1 tsp (3 6 g) of salt in 1 cup (237 mL) of warm water. Keep all follow-up visits. How is this prevented? Getting the pneumonia shot (vaccine). These shots have different types and schedules. Ask your doctor what works best for you. Think about getting this shot if: ?You are older than 65 years of age. ?You are 19 65 years of age and: ?You are being treated for cancer. ?You have long-term lung disease. ?You have other problems that affect your body's defense system. Ask your doctor if you have one ofthese. Getting your flu shot every year. Ask your doctor which type of shot is best for you. Going to the dentist as often as told. Washing your hands often with soap and water for at least 20 seconds. If you cannot use soap and water, use hand power tool repairer. Contact a doctor if: You have a fever. You lose sleep because your cough medicine does not help. Get help right away if: You are short of breath and this gets worse. You have more chest pain. Your sickness gets worse. This is very serious if: ?You are an older adult. ?Your body's defense system is weak. You cough up blood. These symptoms may be an emergency. Get help right away. Call 911. Do not wait to see if the symptoms will go away. Do not drive yourself to the hospital. Summary Pneumonia is an infection of the lungs. Community-acquired pneumonia affects people who have not been in the hospital. Certain germs can cause this infection. This condition may be treated with medicines that kill germs. For very bad pneumonia, you may need a hospital stay and treatment to help with breathing. This information is not intended to replace advice given to you by your health care provider. Make sure you discuss any questions you have with your health care provider. Document Revised: 11/10/2022 Document Reviewed: 11/10/2022 [employer] Patient Education 2023 M[employer]+. Follow Up Care 12/06/2024 10:30:35 With:Brigitte Garcia Address: [address] [place] [address] [place] [id number] Business (1) When:12/09/2024 11:41:22 Comments:Call to schedule a follow-up appointment with your primary care provider. Take the antibiotic and prednisone as prescribed. Return to the ED with any new or worsening symptoms. [facility] 03-13-2025 NoteED Patient Education Note Infectious Disease Community-Acquired Pneumonia, Adult Pneumonia is an infection of the lungs. It causes irritation and swelling in the airways of the lungs. Mucus and fluid may also build up inside the airways. This may cause coughing and trouble breathing. One type of pneumonia can happen while you are in a hospital. A different type can happen when you are not in a hospital (community-acquired pneumonia). What are the causes? This condition is caused by germs (viruses, bacteria, or fungi). Some types of germs can spread from person to person. Pneumonia is not thought to spread from person to person. What increases the risk? You have a long-term (chronic) disease, such as: ? Disease of the lungs. This may be chronic obstructive pulmonary disease (COPD) or asthma. ? Heart failure. ? Cystic fibrosis. ? Diabetes. ? Kidney disease. ? Sickle cell disease. ? HIV. ??? You have other health problems, such as: ? Your body's defense system (immune system) is weak. ? A condition that may cause you to breathe in fluids from your mouth and nose. ??? You had your spleen taken out. ??? You do not take good care of your teeth and mouth (poor dental hygiene). ??? You use or have used tobacco products. ??? You go where the germs that cause this illness are common. ??? You are older than 65 years of age. What are the signs or symptoms? A cough. ??? A fever. ??? Sweating or chills. ??? Chest pain, often when you breathe deeply or cough. ??? Breathing problems, such as: ? Fast breathing. ? Trouble breathing. ? Shortness of breath. ??? Feeling tired (fatigued). ??? Muscle aches. How is this treated? Treatment for this condition depends on many things, such as: ??? The cause of your illness. ??? Your medicines. ??? Your other health problems. Most adults can be treated at home. Sometimes, treatment must happen in a hospital. ??? Treatment may include medicines to kill germs. ??? Medicines may depend on which germ caused your illness. Very bad pneumonia is rare. If you get it, you may: ??? Have a machine to help you breathe. ??? Have fluid taken away from around your lungs. Follow these instructions at home: Medicines ??? Take ymss-ybs-dwjcpjo and prescription medicines only as told by your doctor. ??? Take cough medicine only if you are losing sleep. Cough medicine can keep your body from takingmucus away from your lungs. ??? If you were prescribed antibiotics, take them as told by your doctor. Do not stop taking them even if you start to feel better. Lifestyle ??? Do not smoke or use any products that contain nicotine or tobacco. If you need help quitting, ask your doctor. ??? Do not drink alcohol. ??? Eat a healthy diet. This includes a lot of vegetables, fruits, whole grains, low-fat dairy products, and low-fat (lean) protein. General instructions ??? Rest a lot. Sleep for at least 8 hours each night. ??? Sleep with your head and neck raised. Put a few pillows under your head or sleep in a recliningchair. ??? Return to your normal activities as told by your doctor. Ask your doctor what activities are safe for you. ??? Drink enough fluid to keep your pee (urine) pale yellow. ??? If your throat is sore, gargle with a mixture of salt and water 3?4 times a day or as needed. To make salt water, completely dissolve ??1 tsp (3?6 g) of salt in 1 cup (237 mL) of warm water. ??? Keep all follow-up visits. How is this prevented? Getting the pneumonia shot (vaccine). These shots have different types and schedules. Ask your doctor what works best for you. Think about getting this shot if: ? You are older than 65 years of age. ? You are 19?65 years of age and: ? You are being treated for cancer. ? You have long-term lung disease. ? You have other problems that affect your body's defense system. Ask your doctor if you have one of these. ??? Getting your flu shot every year. Ask your doctor which type of shot is best for you. ??? Going to the dentist as often as told. ??? Washing your hands often with soap and water for at least 20 seconds. If you cannot use soap and water, use hand power tool repairer. Contact a doctor if: ??? You have a fever. ??? You lose sleep because your cough medicine does not help. Get help right away if: ??? You are short of breath and this gets worse. ??? You have more chest pain. ??? Your sickness gets worse. This is very serious if: ? You are an older adult. ? Your body's defense system is weak. ??? You cough up blood. These symptoms may be an emergency. Get help right away. Call 911. ??? Do not wait to see if the symptoms will go away. ??? Do not drive yourself to the hospital. Summary ??? Pneumonia is an infection of the lungs. ??? Community-acquired pneumonia (more content not included)...[facility]03-11-2025 Hospital Discharge instructions Patient Education 12/04/2024 21:29:23 Viral Illness, Adult Viral Illness, Adult Viruses are tiny germs that can get into a person's body and cause illness. There are many different types of viruses. And they cause many types of illness. Viral illnesses can range from mild to severe. They can affect various parts of the body. Short-term conditions that are caused by a virus include colds and flu (influenza) and stomach viruses. Long-term conditions that are caused by a virus include herpes, shingles, and human immunodeficiency virus (HIV) infection. A few viruses have been linked to certain cancers. What are the causes? Many types of viruses can cause illness. Viruses get into cells in your body, multiply, and cause the infected cells to work differently or . When these cells , they release more of the virus. When this happens, you get symptoms of the illness and the virus spreads to other cells. If the virus takes over how the cell works, it can cause the cell to divide and grow out of control. This happens when a virus causes cancer. Different viruses get into the body in different ways. You can get a virus by: Swallowing food or water that has come in contact with the virus. Breathing in droplets that have been coughed or sneezed into the air by an infected person. Touching a surface that has the virus on it and then touching your eyes, nose, or mouth. Being bitten by an insect or animal that carries the virus. Having sexual contact with a person who is infected with the virus. Being exposed to blood or fluids that contain the virus, either through an open cut or during a transfusion. If a virus enters your body, your body's disease-fighting system (immune system) will try to fight the virus. You may be at higher risk for a viral illness if your immune system is weak. What are the signs or symptoms? Symptoms depend on the type of virus and the location of the cells that it gets into. Symptoms can include: For cold and flu viruses: ?Fever. ?Headache. ?Sore throat. ?Muscle aches. ?Stuffy nose (nasal congestion). ?Cough. For stomach (gastrointestinal) viruses: ?Fever. ?Pain in the abdomen. ?Nausea or vomiting. ?Diarrhea. For liver viruses (hepatitis): ?Loss of appetite. ?Feeling tired. ?Skin or the white parts of your eyes turning yellow (jaundice). For brain and spinal cord viruses: ?Fever. ?Headache. ?Stiff neck. ?Nausea and vomiting. ?Confusion or being sleepy. For skin viruses: ?Warts. ?Itching. ?Rash. For sexually transmitted viruses: ?Discharge. ?Swelling. ?Redness. ?Rash. How is this diagnosed? This condition may be diagnosed based on one or more of these: Your symptoms and medical history. A physical exam. Tests, such as: ?Blood tests. ?Tests on a sample of mucus from your lungs (sputum sample). ?Tests on a poop (stool) sample. ?Tests on a swab of body fluids or a skin sore (lesion). How is this treated? Viruses can be hard to treat because they live within cells. Antibiotics do not treat viruses because these medicines do not get inside cells. Treatment for a viral illness may include: Resting and drinking a lot of fluids. Medicines to treat symptoms. These can include ytim-uha-bexfbpx medicine for pain and fever, medicines for cough or congestion, and medicines for diarrhea. Antiviral medicines. These medicines are available only for certain types of viruses. Some viral illnesses can be prevented with vaccinations. A common example is the flu shot. Follow these instructions at home: Medicines Take lyle-czn-gbgsptg and prescription medicines only as told by your health care provider. If you were prescribed an antiviral medicine, take it as told by your provider. Do not stop taking the antiviral even if you start to feel better. Know when antibiotics are needed and when they are not needed. Antibiotics do not treat viruses. You may get an antibiotic if your provider thinks that you may have, or are at risk for, a bacterial infection and you have a viral infection. ?Do not ask for an antibiotic prescription if you have been diagnosed with a viral illness. Antibiotics will not make your illness go away faster. ?Taking antibiotics when they are not needed can lead to antibiotic resistance. When this develops,the medicine no longer works against the bacteria that it normally fights. General instructions Drink enough fluids to keep your pee (urine) pale yellow. Rest as much as possible. Return to your normal activities as told by your provider. Ask your provider what activities are safe for you. How is this prevented? To lower your risk of getting another viral illness: Wash your hands often with soap and water for at least 20 seconds. If soap and water are not available, use hand power tool repairer. Avoid touching your nose, eyes, and mouth, especially if you have not washed your hands recently. If anyone in your household has a viral infection, clean all household surfaces that may have been in contact with the virus. Use soap and hot water. You may also use a commercially prepared, bleach-containing solution. Stay away from people who are sick with symptoms of a viral infection. Do not share items such as toothbrushes and water bottles with other people. Keep your vaccinations up to date. This includes getting a yearly flu shot. Eat a healthy diet and get plenty of rest. Contact a health care provider if: You have symptoms of a viral illness that do not go away. Your symptoms come back after going away. Your symptoms get worse. Get help right away if: You have trouble breathing. You have a severe headache or a stiff neck. You have severe vomiting or pain in your abdomen. These symptoms may be an emergency. Get help right away. Call 911. Do not wait to see if the symptoms will go away. Do not drive yourself to the hospital. This information is not intended to replace advice given to you by your health care provider. Make sure you discuss any questions you have with your health care provider. Document Revised: 09/28/2023 Document Reviewed: 07/13/2023 [employer] Patient Education 2023 [employer] Follow Up Care 12/04/2024 17:52:46 With:Leon Haro Address: [address], [facility] A [address] [phone] Business (1) When:12/07/2024 19:04:04 [facility] 03-11-2025 NoteED Patient Education Note Infectious Disease Viral Illness, Adult Viruses are tiny germs that can get into a person's body and cause illness. There are many different types of viruses. And they cause many types of illness. Viral illnesses can range from mild to severe. They can affect various parts of the body. Short-term conditions that are caused by a virus include colds and flu (influenza) and stomach viruses. Long-term conditions that are caused by a virus include herpes, shingles, and human immunodeficiency virus (HIV) infection. A few viruses have been linked to certain cancers. What are the causes? Many types of viruses can cause illness. Viruses get into cells in your body, multiply, and cause the infected cells to work differently or . When these cells , they release more of the virus. When this happens, you get symptoms of the illness and the virus spreads to other cells. If the virus takes over how the cell works, it can cause the cell to divide and grow out of control. This happens when a virus causes cancer. Different viruses get into the body in different ways. You can get a virus by: ??? Swallowing food or water that has come in contact with the virus. ??? Breathing in droplets that have been coughed or sneezed into the air by an infected person. ??? Touching a surface that has the virus on it and then touching your eyes, nose, or mouth. ??? Being bitten by an insect or animal that carries the virus. ??? Having sexual contact with a person who is infected with the virus. ??? Being exposed to blood or fluids that contain the virus, either through an open cut or during atransfusion. If a virus enters your body, your body's disease-fighting system (immune system) will try to fight the virus. You may be at higher risk for a viral illness if your immune system is weak. What are the signs or symptoms? Symptoms depend on the type of virus and the location of the cells that it gets into. Symptoms can include: ??? For cold and flu viruses: ? Fever. ? Headache. ? Sore throat. ? Muscle aches. ? Stuffy nose (nasal congestion). ? Cough. ??? For stomach (gastrointestinal) viruses: ? Fever. ? Pain in the abdomen. ? Nausea or vomiting. ? Diarrhea. ??? For liver viruses (hepatitis): ? Loss of appetite. ? Feeling tired. ? Skin or the white parts of your eyes turning yellow (jaundice). ??? For brain and spinal cord viruses: ? Fever. ? Headache. ? Stiff neck. ? Nausea and vomiting. ? Confusion or being sleepy. ??? For skin viruses: ? Warts. ? Itching. ? Rash. ??? For sexually transmitted viruses: ? Discharge. ? Swelling. ? Redness. ? Rash. How is this diagnosed? This condition may be diagnosed based on one or more of these: ??? Your symptoms and medical history. ??? A physical exam. ??? Tests, such as: ? Blood tests. ? Tests on a sample of mucus from your lungs (sputum sample). ? Tests on a poop (stool) sample. ? Tests on a swab of body fluids or a skin sore (lesion). How is this treated? Viruses can be hard to treat because they live within cells. Antibiotics do not treat viruses because these medicines do not get inside cells. Treatment for a viral illness may include: ??? Resting and drinking a lot of fluids. ??? Medicines to treat symptoms. These can include ptwd-cyp-zrlxill medicine for pain and fever, medicines for cough or congestion, and medicines for diarrhea. ??? Antiviral medicines. These medicines are available only for certain types of viruses. Some viral illnesses can be prevented with vaccinations. A common example is the flu shot. Follow these instructions at home: Medicines ??? Take danf-hur-idurkau and prescription medicines only as told by your health care provider. ??? If you were prescribed an antiviral medicine, take it as told by your provider. Do not stop taking the antiviral even if you start to feel better. ??? Know when antibiotics are needed and when they are not needed. Antibiotics do not treat viruses. You may get an antibiotic if your provider thinks that you may have, or are at risk for, a bacterial infection and you have a viral infection. ? Do not ask for an antibiotic prescription if you have been diagnosed with a viral illness. Antibiotics will not make your illness go away faster. ? Taking antibiotics when they are not needed can lead to antibiotic resistance. When this develops, the medicine no longer works against the bacteria that it normally fights. General instructions ??? Drink enough fluids to keep your pee (urine) pale yellow. ??? Rest as much as possible. ??? Return to your normal activities as told by your provider. Ask your provider what activities are safe for you. How is this prevented? To lower your risk of getting another viral illness: ??? Wash your hands often with soap and water for at least 20 seconds. If soap and water are not available, use hand power tool repairer. ??? (more content not included)...[facility]02-06-2025 Hospital Discharge instructions Patient Education 11/01/2024 15:25:19 Acute Pain, Adult Acute Pain, Adult Acute pain is a type of sudden pain that may last for just a few days or for as long as three months. It is often related to an illness, injury, or a medical procedure. Acute pain may be mild, moderate, or severe. Pain can make it hard for you to do your daily activities. It can cause anxiety and lead to other problems if it is not treated. Treatment may not take all the pain away, but it may lessen the pain so you can move around and tolerate it. Pain is best treated with medicines and other therapies such as distraction, meditation, oils from plants (aromatherapy), heat, and ice. Treatment depends on the cause of the pain and how severe it is. Acute pain usually goes away once your injury has healed or you are no longer ill. Follow these instructions at home: Medicines Take ncuj-fpm-jvjpivl and prescription medicines only as told by your health care provider. Take the lowest dose of medicine for the shortest amount of time needed to relieve the pain. If you are taking prescription pain medicine: ?Do not stop taking the medicine suddenly. Talk to your health care provider about how and when to stop taking prescription medicine. ?Do not take more pills than told by your health care provider even if your pain is severe. ?Do not take other sbrl-fon-vpsbhwh pain medicines in addition to prescription pain medicine unlesstold by your health care provider. ?Keep your medicine in a safe place, away from children or anyone who could use it in a way that itwas not prescribed. ?Ask your health care provider if the medicine prescribed to you requires you to avoid driving or using machinery. Managing pain, stiffness, and swelling If told, put ice on the affected area. ?Put ice in a plastic bag. ?Place a towel between your skin and the bag. ?Leave the ice on for 20 minutes, 2 3 times a day. If told, apply heat to the affected area as often as told by your health care provider. Use the heat source that your health care provider recommends, such as a moist heat pack or a heating pad. ?Place a towel between your skin and the heat source. ?Leave the heat on for 20 30 minutes. If your skin turns bright red, remove the ice or heat right away to prevent skin damage. The risk of damage is higher if you cannot feel pain, heat, or cold. Managing constipation Your medicines may cause constipation. To prevent or treat constipation, you may need to: Drink enough fluid to keep your urine pale yellow. Take qtep-aci-exnzxis or prescription medicines. Eat foods that are high in fiber, such as beans, whole grains, and fresh fruits and vegetables. Limit foods that are high in fat and processed sugars, such as fried or sweet foods. Activity Rest as told by your health care provider. Return to your normal activities as told by your health care provider. Ask your health care provider what activities are safe for you. Ask your health care provider if doing physical therapy exercises to improve movement and strength can help you manage your pain. General instructions Check your pain level as told by your health care provider. Ask your health care provider if distraction, relaxation, or aromatherapy can help you manage your pain. Keep all follow-up visits. Your health care provider will monitor your pain level. Contact a health care provider if: Your pain is not controlled by medicine. Your pain does not improve or gets worse. You have side effects from pain medicines. Get help right away if: You have severe pain. You have trouble breathing. You faint, or another person sees you faint. You have chest pain or pressure that lasts for more than a few minutes, or if you have other symptoms along with chest pain, including: ?Pain or discomfort in one or both arms, your back, neck, jaw, or stomach. ?Shortness of breath. ?A cold sweat. ?Nausea. ?Feeling light-headed. These symptoms may be an emergency. Get help right away. Call 911. Do not wait to see if the symptoms will go away. Do not drive yourself to the hospital. This information is not intended to replace advice given to you by your health care provider. Make sure you discuss any questions you have with your health care provider. Document Revised: 04/06/2023 Document Reviewed: 04/06/2023 [employer] Patient Education 2023 [employer]+. Follow Up Care 11/01/2024 09:59:32 With:[employer] [facility] Address: [address] [place] [address] [place] [address]- Business (1) When:11/04/2024 15:24:49 Comments:Call to schedule a follow-up appointment with her primary care provider at [facility]. Elevate your feet and use decompressions as discussed. Continue to monitor your blood pressure. Return to the ED with any new or worsening symptoms. With:Brigitte Garcia Address: [facility] [place], [facility] A [address] [address]- Business (1) When:Within 3 Day(s) [facility] 02-06-2025 NoteED Patient Education Note Orthopedics Acute Pain, Adult Acute pain is a type of sudden pain that may last for just a few days or for as long as three months. It is often related to an illness, injury, or a medical procedure. Acute pain may be mild, moderate, or severe. Pain can make it hard for you to do your daily activities. It can cause anxiety and lead to other problems if it is not treated. Treatment may not take all the pain away, but it may lessen the pain so you can move around and tolerate it. Pain is best treated with medicines and other therapies such as distraction, meditation, oils from plants (aromatherapy), heat, and ice. Treatment depends on the cause of the pain and how severe it is. Acute pain usually goes away once your injury has healed or you are no longer ill. Follow these instructions at home: Medicines ??? Take fxnf-ubl-rxgiubd and prescription medicines only as told by your health care provider. ??? Take the lowest dose of medicine for the shortest amount of time needed to relieve the pain. ??? If you are taking prescription pain medicine: ? Do not stop taking the medicine suddenly. Talk to your health care provider about how and when tostop taking prescription medicine. ? Do not take more pills than told by your health care provider even if your pain is severe. ? Do not take other akzo-gwe-yfukezm pain medicines in addition to prescription pain medicine unless told by your health care provider. ? Keep your medicine in a safe place, away from children or anyone who could use it in a way that it was not prescribed. ? Ask your health care provider if the medicine prescribed to you requires you to avoid driving or using machinery. Managing pain, stiffness, and swelling ??? If told, put ice on the affected area. ? Put ice in a plastic bag. ? Place a towel between your skin and the bag. ? Leave the ice on for 20 minutes, 2?3 times a day. ??? If told, apply heat to the affected area as often as told by your health care provider. Use theheat source that your health care provider recommends, such as a moist heat pack or a heating pad. ? Place a towel between your skin and the heat source. ? Leave the heat on for 20?30 minutes. ??? If your skin turns bright red, remove the ice or heat right away to prevent skin damage. The risk of damage is higher if you cannot feel pain, heat, or cold. Managing constipation Your medicines may cause constipation. To prevent or treat constipation, you may need to: ??? Drink enough fluid to keep your urine pale yellow. ??? Take lxxp-mxo-ahqmgfi or prescription medicines. ??? Eat foods that are high in fiber, such as beans, whole grains, and fresh fruits and vegetables. ??? Limit foods that are high in fat and processed sugars, such as fried or sweet foods. Activity ??? Rest as told by your health care provider. ??? Return to your normal activities as told by your health care provider. Ask your health care provider what activities are safe for you. ??? Ask your health care provider if doing physical therapy exercises to improve movement and strength can help you manage your pain. General instructions ??? Check your pain level as told by your health care provider. ??? Ask your health care provider if distraction, relaxation, or aromatherapy can help you manage your pain. ??? Keep all follow-up visits. Your health care provider will monitor your pain level. Contact a health care provider if: ??? Your pain is not controlled by medicine. ??? Your pain does not improve or gets worse. ??? You have side effects from pain medicines. Get help right away if: ??? You have severe pain. ??? You have trouble breathing. ??? You faint, or another person sees you faint. ??? You have chest pain or pressure that lasts for more than a few minutes, or if you have other symptoms along with chest pain, including: ? Pain or discomfort in one or both arms, your back, neck, jaw, or stomach. ? Shortness of breath. ? A cold sweat. ? Nausea. ? Feeling light-headed. These symptoms may be an emergency. Get help right away. Call 911. ??? Do not wait to see if the symptoms will go away. ??? Do not drive yourself to the hospital. This information is not intended to replace advice given to you by your health care provider. Make sure you discuss any questions you have with your health care provider. Document Revised: 04/06/2023 Document Reviewed: 04/06/2023 [employer] Patient Education ? 2023 [employer]+.[facility] 11-01-2024 Evaluation + Plan noteExtracted from: Title:ED Note Author:Delia Nguyen PA-C te:11/01/24 Bilateral lower extremity ed abbe (R60.0: Localized edema) Bilateral lower extremity pain (M79.604: Pain in right leg) Generalized headache (R51.9: Headache, unspecified) Pain in left leg (M79.605: Pain in left leg) Orders: morphine, 4 mg = 1 mL, Injection, IntraMuscular, Once, Stop date 11/01/24 13:28:00 EST, STAT, Start date 11/01/24 13:28:00 EST, 11/01/24 13:28:00 EST ondansetron, 4 mg = 1 tab(s), Tab-Dis, Oral, Once, Stop date 11/01/24 13:28:00 EST, STAT, Start date 11/01/24 13:28:00 EST, 11/01/24 13:28:00 EST XR Tib/Fib Left 2 View XR Tib/Fib Right 2 View Future Scheduled Tests Laboratory* HgbA1c 09/07/24 * Vitamin D 25 Hydroxy 09/07/24 * Comprehensive Metabolic Panel 09/07/24 * Vitamin B12 Level 09/07/24 [facility] 01-29-2025 Hospital Discharge instructions Patient Education 10/24/2024 16:23:27 Muscle Strain Muscle Strain A muscle strain is an injury that occurs when a muscle is stretched beyond its normal length. Usually, a small number of muscle fibers are torn when this happens. There are three types of muscle strains. First-degree strains have the least amount of muscle fiber tearing and the least amount of pain. Second-degree and third-degree strains have more tearing and pain. Usually, recovery from muscle strain takes 1 2 weeks. Complete healing normally takes 5 6 weeks. What are the causes? This condition is caused when a sudden, violent force is placed on a muscle and stretches it too far. This may occur with a fall, while lifting, or during sports. What increases the risk? This condition is more likely to develop in athletes and people who are physically active. What are the signs or symptoms? Symptoms of this condition include: Pain. Tenderness. Bruising. Swelling. Trouble using the muscle. How is this diagnosed? This condition is diagnosed based on a physical exam and your medical history. Tests may also be done, including an X-ray, ultrasound, or MRI. How is this treated? This condition is initially treated with JOSÉ therapy. This therapy involves: Protecting the muscle from being injured again. Resting the injured muscle. Icing the injured muscle. Applying pressure (compression) to the injured muscle. This may be done with a splint or elastic bandage. Raising (elevating) the injured muscle. Your health care provider may also recommend medicine for pain. Follow these instructions at home: If you have a removable splint: Wear the splint as told by your health care provider. Remove it only as told by your health care provider. Check the skin around the splint every day. Tell your health care provider about any concerns. Loosen the splint if your fingers or toes tingle, become numb, or turn cold and blue. Keep the splint clean. If the splint is not waterproof: ?Do not let it get wet. ?Cover it with a watertight covering when you take a bath or a shower. Managing pain, stiffness, and swelling If directed, put ice on the injured area. To do this: ?If you have a removable splint, remove it as told by your health care provider. ?Put ice in a plastic bag. ?Place a towel between your skin and the bag. ?Leave the ice on for 20 minutes, 2 3 times a day. ?Remove the ice if your skin turns bright red. This is very important. If you cannot feel pain, heat, or cold, you have a greater risk of damage to the area. Move your fingers or toes often to reduce stiffness and swelling. Raise (elevate) the injured area above the level of your heart while you are sitting or lying down. Wear an elastic bandage as told by your health care provider. Make sure that it is not too tight. General instructions Take bgfs-kul-riquixu and prescription medicines only as told by your health care provider. Treatment may include muscle relaxants or medicines for pain and inflammation that are taken by mouth or applied to the skin. Restrict your activity and rest the injured muscle as told by your health care provider. Gentle movements may be allowed. If physical therapy was prescribed, do exercises as told by your health care provider. Do not put pressure on any part of the splint until it is fully hardened. This may take several hours. Do not use any products that contain nicotine or tobacco. These products include cigarettes, chewing tobacco, and vaping devices, such as e-cigarettes. If you need help quitting, ask your health careprovider. Ask your health care provider when it is safe to drive if you have a splint. Keep all follow-up visits. This is important. How is this prevented? Warm up before exercising. This helps to prevent future muscle strains. Contact a health care provider if: You have more pain or swelling in the injured area. Get help right away if: You have numbness or tingling in the injured area. You lose a lot of strength in the injured area. Summary A muscle strain is an injury that occurs when a muscle is stretched beyond its normal length. This condition is caused when a sudden, violent force is placed on a muscle and stretches it too far. This condition is initially treated with JOSÉ therapy, which involves protecting, resting, icing, compressing, and elevating. Gentle movements may be allowed. If physical therapy was prescribed, do exercises as told by your health care provider. This information is not intended to replace advice given to you by your health care provider. Make sure you discuss any questions you have with your health care provider. Document Revised: 11/30/2021 Document Reviewed: 11/30/2021 [employer] Patient Education 2023 [employer]+. Follow Up Care 10/24/2024 13:20:37 With:Kizzy Herrera Address: [address] [facility] [address] [place] [phone] Business (1) When:10/27/2024 16:13:06 Comments:Call for diagnosis based follow up With:Brigitte Garcia Address: [address], [address] [facility] [employer] [address] [place] [address]- Business (1) When:Within 3 Day(s) [facility] 01-29-2025 NoteED Patient Education Note Orthopedics Muscle Strain A muscle strain is an injury that occurs when a muscle is stretched beyond its normal length. Usually, a small number of muscle fibers are torn when this happens. There are three types of muscle strains. First-degree strains have the least amount of muscle fiber tearing and the least amount of pain. Second-degree and third-degree strains have more tearing and pain. Usually, recovery from muscle strain takes 1?2 weeks. Complete healing normally takes 5?6 weeks. What are the causes? This condition is caused when a sudden, violent force is placed on a muscle and stretches it too far. This may occur with a fall, while lifting, or during sports. What increases the risk? This condition is more likely to develop in athletes and people who are physically active. What are the signs or symptoms? Symptoms of this condition include: ??? Pain. ??? Tenderness. ??? Bruising. ??? Swelling. ??? Trouble using the muscle. How is this diagnosed? This condition is diagnosed based on a physical exam and your medical history. Tests may also be done, including an X-ray, ultrasound, or MRI. How is this treated? This condition is initially treated with JOSÉ therapy. This therapy involves: ??? Protecting the muscle from being injured again. ??? Resting the injured muscle. ??? Icing the injured muscle. ??? Applying pressure (compression) to the injured muscle. This may be done with a splint or elastic bandage. ??? Raising (elevating) the injured muscle. Your health care provider may also recommend medicine for pain. Follow these instructions at home: If you have a removable splint: ??? Wear the splint as told by your health care provider. Remove it only as told by your health care provider. ??? Check the skin around the splint every day. Tell your health care provider about any concerns. ??? Loosen the splint if your fingers or toes tingle, become numb, or turn cold and blue. ??? Keep the splint clean. ??? If the splint is not waterproof: ? Do not let it get wet. ? Cover it with a watertight covering when you take a bath or a shower. Managing pain, stiffness, and swelling ??? If directed, put ice on the injured area. To do this: ? If you have a removable splint, remove it as told by your health care provider. ? Put ice in a plastic bag. ? Place a towel between your skin and the bag. ? Leave the ice on for 20 minutes, 2?3 times a day. ? Remove the ice if your skin turns bright red. This is very important. If you cannot feel pain, heat, or cold, you have a greater risk of damage to the area. ??? Move your fingers or toes often to reduce stiffness and swelling. ??? Raise (elevate) the injured area above the level of your heart while you are sitting or lying down. ??? Wear an elastic bandage as told by your health care provider. Make sure that it is not too tight. General instructions ??? Take qefj-tmw-kmbcven and prescription medicines only as told by your health care provider. Treatment may include muscle relaxants or medicines for pain and inflammation that are taken by mouth or applied to the skin. ??? Restrict your activity and rest the injured muscle as told by your health care provider. Gentlemovements may be allowed. ??? If physical therapy was prescribed, do exercises as told by your health care provider. ??? Do not put pressure on any part of the splint until it is fully hardened. This may take severalhours. ??? Do not use any products that contain nicotine or tobacco. These products include cigarettes, chewing tobacco, and vaping devices, such as e-cigarettes. If you need help quitting, ask your health care provider. ??? Ask your health care provider when it is safe to drive if you have a splint. ??? Keep all follow-up visits. This is important. How is this prevented? Warm up before exercising. This helps to prevent future muscle strains. Contact a health care provider if: ??? You have more pain or swelling in the injured area. Get help right away if: ??? You have numbness or tingling in the injured area. ??? You lose a lot of strength in the injured area. Summary ??? A muscle strain is an injury that occurs when a muscle is stretched beyond its normal length. ??? This condition is caused when a sudden, violent force is placed on a muscle and stretches it too far. ??? This condition is initially treated with JOSÉ therapy, which involves protecting, resting, icing, compressing, and elevating. ??? Gentle movements may be allowed. If physical therapy was prescribed, do exercises as told by your health care provider. This information is not intended to replace advice given to you by your health care provider. Make sure you discuss any questions you have with your health care provider. Document Revised: 11/30/2021 Document Reviewed: 11/30/2021 [employer] Patient Education ? 2023 [employer] 10-24-2024 Evaluation + Plan noteExtracted from: Title:ED Note Author:Wes Chen PA-C te:10/24/24 Strain of left groin (S76.21 2A: Strain of adductor muscle, fascia and tendon of left thigh, initial encounter) Orders: diclofenac topical, 1 anand, Topical, QID for pain, 100 gram, Refill(s) 0, [email or web address] #[id number], 170, cm, 10/24/24 13:29:00 EST, Height/Length Dosing, 100.6, kg, 10/24/24 13:29:00 EST, Weight Dosing ibuprofen, 600 mg = 1 tab(s), Oral, q8hr, X 7 day(s), # 30 tab(s), Refills(s) 0, Pharmacy: [email or web address] #[id number], 170, cm, 10/24/24 13:29:00 EST, Height/Length Dosing, 100.6, kg, 10/24/24 13:29:00 EST, Weight Dosing Future Scheduled Tests Laboratory* HgbA1c 09/07/24 * Vitamin D 25 Hydroxy 09/07/24 * Comprehensive Metabolic Panel 09/07/24 * Vitamin B12 Level 09/07/24 [facility] [id number] Telephone encounter Note* Telephone Encounter - Rubia Driver RN - 10/23/2024 2:07 PM EST Patient left vm that she needed to talk to Dr. Viera or a nurse and that it was very important. Called patient back but only received vm but vm box was not set up so unable to leave message Will try calling again [facility]01-28-2025 Miscellaneous Notes* Telephone Encounter - Rubia Drivre RN - 10/23/2024 2:07 PM EST Patient left vm that she needed to talk to Dr. Viera or a nurse and that it was very important. Called patient back but only received vm but vm box was not set up so unable to leave message Will try calling again [facility] Discharge instructions Patient Education 10/14/2024 14:06:55 Muscle Strain Muscle Strain A muscle strain is an injury that occurs when a muscle is stretched beyond its normal length. Usually, a small number of muscle fibers are torn when this happens. There are three types of muscle strains. First-degree strains have the least amount of muscle fiber tearing and the least amount of pain. Second-degree and third-degree strains have more tearing and pain. Usually, recovery from muscle strain takes 1 2 weeks. Complete healing normally takes 5 6 weeks. What are the causes? This condition is caused when a sudden, violent force is placed on a muscle and stretches it too far. This may occur with a fall, while lifting, or during sports. What increases the risk? This condition is more likely to develop in athletes and people who are physically active. What are the signs or symptoms? Symptoms of this condition include: Pain. Tenderness. Bruising. Swelling. Trouble using the muscle. How is this diagnosed? This condition is diagnosed based on a physical exam and your medical history. Tests may also be done, including an X-ray, ultrasound, or MRI. How is this treated? This condition is initially treated with JOSÉ therapy. This therapy involves: Protecting the muscle from being injured again. Resting the injured muscle. Icing the injured muscle. Applying pressure (compression) to the injured muscle. This may be done with a splint or elastic bandage. Raising (elevating) the injured muscle. Your health care provider may also recommend medicine for pain. Follow these instructions at home: If you have a removable splint: Wear the splint as told by your health care provider. Remove it only as told by your health care provider. Check the skin around the splint every day. Tell your health care provider about any concerns. Loosen the splint if your fingers or toes tingle, become numb, or turn cold and blue. Keep the splint clean. If the splint is not waterproof: ?Do not let it get wet. ?Cover it with a watertight covering when you take a bath or a shower. Managing pain, stiffness, and swelling If directed, put ice on the injured area. To do this: ?If you have a removable splint, remove it as told by your health care provider. ?Put ice in a plastic bag. ?Place a towel between your skin and the bag. ?Leave the ice on for 20 minutes, 2 3 times a day. ?Remove the ice if your skin turns bright red. This is very important. If you cannot feel pain, heat, or cold, you have a greater risk of damage to the area. Move your fingers or toes often to reduce stiffness and swelling. Raise (elevate) the injured area above the level of your heart while you are sitting or lying down. Wear an elastic bandage as told by your health care provider. Make sure that it is not too tight. General instructions Take xmoc-kwt-sshiqge and prescription medicines only as told by your health care provider. Treatment may include muscle relaxants or medicines for pain and inflammation that are taken by mouth or applied to the skin. Restrict your activity and rest the injured muscle as told by your health care provider. Gentle movements may be allowed. If physical therapy was prescribed, do exercises as told by your health care provider. Do not put pressure on any part of the splint until it is fully hardened. This may take several hours. Do not use any products that contain nicotine or tobacco. These products include cigarettes, chewing tobacco, and vaping devices, such as e-cigarettes. If you need help quitting, ask your health careprovider. Ask your health care provider when it is safe to drive if you have a splint. Keep all follow-up visits. This is important. How is this prevented? Warm up before exercising. This helps to prevent future muscle strains. Contact a health care provider if: You have more pain or swelling in the injured area. Get help right away if: You have numbness or tingling in the injured area. You lose a lot of strength in the injured area. Summary A muscle strain is an injury that occurs when a muscle is stretched beyond its normal length. This condition is caused when a sudden, violent force is placed on a muscle and stretches it too far. This condition is initially treated with JOSÉ therapy, which involves protecting, resting, icing, compressing, and elevating. Gentle movements may be allowed. If physical therapy was prescribed, do exercises as told by your health care provider. This information is not intended to replace advice given to you by your health care provider. Make sure you discuss any questions you have with your health care provider. Document Revised: 11/30/2021 Document Reviewed: 11/30/2021 [employer] Patient Education 2023 [employer] Follow Up Care 10/14/2024 12:03:20 With:Brigitte Garcia Address: [facility] [place] [id number] Business (1) When:10/17/2024 13:58:48 Comments:Return to the emergency room if your pain gets worse or any new symptoms. [facility] 01-19-2025 NoteED Patient Education Note Orthopedics Muscle Strain A muscle strain is an injury that occurs when a muscle is stretched beyond its normal length. Usually, a small number of muscle fibers are torn when this happens. There are three types of muscle strains. First-degree strains have the least amount of muscle fiber tearing and the least amount of pain. Second-degree and third-degree strains have more tearing and pain. Usually, recovery from muscle strain takes 1?2 weeks. Complete healing normally takes 5?6 weeks. What are the causes? This condition is caused when a sudden, violent force is placed on a muscle and stretches it too far. This may occur with a fall, while lifting, or during sports. What increases the risk? This condition is more likely to develop in athletes and people who are physically active. What are the signs or symptoms? Symptoms of this condition include: ??? Pain. ??? Tenderness. ??? Bruising. ??? Swelling. ??? Trouble using the muscle. How is this diagnosed? This condition is diagnosed based on a physical exam and your medical history. Tests may also be done, including an X-ray, ultrasound, or MRI. How is this treated? This condition is initially treated with JOSÉ therapy. This therapy involves: ??? Protecting the muscle from being injured again. ??? Resting the injured muscle. ??? Icing the injured muscle. ??? Applying pressure (compression) to the injured muscle. This may be done with a splint or elastic bandage. ??? Raising (elevating) the injured muscle. Your health care provider may also recommend medicine for pain. Follow these instructions at home: If you have a removable splint: ??? Wear the splint as told by your health care provider. Remove it only as told by your health care provider. ??? Check the skin around the splint every day. Tell your health care provider about any concerns. ??? Loosen the splint if your fingers or toes tingle, become numb, or turn cold and blue. ??? Keep the splint clean. ??? If the splint is not waterproof: ? Do not let it get wet. ? Cover it with a watertight covering when you take a bath or a shower. Managing pain, stiffness, and swelling ??? If directed, put ice on the injured area. To do this: ? If you have a removable splint, remove it as told by your health care provider. ? Put ice in a plastic bag. ? Place a towel between your skin and the bag. ? Leave the ice on for 20 minutes, 2?3 times a day. ? Remove the ice if your skin turns bright red. This is very important. If you cannot feel pain, heat, or cold, you have a greater risk of damage to the area. ??? Move your fingers or toes often to reduce stiffness and swelling. ??? Raise (elevate) the injured area above the level of your heart while you are sitting or lying down. ??? Wear an elastic bandage as told by your health care provider. Make sure that it is not too tight. General instructions ??? Take lsyj-unr-hzmlvzk and prescription medicines only as told by your health care provider. Treatment may include muscle relaxants or medicines for pain and inflammation that are taken by mouth or applied to the skin. ??? Restrict your activity and rest the injured muscle as told by your health care provider. Gentlemovements may be allowed. ??? If physical therapy was prescribed, do exercises as told by your health care provider. ??? Do not put pressure on any part of the splint until it is fully hardened. This may take severalhours. ??? Do not use any products that contain nicotine or tobacco. These products include cigarettes, chewing tobacco, and vaping devices, such as e-cigarettes. If you need help quitting, ask your health care provider. ??? Ask your health care provider when it is safe to drive if you have a splint. ??? Keep all follow-up visits. This is important. How is this prevented? Warm up before exercising. This helps to prevent future muscle strains. Contact a health care provider if: ??? You have more pain or swelling in the injured area. Get help right away if: ??? You have numbness or tingling in the injured area. ??? You lose a lot of strength in the injured area. Summary ??? A muscle strain is an injury that occurs when a muscle is stretched beyond its normal length. ??? This condition is caused when a sudden, violent force is placed on a muscle and stretches it too far. ??? This condition is initially treated with JOSÉ therapy, which involves protecting, resting, icing, compressing, and elevating. ??? Gentle movements may be allowed. If physical therapy was prescribed, do exercises as told by your health care provider. This information is not intended to replace advice given to you by your health care provider. Make sure you discuss any questions you have with your health care provider. Document Revised: 11/30/2021 Document Reviewed: 11/30/2021 [employer] Patient Education ? 2023 [employer] 10-14-2024 Evaluation + Plan noteExtracted from: Title:ED Note Author:Haim Alanis, Dann Alvarez te:10/14/24 1. Strain of left groin (S76 .212A: Strain of adductor muscle, fascia and tendon of left thigh, initial encounter) Ordered: acetaminophen-oxycodone, 1 tab(s), Oral, q6hr as needed for pain, 12 tab(s), Refill(s) 0, [email or web address] #[id number], 170, cm, 10/14/24 12:06:00 EST, Height/Length Dosing, 99.2, kg, 10/14/24 12:06:00 EST, Weight Dosing Orders: acetaminophen-oxycodone, 1 tab(s), Tab, Oral, Once, Stop date 10/14/24 13:55:00 EST, STAT, Start date 10/14/24 13:55:00 EST cyclobenzaprine, 10 mg = 1 tab(s), Oral, TID, PRN for spasm, # 20 tab(s), Refills(s) 0, Pharmacy: [email or web address] #[id number], 170, cm, 10/14/24 12:06:00 EST, Height/Length Dosing, 99.2, kg, 10/14/24 12:06:00 EST, Weight Dosing naproxen, 500 mg = 1 tab(s), Oral, BID, # 20 tab(s), Refills(s) 0, Pharmacy: [email or web address] #[id number], 170, cm, 10/14/24 12:06:00 EST, Height/Length Dosing, 99.2, kg, 10/14/24 12:06:00 EST, Weight Dosing CT Abdomen/Pelvis w/o Contrast Future Scheduled Tests Laboratory* HgbA1c 09/07/24 * Vitamin D 25 Hydroxy 09/07/24 * Comprehensive Metabolic Panel 09/07/24 * Vitamin B12 Level 09/07/24 [facility] 01-15-2025 History of Present illness Narrative* ABDULAZIZ Blood - 10/10/2024 10:30 AM EST GENERAL HISTORY AND PHYSICAL: NAME: Jana Caballero : 1970 HISTORY OF PRESENT ILLNESS: Jana Caballero is an 53 y.o. female is here for orthopedic evaluation right lower back and sciatic pain which she has had off and on for years but most recently this last month and a half has increased to the point of having difficulty with standing upright and walking. She seems to be in minimal di scomfort when lying. She denies any recent injury prior to having her x-rays done through [facility] ordered by her primary care who has referred her here orthopedic evaluation. She had images of her sacrum as well as hips and pelvis. As well as imaging of her lumbar spine which is most pertinentfor facet hypertrophy and degenerative disc disease. She has significant scoliosis of the lower thoracic lumbar region of acute fracture bony tumor seen. PAST MEDICAL HISTORY: Past Medical History: Diagnosis Date Arthritis Cancer (CMS/HCC) Depression (CMS/HCC) Rheumatoid arthritis (CMS/HCC) Stomach ulcer PAST SURGICAL HISTORY: Past Surgical History: Procedure Laterality Date CERVIX SURGERY 2014 Cancer - Dr. Kay - [facility] SOCIAL HISTORY: Social History Occupational History Not on file Tobacco Use Smoking status: Unknown Smokeless tobacco: Never Vaping Use Vaping status: Never Used Substance and Sexual Activity Alcohol use: Never Drug use: Never Sexual activity: Not on file ALLERGIES: No Known Allergies MEDICATIONS: Current Outpatient Medications Medication Instructions cholecalciferol (VITAMIN D-3) 1,250 mcg cyanocobalamin (VITAMIN B-12) 1,000 mcg, Daily ferrous sulfate 325 (65 Fe) MG EC tablet meloxicam (MOBIC) 7.5 mg, Daily Oyster Shell Calcium 500 MG tablet 2 tablets, 2 times daily REVIEW OF SYSTEMS: Review of Systems General: Denies appetite or significant weight change. Denies fever, chills or night sweats. Denies lightheadedness. ENT: Denies dry mouth, sore throat or swollen glands. Denies difficulty swallowing. Denies ear pain. Respiratory: Denies chest pain, SOB, cough or wheezing. Denies asthma or pneumonia symptoms. Cardiovascular: Denies CP or palpitations. No syncope or dyspnea on exertion. Gastrointestinal: Denies nausea or vomiting. Denies heartburn or abdominal pain. Denies diarrhea. Genitourinary: Denies frequent or painful urination. Musculoskeletal: See HPI for comments. Integumentary: Denies rash, lesion or skin infection. Neurologic: Denies dizziness, headache or seizure history. Vitals: Body mass index is 34.33 kg/m . PHYSICAL EXAM: Physical Exam Orders Placed This Encounter Procedures Ambulatory referral to Physical Therapy Standing Status: Future Standing Expiration Date: 04/09/2025 Referral Priority: Routine Referral Type: Rehabilitation - Outpatient Referral Reason: Specialty Services Required Referred to Provider: Alexx Portillo, PT Requested Specialty: Physical Therapy Number of Visits Requested: 1 Imaging from [facility] was reviewed showing multiple level degenerative disc disease and facet hypertrophy no evidence of acute fracture. ASSESSMENT: Degeneration of intervertebral disc of lumbosacral region with discogenic back pain and lower extremity pain Chronic right-sided low back pain with right-sided sciatica PLAN: Do home exercise stretches 2 to 3 times a day use cold pack to the lower back and gluteal region for 20 minutes several times a day and before bedtime. We will plan on following up in 3 weeks after you have taken the course of prednisone over the next 15 days and keep a log on your symptoms and any improvement the have. We will then consider getting MRI for definitive evaluation of the lower backand spinal nerves that exited this region causing the sciatica. 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 May supplement with Tylenol during the daytime for breakthrough discomfort. ABDULAZIZ Blood documented in this encounterSaint John's Health [id number] Instructions* Patient Instructions* ABDULAZIZ Blood - 10/10/2024 10:30 AM EST Do home exercise stretches 2 to 3 times a day use cold pack to the lower back and gluteal region for 20 minutes several times a day and before bedtime. We will plan on following up in 3 weeks after you have taken the course of prednisone over the next 15 days and keep a log on your symptoms and any improvement the have. We will then consider getting MRI for definitive evaluation of the lower backand spinal nerves that exited this region causing the sciatica. 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 May supplement with Tylenol during the daytime for breakthrough discomfort. documented in this encounterSaint John's Health [id number] NoteNonvisit Note - PT Pt. no showed to today's PT evaluation.[facility]12-13-2024 Hospital Discharge instructions Patient Education 09/07/2024 12:22:28 Scoliosis Scoliosis Scoliosis is a condition in which the spine curves sideways. Normally, the spine does not do this. With scoliosis, the spine may curve to the left, to the right, or in both directions. The curve of the spine is measured by angles in degrees. Scoliosis can affect people at any age, but it is more common among children and adolescents. What are the causes? The cause of scoliosis is not always known. It may be caused by: A defect. A disease that can affect muscles or body balance, such as cerebral palsy or muscular dystrophy. What are the signs or symptoms? This condition may not cause any symptoms. If you do have symptoms, they may include: Leaning to one side. Sunken chest and uneven shoulders. One side of the body being different or larger than the other side (asymmetry). An abnormal curve in the back. Pain. This may limit physical activity. Shortness of breath. Bowel or bladder control problems, such as not knowing when you have to go. This can be a sign of nerve damage. How is this diagnosed? This condition is diagnosed based on: Your medical history. Your symptoms. A physical exam. This may include: ?Examining your nerves, muscles, and reflexes (neurological exam). ?Testing the movement of your spine (range of motion study). Imaging tests, such as: ?X-rays. ?An MRI. How is this treated? Treatment for this condition depends on the severity of your symptoms. Treatment may include: A back brace to prevent scoliosis from getting worse. This may be needed during times of fast growth (growth spurts), such as during adolescence. Physical therapy. This involves movements and exercises to strengthen the back. NSAIDs to help relieve back pain, such as aspirin, ibuprofen, and naproxen. Surgery. Follow these instructions at home: Activity Exercise regularly. Ask your health care provider what activities and exercises are best for you. Keeping your back strong and flexible may help your symptoms and prevent your condition from getting worse. If physical therapy was prescribed, do exercises as told. Maintain good posture. You may have to avoid lifting. Ask your health care provider how much you can safely lift. Before starting any new sport or physical activity, ask your health care provider if it is safe foryou. If you have a removable brace: Wear the brace as told by your health care provider. Remove it only as told by your health care provider. Check the skin around the brace every day. Tell your health care provider about any concerns. Keep the brace clean and dry. General instructions Take oijh-rmc-oslbmht and prescription medicines only as told by your health care provider. Keep all follow-up visits. Your health care provider will monitor your condition over time to watchfor signs that it is getting worse and change your treatment plan as needed. Where to find more information National Scoliosis Foundation: scoliosis.org Contact a health care provider if: Medicine does not help your back pain. Get help right away if: You lose control of your legs or you cannot walk. You lose control of your bladder or bowels. You develop sudden numbness in the legs. Summary Scoliosis is a condition in which the spine curves sideways. The spine may curve to the left, to the right, or in both directions. This condition may be caused by defects or diseases that affect muscles and body balance. Exercise regularly. Ask your health care provider what activities and exercises are best for you. Keeping your back strong and flexible may help your symptoms and prevent your condition from getting worse. This information is not intended to replace advice given to you by your health care provider. Make sure you discuss any questions you have with your health care provider. Document Revised: 11/25/2022 Document Reviewed: 11/25/2022 [employer] Patient Education 2023 [employer] 09/07/2024 12:22:25 Osteoarthritis Osteoarthritis Osteoarthritis is a type of arthritis. It refers to joint pain or joint disease. Osteoarthritis affects tissue that covers the ends of bones in joints (cartilage). Cartilage acts as a cushion betweenthe bones and helps them move smoothly. Osteoarthritis occurs when cartilage in the joints gets worn down. Osteoarthritis is sometimes called wear and tear arthritis. Osteoarthritis is the most common form of arthritis. It often occurs in older people. It is a condition that gets worse over time. The joints most often affected by this condition are in the fingers,toes, hips, knees, and spine, including the neck and lower back. What are the causes? This condition is caused by the wearing down of cartilage that covers the ends of bones. What increases the risk? The following factors may make you more likely to develop this condition: Being age 50 or older. Obesity. Overuse of joints. Past injury of a joint. Past surgery on a joint. Family history of osteoarthritis. What are the signs or symptoms? The main symptoms of this condition are pain, swelling, and stiffness in the joint. Other symptoms may include: An enlarged joint. More pain and further damage caused by small pieces of bone or cartilage that break off and float inside of the joint. Small deposits of bone (osteophytes) that grow on the edges of the joint. A grating or scraping feeling inside the joint when you move it. Popping or creaking sounds when you move. Difficulty walking or exercising. An inability to seafood and service meat manager items, twist your hand, or control the movements of your hands and fingers. How is this diagnosed? This condition may be diagnosed based on: Your medical history. A physical exam. Your symptoms. X-rays of the affected joints. Blood tests to rule out other types of arthritis. How is this treated? There is no cure for this condition, but treatment can help control pain and improve joint function. Treatment may include a combination of therapies, such as: Pain relief techniques, such as: ?Applying heat and cold to the joint. ?Massage. ?A form of talk therapy called cognitive behavioral therapy (CBT). This therapy helps you set goalsand follow up on the changes that you make. Medicines for pain and inflammation. The medicines can be taken by mouth or applied to the skin. They include: ?NSAIDs, such as ibuprofen. ?Prescription medicines. ?Strong anti-inflammatory medicines (corticosteroids). ?Certain nutritional supplements. A prescribed exercise program. You may work with a physical therapist. Assistive devices, such as a brace, wrap, splint, specialized glove, or cane. A weight control plan. Surgery, such as: ?An osteotomy. This is done to reposition the bones and relieve pain or to remove loose pieces of bone and cartilage. ?Joint replacement surgery. You may need this surgery if you have advanced osteoarthritis. Follow these instructions at home: Activity Rest your affected joints as told by your health care provider. Exercise as told by your provider. The provider may recommend specific types of exercise, such as: ?Strengthening exercises. These are done to strengthen the muscles that support joints affected by arthritis. ?Aerobic activities. These are exercises, such as brisk walking or water aerobics, that increase your heart rate. ?Jcmti-sd-cjbjyt activities. These help your joints move more easily. ?Balance and agility exercises. Managing pain, stiffness, and swelling If told, apply heat to the affected area as often as told by your provider. Use the heat source that your provider recommends, such as a moist heat pack or a heating pad. ?If you have a removable assistive device, remove it as told by your provider. ?Place a towel between your skin and the heat source. If your provider tells you to keep the assistive device on while you apply heat, place a towel between the assistive device and the heat source. ?Leave the heat on for 20 30 minutes. If told, put ice on the affected area. ?If you have a removable assistive device, remove it as told by your provider. ?Put ice in a plastic bag. ?Place a towel between your skin and the bag. If your provider tells you to keep the assistive device on during icing, place a towel between the assistive device and the bag. ?Leave the ice on for 20 minutes, 2 3 times a day. If your skin turns bright red, remove the ice or heat right away to prevent skin damage. The risk of damage is higher if you cannot feel pain, heat, or cold. Move your fingers or toes often to reduce stiffness and swelling. Raise (elevate) the affected area above the level of your heart while you are sitting or lying down. General instructions Take udyx-vko-xafukww and prescription medicines only as told by your provider. Maintain a healthy weight. Follow instructions from your provider for weight control. Do not use any products that contain nicotine or tobacco. These products include cigarettes, chewing tobacco, and vaping devices, such as e-cigarettes. If you need help quitting, ask your provider. Use assistive devices as told by your provider. Where to find more information [employer] [place] of Arthritis and Musculoskeletal and Skin Diseases: niams.nih.gov [place] on Aging: sixto.nih.gov [employer] [employer]: rheumatology.org Contact a health care provider if: You have redness, swelling, or a feeling of warmth in a joint that gets worse. You have a fever along with joint or muscle aches. You develop a rash. You have trouble doing your normal activities. You have pain that gets worse and is not relieved by pain medicine. This information is not intended to replace advice given to you by your health care provider. Make sure you discuss any questions you have with your health care provider. Document Revised: 05/12/2023 Document Reviewed: 05/12/2023 [employer] Patient Education 2023 [employer]+. 09/07/2024 12:22:23 Hypocalcemia, Adult Hypocalcemia, Adult Hypocalcemia is when the level of calcium in a person's blood is below normal. Calcium is a mineralthat is used by the body in many ways. Not having enough blood calcium can affect the nervous system. This can lead to problems with the muscles, the heart, and the brain. What are the causes? This condition may be caused by: A deficiency of vitamin D or magnesium or both. Decreased levels of parathyroid hormone (hypoparathyroidism). Kidney function problems. Low levels of a body protein called albumin. Inflammation of the pancreas (pancreatitis). Not taking in enough vitamins and minerals in the diet or having intestinal problems that interferewith absorption of nutrients. Certain medicines. What are the signs or symptoms? Symptoms of this condition may include: Numbness and tingling in the fingers, toes, or around the mouth. Muscle twitching, aches, or cramps, especially in the legs, feet, and back. Spasm of the voice box. This may make it difficult to breathe or speak. Fast heartbeats (palpitations) and abnormal heart rhythms (dysrhythmias). Shaking uncontrollably (seizures). Memory problems, confusion, or difficulty thinking. Depression, anxiety, irritability, or changes in personality. Long-term (chronic) symptoms of this condition may include: Coarse, brittle hair and nails. Dry skin or lasting skin diseases. These include psoriasis, eczema, or dermatitis. Dental cavities. Clouding of the eye lens (cataracts). Some people may not have any symptoms, especially if they have chronic hypocalcemia. How is this diagnosed? This condition is usually diagnosed with a blood test. You may also have other tests to help determine the underlying cause of the condition. This may include more blood tests and imaging tests. How is this treated? This condition may be treated with: Calcium given by mouth or through an IV. The method used for giving calcium will depend on the severity of the condition. If your condition is severe, you may need to be closely monitored in the hospital. Giving other minerals (electrolytes), such as magnesium. Other treatment will depend on the cause of the condition. Follow these instructions at home: Follow diet instructions from your health care provider or dietitian. Take supplements only as told by your health care provider. Do not take an iron supplement within 2hours of taking a calcium supplement. Keep all follow-up visits. This is important. Contact a health care provider if: You have increased muscle twitching or cramps. You have new swelling in the feet, ankles, or legs. You develop changes in mood, memory, or personality. Get help right away if: You have chest pain. You have persistent rapid or irregular heartbeats. You have trouble breathing. You faint. You start to have seizures. You have confusion. These symptoms may represent a serious problem that is an emergency. Do not wait to see if the symptoms will go away. Get medical help right away. Call your local emergency services (911 in the [place] Do not drive yourself to the hospital. Summary Hypocalcemia is when the level of calcium in a person's blood is below normal. Not having enough blood calcium can affect the nervous system. This condition may be treated with calcium given by mouth or through an IV, or by receiving other minerals. Other treatment depends on the cause of the condition. Take supplements only as told by your health care provider. Contact a health care provider if you have new or worsening symptoms. Keep all follow-up visits. This is important. This information is not intended to replace advice given to you by your health care provider. Make sure you discuss any questions you have with your health care provider. Document Revised: 02/17/2022 Document Reviewed: 02/17/2022 [employer] Patient Education 2023 [employer]+. 09/07/2024 12:22:21 Preventing Vitamin D Deficiency Preventing Vitamin D Deficiency Vitamin D deficiency is when your body does not have enough vitamin D. Vitamin D is important because it helps your body maintain calcium and phosphorus levels. It plays a navarrete role in the health of bones and teeth, reduces inflammation, and improves the body's defense system (immune system). Our bodies make vitamin D when our skin is exposed to direct sunlight. However, for many people, this may not be enough vitamin D to meet the body's needs. How can this condition affect me? If vitamin D deficiency is severe, it can cause a condition in which a person's bones become softerthan normal. In adults, this condition is called osteomalacia. In children, this condition is called rickets. Vitamin D deficiency can also cause weak or thin bones (osteoporosis) in adults. What can increase my risk? You may be at risk for a vitamin D deficiency if you: Are . Are obese. Are an older adult. Have dark skin. Take certain medicines that affect the way vitamin D is absorbed. Have had a surgery in which a part of the stomach or a part of the small intestine was removed. Other risk factors include: Having a condition that limits your ability to absorb fat, such as Crohn's disease, long-term (chronic) pancreatitis, or cystic fibrosis. Having certain conditions that are passed from parent to child (inherited). Not having access to foods rich in vitamin D. Having limited ability to move and go outside safely. Living in areas that have fewer hours of sunlight. Spending most of your day indoors, or covering your skin all the time when you are outdoors. What actions can I take to reduce my risk of a vitamin D deficiency? Knowing the best sources of vitamin D You can meet your daily vitamin D needs from: Foods. Dietary supplements. Direct exposure to natural sunlight. formula, for infants. Knowing how much vitamin D you need General recommendations for daily vitamin D intake vary by these categories: Infants: 400 international units (IU). Children older than 1 year: 600 international units. Adults: 600 international units. and women: 600 international units. Adults older than 70 years: 800 international units. These are minimum levels of recommended amounts. Your health care provider may recommend a different amount of vitamin D intake based on your specific needs and your overall health. Getting sun exposure Get regular, safe exposure to natural sunlight. Expose your skin to direct sunlight for at least 15minutes every day. If you have dark skin, you may need to expose your skin for a longer period of time. Protect your skin from too much sun exposure. This helps to prevent skin cancer. Ask your health care provider if regular sun exposure is safe for you. Do not use a tanning bed. Eating and drinking Eat foods that naturally contain vitamin D. These include: ?Beef liver. ?Eggs. The vitamin D is in the yolk. ?Fish, such as salmon or trout. ?Mushrooms that were treated with UV light. Eat or drink products that have vitamin D added to them (are fortified). These may include: ?Cereals. ?Milk, including plant-based alternatives such as almond, soy, or oat milks. ?[place] juice. ?Margarine. When choosing foods, check the food label on the package to see: ?How much vitamin D is in the item. ?If the food is fortified with vitamin D. The items listed above may not be a complete list of foods and beverages you can eat and drink. Contact a dietitian for more information. Taking supplements and medicines If you are at risk for vitamin D deficiency, or if you have certain diseases, your health care provider may recommend that you take a vitamin D supplement. Make sure you: Talk with your health care provider before you start taking any vitamin D supplements. You may be more sensitive to the side effects of vitamin D supplements if you are on certain medicines or have certain medical conditions. Tell your health care provider about all medicines you are taking, including vitamins, herbs, eye drops, creams, and dlhg-pyx-kccmlxu medicines. Take zysk-jos-pptufsx and prescription medicines only as told by your health care provider. Take supplements only as told by your health care provider. To increase absorption of your supplement, take it with a meal or snack. Summary Vitamin D plays a navarrete role in the health of bones and teeth, reduces inflammation, and improves thebody's defense system (immune system). A vitamin D deficiency can put you at risk of developing conditions such as rickets or osteoporosis. Our bodies make vitamin D when our skin is exposed to direct sunlight. However, for many people, this may not be enough vitamin D to meet the body's needs. Some foods naturally contain vitamin D, including beef liver, egg yolk, and fish. Eat or drink products that have vitamin D added to them (are fortified). This information is not intended to replace advice given to you by your health care provider. Make sure you discuss any questions you have with your health care provider. Document Revised: 06/18/2022 Document Reviewed: 06/18/2022 [employer] Patient Education 2023 [employer]+. 09/07/2024 12:22:19 High Triglycerides Eating Plan High Triglycerides Eating Plan Triglycerides are a type of fat in the blood. High levels of triglycerides can increase your risk of heart disease and stroke. If your triglyceride levels are high, choosing the right foods can help lower your triglycerides and keep your heart healthy. Work with your health care provider or a dietitian to develop an eating plan that is right for you. What are tips for following this plan? General guidelines Lose weight, if you are overweight. For most people, losing 5 10 lb (2 5 kg) helps lower triglyceride levels. A weight-loss plan may include: ?30 minutes of exercise at least 5 days a week. ?Reducing the amount of calories, sugar, and fat you eat. Eat a wide variety of fresh fruits, vegetables, and whole grains. These foods are high in fiber. Eat foods that contain healthy fats, such as fatty fish, nuts, seeds, and olive oil. Avoid foods that are high in added sugar, added salt (sodium), and saturated fat. Avoid low-fiber, refined carbohydrates such as white bread, crackers, noodles, and white rice. Avoid foods with trans fats or partially hydrogenated oils, such as fried foods or stick margarine. If you drink alcohol: ?Limit how much you have to: ?0 1 drink a day for women who are not . ? 0 2 drinks a day for men. ?Your health care provider may recommend that you drink less than these amounts depending on your overall health. ?Know how much alcohol is in a drink. In the [place] one drink equals one 12 oz bottle of beer (355 mL), one 5 oz glass of wine (148 mL), or one 1 oz glass of hard liquor (44 mL). Reading food labels Check food labels for: The amount of saturated fat. Choose foods with no or very little saturated fat (less than 2 g). The amount of trans fat. Choose foods with no transfat. The amount of cholesterol. Choose foods that are low in cholesterol. The amount of sodium. Choose foods with less than 140 milligrams (mg) per serving. Shopping Buy dairy products labeled as nonfat (skim) or low-fat (1%). Avoid buying processed or prepackaged foods. These are often high in added sugar, sodium, and fat. Cooking Choose healthy fats when cooking, such as olive oil, avocado oil, or canola oil. Cook foods using lower fat methods, such as baking, broiling, boiling, or grilling. Make your own sauces, dressings, and marinades when possible, instead of buying them. Store-bought sauces, dressings, and marinades are often high in sodium and sugar. Meal planning Eat more home-cooked food and less restaurant, buffet, and fast food. Eat fatty fish at least 2 times each week. Examples of fatty fish include salmon, trout, sardines, mackerel, tuna, and mayes. If you eat whole eggs, do not eat more than 4 egg yolks per week. What foods should I eat? Fruits All fresh, canned (in natural juice), or frozen fruits. Vegetables Fresh or frozen vegetables. Low-sodium canned vegetables. Grains Whole wheat or whole grain breads, crackers, cereals, and pasta. Unsweetened oatmeal. Bulgur. Barley. Quinoa. Brown rice. Whole wheat flour tortillas. Meats and other proteins Skinless chicken or turkey. Ground chicken or turkey. Lean cuts of pork, trimmed of fat. Fish and seafood, especially salmon, trout, and mayes. Egg whites. Dried beans, peas, or lentils. Unsalted nuts or seeds. Unsalted canned beans. Natural peanut or almond butter or other nut butters. Dairy Low-fat dairy products. Skim or low-fat (1%) milk. Reduced fat (2%) and low- sodium cheese. Low-fat ricotta cheese. Low-fat cottage cheese. Plain, low-fat yogurt. Fats and oils Tub margarine without trans fats. Light or reduced-fat mayonnaise. Light or reduced-fat salad dressings. Avocado. Safflower, olive, sunflower, soybean, and canola oils. The items listed above may not be a complete list of recommended foods and beverages. Talk with your dietitian about what dietary choices are best for you. What foods should I avoid? Fruits Sweetened dried fruit. Canned fruit in syrup. Fruit juice. Vegetables Creamed or fried vegetables. Vegetables in a cheese sauce. Grains White bread. White (regular) pasta. White rice. Cornbread. Bagels. Pastries. Crackers that contain trans fat. Meats and other proteins Fatty cuts of meat. Ribs. Chicken wings. [place]. Sausage. Bologna. Salami. Chitterlings. Fatback. Hot dogs. Bratwurst. Packaged lunch meats. Dairy Whole or reduced-fat (2%) milk. Yrxf-azv-mjah. Cream cheese. Full-fat or sweetened yogurt. Full-fatcheese. Nondairy creamers. Whipped toppings. Processed cheese or cheese spreads. Cheese curds. Fats and oils Butter. Stick margarine. Lard. Shortening. Ghee. [place] fat. Tropical oils, such as coconut, palm kernel, or palm oils. Beverages Alcohol. Sweetened drinks, such as soda, lemonade, fruit drinks, or punches. Sweets and desserts [place] syrup. Sugars. Honey. Molasses. Candy. Jam and jelly. Syrup. Sweetened cereals. Cookies. Pies.Cakes. Donuts. Muffins. Ice cream. Condiments Store-bought sauces, dressings, and marinades that are high in sugar, such as ketchup and barbecue sauce. The items listed above may not be a complete list of foods and beverages you should avoid. Talk with your dietitian about what dietary choices are best for you. Summary High levels of triglycerides can increase the risk of heart disease and stroke. Choosing the right foods can help lower your triglycerides. Eat plenty of fresh fruits, vegetables, and whole grains. Choose low-fat dairy and lean meats. Eat fatty fish at least twice a week. Avoid processed and prepackaged foods with added sugar, sodium, saturated fat, and trans fat. If you need suggestions or have questions about what types of food are good for you, talk with yourhealth care provider or a dietitian. This information is not intended to replace advice given to you by your health care provider. Make sure you discuss any questions you have with your health care provider. Document Revised: 01/22/2022 Document Reviewed: 01/22/2022 [employer] Patient Education 2023 [employer] 09/07/2024 12:22:14 Carbohydrate Counting for Diabetes Mellitus, Adult Carbohydrate Counting for Diabetes Mellitus, Adult Carbohydrate counting is a method of keeping track of how many carbohydrates you eat. Eating carbohydrates increases the amount of sugar (glucose) in the blood. Counting how many carbohydrates you eat improves how well you manage your blood glucose. This, in turn, helps you manage your diabetes. Carbohydrates are measured in grams (g) per serving. It is important to know how many carbohydrates(in grams or by serving size) you can have in each meal. This is different for every person. A dietitian can help you make a meal plan and calculate how many carbohydrates you should have at each meal and snack. What foods contain carbohydrates? Carbohydrates are found in the following foods: Grains, such as breads and cereals. Dried beans and soy products. Starchy vegetables, such as potatoes, peas, and corn. Fruit and fruit juices. Milk and yogurt. Sweets and snack foods, such as cake, cookies, candy, chips, and soft drinks. How do I count carbohydrates in foods? There are two ways to count carbohydrates in food. You can read food labels or learn standard serving sizes of foods. You can use either of these methods or a combination of both. Using the Nutrition Facts label The Nutrition Facts list is included on the labels of almost all packaged foods and beverages in the [place]. It includes: The serving size. Information about nutrients in each serving, including the grams of carbohydrate per serving. To use the Nutrition Facts, decide how many servings you will have. Then, multiply the number of servings by the number of carbohydrates per serving. The resulting number is the total grams of carbohydrates that you will be having. Learning the standard serving sizes of foods When you eat carbohydrate foods that are not packaged or do not include Nutrition Facts on the label, you need to measure the servings in order to count the grams of carbohydrates. Measure the foods that you will eat with a food scale or measuring cup, if needed. Decide how many standard-size servings you will eat. Multiply the number of servings by 15. For foods that contain carbohydrates, one serving equals 15 g of carbohydrates. ?For example, if you eat 2 cups or 10 oz (300 g) of strawberries, you will have eaten 2 servings and 30 g of carbohydrates (2 servings x 15 g = 30 g). For foods that have more than one food mixed, such as soups and casseroles, you must count the carbohydrates in each food that is included. The following list contains standard serving sizes of common carbohydrate-rich foods. Each of theseservings has about 15 g of carbohydrates: 1 slice of bread. 1 six-inch (15 cm) tortilla. ? cup or 2 oz (53 g) cooked rice or pasta. cup or 3 oz (85 g) cooked or canned, drained and rinsed beans or lentils. cup or 3 oz (85 g) starchy vegetable, such as peas, corn, or squash. cup or 4 oz (120 g) hot cereal. cup or 3 oz (85 g) boiled or mashed potatoes, or or 3 oz (85 g) of a large baked potato. cup or 4 fl oz (118 mL) fruit juice. 1 cup or 8 fl oz (237 mL) milk. 1 small or 4 oz (106 g) apple. or 2 oz (63 g) of a medium banana. 1 cup or 5 oz (150 g) strawberries. 3 cups or 1 oz (28.3 g) popped popcorn. What is an example of carbohydrate counting? To calculate the grams of carbohydrates in this sample meal, follow the steps shown below. Sample meal 3 oz (85 g) chicken breast. ? cup or 4 oz (106 g) brown rice. cup or 3 oz (85 g) corn. 1 cup or 8 fl oz (237 mL) milk. 1 cup or 5 oz (150 g) strawberries with sugar-free whipped topping. Carbohydrate calculation 1.Identify the foods that contain carbohydrates: Rice. [place]. Milk. Strawberries. 2.Calculate how many servings you have of each food: 2 servings rice. 1 serving corn. 1 serving milk. 1 serving strawberries. 3.Multiply each number of servings by 15 servings rice x 15 g = 30 g. 1 serving corn x 15 g = 15 g. 1 serving milk x 15 g = 15 g. 1 serving strawberries x 15 g = 15 g. 4.Add together all of the amounts to find the total grams of carbohydrates eaten: 30 g + 15 g + 15 g + 15 g = 75 g of carbohydrates total. What are tips for following this plan? Shopping Develop a meal plan and then make a shopping list. Buy fresh and frozen vegetables, fresh and frozen fruit, dairy, eggs, beans, lentils, and whole grains. Look at food labels. Choose foods that have more fiber and less sugar. Avoid processed foods and foods with added sugars. Meal planning Aim to have the same number of grams of carbohydrates at each meal and for each snack time. Plan to have regular, balanced meals and snacks. Where to find more information [place] [employer]: diabetes.org Centers for Disease Control and Prevention: cdc.gov Academy of Nutrition and Dietetics: eatright.org Association of Diabetes Care & Education Specialists: diabeteseducator.org Summary Carbohydrate counting is a method of keeping track of how many carbohydrates you eat. Eating carbohydrates increases the amount of sugar (glucose) in your blood. Counting how many carbohydrates you eat improves how well you manage your blood glucose. This helpsyou manage your diabetes. A dietitian can help you make a meal plan and calculate how many carbohydrates you should have at each meal and snack. This information is not intended to replace advice given to you by your health care provider. Make sure you discuss any questions you have with your health care provider. Document Revised: 04/15/2021 Document Reviewed: 04/15/2021 [employer] Patient Education 2023 [employer] 09/07/2024 12:22:12 Prediabetes Prediabetes Prediabetes is when your blood sugar (blood glucose) level is higher than normal but not high enough for you to be diagnosed with type 2 diabetes. Having prediabetes puts you at risk for developing type 2 diabetes (type 2 diabetes mellitus). With certain lifestyle changes, you may be able to prevent or delay the onset of type 2 diabetes. This is important because type 2 diabetes can lead to serious complications, such as: Heart disease. Stroke. Blindness. Kidney disease. Depression. Poor circulation in the feet and legs. In severe cases, this could lead to surgical removal of a leg (amputation). What are the causes? The exact cause of prediabetes is not known. It may result from insulin resistance. Insulin resistance develops when cells in the body do not respond properly to insulin that the body makes. This cancause excess glucose to build up in the blood. High blood glucose (hyperglycemia) can develop. What increases the risk? The following factors may make you more likely to develop this condition: You have a family member with type 2 diabetes. You are older than 45 years. You had a temporary form of diabetes during a (gestational diabetes). You had polycystic ovary syndrome (PCOS). You are overweight or obese. You are inactive (sedentary). You have a history of heart disease, including problems with cholesterol levels, high levels of blood fats, or high blood pressure. What are the signs or symptoms? You may have no symptoms. If you do have symptoms, they may include: Increased hunger. Increased thirst. Increased urination. Vision changes, such as blurry vision. Tiredness (fatigue). How is this diagnosed? This condition can be diagnosed with blood tests. Your blood glucose may be checked with one or more of the following tests: A fasting blood glucose (FBG) test. You will not be allowed to eat (you will fast) for at least 8 hours before a blood sample is taken. An A1C blood test (hemoglobin A1C). This test provides information about blood glucose levels over the previous 2?3 months. An oral glucose tolerance test (OGTT). This test measures your blood glucose at two points in time: ?After fasting. This is your baseline level. ?Two hours after you drink a beverage that contains glucose. You may be diagnosed with prediabetes if: Your FBG is 100?125 mg/dL (5.6 6.9 mmol/L). Your A1C level is 5.7?6.4% (39 46 mmol/mol). Your OGTT result is 140?199 mg/dL (7.8 11 mmol/L). These blood tests may be repeated to confirm your diagnosis. How is this treated? Treatment may include dietary and lifestyle changes to help lower your blood glucose and prevent type 2 diabetes from developing. In some cases, medicine may be prescribed to help lower the risk of type 2 diabetes. Follow these instructions at home: Nutrition Follow a healthy meal plan. This includes eating lean proteins, whole grains, legumes, fresh fruitsand vegetables, low-fat dairy products, and healthy fats. Follow instructions from your health care provider about eating or drinking restrictions. Meet with a dietitian to create a healthy eating plan that is right for you. Lifestyle Do moderate-intensity exercise for at least 30 minutes a day on 5 or more days each week, or as told by your health care provider. A mix of activities may be best, such as: ?Brisk walking, swimming, biking, and weight lifting. Lose weight as told by your health care provider. Losing 5 7% of your body weight can reverse insulin resistance. Do not drink alcohol if: ?Your health care provider tells you not to drink. ?You are , may be , or are planning to become . If you drink alcohol: ?Limit how much you use to: ?0 1 drink a day for women. ?0 2 drinks a day for men. ?Be aware of how much alcohol is in your drink. In the [place] one drink equals one 12 oz bottle of beer (355 mL), one 5 oz glass of wine (148 mL), or one 1 oz glass of hard liquor (44 mL). General instructions Take froi-qgt-dsutqyc and prescription medicines only as told by your health care provider. You maybe prescribed medicines that help lower the risk of type 2 diabetes. Do not use any products that contain nicotine or tobacco, such as cigarettes, e- cigarettes, and chewing tobacco. If you need help quitting, ask your health care provider. Keep all follow-up visits. This is important. Where to find more information [place] [employer] Association: www.diabetes.org Academy of Nutrition and Dietetics: www.eatright.org [place] [employer]: www.heart.org Contact a health care provider if: You have any of these symptoms: ?Increased hunger. ?Increased urination. ?Increased thirst. ?Fatigue. ?Vision changes, such as blurry vision. Get help right away if you: Have shortness of breath. Feel confused. Vomit or feel like you may vomit. Summary Prediabetes is when your blood sugar (blood glucose)level is higher than normal but not high enoughfor you to be diagnosed with type 2 diabetes. Having prediabetes puts you at risk for developing type 2 diabetes (type 2 diabetes mellitus). Make lifestyle changes such as eating a healthy diet and exercising regularly to help prevent diabetes. Lose weight as told by your health care provider. This information is not intended to replace advice given to you by your health care provider. Make sure you discuss any questions you have with your health care provider. Document Revised: 12/11/2020 Document Reviewed: 12/11/2020 [employer] Patient Education 2023 [employer]+. Follow Up Care 08/15/2024 14:30:22 With:FAHAD IN 3 MONTHS Address: When: Unknown [facility] 12-13-2024 Evaluation + Plan note Future Scheduled Tests Laboratory* HgbA1c 09/07/24 * Vitamin D 25 Hydroxy 09/07/24 * Comprehensive Metabolic Panel 09/07/24 * Vitamin B12 Level 09/07/24 [facility] 12-13-2024 NotePatient Education Endocrinology Hypocalcemia, Adult Hypocalcemia is when the level of calcium in a person's blood is below normal. Calcium is a mineralthat is used by the body in many ways. Not having enough blood calcium can affect the nervous system. This can lead to problems with the muscles, the heart, and the brain. What are the causes? This condition may be caused by: ??? A deficiency of vitamin D or magnesium or both. ??? Decreased levels of parathyroid hormone (hypoparathyroidism). ??? Kidney function problems. ??? Low levels of a body protein called albumin. ??? Inflammation of the pancreas (pancreatitis). ??? Not taking in enough vitamins and minerals in the diet or having intestinal problems that interfere with absorption of nutrients. ??? Certain medicines. What are the signs or symptoms? Symptoms of this condition may include: ??? Numbness and tingling in the fingers, toes, or around the mouth. ??? Muscle twitching, aches, or cramps, especially in the legs, feet, and back. ??? Spasm of the voice box. This may make it difficult to breathe or speak. ??? Fast heartbeats (palpitations) and abnormal heart rhythms (dysrhythmias). ??? Shaking uncontrollably (seizures). ??? Memory problems, confusion, or difficulty thinking. ??? Depression, anxiety, irritability, or changes in personality. Long-term (chronic) symptoms of this condition may include: ??? Coarse, brittle hair and nails. ??? Dry skin or lasting skin diseases. These include psoriasis, eczema, or dermatitis. ??? Dental cavities. ??? Clouding of the eye lens (cataracts). Some people may not have any symptoms, especially if they have chronic hypocalcemia. How is this diagnosed? This condition is usually diagnosed with a blood test. You may also have other tests to help determine the underlying cause of the condition. This may include more blood tests and imaging tests. How is this treated? This condition may be treated with: ??? Calcium given by mouth or through an IV. The method used for giving calcium will depend on the severity of the condition. If your condition is severe, you may need to be closely monitored in the hospital. ??? Giving other minerals (electrolytes), such as magnesium. Other treatment will depend on the cause of the condition. Follow these instructions at home: ??? Follow diet instructions from your health care provider or dietitian. ??? Take supplements only as told by your health care provider. Do not take an iron supplement within 2 hours of taking a calcium supplement. ??? Keep all follow-up visits. This is important. Contact a health care provider if: ??? You have increased muscle twitching or cramps. ??? You have new swelling in the feet, ankles, or legs. ??? You develop changes in mood, memory, or personality. Get help right away if: ??? You have chest pain. ??? You have persistent rapid or irregular heartbeats. ??? You have trouble breathing. ??? You faint. ??? You start to have seizures. ??? You have confusion. These symptoms may represent a serious problem that is an emergency. Do not wait to see if the symptoms will go away. Get medical help right away. Call your local emergency services (911 in the [place] Do not drive yourself to the hospital. Summary ??? Hypocalcemia is when the level of calcium in a person's blood is below normal. Not having enough blood calcium can affect the nervous system. ??? This condition may be treated with calcium given by mouth or through an IV, or by receiving other minerals. Other treatment depends on the cause of the condition. ??? Take supplements only as told by your health care provider. ??? Contact a health care provider if you have new or worsening symptoms. ??? Keep all follow-up visits. This is important. This information is not intended to replace advice given to you by your health care provider. Make sure you discuss any questions you have with your health care provider. Document Revised: 02/17/2022 Document Reviewed: 02/17/2022 [employer] Patient Education ? 2023 [employer] Carbohydrate Counting for Diabetes Mellitus, Adult Carbohydrate counting is a method of keeping track of how many carbohydrates you eat. Eating carbohydrates increases the amount of sugar (glucose) in the blood. Counting how many carbohydrates you eat improves how well you manage your blood glucose. This, in turn, helps you manage your diabetes. Carbohydrates are measured in grams (g) per serving. It is important to know how many carbohydrates(in grams or by serving size) you can have in each meal. This is different for every person. A dietitian can help you make a meal plan and calculate how many carbohydrates you should have at each meal and snack. What foods contain carbohydrates? Carbohydrates are found in the following foods: ??? Grains, such as breads and cereals. ??? Dried beans and soy pr (more content not included)...[facility]12-12-2024 NoteNonvisit Note - PT Pt. no showed for today's PT evaluation. -- [facility] Hospital Discharge instructions Patient Education 08/25/2024 01:59:34 Kidney Stones, Skga-od-Fddk Kidney Stones Kidney stones are rock-like masses that form inside of the kidneys. Kidneys are organs that make pee (urine). A kidney stone may move into other parts of the urinary tract, including: The tubes that connect the kidneys to the bladder (ureters). The bladder. The tube that carries urine out of the body (urethra). Kidney stones can cause very bad pain and can block the flow of pee. The stone usually leaves your body through your pee. A doctor may need to take out the stone. What are the causes? Kidney stones may be caused by: Too much calcium in the body. This may be caused by too much parathyroid hormone in the blood. Uric acid crystals in the bladder. The body makes uric acid when you eat certain foods. Narrowing of one or both of the ureters. A kidney blockage that you were born with. Past surgery on the kidney or the ureters. What increases the risk? You are more likely to develop this condition if: You have had a kidney stone in the past. Other people in your family have had kidney stones. You do not drink enough water. You eat a diet that is high in protein, salt (sodium), or sugar. You are very overweight (obese). What are the signs or symptoms? Symptoms of a kidney stone may include: Pain in the side of the belly, right below the ribs. Pain usually spreads to the groin. Needing to pee often or right away. Pain when peeing. Blood in your pee. Feeling like you may vomit (nauseous). Vomiting. Fever and chills. How is this treated? Treatment depends on the size, location, and makeup of the kidney stones. The stones will often pass out of the body when you pee. You may need to: Drink more fluid to help pass the stone. ?In some cases, you may be given fluids through an IV tube at the hospital. Take medicine for pain. Change your diet to help keep kidney stones from coming back. Sometimes, you may need: A procedure to break up kidney stones using a beam of light (laser) or shock waves. Surgery to remove the kidney stones. Follow these instructions at home: Medicines Take dbbg-kzr-afxtmmu and prescription medicines only as told by your doctor. Ask your doctor if the medicine prescribed to you requires you to avoid driving or using machinery. Eating and drinking Drink enough fluid to keep your pee pale yellow. ?You may be told to drink at least 8 10 glasses of water each day. This will help you pass the stone. If told by your doctor, change your diet. You may be told to: ?Limit how much salt you eat. ?Eat more fruits and vegetables. ?Limit how much meat, poultry, fish, and eggs you eat. Follow instructions from your doctor about what you may eat and drink. General instructions Collect pee samples as told by your doctor. You may need to collect a pee sample: ?24 hours after a stone comes out. ?8 12 weeks after a stone comes out, and every 6 12 months after that. Strain your pee every time you pee. Use the strainer that your doctor recommends. Do not throw out the stone. Keep it so that it can be tested by your doctor. Keep all follow-up visits. You may need X-rays and ultrasounds to make sure the stone has come out. How is this prevented? To prevent another kidney stone: Drink enough fluid to keep your pee pale yellow. This is the best way to prevent kidney stones. Eat healthy foods. Avoid certain foods as told by your doctor. You may be told to eat less protein. Stay at a healthy weight. Where to find more information National Kidney Foundation (NKF): kidney.org [facility] (UCF): urologyhealth.org Contact a doctor if: You have pain that gets worse or does not get better with medicine. Get help right away if: You have a fever or chills. You get very bad pain. You get new pain in your belly. You faint. You cannot pee. This information is not intended to replace advice given to you by your health care provider. Make sure you discuss any questions you have with your health care provider. Document Revised: 05/06/2023 Document Reviewed: 05/06/2023 [employer] Patient Education 2023 [employer]+. Follow Up Care 08/24/2024 23:18:51 With:Beatriz Davies Address:Unknown When:08/28/2024 Comments:Take the Flomax once daily until you have completed the course. You can use the pain medication, nausea medication as prescribed as needed for pain and nausea. Please follow-up with your primary caredoctor for further evaluation and management. Please return to the ED for any new or worsening symptoms. With:Brigitte Garcia Address: [address] [facility], [facility] [employer] [address] [phone]- Business (1) When:08/28/2024 [facility] 11-30-2024 NoteED Patient Education Note Urology Kidney Stones Kidney stones are rock-like masses that form inside of the kidneys. Kidneys are organs that make pee (urine). A kidney stone may move into other parts of the urinary tract, including: ??? The tubes that connect the kidneys to the bladder (ureters). ??? The bladder. ??? The tube that carries urine out of the body (urethra). Kidney stones can cause very bad pain and can block the flow of pee. The stone usually leaves your body through your pee. A doctor may need to take out the stone. What are the causes? Kidney stones may be caused by: ??? Too much calcium in the body. This may be caused by too much parathyroid hormone in the blood. ??? Uric acid crystals in the bladder. The body makes uric acid when you eat certain foods. ??? Narrowing of one or both of the ureters. ??? A kidney blockage that you were born with. ??? Past surgery on the kidney or the ureters. What increases the risk? You are more likely to develop this condition if: ??? You have had a kidney stone in the past. ??? Other people in your family have had kidney stones. ??? You do not drink enough water. ??? You eat a diet that is high in protein, salt (sodium), or sugar. ??? You are very overweight (obese). What are the signs or symptoms? Symptoms of a kidney stone may include: ??? Pain in the side of the belly, right below the ribs. Pain usually spreads to the groin. ??? Needing to pee often or right away. ??? Pain when peeing. ??? Blood in your pee. ??? Feeling like you may vomit (nauseous). ??? Vomiting. ??? Fever and chills. How is this treated? Treatment depends on the size, location, and makeup of the kidney stones. The stones will often pass out of the body when you pee. You may need to: ??? Drink more fluid to help pass the stone. ? In some cases, you may be given fluids through an IV tube at the hospital. ??? Take medicine for pain. ??? Change your diet to help keep kidney stones from coming back. Sometimes, you may need: ??? A procedure to break up kidney stones using a beam of light (laser) or shock waves. ??? Surgery to remove the kidney stones. Follow these instructions at home: Medicines ??? Take pwjx-src-cdazseb and prescription medicines only as told by your doctor. ??? Ask your doctor if the medicine prescribed to you requires you to avoid driving or using machinery. Eating and drinking ??? Drink enough fluid to keep your pee pale yellow. ? You may be told to drink at least 8?10 glasses of water each day. This will help you pass the stone. ??? If told by your doctor, change your diet. You may be told to: ? Limit how much salt you eat. ? Eat more fruits and vegetables. ? Limit how much meat, poultry, fish, and eggs you eat. ??? Follow instructions from your doctor about what you may eat and drink. General instructions ??? Collect pee samples as told by your doctor. You may need to collect a pee sample: ? 24 hours after a stone comes out. ? 8?12 weeks after a stone comes out, and every 6?12 months after that. ??? Strain your pee every time you pee. Use the strainer that your doctor recommends. ??? Do not throw out the stone. Keep it so that it can be tested by your doctor. ??? Keep all follow-up visits. You may need X-rays and ultrasounds to make sure the stone has come out. How is this prevented? To prevent another kidney stone: ??? Drink enough fluid to keep your pee pale yellow. This is the best way to prevent kidney stones. ??? Eat healthy foods. ??? Avoid certain foods as told by your doctor. You may be told to eat less protein. ??? Stay at a healthy weight. Where to find more information ??? National Kidney Foundation (NKF): kidney.org ??? [facility] Care Foundation (UCF): urologyhealth.org Contact a doctor if: ??? You have pain that gets worse or does not get better with medicine. Get help right away if: ??? You have a fever or chills. ??? You get very bad pain. ??? You get new pain in your belly. ??? You faint. ??? You cannot pee. This information is not intended to replace advice given to you by your health care provider. Make sure you discuss any questions you have with your health care provider. Document Revised: 05/06/2023 Document Reviewed: 05/06/2023 [employer] Patient Education ? 2023 [facility] 08-24-2024 Evaluation + Plan noteExtracted from: Title:ED Note Author:Micah Greer DO Date :08/24/24 Colic, ureteral (N23: Unspec ified renal colic) Ordered: acetaminophen-oxycodone, 1 tab(s), Oral, q6hr for 3 day(s), 12 tab(s), Refill(s) 0, [facility] #[id number], 170, cm, 08/24/24 23:22:00 EST, Height/Length Dosing, 101, kg, 08/24/24 23:22:00 EST, Weight Dosing Orders: ondansetron, 4 mg = 1 tab(s), Oral, q6hr, # 12 tab(s), Refills(s) 0, Pharmacy: [facility] #[id number], 170, cm, 08/24/24 23:22:00 EST, Height/Length Dosing, 101, kg, 08/24/24 23:22:00 EST, Weight Dosing ondansetron, 4 mg = 1 tab(s), Tab-Dis, Oral, Once, Stop date 08/25/24 1:14:00 EST, STAT, Start date 08/25/24 1:14:00 EST, 08/25/24 1:14:00 EST oxycodone, 1 EA, Tab, Oral, Once, Stop date 08/25/24 1:14:00 EST, STAT, Start date 08/25/24 1:14:00 EST tamsulosin, 0.4 mg = 1 cap(s), Oral, Daily, # 10 cap(s), Refills(s) 0, Pharmacy: [facility] #[id number], 170, cm, 08/24/24 23:22:00 EST, Height/Length Dosing, 101, kg, 08/24/24 23:22:00 EST, Weight Dosing Basic Metabolic Panel CBC w/ Auto Diff CT Abdomen/Pelvis w/o Contrast eGFR Extra Blue Tube Extra SST Tube UA with Cult Rflx Urine Culture Future Appointments Appointment Date:09/07/2024 11:20:00 AM Scheduled Provider:Brigitte Carpenter Location:[facility] Appointment Type: Open Diagnostic Tests Pending * Urine Culture 08/24/24 Future Scheduled Tests Laboratory* U Protein/Creat Ratio 12/08/23 * HgbA1c 12/08/23 * Albumin Level Urine 12/08/23 * TIBC Calculated 12/08/23 * Urinalysis 12/08/23 * Vitamin D 25 Hydroxy 12/08/23 * Comprehensive Metabolic Panel 08/15/24 * Ferritin 12/08/23 * Iron Level 12/08/23 * Lipase Level 08/15/24 * Lipid Panel 12/08/23 * Reticulocyte Count 12/08/23 * Thyroid Stimulating Hormone 12/08/23 * Vitamin B12 Level 12/08/23 Radiology* XR Spine Lumbar Complete Including Bending 08/15/24 * XR Hip 2-3 Views Left + Pelvis 08/15/24 * MA Mamm Screen w/CAD if perf and 3D Tye 12/08/23 [facility] 11-20-2024 Hospital Discharge instructions Patient Education 08/15/2024 14:30:43 Sciatica Rehab Sciatica Rehab Ask your health care provider which exercises are safe for you. Do exercises exactly as told by your health care provider and adjust them as directed. It is normal to feel mild stretching, pulling, tightness, or discomfort as you do these exercises. Stop right away if you feel sudden pain or your pain gets worse. Do not begin these exercises until told by your health care provider. Stretching and edezu-ee-bhovry exercises These exercises warm up your muscles and joints and improve the movement and flexibility of your hips and back. These exercises also help to relieve pain, numbness, and tingling. Sciatic nerve glide 1.Sit in a chair with your head facing down toward your chest. Place your hands behind your back. Let your shoulders slump forward. 2.Slowly straighten one of your legs while you tilt your head back as if you are looking toward theceiling. Only straighten your leg as far as you can without making your symptoms worse. 3.Hold this position for seconds. 4.Slowly return your leg and head back to the starting position. 5.Repeat with your other leg. Repeat times. Complete this exercise times a day. Knee to chest with hip adduction and internal rotation 1.Lie on your back on a firm surface with both legs straight. 2.Bend one of your knees and move it up toward your chest until you feel a gentle stretch in your lower back and buttock. Then, move your knee toward the shoulder that is on the opposite side from your leg. This is hip adduction and internal rotation. Hold your leg in this position by holding on to the front of your knee. 3.Hold this position for seconds. 4.Slowly return to the starting position. 5.Repeat with your other leg. Repeat times. Complete this exercise times a day. Prone extension on elbows 1.Lie on your abdomen on a firm surface. A bed may be too soft for this exercise. 2.Prop yourself up on your elbows. 3.Use your arms to help lift your chest up until you feel a gentle stretch in your abdomen and yourlower back. This will place some of your body weight on your elbows. If this is uncomfortable, try stacking pillows under your chest. Your hips should stay down, against the surface that you are lying on. Keep your hip and back muscles relaxed. 4.Hold this position for seconds. 5.Slowly relax your upper body and return to the starting position. Repeat times. Complete this exercise times a day. Strengthening exercises These exercises build strength and endurance in your back. Endurance is the ability to use your muscles for a long time, even after they get tired. Pelvic tilt This exercise strengthens the muscles that lie deep in the abdomen. 1.Lie on your back on a firm surface. Bend your knees and keep your feet flat on the surface. 2.Tense your abdominal muscles. Tip your pelvis up toward the ceiling and flatten your lower back into the firm surface. To help with this exercise, you may place a small towel under your lower back and try to push your back into the towel. 3.Hold this position for seconds. 4.Let your muscles relax completely before you repeat this exercise. Repeat times. Complete this exercise times a day. Alternating arm and leg raises 1.Get on your hands and knees on a firm surface. If you are on a hard floor, you may want to use padding, such as an exercise mat, to cushion your knees. 2.Line up your arms and legs. Your hands should be directly below your shoulders, and your knees should be directly below your hips. 3.Lift your left leg behind you. At the same time, raise your right arm and straighten it in front of you. Do not lift your leg higher than your hip. Do not lift your arm higher than your shoulder. Keep your abdominal and back muscles tight. Keep your hips facing the ground. Do not arch your back. Keep your balance carefully, and do not hold your breath. 4.Hold this position for seconds. 5.Slowly return to the starting position. 6.Repeat with your right leg and your left arm. Repeat times. Complete this exercise times a day. Posture and body mechanics Good posture and healthy body mechanics can help to relieve stress in your body's tissues and joints. Body mechanics refers to the movements and positions of your body while you do your daily activities. Posture is part of body mechanics. Good posture means: Your spine is in its natural S-curve position (neutral). Your shoulders are pulled back slightly. Your head is not tipped forward. Follow these guidelines to improve your posture and body mechanics in your everyday activities. Standing When standing, keep your spine neutral and your feet about hip width apart. Keep a slight bend in your knees. Your ears, shoulders, and hips should line up. When you do a task in which you brake lining curer one place for a long time, place one foot up on a stable object that is 2 4 inches (5 10 cm) high, such as a footstool. This helps keep your spine neutral. Sitting When sitting, keep your spine neutral and keep your feet flat on the floor. Use a footrest, if necessary, and keep your thighs parallel to the floor. Avoid rounding your shoulders, and avoid tilting your head forward. When working at a desk or a computer, keep your desk at a height where your hands are slightly lower than your elbows. Slide your chair under your desk so you are close enough to maintain good posture. When working at a computer, place your monitor at a height where you are looking straight ahead andyou do not have to tilt your head forward or downward to look at the screen. Resting When lying down and resting, avoid positions that are most painful for you. If you have pain with activities such as sitting, bending, stooping, or squatting, lie in a position in which your body does not bend very much. For example, avoid curling up on your side with your arms and knees near your chest ( position). If you have pain with activities such as standing for a long time or reaching with your arms, lie with your spine in a neutral position and bend your knees slightly. Try the following positions: ?Lying on your side with a pillow between your knees. ?Lying on your back with a pillow under your knees. Lifting When lifting objects, keep your feet at least shoulder width apart and tighten your abdominal muscles. Bend your knees and hips and keep your spine neutral. It is important to lift using the strength ofyour legs, not your back. Do not lock your knees straight out. Always ask for help to lift heavy or awkward objects. This information is not intended to replace advice given to you by your health care provider. Make sure you discuss any questions you have with your health care provider. Document Revised: 12/21/2022 Document Reviewed: 12/21/2022 [employer] Patient Education 2023 [facility] 08/15/2024 14:30:37 Back Exercises Back Exercises The following exercises strengthen the muscles that help to support the trunk (torso) and back. They also help to keep the lower back flexible. Doing these exercises can help to prevent or lessen existing low back pain. If you have back pain or discomfort, try doing these exercises 2 3 times each day or as told by your health care provider. As your pain improves, do them once each day, but increase the number of times that you repeat the steps for each exercise (do more repetitions). To prevent the recurrence of back pain, continue to do these exercises once each day or as told by your health care provider. Do exercises exactly as told by your health care provider and adjust them as directed. It is normalto feel mild stretching, pulling, tightness, or discomfort as you do these exercises, but you should stop right away if you feel sudden pain or your pain gets worse. Exercises Single knee to chest Repeat these steps 3 5 times for each le.Lie on your back on a firm bed or the floor with your legs extended. 2.Bring one knee to your chest. Your other leg should stay extended and in contact with the floor. 3.Hold your knee in place by grabbing your knee or thigh with both hands and hold. 4.Pull on your knee until you feel a gentle stretch in your lower back or buttocks. 5.Hold the stretch for 10 30 seconds. 6.Slowly release and straighten your leg. Pelvic tilt Repeat these steps 5 10 times: 1.Lie on your back on a firm bed or the floor with your legs extended. 2.Bend your knees so they are pointing toward the ceiling and your feet are flat on the floor. 3.Tighten your lower abdominal muscles to press your lower back against the floor. This motion willtilt your pelvis so your tailbone points up toward the ceiling instead of pointing to your feet or the floor. 4.With gentle tension and even breathing, hold this position for 5 10 seconds. Cat-cow Repeat these steps until your lower back becomes more flexible: 1.Get into a lasgx-drt-rpubx position on a firm bed or the floor. Keep your hands under your shoulders, and keep your knees under your hips. You may place padding under your knees for comfort. 2.Let your head hang down toward your chest. Contract your abdominal muscles and point your tailbone toward the floor so your lower back becomes rounded like the back of a cat. 3.Hold this position for 5 seconds. 4.Slowly lift your head, let your abdominal muscles relax, and point your tailbone up toward the ceiling so your back forms a sagging arch like the back of a cow. 5.Hold this position for 5 seconds. Press-ups Repeat these steps 5 10 times: 1.Lie on your abdomen (face-down) on a firm bed or the floor. 2.Place your palms near your head, about shoulder-width apart. 3.Keeping your back as relaxed as possible and keeping your hips on the floor, slowly straighten your arms to raise the top half of your body and lift your shoulders. Do not use your back muscles to raise your upper torso. You may adjust the placement of your hands to make yourself more comfortable. 4.Hold this position for 5 seconds while you keep your back relaxed. 5.Slowly return to lying flat on the floor. Bridges Repeat these steps 10 times: 1.Lie on your back on a firm bed or the floor. 2.Bend your knees so they are pointing toward the ceiling and your feet are flat on the floor. Yourarms should be flat at your sides, next to your body. 3.Tighten your buttocks muscles and lift your buttocks off the floor until your waist is at almost the same height as your knees. You should feel the muscles working in your buttocks and the back of your thighs. If you do not feel these muscles, slide your feet 1 2 inches (2.5 5 cm) farther away from your buttocks. 4.Hold this position for 3 5 seconds. 5.Slowly lower your hips to the starting position, and allow your buttocks muscles to relax completely. If this exercise is too easy, try doing it with your arms crossed over your chest. Abdominal crunches Repeat these steps 5 10 times: 1.Lie on your back on a firm bed or the floor with your legs extended. 2.Bend your knees so they are pointing toward the ceiling and your feet are flat on the floor. 3.Cross your arms over your chest. 4.Tip your chin slightly toward your chest without bending your neck. 5.Tighten your abdominal muscles and slowly raise your torso high enough to lift your shoulder blades a tiny bit off the floor. Avoid raising your torso higher than that because it can put too much stress on your lower back and does not help to strengthen your abdominal muscles. 6.Slowly return to your starting position. Back lifts Repeat these steps 5 10 times: 1.Lie on your abdomen (face-down) with your arms at your sides, and rest your forehead on the floor. 2.Tighten the muscles in your legs and your buttocks. 3.Slowly lift your chest off the floor while you keep your hips pressed to the floor. Keep the backof your head in line with the curve in your back. Your eyes should be looking at the floor. 4.Hold this position for 3 5 seconds. 5.Slowly return to your starting position. Contact a health care provider if: Your back pain or discomfort gets much worse when you do an exercise. Your worsening back pain or discomfort does not lessen within 2 hours after you exercise. If you have any of these problems, stop doing these exercises right away. Do not do them again unless your health care provider says that you can. Get help right away if: You develop sudden, severe back pain. If this happens, stop doing the exercises right away. Do not do them again unless your health care provider says that you can. This information is not intended to replace advice given to you by your health care provider. Make sure you discuss any questions you have with your health care provider. Document Revised: 10/16/2023 Document Reviewed: 11/25/2021 [employer] Patient Education 2023 [facility] 08/15/2024 14:30:31 Osteoarthritis Osteoarthritis Osteoarthritis is a type of arthritis. It refers to joint pain or joint disease. Osteoarthritis affects tissue that covers the ends of bones in joints (cartilage). Cartilage acts as a cushion betweenthe bones and helps them move smoothly. Osteoarthritis occurs when cartilage in the joints gets worn down. Osteoarthritis is sometimes called wear and tear arthritis. Osteoarthritis is the most common form of arthritis. It often occurs in older people. It is a condition that gets worse over time. The joints most often affected by this condition are in the fingers,toes, hips, knees, and spine, including the neck and lower back. What are the causes? This condition is caused by the wearing down of cartilage that covers the ends of bones. What increases the risk? The following factors may make you more likely to develop this condition: Being age 50 or older. Obesity. Overuse of joints. Past injury of a joint. Past surgery on a joint. Family history of osteoarthritis. What are the signs or symptoms? The main symptoms of this condition are pain, swelling, and stiffness in the joint. Other symptoms may include: An enlarged joint. More pain and further damage caused by small pieces of bone or cartilage that break off and float inside of the joint. Small deposits of bone (osteophytes) that grow on the edges of the joint. A grating or scraping feeling inside the joint when you move it. Popping or creaking sounds when you move. Difficulty walking or exercising. An inability to seafood and service meat manager items, twist your hand, or control the movements of your hands and fingers. How is this diagnosed? This condition may be diagnosed based on: Your medical history. A physical exam. Your symptoms. X-rays of the affected joints. Blood tests to rule out other types of arthritis. How is this treated? There is no cure for this condition, but treatment can help control pain and improve joint function. Treatment may include a combination of therapies, such as: Pain relief techniques, such as: ?Applying heat and cold to the joint. ?Massage. ?A form of talk therapy called cognitive behavioral therapy (CBT). This therapy helps you set goalsand follow up on the changes that you make. Medicines for pain and inflammation. The medicines can be taken by mouth or applied to the skin. They include: ?NSAIDs, such as ibuprofen. ?Prescription medicines. ?Strong anti-inflammatory medicines (corticosteroids). ?Certain nutritional supplements. A prescribed exercise program. You may work with a physical therapist. Assistive devices, such as a brace, wrap, splint, specialized glove, or cane. A weight control plan. Surgery, such as: ?An osteotomy. This is done to reposition the bones and relieve pain or to remove loose pieces of bone and cartilage. ?Joint replacement surgery. You may need this surgery if you have advanced osteoarthritis. Follow these instructions at home: Activity Rest your affected joints as told by your health care provider. Exercise as told by your provider. The provider may recommend specific types of exercise, such as: ?Strengthening exercises. These are done to strengthen the muscles that support joints affected by arthritis. ?Aerobic activities. These are exercises, such as brisk walking or water aerobics, that increase your heart rate. ?Ngqgr-ls-uiboxg activities. These help your joints move more easily. ?Balance and agility exercises. Managing pain, stiffness, and swelling If told, apply heat to the affected area as often as told by your provider. Use the heat source that your provider recommends, such as a moist heat pack or a heating pad. ?If you have a removable assistive device, remove it as told by your provider. ?Place a towel between your skin and the heat source. If your provider tells you to keep the assistive device on while you apply heat, place a towel between the assistive device and the heat source. ?Leave the heat on for 20 30 minutes. If told, put ice on the affected area. ?If you have a removable assistive device, remove it as told by your provider. ?Put ice in a plastic bag. ?Place a towel between your skin and the bag. If your provider tells you to keep the assistive device on during icing, place a towel between the assistive device and the bag. ?Leave the ice on for 20 minutes, 2 3 times a day. If your skin turns bright red, remove the ice or heat right away to prevent skin damage. The risk of damage is higher if you cannot feel pain, heat, or cold. Move your fingers or toes often to reduce stiffness and swelling. Raise (elevate) the affected area above the level of your heart while you are sitting or lying down. General instructions Take nlxw-dfb-iuuvqob and prescription medicines only as told by your provider. Maintain a healthy weight. Follow instructions from your provider for weight control. Do not use any products that contain nicotine or tobacco. These products include cigarettes, chewing tobacco, and vaping devices, such as e-cigarettes. If you need help quitting, ask your provider. Use assistive devices as told by your provider. Where to find more information [employer] [place] [employer] and Musculoskeletal and Skin Diseases: niams.nih.gov [place] on Aging: sixto.nih.gov [employer]: rheumatology.org Contact a health care provider if: You have redness, swelling, or a feeling of warmth in a joint that gets worse. You have a fever along with joint or muscle aches. You develop a rash. You have trouble doing your normal activities. You have pain that gets worse and is not relieved by pain medicine. This information is not intended to replace advice given to you by your health care provider. Make sure you discuss any questions you have with your health care provider. Document Revised: 05/12/2023 Document Reviewed: 05/12/2023 [employer] Patient Education 2023 [facility] 08/15/2024 14:30:30 Anemia Anemia Anemia is a condition in which there are not enough red blood cells or hemoglobin in the blood. Hemoglobin is a substance in red blood cells that carries oxygen. When you do not have enough red blood cells or hemoglobin (are anemic), your body cannot get enoughoxygen, and your organs may not work properly. As a result, you may feel very tired or have other problems. What are the causes? Common causes of anemia include: Excessive bleeding. Anemia can be caused by excessive bleeding inside or outside the body, including bleeding from the intestines or from heavy menstrual periods in females. Poor nutrition. Long-lasting (chronic) kidney, thyroid, and liver disease. Bone marrow disorders, spleen problems, and blood disorders. Cancer and treatments for cancer. Human immunodeficiency virus (HIV) and acquired immunodeficiency syndrome (AIDS). Infections, medicines, and autoimmune disorders that destroy red blood cells. What are the signs or symptoms? Symptoms of this condition include: Minor weakness. Dizziness. Headache, or difficulties concentrating and sleeping. Heartbeats that feel irregular or faster than normal (palpitations). Shortness of breath, especially with exercise. Pale skin, lips, and nails, or cold hands and feet. Upset stomach (indigestion) and nausea. Symptoms may occur suddenly or develop slowly. If your anemia is mild, you may not have symptoms. How is this diagnosed? This condition is diagnosed based on blood tests, your medical history, and a physical exam. In some cases, a test may be needed in which cells are removed from the soft tissue inside of a bone and looked at under a microscope (bone marrow biopsy). Your health care provider may also check your stool (feces) for blood and may do more testing to look for the cause of your bleeding. Other tests may include: Imaging tests, such as a CT scan or MRI. A procedure to see inside your esophagus and stomach (endoscopy). The esophagus is the part of the body that moves food from your mouth to your stomach. A procedure to see inside your colon and rectum (colonoscopy). How is this treated? Treatment for this condition depends on the cause. If you continue to lose a lot of blood, you may need to be treated at a hospital. Treatment may include: Taking supplements of iron, vitamin B12, or folic acid. Taking a hormone medicine (erythropoietin) that can help to stimulate red blood cell growth. Receiving donated blood through an IV (blood transfusion). This may be needed if you lose a lot of blood. Making changes to your diet. Having surgery to remove your spleen. Follow these instructions at home: Take cjkk-ise-fsjyvyy and prescription medicines only as told by your health care provider. Take supplements only as told by your health care provider. Follow any diet instructions that you were given by your health care provider. Keep all follow-up visits. Your health care provider will want to recheck your blood tests. Contact a health care provider if: You develop new bleeding anywhere in the body. You are very weak. Get help right away if: You are short of breath. You have pain in your abdomen or chest. You are dizzy or feel faint. You have trouble concentrating. You have bloody stools, black stools, or tarry stools. You vomit repeatedly or you vomit up blood. These symptoms may be an emergency. Get help right away. Call 911. Do not wait to see if the symptoms will go away. Do not drive yourself to the hospital. Summary Anemia is a condition in which you do not have enough red blood cells or enough of a substance in your red blood cells that carries oxygen. Symptoms may occur suddenly or develop slowly. If your anemia is mild, you may not have symptoms. This condition is diagnosed with blood tests, a medical history, and a physical exam. Other tests may be needed. Treatment for this condition depends on the cause of the anemia. This information is not intended to replace advice given to you by your health care provider. Make sure you discuss any questions you have with your health care provider. Document Revised: 12/06/2022 Document Reviewed: 12/06/2022 [employer] Patient Education 2023 [employer] 08/15/2024 14:30:27 Exercising to Lose Weight Exercising to Lose Weight Getting regular exercise is important for everyone. It is especially important if you are overweight. Being overweight increases your risk of heart disease, stroke, diabetes, high blood pressure, andseveral types of cancer. Exercising, and reducing the calories you consume, can help you lose weight and improve fitness and health. Exercise can be moderate or vigorous intensity. To lose weight, most people need to do a certain amount of moderate or vigorous-intensity exercise each week. How can exercise affect me? You lose weight when you exercise enough to burn more calories than you eat. Exercise also reduces body fat and builds muscle. The more muscle you have, the more calories you burn. Exercise also: Improves mood. Reduces stress and tension. Improves your overall fitness, flexibility, and endurance. Increases bone strength. Moderate-intensity exercise Moderate-intensity exercise is any activity that gets you moving enough to burn at least three times more energy (calories) than if you were sitting. Examples of moderate exercise include: Walking a mile in 15 minutes. Doing light yard work. Biking at an easy pace. Most people should get at least 150 minutes of moderate-intensity exercise a week to maintain theirbody weight. Vigorous-intensity exercise Vigorous-intensity exercise is any activity that gets you moving enough to burn at least six times more calories than if you were sitting. When you exercise at this intensity, you should be working hard enough that you are not able to carry on a conversation. Examples of vigorous exercise include: Running. Playing a team sport, such as football, basketball, and soccer. Jumping rope. Most people should get at least 75 minutes a week of vigorous exercise to maintain their body weight. What actions can I take to lose weight? The amount of exercise you need to lose weight depends on: Your age. The type of exercise. Any health conditions you have. Your overall physical ability. Talk to your health care provider about how much exercise you need and what types of activities aresafe for you. Nutrition Make changes to your diet as told by your health care provider or diet and customer sales specialist (dietitian). This may include: ?Eating fewer calories. ?Eating more protein. ?Eating less unhealthy fats. ?Eating a diet that includes fresh fruits and vegetables, whole grains, low-fat dairy products, andlean protein. ?Avoiding foods with added fat, salt, and sugar. Drink plenty of water while you exercise to prevent dehydration or heat stroke. Activity Choose an activity that you enjoy and set realistic goals. Your health care provider can help you make an exercise plan that works for you. Exercise at a moderate or vigorous intensity most days of the week. ?The intensity of exercise may vary from person to person. You can tell how intense a workout is for you by paying attention to your breathing and heartbeat. Most people will notice their breathing and heartbeat get faster with more intense exercise. Do resistance training twice each week, such as: ?Push-ups. ?Sit-ups. ?Lifting weights. ?Using resistance bands. Getting short amounts of exercise can be just as helpful as long, structured periods of exercise. If you have trouble finding time to exercise, try doing these things as part of your daily routine: ?Get up, stretch, and walk around every 30 minutes throughout the day. ?Go for a walk during your lunch break. ?Park your car farther away from your destination. ?If you take public transportation, get off one stop early and walk the rest of the way. ?Make phone calls while standing up and walking around. ?Take the stairs instead of elevators or escalators. Wear comfortable clothes and shoes with good support. Do not exercise so much that you hurt yourself, feel dizzy, or get very short of breath. Where to find more information [place] Department of Health and Human Services: www.hhs.gov Centers for Disease Control and Prevention: www.cdc.gov Contact a health care provider: Before starting a new exercise program. If you have questions or concerns about your weight. If you have a medical problem that keeps you from exercising. Get help right away if: You have any of the following while exercising: ?Injury. ?Dizziness. ?Difficulty breathing or shortness of breath that does not go away when you stop exercising. ?Chest pain. ?Rapid heartbeat. These symptoms may represent a serious problem that is an emergency. Do not wait to see if the symptoms will go away. Get medical help right away. Call your local emergency services (911 in the [place] Do not drive yourself to the hospital. Summary Getting regular exercise is especially important if you are overweight. Being overweight increases your risk of heart disease, stroke, diabetes, high blood pressure, and several types of cancer. Losing weight happens when you burn more calories than you eat. Reducing the amount of calories you eat, and getting regular moderate or vigorous exercise each week, helps you lose weight. This information is not intended to replace advice given to you by your health care provider. Make sure you discuss any questions you have with your health care provider. Document Revised: 11/08/2021 Document Reviewed: 11/08/2021 [employer] Patient Education 2023 [employer] 08/15/2024 14:30:25 Obesity, Adult Obesity, Adult Obesity is the condition of having too much total body fat. Being overweight or obese means that your weight is greater than what is considered healthy for your body size. Obesity is determined by a measurement called BMI (body mass index). BMI is an estimate of body fat and is calculated from height and weight. For adults, a BMI of 30 or higher is considered obese. Obesity can lead to other health concerns and major illnesses, including: Stroke. Coronary artery disease (CAD). Type 2 diabetes. Some types of cancer, including cancers of the colon, breast, uterus, and gallbladder. High blood pressure (hypertension). High cholesterol. Gallbladder stones. Obesity can also contribute to: Osteoarthritis. Sleep apnea. Infertility problems. What are the causes? Common causes of this condition include: Eating daily meals that are high in calories, sugar, and fat. Drinking high amounts of sugar-sweetened beverages, such as soft drinks. Being born with genes that may make you more likely to become obese. Having a medical condition that causes obesity, including: ?Hypothyroidism. ?Polycystic ovarian syndrome (PCOS). ?Binge-eating disorder. ?Sherly syndrome. Taking certain medicines, such as steroids, antidepressants, and seizure medicines. Not being physically active (sedentary lifestyle). Not getting enough sleep. What increases the risk? The following factors may make you more likely to develop this condition: Having a family history of obesity. Living in an area with limited access to: ?Shine, recreation centers, or sidewalks. ?Healthy food choices, such as grocery stores and farmers' markets. What are the signs or symptoms? The main sign of this condition is having too much body fat. How is this diagnosed? This condition is diagnosed based on: Your BMI. If you are an adult with a BMI of 30 or higher, you are considered obese. Your waist circumference. This measures the distance around your waistline. Your skinfold thickness. Your health care provider may gently pinch a fold of your skin and measureit. You may have other tests to check for underlying conditions. How is this treated? Treatment for this condition often includes changing your lifestyle. Treatment may include some or all of the following: Dietary changes. This may include developing a healthy meal plan. Regular physical activity. This may include activity that causes your heart to beat faster (aerobicexercise) and strength training. Work with your health care provider to design an exercise program that works for you. Medicine to help you lose weight if you are unable to lose one pound a week after six weeks of healthy eating and more physical activity. Treating conditions that cause the obesity (underlying conditions). Surgery. Surgical options may include gastric banding and gastric bypass. Surgery may be done if: ?Other treatments have not helped to improve your condition. ?You have a BMI of 40 or higher. ?You have life-threatening health problems related to obesity. Follow these instructions at home: Eating and drinking Follow recommendations from your health care provider about what you eat and drink. Your health care provider may advise you to: ?Limit fast food, sweets, and processed snack foods. ?Choose low-fat options, such as low-fat milk instead of whole milk. ?Eat five or more servings of fruits or vegetables every day. ?Choose healthy foods when you eat out. ?Keep low-fat snacks available. ?Limit sugary drinks, such as soda, fruit juice, sweetened iced tea, and flavored milk. Drink enough water to keep your urine pale yellow. Do not follow a fad diet. Fad diets can be unhealthy and even dangerous. Other healthful choices include: ?Eat at home more often. This gives you more control over what you eat. ?Learn to read food labels. This will help you understand how much food is considered one serving. ?Learn what a healthy serving size is. Physical activity Exercise regularly, as told by your health care provider. ?Most adults should get up to 150 minutes of moderate-intensity exercise every week. ?Ask your health care provider what types of exercise are safe for you and how often you should exercise. Warm up and stretch before being active. Cool down and stretch after being active. Rest between periods of activity. Lifestyle Work with your health care provider and a dietitian to set a weight-loss goal that is healthy and reasonable for you. Limit your screen time. Find ways to reward yourself that do not involve food. Do not drink alcohol if: ?Your health care provider tells you not to drink. ?You are , may be , or are planning to become . If you drink alcohol: ?Limit how much you have to: ?0 1 drink a day for women. ?0 2 drinks a day for men. ?Know how much alcohol is in your drink. In the [place] one drink equals one 12 oz bottle of beer (355 mL), one 5 oz glass of wine (148 mL), or one 1 oz glass of hard liquor (44 mL). General instructions Keep a weight-loss journal to keep track of the food you eat and how much exercise you get. Take vbim-tig-[id number] and prescription medicines only as told by your health care provider. Take vitamins and supplements only as told by your health care provider. Consider joining a support group. Your health care provider may be able to recommend a support group. Pay attention to your mental health as obesity can lead to depression or self esteem issues. Keep all follow-up visits. This is important. Contact a health care provider if: You are unable to meet your weight-loss goal after six weeks of dietary and lifestyle changes. You have trouble breathing. Summary Obesity is the condition of having too much total body fat. Being overweight or obese means that your weight is greater than what is considered healthy for your body size. Work with your health care provider and a dietitian to set a weight-loss goal that is healthy and reasonable for you. Exercise regularly, as told by your health care provider. Ask your health care provider what types of exercise are safe for you and how often you should exercise. This information is not intended to replace advice given to you by your health care provider. Make sure you discuss any questions you have with your health care provider. Document Revised: 04/20/2022 Document Reviewed: 04/20/2022 [employer] Patient Education 2023 [employer] 08/15/2024 14:30:21 BMI for Adults BMI for Adults Body mass index (BMI) is a number found using a person's weight and height. BMI can help tell how much of a person's weight is made up of fat. BMI does not measure body fat directly. It is used instead of tests that directly measure body fat, which can be difficult and expensive. What are BMI measurements used for? BMI is useful to: Find out if your weight puts you at higher risk for medical problems. Help recommend changes, such as in diet and exercise. This can help you reach a healthy weight. BMIscreening can be done again to see if these changes are working. How is BMI calculated? Your height and weight are measured. The BMI is found from those numbers. This can be done with [place] or metric measurements. Note that charts and online BMI calculators are available to help you findyour BMI quickly and easily without doing these calculations. To calculate your BMI in [place] measurements: 1.Measure your weight in pounds (lb). 2.Multiply the number of pounds by 703. So, for an adult who weighs 150 lb, multiply that number by 703: 150 x 703, which equals 105,450. 3.Measure your height in inches. Then multiply that number by itself to get a measurement called inches squared. So, for an adult who is 70 inches tall, the inches squared measurement is 70 inches x 70 inches, which equals 4,900 inches squared. 4.Divide the total from step 2 (number of lb x 703) by the total from step 3 (inches squared): 105,450 4,900 = 21.5. This is your BMI. To calculate your BMI in metric measurements: 1.Measure your weight in kilograms (kg). For this example, the weight is 70 kg. 2.Measure your height in meters (m). Then multiply that number by itself to get a measurement called meters squared. So, for an adult who is 1.75 m tall, the meters squared measurement is 1.75 m x 1.75 m, which equals 3.1 meters squared. 3.Divide the number of kilograms (your weight) by the meters squared number. In this example: 70 3.1 = 22.6. This is your BMI. What do the results mean? BMI charts are used to see if you are underweight, normal weight, overweight, or obese. The following guidelines will be used: Underweight: BMI less than 18.5. Normal weight: BMI between 18.5 and 24.9. Overweight: BMI between 25 and 29.9. Obese: BMI of 30 or above. BMI is a tool and cannot diagnose a condition. Talk with your health care provider about what your BMI means for you. Keep these notes in mind: Weight includes fat and muscle. Someone with a muscular build, such as an athlete, may have a BMI that is higher than 24.9. In cases like these, BMI is not a correct measure of body fat. If you have a BMI of 25 or higher, your provider may need to do more testing to find out if excess body fat is the cause. BMI is measured the same way for males and females. Females usually have more body fat than males of the same height and weight. Where to find more information For more information about BMI, including tools to quickly find your BMI, go to: Centers for Disease Control and Prevention: cdc.gov [place] [employer]: heart.org National Heart, Lung, and Blood [place]: nhlbi.nih.gov This information is not intended to replace advice given to you by your health care provider. Make sure you discuss any questions you have with your health care provider. Document Revised: 06/02/2023 Document Reviewed: 05/26/2023 [employer] Patient Education 2023 [employer] Follow Up Care 08/08/2024 13:55:47 With:Brigitte Carpenter FAM, [facility] Address: [address] [place], [place] [address] [place] [phone]- When:Within 1 Month(s) Comments:f/u labs, left hip pain, nail toes, [facility] 11-20-2024 NotePatient Education Gastroenterology Obesity, Adult Obesity is the condition of having too much total body fat. Being overweight or obese means that your weight is greater than what is considered healthy for your body size. Obesity is determined by a measurement called BMI (body mass index). BMI is an estimate of body fat and is calculated from height and weight. For adults, a BMI of 30 or higher is considered obese. Obesity can lead to other health concerns and major illnesses, including: ??? Stroke. ??? Coronary artery disease (CAD). ??? Type 2 diabetes. ??? Some types of cancer, including cancers of the colon, breast, uterus, and gallbladder. ??? High blood pressure (hypertension). ??? High cholesterol. ??? Gallbladder stones. Obesity can also contribute to: ??? Osteoarthritis. ??? Sleep apnea. ??? Infertility problems. What are the causes? Common causes of this condition include: ??? Eating daily meals that are high in calories, sugar, and fat. ??? Drinking high amounts of sugar-sweetened beverages, such as soft drinks. ??? Being born with genes that may make you more likely to become obese. ??? Having a medical condition that causes obesity, including: ? Hypothyroidism. ? Polycystic ovarian syndrome (PCOS). ? Binge-eating disorder. ? Sherly syndrome. ??? Taking certain medicines, such as steroids, antidepressants, and seizure medicines. ??? Not being physically active (sedentary lifestyle). ??? Not getting enough sleep. What increases the risk? The following factors may make you more likely to develop this condition: ??? Having a family history of obesity. ??? Living in an area with limited access to: ? Shine, recreation centers, or sidewalks. ? Healthy food choices, such as grocery stores and [employer] markets. What are the signs or symptoms? The main sign of this condition is having too much body fat. How is this diagnosed? This condition is diagnosed based on: ??? Your BMI. If you are an adult with a BMI of 30 or higher, you are considered obese. ??? Your waist circumference. This measures the distance around your waistline. ??? Your skinfold thickness. Your health care provider may gently pinch a fold of your skin and measure it. You may have other tests to check for underlying conditions. How is this treated? Treatment for this condition often includes changing your lifestyle. Treatment may include some or all of the following: ??? Dietary changes. This may include developing a healthy meal plan. ??? Regular physical activity. This may include activity that causes your heart to beat faster (aerobic exercise) and strength training. Work with your health care provider to design an exercise program that works for you. ??? Medicine to help you lose weight if you are unable to lose one pound a week after six weeks of healthy eating and more physical activity. ??? Treating conditions that cause the obesity (underlying conditions). ??? Surgery. Surgical options may include gastric banding and gastric bypass. Surgery may be done if: ? Other treatments have not helped to improve your condition. ? You have a BMI of 40 or higher. ? You have life-threatening health problems related to obesity. Follow these instructions at home: Eating and drinking ??? Follow recommendations from your health care provider about what you eat and drink. Your healthcare provider may advise you to: ? Limit fast food, sweets, and processed snack foods. ? Choose low-fat options, such as low-fat milk instead of whole milk. ? Eat five or more servings of fruits or vegetables every day. ? Choose healthy foods when you eat out. ? Keep low-fat snacks available. ? Limit sugary drinks, such as soda, fruit juice, sweetened iced tea, and flavored milk. ??? Drink enough water to keep your urine pale yellow. ??? Do not follow a fad diet. Fad diets can be unhealthy and even dangerous. ??? Other healthful choices include: ? Eat at home more often. This gives you more control over what you eat. ? Learn to read food labels. This will help you understand how much food is considered one serving. ? Learn what a healthy serving size is. Physical activity ??? Exercise regularly, as told by your health care provider. ? Most adults should get up to 150 minutes of moderate-intensity exercise every week. ? Ask your health care provider what types of exercise are safe for you and how often you should exercise. ??? Warm up and stretch before being active. ??? Cool down and stretch after being active. ??? Rest between periods of activity. Lifestyle ??? Work with your health care provider and a dietitian to set a weight-loss goal that is healthy and reasonable for you. ??? Limit your screen time. ??? Find ways to reward yourself that do not involve food. ??? Do not drink alcohol if: ? Your health care provider tells you not to drink. ? You are , may be preg (more content not included)...[facility]09-13-2024 Hospital Discharge instructions Patient Education 06/08/2024 20:01:27 Back Exercises, [id number] Back Exercises These exercises help to make your trunk and back strong. They also help to keep the lower back flexible. Doing these exercises can help to prevent or lessen pain in your lower back. If you have back pain, try to do these exercises 2 3 times each day or as told by your doctor. As you get better, do the exercises once each day. Repeat the exercises more often as told by your doctor. To stop back pain from coming back, do the exercises once each day, or as told by your doctor. Do exercises exactly as told by your doctor. Stop right away if you feel sudden pain or your pain gets worse. Exercises Single knee to chest Do these steps 3 5 times in a row for each le.Lie on your back on a firm bed or the floor with your legs stretched out. 2.Bring one knee to your chest. 3.Grab your knee or thigh with both hands and hold it in place. 4.Pull on your knee until you feel a gentle stretch in your lower back or butt. 5.Keep doing the stretch for 10 30 seconds. 6.Slowly let go of your leg and straighten it. Pelvic tilt Do these steps 5 10 times in a row: 1.Lie on your back on a firm bed or the floor with your legs stretched out. 2.Bend your knees so they point up to the ceiling. Your feet should be flat on the floor. 3.Tighten your lower belly (abdomen) muscles to press your lower back against the floor. This will make your tailbone point up to the ceiling instead of pointing down to your feet or the floor. 4.Stay in this position for 5 10 seconds while you gently tighten your muscles and breathe evenly. Cat cow Do these steps until your lower back bends more easily: 1.Get on your hands and knees on a firm bed or the floor. Keep your hands under your shoulders, andkeep your knees under your hips. You may put padding under your knees. 2.Let your head hang down toward your chest. Tighten (contract) the muscles in your belly. Point your tailbone toward the floor so your lower back becomes rounded like the back of a cat. 3.Stay in this position for 5 seconds. 4.Slowly lift your head. Let the muscles of your belly relax. Point your tailbone up toward the ceiling so your back forms a sagging arch like the back of a cow. 5.Stay in this position for 5 seconds. Press-ups Do these steps 5 10 times in a row: 1.Lie on your belly (face-down) on a firm bed or the floor. 2.Place your hands near your head, about shoulder-width apart. 3.While you keep your back relaxed and keep your hips on the floor, slowly straighten your arms to raise the top half of your body and lift your shoulders. Do not use your back muscles. You may change where you place your hands to make yourself more comfortable. 4.Stay in this position for 5 seconds. Keep your back relaxed. 5.Slowly return to lying flat on the floor. Bridges Do these steps 10 times in a row: 1.Lie on your back on a firm bed or the floor. 2.Bend your knees so they point up to the ceiling. Your feet should be flat on the floor. Your armsshould be flat at your sides, next to your body. 3.Tighten your butt muscles and lift your butt off the floor until your waist is almost as high as your knees. If you do not feel the muscles working in your butt and the back of your thighs, slide your feet 1 2 inches (2.5 5 cm) farther away from your butt. 4.Stay in this position for 3 5 seconds. 5.Slowly lower your butt to the floor, and let your butt muscles relax. If this exercise is too easy, try doing it with your arms crossed over your chest. Belly crunches Do these steps 5 10 times in a row: 1.Lie on your back on a firm bed or the floor with your legs stretched out. 2.Bend your knees so they point up to the ceiling. Your feet should be flat on the floor. 3.Cross your arms over your chest. 4.Tip your chin a little bit toward your chest, but do not bend your neck. 5.Tighten your belly muscles and slowly raise your chest just enough to lift your shoulder blades atiny bit off the floor. Avoid raising your body higher than that because it can put too much stresson your lower back. 6.Slowly lower your chest and your head to the floor. Back lifts Do these steps 5 10 times in a row: 1.Lie on your belly (face-down) with your arms at your sides, and rest your forehead on the floor. 2.Tighten the muscles in your legs and your butt. 3.Slowly lift your chest off the floor while you keep your hips on the floor. Keep the back of yourhead in line with the curve in your back. Look at the floor while you do this. 4.Stay in this position for 3 5 seconds. 5.Slowly lower your chest and your face to the floor. Contact a doctor if: Your back pain gets a lot worse when you do an exercise. Your back pain does not get better within 2 hours after you exercise. If you have any of these problems, stop doing the exercises. Do not do them again unless your doctor says it is okay. Get help right away if: You have sudden, very bad back pain. If this happens, stop doing the exercises. Do not do them again unless your doctor says it is okay. This information is not intended to replace advice given to you by your health care provider. Make sure you discuss any questions you have with your health care provider. Document Revised: 11/25/2021 Document Reviewed: 11/25/2021 [employer] Patient Education 2023 M[employer]+. Follow Up Care 06/08/2024 19:33:23 With:Mahendra Mendez Address: [address], [address] [place] [phone] Business (1) When:06/11/2024 20:00:50 Comments:Call to schedule a follow-up appointment with Review if symptoms do not improve in the next 2 to 3 days. Take the prednisone as prescribed. Monitor your blood sugar, if you notice an increase in your sugar from the prednisone stop taking the prednisone. Use lidocaine patches as needed. Return to the ED with any worsening symptoms With:Brigitte Garcia Address: [address], [address] [address]- Business (1) When:Within 3 Day(s) [facility] 09-13-2024 NoteED Patient Education Note Orthopedics Back Exercises These exercises help to make your trunk and back strong. They also help to keep the lower back flexible. Doing these exercises can help to prevent or lessen pain in your lower back. ? If you have back pain, try to do these exercises 2?3 times each day or as told by your doctor. ? As you get better, do the exercises once each day. Repeat the exercises more often as told by your doctor. ? To stop back pain from coming back, do the exercises once each day, or as told by your doctor. Do exercises exactly as told by your doctor. Stop right away if you feel sudden pain or your pain gets worse. Exercises Single knee to chest Do these steps 3?5 times in a row for each le. Lie on your back on a firm bed or the floor with your legs stretched out. 2. Bring one knee to your chest. 3. Grab your knee or thigh with both hands and hold it in place. 4. Pull on your knee until you feel a gentle stretch in your lower back or butt. 5. Keep doing the stretch for 10?30 seconds. 6. Slowly let go of your leg and straighten it. Pelvic tilt Do these steps 5?10 times in a row: 1. Lie on your back on a firm bed or the floor with your legs stretched out. 2. Bend your knees so they point up to the ceiling. Your feet should be flat on the floor. 3. Tighten your lower belly (abdomen) muscles to press your lower back against the floor. This willmake your tailbone point up to the ceiling instead of pointing down to your feet or the floor. 4. Stay in this position for 5?10 seconds while you gently tighten your muscles and breathe evenly. Cat?cow Do these steps until your lower back bends more easily: 1. Get on your hands and knees on a firm bed or the floor. Keep your hands under your shoulders, and keep your knees under your hips. You may put padding under your knees. 2. Let your head hang down toward your chest. Tighten (contract) the muscles in your belly. Point your tailbone toward the floor so your lower back becomes rounded like the back of a cat. 3. Stay in this position for 5 seconds. 4. Slowly lift your head. Let the muscles of your belly relax. Point your tailbone up toward the ceiling so your back forms a sagging arch like the back of a cow. 5. Stay in this position for 5 seconds. Press-ups Do these steps 5?10 times in a row: 1. Lie on your belly (face-down) on a firm bed or the floor. 2. Place your hands near your head, about shoulder-width apart. 3. While you keep your back relaxed and keep your hips on the floor, slowly straighten your arms toraise the top half of your body and lift your shoulders. Do not use your back muscles. You may change where you place your hands to make yourself more comfortable. 4. Stay in this position for 5 seconds. Keep your back relaxed. 5. Slowly return to lying flat on the floor. Bridges Do these steps 10 times in a row: 1. Lie on your back on a firm bed or the floor. 2. Bend your knees so they point up to the ceiling. Your feet should be flat on the floor. Your arms should be flat at your sides, next to your body. 3. Tighten your butt muscles and lift your butt off the floor until your waist is almost as high asyour knees. If you do not feel the muscles working in your butt and the back of your thighs, slide your feet 1?2 inches (2.5?5 cm) farther away from your butt. 4. Stay in this position for 3?5 seconds. 5. Slowly lower your butt to the floor, and let your butt muscles relax. If this exercise is too easy, try doing it with your arms crossed over your chest. Belly crunches Do these steps 5?10 times in a row: 1. Lie on your back on a firm bed or the floor with your legs stretched out. 2. Bend your knees so they point up to the ceiling. Your feet should be flat on the floor. 3. Cross your arms over your chest. 4. Tip your chin a little bit toward your chest, but do not bend your neck. 5. Tighten your belly muscles and slowly raise your chest just enough to lift your shoulder blades a tiny bit off the floor. Avoid raising your body higher than that because it can put too much stress on your lower back. 6. Slowly lower your chest and your head to the floor. Back lifts Do these steps 5?10 times in a row: 1. Lie on your belly (face-down) with your arms at your sides, and rest your forehead on the floor. 2. Tighten the muscles in your legs and your butt. 3. Slowly lift your chest off the floor while you keep your hips on the floor. Keep the back of your head in line with the curve in your back. Look at the floor while you do this. 4. Stay in this position for 3?5 seconds. 5. Slowly lower your chest and your face to the floor. Contact a doctor if: ? Your back pain gets a lot worse when you do an exercise. ? Your back pain does not get better within 2 hours after you exercise. If you have any of these probl (more content not included)...[facility]09-13-2024 Evaluation + Plan noteExtracted from: Title:ED Note Author:Wendy BRIONES, Delia Alvarez te:06/08/24 Acute low back pain with lef t-sided sciatica (M54.42: Lumbago with sciatica, left side) Orders: ketorolac, 30 mg = 1 mL, Injection, IntraMuscular, Once, Stop date 06/08/24 19:59:00 EDT, STAT, Start date 06/08/24 19:59:00 EDT, 06/08/24 19:59:00 EDT lidocaine topical, 1 patch(es), Topical, Daily, 7 patch(es), Refill(s) 0, apply 12 hours on and 12 hours off daily, [facility] #[id number], 167.6, cm, 06/08/24 19:40:00 EDT, Height/Length Dosing, 98, kg, 06/08/24 19:40:00 EDT, Weight Dosing predniSONE, 10 mg = 1 tab(s), Oral, As Directed, Take 3 tabs by mouth daily x3 days, then 2 tabs daily x3 days, then 1 tab daily x3 days., # 18 tab(s), Refills(s) 0, Pharmacy: [email or web address] #[id number], 167.6, cm, 06/08/24 19:40:00 EDT, Height/Length Dosing, 98... triamcinolone, 40 mg = 1 mL, Susp-Inj, IntraMuscular, Once, Stop date 06/08/24 19:59:00 EDT, STAT, Start date 06/08/24 19:59:00 EDT, 06/08/24 19:59:00 EDT Future Scheduled Tests Laboratory* U Protein/Creat Ratio 12/08/23 * HgbA1c 12/08/23 * Albumin Level Urine 12/08/23 * TIBC Calculated 12/08/23 * Urinalysis 12/08/23 * Vitamin D 25 Hydroxy 12/08/23 * Ferritin 12/08/23 * Iron Level 12/08/23 * Lipid Panel 12/08/23 * Reticulocyte Count 12/08/23 * Thyroid Stimulating Hormone 12/08/23 * Vitamin B12 Level 12/08/23 Radiology* MA Mamm Screen w/CAD if perf and 3D Tye 12/08/23 [facility] 09-08-2024 Hospital Discharge instructions Patient Education 06/03/2024 19:21:40 Nausea, Adult Nausea, Adult Nausea is the feeling of having an upset stomach or that you are about to vomit. Nausea on its own is not usually a serious concern, but it may be an early sign of a more serious medical problem. As nausea gets worse, it can lead to vomiting. If vomiting develops, or if you are not able to drink enough fluids, you are at risk of becoming dehydrated. Dehydration can make you tired and thirsty, cause you to have a dry mouth, and decrease how often you urinate. Older adults and people with other diseases or a weak disease-fighting system (immune system) are at higher risk for dehydration. The main goals of treating your nausea are: To relieve your nausea. To limit repeated nausea episodes. To prevent vomiting and dehydration. Follow these instructions at home: Watch your symptoms for any changes. Tell your health care provider about them. Eating and drinking Take an oral rehydration solution (ORS). This is a drink that is sold at pharmacies and retail stores. Drink clear fluids slowly and in small amounts as you are able. Clear fluids include water, ice chips, low-calorie sports drinks, and fruit juice that has water added (diluted fruit juice). Eat bland, retq-aj-bfieki foods in small amounts as you are able. These foods include bananas, applesauce, rice, lean meats, toast, and crackers. Avoid drinking fluids that contain a lot of sugar or caffeine, such as energy drinks, sports drinks, and soda. Avoid alcohol. Avoid spicy or fatty foods. General instructions Take frru-rxr-ypskkrs and prescription medicines only as told by your health care provider. Rest at home while you recover. Drink enough fluid to keep your urine pale yellow. Breathe slowly and deeply when you feel nauseous. Avoid smelling things that have strong odors. Wash your hands often using soap and water for at least 20 seconds. If soap and water are not available, use hand power tool repairer. Make sure that everyone in your household washes their hands well and often. Keep all follow-up visits. This is important. Contact a health care provider if: Your nausea gets worse. Your nausea does not go away after two days. You vomit multiple times. You cannot drink fluids without vomiting. You have any of the following: ?New symptoms. ?A fever. ?A headache. ?Muscle cramps. ?A rash. ?Pain while urinating. You feel light-headed or dizzy. Get help right away if: You have pain in your chest, neck, arm, or jaw. You feel extremely weak or you faint. You have vomit that is bright red or looks like coffee grounds. You have bloody or black stools (feces) or stools that look like tar. You have a severe headache, a stiff neck, or both. You have severe pain, cramping, or bloating in your abdomen. You have difficulty breathing or are breathing very quickly. Your heart is beating very quickly. Your skin feels cold and clammy. You feel confused. You have signs of dehydration, such as: ?Dark urine, very little urine, or no urine. ?Cracked lips. ?Dry mouth. ?Sunken eyes. ?Sleepiness. ?Weakness. These symptoms may be an emergency. Get help right away. Call 911. Do not wait to see if the symptoms will go away. Do not drive yourself to the hospital. Summary Nausea is the feeling that you have an upset stomach or that you are about to vomit. Nausea on its own is not usually a serious concern, but it may be an early sign of a more serious medical problem. If vomiting develops, or if you are not able to drink enough fluids, you are at risk of becoming dehydrated. Follow recommendations for eating and drinking and take jgzk-mgt-isxdejq and prescription medicinesonly as told by your health care provider. Contact a health care provider right away if your symptoms worsen or you have new symptoms. Keep all follow-up visits. This is important. This information is not intended to replace advice given to you by your health care provider. Make sure you discuss any questions you have with your health care provider. Document Revised: 03/19/2022 Document Reviewed: 03/19/2022 [employer] Patient Education 2023 [employer]+. 06/03/2024 19:21:40 General Headache Without Cause General Headache Without Cause A headache is pain or discomfort felt around the head or neck area. There are many causes and typesof headaches. A few common types include: Tension headaches. Migraine headaches. Cluster headaches. Chronic daily headaches. Sometimes, the specific cause of a headache may not be found. Follow these instructions at home: Watch your condition for any changes. Let your health care provider know about them. Take these steps to help with your condition: Managing pain Take cser-zlx-bgxgcje and prescription medicines only as told by your health care provider. Treatment may include medicines for pain that are taken by mouth or applied to the skin. Lie down in a dark, quiet room when you have a headache. Keep lights dim if bright lights bother you or make your headaches worse. If directed, put ice on your head and neck area: ?Put ice in a plastic bag. ?Place a towel between your skin and the bag. ?Leave the ice on for 20 minutes, 2 3 times per day. ?Remove the ice if your skin turns bright red. This is very important. If you cannot feel pain, heat, or cold, you have a greater risk of damage to the area. If directed, apply heat to the affected area. Use the heat source that your health care provider recommends, such as a moist heat pack or a heating pad. ?Place a towel between your skin and the heat source. ?Leave the heat on for 20 30 minutes. ?Remove the heat if your skin turns bright red. This is especially important if you are unable to feel pain, heat, or cold. You have a greater risk of getting burned. Eating and drinking Eat meals on a regular schedule. If you drink alcohol: ?Limit how much you have to: ?0 1 drink a day for women who are not . ? 0 2 drinks a day for men. ?Know how much alcohol is in a drink. In the [place] one drink equals one 12 oz bottle of beer (355 mL), one 5 oz glass of wine (148 mL), or one 1 oz glass of hard liquor (44 mL). Stop drinking caffeine, or decrease the amount of caffeine you drink. Drink enough fluid to keep your urine pale yellow. General instructions Keep a headache journal to help find out what may trigger your headaches. For example, write down: ?What you eat and drink. ?How much sleep you get. ?Any change to your diet or medicines. Try massage or other relaxation techniques. Limit stress. Sit up straight, and do not tense your muscles. Do not use any products that contain nicotine or tobacco. These products include cigarettes, chewing tobacco, and vaping devices, such as e-cigarettes. If you need help quitting, ask your health careprovider. Exercise regularly as told by your health care provider. Sleep on a regular schedule. Get 7 9 hours of sleep each night, or the amount recommended by your health care provider. Keep all follow-up visits. This is important. Contact a health care provider if: Medicine does not help your symptoms. You have a headache that is different from your usual headache. You have nausea or you vomit. You have a fever. Get help right away if: Your headache: ?Becomes severe quickly. ?Gets worse after moderate to intense physical activity. You have any of these symptoms: ?Repeated vomiting. ?Pain or stiffness in your neck. ?Changes to your vision. ?Pain in an eye or ear. ?Problems with speech. ?Muscular weakness or loss of muscle control. ?Loss of balance or coordination. You feel faint or pass out. You have confusion. You have a seizure. These symptoms may represent a serious problem that is an emergency. Do not wait to see if the symptoms will go away. Get medical help right away. Call your local emergency services (911 in the [place] Do not drive yourself to the hospital. Summary A headache is pain or discomfort felt around the head or neck area. There are many causes and types of headaches. In some cases, the cause may not be found. Keep a headache journal to help find out what may trigger your headaches. Watch your condition for any changes. Let your health care provider know about them. Contact a health care provider if you have a headache that is different from the usual headache, orif your symptoms are not helped by medicine. Get help right away if your headache becomes severe, you vomit, you have a loss of vision, you loseyour balance, or you have a seizure. This information is not intended to replace advice given to you by your health care provider. Make sure you discuss any questions you have with your health care provider. Document Revised: 02/10/2022 Document Reviewed: 02/10/2022 [employer] Patient Education 2023 [employer]+. Follow Up Care 06/03/2024 12:05:40 With:Brigitte Garcia Address: [address] [place] [address], [facility] [place] [phone] Business (1) When:06/06/2024 19:18:01 Comments:Return to the emergency room if your symptoms get worse or any new symptoms. [facility] [phone] NoteED Patient Education Note Gastroenterology Nausea, Adult Nausea is the feeling of having an upset stomach or that you are about to vomit. Nausea on its own is not usually a serious concern, but it may be an early sign of a more serious medical problem. As nausea gets worse, it can lead to vomiting. If vomiting develops, or if you are not able to drink enough fluids, you are at risk of becoming dehydrated. Dehydration can make you tired and thirsty, cause you to have a dry mouth, and decrease how often you urinate. Older adults and people with other diseases or a weak disease-fighting system (immune system) are at higher risk for dehydration. The main goals of treating your nausea are: ? To relieve your nausea. ? To limit repeated nausea episodes. ? To prevent vomiting and dehydration. Follow these instructions at home: Watch your symptoms for any changes. Tell your health care provider about them. Eating and drinking ? Take an oral rehydration solution (ORS). This is a drink that is sold at pharmacies and retail stores. ? Drink clear fluids slowly and in small amounts as you are able. Clear fluids include water, ice chips, low-calorie sports drinks, and fruit juice that has water added (diluted fruit juice). ? Eat bland, yfem-pw-ttzdlr foods in small amounts as you are able. These foods include bananas, applesauce, rice, lean meats, toast, and crackers. ? Avoid drinking fluids that contain a lot of sugar or caffeine, such as energy drinks, sports drinks, and soda. ? Avoid alcohol. ? Avoid spicy or fatty foods. General instructions ? Take zdlj-bxu-hiiwkin and prescription medicines only as told by your health care provider. ? Rest at home while you recover. ? Drink enough fluid to keep your urine pale yellow. ? Breathe slowly and deeply when you feel nauseous. ? Avoid smelling things that have strong odors. ? Wash your hands often using soap and water for at least 20 seconds. If soap and water are not available, use hand power tool repairer. ? Make sure that everyone in your household washes their hands well and often. ? Keep all follow-up visits. This is important. Contact a health care provider if: ? Your nausea gets worse. ? Your nausea does not go away after two days. ? You vomit multiple times. ? You cannot drink fluids without vomiting. ? You have any of the following: ? New symptoms. ? A fever. ? A headache. ? Muscle cramps. ? A rash. ? Pain while urinating. ? You feel light-headed or dizzy. Get help right away if: ? You have pain in your chest, neck, arm, or jaw. ? You feel extremely weak or you faint. ? You have vomit that is bright red or looks like coffee grounds. ? You have bloody or black stools (feces) or stools that look like tar. ? You have a severe headache, a stiff neck, or both. ? You have severe pain, cramping, or bloating in your abdomen. ? You have difficulty breathing or are breathing very quickly. ? Your heart is beating very quickly. ? Your skin feels cold and clammy. ? You feel confused. ? You have signs of dehydration, such as: ? Dark urine, very little urine, or no urine. ? Cracked lips. ? Dry mouth. ? Sunken eyes. ? Sleepiness. ? Weakness. These symptoms may be an emergency. Get help right away. Call 911. ? Do not wait to see if the symptoms will go away. ? Do not drive yourself to the hospital. Summary ? Nausea is the feeling that you have an upset stomach or that you are about to vomit. Nausea on its own is not usually a serious concern, but it may be an early sign of a more serious medical problem. ? If vomiting develops, or if you are not able to drink enough fluids, you are at risk of becoming dehydrated. ? Follow recommendations for eating and drinking and take ltra-gim-ouohpib and prescription medicines only as told by your health care provider. ? Contact a health care provider right away if your symptoms worsen or you have new symptoms. ? Keep all follow-up visits. This is important. This information is not intended to replace advice given to you by your health care provider. Make sure you discuss any questions you have with your health care provider. Document Revised: 03/19/2022 Document Reviewed: 03/19/2022 [employer] Patient Education ? 2023 [employer]+. Neurology General Headache Without Cause A headache is pain or discomfort felt around the head or neck area. There are many causes and typesof headaches. A few common types include: ? Tension headaches. ? Migraine headaches. ? Cluster headaches. ? Chronic daily headaches. Sometimes, the specific cause of a headache may not be found. Follow these instructions at home: Watch your condition for any changes. Let your health care provider know about them. Take these steps to help with your condition: Managing pain ? Take over-the (more content not included)...[facility] 06-03-2024 Evaluation + Plan noteExtracted from: Title:ED Note Author:Susan BRIONES, Kaitlynn Leigh Date:06/03/24 1. Cephalgia (R51.9: Headach e, unspecified) 2. Nausea (R11.0: Nausea) Orders: cyclobenzaprine, 10 mg = 1 tab(s), Tab, Oral, Once, Stop date 06/03/24 16:28:00 EDT, STAT, Start date 06/03/24 16:28:00 EDT, 06/03/24 16:28:00 EDT ondansetron, 4 mg = 2 mL, Injection, IV Push, Once, Stop date 06/03/24 12:39:00 EDT, STAT, Start date 06/03/24 12:39:00 EDT, 06/03/24 12:39:00 EDT promethazine 25 mg + Sodium Chloride 0.9% intravenous solution 50 mL, Injection, IV Piggyback, Once, Stop date 06/03/24 13:04:00 EDT, STAT, Start date 06/03/24 13:04:00 EDT, 153 mL/hr, Infuse over 20 minute(s) Sodium Chloride 0.9% intravenous solution 1,000 mL, 1,000 mL, IV, 1,000 mL/hr, STAT, Start date 06/03/24 13:04:00 EDT, 1 hour(s), Total volume (mL): 1,000, 98.3 kg, 2.15, m2 B-Type Natriuretic Peptide Basic Metabolic Panel CBC w/ Auto Diff CT Abdomen/Pelvis w/ Contrast ED Cardiac Monitoring eGFR Enteric Panel by PCR Extra SST Tube Hepatic Function Panel Lactic Acid Lipase Level Magnesium Level NPO Diet PT & PTT Rapid COVID Antigen ([facility]) Saline Lock Insert Troponin 0 Hr. UA with Cult Rflx Future Scheduled Tests Laboratory* U Protein/Creat Ratio 12/08/23 * HgbA1c 12/08/23 * Albumin Level Urine 12/08/23 * TIBC Calculated 12/08/23 * Urinalysis 12/08/23 * Vitamin D 25 Hydroxy 12/08/23 * Ferritin 12/08/23 * Iron Level 12/08/23 * Lipid Panel 12/08/23 * Reticulocyte Count 12/08/23 * Thyroid Stimulating Hormone 12/08/23 * Vitamin B12 Level 12/08/23 Radiology* MA Mamm Screen w/CAD if perf and 3D Tye 12/08/23 [facility] 08-10-2024 Hospital Discharge instructions Patient Education 05/05/2024 16:56:36 Upper Respiratory Infection, Adult Upper Respiratory Infection, Adult An upper respiratory infection (URI) is a common viral infection of the nose, throat, and upper airpassages that lead to the lungs. The most common type of URI is the common cold. URIs usually get better on their own, without medical treatment. What are the causes? A URI is caused by a virus. You may catch a virus by: Breathing in droplets from an infected person's cough or sneeze. Touching something that has been exposed to the virus (is contaminated) and then touching your mouth, nose, or eyes. What increases the risk? You are more likely to get a URI if: You are very young or very old. You have close contact with others, such as at work, school, or a health care facility. You smoke. You have long-term (chronic) heart or lung disease. You have a weakened disease-fighting system (immune system). You have nasal allergies or asthma. You are experiencing a lot of stress. You have poor nutrition. What are the signs or symptoms? A URI usually involves some of the following symptoms: Runny or stuffy (congested) nose. Cough. Sneezing. Sore throat. Headache. Fatigue. Fever. Loss of appetite. Pain in your forehead, behind your eyes, and over your cheekbones (sinus pain). Muscle aches. Redness or irritation of the eyes. Pressure in the ears or face. How is this diagnosed? This condition may be diagnosed based on your medical history and symptoms, and a physical exam. Your health care provider may use a swab to take a mucus sample from your nose (nasal swab). This sample can be tested to determine what virus is causing the illness. How is this treated? URIs usually get better on their own within 7 10 days. Medicines cannot cure URIs, but your health care provider may recommend certain medicines to help relieve symptoms, such as: Cjkz-oga-ibaldrk cold medicines. Cough suppressants. Coughing is a type of defense against infection that helps to clear the respiratory system, so take these medicines only as recommended by your health care provider. Fever-reducing medicines. Follow these instructions at home: Activity Rest as needed. If you have a fever, stay home from work or school until your fever is gone or until your health care provider says your URI cannot spread to other people (is no longer contagious). Your health care provider may have you wear a face mask to prevent your infection from spreading. Relieving symptoms Gargle with a mixture of salt and water 3 4 times a day or as needed. To make salt water, completely dissolve 1 tsp (3 6 g) of salt in 1 cup (237 mL) of warm water. Use a cool-mist humidifier to add moisture to the air. This can help you breathe more easily. Eating and drinking Drink enough fluid to keep your urine pale yellow. Eat soups and other clear broths. General instructions Take qrko-qlt-fxzckgu and prescription medicines only as told by your health care provider. These include cold medicines, fever reducers, and cough suppressants. Do not use any products that contain nicotine or tobacco. These products include cigarettes, chewing tobacco, and vaping devices, such as e-cigarettes. If you need help quitting, ask your health careprovider. Stay away from secondhand smoke. Stay up to date on all immunizations, including the yearly (annual) flu vaccine. Keep all follow-up visits. This is important. How to prevent the spread of infection to others URIs can be contagious. To prevent the infection from spreading: Wash your hands with soap and water for at least 20 seconds. If soap and water are not available, use hand power tool repairer. Avoid touching your mouth, face, eyes, or nose. Cough or sneeze into a tissue or your sleeve or elbow instead of into your hand or into the air. Contact a health care provider if: You are getting worse instead of better. You have a fever or chills. Your mucus is brown or red. You have yellow or brown discharge coming from your nose. You have pain in your face, especially when you bend forward. You have swollen neck glands. You have pain while swallowing. You have white areas in the back of your throat. Get help right away if: You have shortness of breath that gets worse. You have severe or persistent: ?Headache. ?Ear pain. ?Sinus pain. ?Chest pain. You have chronic lung disease along with any of the following: ?Making high-pitched whistling sounds when you breathe, most often when you breathe out (wheezing). ?Prolonged cough (more than 14 days). ?Coughing up blood. ?A change in your usual mucus. You have a stiff neck. You have changes in your: ?Vision. ?Hearing. ?Thinking. ?Mood. These symptoms may be an emergency. Get help right away. Call 911. Do not wait to see if the symptoms will go away. Do not drive yourself to the hospital. Summary An upper respiratory infection (URI) is a common infection of the nose, throat, and upper air passages that lead to the lungs. A URI is caused by a virus. URIs usually get better on their own within 7 10 days. Medicines cannot cure URIs, but your health care provider may recommend certain medicines to help relieve symptoms. This information is not intended to replace advice given to you by your health care provider. Make sure you discuss any questions you have with your health care provider. Document Revised: 04/14/2022 Document Reviewed: 04/14/2022 [employer] Patient Education 2022 [employer] Follow Up Care 05/05/2024 15:30:48 With:Brigitte Garcia Address: [facility] [address], [facility] [place] [phone] Business (1) When:05/08/2024 16:56:11 Comments:COVID test negativeCall the office of your primary care doctor to arrange for follow-up within the above-stated timeframe. Follow-up with your primary care doctor about this ED visit. You should review your labs, imaging, and diagnoses from this ED visit with your primary care physician. There are o ccasionally non-emergent findings that require additional follow-up after your ED visit. If you were prescribed medications you should discuss possible side- effects and drug interactions with your pharmacist. Call 911 or go to the nearest Emergency Department if you develop any new or worsening symptoms.Seek immediate medical attention if you develop: worsening shortness of breath, difficulty breathing, chest pain, nausea, vomiting, weakness, numbness, tingling, excessive sweating, loss of motion in your arms or legs, or any new or worsening symptoms. [facility] 08-10-2024 NoteED Patient Education Note Infectious Disease Upper Respiratory Infection, Adult An upper respiratory infection (URI) is a common viral infection of the nose, throat, and upper airpassages that lead to the lungs. The most common type of URI is the common cold. URIs usually get better on their own, without medical treatment. What are the causes? A URI is caused by a virus. You may catch a virus by: ? Breathing in droplets from an infected person's cough or sneeze. ? Touching something that has been exposed to the virus (is contaminated) and then touching your mouth, nose, or eyes. What increases the risk? You are more likely to get a URI if: ? You are very young or very old. ? You have close contact with others, such as at work, school, or a health care facility. ? You smoke. ? You have long-term (chronic) heart or lung disease. ? You have a weakened disease-fighting system (immune system). ? You have nasal allergies or asthma. ? You are experiencing a lot of stress. ? You have poor nutrition. What are the signs or symptoms? A URI usually involves some of the following symptoms: ? Runny or stuffy (congested) nose. ? Cough. ? Sneezing. ? Sore throat. ? Headache. ? Fatigue. ? Fever. ? Loss of appetite. ? Pain in your forehead, behind your eyes, and over your cheekbones (sinus pain). ? Muscle aches. ? Redness or irritation of the eyes. ? Pressure in the ears or face. How is this diagnosed? This condition may be diagnosed based on your medical history and symptoms, and a physical exam. Your health care provider may use a swab to take a mucus sample from your nose (nasal swab). This sample can be tested to determine what virus is causing the illness. How is this treated? URIs usually get better on their own within 7?10 days. Medicines cannot cure URIs, but your health care provider may recommend certain medicines to help relieve symptoms, such as: ? Ipea-zvi-droclsv cold medicines. ? Cough suppressants. Coughing is a type of defense against infection that helps to clear the respiratory system, so take these medicines only as recommended by your health care provider. ? Fever-reducing medicines. Follow these instructions at home: Activity ? Rest as needed. ? If you have a fever, stay home from work or school until your fever is gone or until your health care provider says your URI cannot spread to other people (is no longer contagious). Your health care provider may have you wear a face mask to prevent your infection from spreading. Relieving symptoms ? Gargle with a mixture of salt and water 3?4 times a day or as needed. To make salt water, completely dissolve ??1 tsp (3?6 g) of salt in 1 cup (237 mL) of warm water. ? Use a cool-mist humidifier to add moisture to the air. This can help you breathe more easily. Eating and drinking ? Drink enough fluid to keep your urine pale yellow. ? Eat soups and other clear broths. General instructions ? Take lxlv-gjs-utccmfs and prescription medicines only as told by your health care provider. Theseinclude cold medicines, fever reducers, and cough suppressants. ? Do not use any products that contain nicotine or tobacco. These products include cigarettes, chewing tobacco, and vaping devices, such as e-cigarettes. If you need help quitting, ask your health care provider. ? Stay away from secondhand smoke. ? Stay up to date on all immunizations, including the yearly (annual) flu vaccine. ? Keep all follow-up visits. This is important. How to prevent the spread of infection to others URIs can be contagious. To prevent the infection from spreading: ? Wash your hands with soap and water for at least 20 seconds. If soap and water are not available,use hand power tool repairer. ? Avoid touching your mouth, face, eyes, or nose. ? Cough or sneeze into a tissue or your sleeve or elbow instead of into your hand or into the air. Contact a health care provider if: ? You are getting worse instead of better. ? You have a fever or chills. ? Your mucus is brown or red. ? You have yellow or brown discharge coming from your nose. ? You have pain in your face, especially when you bend forward. ? You have swollen neck glands. ? You have pain while swallowing. ? You have white areas in the back of your throat. Get help right away if: ? You have shortness of breath that gets worse. ? You have severe or persistent: ? Headache. ? Ear pain. ? Sinus pain. ? Chest pain. ? You have chronic lung disease along with any of the following: ? Making high-pitched whistling sounds when you breathe, most often when you breathe out (wheezing). ? Prolonged cough (more than 14 days). ? Coughing up blood. ? A change in your usual mucus. ? You have a stiff neck. ? You have changes in your: ? Vision. ? Hearing. ? Thinking. ? Mood. These symptoms m (more content not included)...[facility] 05-05-2024 Evaluation + Plan noteExtracted from: Title:ED Note Author:Bhupendra Dale PA-C te:05/05/24 1. Exposure to COVID-19 viru s (Z20.828: Contact with and (suspected) exposure to other viral communicable diseases) Orders: Rapid COVID Antigen [place] Addendum by Stefano Marino DO on May 05, 2024 16:56:42 EDT COVID test is negative. URI. Symptomatic therapy at home. Return precautions given. Patient was discharged home. Stefano Marino DO, FAAEM Future Scheduled Tests Laboratory* U Protein/Creat Ratio 12/08/23 * HgbA1c 12/08/23 * Albumin Level Urine 12/08/23 * TIBC Calculated 12/08/23 * Urinalysis 12/08/23 * Vitamin D 25 Hydroxy 12/08/23 * Ferritin 12/08/23 * Iron Level 12/08/23 * Lipid Panel 12/08/23 * Reticulocyte Count 12/08/23 * Thyroid Stimulating Hormone 12/08/23 * Vitamin B12 Level 12/08/23 Radiology* MA Mamm Screen w/CAD if perf and 3D Tye 12/08/23 [facility] 07-15-2024 Hospital Discharge instructions Patient Education 04/09/2024 17:32:43 Constipation, Adult Constipation, Adult Constipation is when a person has fewer than three bowel movements in a week, has difficulty havinga bowel movement, or has stools (feces) that are dry, hard, or larger than normal. Constipation maybe caused by an underlying condition. It may become worse with age if a person takes certain medicines and does not take in enough fluids. Follow these instructions at home: Eating and drinking Eat foods that have a lot of fiber, such as beans, whole grains, and fresh fruits and vegetables. Limit foods that are low in fiber and high in fat and processed sugars, such as fried or sweet foods. These include guinean fries, hamburgers, cookies, candies, and soda. Drink enough fluid to keep your urine pale yellow. General instructions Exercise regularly or as told by your health care provider. Try to do 150 minutes of moderate exercise each week. Use the bathroom when you have the urge to go. Do not hold it in. Take itli-wdd-avkldvb and prescription medicines only as told by your health care provider. This includes any fiber supplements. During bowel movements: ?Practice deep breathing while relaxing the lower abdomen. ?Practice pelvic floor relaxation. Watch your condition for any changes. Let your health care provider know about them. Keep all follow-up visits as told by your health care provider. This is important. Contact a health care provider if: You have pain that gets worse. You have a fever. You do not have a bowel movement after 4 days. You vomit. You are not hungry or you lose weight. You are bleeding from the opening between the buttocks (anus). You have thin, pencil-like stools. Get help right away if: You have a fever and your symptoms suddenly get worse. You leak stool or have blood in your stool. Your abdomen is bloated. You have severe pain in your abdomen. You feel dizzy or you faint. Summary Constipation is when a person has fewer than three bowel movements in a week, has difficulty havinga bowel movement, or has stools (feces) that are dry, hard, or larger than normal. Eat foods that have a lot of fiber, such as beans, whole grains, and fresh fruits and vegetables. Drink enough fluid to keep your urine pale yellow. Take wdwz-tzi-rrzrwwy and prescription medicines only as told by your health care provider. This includes any fiber supplements. This information is not intended to replace advice given to you by your health care provider. Make sure you discuss any questions you have with your health care provider. Document Revised: 07/30/2020 Document Reviewed: 07/30/2020 [employer] Patient Education 2022 [employer] 04/09/2024 17:32:43 Abdominal Bloating Abdominal Bloating When you have abdominal bloating, your abdomen may feel full, tight, or painful. It may also look bigger than normal or swollen (distended). Common causes of abdominal bloating include: Swallowing air. Constipation. Problems digesting food. Eating too much. Irritable bowel syndrome. This is a condition that affects the large intestine. Lactose intolerance. This is an inability to digest lactose, a natural sugar in dairy products. Celiac disease. This is a condition that affects the ability to digest gluten, a protein found in some grains. Gastroparesis. This is a condition that slows down the movement of food in the stomach and small intestine. It is more common in people with diabetes mellitus. Gastroesophageal reflux disease (GERD). This is a condition that makes stomach acid flow back into the esophagus. Urinary retention. This means that the body is holding onto urine, and the bladder cannot be emptied all the way. Follow these instructions at home: Eating and drinking Avoid eating too much. Try not to swallow air while talking or eating. Avoid eating while lying down. Avoid these foods and drinks: ?Foods that cause gas, such as broccoli, cabbage, cauliflower, and baked beans. ?Carbonated drinks. ?Hard candy. ?Chewing gum. Medicines Take jtjc-dbz-yzbqtlx and prescription medicines only as told by your health care provider. Take probiotic medicines. These medicines contain live bacteria or yeasts that can help digestion. Take coated peppermint oil capsules. General instructions Try to exercise regularly. Exercise may help to relieve bloating that is caused by gas and relieve constipation. Keep all follow-up visits. This is important. Contact a health care provider if: You have nausea and vomiting. You have diarrhea. You have abdominal pain. You have unusual weight loss or weight gain. You have severe pain, and medicines do not help. Get help right away if: You have chest pain. You have trouble breathing. You have shortness of breath. You have trouble urinating. You have darker urine than normal. You have blood in your stools or have dark, tarry stools. These symptoms may represent a serious problem that is an emergency. Do not wait to see if the symptoms will go away. Get medical help right away. Call your local emergency services (911 in the [place] Do not drive yourself to the hospital. Summary Abdominal bloating means that the abdomen is swollen. Common causes of abdominal bloating are swallowing air, constipation, and problems digesting food. Avoid eating too much and avoid swallowing air. Avoid foods that cause gas, carbonated drinks, hard candy, and chewing gum. This information is not intended to replace advice given to you by your health care provider. Make sure you discuss any questions you have with your health care provider. Document Revised: 04/14/2021 Document Reviewed: 04/14/2021 [employer] Patient Education 2022 [employer] Follow Up Care 04/09/2024 15:07:12 With:Brigitte Garcia Address: [address], [address] [address] Business (1) When:04/12/2024 17:23:19 [facility]07-15-2024 NoteED Patient Education Note Gastroenterology Constipation, Adult Constipation is when a person has fewer than three bowel movements in a week, has difficulty havinga bowel movement, or has stools (feces) that are dry, hard, or larger than normal. Constipation maybe caused by an underlying condition. It may become worse with age if a person takes certain medicines and does not take in enough fluids. Follow these instructions at home: Eating and drinking ? Eat foods that have a lot of fiber, such as beans, whole grains, and fresh fruits and vegetables. ? Limit foods that are low in fiber and high in fat and processed sugars, such as fried or sweet foods. These include guinean fries, hamburgers, cookies, candies, and soda. ? Drink enough fluid to keep your urine pale yellow. General instructions ? Exercise regularly or as told by your health care provider. Try to do 150 minutes of moderate exercise each week. ? Use the bathroom when you have the urge to go. Do not hold it in. ? Take pauh-xpz-yunoqcm and prescription medicines only as told by your health care provider. This includes any fiber supplements. ? During bowel movements: ? Practice deep breathing while relaxing the lower abdomen. ? Practice pelvic floor relaxation. ? Watch your condition for any changes. Let your health care provider know about them. ? Keep all follow-up visits as told by your health care provider. This is important. Contact a health care provider if: ? You have pain that gets worse. ? You have a fever. ? You do not have a bowel movement after 4 days. ? You vomit. ? You are not hungry or you lose weight. ? You are bleeding from the opening between the buttocks (anus). ? You have thin, pencil-like stools. Get help right away if: ? You have a fever and your symptoms suddenly get worse. ? You leak stool or have blood in your stool. ? Your abdomen is bloated. ? You have severe pain in your abdomen. ? You feel dizzy or you faint. Summary ? Constipation is when a person has fewer than three bowel movements in a week, has difficulty having a bowel movement, or has stools (feces) that are dry, hard, or larger than normal. ? Eat foods that have a lot of fiber, such as beans, whole grains, and fresh fruits and vegetables. ? Drink enough fluid to keep your urine pale yellow. ? Take qgdv-lgc-dmdjlyk and prescription medicines only as told by your health care provider. This includes any fiber supplements. This information is not intended to replace advice given to you by your health care provider. Make sure you discuss any questions you have with your health care provider. Document Revised: 07/30/2020 Document Reviewed: 07/30/2020 [employer] Patient Education ? 2022 [employer] Abdominal Bloating When you have abdominal bloating, your abdomen may feel full, tight, or painful. It may also look bigger than normal or swollen (distended). Common causes of abdominal bloating include: ? Swallowing air. ? Constipation. ? Problems digesting food. ? Eating too much. ? Irritable bowel syndrome. This is a condition that affects the large intestine. ? Lactose intolerance. This is an inability to digest lactose, a natural sugar in dairy products. ? Celiac disease. This is a condition that affects the ability to digest gluten, a protein found insome grains. ? Gastroparesis. This is a condition that slows down the movement of food in the stomach and small intestine. It is more common in people with diabetes mellitus. ? Gastroesophageal reflux disease (GERD). This is a condition that makes stomach acid flow back into the esophagus. ? Urinary retention. This means that the body is holding onto urine, and the bladder cannot be emptied all the way. Follow these instructions at home: Eating and drinking ? Avoid eating too much. ? Try not to swallow air while talking or eating. ? Avoid eating while lying down. ? Avoid these foods and drinks: ? Foods that cause gas, such as broccoli, cabbage, cauliflower, and baked beans. ? Carbonated drinks. ? Hard candy. ? Chewing gum. Medicines ? Take pyim-ham-ggeodrn and prescription medicines only as told by your health care provider. ? Take probiotic medicines. These medicines contain live bacteria or yeasts that can help digestion. ? Take coated peppermint oil capsules. General instructions ? Try to exercise regularly. Exercise may help to relieve bloating that is caused by gas and relieve constipation. ? Keep all follow-up visits. This is important. Contact a health care provider if: ? You have nausea and vomiting. ? You have diarrhea. ? You have abdominal pain. ? You have unusual weight loss or weight gain. ? You have severe pain, and medicines do not help. Get help right away if: ? You have chest pain. ? You have trouble breathing. ? You have shortness of breath. ? You have trouble urinating. ? Y (more content not included)...[facility] [facility] Hospital Discharge instructions Patient Education 03/20/2024 01:29:02 Migraine Headache Migraine Headache A migraine headache is an intense, throbbing pain on one side or both sides of the head. Migraine headaches may also cause other symptoms, such as nausea, vomiting, and sensitivity to light and noise. A migraine headache can last from 4 hours to 3 days. Talk with your doctor about what things may bring on (trigger) your migraine headaches. What are the causes? The exact cause of this condition is not known. However, a migraine may be caused when nerves in the brain become irritated and release chemicals that cause inflammation of blood vessels. This inflammation causes pain. This condition may be triggered or caused by: Drinking alcohol. Smoking. Taking medicines, such as: ?Medicine used to treat chest pain (nitroglycerin). ? control pills. ?Estrogen. ?Certain blood pressure medicines. Eating or drinking products that contain nitrates, glutamate, aspartame, or tyramine. Aged cheeses,chocolate, or caffeine may also be triggers. Doing physical activity. Other things that may trigger a migraine headache include: Menstruation. . Hunger. Stress. Lack of sleep or too much sleep. Weather changes. Fatigue. What increases the risk? The following factors may make you more likely to experience migraine headaches: Being a certain age. This condition is more common in people who are 25 55 years old. Being female. Having a family history of migraine headaches. Being . Having a mental health condition, such as depression or anxiety. Being obese. What are the signs or symptoms? The main symptom of this condition is pulsating or throbbing pain. This pain may: Happen in any area of the head, such as on one side or both sides. Interfere with daily activities. Get worse with physical activity. Get worse with exposure to bright lights or loud noises. Other symptoms may include: Nausea. Vomiting. Dizziness. General sensitivity to bright lights, loud noises, or smells. Before you get a migraine headache, you may get warning signs (an aura). An aura may include: Seeing flashing lights or having blind spots. Seeing bright spots, halos, or zigzag lines. Having tunnel vision or blurred vision. Having numbness or a tingling feeling. Having trouble talking. Having muscle weakness. Some people have symptoms after a migraine headache (postdromal phase), such as: Feeling tired. Difficulty concentrating. How is this diagnosed? A migraine headache can be diagnosed based on: Your symptoms. A physical exam. Tests, such as: ?CT scan or an MRI of the head. These imaging tests can help rule out other causes of headaches. ?Taking fluid from the spine (lumbar puncture) and analyzing it (cerebrospinal fluid analysis, or CSF analysis). How is this treated? This condition may be treated with medicines that: Relieve pain. Relieve nausea. Prevent migraine headaches. Treatment for this condition may also include: Acupuncture. Lifestyle changes like avoiding foods that trigger migraine headaches. Biofeedback. Cognitive behavioral therapy. Follow these instructions at home: Medicines Take xpua-kuh-uwbpaek and prescription medicines only as told by your health care provider. Ask your health care provider if the medicine prescribed to you: ?Requires you to avoid driving or using heavy machinery. ?Can cause constipation. You may need to take these actions to prevent or treat constipation: ?Drink enough fluid to keep your urine pale yellow. ?Take nozo-zot-czjymoc or prescription medicines. ?Eat foods that are high in fiber, such as beans, whole grains, and fresh fruits and vegetables. ?Limit foods that are high in fat and processed sugars, such as fried or sweet foods. Lifestyle Do not drink alcohol. Do not use any products that contain nicotine or tobacco, such as cigarettes, e- cigarettes, and chewing tobacco. If you need help quitting, ask your health care provider. Get at least 8 hours of sleep every night. Find ways to manage stress, such as meditation, deep breathing, or yoga. General instructions Keep a journal to find out what may trigger your migraine headaches. For example, write down: ?What you eat and drink. ?How much sleep you get. ?Any change to your diet or medicines. If you have a migraine headache: ?Avoid things that make your symptoms worse, such as bright lights. ?It may help to lie down in a dark, quiet room. ?Do not drive or use heavy machinery. ?Ask your health care provider what activities are safe for you while you are experiencing symptoms. Keep all follow-up visits as told by your health care provider. This is important. Contact a health care provider if: You develop symptoms that are different or more severe than your usual migraine headache symptoms. You have more than 15 headache days in one month. Get help right away if: Your migraine headache becomes severe. Your migraine headache lasts longer than 72 hours. You have a fever. You have a stiff neck. You have vision loss. Your muscles feel weak or like you cannot control them. You start to lose your balance often. You have trouble walking. You faint. You have a seizure. Summary A migraine headache is an intense, throbbing pain on one side or both sides of the head. Migraines may also cause other symptoms, such as nausea, vomiting, and sensitivity to light and noise. This condition may be treated with medicines and lifestyle changes. You may also need to avoid certain things that trigger a migraine headache. Keep a journal to find out what may trigger your migraine headaches. Contact your health care provider if you have more than 15 headache days in a month or you develop symptoms that are different or more severe than your usual migraine headache symptoms. This information is not intended to replace advice given to you by your health care provider. Make sure you discuss any questions you have with your health care provider. Document Revised: 01/04/2020 Document Reviewed: 10/25/2019 [employer] Patient Education 2022 [employer] Follow Up Care 03/19/2024 23:36:22 With:Brigitte Garcia Address: [address] [place] [address] [place] [phone] Business (1) When:Within 3 Day(s) [facility]06-24-2024 Evaluation + Plan noteExtracted from: Title:ED Note Author:Ralph Platt DO Date :03/19/24 Migraine headache (G43.909: Migraine, unspecified, not intractable, without status migrainosus) Orders: diphenhydrAMINE, 25 mg = 0.5 mL, Injection, IV Push, Once, Stop date 03/19/24 23:46:00 EDT, STAT, Start date 03/19/24 23:46:00 EDT, 03/19/24 23:46:00 EDT ketorolac, 15 mg = 1 mL, Injection, IV Push, Once, Stop date 03/19/24 23:45:00 EDT, STAT, Start date 03/19/24 23:45:00 EDT, 03/19/24 23:45:00 EDT metoclopramide, 10 mg = 2 mL, Injection, IV Push, Once, Stop date 03/19/24 23:46:00 EDT, STAT, Start date 03/19/24 23:46:00 EDT, 03/19/24 23:46:00 EDT Sodium Chloride 0.9% intravenous solution, 1,000 mL, Soln-IV, IV, Once, Stop date 03/19/24 23:46:00 EDT, STAT, Start date 03/19/24 23:46:00 EDT, Infuse over 61, minute(s) Future Scheduled Tests Laboratory* U Protein/Creat Ratio 12/08/23 * HgbA1c 12/08/23 * Albumin Level Urine 12/08/23 * TIBC Calculated 12/08/23 * Urinalysis 12/08/23 * Vitamin D 25 Hydroxy 12/08/23 * Ferritin 12/08/23 * Iron Level 12/08/23 * Lipid Panel 12/08/23 * Reticulocyte Count 12/08/23 * Thyroid Stimulating Hormone 12/08/23 * Vitamin B12 Level 12/08/23 Radiology* MA Mamm Screen w/CAD if perf and 3D Tye 12/08/23 [facility]06-17-2024 Evaluation + Plan noteExtracted from: Title:ED Note Author:Micah Greer DO Date :03/12/24 Acute UTI (urinary tract inf ection) (N39.0: Urinary tract infection, site not specified) Chest pain (R07.9: Chest pain, unspecified) Orders: ceftriaxone + Sodium Chloride 0.9% intravenous solution 50 mL, 1,000 mg = 1 EA, IV Piggyback, Once, Stop date 03/12/24 0:47:00 EDT, STAT, Start date 03/12/24 0:47:00 EDT, 100 mL/hr, Infuse over 30 minute(s), 03/12/24 0:47:00 EDT ketorolac, 30 mg = 1 mL, Injection, IV Push, Once, Stop date 03/12/24 0:21:00 EDT, STAT, Start date 03/12/24 0:21:00 EDT, 03/12/24 0:21:00 EDT lidocaine topical, 1 patch(es), Patch, TransDermal, Once, Stop date 03/12/24 0:26:00 EDT, STAT, Start date 03/12/24 0:26:00 EDT methocarbamol, 500 mg = 1 tab(s), Oral, TID, X 3 day(s), # 9 tab(s), Refills(s) 0, Pharmacy: [facility] #[id number], 167.6, cm, 03/11/24 23:41:00 EDT, Height/Length Dosing, 95.6, kg, 03/11/24 23:37:00 EDT, Weight Dosing naproxen, 500 mg = 1 tab(s), Oral, BID, PRN for pain, # 20 tab(s), Refills(s) 0, Pharmacy: [facility] #[id number], 167.6, cm, 03/11/24 23:41:00 EDT, Height/Length Dosing, 95.6, kg, 03/11/24 23:37:00 EDT, Weight Dosing sulfamethoxazole-trimethoprim, 1 tab(s), Oral, BID, 20 tab(s), Refill(s) 0, [facility] #[id number], 167.6, cm, 03/11/24 23:41:00 EDT, Height/Length Dosing, 95.6, kg, 03/11/24 23:37:00 EDT, Weight Dosing Basic Metabolic Panel CBC w/ Auto Diff ECG 12 Lead Adult ED Cardiac Monitoring eGFR Oxygen Saturation Oxygen Therapy PT & PTT Saline Lock Insert Troponin 0 Hr. Troponin 1 Hr. UA with Cult Rflx Urine Culture XR Chest Single View Diagnostic Tests Pending * Urine Culture 03/11/24 Future Scheduled Tests Laboratory* U Protein/Creat Ratio 12/08/23 * HgbA1c 12/08/23 * Albumin Level Urine 12/08/23 * TIBC Calculated 12/08/23 * Urinalysis 12/08/23 * Vitamin D 25 Hydroxy 12/08/23 * Ferritin 12/08/23 * Iron Level 12/08/23 * Lipid Panel 12/08/23 * Reticulocyte Count 12/08/23 * Thyroid Stimulating Hormone 12/08/23 * Vitamin B12 Level 12/08/23 Radiology* MA Mamm Screen w/CAD if perf and 3D Tye 12/08/23 [facility]06-17-2024 Hospital Discharge instructions Patient Education 03/12/2024 02:29:09 Urinary Tract Infection, Adult, Zfiv-mr-Mabt Urinary Tract Infection, Adult A urinary tract infection (UTI) is an infection of any part of the urinary tract. The urinary tractincludes: The kidneys. The ureters. The bladder. The urethra. These organs make, store, and get rid of pee (urine) in the body. What are the causes? This infection is caused by germs (bacteria) in your genital area. These germs grow and cause swelling (inflammation) of your urinary tract. What increases the risk? The following factors may make you more likely to develop this condition: Using a small, thin tube (catheter) to drain pee. Not being able to control when you pee or poop (incontinence). Being female. If you are female, these things can increase the risk: ?Using these methods to prevent : ?A medicine that kills sperm (spermicide). ?A device that blocks sperm (diaphragm). ?Having low levels of a female hormone (estrogen). ?Being . You are more likely to develop this condition if: You have genes that add to your risk. You are sexually active. You take antibiotic medicines. You have trouble peeing because of: ?A prostate that is bigger than normal, if you are male. ?A blockage in the part of your body that drains pee from the bladder. ?A kidney stone. ?A nerve condition that affects your bladder. ?Not getting enough to drink. ?Not peeing often enough. You have other conditions, such as: ?Diabetes. ?A weak disease-fighting system (immune system). ?Sickle cell disease. ?Gout. ?Injury of the spine. What are the signs or symptoms? Symptoms of this condition include: Needing to pee right away. Peeing small amounts often. Pain or burning when peeing. Blood in the pee. Pee that smells bad or not like normal. Trouble peeing. Pee that is cloudy. Fluid coming from the vagina, if you are female. Pain in the belly or lower back. Other symptoms include: Vomiting. Not feeling hungry. Feeling mixed up (confused). This may be the first symptom in older adults. Being tired and grouchy (irritable). A fever. Watery poop (diarrhea). How is this treated? Taking antibiotic medicine. Taking other medicines. Drinking enough water. In some cases, you may need to see a specialist. Follow these instructions at home: Medicines Take grsq-oth-tiduudv and prescription medicines only as told by your doctor. If you were prescribed an antibiotic medicine, take it as told by your doctor. Do not stop taking it even if you start to feel better. General instructions Make sure you: ?Pee until your bladder is empty. ?Do not hold pee for a long time. ?Empty your bladder after sex. ?Wipe from front to back after peeing or pooping if you are a female. Use each tissue one time whenyou wipe. Drink enough fluid to keep your pee pale yellow. Keep all follow-up visits. Contact a doctor if: You do not get better after 1 2 days. Your symptoms go away and then come back. Get help right away if: You have very bad back pain. You have very bad pain in your lower belly. You have a fever. You have chills. You feeling like you will vomit or you vomit. Summary A urinary tract infection (UTI) is an infection of any part of the urinary tract. This condition is caused by germs in your genital area. There are many risk factors for a UTI. Treatment includes antibiotic medicines. Drink enough fluid to keep your pee pale yellow. This information is not intended to replace advice given to you by your health care provider. Make sure you discuss any questions you have with your health care provider. Document Revised: 04/24/2021 Document Reviewed: 04/24/2021 [employer] Patient Education 2022 [employer] 03/12/2024 02:29:09 Nonspecific Chest Pain, Adult, Xhvb-ep-Qkeu Nonspecific Chest Pain Chest pain can be caused by many different conditions. Some causes of chest pain can be life-threatening. These will require treatment right away. Serious causes of chest pain include: Heart attack. A tear in the body's main blood vessel. Redness and swelling (inflammation) around your heart. Blood clot in your lungs. Other causes of chest pain may not be so serious. These include: Heartburn. Anxiety or stress. Damage to bones or muscles in your chest. Lung infections. Chest pain can feel like: Pain or discomfort in your chest. Crushing, pressure, aching, or squeezing pain. Burning or tingling. Dull or sharp pain that is worse when you move, cough, or take a deep breath. Pain or discomfort that is also felt in your back, neck, jaw, shoulder, or arm, or pain that spreads to any of these areas. It is hard to know whether your pain is caused by something that is serious or something that is not so serious. So it is important to see your doctor right away if you have chest pain. Follow these instructions at home: Medicines Take wgyv-ziy-oamsmva and prescription medicines only as told by your doctor. If you were prescribed an antibiotic medicine, take it as told by your doctor. Do not stop taking the antibiotic even if you start to feel better. Lifestyle Rest as told by your doctor. Do not use any products that contain nicotine or tobacco, such as cigarettes, e- cigarettes, and chewing tobacco. If you need help quitting, ask your doctor. Do not drink alcohol. Make lifestyle changes as told by your doctor. These may include: ?Getting regular exercise. Ask your doctor what activities are safe for you. ?Eating a heart-healthy diet. A diet and customer sales specialist (dietitian) can help you to learn healthy eating options. ?Staying at a healthy weight. ?Treating diabetes or high blood pressure, if needed. ?Lowering your stress. Activities such as yoga and relaxation techniques can help. General instructions Pay attention to any changes in your symptoms. Tell your doctor about them or any new symptoms. Avoid any activities that cause chest pain. Keep all follow-up visits as told by your doctor. This is important. You may need more testing if your chest pain does not go away. Contact a doctor if: Your chest pain does not go away. You feel depressed. You have a fever. Get help right away if: Your chest pain is worse. You have a cough that gets worse, or you cough up blood. You have very bad (severe) pain in your belly (abdomen). You pass out (faint). You have either of these for no clear reason: ?Sudden chest discomfort. ?Sudden discomfort in your arms, back, neck, or jaw. You have shortness of breath at any time. You suddenly start to sweat, or your skin gets clammy. You feel sick to your stomach (nauseous). You throw up (vomit). You suddenly feel lightheaded or dizzy. You feel very weak or tired. Your heart starts to beat fast, or it feels like it is skipping beats. These symptoms may be an emergency. Do not wait to see if the symptoms will go away. Get medical help right away. Call your local emergency services (911 in the [place] Do not drive yourself to the hospital. Summary Chest pain can be caused by many different conditions. The cause may be serious and need treatment right away. If you have chest pain, see your doctor right away. Follow your doctor's instructions for taking medicines and making lifestyle changes. Keep all follow-up visits as told by your doctor. This includes visits for any further testing if your chest pain does not go away. Be sure to know the signs that show that your condition has become worse. Get help right away if you have these symptoms. This information is not intended to replace advice given to you by your health care provider. Make sure you discuss any questions you have with your health care provider. Document Revised: 11/26/2021 Document Reviewed: 11/26/2021 [employer] Patient Education 2022 [employer] Follow Up Care 03/11/2024 23:34:07 With:Brigitte Garcia [facility] [address] [facility] [address] [place] [phone] [facility] (1) When:03/15/2024 Comments:Use the Naprosyn, Robaxin as prescribed as needed for pain. Stop the Keflex and start taking the Bactrim and to you have completed the course. Please follow-up with your primary care doctor next 2 to3 days. Please return to the ED for any new or worsening symptoms. [facility]06-14-2024 Hospital Discharge instructions Patient Education 03/09/2024 16:29:49 Pancreatitis Eating Plan Pancreatitis Eating Plan Pancreatitis is when your pancreas gets irritated and swollen (inflamed). The pancreas is a small gland behind your stomach. It helps your body digest food and regulate your blood sugar. Pancreatitiscan affect how your body digests food, especially foods with fat. You may also have other symptoms such as pain in your abdomen (abdominal pain) or nausea. When you have pancreatitis, following a low-fat eating plan may help you manage symptoms and recover faster. Work with your health care provider or a dietitian to create an eating plan that is right for you. What are tips for following this plan? Reading food labels Use the information on food labels to help keep track of how much fat you eat: Check the serving size. Look for the amount of total fat in grams (g) in one serving. ?Low-fat foods have 3 g of fat or less per serving. ?Fat-free foods have 0.5 g of fat or less per serving. Keep track of how much fat you eat based on how many servings you eat. ?For example, if you eat two servings, the amount of fat you eat will be twice what is listed on the label. Shopping Buy low-fat or nonfat foods, such as: ?Fresh, frozen, or canned fruits and vegetables. ?Grains, including pasta, bread, and rice. ?Lean meat, poultry, fish, and other protein foods. ?Low-fat or nonfat dairy. Avoid buying bakery products and other sweets made with whole milk, butter, and eggs. Avoid buying snack foods with added fat, such as anything with butter or cheese flavoring. Cooking Remove skin from poultry, and remove extra fat from meat. Limit the amount of fat and oil you use to 6 tsp (30 mL) or less per day. Cook using low-fat methods, such as boiling, broiling, grilling, steaming, or baking. Use spray oil to cook. Add fat-free chicken broth to add flavor and moisture. Avoid adding cream to thicken soups or sauces. Use other thickeners such as corn starch or tomato paste. Meal planning Eat a low-fat diet as told by your dietitian. For most people, this means having no more than 55 65g of fat each day. Eat small, frequent meals throughout the day. For example, you may have 5 or 6 small meals instead of 3 large meals. Drink enough fluid to keep your urine pale yellow. Do not drink alcohol. Talk to your health care provider if you need help stopping. Limit how much caffeine you have, including black coffee, black and green tea, soft drinks with caffeine, and energy drinks. Plan to include a variety of foods in your diet. Include fruits, vegetables, whole grains and lean proteins, and low-fat or nonfat dairy. You need a balanced diet for good overall health. General information Let your health care provider or dietitian know if you have unplanned weight loss on this eating plan. You may be told to follow a clear liquid or soft food diet when symptoms come back, which is calleda flare. Talk with your health care provider about how to manage your diet during symptoms of a flare. Take any vitamins or supplements as told by your health care provider. You may need to take: ?Extra vitamins that dissolve in fat (are fat soluble), such as vitamins A, D, E, and K. ?Nutritional supplements. Work with a dietitian, especially if you have other conditions such as obesity, osteoporosis, or diabetes mellitus. Some people need extra treatments, such as: ?Pills or capsules to replace enzymes (oral pancreatic enzyme replacement therapy). ?Feedings through a tube in the stomach or intestine (enteral feedings). What foods should I avoid? Fruits Fried fruits. Fruits served with butter or cream. Vegetables Fried vegetables. Vegetables cooked with butter, cheese, or cream. Grains Biscuits, waffles, donuts, pastries, and croissants. Pies and cookies. Butter- flavored popcorn. Regular crackers. Meats and other proteins Fatty cuts of meat. Poultry with skin. Organ meats. Precooked or cured meat, such as sausages or meat loaves. Whole eggs. Nuts and nut butters. Dairy Whole and 2% milk. Whole milk yogurt. Whole milk ice cream. Cream and qqlb-xba-zjwj. Cheese, such as cream cheese. Sour cream. Beverages Wine, beer, and liquor. The items listed above may not be a complete list of foods and beverages you should avoid. Contact a dietitian for more information. Summary Pancreatitis can affect how your body digests food, especially foods with fat. When you have pancreatitis, it is recommended that you follow a low-fat eating plan to help you recover faster and manage symptoms. Do not drink alcohol. Limit the amount of caffeine you have, and drink enough fluid to keep your urine pale yellow. This information is not intended to replace advice given to you by your health care provider. Make sure you discuss any questions you have with your health care provider. Document Revised: 09/01/2022 Document Reviewed: 09/01/2022 [employer] Patient Education 2022 [employer] Follow Up Care 03/09/2024 13:20:28 With:Dejah Duran Address: [address], [address] [phone] Business (1) When:03/12/2024 16:34:04 Comments:Call the beam warper to schedule an appointment if symptoms do not improve for further management of care With:Rafael TRUJILLO Address: [address] [phone]- Business (1) When:03/12/2024 16:29:35 Comments:Call to schedule an appointment with the urologist for further management of care. With:Brigitte Garcia Address: [address], [address] [facility] [address] [place] [address]- Business (1) When:Within 3 Day(s) [facility]06-14-2024 Evaluation + Plan note Diagnostic Tests Pending * Urine Culture 03/09/24 Future Scheduled Tests Laboratory* U Protein/Creat Ratio 12/08/23 * HgbA1c 12/08/23 * Albumin Level Urine 12/08/23 * TIBC Calculated 12/08/23 * Urinalysis 12/08/23 * Vitamin D 25 Hydroxy 12/08/23 * Ferritin 12/08/23 * Iron Level 12/08/23 * Lipid Panel 12/08/23 * Reticulocyte Count 12/08/23 * Thyroid Stimulating Hormone 12/08/23 * Vitamin B12 Level 12/08/23 Radiology* MA Mamm Screen w/CAD if perf and 3D Tye 12/08/23 [facility]06-09-2024 Evaluation + Plan noteExtracted from: Title:ED Note Author:Todd Fleming DO Date:03/04 UTI (urinary tract infection ) (N39.0: Urinary tract infection, site not specified) Orders: cephalexin, 500 mg = 1 cap(s), Oral, q12hr, X 7 day(s), # 14 cap(s), Refills(s) 0, Pharmacy: [facility] #[id number], 170, cm, 03/04/24 12:01:00 EDT, Height/Length Dosing, 92, kg, 03/04/24 12:01:00 EDT, Weight Dosing naproxen, 500 mg = 1 tab(s), Oral, BID, Take one tab by mouth two times a day, # 14 tab(s), Refills(s) 0, Pharmacy: [facility] #[id number], 170, cm, 03/04/24 12:01:00 EDT, Height/Length Dosing, 92, kg, 03/04/24 12::00 EDT, Weight Dosing ondansetron, 4 mg = 1 tab(s), Oral, q6hr, PRN Nausea, Take one tab by mouth every six hours as needed for nausea, # 10 tab(s), Refills(s) 0, Pharmacy: [facility] #[id number], 170, cm, 03/04/24 12:01:00 EDT, Height/Length Dosing, 92, kg, 03/04/24 12::00 EDT, Weight Dosing UA with Cult Rflx Urine Culture XR Abdomen 1 View Diagnostic Tests Pending * Urine Culture 03/04/24 Future Scheduled Tests Laboratory* U Protein/Creat Ratio 12/08/23 * HgbA1c 12/08/23 * Albumin Level Urine 12/08/23 * TIBC Calculated 12/08/23 * Urinalysis 12/08/23 * Vitamin D 25 Hydroxy 12/08/23 * Ferritin 12/08/23 * Iron Level 12/08/23 * Lipid Panel 12/08/23 * Reticulocyte Count 12/08/23 * Thyroid Stimulating Hormone 12/08/23 * Vitamin B12 Level 12/08/23 Radiology* MA Mamm Screen w/CAD if perf and 3D Tye 12/08/23 [facility]06-09-2024 Hospital Discharge instructions Follow Up Care 03/04/2024 11:54:38 With:Brigitte Garcia Address: [address] [place] [address], [facility] A [address] [address]- Business (1) When:Within 3 Day(s) [facility]04-10-2024 Hospital Discharge instructions Patient Education 01/04/2024 10:59:29 BMI for Adults BMI for Adults What is BMI? Body mass index (BMI) is a number that is calculated from a person's weight and height. BMI can help estimate how much of a person's weight is composed of fat. BMI does not measure body fat directly.Rather, it is an alternative to procedures that directly measure body fat, which can be difficult and expensive. BMI can help identify people who may be at higher risk for certain medical problems. What are BMI measurements used for? BMI is used as a screening tool to identify possible weight problems. It helps determine whether a person is obese, overweight, a healthy weight, or underweight. BMI is useful for: Identifying a weight problem that may be related to a medical condition or may increase the risk for medical problems. Promoting changes, such as changes in diet and exercise, to help reach a healthy weight. BMI screening can be repeated to see if these changes are working. How is BMI calculated? BMI involves measuring your weight in relation to your height. Both height and weight are measured,and the BMI is calculated from those numbers. This can be done either in [place] ([place] or metric measurements. Note that charts and online BMI calculators are available to help you find your BMI quickly and easily without having to do these calculations yourself. To calculate your BMI in [place] measurements: 1.Measure your weight in pounds (lb). 2.Multiply the number of pounds by 703. For example, for a person who weighs 180 lb, multiply that number by 703, which equals 126,540. 3.Measure your height in inches. Then multiply that number by itself to get a measurement called inches squared. For example, for a person who is 70 inches tall, the inches squared measurement is 70 inches x 70inches, which equals 4,900 inches squared. 4.Divide the total from step 2 (number of lb x 703) by the total from step 3 (inches squared): 126,540 4,900 = 25.8. This is your BMI. To calculate your BMI in metric measurements: 1.Measure your weight in kilograms (kg). 2.Measure your height in meters (m). Then multiply that number by itself to get a measurement called meters squared. For example, for a person who is 1.75 m tall, the meters squared measurement is 1.75 m x 1.75 m, which is equal to 3.1 meters squared. 3.Divide the number of kilograms (your weight) by the meters squared number. In this example: 70 3.1 = 22.6. This is your BMI. What do the results mean? BMI charts are used to identify whether you are underweight, normal weight, overweight, or obese. The following guidelines will be used: Underweight: BMI less than 18.5. Normal weight: BMI between 18.5 and 24.9. Overweight: BMI between 25 and 29.9. Obese: BMI of 30 or above. Keep these notes in mind: Weight includes both fat and muscle, so someone with a muscular build, such as an athlete, may havea BMI that is higher than 24.9. In cases like these, BMI is not an accurate measure of body fat. To determine if excess body fat is the cause of a BMI of 25 or higher, further assessments may needto be done by a health care provider. BMI is usually interpreted in the same way for men and women. Where to find more information For more information about BMI, including tools to quickly calculate your BMI, go to these websites: Centers for Disease Control and Prevention: www.cdc.gov [place] [employer]: www.heart.org National Heart, Lung, and Blood [place]: www.nhlbi.nih.gov Summary Body mass index (BMI) is a number that is calculated from a person's weight and height. BMI may help estimate how much of a person's weight is composed of fat. BMI can help identify thosewho may be at higher risk for certain medical problems. BMI can be measured using [place] measurements or metric measurements. BMI charts are used to identify whether you are underweight, normal weight, overweight, or obese. This information is not intended to replace advice given to you by your health care provider. Make sure you discuss any questions you have with your health care provider. Document Revised: 06/04/2020 Document Reviewed: 04/11/2020 [employer] Patient Education 2022 [employer] 01/04/2024 10:59:27 Constipation, Adult Constipation, Adult Constipation is when a person has fewer than three bowel movements in a week, has difficulty havinga bowel movement, or has stools (feces) that are dry, hard, or larger than normal. Constipation maybe caused by an underlying condition. It may become worse with age if a person takes certain medicines and does not take in enough fluids. Follow these instructions at home: Eating and drinking Eat foods that have a lot of fiber, such as beans, whole grains, and fresh fruits and vegetables. Limit foods that are low in fiber and high in fat and processed sugars, such as fried or sweet foods. These include guinean fries, hamburgers, cookies, candies, and soda. Drink enough fluid to keep your urine pale yellow. General instructions Exercise regularly or as told by your health care provider. Try to do 150 minutes of moderate exercise each week. Use the bathroom when you have the urge to go. Do not hold it in. Take kdxt-xya-kbxrfmo and prescription medicines only as told by your health care provider. This includes any fiber supplements. During bowel movements: ?Practice deep breathing while relaxing the lower abdomen. ?Practice pelvic floor relaxation. Watch your condition for any changes. Let your health care provider know about them. Keep all follow-up visits as told by your health care provider. This is important. Contact a health care provider if: You have pain that gets worse. You have a fever. You do not have a bowel movement after 4 days. You vomit. You are not hungry or you lose weight. You are bleeding from the opening between the buttocks (anus). You have thin, pencil-like stools. Get help right away if: You have a fever and your symptoms suddenly get worse. You leak stool or have blood in your stool. Your abdomen is bloated. You have severe pain in your abdomen. You feel dizzy or you faint. Summary Constipation is when a person has fewer than three bowel movements in a week, has difficulty havinga bowel movement, or has stools (feces) that are dry, hard, or larger than normal. Eat foods that have a lot of fiber, such as beans, whole grains, and fresh fruits and vegetables. Drink enough fluid to keep your urine pale yellow. Take cbqv-eow-rbjwfzf and prescription medicines only as told by your health care provider. This includes any fiber supplements. This information is not intended to replace advice given to you by your health care provider. Make sure you discuss any questions you have with your health care provider. Document Revised: 07/30/2020 Document Reviewed: 07/30/2020 [employer] Patient Education 2022 [facility]+. 01/04/2024 10:59:25 Urinary Tract Infection, Adult Urinary Tract Infection, Adult A urinary tract infection (UTI) is an infection of any part of the urinary tract. The urinary tractincludes the kidneys, ureters, bladder, and urethra. These organs make, store, and get rid of urinein the body. An upper UTI affects the ureters and kidneys. A lower UTI affects the bladder and urethra. What are the causes? Most urinary tract infections are caused by bacteria in your genital area around your urethra, where urine leaves your body. These bacteria grow and cause inflammation of your urinary tract. What increases the risk? You are more likely to develop this condition if: You have a urinary catheter that stays in place. You are not able to control when you urinate or have a bowel movement (incontinence). You are female and you: ?Use a spermicide or diaphragm for control. ?Have low estrogen levels. ?Are . You have certain genes that increase your risk. You are sexually active. You take antibiotic medicines. You have a condition that causes your flow of urine to slow down, such as: ?An enlarged prostate, if you are male. ?Blockage in your urethra. ?A kidney stone. ?A nerve condition that affects your bladder control (neurogenic bladder). ?Not getting enough to drink, or not urinating often. You have certain medical conditions, such as: ?Diabetes. ?A weak disease-fighting system (immunesystem). ?Sickle cell disease. ?Gout. ?Spinal cord injury. What are the signs or symptoms? Symptoms of this condition include: Needing to urinate right away (urgency). Frequent urination. This may include small amounts of urine each time you urinate. Pain or burning with urination. Blood in the urine. Urine that smells bad or unusual. Trouble urinating. Cloudy urine. Vaginal discharge, if you are female. Pain in the abdomen or the lower back. You may also have: Vomiting or a decreased appetite. Confusion. Irritability or tiredness. A fever or chills. Diarrhea. The first symptom in older adults may be confusion. In some cases, they may not have any symptoms until the infection has worsened. How is this diagnosed? This condition is diagnosed based on your medical history and a physical exam. You may also have other tests, including: Urine tests. Blood tests. Tests for STIs (sexually transmitted infections). If you have had more than one UTI, a cystoscopy or imaging studies may be done to determine the cause of the infections. How is this treated? Treatment for this condition includes: Antibiotic medicine. Qcdu-qup-bslhxzt medicines to treat discomfort. Drinking enough water to stay hydrated. If you have frequent infections or have other conditions such as a kidney stone, you may need to see a health care provider who specializes in the urinary tract (urologist). In rare cases, urinary tract infections can cause sepsis. Sepsis is a life- threatening condition that occurs when the body responds to an infection. Sepsis is treated in the hospital with IV antibiotics, fluids, and other medicines. Follow these instructions at home: Medicines Take vefk-puo-zygrhcx and prescription medicines only as told by your health care provider. If you were prescribed an antibiotic medicine, take it as told by your health care provider. Do notstop using the antibiotic even if you start to feel better. General instructions Make sure you: ?Empty your bladder often and completely. Do not hold urine for long periods of time. ?Empty your bladder after sex. ?Wipe from front to back after urinating or having a bowel movement if you are female. Use each tissue only one time when you wipe. Drink enough fluid to keep your urine pale yellow. Keep all follow-up visits. This is important. Contact a health care provider if: Your symptoms do not get better after 1 2 days. Your symptoms go away and then return. Get help right away if: You have severe pain in your back or your lower abdomen. You have a fever or chills. You have nausea or vomiting. Summary A urinary tract infection (UTI) is an infection of any part of the urinary tract, which includes the kidneys, ureters, bladder, and urethra. Most urinary tract infections are caused by bacteria in your genital area. Treatment for this condition often includes antibiotic medicines. If you were prescribed an antibiotic medicine, take it as told by your health care provider. Do notstop using the antibiotic even if you start to feel better. Keep all follow-up visits. This is important. This information is not intended to replace advice given to you by your health care provider. Make sure you discuss any questions you have with your health care provider. Document Revised: 04/24/2021 Document Reviewed: 04/24/2021 [employer] Patient Education 2022 [facility]+. 01/04/2024 10:59:22 Dietary Guidelines to Help Prevent Kidney Stones Dietary Guidelines to Help Prevent Kidney Stones Kidney stones are deposits of minerals and salts that form inside your kidneys. Your risk of developing kidney stones may be greater depending on your diet, your lifestyle, the medicines you take, and whether you have certain medical conditions. Most people can lower their risks of developing kidney stones by following these dietary guidelines. Your dietitian may give you more specific instructions depending on your overall health and the type of kidney stones you tend to develop. What are tips for following this plan? Reading food labels Choose foods with no salt added or low-salt labels. Limit your salt (sodium) intake to less than 1,500 mg a day. Choose foods with calcium for each meal and snack. Try to eat about 300 mg of calcium at each meal.Foods that contain 200 500 mg of calcium a serving include: ?8 oz (237 mL) of milk, cbpkpjy-fsnuoxhnijgo-llpdj milk, and calcium- fortifiedfruit juice. Calcium-fortified means that calcium has been added to these drinks. ?8 oz (237 mL) of kefir, yogurt, and soy yogurt. ?4 oz (114 g) of tofu. ?1 oz (28 g) of cheese. ?1 cup (150 g) of dried figs. ?1 cup (91 g) of cooked broccoli. ?One 3 oz (85 g) can of sardines or mackerel. Most people need 1,000 1,500 mg of calcium a day. Talk to your dietitian about how much calcium is recommended for you. Shopping Buy plenty of fresh fruits and vegetables. Most people do not need to avoid fruits and vegetables, even if these foods contain nutrients that may contribute to kidney stones. When shopping for convenience foods, choose: ?Whole pieces of fruit. ?Pre-made salads with dressing on the side. ?Low-fat fruit and yogurt smoothies. Avoid buying frozen meals or prepared deli foods. These can be high in sodium. Look for foods with live cultures, such as yogurt and kefir. Choose high-fiber grains, such as whole-wheat breads, oat bran, and wheat cereals. Cooking Do not add salt to food when cooking. Place a salt shaker on the table and allow each person to addtheir own salt to taste. Use vegetable protein, such as beans, textured vegetable protein (TVP), or tofu, instead of meat inpasta, casseroles, and soups. Meal planning Eat less salt, if told by your dietitian. To do this: ?Avoid eating processed or pre-made food. ?Avoid eating fast food. Eat less animal protein, including cheese, meat, poultry, or fish, if told by your dietitian. To dothis: ?Limit the number of times you have meat, poultry, fish, or cheese each week. Eat a diet free of meat at least 2 days a week. ?Eat only one serving each day of meat, poultry, fish, or seafood. ?When you prepare animal proteins, cut pieces into small portion sizes. For most meat and fish, oneserving is about the size of the palm of your hand. Eat at least five servings of fresh fruits and vegetables each day. To do this: ?Keep fruits and vegetables on hand for snacks. ?Eat one piece of fruit or a handful of berries with breakfast. ?Have a salad and fruit at lunch. ?Have two kinds of vegetables at dinner. You may be told to limit foods that are high in a substance called oxalate. These include: ?Spinach (cooked), rhubarb, beets, sweet potatoes, and Malagasy chard. ?Peanuts. ?Potato chips, guinean fries, and baked potatoes with skin on. ?Nuts and nut products. ?Chocolate. If you regularly take a diuretic medicine, make sure to eat at least 1 or 2 servings of fruits or vegetables that are high in potassium each day. These include: ?Avocado. ?Banana. ?[place], prune, carrot, or tomato juice. ?Baked potato. ?Cabbage. ?Beans and split peas. Lifestyle Drink enough fluid to keep your urine pale yellow. This is the most important thing you can do. Spread your fluid intake throughout the day. If you drink alcohol: ?Limit how much you have to: ?0 1 drink a day for women who are not . ?0 2 drinks a day for men. ?Know how much alcohol is in your drink. In the [place] one drink equals one 12 oz bottle of beer (355 mL), one 5 oz glass of wine (148 mL), or one 1 oz glass of hard liquor (44 mL). Lose weight if told by your health care provider. Work with your dietitian to find an eating plan and weight loss strategies that work best for you. General information Talk to your health care provider and dietitian about taking daily supplements. Depending on your health and the cause of your kidney stones, you may be told: ?Do not take high-dose supplements of vitamin C (1,000 mg a day or more). ?To take a calcium supplement. ?To take a daily probiotic supplement. ?To take other supplements such as magnesium, fish oil, or vitamin B6. Take lolp-jqv-vtferxk and prescription medicines only as told by your health care provider. These include supplements. What foods should I limit? Limit your intake of the following foods, or eat them as told by your dietitian. Vegetables Spinach. Rhubarb. Beets. Canned vegetables. Pickles. Olives. Baked potatoes with skin. Grains Wheat bran. Baked goods. Salted crackers. Cereals high in sugar. Meats and other proteins Nuts. Nut butters. Large portions of meat, poultry, or fish. Salted, precooked, or cured meats, such as sausages, meat loaves, and hot dogs. Dairy Cheeses. Beverages Regular soft drinks. Regular vegetable juice. Seasonings and condiments Seasoning blends with salt. Salad dressings. Soy sauce. Ketchup. Barbecue sauce. Other foods Canned soups. Canned pasta sauce. Casseroles. Pizza. Lasagna. Frozen meals. Potato chips. Pashto fries. The items listed above may not be a complete list of foods and beverages you should limit. Contact a dietitian for more information. What foods should I avoid? Talk to your dietitian about specific foods you should avoid based on the type of kidney stones youhave and your overall health. Fruits Grapefruit. The item listed above may not be a complete list of foods and beverages you should avoid. Contact adietitian for more information. Summary Kidney stones are deposits of minerals and salts that form inside your kidneys. You can lower your risk of kidney stones by making changes to your diet. The most important thing you can do is drink enough fluid. Drink enough fluid to keep your urine pale yellow. Talk to your dietitian about how much calcium you should have each day, and eat less salt and animal protein as told by your dietitian. This information is not intended to replace advice given to you by your health care provider. Make sure you discuss any questions you have with your health care provider. Document Revised: 12/23/2022 Document Reviewed: 12/23/2022 [employer] Patient Education 2022 [facility]+. 01/04/2024 10:59:20 Kidney Stones Kidney Stones Kidney stones are solid, rock-like deposits that form inside of the kidneys. The kidneys are a pairof organs that make urine. A kidney stone may form in a kidney and move into other parts of the urinary tract, including the tubes that connect the kidneys to the bladder (ureters), the bladder, and the tube that carries urine out of the body (urethra). As the stone moves through these areas, it can cause intense pain and block the flow of urine. Kidney stones are created when high levels of certain minerals are found in the urine. The stones are usually passed out of the body through urination, but in some cases, medical treatment may be needed to remove them. What are the causes? Kidney stones may be caused by: A condition in which certain glands produce too much parathyroid hormone (primary hyperparathyroidism), which causes too much calcium buildup in the blood. A buildup of uric acid crystals in the bladder (hyperuricosuria). Uric acid is a chemical that the body produces when you eat certain foods. It usually leaves the body in the urine. Narrowing (stricture) of one or both of the ureters. A kidney blockage that is present at (congenital obstruction). Past surgery on the kidney or the ureters. What increases the risk? The following factors may make you more likely to develop this condition: Having had a kidney stone in the past. Having a family history of kidney stones. Not drinking enough water. Eating a diet that is high in protein, salt (sodium), or sugar. Being overweight or obese. What are the signs or symptoms? Symptoms of a kidney stone may include: Pain in the side of the abdomen, right below the ribs (flank pain). Pain usually spreads (radiates)to the groin. Needing to urinate often or urgently. Painful urination. Blood in the urine (hematuria). Nausea. Vomiting. Fever and chills. How is this diagnosed? This condition may be diagnosed based on: Your symptoms and medical history. A physical exam. Blood tests. Urine tests. These may be done before and after the stone passes out of your body through urination. Imaging tests, such as a CT scan, abdominal X-ray, or ultrasound. A procedure to examine the inside of the bladder (cystoscopy). How is this treated? Treatment for kidney stones depends on the size, location, and makeup of the stones. Kidney stones will often pass out of the body through urination. You may need to: Increase your fluid intake to help pass the stone. In some cases, you may be given fluids through an IV and may need to be monitored in the hospital. Take medicine for pain. Make changes in your diet to help prevent kidney stones from coming back. Sometimes, procedures are needed to remove a kidney stone. This may involve: A procedure to break up kidney stones using: ?A focused beam of light (laser therapy). ?Shock waves (extracorporeal shock wave lithotripsy). Surgery to remove kidney stones. This may be needed if you have severe pain or have stones that block your urinary tract. Follow these instructions at home: Medicines Take xpfn-npg-udhqxex and prescription medicines only as told by your health care provider. Ask your health care provider if the medicine prescribed to you requires you to avoid driving or using heavy machinery. Eating and drinking Drink enough fluid to keep your urine pale yellow. You may be instructed to drink at least 8 10 glasses of water each day. This will help you pass the kidney stone. If directed, change your diet. This may include: ?Limiting how much sodium you eat. ?Eating more fruits and vegetables. ?Limiting how much animal protein you eat. Animal proteins include red meat, poultry, fish, and eggs. ?Eating a normal amount of calcium (1,000 1,300 mg per day). Follow instructions from your health care provider about eating or drinking restrictions. General instructions Collect urine samples as told by your health care provider. You may need to collect a urine sample: ?24 hours after you pass the stone. ?8 12 weeks after you pass the kidney stone, and every 6 12 months after that. Strain your urine every time you urinate, for as long as directed. Use the strainer that your health care provider recommends. Do not throw out the kidney stone after passing it. Keep the stone so it can be tested by your health care provider. Testing the makeup of your kidney stone may help prevent you from getting kidney stones in the future. Keep all follow-up visits. You may need follow-up X-rays or ultrasounds to make sure that your stone has passed. How is this prevented? To prevent another kidney stone: Drink enough fluid to keep your urine pale yellow. This is the best way to prevent kidney stones. Eat a healthy diet. Follow recommendations from your health care provider about foods to avoid. Recommendations vary depending on the type of kidney stone that you have. You may be instructed to eat a low-protein diet. Maintain a healthy weight. Where to find more information National Kidney Foundation (NKF): www.kidney.org [facility] (UCF): www.urologyhealth.org Contact a health care provider if: You have pain that gets worse or does not get better with medicine. Get help right away if: You have a fever or chills. You develop severe pain. You develop new abdominal pain. You faint. You are unable to urinate. Summary Kidney stones are solid, rock-like deposits that form inside of the kidneys. Kidney stones can cause nausea, vomiting, blood in the urine, abdominal pain, and the urge to urinate often. Treatment for kidney stones depends on the size, location, and makeup of the stones. Kidney stones will often pass out of the body through urination. Kidney stones can be prevented by drinking enough fluids, eating a healthy diet, and maintaining a healthy weight. This information is not intended to replace advice given to you by your health care provider. Make sure you discuss any questions you have with your health care provider. Document Revised: 12/22/2022 Document Reviewed: 12/22/2022 [employer] Patient Education 2022 [employer] 01/04/2024 10:59:14 Hematuria, Adult Hematuria, Adult Hematuria is blood in the urine. Blood may be visible in the urine, or it may be identified with a test. This condition can be caused by infections of the bladder, urethra, kidney, or prostate. Otherpossible causes include: Kidney stones. Cancer of the urinary tract. Too much calcium in the urine. Conditions that are passed from parent to child (inherited conditions). Exercise that requires a lot of energy. Infections can usually be treated with medicine, and a kidney stone usually will pass through your urine. If neither of these is the cause of your hematuria, more tests may be needed to identify the cause of your symptoms. It is very important to tell your health care provider about any blood in your urine, even if it ispainless or the blood stops without treatment. Blood in the urine, when it happens and then stops and then happens again, can be a symptom of a very serious condition, including cancer. There is no pain in the initial stages of many urinary cancers. Follow these instructions at home: Medicines Take bued-jfr-mkopitq and prescription medicines only as told by your health care provider. If you were prescribed an antibiotic medicine, take it as told by your health care provider. Do notstop taking the antibiotic even if you start to feel better. Eating and drinking Drink enough fluid to keep your urine pale yellow. It is recommended that you drink 3 4 quarts (2.83.8 L) a day. If you have been diagnosed with an infection, drinking cranberry juice in addition tolarge amounts of water is recommended. Avoid caffeine, tea, and carbonated beverages. These tend to irritate the bladder. Avoid alcohol because it may irritate the prostate (in males). General instructions If you have been diagnosed with a kidney stone, follow your health care provider's instructions about straining your urine to catch the stone. Empty your bladder often. Avoid holding urine for long periods of time. If you are female: ?After a bowel movement, wipe from front to back and use each piece of toilet paper only once. ?Empty your bladder before and after sex. Pay attention to any changes in your symptoms. Tell your health care provider about any changes or any new symptoms. It is up to you to get the results of any tests. Ask your health care provider, or the department that is doing the test, when your results will be ready. Keep all follow-up visits. This is important. Contact a health care provider if: You develop back pain. You have a fever or chills. You have nausea or vomiting. Your symptoms do not improve after 3 days. Your symptoms get worse. Get help right away if: You develop severe vomiting and are unable to take medicine without vomiting. You develop severe pain in your back or abdomen even though you are taking medicine. You pass a large amount of blood in your urine. You pass blood clots in your urine. You feel very weak or like you might faint. You faint. Summary Hematuria is blood in the urine. It has many possible causes. It is very important that you tell your health care provider about any blood in your urine, even ifit is painless or the blood stops without treatment. Take puih-ytw-uwqzqyv and prescription medicines only as told by your health care provider. Drink enough fluid to keep your urine pale yellow. This information is not intended to replace advice given to you by your health care provider. Make sure you discuss any questions you have with your health care provider. Document Revised: 05/13/2021 Document Reviewed: 05/13/2021 [employer] Patient Education 2022 [employer] Follow Up Care 12/28/2023 10:17:27 With:Jose BUNN, SOFIA Diez, [facility] Address: [address] [place], [place] [id number]- When:Within 6 Week(s) Comments:kidney stones, UTI and f/u labs, [facility] 04-01-2024 Hospital Discharge instructions Patient Education 12/25/2023 22:38:28 Kidney Stones Kidney Stones Kidney stones are solid, rock-like deposits that form inside of the kidneys. The kidneys are a pairof organs that make urine. A kidney stone may form in a kidney and move into other parts of the urinary tract, including the tubes that connect the kidneys to the bladder (ureters), the bladder, and the tube that carries urine out of the body (urethra). As the stone moves through these areas, it can cause intense pain and block the flow of urine. Kidney stones are created when high levels of certain minerals are found in the urine. The stones are usually passed out of the body through urination, but in some cases, medical treatment may be needed to remove them. What are the causes? Kidney stones may be caused by: A condition in which certain glands produce too much parathyroid hormone (primary hyperparathyroidism), which causes too much calcium buildup in the blood. A buildup of uric acid crystals in the bladder (hyperuricosuria). Uric acid is a chemical that the body produces when you eat certain foods. It usually leaves the body in the urine. Narrowing (stricture) of one or both of the ureters. A kidney blockage that is present at (congenital obstruction). Past surgery on the kidney or the ureters. What increases the risk? The following factors may make you more likely to develop this condition: Having had a kidney stone in the past. Having a family history of kidney stones. Not drinking enough water. Eating a diet that is high in protein, salt (sodium), or sugar. Being overweight or obese. What are the signs or symptoms? Symptoms of a kidney stone may include: Pain in the side of the abdomen, right below the ribs (flank pain). Pain usually spreads (radiates)to the groin. Needing to urinate often or urgently. Painful urination. Blood in the urine (hematuria). Nausea. Vomiting. Fever and chills. How is this diagnosed? This condition may be diagnosed based on: Your symptoms and medical history. A physical exam. Blood tests. Urine tests. These may be done before and after the stone passes out of your body through urination. Imaging tests, such as a CT scan, abdominal X-ray, or ultrasound. A procedure to examine the inside of the bladder (cystoscopy). How is this treated? Treatment for kidney stones depends on the size, location, and makeup of the stones. Kidney stones will often pass out of the body through urination. You may need to: Increase your fluid intake to help pass the stone. In some cases, you may be given fluids through an IV and may need to be monitored in the hospital. Take medicine for pain. Make changes in your diet to help prevent kidney stones from coming back. Sometimes, procedures are needed to remove a kidney stone. This may involve: A procedure to break up kidney stones using: ?A focused beam of light (laser therapy). ?Shock waves (extracorporeal shock wave lithotripsy). Surgery to remove kidney stones. This may be needed if you have severe pain or have stones that block your urinary tract. Follow these instructions at home: Medicines Take qcej-wwf-fuovxwf and prescription medicines only as told by your health care provider. Ask your health care provider if the medicine prescribed to you requires you to avoid driving or using heavy machinery. Eating and drinking Drink enough fluid to keep your urine pale yellow. You may be instructed to drink at least 8 10 glasses of water each day. This will help you pass the kidney stone. If directed, change your diet. This may include: ?Limiting how much sodium you eat. ?Eating more fruits and vegetables. ?Limiting how much animal protein you eat. Animal proteins include red meat, poultry, fish, and eggs. ?Eating a normal amount of calcium (1,000 1,300 mg per day). Follow instructions from your health care provider about eating or drinking restrictions. General instructions Collect urine samples as told by your health care provider. You may need to collect a urine sample: ?24 hours after you pass the stone. ?8 12 weeks after you pass the kidney stone, and every 6 12 months after that. Strain your urine every time you urinate, for as long as directed. Use the strainer that your health care provider recommends. Do not throw out the kidney stone after passing it. Keep the stone so it can be tested by your health care provider. Testing the makeup of your kidney stone may help prevent you from getting kidney stones in the future. Keep all follow-up visits. You may need follow-up X-rays or ultrasounds to make sure that your stone has passed. How is this prevented? To prevent another kidney stone: Drink enough fluid to keep your urine pale yellow. This is the best way to prevent kidney stones. Eat a healthy diet. Follow recommendations from your health care provider about foods to avoid. Recommendations vary depending on the type of kidney stone that you have. You may be instructed to eat a low-protein diet. Maintain a healthy weight. Where to find more information National Kidney Foundation (NKF): www.kidney.org Urology Care Foundation (UCF): www.urologyhealth.org Contact a health care provider if: You have pain that gets worse or does not get better with medicine. Get help right away if: You have a fever or chills. You develop severe pain. You develop new abdominal pain. You faint. You are unable to urinate. Summary Kidney stones are solid, rock-like deposits that form inside of the kidneys. Kidney stones can cause nausea, vomiting, blood in the urine, abdominal pain, and the urge to urinate often. Treatment for kidney stones depends on the size, location, and makeup of the stones. Kidney stones will often pass out of the body through urination. Kidney stones can be prevented by drinking enough fluids, eating a healthy diet, and maintaining a healthy weight. This information is not intended to replace advice given to you by your health care provider. Make sure you discuss any questions you have with your health care provider. Document Revised: 12/22/2022 Document Reviewed: 12/22/2022 [employer] Patient Education 2022 [employer] 12/25/2023 22:38:28 Renal Colic Renal Colic Renal colic is pain that is caused by passing a kidney stone. The pain can be sharp and severe. It may be felt in the back, abdomen, side (flank), or groin. It can cause nausea. Renal colic can come and go. Follow these instructions at home: Watch your condition for any changes. The following actions may help to lessen any discomfort that you are feeling: Medicines Take xvdd-aqn-gwdekkd and prescription medicines only as told by your health care provider. Do not drive or use heavy machinery while taking prescription pain medicine. Eating and drinking Drink enough fluid to keep your urine pale yellow. You may be instructed to drink at least 8 10 glasses of water each day. Follow instructions from your health care provider. If directed, change your diet. This may include: ?Limiting how much sodium you eat. You may need to eat less than 2 grams (2,000 mg) per day. ?Eating more fruits and vegetables. ?Limiting how much animal protein, such as red meat, poultry, fish, and eggs, you eat. ?Avoiding foods such as spinach, rhubarb, sweet potatoes, and nuts. These make kidney stones more likely to form. Follow instructions from your health care provider about eating or drinking restrictions. General instructions Keep all follow-up visits as told by your health care provider. This is important. Collect urine samples as told by your health care provider. You may need to collect a urine sample: ?24 hours after you pass the stone. ?8 12 weeks after passing the kidney stone, and every 6 12 months after that. Strain your urine every time you urinate, for as long as directed. Use the strainer that your health care provider recommends. Do not throw out the kidney stone after passing it. Keep the stone so it can be tested by your health care provider. Testing the makeup of your kidney stone may help understand how to prevent you from getting kidney stones in the future. Contact a health care provider if: You have a fever or chills. Your urine smells bad or looks cloudy. You have pain or burning when you pass urine. Get help right away if: Your flank pain or groin pain suddenly worsens. You become confused or disoriented or you lose consciousness. Summary Renal colic is pain that is caused by passing a kidney stone. Take qmlo-xby-dngrody and prescription medicines only as told by your health care provider. Drink enough fluid to keep your urine pale yellow. You may be instructed to drink at least 8 10 glasses of water each day. Follow instructions from your health care provider. Strain your urine every time you urinate, for as long as directed. Use the strainer that your health care provider recommends. Do not throw out the kidney stone after passing it. Keep the stone so it can be tested by your health care provider. This information is not intended to replace advice given to you by your health care provider. Make sure you discuss any questions you have with your health care provider. Document Revised: 05/17/2022 Document Reviewed: 05/17/2022 [employer] Patient Education 2022 [employer] Follow Up Care 12/25/2023 18:44:23 With:Mayco HERNANDEZ Address: [address] [place] [phone] Business (1) When:12/28/2023 Comments:Call Dr for diagnosis based follow up With:Brigitte Garcia Address: [address] [place] [phone] [employer] (1) When:12/28/2023 Comments:Follow-up with your primary care provider in 3 to 5 days. If symptoms worsen, do not improve, or new symptoms arise please report back to emergency department for further evaluation. [facility]03-29-2024 Hospital Discharge instructions Patient Education 12/23/2023 13:23:26 Kidney Stones Kidney Stones Kidney stones are solid, rock-like deposits that form inside of the kidneys. The kidneys are a pairof organs that make urine. A kidney stone may form in a kidney and move into other parts of the urinary tract, including the tubes that connect the kidneys to the bladder (ureters), the bladder, and the tube that carries urine out of the body (urethra). As the stone moves through these areas, it can cause intense pain and block the flow of urine. Kidney stones are created when high levels of certain minerals are found in the urine. The stones are usually passed out of the body through urination, but in some cases, medical treatment may be needed to remove them. What are the causes? Kidney stones may be caused by: A condition in which certain glands produce too much parathyroid hormone (primary hyperparathyroidism), which causes too much calcium buildup in the blood. A buildup of uric acid crystals in the bladder (hyperuricosuria). Uric acid is a chemical that the body produces when you eat certain foods. It usually leaves the body in the urine. Narrowing (stricture) of one or both of the ureters. A kidney blockage that is present at (congenital obstruction). Past surgery on the kidney or the ureters. What increases the risk? The following factors may make you more likely to develop this condition: Having had a kidney stone in the past. Having a family history of kidney stones. Not drinking enough water. Eating a diet that is high in protein, salt (sodium), or sugar. Being overweight or obese. What are the signs or symptoms? Symptoms of a kidney stone may include: Pain in the side of the abdomen, right below the ribs (flank pain). Pain usually spreads (radiates)to the groin. Needing to urinate often or urgently. Painful urination. Blood in the urine (hematuria). Nausea. Vomiting. Fever and chills. How is this diagnosed? This condition may be diagnosed based on: Your symptoms and medical history. A physical exam. Blood tests. Urine tests. These may be done before and after the stone passes out of your body through urination. Imaging tests, such as a CT scan, abdominal X-ray, or ultrasound. A procedure to examine the inside of the bladder (cystoscopy). How is this treated? Treatment for kidney stones depends on the size, location, and makeup of the stones. Kidney stones will often pass out of the body through urination. You may need to: Increase your fluid intake to help pass the stone. In some cases, you may be given fluids through an IV and may need to be monitored in the hospital. Take medicine for pain. Make changes in your diet to help prevent kidney stones from coming back. Sometimes, procedures are needed to remove a kidney stone. This may involve: A procedure to break up kidney stones using: ?A focused beam of light (laser therapy). ?Shock waves (extracorporeal shock wave lithotripsy). Surgery to remove kidney stones. This may be needed if you have severe pain or have stones that block your urinary tract. Follow these instructions at home: Medicines Take gaqf-hii-weaolli and prescription medicines only as told by your health care provider. Ask your health care provider if the medicine prescribed to you requires you to avoid driving or using heavy machinery. Eating and drinking Drink enough fluid to keep your urine pale yellow. You may be instructed to drink at least 8 10 glasses of water each day. This will help you pass the kidney stone. If directed, change your diet. This may include: ?Limiting how much sodium you eat. ?Eating more fruits and vegetables. ?Limiting how much animal protein you eat. Animal proteins include red meat, poultry, fish, and eggs. ?Eating a normal amount of calcium (1,000 1,300 mg per day). Follow instructions from your health care provider about eating or drinking restrictions. General instructions Collect urine samples as told by your health care provider. You may need to collect a urine sample: ?24 hours after you pass the stone. ?8 12 weeks after you pass the kidney stone, and every 6 12 months after that. Strain your urine every time you urinate, for as long as directed. Use the strainer that your health care provider recommends. Do not throw out the kidney stone after passing it. Keep the stone so it can be tested by your health care provider. Testing the makeup of your kidney stone may help prevent you from getting kidney stones in the future. Keep all follow-up visits. You may need follow-up X-rays or ultrasounds to make sure that your stone has passed. How is this prevented? To prevent another kidney stone: Drink enough fluid to keep your urine pale yellow. This is the best way to prevent kidney stones. Eat a healthy diet. Follow recommendations from your health care provider about foods to avoid. Recommendations vary depending on the type of kidney stone that you have. You may be instructed to eat a low-protein diet. Maintain a healthy weight. Where to find more information National Kidney Foundation (NKF): www.kidney.org Urology Care Foundation (UCF): www.urologyhealth.org Contact a health care provider if: You have pain that gets worse or does not get better with medicine. Get help right away if: You have a fever or chills. You develop severe pain. You develop new abdominal pain. You faint. You are unable to urinate. Summary Kidney stones are solid, rock-like deposits that form inside of the kidneys. Kidney stones can cause nausea, vomiting, blood in the urine, abdominal pain, and the urge to urinate often. Treatment for kidney stones depends on the size, location, and makeup of the stones. Kidney stones will often pass out of the body through urination. Kidney stones can be prevented by drinking enough fluids, eating a healthy diet, and maintaining a healthy weight. This information is not intended to replace advice given to you by your health care provider. Make sure you discuss any questions you have with your health care provider. Document Revised: 12/22/2022 Document Reviewed: 12/22/2022 [employer] Patient Education 2022 [employer] 12/23/2023 13:23:26 Hematuria, Adult Hematuria, Adult Hematuria is blood in the urine. Blood may be visible in the urine, or it may be identified with a test. This condition can be caused by infections of the bladder, urethra, kidney, or prostate. Otherpossible causes include: Kidney stones. Cancer of the urinary tract. Too much calcium in the urine. Conditions that are passed from parent to child (inherited conditions). Exercise that requires a lot of energy. Infections can usually be treated with medicine, and a kidney stone usually will pass through your urine. If neither of these is the cause of your hematuria, more tests may be needed to identify the cause of your symptoms. It is very important to tell your health care provider about any blood in your urine, even if it ispainless or the blood stops without treatment. Blood in the urine, when it happens and then stops and then happens again, can be a symptom of a very serious condition, including cancer. There is no pain in the initial stages of many urinary cancers. Follow these instructions at home: Medicines Take njdr-gfc-cmtwbet and prescription medicines only as told by your health care provider. If you were prescribed an antibiotic medicine, take it as told by your health care provider. Do notstop taking the antibiotic even if you start to feel better. Eating and drinking Drink enough fluid to keep your urine pale yellow. It is recommended that you drink 3 4 quarts (2.83.8 L) a day. If you have been diagnosed with an infection, drinking cranberry juice in addition tolarge amounts of water is recommended. Avoid caffeine, tea, and carbonated beverages. These tend to irritate the bladder. Avoid alcohol because it may irritate the prostate (in males). General instructions If you have been diagnosed with a kidney stone, follow your health care provider's instructions about straining your urine to catch the stone. Empty your bladder often. Avoid holding urine for long periods of time. If you are female: ?After a bowel movement, wipe from front to back and use each piece of toilet paper only once. ?Empty your bladder before and after sex. Pay attention to any changes in your symptoms. Tell your health care provider about any changes or any new symptoms. It is up to you to get the results of any tests. Ask your health care provider, or the department that is doing the test, when your results will be ready. Keep all follow-up visits. This is important. Contact a health care provider if: You develop back pain. You have a fever or chills. You have nausea or vomiting. Your symptoms do not improve after 3 days. Your symptoms get worse. Get help right away if: You develop severe vomiting and are unable to take medicine without vomiting. You develop severe pain in your back or abdomen even though you are taking medicine. You pass a large amount of blood in your urine. You pass blood clots in your urine. You feel very weak or like you might faint. You faint. Summary Hematuria is blood in the urine. It has many possible causes. It is very important that you tell your health care provider about any blood in your urine, even ifit is painless or the blood stops without treatment. Take ismr-brn-ehiridi and prescription medicines only as told by your health care provider. Drink enough fluid to keep your urine pale yellow. This information is not intended to replace advice given to you by your health care provider. Make sure you discuss any questions you have with your health care provider. Document Revised: 05/13/2021 Document Reviewed: 05/13/2021 [employer] Patient Education 2022 [employer] Follow Up Care 12/23/2023 11:14:57 With:Brigitte Garcia Address: [address] [place], [place] [id number] Business (1) When:3 to 5 days [facility]03-29-2024 Evaluation + Plan noteExtracted from: Title:ED Note Author:Iban Haji MD Date: Hematuria (R31.9: Hematuria, unspecified) Right flank pain (R10.9: Unspecified abdominal pain) Orders: cephalexin, 500 mg = 1 cap(s), Oral, QID, X 5 day(s), # 20 cap(s), Refills(s) 0, Pharmacy: [facility] #[id number], 170, cm, 12/23/23 11:37:00 EDT, Height/Length Dosing, 92, kg, 12/23/23 11:37:00 EDT, Weight Dosing tamsulosin, 0.4 mg = 1 cap(s), Oral, Daily, # 10 cap(s), Refills(s) 0, Pharmacy: [facility] #[id number], 170, cm, 12/23/23 11:37:00 EDT, Height/Length Dosing, 92, kg, 12/23/23 11:37:00 EDT, Weight Dosing Urine Strainer to go US Renal Future Appointments Appointment Date:01/12/2024 10:40:00 AM Scheduled Provider:Brigitte Carpenter Location:[facility] Appointment Type: Open Future Scheduled Tests Laboratory* U Protein/Creat Ratio 12/08/23 * HgbA1c 12/08/23 * Albumin Level Urine 12/08/23 * TIBC Calculated 12/08/23 * Urinalysis 12/08/23 * Vitamin D 25 Hydroxy 12/08/23 * CBC w/ Auto Diff 12/08/23 * Comprehensive Metabolic Panel 12/08/23 * Ferritin 12/08/23 * Iron Level 12/08/23 * Lipid Panel 12/08/23 * Reticulocyte Count 12/08/23 * Thyroid Stimulating Hormone 12/08/23 * Vitamin B12 Level 12/08/23 Radiology* MA Mamm Screen w/CAD if perf and 3D Tye 12/08/23 [facility]03-18-2024 Hospital Discharge instructions Patient Education 12/12/2023 15:58:55 Pyelonephritis, Adult, Ildc-ke-Fqlk Pyelonephritis, Adult Pyelonephritis is an infection that occurs in the kidney. The kidneys are organs that help clean the blood by moving waste out of the blood and into the pee (urine). This infection can happen quickly, or it can last for a long time. In most cases, it clears up with treatment and does not cause other problems. What are the causes? This condition may be caused by: Germs (bacteria) going from the bladder up to the kidney. This may happen after having a bladder infection. Germs going from the blood to the kidney. What increases the risk? This condition is more likely to develop in: women. Older people. People who have any of these conditions: ?Diabetes. ?Inflammation of the prostate gland (prostatitis), in males. ?Kidney stones or bladder stones. ?Other problems with the kidney or the parts of your body that carry pee from the kidneys to the bladder (ureters). ?Cancer. People who have a small, thin tube (catheter) placed in the bladder. People who are sexually active. Women who use a medicine that kills sperm (spermicide) to prevent . People who have had a prior urinary tract infection (UTI). What are the signs or symptoms? Symptoms of this condition include: Peeing often. A strong urge to pee right away. Burning or stinging when peeing. Belly pain. Back pain. Pain in the side (flank area). Fever or chills. Blood in the pee, or dark pee. Feeling sick to your stomach (nauseous) or throwing up (vomiting). How is this treated? This condition may be treated by: Taking antibiotic medicines by mouth (orally). Drinking enough fluids. If the infection is bad, you may need to stay in the hospital. You may be given antibiotics and fluids that are put directly into a vein through an IV tube. In some cases, other treatments may be needed. Follow these instructions at home: Medicines Take your antibiotic medicine as told by your doctor. Do not stop taking the antibiotic even if youstart to feel better. Take ojxs-fyb-beixnqv and prescription medicines only as told by your doctor. General instructions Drink enough fluid to keep your pee pale yellow. Avoid caffeine, tea, and carbonated drinks. Pee (urinate) often. Avoid holding in pee for long periods of time. Pee before and after sex. After pooping (having a bowel movement), women should wipe from front to back. Use each tissue onlyonce. Keep all follow-up visits as told by your doctor. This is important. Contact a doctor if: You do not feel better after 2 days. Your symptoms get worse. You have a fever. Get help right away if: You cannot take your medicine or drink fluids as told. You have chills and shaking. You throw up. You have very bad pain in your side or back. You feel very weak or you pass out (faint). Summary Pyelonephritis is an infection that occurs in the kidney. In most cases, this infection clears up with treatment and does not cause other problems. Take your antibiotic medicine as told by your doctor. Do not stop taking the antibiotic even if youstart to feel better. Drink enough fluid to keep your pee pale yellow. This information is not intended to replace advice given to you by your health care provider. Make sure you discuss any questions you have with your health care provider. Document Revised: 04/22/2022 Document Reviewed: 04/22/2022 [employer] Patient Education 2022 [employer] Follow Up Care 12/12/2023 12:42:50 With:Brigitte Garcia Address: [address] [place] [address] [facility] (1) When:12/15/2023 15:22:28 Comments:Follow-up with your primary care provider in 3 to 5 days. If symptoms worsen, do not improve, or new symptoms arise please report back to emergency department for further evaluation. [facility]03-18-2024 Evaluation + Plan noteExtracted from: Title:ED Note Author:Wes Chen PA-C te:12/12/23 Pyelonephritis, acute (N10: Acute pyelonephritis) Orders: acetaminophen, 650 mg = 2 tab(s), Tab, Oral, Once, Stop date 12/12/23 14:27:00 EDT, STAT, Start date 12/12/23 14:27:00 EDT, 12/12/23 14:27:00 EDT acetaminophen-oxycodone, 1 tab(s), Oral, q4hr for pain for 3 day(s), 12 tab(s), Refill(s) 0, [facility] #[id number], 170, cm, 12/12/23 12:49:00 EDT, Height/Length Dosing, 92, kg, 12/12/23 12:49:00 EDT, Weight Dosing cephalexin, 500 mg = 1 cap(s), Oral, q6hr, X 7 day(s), # 28 cap(s), Refills(s) 0, Pharmacy: [facility] #[id number], 170, cm, 12/12/23 12:49:00 EDT, Height/Length Dosing, 92, kg, 12/12/23 12:49:00 EDT, Weight Dosing ondansetron, 4 mg = 1 tab(s), Oral, q8hr, PRN Nausea/Vomiting, # 12 tab(s), Refills(s) 0, Pharmacy: [facility] #[id number], 170, cm, 12/12/23 12:49:00 EDT, Height/Length Dosing, 92, kg, 12/12/23 12:49:00 EDT, Weight Dosing Basic Metabolic Panel CBC w/ Auto Diff CT Abdomen/Pelvis w/o Contrast eGFR Extra Blue Tube Extra SST Tube Hepatic Function Panel Lipase Level UA With Cult Reflex Urine Culture Future Appointments Appointment Date:01/12/2024 10:40:00 AM Scheduled Provider:Brigitte Carpenter Location:[facility] Appointment Type: Open Diagnostic Tests Pending * Urine Culture 12/12/23 Future Scheduled Tests Laboratory* U Protein/Creat Ratio 12/08/23 * HgbA1c 12/08/23 * Albumin Level Urine 12/08/23 * TIBC Calculated 12/08/23 * Urinalysis 12/08/23 * Vitamin D 25 Hydroxy 12/08/23 * CBC w/ Auto Diff 12/08/23 * Comprehensive Metabolic Panel 12/08/23 * Ferritin 12/08/23 * Iron Level 12/08/23 * Lipid Panel 12/08/23 * Reticulocyte Count 12/08/23 * Thyroid Stimulating Hormone 12/08/23 * Vitamin B12 Level 12/08/23 Radiology* MA Mamm Screen w/CAD if perf and 3D Tye 12/08/23 [facility]03-14-2024 Hospital Discharge instructions Patient Education 12/08/2023 14:41:40 Gastroesophageal Reflux Disease, Adult Gastroesophageal Reflux Disease, Adult Gastroesophageal reflux (JADA) happens when acid from the stomach flows up into the tube that connects the mouth and the stomach (esophagus). Normally, food travels down the esophagus and stays in thestomach to be digested. However, when a person has JADA, food and stomach acid sometimes move back up into the esophagus. If this becomes a more serious problem, the person may be diagnosed with a disease called gastroesophageal reflux disease (GERD). GERD occurs when the reflux: Happens often. Causes frequent or severe symptoms. Causes problems such as damage to the esophagus. When stomach acid comes in contact with the esophagus, the acid may cause inflammation in the esophagus. Over time, GERD may create small holes (ulcers) in the lining of the esophagus. What are the causes? This condition is caused by a problem with the muscle between the esophagus and the stomach (lower esophageal sphincter, or LES). Normally, the LES muscle closes after food passes through the esophagus to the stomach. When the LES is weakened or abnormal, it does not close properly, and that allowsfood and stomach acid to go back up into the esophagus. The LES can be weakened by certain dietary substances, medicines, and medical conditions, including: Tobacco use. . Having a hiatal hernia. Alcohol use. Certain foods and beverages, such as coffee, chocolate, onions, and peppermint. What increases the risk? You are more likely to develop this condition if you: Have an increased body weight. Have a connective tissue disorder. Take NSAIDs, such as ibuprofen. What are the signs or symptoms? Symptoms of this condition include: Heartburn. Difficult or painful swallowing and the feeling of having a lump in the throat. A bitter taste in the mouth. Bad breath and having a large amount of saliva. Having an upset or bloated stomach and belching. Chest pain. Different conditions can cause chest pain. Make sure you see your health care provider if you experience chest pain. Shortness of breath or wheezing. Ongoing (chronic) cough or a nighttime cough. Wearing away of tooth enamel. Weight loss. How is this diagnosed? This condition may be diagnosed based on a medical history and a physical exam. To determine if youhave mild or severe GERD, your health care provider may also monitor how you respond to treatment. You may also have tests, including: A test to examine your stomach and esophagus with a small camera (endoscopy). A test that measures the acidity level in your esophagus. A test that measures how much pressure is on your esophagus. A barium swallow or modified barium swallow test to show the shape, size, and functioning of your esophagus. How is this treated? Treatment for this condition may vary depending on how severe your symptoms are. Your health care provider may recommend: Changes to your diet. Medicine. Surgery. The goal of treatment is to help relieve your symptoms and to prevent complications. Follow these instructions at home: Eating and drinking Follow a diet as recommended by your health care provider. This may involve avoiding foods and drinks such as: ?Coffee and tea, with or without caffeine. ?Drinks that contain alcohol. ?Energy drinks and sports drinks. ?Carbonated drinks or sodas. ?Chocolate and cocoa. ?Peppermint and mint flavorings. ?Garlic and onions. ?Horseradish. ?Spicy and acidic foods, including peppers, chili powder, varela powder, vinegar, hot sauces, and barbecue sauce. ?[place] fruit juices and citrus fruits, such as oranges, nicholas, and limes. ?Tomato-based foods, such as red sauce, chili, salsa, and pizza with red sauce. ?Fried and fatty foods, such as donuts, guinean fries, potato chips, and high-fat dressings. ?High-fat meats, such as hot dogs and fatty cuts of red and white meats, such as rib eye steak, sausage, ham, and goldman. ?High-fat dairy items, such as whole milk, butter, and cream cheese. Eat small, frequent meals instead of large meals. Avoid drinking large amounts of liquid with your meals. Avoid eating meals during the 2 3 hours before bedtime. Avoid lying down right after you eat. Do not exercise right after you eat. Lifestyle Do not use any products that contain nicotine or tobacco. These products include cigarettes, chewing tobacco, and vaping devices, such as e-cigarettes. If you need help quitting, ask your health careprovider. Try to reduce your stress by using methods such as yoga or meditation. If you need help reducing stress, ask your health care provider. If you are overweight, reduce your weight to an amount that is healthy for you. Ask your health care provider for guidance about a safe weight loss goal. General instructions Pay attention to any changes in your symptoms. Take lxlu-cen-hshioyn and prescription medicines only as told by your health care provider. Do not take aspirin, ibuprofen, or other NSAIDs unless your health care provider told you to take these medicines. Wear loose-fitting clothing. Do not wear anything tight around your waist that causes pressure on your abdomen. Raise (elevate) the head of your bed about 6 inches (15 cm). You can use a wedge to do this. Avoid bending over if this makes your symptoms worse. Keep all follow-up visits. This is important. Contact a health care provider if: You have: ?New symptoms. ?Unexplained weight loss. ?Difficulty swallowing or it hurts to swallow. ?Wheezing or a persistent cough. ?A hoarse voice. Your symptoms do not improve with treatment. Get help right away if: You have sudden pain in your arms, neck, jaw, teeth, or back. You suddenly feel sweaty, dizzy, or light-headed. You have chest pain or shortness of breath. You vomit and the vomit is green, yellow, or black, or it looks like blood or coffee grounds. You faint. You have stool that is red, bloody, or black. You cannot swallow, drink, or eat. These symptoms may represent a serious problem that is an emergency. Do not wait to see if the symptoms will go away. Get medical help right away. Call your local emergency services (911 in the [place] Do not drive yourself to the hospital. Summary Gastroesophageal reflux happens when acid from the stomach flows up into the esophagus. GERD is a disease in which the reflux happens often, causes frequent or severe symptoms, or causes problems such as damage to the esophagus. Treatment for this condition may vary depending on how severe your symptoms are. Your health care provider may recommend diet and lifestyle changes, medicine, or surgery. Contact a health care provider if you have new or worsening symptoms. Take biba-oqb-criykvn and prescription medicines only as told by your health care provider. Do not take aspirin, ibuprofen, or other NSAIDs unless your health care provider told you to do so. Keep all follow-up visits as told by your health care provider. This is important. This information is not intended to replace advice given to you by your health care provider. Make sure you discuss any questions you have with your health care provider. Document Revised: 03/23/2021 Document Reviewed: 03/23/2021 [employer] Patient Education 2022 [employer] 12/08/2023 14:41:37 Migraine Headache Migraine Headache A migraine headache is an intense, throbbing pain on one side or both sides of the head. Migraine headaches may also cause other symptoms, such as nausea, vomiting, and sensitivity to light and noise. A migraine headache can last from 4 hours to 3 days. Talk with your doctor about what things may bring on (trigger) your migraine headaches. What are the causes? The exact cause of this condition is not known. However, a migraine may be caused when nerves in the brain become irritated and release chemicals that cause inflammation of blood vessels. This inflammation causes pain. This condition may be triggered or caused by: Drinking alcohol. Smoking. Taking medicines, such as: ?Medicine used to treat chest pain (nitroglycerin). ? control pills. ?Estrogen. ?Certain blood pressure medicines. Eating or drinking products that contain nitrates, glutamate, aspartame, or tyramine. Aged cheeses,chocolate, or caffeine may also be triggers. Doing physical activity. Other things that may trigger a migraine headache include: Menstruation. . Hunger. Stress. Lack of sleep or too much sleep. Weather changes. Fatigue. What increases the risk? The following factors may make you more likely to experience migraine headaches: Being a certain age. This condition is more common in people who are 25 55 years old. Being female. Having a family history of migraine headaches. Being . Having a mental health condition, such as depression or anxiety. Being obese. What are the signs or symptoms? The main symptom of this condition is pulsating or throbbing pain. This pain may: Happen in any area of the head, such as on one side or both sides. Interfere with daily activities. Get worse with physical activity. Get worse with exposure to bright lights or loud noises. Other symptoms may include: Nausea. Vomiting. Dizziness. General sensitivity to bright lights, loud noises, or smells. Before you get a migraine headache, you may get warning signs (an aura). An aura may include: Seeing flashing lights or having blind spots. Seeing bright spots, halos, or zigzag lines. Having tunnel vision or blurred vision. Having numbness or a tingling feeling. Having trouble talking. Having muscle weakness. Some people have symptoms after a migraine headache (postdromal phase), such as: Feeling tired. Difficulty concentrating. How is this diagnosed? A migraine headache can be diagnosed based on: Your symptoms. A physical exam. Tests, such as: ?CT scan or an MRI of the head. These imaging tests can help rule out other causes of headaches. ?Taking fluid from the spine (lumbar puncture) and analyzing it (cerebrospinal fluid analysis, or CSF analysis). How is this treated? This condition may be treated with medicines that: Relieve pain. Relieve nausea. Prevent migraine headaches. Treatment for this condition may also include: Acupuncture. Lifestyle changes like avoiding foods that trigger migraine headaches. Biofeedback. Cognitive behavioral therapy. Follow these instructions at home: Medicines Take ealv-gvj-udnbqqo and prescription medicines only as told by your health care provider. Ask your health care provider if the medicine prescribed to you: ?Requires you to avoid driving or using heavy machinery. ?Can cause constipation. You may need to take these actions to prevent or treat constipation: ?Drink enough fluid to keep your urine pale yellow. ?Take vccf-xqp-ujqwlyl or prescription medicines. ?Eat foods that are high in fiber, such as beans, whole grains, and fresh fruits and vegetables. ?Limit foods that are high in fat and processed sugars, such as fried or sweet foods. Lifestyle Do not drink alcohol. Do not use any products that contain nicotine or tobacco, such as cigarettes, e- cigarettes, and chewing tobacco. If you need help quitting, ask your health care provider. Get at least 8 hours of sleep every night. Find ways to manage stress, such as meditation, deep breathing, or yoga. General instructions Keep a journal to find out what may trigger your migraine headaches. For example, write down: ?What you eat and drink. ?How much sleep you get. ?Any change to your diet or medicines. If you have a migraine headache: ?Avoid things that make your symptoms worse, such as bright lights. ?It may help to lie down in a dark, quiet room. ?Do not drive or use heavy machinery. ?Ask your health care provider what activities are safe for you while you are experiencing symptoms. Keep all follow-up visits as told by your health care provider. This is important. Contact a health care provider if: You develop symptoms that are different or more severe than your usual migraine headache symptoms. You have more than 15 headache days in one month. Get help right away if: Your migraine headache becomes severe. Your migraine headache lasts longer than 72 hours. You have a fever. You have a stiff neck. You have vision loss. Your muscles feel weak or like you cannot control them. You start to lose your balance often. You have trouble walking. You faint. You have a seizure. Summary A migraine headache is an intense, throbbing pain on one side or both sides of the head. Migraines may also cause other symptoms, such as nausea, vomiting, and sensitivity to light and noise. This condition may be treated with medicines and lifestyle changes. You may also need to avoid certain things that trigger a migraine headache. Keep a journal to find out what may trigger your migraine headaches. Contact your health care provider if you have more than 15 headache days in a month or you develop symptoms that are different or more severe than your usual migraine headache symptoms. This information is not intended to replace advice given to you by your health care provider. Make sure you discuss any questions you have with your health care provider. Document Revised: 01/04/2020 Document Reviewed: 10/25/2019 [employer] Patient Education 2022 [employer] 12/08/2023 14:40:31 Fatigue Fatigue If you have fatigue, you feel tired all the time and have a lack of energy or a lack of motivation.Fatigue may make it difficult to start or complete tasks because of exhaustion. Occasional or mild fatigue is often a normal response to activity or life. However, long-term (chronic) or extreme fatigue may be a symptom of a medical condition such as: Depression. Not having enough red blood cells or hemoglobin in the blood (anemia). A problem with a small gland located in the lower front part of the neck (thyroid disorder). Rheumatologic conditions. These are problems related to the body's defense system (immune system). Infections, especially certain viral infections. Fatigue can also lead to negative health outcomes over time. Follow these instructions at home: Medicines Take bdnx-ggm-wugmvdi and prescription medicines only as told by your health care provider. Take a multivitamin if told by your health care provider. Do not use herbal or dietary supplements unless they are approved by your health care provider. Eating and drinking Avoid heavy meals in the evening. Eat a well-balanced diet, which includes lean proteins, whole grains, plenty of fruits and vegetables, and low-fat dairy products. Avoid eating or drinking too many products with caffeine in them. Avoid alcohol. Drink enough fluid to keep your urine pale yellow. Activity Exercise regularly, as told by your health care provider. Use or practice techniques to help you relax, such as yoga, dileep chi, meditation, or massage therapy. Lifestyle Change situations that cause you stress. Try to keep your work and personal schedules in balance. Do not use recreational or illegal drugs. General instructions Monitor your fatigue for any changes. Go to bed and get up at the same time every day. Avoid fatigue by pacing yourself during the day and getting enough sleep at night. Maintain a healthy weight. Contact a health care provider if: Your fatigue does not get better. You have a fever. You suddenly lose or gain weight. You have headaches. You have trouble falling asleep or sleeping through the night. You feel angry, guilty, anxious, or sad. You have swelling in your legs or another part of your body. Get help right away if: You feel confused, feel like you might faint, or faint. Your vision is blurry or you have a severe headache. You have severe pain in your abdomen, your back, or the area between your waist and hips (pelvis). You have chest pain, shortness of breath, or an irregular or fast heartbeat. You are unable to urinate, or you urinate less than normal. You have abnormal bleeding from the rectum, nose, lungs, nipples, or, if you are female, the vagina. You vomit blood. You have thoughts about hurting yourself or others. These symptoms may be an emergency. Get help right away. Call 911. Do not wait to see if the symptoms will go away. Do not drive yourself to the hospital. Get help right away if you feel like you may hurt yourself or others, or have thoughts about takingyour own life. Go to your nearest emergency room or: Call 911. Call the National Suicide Prevention Lifeline at or 925. This is open 24 hours a day. Text the Crisis Text Line at 580423. Summary If you have fatigue, you feel tired all the time and have a lack of energy or a lack of motivation. Fatigue may make it difficult to start or complete tasks because of exhaustion. Long-term (chronic) or extreme fatigue may be a symptom of a medical condition. Exercise regularly, as told by your health care provider. Change situations that cause you stress. Try to keep your work and personal schedules in balance. This information is not intended to replace advice given to you by your health care provider. Make sure you discuss any questions you have with your health care provider. Document Revised: 07/05/2022 Document Reviewed: 07/05/2022 [employer] Patient Education 2022 [employer] 12/08/2023 14:40:28 Paresthesia Paresthesia Paresthesia is an abnormal burning or prickling sensation. It is usually felt in the hands, arms, legs, or feet. However, it may occur in any part of the body. Usually, paresthesia is not painful. Itmay feel like: Tingling or numbness. Buzzing. Itching. Paresthesia may occur without any clear cause, or it may be caused by: Breathing too quickly (hyperventilation). Pressure on a nerve. An underlying medical condition. Side effects of a medicine. Nutritional deficiencies. Exposure to toxic chemicals. Most people experience temporary (transient) paresthesia at some time in their lives. For some people, it may be long-lasting (chronic) because of an underlying medical condition. If you have paresthesia that lasts a long time, you need to be evaluated by your health care provider. Follow these instructions at home: Nutrition Eat a healthy diet. This includes: Eating foods that are high in fiber, such as beans, whole grains, and fresh fruits and vegetables. Limiting foods that are high in fat and processed sugars, such as fried or sweet foods. Alcohol use Avoid or limit alcohol. Too much alcohol can cause a vitamin B deficiency, and vitamin B is needed for healthy nerves. Do not drink alcohol if: ?Your health care provider tells you not to drink. ?You are , may be , or are planning to become . If you drink alcohol: ?Limit how much you have to: ?0 1 drink a day for women. ?0 2 drinks a day for men. ?Know how much alcohol is in your drink. In the [place] one drink equals one 12 oz bottle of beer (355 mL), one 5 oz glass of wine (148 mL), or one 1 oz glass of hard liquor (44 mL). General instructions Take kxnm-prr-ajewahp and prescription medicines only as told by your health care provider. Do not use any products that contain nicotine or tobacco. These products include cigarettes, chewing tobacco, and vaping devices, such as e-cigarettes. If you need help quitting, ask your health careprovider. If you have diabetes, work closely with your health care provider to keep your blood sugar under control. If you have numbness in your feet: ?Check every day for signs of injury or infection. Watch for redness, warmth, and swelling. ?Wear padded socks and comfortable shoes. These help protect your feet. Keep all follow-up visits. This is important. Contact a health care provider if you: Have paresthesia that gets worse or does not go away. Have numbness after an injury. Have a burning or prickling feeling that gets worse when you walk. Have pain, cramps, or dizziness, or you faint. Develop a rash. Get help right away if you: Feel muscle weakness. Develop new weakness in an arm or leg. Have trouble walking or moving. Have problems with speech, understanding, or vision. Feel confused. Cannot control your bladder or bowel movements. These symptoms may be an emergency. Get help right away. Call 911. Do not wait to see if the symptoms will go away. Do not drive yourself to the hospital. Summary Paresthesia is an abnormal burning or prickling sensation that is usually felt in the hands, arms, legs, or feet. It may also occur in other parts of the body. Paresthesia may occur without any clear cause, or it may be caused by breathing too quickly (hyperventilation), pressure on a nerve, an underlying medical condition, side effects of a medicine, nutritional deficiencies, or exposure to toxic chemicals. If you have paresthesia that lasts a long time, you need to be evaluated by your health care provider. This information is not intended to replace advice given to you by your health care provider. Make sure you discuss any questions you have with your health care provider. Document Revised: 05/24/2022 Document Reviewed: 05/24/2022 [employer] Patient Education 2022 [employer] 12/08/2023 14:40:20 Fungal Nail Infection Fungal Nail Infection A fungal nail infection is a common infection of the toenails or fingernails. This condition affects toenails more often than fingernails. It often affects the great, or big, toes. More than one nailmay be infected. The condition can be passed from person to person (is contagious). What are the causes? This condition is caused by a fungus, such as yeast or molds. Several types of fungi can cause the infection. These fungi are common in moist and warm areas. If your hands or feet come into contact with the fungus, it may get into a crack in your fingernail or toenail or in the surrounding skin, and cause an infection. What increases the risk? The following factors may make you more likely to develop this condition: Being of older age. Having certain medical conditions, such as: ?Athlete's foot. ?Diabetes. ?Poor circulation. ?A weak body defense system (immune system). Walking barefoot in areas where the fungus thrives, such as showers or locker rooms. Wearing shoes and socks that cause your feet to sweat. Having a nail injury or a recent nail surgery. What are the signs or symptoms? Symptoms of this condition include: A pale spot on the nail. Thickening of the nail. A nail that becomes yellow, brown, or white. A brittle or ragged nail edge. A nail that has lifted away from the nail bed. How is this diagnosed? This condition is diagnosed with a physical exam. Your health care provider may take a scraping or clipping from your nail to test for the fungus. How is this treated? Treatment is not needed for mild infections. If you have significant nail changes, treatment may include: Antifungal medicines taken by mouth (orally). You may need to take the medicine for several weeks or several months, and you may not see the results for a long time. These medicines can cause side effects. Ask your health care provider what problems to watch for. Antifungal nail armenian or nail cream. These may be used along with oral antifungal medicines. Laser treatment of the nail. Surgery to remove the nail. This may be needed for the most severe infections. It can take a long time, usually up to a year, for the infection to go away. The infection may alsocome back. Follow these instructions at home: Medicines Take or apply uatk-sky-stcftdy and prescription medicines only as told by your health care provider. Ask your health care provider about using kmqg-bjx-fkqikmu mentholated ointment on your nails. Nail care Trim your nails often. Wash and dry your hands and feet every day. Keep your feet dry. To do this: ?Wear absorbent socks, and change your socks frequently. ?Wear shoes that allow air to circulate, such as sandals or canvas tennis shoes. Throw out old shoes. If you go to a nail salon, make sure you choose one that uses clean instruments. Use antifungal foot powder on your feet and in your shoes. General instructions Do not share personal items, such as towels or nail clippers. Do not walk barefoot in shower rooms or locker rooms. Wear rubber gloves if you are working with your hands in wet areas. Keep all follow-up visits. This is important. Contact a health care provider if: You have redness, pain, or pus near the toenail or fingernail. Your infection is not getting better, or it is getting worse after several months. You have more circulation problems near the toenail or fingernail. You have brown or black discoloration of the nail that spreads to the surrounding skin. Summary A fungal nail infection is a common infection of the toenails or fingernails. Treatment is not needed for mild infections. If you have significant nail changes, treatment may include taking medicine orally and applying medicine to your nails. It can take a long time, usually up to a year, for the infection to go away. The infection may alsocome back. Take or apply lnaz-bfr-rhzaapb and prescription medicines only as told by your health care provider. This information is not intended to replace advice given to you by your health care provider. Make sure you discuss any questions you have with your health care provider. Document Revised: 12/14/2021 Document Reviewed: 12/14/2021 [employer] Patient Education 2022 [employer] 12/08/2023 14:40:15 Cancer Screening for Women Cancer Screening for Women A cancer screening is a test or exam that checks for cancer. Your health care provider will recommend specific cancer screenings based on your age, medical history (including risk factors), and family history of cancer. Work with your health care provider to create a cancer screening schedule that protects your health. Who should have screening? All women should be considered for screening of certain cancers, including breast cancer, cervical cancer, colorectal cancer, and skin cancer. Your health care provider may recommend screenings for other types of cancer if: You had cancer before. You have a family member with cancer. You have abnormal genes that could increase the risk of cancer. You have risk factors for certain cancers, such as current or past use of tobacco products, or being overweight. When you should be screened for cancer depends on: Your age. Your medical history and your family's medical history. Certain lifestyle factors, such as smoking or other use of tobacco products. Environmental exposure, such as to asbestos. How is screening done? Breast cancer Breast cancer screening is done with a test that takes images of breast tissue (mammogram). Here are some screening guidelines for women at average risk: When you are age 40 44, you will be given the choice to start having mammograms. When you are age 45 54, you should have a mammogram every year. You may start having mammograms before age 45 if you have risk factors for breast cancer, such as having an immediate family member with breast cancer. At age 55 or older, you should have a mammogram every 1 2 years for as long as you are in good health and have a life expectancy of 10 years or longer. It is important to know what your breasts look and feel like so you can report any changes to your health care provider. Cervical cancer All women at average risk should be considered for screening for cervical cancer starting no later than age 25 and continuing until age 65. Screening should not begin earlier than age 21. You will have tests every 3 5 years, depending on your results and the type of screening test. Talk with your health care provider about which screening test is right for you and how often you should be screened. ?Cervical cancer screening is done with an HPV (human papillomavirus) test to identify the virus that causes cervical cancer. To perform the test, a health care provider takes a swab of cells from yourcervix during a pelvic exam. This test may be performed along with a Pap test. This testchecks forabnormalities in the lowest part of the uterus (cervix). ?If you have had the HPV vaccine, you will still be screened for cervical cancer and follow normal screening recommendations. You do not need to be screened for cervical cancer if any of the following apply to you: You are older than age 65 and you have had normal screening tests in the past 10 years with no serious cervical precancer or cancer in the last 25 years. Your cervix and uterus have been removed, and you have never had cervical cancer or abnormal cells that could become cancer (precancerous cells). Colorectal cancer All adults should have screenings starting at age 45 and continuing until age 75. Your health care provider may recommend screening before age 45. You will have tests every 1 10 years, depending on your results and the type of screening test. People at increased risk should start screening at an earlier age. Talk with your health care provider about which screening test is right for you and how often you should be screened. Colorectal cancer screening looks for cancer or for growths called polyps that often form before cancer starts. Tests to look for cancer or polyps include: Colonoscopy or flexible sigmoidoscopy. For these procedures, a flexible tube with a small camera isinserted into the rectum. CT colonography. This test uses X-rays and a contrast dye to check the colon for polyps. If a polypis found, you may need to have a colonoscopy so the polyp can be located and removed. Tests to look for cancer in the stool (feces) include: Guaiac-based fecal occult blood test (FOBT). This test can find blood in stool. It can be done at home with a kit. Fecal immunochemical test (FIT). This test can find blood in stool. For this test, you will need tocollect stool samples at home. Stool DNA test. This test looks for blood in stool and any changes in DNA that can lead to colon cancer. For this test, you will need to collect a stool sample at home and send it to a lab. Endometrial cancer There is no standard screening test for endometrial cancer, and women at average risk do not routinely need to have this screening. Talk with your health care provider about whether screening is right for you. If it is, this screening is performed through: Endometrial tissue biopsy. This tests a sample of tissue taken from the lining of the uterus. Vaginal ultrasound. If you are at increased risk for endometrial cancer, you may need to have these tests more often than normal. You are at increased risk if: You have a family history of ovarian, uterine, or colon cancer. You are taking tamoxifen, a medicine used to treat breast cancer. You have certain types of colon cancer. If you have reached menopause, it is especially important to talk with your health care provider about any vaginal bleeding or spotting. Screening for endometrial cancer is not recommended for women who do not have symptoms of the cancer, such as vaginal bleeding. Lung cancer Lung cancer screening is done with a CT scan that looks for abnormal changes in the lungs. Discuss lung cancer screening with your health care provider if you are 50 80 years old and if any of the following apply to you: You currently smoke. You used to smoke heavily. You have a smoking history of 1 pack of cigarettes a day for 20 years or 2 packs a day for 10 years. You have quit smoking within the past 15 years. You may need to be screened every year if you smoke heavily or if you used to smoke. Skin cancer Skin cancer screening is done by checking the skin for unusual moles or spots and any changes in existing moles. Your health care provider should check your skin for signs of skin cancer at every physical exam. You should check your skin every month and tell your health care provider right away if anything looks unusual. Women with a hanbqi-joyy-uoghex risk for skin cancer may want to see a skinning machine feeder (stamp maker) for an annual body check. What are the benefits of screening? Cancer screening is done to look for cancer in the very early stages, before it spreads and becomesharder to treat and before you would start to notice symptoms. Finding cancer early improves the chances of successful treatment. It may save your life. Where to find more information [place] [employer]: www.cancer.org Centers for Disease Control and Prevention: www.cdc.gov National Cancer [place]: www.cancer.gov [place] Department of Health and Human Services: www.womenshealth.gov Contact a health care provider if: You have concerns about any signs or symptoms of cancer. These may include: Skin problems. You may have: ?Moles of an unusual shape or color. ?Changes in existing moles. ?A sore on your skin that does not heal. Tiredness (fatigue) that does not go away. Losing weight without trying. Blood in your urine or stool. Problems with coughing or breathing. These may include: ?Coughing or trouble breathing that does not go away. ?Coughing up blood. Lumps or other changes in your breasts. Vaginal bleeding, spotting, or changes in your periods. Frequent pain or cramping in your abdomen. Summary Your health care provider will recommend specific cancer screenings based on your age, medical history, and family history of cancer. Work with your health care provider to create a cancer screening schedule that protects your health. Finding cancer early improves the chances of successful treatment. It may save your life. Contact a health care provider if you have concerns about any signs or symptoms of cancer. This information is not intended to replace advice given to you by your health care provider. Make sure you discuss any questions you have with your health care provider. Document Revised: 02/08/2022 Document Reviewed: 08/08/2020 [employer] Patient Education 2022 [employer] 12/08/2023 14:37:33 Major Depressive Disorder, Adult Major Depressive Disorder, Adult Major depressive disorder (MDD) is a mental health condition. It may also be called clinical depression or unipolar depression. MDD causes symptoms of sadness, hopelessness, and loss of interest in things. These symptoms last most of the day, almost every day, for 2 weeks. MDD can also cause physical symptoms. It can interfere with relationships and with everyday activities, such as work, school,and activities that are usually pleasant. MDD may be mild, moderate, or severe. It may be single-episode MDD, which happens once, or recurrent MDD, which may occur multiple times. What are the causes? The exact cause of this condition is not known. MDD is most likely caused by a combination of things, which may include: Your personality traits. [place] or conditioned behaviors or thoughts or feelings that reinforce negativity. Any alcohol or substance misuse. Long-term (chronic) physical or mental health illness. Going through a traumatic experience or major life changes. What increases the risk? The following factors may make someone more likely to develop MDD: A family history of depression. Being a woman. Troubled family relationships. Abnormally low levels of certain brain chemicals. Traumatic or painful events in childhood, especially abuse or loss of a parent. A lot of stress from life experiences, such as poor living conditions or discrimination. Chronic physical illness or other mental health disorders. What are the signs or symptoms? The main symptoms of MDD usually include: Constant depressed or irritable mood. A loss of interest in things and activities. Other symptoms include: Sleeping or eating too much or too little. Unexplained weight gain or weight loss. Tiredness or low energy. Being agitated, restless, or weak. Feeling hopeless, worthless, or guilty. Trouble thinking clearly or making decisions. Thoughts of suicide or thoughts of harming others. Isolating oneself or avoiding other people or activities. Trouble completing tasks, work, or any normal obligations. Severe symptoms of this condition may include: Psychotic depression.This may include false beliefs, or delusions. It may also include seeing, hearing, tasting, smelling, or feeling things that are not real (hallucinations). Chronic depression or persistent depressive disorder. This is low-level depression that lasts for at least 2 years. Melancholic depression, or feeling extremely sad and hopeless. Catatonic depression, which includes trouble speaking and trouble moving. How is this diagnosed? This condition may be diagnosed based on: Your symptoms. Your medical and mental health history. You may be asked questions about your lifestyle, including any drug and alcohol use. A physical exam. Blood tests to rule out other conditions. MDD is confirmed if you have the following symptoms most of the day, nearly every day, in a 2-week period: Either a depressed mood or loss of interest. At least four other MDD symptoms. How is this treated? This condition is usually treated by mental health professionals, such as psychologists, psychiatrists, and clinical social workers. You may need more than one type of treatment. Treatment may include: Psychotherapy, also called talk therapy or counseling. Types of psychotherapy include: ?Cognitive behavioral therapy (CBT). This teaches you to recognize unhealthy feelings, thoughts, and behaviors, and replace them with positive thoughts and actions. ?Interpersonal therapy (IPT). This helps you to improve the way you communicate with others or relate to them. ?Family therapy. This treatment includes members of your family. Medicines to treat anxiety and depression. These medicines help to balance the brain chemicals thataffect your emotions. Lifestyle changes. You may be asked to: ?Limit alcohol use and avoid drug use. ?Get regular exercise. ?Get plenty of sleep. ?Make healthy eating choices. ?Spend more time outdoors. Brain stimulation. This may be done if symptoms are very severe and other treatments have not worked. Examples of this treatment are electroconvulsive therapy and transcranial magnetic stimulation. Follow these instructions at home: Activity Exercise regularly and spend time outdoors. Find activities that you enjoy doing, and make time to do them. Find healthy ways to manage stress, such as: ?Meditation or deep breathing. ?Spending time in nature. ?Journaling. Return to your normal activities as told by your health care provider. Ask your health care provider what activities are safe for you. Alcohol and drug use If you drink alcohol: ?Limit how much you use to: ?0 1 drink a day for women who are not . ?0 2 drinks a day for men. ?Be aware of how much alcohol is in your drink. In the [place] one drink equals one 12 oz bottle of beer (355 mL), one 5 oz glass of wine (148 mL), or one 1 oz glass of hard liquor (44 mL). ?Discuss your alcohol use with your health care provider. Alcohol can affect any antidepressant medicines you are taking. Discuss any drug use with your health care provider. General instructions Take ytbn-apm-qbgfqwz and prescription medicines only as told by your health care provider. Eat a healthy diet and get plenty of sleep. Consider joining a support group. Your health care provider may be able to recommend one. Keep all follow-up visits as told by your health care provider. This is important. Where to find more information National [place] on Mental Illness: www.[place].org [place] National [place] of Mental Health: www.nimh.nih.gov Contact a health care provider if: Your symptoms get worse. You develop new symptoms. Get help right away if: You self-harm. You have serious thoughts about hurting yourself or others. You hallucinate. If you ever feel like you may hurt yourself or others, or have thoughts about taking your own life,get help right away. Go to your nearest emergency department or: Call your local emergency services (719 in the [place] Call a suicide crisis helpline, such as the National Suicide Prevention Lifeline at or 703 in the [place] This is open 24 hours a day in the [place] Text the Crisis Text Line at 639452 (in the [place] Summary Major depressive disorder (MDD) is a mental health condition. MDD causes symptoms of sadness, hopelessness, and loss of interest in things. These symptoms last most of the day, almost every day, for 2 weeks. The symptoms of MDD can interfere with relationships and with everyday activities. Treatments and support are available for people who develop MDD. You may need more than one type oftreatment. Get help right away if you have serious thoughts about hurting yourself or others. This information is not intended to replace advice given to you by your health care provider. Make sure you discuss any questions you have with your health care provider. Document Revised: 04/07/2022 Document Reviewed: 08/23/2020 [employer] Patient Education 2022 [employer] 12/08/2023 14:36:27 Health Maintenance, Female Health Maintenance, Female Adopting a healthy lifestyle and getting preventive care are important in promoting health and wellness. Ask your health care provider about: The right schedule for you to have regular tests and exams. Things you can do on your own to prevent diseases and keep yourself healthy. What should I know about diet, weight, and exercise? Eat a healthy diet Eat a diet that includes plenty of vegetables, fruits, low-fat dairy products, and lean protein. Do not eat a lot of foods that are high in solid fats, added sugars, or sodium. Maintain a healthy weight Body mass index (BMI) is used to identify weight problems. It estimates body fat based on height and weight. Your health care provider can help determine your BMI and help you achieve or maintain a healthy weight. Get regular exercise Get regular exercise. This is one of the most important things you can do for your health. Most adults should: Exercise for at least 150 minutes each week. The exercise should increase your heart rate and make you sweat (moderate-intensity exercise). Do strengthening exercises at least twice a week. This is in addition to the moderate-intensity exercise. Spend less time sitting. Even light physical activity can be beneficial. Watch cholesterol and blood lipids Have your blood tested for lipids and cholesterol at 20 years of age, then have this test every 5 years. Have your cholesterol levels checked more often if: Your lipid or cholesterol levels are high. You are older than 40 years of age. You are at high risk for heart disease. What should I know about cancer screening? Depending on your health history and family history, you may need to have cancer screening at various ages. This may include screening for: Breast cancer. Cervical cancer. Colorectal cancer. Skin cancer. Lung cancer. What should I know about heart disease, diabetes, and high blood pressure? Blood pressure and heart disease High blood pressure causes heart disease and increases the risk of stroke. This is more likely to develop in people who have high blood pressure readings or are overweight. Have your blood pressure checked: ?Every 3 5 years if you are 18 39 years of age. ?Every year if you are 40 years old or older. Diabetes Have regular diabetes screenings. This checks your fasting blood sugar level. Have the screening done: Once every three years after age 40 if you are at a normal weight and have a low risk for diabetes. More often and at a younger age if you are overweight or have a high risk for diabetes. What should I know about preventing infection? Hepatitis B If you have a higher risk for hepatitis B, you should be screened for this virus. Talk with your health care provider to find out if you are at risk for hepatitis B infection. Hepatitis C Testing is recommended for: Everyone born from 1945 through 1965. Anyone with known risk factors for hepatitis C. Sexually transmitted infections (STIs) Get screened for STIs, including gonorrhea and chlamydia, if: ?You are sexually active and are younger than 24 years of age. ?You are older than 24 years of age and your health care provider tells you that you are at risk for this type of infection. ?Your sexual activity has changed since you were last screened, and you are at increased risk for chlamydia or gonorrhea. Ask your health care provider if you are at risk. Ask your health care provider about whether you are at high risk for HIV. Your health care providermay recommend a prescription medicine to help prevent HIV infection. If you choose to take medicineto prevent HIV, you should first get tested for HIV. You should then be tested every 3 months for as long as you are taking the medicine. If you are about to stop having your period (premenopausal) and you may become , seek counseling before you get . Take 400 to 800 micrograms (mcg) of folic acid every day if you become . Ask for control (contraception) if you want to prevent . Osteoporosis and menopause Osteoporosis is a disease in which the bones lose minerals and strength with aging. This can resultin bone fractures. If you are 65 years old or older, or if you are at risk for osteoporosis and fractures, ask your health care provider if you should: Be screened for bone loss. Take a calcium or vitamin D supplement to lower your risk of fractures. Be given hormone replacement therapy (HRT) to treat symptoms of menopause. Follow these instructions at home: Alcohol use Do not drink alcohol if: ?Your health care provider tells you not to drink. ?You are , may be , or are planning to become . If you drink alcohol: ?Limit how much you have to: ?0 1 drink a day. ?Know how much alcohol is in your drink. In the [place] one drink equals one 12 oz bottle of beer (355 mL), one 5 oz glass of wine (148 mL), or one 1 oz glass of hard liquor (44 mL). Lifestyle Do not use any products that contain nicotine or tobacco. These products include cigarettes, chewing tobacco, and vaping devices, such as e-cigarettes. If you need help quitting, ask your health careprovider. Do not use street drugs. Do not share needles. Ask your health care provider for help if you need support or information about quitting drugs. General instructions Schedule regular health, dental, and eye exams. Stay current with your vaccines. Tell your health care provider if: ?You often feel depressed. ?You have ever been abused or do not feel safe at home. Summary Adopting a healthy lifestyle and getting preventive care are important in promoting health and wellness. Follow your health care provider's instructions about healthy diet, exercising, and getting tested or screened for diseases. Follow your health care provider's instructions on monitoring your cholesterol and blood pressure. This information is not intended to replace advice given to you by your health care provider. Make sure you discuss any questions you have with your health care provider. Document Revised: 02/01/2022 Document Reviewed: 02/01/2022 [employer] Patient Education 2022 [employer] 12/08/2023 14:36:25 Anemia Anemia Anemia is a condition in which there are not enough red blood cells or hemoglobin in the blood. Hemoglobin is a substance in red blood cells that carries oxygen. When you do not have enough red blood cells or hemoglobin (are anemic), your body cannot get enoughoxygen, and your organs may not work properly. As a result, you may feel very tired or have other problems. What are the causes? Common causes of anemia include: Excessive bleeding. Anemia can be caused by excessive bleeding inside or outside the body, including bleeding from the intestines or from heavy menstrual periods in females. Poor nutrition. Long-lasting (chronic) kidney, thyroid, and liver disease. Bone marrow disorders, spleen problems, and blood disorders. Cancer and treatments for cancer. Human immunodeficiency virus (HIV) and acquired immunodeficiency syndrome (AIDS). Infections, medicines, and autoimmune disorders that destroy red blood cells. What are the signs or symptoms? Symptoms of this condition include: Minor weakness. Dizziness. Headache, or difficulties concentrating and sleeping. Heartbeats that feel irregular or faster than normal (palpitations). Shortness of breath, especially with exercise. Pale skin, lips, and nails, or cold hands and feet. Upset stomach (indigestion) and nausea. Symptoms may occur suddenly or develop slowly. If your anemia is mild, you may not have symptoms. How is this diagnosed? This condition is diagnosed based on blood tests, your medical history, and a physical exam. In some cases, a test may be needed in which cells are removed from the soft tissue inside of a bone and looked at under a microscope (bone marrow biopsy). Your health care provider may also check your stool (feces) for blood and may do more testing to look for the cause of your bleeding. Other tests may include: Imaging tests, such as a CT scan or MRI. A procedure to see inside your esophagus and stomach (endoscopy). The esophagus is the part of the body that moves food from your mouth to your stomach. A procedure to see inside your colon and rectum (colonoscopy). How is this treated? Treatment for this condition depends on the cause. If you continue to lose a lot of blood, you may need to be treated at a hospital. Treatment may include: Taking supplements of iron, vitamin B12, or folic acid. Taking a hormone medicine (erythropoietin) that can help to stimulate red blood cell growth. Receiving donated blood through an IV (blood transfusion). This may be needed if you lose a lot of blood. Making changes to your diet. Having surgery to remove your spleen. Follow these instructions at home: Take suoc-nht-akmdtqf and prescription medicines only as told by your health care provider. Take supplements only as told by your health care provider. Follow any diet instructions that you were given by your health care provider. Keep all follow-up visits. Your health care provider will want to recheck your blood tests. Contact a health care provider if: You develop new bleeding anywhere in the body. You are very weak. Get help right away if: You are short of breath. You have pain in your abdomen or chest. You are dizzy or feel faint. You have trouble concentrating. You have bloody stools, black stools, or tarry stools. You vomit repeatedly or you vomit up blood. These symptoms may be an emergency. Get help right away. Call 911. Do not wait to see if the symptoms will go away. Do not drive yourself to the hospital. Summary Anemia is a condition in which you do not have enough red blood cells or enough of a substance in your red blood cells that carries oxygen. Symptoms may occur suddenly or develop slowly. If your anemia is mild, you may not have symptoms. This condition is diagnosed with blood tests, a medical history, and a physical exam. Other tests may be needed. Treatment for this condition depends on the cause of the anemia. This information is not intended to replace advice given to you by your health care provider. Make sure you discuss any questions you have with your health care provider. Document Revised: 12/06/2022 Document Reviewed: 12/06/2022 [employer] Patient Education 2022 [employer] [facility] 03-14-2024 Evaluation + Plan note Future Scheduled Tests Laboratory* U Protein/Creat Ratio 12/08/23 * HgbA1c 12/08/23 * Albumin Level Urine 12/08/23 * TIBC Calculated 12/08/23 * Urinalysis 12/08/23 * Vitamin D 25 Hydroxy 12/08/23 * Ferritin 12/08/23 * Iron Level 12/08/23 * Lipid Panel 12/08/23 * Reticulocyte Count 12/08/23 * Thyroid Stimulating Hormone 12/08/23 * Vitamin B12 Level 12/08/23 Radiology* MA Mamm Screen w/CAD if perf and 3D Tye 12/08/23 [facility]03-02-2024 Hospital Discharge instructions Patient Education 11/26/2023 17:51:08 Bacterial Conjunctivitis, Adult, Wvlz-fe-Elrf Bacterial Conjunctivitis, Adult Bacterial conjunctivitis is an infection of your conjunctiva. This is the clear membrane that covers the white part of your eye and the inner part of your eyelid. This infection can make your eye: Red or pink. Itchy or irritated. This condition spreads easily from person to person (is contagious) and from one eye to the other eye. What are the causes? This condition is caused by germs (bacteria). You may get the infection if you come into close contact with: A person who has the infection. Items that have germs on them (are contaminated), such as face towels, contact lens solution, or eye makeup. What increases the risk? You are more likely to get this condition if: You have contact with people who have the infection. You wear contact lenses. You have a sinus infection. You have had a recent eye injury or surgery. You have a weak body defense system (immune system). You have dry eyes. What are the signs or symptoms? Thick, yellowish discharge from the eye. Tearing or watery eyes. Itchy eyes. Burning feeling in your eyes. Eye redness. Swollen eyelids. Blurred vision. How is this treated? Antibiotic eye drops or ointment. Antibiotic medicine taken by mouth. This is used for infections that do not get better with drops or ointment or that last more than 10 days. Cool, wet cloths placed on the eyes. Artificial tears used 2 6 times a day. Follow these instructions at home: Medicines Take or apply your antibiotic medicine as told by your doctor. Do not stop using it even if you start to feel better. Take or apply farr-huz-ucueuwv and prescription medicines only as told by your doctor. Do not touch your eyelid with the eye-drop bottle or the ointment tube. Managing discomfort Wipe any fluid from your eye with a warm, wet washcloth or a cotton ball. Place a clean, cool, wet cloth on your eye. Do this for 10 20 minutes, 3 4 times a day. General instructions Do not wear contacts until the infection is gone. Wear glasses until your doctor says it is okay towear contacts again. Do not wear eye makeup until the infection is gone. Throw away old eye makeup. Change or wash your pillowcase every day. Do not share towels or washcloths. Wash your hands often with soap and water for at least 20 seconds and especially before touching your face or eyes. Use paper towels to dry your hands. Do not touch or rub your eyes. Do not drive or use heavy machinery if your vision is blurred. Contact a doctor if: You have a fever. You do not get better after 10 days. Get help right away if: You have a fever and your symptoms get worse all of a sudden. You have very bad pain when you move your eye. Your face: ?Hurts. ?Is red. ?Is swollen. You have sudden loss of vision. Summary Bacterial conjunctivitis is an infection of your conjunctiva. This infection spreads easily from person to person. Wash your hands often with soap and water for at least 20 seconds and especially before touching your face or eyes. Use paper towels to dry your hands. Take or apply your antibiotic medicine as told by your doctor. Contact a doctor if you have a fever or you do not get better after 10 days. This information is not intended to replace advice given to you by your health care provider. Make sure you discuss any questions you have with your health care provider. Document Revised: 12/23/2021 Document Reviewed: 12/23/2021 [employer] Patient Education 2022 [employer] 11/26/2023 17:51:08 Otitis Media, Adult Otitis Media, Adult Otitis media occurs when there is inflammation and fluid in the middle ear with signs and symptoms of an acute infection. The middle ear is a part of the ear that contains bones for hearing as well as air that helps send sounds to the brain. When infected fluid builds up in this space, it causes pressure and can lead to an ear infection. The eustachian tube connects the middle ear to the back of the nose (nasopharynx) and normally allows air into the middle ear. If the eustachian tube becomes blocked, fluid can build up and become infected. What are the causes? This condition is caused by a blockage in the eustachian tube. This can be caused by mucus or by swelling of the tube. Problems that can cause a blockage include: A cold or other upper respiratory infection. Allergies. An irritant, such as tobacco smoke. Enlarged adenoids. The adenoids are areas of soft tissue located high in the back of the throat, behind the nose and the roof of the mouth. They are part of the body's defense system (immune system). A mass in the nasopharynx. Damage to the ear caused by pressure changes (barotrauma). What increases the risk? You are more likely to develop this condition if you: Smoke or are exposed to tobacco smoke. Have an opening in the roof of your mouth (cleft palate). Have gastroesophageal reflux. Have an immune system disorder. What are the signs or symptoms? Symptoms of this condition include: Ear pain. Fever. Decreased hearing. Tiredness (lethargy). Fluid leaking from the ear, if the eardrum is ruptured or has burst. Ringing in the ear. How is this diagnosed? This condition is diagnosed with a physical exam. During the exam, your health care provider will use an instrument called an otoscope to look in your ear and check for redness, swelling, and fluid. He or she will also ask about your symptoms. Your health care provider may also order tests, such as: A pneumatic otoscopy. This is a test to check the movement of the eardrum. It is done by squeezing a small amount of air into the ear. A tympanogram. This is a test that shows how well the eardrum moves in response to air pressure in the ear canal. It provides a graph for your health care provider to review. How is this treated? This condition can go away on its own within 3 5 days. But if the condition is caused by a bacterial infection and does not go away on its own, or if it keeps coming back, your health care provider may: Prescribe antibiotic medicine to treat the infection. Prescribe or recommend medicines to control pain. Follow these instructions at home: Take eesu-gjk-vweqhci and prescription medicines only as told by your health care provider. If you were prescribed an antibiotic medicine, take it as told by your health care provider. Do notstop taking the antibiotic even if you start to feel better. Keep all follow-up visits. This is important. Contact a health care provider if: You have bleeding from your nose. There is a lump on your neck. You are not feeling better in 5 days. You feel worse instead of better. Get help right away if: You have severe pain that is not controlled with medicine. You have swelling, redness, or pain around your ear. You have stiffness in your neck. A part of your face is not moving (paralyzed). The bone behind your ear (mastoid bone) is tender when you touch it. You develop a severe headache. Summary Otitis media is redness, soreness, and swelling of the middle ear, usually resulting in pain and decreased hearing. This condition can go away on its own within 3 5 days. If the problem does not go away in 3 5 days, your health care provider may give you medicines to treat the infection. If you were prescribed an antibiotic medicine, take it as told by your health care provider. Follow all instructions that were given to you by your health care provider. This information is not intended to replace advice given to you by your health care provider. Make sure you discuss any questions you have with your health care provider. Document Revised: 12/21/2021 Document Reviewed: 12/21/2021 [employer] Patient Education 2022 [employer] Follow Up Care 11/26/2023 17:19:06 With:Rangel Aissatou Address: [address] [place] [address] When:11/29/2023 17:36:22 Comments:Follow-up with your primary care provider in 3 to 5 days. If symptoms worsen, do not improve, or new symptoms arise please report back to emergency department for further evaluation. [facility]03-02-2024 Evaluation + Plan noteExtracted from: Title:ED Note Author:Gustavo BRIONES, Wes Alvarez te:11/26/23 Conjunctivitis (H10.9: Unspe cified conjunctivitis) Otitis media, left (H66.92: Otitis media, unspecified, left ear) Orders: amoxicillin-clavulanate, 1 tab(s), Oral, BID for 10 day(s), 20 tab(s), Refill(s) 0, [facility] #[id number], 170, cm, 11/26/23 17:28:00 EST, Height/Length Dosing, 91.8, kg, 11/26/23 17:28:00 EST, Weight Dosing amoxicillin-clavulanate, 1 tab(s), Tab, Oral, Once, Stop date 11/26/23 17:34:00 EST, STAT, Start date 11/26/23 17:34:00 EST brompheniramine/dextromethorphan/PSE, 5 mL, Oral, QID for cold symptoms, 200 mL, Refill(s) 0, [facility] #[id number], 170, cm, 11/26/23 17:28:00 EST, Height/Length Dosing, 91.8, kg, 11/26/23 17:28:00 EST, Weight Dosing methylPREDNISolone, 4 mg = 1 tab(s), Tab, Oral, Once, Stop date 11/26/23 17:34:00 EST, STAT, Start date 11/26/23 17:34:00 EST, 11/26/23 17:34:00 EST polymyxin B-trimethoprim ophthalmic, 1 drop(s), Soln-Opth, OPTH, Once, Stop date 11/26/23 17:34:00 EST, STAT, Start date 11/26/23 17:34:00 EST polymyxin B-trimethoprim ophthalmic, 1 drop(s), OPTH, q3hr for 7 day(s), 10 mL, Refill(s) 0, [facility] #[id number], 170, cm, 11/26/23 17:28:00 EST, Height/Length Dosing, 91.8, kg, 11/26/23 17:28:00 EST, Weight Dosing Future Appointments Appointment Date:12/05/2023 10:20:00 AM Scheduled Provider:Brigitte Carpenter Location[place] Appointment Type:[facility]02-19-[facility]24 Hospital Discharge instructions Patient Education 11/14/2023 14:08:04 Viral Respiratory Infection, Ifsz-Tk-Savj Viral Respiratory Infection A viral respiratory infection is an illness that affects parts of the body that are used for breathing. These include the lungs, nose, and throat. It is caused by a germ called a virus. Some examples of this kind of infection are: A cold. The flu (influenza). A respiratory syncytial virus (RSV) infection. What are the causes? This condition is caused by a virus. It spreads from person to person. You can get the virus if: You breathe in droplets from someone who is sick. You come in contact with people who are sick. You touch mucus or other fluid from a person who is sick. What are the signs or symptoms? Symptoms of this condition include: A stuffy or runny nose. A sore throat. A cough. Shortness of breath. Trouble breathing. Yellow or green fluid in the nose. Other symptoms may include: A fever. Sweating or chills. Tiredness (fatigue). Achy muscles. A headache. How is this treated? This condition may be treated with: Medicines that treat viruses. Medicines that make it easy to breathe. Medicines that are sprayed into the nose. Acetaminophen or NSAIDs, such as ibuprofen, to treat fever. Follow these instructions at home: Managing pain and congestion Take yyky-zfm-jxvdfoz and prescription medicines only as told by your doctor. If you have a sore throat, gargle with salt water. Do this 3 4 times a day or as needed. ?To make salt water, dissolve 1 tsp (3 6 g) of salt in 1 cup (237 mL) of warm water. Make sure thatall the salt dissolves. Use nose drops made from salt water. This helps with stuffiness (congestion). It also helps soften the skin around your nose. Take 2 tsp (10 mL) of honey at bedtime to lessen coughing at night. ?Do not give honey to children who are younger than 1 year old. Drink enough fluid to keep your pee (urine) pale yellow. General instructions Rest as much as possible. Do not drink alcohol. Do not smoke or use any products that contain nicotine or tobacco. If you need help quitting, ask your doctor. Keep all follow-up visits. How is this prevented? Get a flu shot every year. Ask your doctor when you should get your flu shot. Do not let other people get your germs. If you are sick: ?Wash your hands with soap and water often. Wash your hands after you cough or sneeze. Wash hands for at least 20 seconds. If you cannot use soap and water, use hand power tool repairer. ?Cover your mouth when you cough. Cover your nose and mouth when you sneeze. ?Do not share cups or eating utensils. ?Clean commonly used objects often. Clean commonly touched surfaces. ?Stay home from work or school. Avoid contact with people who are sick during cold and flu season. This is in fall and winter. Get help if: Your symptoms last for 10 days or longer. Your symptoms get worse over time. You have very bad pain in your face or forehead. Parts of your jaw or neck get very swollen. You have shortness of breath. Get help right away if: You feel pain or pressure in your chest. You have trouble breathing. You faint or feel like you will faint. You keep vomiting and it gets worse. You feel confused. These symptoms may be an emergency. Get help right away. Call your local emergency services (911 int [place] Do not wait to see if the symptoms will go away. Do not drive yourself to the hospital. Summary A viral respiratory infection is an illness that affects parts of the body that are used for breathing. Examples of this illness include a cold, the flu, and a respiratory syncytial virus (RSV) infection. The infection can cause a runny nose, cough, sore throat, and fever. Follow what your doctor tells you about taking medicines, drinking lots of fluid, washing your hands, resting at home, and avoiding people who are sick. This information is not intended to replace advice given to you by your health care provider. Make sure you discuss any questions you have with your health care provider. Document Revised: 12/17/2021 Document Reviewed: 12/17/2021 [employer] Patient Education 2022 [employer] Follow Up Care 11/14/2023 12:23:58 With:Rangel Reyez DO, FAM, PED Address: [address] [place] [address] When:11/17/2023 [facility]01-08-2024 Hospital Discharge instructions Patient Education 10/03/2023 16:01:31 Hip Pain Hip Pain The hip is the joint between the upper legs and the lower pelvis. The bones, cartilage, tendons, and muscles of your hip joint support your body and allow you to move around. Hip pain can range from a minor ache to severe pain in one or both of your hips. The pain may be felt on the inside of the hip joint near the groin, or on the outside near the buttocks and upper thigh. You may also have swelling or stiffness in your hip area. Follow these instructions at home: Managing pain, stiffness, and swelling If directed, put ice on the painful area. To do this: ?Put ice in a plastic bag. ?Place a towel between your skin and the bag. ?Leave the ice on for 20 minutes, 2 3 times a day. If directed, apply heat to the affected area as often as told by your health care provider. Use theheat source that your health care provider recommends, such as a moist heat pack or a heating pad. ?Place a towel between your skin and the heat source. ?Leave the heat on for 20 30 minutes. ?Remove the heat if your skin turns bright red. This is especially important if you are unable to feel pain, heat, or cold. You may have a greater risk of getting burned. Activity Do exercises as told by your health care provider. Avoid activities that cause pain. General instructions Take ortj-dmc-eaourkn and prescription medicines only as told by your health care provider. Keep a journal of your symptoms. Write down: ?How often you have hip pain. ?The location of your pain. ?What the pain feels like. ?What makes the pain worse. Sleep with a pillow between your legs on your most comfortable side. Keep all follow-up visits as told by your health care provider. This is important. Contact a health care provider if: You cannot put weight on your leg. Your pain or swelling continues or gets worse after one week. It gets harder to walk. You have a fever. Get help right away if: You fall. You have a sudden increase in pain and swelling in your hip. Your hip is red or swollen or very tender to touch. Summary Hip pain can range from a minor ache to severe pain in one or both of your hips. The pain may be felt on the inside of the hip joint near the groin, or on the outside near the buttocks and upper thigh. Avoid activities that cause pain. Write down how often you have hip pain, the location of the pain, what makes it worse, and what it feels like. This information is not intended to replace advice given to you by your health care provider. Make sure you discuss any questions you have with your health care provider. Document Revised: 01/28/2020 Document Reviewed: 01/28/2020 [employer] Patient Education 2022 [employer] Follow Up Care 10/03/2023 14:03:38 With:Rangel Reyez Address: [address] [place] [address] When:10/06/2023 15:51:57 [facility]01-07-2024 Evaluation + Plan noteExtracted from: Title:ED Note Author:Ralph Platt DO Date :10/02/23 Sciatica (M54.30: Sciatica, unspecified side) Orders: ketorolac, 30 mg = 2 mL, Injection, IntraMuscular, Once, Stop date 10/02/23 2:00:00 EST, STAT, Start date 10/02/23 2:00:00 EST, 10/02/23 2:00:00 EST naproxen, 500 mg = 1 tab(s), Oral, BID, X 7 day(s), # 14 tab(s), Refills(s) 0, Pharmacy: [facility] #[id number], 170, cm, 10/02/23 1:51:00 EST, Height/Length Dosing, 91.7, kg, 10/02/23 1:51:00 EST, Weight Dosing XR Hip 2-3 Views Right + Pelvis Future Scheduled Tests Laboratory* HgbA1c 10/15/22 * Erythropoietin Level 10/15/22 * TIBC Calculated 10/15/22 * CBC w/ Auto Diff 10/15/22 * Comprehensive Metabolic Panel 10/15/22 * Ferritin 10/15/22 * Folate Level 10/15/22 * Iron Level 10/15/22 * Lipid Panel 10/15/22 * Reticulocyte Count 10/15/22 * Transferrin 10/15/22 * Vitamin B12 Level 10/15/22 [facility]01-07-2024 Hospital Discharge instructions Patient Education 10/02/2023 02:37:29 Sciatica Sciatica Sciatica is pain, numbness, weakness, or tingling along the path of the sciatic nerve. The sciatic nerve starts in the lower back and runs down the back of each leg. The nerve controls the muscles inthe lower leg and in the back of the knee. It also provides feeling (sensation) to the back of the thigh, the lower leg, and the sole of the foot. Sciatica is a symptom of another medical condition that pinches or puts pressure on the sciatic nerve. Sciatica most often only affects one side of the body. Sciatica usually goes away on its own or with treatment. In some cases, sciatica may come back (recur). What are the causes? This condition is caused by pressure on the sciatic nerve or pinching of the nerve. This may be theresult of: A disk in between the bones of the spine bulging out too far (herniated disk). Age-related changes in the spinal disks. A pain disorder that affects a muscle in the buttock. Extra bone growth near the sciatic nerve. A break (fracture) of the pelvis. . Tumor. This is rare. What increases the risk? The following factors may make you more likely to develop this condition: Playing sports that place pressure or stress on the spine. Having poor strength and flexibility. A history of back injury or surgery. Sitting for long periods of time. Doing activities that involve repetitive bending or lifting. Obesity. What are the signs or symptoms? Symptoms can vary from mild to very severe. They may include: Any of the following problems in the lower back, leg, hip, or buttock: ?Mild tingling, numbness, or dull aches. ?Burning sensations. ?Sharp pains. Numbness in the back of the calf or the sole of the foot. Leg weakness. Severe back pain that makes movement difficult. Symptoms may get worse when you cough, sneeze, or laugh, or when you sit or stand for long periods of time. How is this diagnosed? This condition may be diagnosed based on: Your symptoms and medical history. A physical exam. Blood tests. Imaging tests, such as: ?X-rays. ?An MRI. ?A CT scan. How is this treated? In many cases, this condition improves on its own without treatment. However, treatment may include: Reducing or modifying physical activity. Exercising, including strengthening and stretching. Icing and applying heat to the affected area. Medicines that help to: ?Relieve pain and swelling. ?Relax your muscles. Injections of medicines that help to relieve pain and inflammation (steroids) around the sciatic nerve. Surgery. Follow these instructions at home: Medicines Take xbjh-bzk-hhvphuh and prescription medicines only as told by your health care provider. Ask your health care provider if the medicine prescribed to you requires you to avoid driving or using heavy machinery. Managing pain If directed, put ice on the affected area. To do this: ?Put ice in a plastic bag. ?Place a towel between your skin and the bag. ?Leave the ice on for 20 minutes, 2 3 times a day. ?If your skin turns bright red, remove the ice right away to prevent skin damage. The risk of skin damage is higher if you cannot feel pain, heat, or cold. If directed, apply heat to the affected area as often as told by your health care provider. Use theheat source that your health care provider recommends, such as a moist heat pack or a heating pad. ?Place a towel between your skin and the heat source. ?Leave the heat on for 20 30 minutes. ?If your skin turns bright red, remove the heat right away to prevent restrepo. The risk of restrepo is higher if you cannot feel pain, heat, or cold. Activity Return to your normal activities as told by your health care provider. Ask your health care provider what activities are safe for you. Avoid activities that make your symptoms worse. Take brief periods of rest throughout the day. ?When you rest for longer periods, mix in some mild activity or stretching between periods of rest.This will help to prevent stiffness and pain. ?Avoid sitting for long periods of time without moving. Get up and move around at least one time each hour. Exercise and stretch regularly as told by your health care provider. Do not lift anything that is heavier than 10 lb (4.5 kg) until your health care provider says that it is safe. When you do not have symptoms, you should still avoid heavy lifting, especially repetitive heavy lifting. When you lift objects, always use proper lifting technique, which includes: ?Bending your knees. ?Keeping the load close to your body. ?Avoiding twisting. General instructions Maintain a healthy weight. Excess weight puts extra stress on your back. Wear supportive, comfortable shoes. Avoid wearing high heels. Avoid sleeping on a mattress that is too soft or too hard. A mattress that is firm enough to support your back when you sleep may help to reduce your pain. Contact a health care provider if: Your pain is not controlled by medicine. Your pain does not improve or gets worse. Your pain lasts longer than 4 weeks. You have unexplained weight loss. Get help right away if: You are not able to control when you urinate or have bowel movements (incontinence). You have: ?Weakness in your lower back, pelvis, buttocks, or legs that gets worse. ?Redness or swelling of your back. ?A burning sensation when you urinate. Summary Sciatica is pain, numbness, weakness, or tingling along the path of the sciatic nerve, which may include the lower back, legs, hips, and buttocks. This condition is caused by pressure on the sciatic nerve or pinching of the nerve. Treatment often includes rest, exercise, medicines, and applying ice or heat. This information is not intended to replace advice given to you by your health care provider. Make sure you discuss any questions you have with your health care provider. Document Revised: 12/20/2022 Document Reviewed: 12/20/2022 [employer] Patient Education 2022 [employer] Follow Up Care 10/02/2023 01:45:51 With:Rangel Reyez Address: [address] [place] [address] When:Within 3 Day(s) [facility]06-28-2023 Hospital Discharge instructions Patient Education 03/22/2023 22:49:52 Acute Knee Pain, Adult, Mild-lx-Hlrq Acute Knee Pain, Adult Many things can cause knee pain. Sometimes, knee pain is sudden (acute) and may be caused by damage, swelling, or irritation of the muscles and tissues that support your knee. The pain often goes away on its own with time and rest. If the pain does not go away, tests may be done to find out what is causing the pain. Follow these instructions at home: If you have a knee sleeve or brace: Wear the knee sleeve or brace as told by your doctor. Take it off only as told by your doctor. Loosen it if your toes: ?Tingle. ?Become numb. ?Turn cold and blue. Keep it clean. If the knee sleeve or brace is not waterproof: ?Do not let it get wet. ?Cover it with a watertight covering when you take a bath or shower. Activity Rest your knee. Do not do things that cause pain or make pain worse. Avoid activities where both feet leave the ground at the same time (high-impact activities). Examples are running, jumping rope, and doing jumping jacks. Work with a physical therapist to make a safe exercise program, as told by your doctor. Managing pain, stiffness, and swelling If told, put ice on the knee. To do this: ?If you have a removable knee sleeve or brace, take it off as told by your doctor. ?Put ice in a plastic bag. ?Place a towel between your skin and the bag. ?Leave the ice on for 20 minutes, 2 3 times a day. ?Take off the ice if your skin turns bright red. This is very important. If you cannot feel pain, heat, or cold, you have a greater risk of damage to the area. If told, use an elastic bandage to put pressure (compression) on your injured knee. Raise your knee above the level of your heart while you are sitting or lying down. Sleep with a pillow under your knee. General instructions Take jdxs-irp-mrzlqdb and prescription medicines only as told by your doctor. Do not smoke or use any products that contain nicotine or tobacco. If you need help quitting, ask your doctor. If you are overweight, work with your doctor and a food expert (dietitian) to set goals to lose weight. Being overweight can make your knee hurt more. Watch for any changes in your symptoms. Keep all follow-up visits. Contact a doctor if: The knee pain does not stop. The knee pain changes or gets worse. You have a fever along with knee pain. Your knee is red or feels warm when you touch it. Your knee gives out or locks up. Get help right away if: Your knee swells, and the swelling gets worse. You cannot move your knee. You have very bad knee pain that does not get better with pain medicine. Summary Many things can cause knee pain. The pain often goes away on its own with time and rest. Your doctor may do tests to find out the cause of the pain. Watch for any changes in your symptoms. Relieve your pain with rest, medicines, light activity, anduse of ice. Get help right away if you cannot move your knee or your knee pain is very bad. This information is not intended to replace advice given to you by your health care provider. Make sure you discuss any questions you have with your health care provider. Document Revised: 02/25/2021 Document Reviewed: 02/25/2021 [employer] Patient Education 2022 [employer] Follow Up Care 03/22/2023 21:51:02 With:Rangel Reyez Address: [address] [place] [address]- When:03/25/2023 Comments:Can use the naproxen every 12 hours as needed for pain. Please follow- up with your primary care doctor in the next 2 to 3 days. Please return to the ED for any new or worsening symptoms. [facility]06-27-2023 Evaluation + Plan noteExtracted from: Title:ED Note Author:Micah Greer DO Date :03/22/23 Acute knee pain (M25.569: Pa in in unspecified knee) Contusion of knee (S80.00XA: Contusion of unspecified knee, initial encounter) Orders: naproxen, 500 mg = 2 tab(s), Tab, Oral, Once, Stop date 03/22/23 22:05:00 EDT, STAT, Start date 03/22/23 22:05:00 EDT, 03/22/23 22:05:00 EDT naproxen, 500 mg = 1 tab(s), Oral, BID, PRN for pain, # 20 tab(s), Refills(s) 0, Pharmacy: [facility] #[id number], 168, cm, 03/22/23 21:56:00 EDT, Height/Length Dosing, 92.4, kg, 03/22/23 21:56:00 EDT, Weight Dosing Nate Wrap XR Knee Complete 4+ Views Right Future Scheduled Tests Laboratory* HgbA1c 10/15/22 * Erythropoietin Level 10/15/22 * TIBC Calculated 10/15/22 * CBC w/ Auto Diff 10/15/22 * Comprehensive Metabolic Panel 10/15/22 * Ferritin 10/15/22 * Folate Level 10/15/22 * Iron Level 10/15/22 * Lipid Panel 10/15/22 * Reticulocyte Count 10/15/22 * Transferrin 10/15/22 * Vitamin B12 Level 10/15/22 [facility]04-13-2023 Hospital Discharge instructions Patient Education 01/06/2023 14:45:27 Dizziness Dizziness Dizziness is a common problem. It is a feeling of unsteadiness or light- headedness. You may feel like you are about to faint. Dizziness can lead to injury if you stumble or fall. Anyone can become dizzy, but dizziness is more common in older adults. This condition can be caused by a number of things, including medicines, dehydration, or illness. Follow these instructions at home: Eating and drinking Drink enough fluid to keep your urine clear or pale yellow. This helps to keep you from becoming dehydrated. Try to drink more clear fluids, such as water. Do not drink alcohol. Limit your caffeine intake if told to do so by your health care provider. Check ingredients and nutrition facts to see if a food or beverage contains caffeine. Limit your salt (sodium) intake if told to do so by your health care provider. Check ingredients and nutrition facts to see if a food or beverage contains sodium. Activity Avoid making quick movements. ?Rise slowly from chairs and steady yourself until you feel okay. ?In the morning, first sit up on the side of the bed. When you feel okay, stand slowly while you hold onto something until you know that your balance is fine. If you need to brake lining curer one place for a long time, move your legs often. Tighten and relax the muscles in your legs while you are standing. Do not drive or use heavy machinery if you feel dizzy. Avoid bending down if you feel dizzy. Place items in your home so that they are easy for you to reach without leaning over. Lifestyle Do not use any products that contain nicotine or tobacco, such as cigarettes and e-cigarettes. If you need help quitting, ask your health care provider. Try to reduce your stress level by using methods such as yoga or meditation. Talk with your health care provider if you need help to manage your stress. General instructions Watch your dizziness for any changes. Take byll-nwv-hkhriah and prescription medicines only as told by your health care provider. Talk with your health care provider if you think that your dizziness is caused by a medicine that you are taking. Tell a friend or a family member that you are feeling dizzy. If he or she notices any changes in your behavior, have this person call your health care provider. Keep all follow-up visits as told by your health care provider. This is important. Contact a health care provider if: Your dizziness does not go away. Your dizziness or light-headedness gets worse. You feel nauseous. You have reduced hearing. You have new symptoms. You are unsteady on your feet or you feel like the room is spinning. Get help right away if: You vomit or have diarrhea and are unable to eat or drink anything. You have problems talking, walking, swallowing, or using your arms, hands, or legs. You feel generally weak. You are not thinking clearly or you have trouble forming sentences. It may take a friend or family member to notice this. You have chest pain, abdominal pain, shortness of breath, or sweating. Your vision changes. You have any bleeding. You have a severe headache. You have neck pain or a stiff neck. You have a fever. These symptoms may represent a serious problem that is an emergency. Do not wait to see if the symptoms will go away. Get medical help right away. Call your local emergency services (911 in the [place] Do not drive yourself to the hospital. Summary Dizziness is a feeling of unsteadiness or light-headedness. This condition can be caused by a number of things, including medicines, dehydration, or illness. Anyone can become dizzy, but dizziness is more common in older adults. Drink enough fluid to keep your urine clear or pale yellow. Do not drink alcohol. Avoid making quick movements if you feel dizzy. Monitor your dizziness for any changes. This information is not intended to replace advice given to you by your health care provider. Make sure you discuss any questions you have with your health care provider. Document Released: 03/08/2002 Document Revised: 09/15/2018 Document Reviewed: 10/15/2017 [employer] Patient Education 2020 [employer]+. Follow Up Care 01/06/2023 12:05:56 With:Malik Aguillon Address: [address] [place] [address]- Business (1) When:01/09/2023 14:21:54 With:Rangel Reyez Address: [address] [facility] [place] [address]- When:01/09/2023 14:21:51 [facility]04-13-2023 Evaluation + Plan noteExtracted from: Title:ED Note Author:Bhupendra Dale PA-C te:01/06/23 Dizziness (R42: Dizziness an d giddiness) Orders: meclizine, 25 mg = 2 tab(s), Tab, Oral, Once, Stop date 01/06/23 12:28:00 EDT, STAT, Start date 01/06/23 12:28:00 EDT, 01/06/23 12:28:00 EDT meclizine, 25 mg = 1 tab(s), Oral, TID, PRN for dizziness, # 20 tab(s), Refills(s) 0, Pharmacy: [facility] #[id number], 168, cm, 01/06/23 12:16:00 EDT, Height/Length Dosing, 92, kg, 01/06/23 12:16:00 EDT, Weight Dosing Automated Diff Basic Metabolic Panel CBC w/ Auto Diff ED Cardiac Monitoring eGFR Extra SST Tube Oxygen Saturation Oxygen Therapy PT & PTT Saline Lock Insert Troponin 0 Hr. Troponin 3 Hr. Troponin 6 Hr. Troponin 9 Hr. XR Chest Single View Future Scheduled Tests Laboratory* HgbA1c 10/15/22 * Erythropoietin Level 10/15/22 * TIBC Calculated 10/15/22 * CBC w/ Auto Diff 10/15/22 * Comprehensive Metabolic Panel 10/15/22 * Ferritin 10/15/22 * Folate Level 10/15/22 * Iron Level 10/15/22 * Lipid Panel 10/15/22 * Reticulocyte Count 10/15/22 * Transferrin 10/15/22 * Vitamin B12 Level 10/15/22 [facility]03-09-2023 History of Present illness Narrative* Denis Viera MD - 12/02/2022 11:30 AM EST DATE OF SERVICE: 12/02/2022 CHIEF COMPLAINT: Patient presents for cervical cancer follow up; DIAGNOSIS: Cervical cancer stage IB1 with pelvic lymph nodes positive, status post chemoradiation HISTORY TO DATE: 1) 10/21/2016: Ms. Caballero is a 52 year old female with a history of back pain and intermittent postcoital bleeding for 2 years. She underwent an exam with her PCP and a pap smear was collected. 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 Joshi) for a LEEP. 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 10/21/2016: Patient was seen for a surgical consultation. PET/CT was obtained showing FDG avid bilateral pelvic lymph nodes. Surgery with debulking of pelvic lymph nodes and diagnostic paraaortic lymphadenectomy was recommended 3) 11/03/2016: Surgery- Robotic bilateral pelvic lymphadenectomy, bilateral paraaortic lymphadenectomy, left ovarian transposition. surgical findings: Enlarged bilateral external iliac lymph nodes Frozen section right external iliac lymph node consistent with metastatic squamous cell carcinoma Pathology: 1. Right pelvic lymph node, excision (A) - One lymph node, positive for involvement by squamous cell carcinoma (1/1), 2 cm in greatest dimension, with extranodal extension 2. Right pelvic lymph nodes, lymphadenectomy (B) - Benign fibroadipose tissue; lymphoid tissue is not present. 3. Right para-aortic lymph nodes, lymphadenectomy (C) - Three lymph nodes, negative for malignancy (0/3). 4. Left para-aortic lymph nodes, lymphadenectomy (D) - Two lymph nodes, negative for malignancy (0/2). 5. Left pelvic lymph nodes, lymphadenectomy (E) - Two lymph nodes, positive for involvement by squamous cell carcinoma (2/2), 1.6 cm in greatest dimension. 4) 12/06/2016- 01/07/2017: ([facility]- Dr. Akbar and Dr. Moses)- Treatment with weekly cisplatin at 40mg/m2. External beam radiation:Pelvis: 4,500cGy in 25 fractions, 4 [place], 3D Conformal,18 MV from Brachytherapy 01/11/17- 01/28/17 - 3000 cGy in 5 fx of 600 cGy/fx were delivered with Ir- 192 HDR brachytherapy prescribed to point A. 5) 04/29/2017: PET/CT post treatment: Interval resolution of previously seen focal uterine hypermetabolism in the previously seen bilateral focal adnexal hypermetabolism. No FDG avid neoplastic process. 6) Pap 08/17/2019 : HGSIL: patient was contacted to schedule biopsy and was lost to follow up until02/2020. 7) Last ECC and cervical biopsy completed in 02/2020- benign. CT follow up in 03/16/2021 demonstrated no metastatic disease. 8) 11/03/2022- Pap; atrophic specimen- HPV + Last office visit: 11/18/2022 PAST MEDICAL HISTORY Diagnosis Date Anemia Cervical cancer (HCC) GERD (gastroesophageal reflux disease) PAST SURGICAL HISTORY Procedure Laterality Date ADENOIDECTOMY PRIMARY <AGE 12 Adenoidectomy ASSIST ONLY HERNIA REPAIR HX 2016 x2 LEEP PROCEDURE (CLINICAL FIELD SPECIALIST DEPT)_*FL 09/2016 MYRINGOTOMY W/ TUBES HX Bilateral TONSILLECTOMY PRIMARY/SECONDARY <AGE 12 Tonsillectomy TUBAL LIGATION HX RECENT PATHOLOGY 03/24/2020 FINAL DIAGNOSIS 1. Endocervix, curettage (A) - Squamous epithelium with no significant pathologic abnormality. - No endocervical epithelium is present for evaluation. 2. Cervix, 12 o'clock, biopsy (B) - Squamous mucosa with no significant pathologic abnormality RECENT IMAGIN02/25/2021 CT A/P IMPRESSION: No metastatic disease in the abdomen and pelvis. Right renal calculi. 10 x 7.6 x 5.7 cm subcapsular right perinephric fluid collection with compression of underlying parenchyma, new since 2016 and and may represent liquefying hematoma or urinoma, (e.g. if there has been renal intervention). PET/CT - 04/29/2017: 1. NECK: No FDG avid neoplastic process. No hypermetabolic mass, adenopathy, or fluid collection. 2. CHEST: No FDG avid neoplastic process. No hypermetabolic mass, adenopathy, or fluid collection. 3. ABDOMEN/PELVIS: Interval resolution of previously seen focal uterine hypermetabolism in the previously seen bilateral focal adnexal hypermetabolism. No FDG avid neoplastic process. No hypermetabolic mass, adenopathy, or fluid collection. 4. EXTREMITIES/SKELETON: No FDG avid osseous process. MRI PELVIS- 01/05/2017: outside facility Impression: 3.2cm probable right iliac postoperative seroma. A few small pelvic lymph nodes are notsignificantly enlarged by CT criteria HEALTH MAINTENANCE: History of abnormal pap: Yes Last pap: 11/03/2022 Last HPV: 11/03/2022 + Last mammogram: age 18 Last colonoscopy: Never SUBJECTIVE/INTERVAL HISTORY: Jana Caballero feels well today. No acute complaints, presents for colposcopy. OBJECTIVE: VITALS: BP 131/55 Pulse 62 Temp (Src) 99.1 (Oral) Wt 197 lb (89.4kg) LMP 11/03/2016 GENERAL: alert, oriented, pleasant, and cooperative. HEENT: Normocephalic, atraumatic, and no lesions. PROCEDURE: COLPOSCOPY Time out was performed noting correct patient with two identifiers and correct procedure. Moving Worker : Sherrie Munoz RN Description of procedure: After informed consent was obtained, speculum placed in vagina and excellent visualization of cervix achieved, cervix swabbed and vagina swabbed with acetic acid solution. There was diffuse atrophy throughout vagina. No visible lesions of vagina or cervix noted. Squamocolumnar junction could not beadequately seen s/p radiation therefore endocervical curettage was performed. Patient tolerated the procedure well. 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 (newIIIC1) Status post pelvic/ paraaortic lymph node dissection and chemoradiation therapy f/b HDR brachy completed 01/2017. Had HSIL pap 07/2019 - lost to follow up until 2019, has not followed up since Cervical biopsy and ECC 02/2020- path benign. CT scans on 02/2021 showed no evidence of disease Patient presents today for colposcopy following NILM HPV+ pap at last visit. .No abnormal findings on colposcopy today. PLAN: - Follow up ECC - if normal pathology plan for 1 year surveillance follow up Denis Viera MD [facility] Discharge instructions Patient Education 11/23/2022 22:29:42 Pharyngitis, [id number] Pharyngitis Pharyngitis is a sore throat (pharynx). This is when there is redness, pain, and swelling in your throat. Most of the time, this condition gets better on its own. In some cases, you may need medicine. Follow these instructions at home: Take [id number]-[id number] and prescription medicines only as told by your doctor. ?If you were prescribed an antibiotic medicine, take it as told by your doctor. Do not stop taking the antibiotic even if you start to feel better. ?Do not give children aspirin. Aspirin has been linked to Dg syndrome. Drink enough water and fluids to keep your pee (urine) clear or pale yellow. Get a lot of rest. Rinse your mouth (gargle) with a salt-water mixture 3 4 times a day or as needed. To make a salt-water mixture, completely dissolve -1 tsp of salt in 1 cup of warm water. If your doctor approves, you may use throat lozenges or sprays to soothe your throat. Contact a doctor if: You have large, tender lumps in your neck. You have a rash. You cough up green, yellow-brown, or bloody spit. Get help right away if: You have a stiff neck. You drool or cannot swallow liquids. You cannot drink or take medicines without throwing up. You have very bad pain that does not go away with medicine. You have problems breathing, and it is not from a stuffy nose. You have new pain and swelling in your knees, ankles, wrists, or elbows. Summary Pharyngitis is a sore throat (pharynx). This is when there is redness, pain, and swelling in your throat. If you were prescribed an antibiotic medicine, take it as told by your doctor. Do not stop taking the antibiotic even if you start to feel better. Most of the time, pharyngitis gets better on its own. Sometimes, you may need medicine. This information is not intended to replace advice given to you by your health care provider. Make sure you discuss any questions you have with your health care provider. Document Released: 02/28/2009 Document Revised: 08/25/2018 Document Reviewed: 10/18/2017 [employer] Patient Education 2020 [employer] Follow Up Care 11/23/2022 21:00:55 With:Rangel Reyez Address: [address] [place] [address]- When:11/26/2022 [facility]02-23-2023 History of Present illness Narrative* Denis Viera MD - 11/18/2022 4:30 PM EST TELEVISIT PROGRESS NOTE This is a telephone encounter initiated for an established patient, parent or guardian not originating from a related Evaluation & Management service provided within the previous 7 days nor leading to an Evaluation & Management service or procedure within the next 24 hours or soonest available appointment. Patient name and birthday verified: Yes Location of patient: Home Persons Present: patient DATE OF SERVICE: 11/18/2022 CHIEF COMPLAINT: Patient presents for cervical cancer follow up; discuss plan of care. DIAGNOSIS: Cervical cancer stage IB1 with pelvic lymph nodes positive, status post chemoradiation HISTORY TO DATE: 1) 10/21/2016: Ms. Caballero is a 52 year old female with a history of back pain and intermittent postcoital bleeding for 2 years. She underwent an exam with her PCP and a pap smear was collected. 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 Joshi) for a LEEP. 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 10/21/2016: Patient was seen for a surgical consultation. PET/CT was obtained showing FDG avid bilateral pelvic lymph nodes. Surgery with debulking of pelvic lymph nodes and diagnostic paraaortic lymphadenectomy was recommended 3) 11/03/2016: Surgery- Robotic bilateral pelvic lymphadenectomy, bilateral paraaortic lymphadenectomy, left ovarian transposition. surgical findings: Enlarged bilateral external iliac lymph nodes Frozen section right external iliac lymph node consistent with metastatic squamous cell carcinoma Pathology: 1. Right pelvic lymph node, excision (A) - One lymph node, positive for involvement by squamous cell carcinoma (1/1), 2 cm in greatest dimension, with extranodal extension 2. Right pelvic lymph nodes, lymphadenectomy (B) - Benign fibroadipose tissue; lymphoid tissue is not present. 3. Right para-aortic lymph nodes, lymphadenectomy (C) - Three lymph nodes, negative for malignancy (0/3). 4. Left para-aortic lymph nodes, lymphadenectomy (D) - Two lymph nodes, negative for malignancy (0/2). 5. Left pelvic lymph nodes, lymphadenectomy (E) - Two lymph nodes, positive for involvement by squamous cell carcinoma (2/2), 1.6 cm in greatest dimension. 4) 12/06/2016- 01/07/2017: ([facility]- Dr. Akbar and Dr. Moses)- Treatment with weekly cisplatin at 40mg/m2. External beam radiation:Pelvis: 4,500cGy in 25 fractions, 4 Tejada, 3D Conformal,18 MV from Brachytherapy 01/11/17- 01/28/17 - 3000 cGy in 5 fx of 600 cGy/fx were delivered with Ir- 192 HDR brachytherapy prescribed to point A. 5) 04/29/2017: PET/CT post treatment: Interval resolution of previously seen focal uterine hypermetabolism in the previously seen bilateral focal adnexal hypermetabolism. No FDG avid neoplastic process. 6) Pap 08/17/2019 : HGSIL: patient was contacted to schedule biopsy and was lost to follow up until02/2020. 7) Last ECC and cervical biopsy completed in 02/2020- benign. CT follow up in 03/16/2021 demonstrated no metastatic disease. 8) 11/03/2022- Pap; atrophic specimen- HPV + Last office visit: 11/03/2022 PAST MEDICAL HISTORY Diagnosis Date Anemia Cervical cancer (HCC) GERD (gastroesophageal reflux disease) PAST SURGICAL HISTORY Procedure Laterality Date ADENOIDECTOMY PRIMARY <AGE 12 Adenoidectomy ASSIST ONLY HERNIA REPAIR HX 2016 x2 LEEP PROCEDURE (CLINICAL FIELD SPECIALIST DEPT)_*FL 09/2016 MYRINGOTOMY W/ TUBES HX Bilateral TONSILLECTOMY PRIMARY/SECONDARY <AGE 12 Tonsillectomy TUBAL LIGATION HX RECENT PATHOLOGY 03/24/2020 FINAL DIAGNOSIS 1. Endocervix, curettage (A) - Squamous epithelium with no significant pathologic abnormality. - No endocervical epithelium is present for evaluation. 2. Cervix, 12 o'clock, biopsy (B) - Squamous mucosa with no significant pathologic abnormality RECENT IMAGIN02/25/2021 CT A/P IMPRESSION: No metastatic disease in the abdomen and pelvis. Right renal calculi. 10 x 7.6 x 5.7 cm subcapsular right perinephric fluid collection with compression of underlying parenchyma, new since 2017 and and may represent liquefying hematoma or urinoma, (e.g. if there has been renal intervention). PET/CT - 04/29/2017: 1. NECK: No FDG avid neoplastic process. No hypermetabolic mass, adenopathy, or fluid collection. 2. CHEST: No FDG avid neoplastic process. No hypermetabolic mass, adenopathy, or fluid collection. 3. ABDOMEN/PELVIS: Interval resolution of previously seen focal uterine hypermetabolism in the previously seen bilateral focal adnexal hypermetabolism. No FDG avid neoplastic process. No hypermetabolic mass, adenopathy, or fluid collection. 4. EXTREMITIES/SKELETON: No FDG avid osseous process. MRI PELVIS- 01/05/2017: outside facility Impression: 3.2cm probable right iliac postoperative seroma. A few small pelvic lymph nodes are notsignificantly enlarged by CT criteria HEALTH MAINTENANCE: History of abnormal pap: Yes Last pap: 11/03/2022 Last HPV: 11/03/2022 + Last mammogram: age 18 Last colonoscopy: Never SUBJECTIVE/INTERVAL HISTORY: Jana Caballero is doing well today without complaints. Anxious to discuss pap results and plan of care. 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 (newIIIC1) Status post pelvic/ paraaortic lymph node dissection and chemoradiation therapy f/b HDR brachy completed 01/2017. Had HSIL pap 07/2019 - lost to follow up until 2019, has not followed up since Cervical biopsy and ECC 02/2020- path benign. CT scans on 02/2021 showed no evidence of disease Patient presents for televisit today after recently being seen in the office for surveillance visit. Pap at that time showed NILM HPV+. Due to history of cervical cancer and lapse in recent follow up- plan for colposcopic examination in the office for further evaluation. I discussed details of this procedure and patient is familiar as she has had colposcopy and LEEP in the past prior to her cervical cancer diagnosis. We will plan to proceed on 12/02 in the office at [place]. Colonoscopy scheduled for 11/26 per patient report. PLAN: - 12/02 office colposcopy at [facility] Denis Viera MD I spent 12 minutes discussing plan of care with patient. documented [facility] NoteHNO ID: [id number] Author: Marco Solares MD Service: ? Author Type: Physician Type: Progress Notes Filed: 11/13/2022 12:20 PM Note Text: Patient called and that she was returning a call from 4 days ago and wondering what it was about. I instructed the patient to call office 11/15/22[facility] Miscellaneous Notes* Telephone Encounter - Lindsay Wood Sec - 11/10/2022 1:11 PM EST Called sibling also for appointment no answer either * Telephone Encounter - Lindsay Wood Sec - 11/10/2022 9:27 AM EST Images from the original note were not included. Called patient mutiple times to schedule her phone is not working currently. Denis Viera MD [employer]er[employer] I would like to talk to this patient about her pap results - I sent her a Medxnote message about theresults - but can someone see if she is availble tomorrow for a telephone visit so that I can talk to her about setting up a colposcopy at the [place] office? Thanks. Denis documented in this encounterL[facility] Miscellaneous Notes* Telephone Encounter - Kim Valdes - 11/08/2022 1:29 PM EST Patient has been scheduled for 11-09-23. Mailed appointment reminder as she requested and she also has mychart. * Telephone Encounter - Kim Valdes - 11/04/2022 3:01 PM EST The last date for your De[employer] template is 10-12-23. * Telephone Encounter - Kim Valdes - 11/04/2022 8:36 AM EST Jana stopped at check out to schedule a yearly follow up. At this time you do not have a template to schedule that far out. Also, I did not see your orders for a year follow up. Thank you documented in [facility] encounterL[facility] NoteHNO ID: [id number] Author: Denis Viera MD Service: ? Author Type: Physician Type: Progress Notes Filed: 11/03/2022 9:16 PM Note Text: DATE OF SERVICE: 11/03/2022 CHIEF COMPLAINT: Patient presents for cervical cancer follow up, previous patient of Dr. Valdez (Has not been seen since 2019) DIAGNOSIS: Cervical cancer stage IB1 with pelvic lymph nodes positive, status post chemoradiation HISTORY TO DATE: 1) 10/21/2016: Ms. Caballero is a 52 year old female with a history of back pain and intermittent post coital bleeding for 2 years. She underwent an exam with her PCP and a pap smear was collected. 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 Joshi) for a LEEP. 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 10/21/2016: Patient was seen for a surgical consultation. PET/CT was obtained showing FDG avid bilateral pelvic lymph nodes. Surgery with debulking of pelvic lymph nodes and diagnostic paraaortic lymphadenectomy was recommended 3) 11/03/2016: Surgery- Robotic bilateral pelvic lymphadenectomy, bilateral paraaortic lymphadenectomy, left ovarian transposition. surgical findings: Enlarged bilateral external iliac lymph nodes Frozen section right external iliac lymph node consistent with metastatic squamous cell carcinoma Pathology: 1. Right pelvic lymph node, excision (A) - One lymph node, positive for involvement by squamous cell carcinoma (1/1), 2 cm in greatest dimension, with extranodal extension 2. Right pelvic lymph nodes, lymphadenectomy (B) - Benign fibroadipose tissue; lymphoid tissue is not present. 3. Right para-aortic lymph nodes, lymphadenectomy (C) - Three lymph nodes, negative for malignancy (0/3). 4. Left para-aortic lymph nodes, lymphadenectomy (D) - Two lymph nodes, negative for malignancy (0/2). 5. Left pelvic lymph nodes, lymphadenectomy (E) - Two lymph nodes, positive for involvement by squamous cell carcinoma (2/2), 1.6 cm in greatest dimension. 4) 12/06/2016- 01/07/2017: ([facility]- Dr. Akbar and Dr. Moses)- Treatment with weekly cisplatin at 40mg/m2. External beam radiation:Pelvis: 4,500cGy in 25 fractions, 4 Tejada, 3D Conformal,18 MV from Brachytherapy 01/11/17- 01/28/17 - 3000 cGy in 5 fx of 600 cGy/fx were delivered with Ir- 192 HDR brachytherapy prescribed to point A. 5) 04/29/2017: PET/CT post treatment: Interval resolution of previously seen focal uterine hypermetabolism in the previously seen bilateral focal adnexal hypermetabolism. No FDG avid neoplastic process. 6) Pap 08/17/2019 : HGSIL: patient was contacted to schedule biopsy and was lost to follow up until 02/2020. 7) Last ECC and cervical biopsy completed in 02/2020- benign. CT follow up in 03/16/2021 demonstrated no metastatic disease. Last office visit: 03/24/2020 PAST MEDICAL HISTORY Diagnosis Date Anemia Cervical cancer (HCC) GERD (gastroesophageal reflux disease) PAST SURGICAL HISTORY Procedure Laterality Date ADENOIDECTOMY PRIMARY Adenoidectomy ASSIST ONLY HERNIA REPAIR HX 2016 x2 LEEP PROCEDURE (CLINICAL FIELD SPECIALIST DEPT)_*FL 09/2016 MYRINGOTOMY W/ TUBES HX Bilateral TONSILLECTOMY PRIMARY/SECONDARY Tonsillectomy TUBAL LIGATION HX RECENT PATHOLOGY 03/24/2020 FINAL DIAGNOSIS 1. Endocervix, curettage (A) - Squamous epithelium with no significant pathologic abnormality. - No endocervical epithelium is present for evaluation. 2. Cervix, 12 o'clock, biopsy (B) - Squamous mucosa with no significant pathologic abnormality RECENT IMAGIN02/25/2021 CT A/P IMPRESSION: No metastatic disease in the abdomen and pelvis. Right renal calculi. 10 x 7.6 x 5.7 cm subcapsular right perinephric fluid collection with compression of underlying parenchyma, new since 2017 and and may represent liquefying hematoma or urinoma, (e.g. if there has been renal intervention). PET/CT - 04/29/2017: 1. NECK: No FDG avid neoplastic process. No hypermetabolic mass, adenopathy, or fluid collection. 2. CHEST: No FDG avid neoplastic process. No hypermetabolic mass, adenopathy, or fluid collection. 3. ABDOMEN/PELVIS: Interval resolution of previously seen focal uterine hypermetabolism in the previously seen bilateral focal adnexal hypermetabolism. No FDG avid neoplastic process. No hypermetabolic mass, adenopathy, or fluid collection. 4. EXTREMITIES/SKELETON: No FDG avid osseous process. MRI PELVIS- 01/05/2017: outside facility Impression: 3.2cm probable right iliac postoperative seroma. A few small pelvic lymph nodes are not significantly enlarged by CT criteria HEALTH MAINTENANCE: History of abnormal pap: Yes Last pap: 08/17/2019 HSIL Last HPV: Unknown Last mammogram: age 18 Last colonoscopy: Never SUBJECTIVE HISTORY: Jana Caballero is doing well without symptoms today. She reports that she th (more content not included)...[facility] 11-03-2022 History of Present illness Narrative* Denis Viera MD - 11/03/2022 10:00 AM EST DATE OF SERVICE: 11/03/2022 CHIEF COMPLAINT: Patient presents for cervical cancer follow up, previous patient of Dr. Valdez (Has not been seen since 2019) DIAGNOSIS: Cervical cancer stage IB1 with pelvic lymph nodes positive, status post chemoradiation HISTORY TO DATE: 1) 10/21/2016: Ms. Caballero is a 52 year old female with a history of back pain and intermittent postcoital bleeding for 2 years. She underwent an exam with her PCP and a pap smear was collected. 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 Joshi) for a LEEP. 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 10/21/2016: Patient was seen for a surgical consultation. PET/CT was obtained showing FDG avid bilateral pelvic lymph nodes. Surgery with debulking of pelvic lymph nodes and diagnostic paraaortic lymphadenectomy was recommended 3) 11/03/2016: Surgery- Robotic bilateral pelvic lymphadenectomy, bilateral paraaortic lymphadenectomy, left ovarian transposition. surgical findings: Enlarged bilateral external iliac lymph nodes Frozen section right external iliac lymph node consistent with metastatic squamous cell carcinoma Pathology: 1. Right pelvic lymph node, excision (A) - One lymph node, positive for involvement by squamous cell carcinoma (1/1), 2 cm in greatest dimension, with extranodal extension 2. Right pelvic lymph nodes, lymphadenectomy (B) - Benign fibroadipose tissue; lymphoid tissue is not present. 3. Right para-aortic lymph nodes, lymphadenectomy (C) - Three lymph nodes, negative for malignancy (0/3). 4. Left para-aortic lymph nodes, lymphadenectomy (D) - Two lymph nodes, negative for malignancy (0/2). 5. Left pelvic lymph nodes, lymphadenectomy (E) - Two lymph nodes, positive for involvement by squamous cell carcinoma (2/2), 1.6 cm in greatest dimension. 4) 12/06/2016- 01/07/2017: ([facility]- Dr. Akbar and Dr. Moses)- Treatment with weekly cisplatin at 40mg/m2. External beam radiation:Pelvis: 4,500cGy in 25 fractions, 4 Tejada, 3D Conformal,18 MV from Brachytherapy 01/11/17- 01/28/17 - 3000 cGy in 5 fx of 600 cGy/fx were delivered with Ir- 192 HDR brachytherapy prescribed to point A. 5) 04/29/2017: PET/CT post treatment: Interval resolution of previously seen focal uterine hypermetabolism in the previously seen bilateral focal adnexal hypermetabolism. No FDG avid neoplastic process. 6) Pap 08/17/2019 : HGSIL: patient was contacted to schedule biopsy and was lost to follow up until02/2020. 7) Last ECC and cervical biopsy completed in 02/2020- benign. CT follow up in 03/16/2021 demonstrated no metastatic disease. Last office visit: 03/24/2020 PAST MEDICAL HISTORY Diagnosis Date Anemia Cervical cancer (HCC) GERD (gastroesophageal reflux disease) PAST SURGICAL HISTORY Procedure Laterality Date ADENOIDECTOMY PRIMARY <AGE 12 Adenoidectomy ASSIST ONLY HERNIA REPAIR HX 2016 x2 LEEP PROCEDURE (CLINICAL FIELD SPECIALIST DEPT)_*FL 09/2016 MYRINGOTOMY W/ TUBES HX Bilateral TONSILLECTOMY PRIMARY/SECONDARY <AGE 12 Tonsillectomy TUBAL LIGATION HX RECENT PATHOLOGY 03/24/2020 FINAL DIAGNOSIS 1. Endocervix, curettage (A) - Squamous epithelium with no significant pathologic abnormality. - No endocervical epithelium is present for evaluation. 2. Cervix, 12 o'clock, biopsy (B) - Squamous mucosa with no significant pathologic abnormality RECENT IMAGIN02/25/2021 CT A/P IMPRESSION: No metastatic disease in the abdomen and pelvis. Right renal calculi. 10 x 7.6 x 5.7 cm subcapsular right perinephric fluid collection with compression of underlying parenchyma, new since 2016 and and may represent liquefying hematoma or urinoma, (e.g. if there has been renal intervention). PET/CT - 04/29/2017: 1. NECK: No FDG avid neoplastic process. No hypermetabolic mass, adenopathy, or fluid collection. 2. CHEST: No FDG avid neoplastic process. No hypermetabolic mass, adenopathy, or fluid collection. 3. ABDOMEN/PELVIS: Interval resolution of previously seen focal uterine hypermetabolism in the previously seen bilateral focal adnexal hypermetabolism. No FDG avid neoplastic process. No hypermetabolic mass, adenopathy, or fluid collection. 4. EXTREMITIES/SKELETON: No FDG avid osseous process. MRI PELVIS- 01/05/2017: outside facility Impression: 3.2cm probable right iliac postoperative seroma. A few small pelvic lymph nodes are notsignificantly enlarged by CT criteria HEALTH MAINTENANCE: History of abnormal pap: Yes Last pap: 08/17/2019 HSIL Last HPV: Unknown Last mammogram: age 18 Last colonoscopy: Never SUBJECTIVE HISTORY: Jana Caballero is doing well without symptoms today. She reports that she thought she was in remission so she was not aware she needed additional piece cutter onc follow up. She denies anybothersome menopausal symptoms. Denies vaginal bleeding. She reports a ventral hernia which at times protrudes but is never painful. Her ECOG performance status is zero (fully active, able to carry on all pre-disease performance without restriction). OBJECTIVE: VITALS: BP 142/75 Pulse 61 Temp (Src) 97.9 (Temporal) Resp 16 Wt 194 lb 12.8 oz (88.4kg) SpO2 96% LMP 11/03/2016 GENERAL: alert, oriented, pleasant, and cooperative. HEENT: Normocephalic, atraumatic, and no lesions. NECK: Supple, no adenopathy HEART: Regular rate and rhythm, LUNGS: Clear to auscultation bilaterally. Good air exchange. ABDOMEN: Abdomen soft, non-tender, PELVIC: external genitalia normal appearing, vagina with atrophy and radiation changes, cervix flush with vaginal mucosa, no evidence of disease, pap obtained LOWER EXTREMITIES: No pitting edema and no skin changes ASSESSMENT: 1. Jana Caballero is a 52 year old F with IBI SCC of the cervix with positive pelvic lymph nodes. (new IIIC1) 2. Status post pelvic/ paraaortic lymph node dissection and chemoradiation therapy f/b HDR brachy completed 01/2017. 3. HSIL pap 07/2019 - lost to follow up until 2019, has not followed up since Cervical biopsy and ECC 02/2020- path benign. CT scans on 02/2021 showed no evidence of disease Patient is primary guardian of her 9 y/o grandson, many social struggles with her family which may have contributed to her lack of follow up but overall doing well, regular attends counseling to helpwith coping. JILLIAN on exam today, pap obtained today. Patient reports she has an upcoming mammogram and will follow up with PCP for colonoscopy order. PLAN: - follow up pap smear - return to care in 1 year if pap wnl Denis Viera MD Medical Decision Making: Problems: Low: Stable chronic illness Data: Unique test(s) ordered: 1 Risk: Minimal: Minimal risk from testing/treatment Moderate: Management significantly limited by SDOH Medical Decision Making Level: 3 - [facility] + Plan note Future Scheduled Tests Laboratory* HgbA1c 10/15/22 * Erythropoietin Level 10/15/22 * TIBC Calculated 10/15/22 * CBC w/ Auto Diff 10/15/22 * Comprehensive Metabolic Panel 10/15/22 * Ferritin 10/15/22 * Folate Level 10/15/22 * Iron Level 10/15/22 * Lipid Panel 10/15/22 * Reticulocyte Count 10/15/22 * Transferrin 10/15/22 * Vitamin B12 Level 10/15/22 [facility] 01-17-2023 Hospital Discharge instructions Patient Education 10/12/2022 18:07:44 Dizziness, Slis-xl-Rlfd Dizziness Dizziness is a common problem. It makes you feel unsteady or light-headed. You may feel like you are about to pass out (faint). Dizziness can lead to getting hurt if you stumble or fall. Dizziness can be caused by many things, including: Medicines. Not having enough water in your body (dehydration). Illness. Follow these instructions at home: Eating and drinking Drink enough fluid to keep your pee (urine) clear or pale yellow. This helps to keep you from getting dehydrated. Try to drink more clear fluids, such as water. Do not drink alcohol. Limit how much caffeine you drink or eat, if your doctor tells you to do that. Limit how much salt (sodium) you drink or eat, if your doctor tells you to do that. Activity Avoid making quick movements. ?When you stand up from sitting in a chair, steady yourself until you feel okay. ?In the morning, first sit up on the side of the bed. When you feel okay, stand slowly while you hold onto something. Do this until you know that your balance is fine. If you need to brake lining curer one place for a long time, move your legs often. Tighten and relax the muscles in your legs while you are standing. Do not drive or use heavy machinery if you feel dizzy. Avoid bending down if you feel dizzy. Place items in your home so you can reach them easily withoutleaning over. Lifestyle Do not use any products that contain nicotine or tobacco, such as cigarettes and e-cigarettes. If you need help quitting, ask your doctor. Try to lower your stress level. You can do this by using methods such as yoga or meditation. Talk with your doctor if you need help. General instructions Watch your dizziness for any changes. Take witb-ncc-ulygmir and prescription medicines only as told by your doctor. Talk with your doctorif you think that you are dizzy because of a medicine that you are taking. Tell a friend or a family member that you are feeling dizzy. If he or she notices any changes in your behavior, have this person call your doctor. Keep all follow-up visits as told by your doctor. This is important. Contact a doctor if: Your dizziness does not go away. Your dizziness or light-headedness gets worse. You feel sick to your stomach (nauseous). You have trouble hearing. You have new symptoms. You are unsteady on your feet. You feel like the room is spinning. Get help right away if: You throw up (vomit) or have watery poop (diarrhea), and you cannot eat or drink anything. You have trouble: ?Talking. ?Walking. ?Swallowing. ?Using your arms, hands, or legs. You feel generally weak. You are not thinking clearly, or you have trouble forming sentences. A friend or family member may notice this. You have: ?Chest pain. ?Pain in your belly (abdomen). ?Shortness of breath. ?Sweating. Your vision changes. You are bleeding. You have a very bad headache. You have neck pain or a stiff neck. You have a fever. These symptoms may be an emergency. Do not wait to see if the symptoms will go away. Get medical help right away. Call your local emergency services (911 in the [place] Do not drive yourself to the hospital. Summary Dizziness makes you feel unsteady or light-headed. You may feel like you are about to pass out (faint). Drink enough fluid to keep your pee (urine) clear or pale yellow. Do not drink alcohol. Avoid making quick movements if you feel dizzy. Watch your dizziness for any changes. This information is not intended to replace advice given to you by your health care provider. Make sure you discuss any questions you have with your health care provider. Document Released: 08/31/2012 Document Revised: 09/15/2018 Document Reviewed: 09/29/2017 [employer] Patient Education 2020 [employer] 10/12/2022 18:07:38 BMI for Adults BMI for Adults Body mass index (BMI) is a number that is calculated from a person's weight and height. BMI may help to estimate how much of a person's weight is composed of fat. BMI can help identify those who may be at higher risk for certain medical problems. How is BMI used with adults? BMI is used as a screening tool to identify possible weight problems. It is used to check whether aperson is obese, overweight, healthy weight, or underweight. How is BMI calculated? BMI measures your weight and compares it to your height. This can be done either in [place] ([place] or metric measurements. Note that charts are available to help you find your BMI quickly and easily without having to do these calculations yourself. To calculate your BMI in [place] ([place] measurements, your health care provider will: 1.Measure your weight in pounds (lb). 2.Multiply the number of pounds by 703. For example, for a person who weighs 180 lb, multiply that number by 703, which equals 126,540. 3.Measure your height in inches (in). Then multiply that number by itself to get a measurement called inches squared. For example, for a person who is 70 in tall, the inches squared measurement is 70 in x 70 in, which equals 4900 inches squared. 4.Divide the total from Step 2 (number of lb x 703) by the total from Step 3 (inches squared): 126,540 4900 = 25.8. This is your BMI. To calculate your BMI in metric measurements, your health care provider will: 1.Measure your weight in kilograms (kg). 2.Measure your height in meters (m). Then multiply that number by itself to get a measurement called meters squared. For example, for a person who is 1.75 m tall, the meters squared measurement is 1.75 m x 1.75 m, which is equal to 3.1 meters squared. 3.Divide the number of kilograms (your weight) by the meters squared number. In this example: 70 3.1 = 22.6. This is your BMI. How is BMI interpreted? To interpret your results, your health care provider will use BMI charts to identify whether you are underweight, normal weight, overweight, or obese. The following guidelines will be used: Underweight: BMI less than 18.5. Normal weight: BMI between 18.5 and 24.9. Overweight: BMI between 25 and 29.9. Obese: BMI of 30 and above. Please note: Weight includes both fat and muscle, so someone with a muscular build, such as an athlete, may havea BMI that is higher than 24.9. In cases like these, BMI is not an accurate measure of body fat. To determine if excess body fat is the cause of a BMI of 25 or higher, further assessments may needto be done by a health care provider. BMI is usually interpreted in the same way for men and women. Why is BMI a useful tool? BMI is useful in two ways: Identifying a weight problem that may be related to a medical condition, or that may increase the risk for medical problems. Promoting lifestyle and diet changes in order to reach a healthy weight. Summary Body mass index (BMI) is a number that is calculated from a person's weight and height. BMI may help to estimate how much of a person's weight is composed of fat. BMI can help identify those who may be at higher risk for certain medical problems. BMI can be measured using Syrian measurements or metric measurements. To interpret your results, your health care provider will use BMI charts to identify whether you are underweight, normal weight, overweight, or obese. This information is not intended to replace advice given to you by your health care provider. Make sure you discuss any questions you have with your health care provider. Document Released: 05/24/2005 Document Revised: 08/25/2018 Document Reviewed: 07/26/2018 [employer] Patient Education 2020 [employer]+. Follow Up Care 10/12/2022 14:26:27 With:Rangel Reyez DO, FAM, PED Address: [address] [place] [phone]- When: Unknown [facility] 09-27-2022 Evaluation + Plan note Future Scheduled Tests Laboratory* HgbA1c 06/22/22 * CBC w/ Auto Diff 06/22/22 * Comprehensive Metabolic Panel 06/22/22 * Lipid Panel 06/22/22 [facility] 09-07-2022 Evaluation + Plan noteExtracted from: Title:ED Note Author:Gustavo BRIONES, Wes Alvarez te:06/02/22 Suspected COVID-19 virus inf ection (Z20.822: Contact with and (suspected) exposure to COVID-19) Upper respiratory infection (J06.9: Acute upper respiratory infection, unspecified) Orders: albuterol, 1 puff(s), Inhalation, q6hr for wheezing, 8.5 gm, Refill(s) 0, [employer] [id number], 168, cm, 06/02/22 9:45:00 EDT, Height/Length Dosing, 93, kg, 06/02/22 9:45:00 EDT, Weight Dosing dexamethasone, 10 mg = 2.5 mL, Injection, Oral, Once, Stop date 06/02/22 10:31:00 EDT, STAT, Start date 06/02/22 10:31:00 EDT, 06/02/22 10:31:00 EDT Group A Strep by PCR Rapid COVID Antigen [place] Rapid Strep w/rfx Future Scheduled Tests Laboratory* Rapid COVID Antigen ([facility]) 06/11/21 [facility] Hospital Discharge instructions Patient Education 06/02/2022 10:49:35 Cough, Adult Cough, Adult Coughing is a reflex that clears your throat and your airways (respiratory system). Coughing helps to heal and protect your lungs. It is normal to cough occasionally, but a cough that happens with other symptoms or lasts a long time may be a sign of a condition that needs treatment. An acute cough may only last 2 3 weeks, while a chronic cough may last 8 or more weeks. Coughing is commonly caused by: Infection of the respiratory systemby viruses or bacteria. Breathing in substances that irritate your lungs. Allergies. Asthma. Mucus that runs down the back of your throat (postnasal drip). Smoking. Acid backing up from the stomach into the esophagus (gastroesophageal reflux). Certain medicines. Chronic lung problems. Other medical conditions such as heart failure or a blood clot in the lung (pulmonary embolism). Follow these instructions at home: Medicines Take xnnw-cux-gfobquf and prescription medicines only as told by your health care provider. Talk with your health care provider before you take a cough suppressant medicine. Lifestyle Avoid cigarette smoke. Do not use any products that contain nicotine or tobacco, such as cigarettes, e-cigarettes, and chewing tobacco. If you need help quitting, ask your health care provider. Drink enough fluid to keep your urine pale yellow. Avoid caffeine. Do not drink alcohol if your health care provider tells you not to drink. General instructions Pay close attention to changes in your cough. Tell your health care provider about them. Always cover your mouth when you cough. Avoid things that make you cough, such as perfume, candles, cleaning products, or campfire or tobacco smoke. If the air is dry, use a cool mist vaporizer or humidifier in your bedroom or your home to help loosen secretions. If your cough is worse at night, try to sleep in a semi-upright position. Rest as needed. Keep all follow-up visits as told by your health care provider. This is important. Contact a health care provider if you: Have new symptoms. Cough up pus. Have a cough that does not get better after 2 3 weeks or gets worse. Cannot control your cough with cough suppressant medicines and you are losing sleep. Have pain that gets worse or pain that is not helped with medicine. Have a fever. Have unexplained weight loss. Have night sweats. Get help right away if: You cough up blood. You have difficulty breathing. Your heartbeat is very fast. These symptoms may represent a serious problem that is an emergency. Do not wait to see if the symptoms will go away. Get medical help right away. Call your local emergency services (911 in the [place] Do not drive yourself to the hospital. Summary Coughing is a reflex that clears your throat and your airways. It is normal to cough occasionally, but a cough that happens with other symptoms or lasts a long time may be a sign of a condition that needs treatment. Take riqj-wxn-kyaglao and prescription medicines only as told by your health care provider. Always cover your mouth when you cough. Contact a health care provider if you have new symptoms or a cough that does not get better after 23 weeks or gets worse. This information is not intended to replace advice given to you by your health care provider. Make sure you discuss any questions you have with your health care provider. Document Released: 03/10/2012 Document Revised: 10/01/2019 Document Reviewed: 10/01/2019 [employer] Patient Education 2020 [employer]+. 06/02/2022 10:49:35 Upper Respiratory Infection, Adult Upper Respiratory Infection, Adult An upper respiratory infection (URI) is a common viral infection of the nose, throat, and upper airpassages that lead to the lungs. The most common type of URI is the common cold. URIs usually get better on their own, without medical treatment. What are the causes? A URI is caused by a virus. You may catch a virus by: Breathing in droplets from an infected person's cough or sneeze. Touching something that has been exposed to the virus (contaminated) and then touching your mouth, nose, or eyes. What increases the risk? You are more likely to get a URI if: You are very young or very old. It is honey or winter. You have close contact with others, such as at a daycare, school, or health care facility. You smoke. You have long-term (chronic) heart or lung disease. You have a weakened disease-fighting (immune) system. You have nasal allergies or asthma. You are experiencing a lot of stress. You work in an area that has poor air circulation. You have poor nutrition. What are the signs or symptoms? A URI usually involves some of the following symptoms: Runny or stuffy (congested) nose. Sneezing. Cough. Sore throat. Headache. Fatigue. Fever. Loss of appetite. Pain in your forehead, behind your eyes, and over your cheekbones (sinus pain). Muscle aches. Redness or irritation of the eyes. Pressure in the ears or face. How is this diagnosed? This condition may be diagnosed based on your medical history and symptoms, and a physical exam. Your health care provider may use a cotton swab to take a mucus sample from your nose (nasal swab). This sample can be tested to determine what virus is causing the illness. How is this treated? URIs usually get better on their own within 7 10 days. You can take steps at home to relieve your symptoms. Medicines cannot cure URIs, but your health care provider may recommend certain medicines to help relieve symptoms, such as: Fqge-jej-nqgccqj cold medicines. Cough suppressants. Coughing is a type of defense against infection that helps to clear the respiratory system, so take these medicines only as recommended by your health care provider. Fever-reducing medicines. Follow these instructions at home: Activity Rest as needed. If you have a fever, stay home from work or school until your fever is gone or until your health care provider says you are no longer contagious. Your health care provider may have you wear a face mask to prevent your infection from spreading. Relieving symptoms Gargle with a salt-water mixture 3 4 times a day or as needed. To make a salt- water mixture, completely dissolve 1 tsp of salt in 1 cup of warm water. Use a cool-mist humidifier to add moisture to the air. This can help you breathe more easily. Eating and drinking Drink enough fluid to keep your urine pale yellow. Eat soups and other clear broths. General instructions Take uthl-vno-anqfjrf and prescription medicines only as told by your health care provider. These include cold medicines, fever reducers, and cough suppressants. Do not use any products that contain nicotine or tobacco, such as cigarettes and e-cigarettes. If you need help quitting, ask your health care provider. Stay away from secondhand smoke. Stay up to date on all immunizations, including the yearly (annual) flu vaccine. Keep all follow-up visits as told by your health care provider. This is important. How to prevent the spread of infection to others URIs can be passed from person to person (are contagious). To prevent the infection from spreading: ?Wash your hands often with soap and water. If soap and water are not available, use hand power tool repairer. ?Avoid touching your mouth, face, eyes, or nose. ?Cough or sneeze into a tissue or your sleeve or elbow instead of into your hand or into the air. Contact a health care provider if: You are getting worse instead of better. You have a fever or chills. Your mucus is brown or red. You have yellow or brown discharge coming from your nose. You have pain in your face, especially when you bend forward. You have swollen neck glands. You have pain while swallowing. You have white areas in the back of your throat. Get help right away if: You have shortness of breath that gets worse. You have severe or persistent: ?Headache. ?Ear pain. ?Sinus pain. ?Chest pain. You have chronic lung disease along with any of the following: ?Wheezing. ?Prolonged cough. ?Coughing up blood. ?A change in your usual mucus. You have a stiff neck. You have changes in your: ?Vision. ?Hearing. ?Thinking. ?Mood. Summary An upper respiratory infection (URI) is a common infection of the nose, throat, and upper air passages that lead to the lungs. A URI is caused by a virus. URIs usually get better on their own within 7 10 days. Medicines cannot cure URIs, but your health care provider may recommend certain medicines to help relieve symptoms. This information is not intended to replace advice given to you by your health care provider. Make sure you discuss any questions you have with your health care provider. Document Released: 03/08/2002 Document Revised: 09/20/2019 Document Reviewed: 04/28/2018 [employer] Patient Education [employer]. Follow Up Care 06/02/2022 09:39:17 With:Brooke GLEASON Address: [address] [place] [address] Business (1) When:06/05/2022 10:33:18 Comments:Follow-up with your primary care provider in 3 to 5 days. If symptoms worsen, do not improve, or new symptoms arise please report back to emergency department for further evaluation. [facility] Appointment Date:06/02/2022 11:40:00 AM Scheduled Provider:Julee Castro CNP Location:[facility] Appointment Type: Open Future Scheduled Tests Laboratory* Rapid COVID Antigen ([facility] 06/11/21 [facility] [place] Evaluation + Plan note Future Appointments Appointment Date:10/15/2022 11:20:00 AM Scheduled Provider:Rangel Reyez DO Location:[facility] Appointment Type: Open Future Scheduled Tests Laboratory* HgbA1c 06/22/22 * CBC w/ Auto Diff 06/22/22 * Comprehensive Metabolic Panel 06/22/22 * Lipid Panel 06/22/22 [facility] Evaluation + Plan noteExtracted from: Title:ED Note Author:Kaitlynn Davis PA-C Date:11/24/22 1. Acute pharyngitis (J02.9: Acute pharyngitis, unspecified) Orders: amoxicillin, 500 mg = 1 cap(s), Cap, Oral, Once, Stop date 11/23/22 22:08:00 EST, STAT, Start date 11/23/22 22:08:00 EST, 11/23/22 22:08:00 EST amoxicillin, 500 mg = 1 cap(s), Oral, q12hr, # 20 cap(s), Refills(s) 0, Pharmacy: [facility] #[id number], 168, cm, 11/23/22 21:09:00 EST, Height/Length Dosing, 87.4, kg, 11/23/22 21:09:00 EST, Weight Dosing Group A Strep by PCR Rapid Strep w/rfx Future Appointments Appointment Date:11/26/2022 09:40:00 AM Scheduled Provider:Emre Owen CNP [place] App[facility]ment Type:[facility] Screening Diagnostic Tests Pending * Group A Strep by PCR 11/23/22 Future Scheduled Tests Laboratory* HgbA1c 10/15/22 * Erythropoietin Level 10/15/22 * TIBC Calculated 10/15/22 * CBC w/ Auto Diff 10/15/22 * Comprehensive Metabolic Panel 10/15/22 * Ferritin 10/15/22 * Folate Level 10/15/22 * Iron Level 10/15/22 * Lipid Panel 10/15/22 * Reticulocyte Count 10/15/22 * Transferrin 10/15/22 * Vitamin B12 Level 10/15/22 [facility]ments Appointment Date:12/05/2023 10:20:00 AM Scheduled Provider:Brigitte Carpenter [facility] Appointment Date:01/12/2024 10:40:00 AM Scheduled Provider:Brigitte Carpenter Location:[facility] Appointment Type:FM Open Future Scheduled Tests Laboratory* U Protein/Creat Ratio 12/08/23 * HgbA1c 12/08/23 * Albumin Level Urine 12/08/23 * TIBC Calculated 12/08/23 * Urinalysis 12/08/23 * Vitamin D 25 Hydroxy 12/08/23 * CBC w/ Auto Diff 12/08/23 * Comprehensive Metabolic Panel 12/08/23 * Ferritin 12/08/23 * Iron Level 12/08/23 * Lipid Panel 12/08/23 * Reticulocyte Count 12/08/23 * Thyroid Stimulating Hormone 12/08/23 * Vitamin B12 Level 12/08/23 Radiology* MA Mamm Screen w/CAD if perf and 3D Tye 12/08/23 [facility] Evaluation + Plan note Future Appointments Appointment Date:01/12/2024 10:40:00 AM Scheduled Provider:Brigitte Carpenter Location:[facility] Appointment Type:FM Open Future Scheduled Tests Laboratory* U Protein/Creat Ratio 12/08/23 * HgbA1c 12/08/23 * Albumin Level Urine 12/08/23 * TIBC Calculated 12/08/23 * Urinalysis 12/08/23 * Vitamin D 25 Hydroxy 12/08/23 * Ferritin 12/08/23 * Iron Level 12/08/23 * Lipid Panel 12/08/23 * Reticulocyte Count 12/08/23 * Thyroid Stimulating Hormone 12/08/23 * Vitamin B12 Level 12/08/23 Radiology* MA Mamm Screen w/CAD if perf and 3D Tye 12/08/23 [facility] Evaluation + Plan note Future Appointments Appointment Date:01/12/2024 10:40:00 AM Scheduled Provider:Brigitte Carpenter Location:[facility] Appointment Type:FM Open Diagnostic Tests Pending * Urine Culture 01/04/24 Future Scheduled Tests Laboratory* U Protein/Creat Ratio 12/08/23 * HgbA1c 12/08/23 * Albumin Level Urine 12/08/23 * TIBC Calculated 12/08/23 * Urinalysis 12/08/23 * Vitamin D 25 Hydroxy 12/08/23 * Ferritin 12/08/23 * Iron Level 12/08/23 * Lipid Panel 12/08/23 * Reticulocyte Count 12/08/23 * Thyroid Stimulating Hormone 12/08/23 * Vitamin B12 Level 12/08/23 Radiology* MA Mamm Screen w/CAD if perf and 3D Tye 12/08/23 [facility] Appointment Date:09/07/2024 11:20:00 AM Scheduled Provider:Brigitte Carpenter Location:[facility] Appointment Type: Open Future Scheduled Tests Laboratory* U Protein/Creat Ratio 12/08/23 * HgbA1c 12/08/23 * Albumin Level Urine 12/08/23 * TIBC Calculated 12/08/23 * Urinalysis 12/08/23 * Vitamin D 25 Hydroxy 12/08/23 * Comprehensive Metabolic Panel 08/15/24 * Ferritin 12/08/23 * Iron Level 12/08/23 * Lipase Level 08/15/24 * Lipid Panel 12/08/23 * Reticulocyte Count 12/08/23 * Thyroid Stimulating Hormone 12/08/23 * Vitamin B12 Level 12/08/23 Radiology* XR Spine Lumbar Complete Including Bending 08/15/24 * XR Hip 2-3 Views Left + Pelvis 08/15/24 * MA Mamm Screen w/CAD if perf and 3D Tye 12/08/23 [facility] Evaluation + Plan note Future Appointments Appointment Date:09/06/2024 10:00:00 AM Scheduled Provider: Location:[facility] [place] Appointment Type:PT Eval (FT) Appointment Date:09/07/2024 11:20:00 AM Scheduled Provider:Brigitte Carpenter Location:[facility] Appointment Type:FM Open Appointment Date:09/25/2024 08:30:00 AM Scheduled Provider: Location:[facility] Appointment Type:MA Screen (FT) Future Scheduled Tests Radiology* XR Spine Lumbar Complete Including Bending 08/15/24 * XR Hip 2-3 Views Left + Pelvis 08/15/24 * MA Mamm Screen w/CAD if perf and 3D Tye 09/25/24 [facility] evaluation + Plan note Future Appointments Appointment Date:09/06/2024 10:00:00 AM Scheduled Provider: Location[facility] Appointment Type:PT Eval (FT) Appointment Date:09/07/2024 11:20:00 AM Scheduled Provider:Brigitte Carpenter Location:[facility] Appointment Type:FM Open Appointment Date:09/25/2024 08:30:00 AM Scheduled Provider: Location:.[facility] Appointment Type:MA Screen (FT) Future Scheduled Tests Radiology* MA Mamm Screen w/CAD if perf and 3D Tye 09/25/24 [facility] evaluation + Plan note Future Appointments Appointment Date:09/21/2024 11:30:00 AM Scheduled Provider: [facility] Eval (FT) Appointment Date:09/25/2024 08:30:00 AM Scheduled Provider: [facility] Type:MA Screen (FT) Future Scheduled Tests Laboratory* HgbA1c 09/07/24 * Vitamin D 25 Hydroxy 09/07/24 * Comprehensive Metabolic Panel 09/07/24 * Vitamin B12 Level 09/07/24 Radiology* MA Mamm Screen w/CAD if perf and 3D Tye 09/25/24 [facility] evaluation + Plan note Future Appointments Appointment Date:09/25/2024 08:30:00 AM Scheduled Provider: Location:.[facility] Appointment Type:MA Screen (FT) Future Scheduled Tests Laboratory* HgbA1c 24 * Vitamin D 25 Hydroxy 09/07/24 * Comprehensive Metabolic Panel 09/07/24 * Vitamin B12 Level 09/07/24 Radiology* MA Mamm Screen w/CAD if perf and 3D Tye 09/25/24 [facility] evaluation + Plan note Future Appointments Appointment Date:03/04/2025 01:00:00 PM Scheduled Provider:Elayne Sanchez Location:[facility] Appointment Type:FM New Patient - Adult Future Scheduled Tests Laboratory* HgbA1c 24 * Vitamin D 25 Hydroxy 12/13/24 * Comprehensive Metabolic Panel 09/07/24 * Vitamin B12 Level 09/07/24 [facility] evaluation + Plan note Future Appointments Appointment Date:04/02/2025 01:00:00 PM Scheduled Provider:Elayne Sanchez Location:[facility] Appointment Type:FM Open Future Scheduled Tests Laboratory* HgbA1c 12/13/24 * Vitamin D 25 Hydroxy 24 * Comprehensive Metabolic Panel 09/07/24 * Vitamin B12 Level 09/07/24 [facility] Evaluation + Plan note Future Appointments Appointment Date:05/02/2025 08:15:00 AM Scheduled Provider:Mateusz Rodriguez MD Location:[facility] Appointment Type:BADH Follow Up Appointment Date:05/06/2025 01:00:00 PM Scheduled Provider:Elayne Sanchez Location:[facility] Appointment Type:FM Open Future Scheduled Tests Laboratory* HgbA1c 12//24 * Vitamin D 25 Hydroxy 24 * Comprehensive Metabolic Panel 09/07/24 * Vitamin B12 Level 09/07/24 [facility] evaluation + Plan note Future Appointments Appointment Date:07/16/2025 10:20:00 AM Scheduled Provider:Elayne Sanchez Location:[facility] Appointment Type:FM Open Future Scheduled Tests Laboratory* HgbA1c 12/13/24 * Vitamin D 25 Hydroxy 13/24 * Comprehensive Metabolic Panel 09/07/24 * Vitamin B12 Level 09/07/24 [facility] evaluation + Plan note Future Appointments Appointment Date:06/13/2025 10:20:00 AM Scheduled Provider:Leon Marti Location:[facility] Appointment Type:FM Open Future Scheduled Tests Laboratory* HgbA1c 12/13/24 * Vitamin D 25 Hydroxy 12/13/24 * Comprehensive Metabolic Panel 24 * Vitamin B12 Level 09/07/24 [facility] Evaluation + Plan note Future Appointments Appointment Date:10/17/2025 09:40:00 AM Scheduled Provider:Leon Marti Location:[facility] Appointment Type: Open Future Scheduled Tests Laboratory* HgbA1c 09/07/24 * Vitamin D 25 Hydroxy 09/07/24 * Comprehensive Metabolic Panel 09/07/24 * Vitamin B12 Level 09/07/24 [facility] Evaluation note* Diagnosis History of cervical cancer- Primary Personal history of malignant neoplasm of cervix uteri Encounter for follow-up surveillance of cervical cancer Unspecified follow-up examination [facility] Diagnosis Other abnormal cytological finding of specimen from cervix [R87.618 (ICD-10-CM)]- Primary [facility] Diagnosis History of cervical cancer- Primary Personal history of malignant neoplasm of cervix uteri Cervical high risk human papillomavirus (HPV) DNA test positive [R87.810 (ICD-10-CM)] Cervical high risk human papillomavirus (HPV) DNA test positive [facility] Diagnosis Degeneration of intervertebral disc of lumbosacral region with discogenic back pain and lower extremity pain- Primary Chronic right-sided low back pain with right-sided sciatica Low back pain, unspecified back pain laterality, unspecified chronicity, unspecified whether sciatica present documented [facility]* Diagnosis Degeneration of intervertebral disc of lumbosacral region with discogenic back pain and lower extremity pain- Primary Chronic right-sided low back pain with right-sided sciatica Strain of left groin documented in this encounter [facility]* Diagnosis DDD (degenerative disc disease), lumbosacral- Primary Degeneration of lumbar or lumbosacral intervertebral disc Left-sided low back pain with sciatica Scoliosis, unspecified scoliosis type, unspecified spinal region Recurrent headache Pelvis fracture (HCC) Unspecified closed fracture of pelvis [facility] Narrative No data available for this section [facility] Discharge instructions No data available for this section [facility] Progress note No data available for this section [facility] Reason for referral (narrative) , wants letter for support animal Referred by: Adeline Fernandez MD [facility] [place] for referral (narrative) Referred by: Brigitte Carpenter [facility] Reason for visit Narrative* Rehabilitation - Outpatient (Routine) - Authorized Specialty Diagnoses / Procedures Referred By Tayler engle Referred To Contact Physical Therapy Diagnoses Degeneration of intervertebral disc of lumbosacral region with discogenic back pain and lower extremity pain Chronic right-sided low back pain with right-sided sciatica Procedures VA OFFICE/OUTPATIENT NEW HIGH MDM 60 MINUTES Kizzy Herrera PA [address] [place] [address] Phone: tel: fax: Alexx [address], PT [address] [place] [address] Phone: tel: fax: Referral ID Status Reason Start Date Expiration Date Visits Requested Visits Authorized [id number] Authorized Specialty Services Required 10/22/2024 11/22/2024 12 12 [facility] Summary Purpose Family History No Family History Records FoundNo Family History Records Found No data available for this section No data available for this section No data available for this section No data available for this section No data available for this section No data available for this section No data available for this section No data available for this section No data available for this section No data available for this section No Family History Records Found No data available for this section No data available for this section No Family History Records FoundNo Family History Records FoundNo Family History Records FoundNo Family History Records FoundNo Family History Records FoundNo Family History Records FoundNo Family History Records FoundNo Family History Records FoundNo Family History Records FoundNo Family History Records FoundNo Family History Records FoundNo Family History Records FoundNo Family History Records Found No data available for this section No Family History Records FoundNo Family History Records FoundNo Family History Records Found No data available for this section No data available for this section No data available for this section No Family History Records FoundNo Family History Records FoundNo Family History Records FoundNo Family History Records FoundNo Family History Records FoundNo Family History Records FoundNo Family History Records Found No data available for this section No Family History Records Found No data available for this section No Family History Records FoundNo Family History Records FoundNo Family History Records FoundNo Family History Records FoundNo Family History Records FoundNo Family History Records FoundNo Family History Records FoundNo Family History Records FoundNo Family History Records FoundNo Family History Records FoundNo Family History Records FoundNo Family History Records FoundNo Family History Records Found No data available for this section No data available for this section No data available for this section No Family History Records FoundNo Family History Records FoundNo Family History Records FoundNo Family History Records FoundNo Family History Records Found No data available for this section No data available for this section No data available for this section No Family History Records FoundNo Family History Records Found No data available for this section No data available for this section No data available for this section No data available for this section No data available for this section No data available for this section No Family History Records FoundNo Family History Records Found No data available for this section No data available for this section No Family History Records FoundNo Family History Records FoundNo Family History Records FoundNo Family History Records FoundNo Family History Records FoundNo Family History Records FoundNo Family History Records Found No data available for this section No data available for this section No data available for this section No data available for this section No Family History Records FoundNo Family History Records FoundNo Family History Records FoundNo Family History Records FoundNo Family History Records FoundNo Family History Records Found No data available for this section No Family History Records FoundNo Family History Records Found No data available for this section No data available for this section No Family History Records FoundNo Family History Records FoundNo Family History Records FoundNo Family History Records FoundNo Family History Records FoundNo Family History Records FoundNo Family History Records Found No data available for this section No Family History Records FoundNo Family History Records FoundNo Family History Records Found No data available for this section No data available for this section No data available for this section No Family History Records FoundNo Family History Records FoundNo Family History Records FoundNo Family History Records FoundNo Family History Records FoundNo Family History Records FoundNo Family History Records FoundNo Family History Records FoundNo Family History Records FoundNo Family History Records FoundNo Family History Records Found Advance Directives No Advanced Directives Records FoundDocuments on File Type Date Recorded Patient Professional Shopper Expl anation Advance Directive(s) 01/10/2017 11:40 AM Additional Source Comments INFORMATION SOURCE (unrecogn ized section and content) DATE CREATED AUTHOR 03/16/2018 [facility] DATE CREATED AUTHOR AUTHOR'S ORGANIZ ATION 11/15/2022 [facility] DATE CREATED AUTHOR AUTHOR'S ORGANIZ ATION 03/04/2024 [facility] DATE CREATED AUTHOR AUTHOR'S ORGANIZ ATION 03/11/2024 [facility] DATE CREATED AUTHOR AUTHOR'S ORGANIZ ATION 03/12/2024 [facility] DATE CREATED AUTHOR AUTHOR'S ORGANIZ ATION 03/15/2024 [facility] DATE CREATED AUTHOR AUTHOR'S ORGANIZ ATION 03/16/2024 [facility] DATE CREATED AUTHOR AUTHOR'S ORGANIZ ATION 04/13/2024 [facility] DATE CREATED AUTHOR AUTHOR'S ORGANIZ ATION 05/07/2024 [facility] DATE CREATED AUTHOR AUTHOR'S ORGANIZ ATION 06/04/2024 [facility] DATE CREATED AUTHOR AUTHOR'S ORGANIZ ATION 06/22/2024 [facility] DATE CREATED AUTHOR AUTHOR'S ORGANIZ ATION 08/26/2024 [facility] DATE CREATED AUTHOR AUTHOR'S ORGANIZ ATION 09/06/2024 [facility] DATE CREATED AUTHOR AUTHOR'S ORGANIZ ATION 09/09/2024 [facility] DATE CREATED AUTHOR AUTHOR'S ORGANIZ ATION 10/18/2024 [facility] DATE CREATED AUTHOR AUTHOR'S ORGANIZ ATION 10/25/2024 [facility] DATE CREATED AUTHOR AUTHOR'S ORGANIZ ATION 11/03/2024 [facility] DATE CREATED AUTHOR AUTHOR'S ORGANIZ ATION 02/21/2025 [facility] DATE CREATED AUTHOR AUTHOR'S ORGANIZ ATION 02/22/2025 [facility] DATE CREATED AUTHOR AUTHOR'S ORGANIZ ATION 03/06/2025 [facility] DATE CREATED AUTHOR AUTHOR'S ORGANIZ ATION 04/03/2025 [facility] DATE CREATED AUTHOR AUTHOR'S ORGANIZ ATION 04/05/2025 [facility] DATE CREATED AUTHOR AUTHOR'S ORGANIZ ATION 05/26/2025 [facility] DATE CREATED AUTHOR AUTHOR'S ORGANIZ ATION 06/14/2025 [facility] DATE CREATED AUTHOR AUTHOR'S ORGANIZ ATION 06/15/2025 [facility] DATE CREATED AUTHOR AUTHOR'S ORGANIZ ATION 06/15/2025 [facility] DATE CREATED AUTHOR AUTHOR'S ORGANIZ ATION 06/18/2025 [facility] Care Team (unrecognized sect ion and content) Upper Cutter Relationship Specialty Start Date End Date Osvaldo Bearden MD [address] [place] [address] PCP - General Family Medicine 04/19/18 [place] [address] [place], [place] [id number] Physician Radiation Oncology 11/08/16 Yari Barrientos MD [address] [place], [place] [id number] Physician Radiation Oncology 11/24/16 Elyse Siddiqi RN Specialty Customer Support Specialist Radiation Oncology 03/10/17 Upper Cutter Relationship Specialty Start Date End Date Osvaldo Bearden MD [address] [place] [address] PCP - General Family Medicine 04/19/18 [place] [address] [place] [address] Physician Radiation Oncology 11/08/16 Yari Barrientos MD [address] [place], [place] [id number] Physician Radiation Oncology 11/24/16 Elyse Siddiqi, RN Specialty Customer Support Specialist Radiation Oncology 03/10/17 Upper Cutter Relationship Specialty Start Date End Date Osvaldo Bearden MD [address] [place] [address] PCP - General Family Medicine 04/19/18 [place] [address] [place] [address] Physician Radiation Oncology 11/08/16 Yari Barrientos MD [address] [place] [address] Physician Radiation Oncology 11/24/16 Elyse Siddiqi RN Specialty Customer Support Specialist Radiation Oncology 03/10/17 Upper Cutter Relationship Specialty Start Date End Date Osvaldo Bearden MD [address] [place] [id number] PCP - General Family Medicine 04/19/18 [place] [address] [place] [address] Physician Radiation Oncology 11/08/16 Yari Barrientos MD [address] [place] [address] Physician Radiation Oncology 11/24/16 Elyse Siddiqi RN Specialty Customer Support Specialist Radiation Oncology 03/10/17 Upper Cutter Relationship Specialty Start Date End Date Osvaldo Bearden MD [address] [place] [id number] PCP - General Family Medicine 04/19/18 [place] [address] [place] [address] Physician Radiation Oncology 11/08/16 Yari Barrientos MD [address] [place] [address] Physician Radiation Oncology 11/24/16 Elyse Siddiqi RN Specialty Customer Support Specialist Radiation Oncology 03/10/17 Source Comments (unrecognize d section and content) In the event this informatio n is protected by the Federal Confidentiality of Alcohol and Drug Abuse Patient Records regulations: The Federal rules restrict any use of the information to criminally investigate or prosecute any alcohol or drug abuse patient.[facility] the event this information is protected by the Federal Confidentiality of Alcohol and Drug Abuse Patient Records regulations: The Federal rules restrict any use of the information to criminally investigate or prosecute any alcohol or drug abuse patient.[facility] the event this information is protected by the Federal Confidentiality of Alcohol and Drug Abuse Patient Records regulations: The Federal rules restrict any use of the information to criminally investigate or prosecute any alcohol or drug abuse patient.[facility] the event this information is protected by the Federal Confidentiality of Alcohol and Drug Abuse Patient Records regulations: The Federal rules restrict any use of the information to criminally investigate or prosecute any alcohol or drug abuse patient.[facility] the event this information is protected by the Federal Confidentiality of Alcohol and Drug Abuse Patient Records regulations: The Federal rules restrict any use of the information to criminally investigate or prosecute any alcohol or drug abuse patient.[facility] the event this information is protected by the Federal Confidentiality of Alcohol and Drug Abuse Patient Records regulations: The Federal rules restrict any use of the information to criminally investigate or prosecute any alcohol or drug abuse patient.[facility] the event this information is protected by the Federal Confidentiality of Alcohol and Drug Abuse Patient Records regulations: The Federal rules restrict any use of the information to criminally investigate or prosecute any alcohol or drug abuse patient.[facility] Reason for Visit (unrecogniz ed section and content) Reason Comments Consult Reason Comments Orders Reason Comments Appointment Confirmation Reason Comments Results Reason Comments Established Patient Reason Comments Osteoarthritis Pain Reason Comments Patient Question Reason Onset Date Comments pubic rami fx 04/04/2025 FOR RECORDS PERTAINING TO PATIENTS WHO ARE OR HAVE BEEN ENROLLED IN A CHEMICAL DEPENDENCY/SUBSTANCEABUSE PROGRAM, SOME INFORMATION MAY BE OMITTED. This clinical summary was aggregated from multiple sources. Caution should be exercised in using it in the provision of clinical care. This summary normalizes information from multiple sources, and as a consequence, information in this document may materially change the coding, format and clinical context of patient data. In addition, data may be omitted in some cases. CLINICAL DECISIONS SHOULD BE BASED ON THE PRIMARY CLINICAL RECORDS. [facility] [employer] [facility]. provides no warranty or guarantee of the accuracy or completeness of information in this document.
--- NOTE | 2025-06-19 12:57 | CT_ITS ---
The [address] [address] Patient Name: SHARRI DIETZ MRN: [id number] date: 1970 Sex: F Assigned Patient Location: ER Current Patient Location: ER Accession/Order Number: [id number] Exam Date: 06/19/2025 12:50 Report Date: 06/19/2025 13:21 At the request of: FILOMENA HERNANDEZ MD Procedure: CT pelvis wo con CT pelvis wo con 06/19/2025 12:57 PM SIGNS AND SYMPTOMS: Nonhealing pelvic fractures TECHNIQUE: Multidetector CT axial slices of the pelvis without IV contrast. Multiplanar and 3-D reformats were performed and viewed on a separate workstation and reviewed to further define anatomy and possible pathology. CT was performed with one or more of the following dose reduction techniques: Automated exposure control, adjustment of the mA and/or kV according to patient size, or use of iterative reconstruction technique. COMPARISON: 06/19/2025 FINDINGS: Sclerotic changes are noted along both sides of the sacroiliac joints, greatest in the right sacral ala and within the left iliac bone consistent with healing fractures. There are nonunited fractures with healing response involving the left superior and inferior pubic rami with similar displacement when compared to the previous radiographs. The joint spaces of the hips are preserved. Degenerative changes are noted in the lower lumbar spine. Atherosclerotic changes are noted in the abdominal aorta and its branches. CT/CT pelvis wo con IMPRESSION: Sclerotic changes are noted along both sides of the sacroiliac joints, greatest in the right sacral ala and within the left iliac bone consistent with healing fractures. There are nonunited fractures with healing response involving the left superior and inferior pubic rami with similar displacement when compared to the previous radiographs. Impression dictated by: Mika Urbina M.D. 06/19/2025 1:21 PM Dictation Location: [place] [address] Electronically authenticated by: [id number] Y Date: 06/19/2025 13:21
== END 2025-06-19 14:20 | disposition home or self-care (01) ==
PROVIDERS: Emergency Provider Emergency Medicine
DX: S32.512D Fracture of superior rim of left pubis, subsequent encounter for fracture with routine healing (principal); S32.592D Other specified fracture of left pubis, subsequent encounter for fracture with routine healing; W19.XXXD Unspecified fall, subsequent encounter; R51.9 Headache, unspecified
CPT/HCPCS: 72170; 72192; 76376; 99284